=== PATIENT | female | born 1955 | race Caucasian/White ===

== ENCOUNTER → 2024-01-25 06:39 | Outpatient (REF) | payer OTHER, SELFPAY | LOC: MRI 06:39 | PROVIDERS: ATTENDING PHYSICIAN Orthopaedic Surgery; FAMILY PHYSICIAN Student in an Organized Health Care Education/Training Program | DX: M54.50 Low back pain, unspecified (principal); R10.2 Pelvic and perineal pain | CPT/HCPCS: 72148; 72195 ==

== ENCOUNTER → 2024-03-02 16:44 | Outpatient (REF) | payer OTHER, SELFPAY | LOC: RAD 16:44 | PROVIDERS: ATTENDING PHYSICIAN Internal Medicine | DX: J40 Bronchitis, not specified as acute or chronic (principal) | CPT/HCPCS: 71046 ==

== ENCOUNTER → 2024-03-14 15:04 | Outpatient (REF) | payer OTHER, SELFPAY | LOC: HWRAD 15:04 | PROVIDERS: ATTENDING PHYSICIAN Internal Medicine Critical Care Medicine; FAMILY PHYSICIAN Student in an Organized Health Care Education/Training Program | DX: J32.9 Chronic sinusitis, unspecified (principal) | CPT/HCPCS: 70486 ==

== ENCOUNTER 2024-03-22 13:25 | Inpatient (IN) | payer OTHER, SELFPAY ==
[2024-03-22] VITALS (11 sets, daily range): BP systolic 76–160; BP diastolic 42–96; BMI 31.4
--- NOTE | 2024-03-22 08:49 | ED.GENMED ---
History of Present Illness
General
Chief Complaint: Breathing Problem
Source: patient, records and ambulance crew
Exam Limitations: none
Time Seen by Provider: 03/22/24 08:43
Nursing documentation reviewed up to this point in time: agreed with
Travel History
Have you had any contact with someone who has COVID-19?: No
Do you have any symptoms of coronavirus? Fever > 100 degrees, chills, cough, shortness of breath, sore throat, loss of taste or smell, muscle aches, or headache?: No
History of Present Illness
History of Present Illness:
68-year-old female with past medical history of asthma/COPD, hypertension, hyperlipidemia, diabetes who presents to the emergency room from home via EMS for evaluation of shortness of breath and cough. Patient reports symptoms started earlier this
morning around 5 AM and they have been constant and worsening since that time. She reports hacking cough with wheezing and shortness of breath. She thinks similar to prior asthma/COPD exacerbations. She says that she used her rescue inhaler as
well as nebulizer treatment at home without improvement and EMS was called to bring her to the hospital for assessment. She does note that she just finished a short course of steroids for an asthma/COPD exacerbation. She denies any chest pain.
She denies any subjective fever. Denies any URI type symptoms recently. She denies any GI issues. Per EMS on their arrival she was hypoxic to 88% and was placed on nasal oxygen. She was given 125 mg of IV Solu-Medrol from EMS as well as [address] to the hospital[address]
Past History
Past History
ED Past Medical History: Asthma, CVA, HTN, Hypercholesterolemia, NIDDM, [place] and Psychiatric
ED Past Surgical History: Cholecystectomy, Gynecological (Hysterectomy), Orthopedic (right knee replacement) and Other (Gastric bypass)
Social History
Tobacco: Non-smoker
Alcohol: None
Drug: None
Personal:
Living: alone
Employment: Disabled
Family History
Family History: Asthma
Review of Systems
Review of Systems
All Other Systems: ROS reviewed and negative except as documented in HPI and ROS
Constitutional: Denies fever or chills
EENT: Denies sore throat or runny nose
Respiratory: Reports cough and trouble breathing
Cardiac: Denies chest pain or palpitations
ABD/GI: Denies abdominal pain, nausea or vomiting
: Denies dysuria or flank pain
Musculoskeletal: Denies edema, neck pain or back pain
Neurological: Denies dizzy or headache
Phy Exam
Physical Exam
Physical Exam:
General: Awake, alert
Head: Normocephalic, atraumatic
Eyes: Conjunctiva normal
Throat: Airway intact, handling secretions
Neck: Trachea midline, supple without meningismus
Lungs: Patient is hypoxic to 88% on room air, tachypneic, speaking in 3-4 word sentences; she has diffuse expiratory wheezing and hacking cough
Heart: Tachycardia with regular rhythm, no murmurs, gallops, or rubs
Abd: Soft, non distended, nontender
Neuro: Cranial nerves grossly intact, speech fluid
Skin: no rash
Extremities: Trace bilateral lower extremity edema, equal pulses in all extremities
Scores
Heart Failure Risk
Heart Failure Risk Score: Not Applicable
Heart Score for Chest Pain Patients
STEMI patient?: Not applicable
Withdrawal Assessment of Alcohol
Withdrawal Assessment Completed?: Not applicable
Course
Orders/Labs/Results
Orders:
Orders
03/22/24 08:48
Electrocardiogram (*1) Urgent
Reason for Study: Shortness of Breath
EKG- Treatment ONCE
CR Chest Portable - 1 View Urgent
Comment:
Reason For Exam: cough, fever
Reason Study Needs to be Portable: Unable to Transport
03/22/24 08:49
Ipratropium/Albuterol Sulfate [Duoneb] 3 ml INH R NOW STA
03/22/24 08:51
Acetaminophen 1000MG/100Ml [Ofirmev] 1,000 mg in 100 ml .ROUTE .STK-MED
Acetaminophen [Tylenol/Feverall] 650 mg RECTAL NOW STA
03/22/24 08:53
COVID-19 Antigen Urgent
Source: Nasal Swab
Complete Blood Count/With Diff Urgent
Comprehensive Metabolic Panel Urgent
Lactate Level [Lactic Acid] Urgent
Blood Culture Q30M
ELINOR Source: Blood/Venous
Specimen Description:
Influenza A+B Rapid Molecular Urgent
ELINOR Source: Nasal Swab
Specimen Description:
03/22/24 08:54
Blood Culture Q30M
ELINOR Source: Blood/Venous
Specimen Description:
03/22/24 09:10
CefTRIAXone [Rocephin] 1,000 mg IV NOW STA
03/22/24 09:16
Urinalysis Reflex To Culture Urgent
Date Specimen was Collected: 03/22/24
Time Specimen was Collected: 08:58
Urine Microscopic Reflex Cult Urgent
Urine Culture Urgent
ELINOR Source: U
Specimen Description:
Date Specimen was Collected: 03/22/24
Time Specimen was Collected: 08:58
03/22/24 09:18
Doxycycline Hyclate [Vibramycin] 100 mg 0.9% Sodium Chloride 250 ml [Nss] 250 ml IV NOW
03/22/24 09:25
0.9% Sodium Chloride 500 ml [Nss] 500 ml IV BOLUS
Abnormal Lab Results
03/22/24 03/22/24
08:53 09:16
MCHC 32.4 L g/dL
(33.0-37.0)
Absolute Neuts (auto) 8.0 H 10^3/uL
(1.4-6.5)
Absolute Lymphs (auto) 0.6 L 10^3/uL
(1.2-3.4)
Neutrophils % 91.0 H %
(42.2-75.2)
Lymphocytes % 7.1 L %
(20.5-51.1)
Monocytes % 1.5 L %
(1.7-9.3)
BUN 18 H mg/dl
(7-17)
Glucose 151 H mg/dl
(70-99)
Lactic Acid 2.3 H mmol/L
(0.7-2.0)
Total Bilirubin 1.4 H mg/dl
(0.2-1.3)
Alkaline Phosphatase 144 H U/L
(38-126)
Ur Occult Blood Reflex 1+ A
(Negative)
Leukocyte Esterase Rfl 1+ A
(Negative)
Urine RBC 3-6 A /HPF
(0-2)
Urine Bacteria (Reflex) Many A
(Negative)
03/22/24 08:53
03/22/24 08:53
Vital Signs
Initial and Last Documented VS:
Initial Vital Signs
BP
160/81
03/22/24 08:45
Last Documented Vital Signs
Temp Pulse Resp BP Pulse Ox
39.4 C H 102 24 121/60 93
03/22/24 08:46 03/22/24 10:45 03/22/24 10:45 03/22/24 10:00 03/22/24 10:45
MDM/Problems Addressed
Differential Diagnosis Includes:
Asthma exacerbation/COPD exacerbation, pneumonia, bronchitis
MDM/Problems Addressed:
68-year-old female with history as above presents for cough and shortness of breath that she says started earlier this morning and has not improved with home inhalers/nebs. Received IV steroid and DuoNeb from EMS on the way to the hospital. On
arrival she is hypertensive, tachycardic, tachypneic, hypoxic, febrile. Exam as above. Plan to place an IV check labs including a CBC and a CMP, lactate, blood cultures. Send swabs for COVID and flu. Obtain chest x-ray and EKG. Will treat with
Tylenol for fever. Will treat with DuoNeb. Reassess after the above.
Chest x-ray reviewed by me shows right-sided pneumonia�will cover with antibiotics for community-acquired pneumonia. Patient with multiple SIRS criteria concern potentially for sepsis also high risk given her history of asthma/COPD�warrants
admission for treatment of pneumonia. Will discuss with hospitalist pending labs.
Labs reviewed: CBC shows predominant neutrophils but otherwise unremarkable, CMP no clinically significant abnormalities. Her lactate is slightly elevated at 2.3. Provide some gentle fluids. COVID and flu negative. Case discussed with
hospitalist for admission.
Chronic conditions affecting care:
Asthma/COPD
Acute Exacerbation and/or Progression of Chronic Illness:
Acutely hypertensive
Acute Exacerbation and/or Progression of Chronic Illness: HTN
*Radiology
Radiology exam reviewed: preliminary read by ED provider and radiology read reviewed
*Pulse Oximetry
Patient hypoxic: yes
*EKG
Interpreted by ED Provider?: Yes
Heart Rate: 107
Rate: tachycardiac
Rhythm: sinus and sinus tachycardia
Sayre: normal axis
Interval: normal interval
QRS Pattern: normal QRS
Ischemia: non-specific ST changes
*Critical Care Note
Total Time (30-74mins, 75-104mins- exclusive of procedures): 35
comment:
Critical care statement: A total of 35 minutes of critical care time was provided for this patient. This includes management of unstable vital signs, evaluation of the patient at bedside, frequent reassessment, discussion with
consultants/hospitalist, and review of pertinent medical records. This time was separate from time utilized to perform any aforementioned documented procedures
Data Reviewed
Review of Other/Old Records Reveals: Labs and Records
Source: patient, records and ambulance crew
Patient Management
Discussion with other providers: Hospitalist (Discussed with hospitalist)
Escalation/DeEscalation of care consider admission/obs:
Admission indicated
ED Attending Note
-
Portions of this chart may have been created with voice recognition software.� Occasional wrong word or��sound alike� substitutions may have occurred due to the inherent limitations of voice recognition software.
Discharge Plan
Departure
Patient Disposition: Admit
Date of Disposition: 03/22/24
Time of Disposition: 09:23
Admit to doctor: Arpan
Presentation/result/management discussed w/ accepting MD/DO: Hospitalist
Discharge Problem:
Pneumonia, Sepsis, COPD exacerbation
Prescriptions:
No Action
famotidine 40 MG tablet
40 mg PO HS
atorvastatin 80 mg Tablet
80 mg PO DAILY
clopidogrel 75 mg Tablet
75 mg PO DAILY
pantoprazole [Protonix] 40 mg Tablet,Delayed Release (Dr/Ec)
40 mg PO BID
benzonatate 200 mg Capsule
200 mg PO TIDPRN PRN (Reason: cough)
donepezil 10 mg Tablet
10 mg PO HS
sennosides-docusate sodium 8.6-50 mg Tablet
3 tab-cap PO HS Qty: 0
meclizine 12.5 mg Tablet
12.5 mg PO TID
alprazolam 0.5 mg Tablet
0.5 mg PO QID
Patient Comments:
07/13/2023: last filled 07/13/23, 120 tabs for 30 days from [facility]
levothyroxine 50 mcg Tablet
50 mcg PO DAILY
mirtazapine 45 mg Tablet
45 mg PO HS
valsartan 40 mg Tablet
20 mg PO DAILY
levalbuterol tartrate [Xopenex HFA] 45 mcg/actuation Hfa Aerosol Inhaler
2 inh INHALATION R Q6HPRN PRN (Reason: sob) Qty: 0
ZTlido 1.8 % Adhesive Patch,Medicated
3 patch TOPICAL DAILYPRN PRN (Reason: b/l knee,hip and/or lower back)
Rx Instructions:
UP TO 3 patches a day max on at HS off in am
benztropine 1 mg Tablet
1 mg PO BID@1200,2000
cyclobenzaprine 10 mg Tablet
10 mg PO HS
cyanocobalamin (vitamin B-12) 1,000 mcg Tablet
1,000 mcg PO Q48H
hydrocodone-acetaminophen 10-325 mg Tablet
1 tab PO Q6H PRN (Reason: severe pain)
Patient Comments:
07/13/2023: last filled 07/02/23, 120 tabs for 30 days from [facility]
benztropine 2 mg Tablet
2 mg PO DAILY
ergocalciferol (vitamin D2) 1,250 mcg (50,000 unit) Capsule
1,250 mcg PO WE
ondansetron 4 mg Tablet,Disintegrating
4 mg PO BIDPRN PRN (Reason: nausea)
memantine 10 mg tablet
10 mg PO BID
lidocaine-prilocaine 2.5-2.5 % Cream
1 applic TOPICAL Q8HPRN PRN (Reason: breakthrough mild pain )
Rx Instructions:
apply to bilateral knees, bilateral hips and lower back
tizanidine 2 mg tablet
2 mg PO BID
furosemide 40 MG tablet
40 mg PO TUSA
budesonide-formoterol [Symbicort] 160-4.5 mcg/actuation Hfa Aerosol Inhaler
2 inh INHALATION R BID
fluticasone propionate [Flonase] 50 mcg/actuation [place],Suspension
1 spray INTRANASAL BID
cranberry 500 mg Capsule
4,200 mg PO BID
pregabalin [Lyrica] 25 mg Capsule
25 mg PO TIDPRN PRN (Reason: neuropathy)
Viactiv 500-100-40 mg-unit-mcg Tablet,Chewable
1 tab PO DAILY
potassium chloride 20 mEq Tablet Extended Release
20 meq PO BID
sucralfate 1 gram tablet
1 g PO BIDPRN PRN (Reason: stomach ulcer)
Interventions
Interventions:
*Risk Screen - Suicide Last Done: 03/22/24 09:12
*General Assessment Last Done: 03/22/24 09:12
*Neglect/Abuse Screening Last Done: 03/22/24 09:12
*ED COVID-19 Vaccine History Last Done: 03/22/24 09:12
ED- Cardiac Assessment Last Done: 03/22/24 09:00
ED- Pulmonary Assessment Last Done: 03/22/24 09:00
Discharge Date and Time
Print Language: NAURUAN
[2024-03-22] MEDS: TYLENOL/FEVERALL 650 MG RECTAL (09:01)
[2024-03-22] MEDS: DUONEB 3 ML INH (09:01)
[2024-03-22 09:06] LABS: % Basophils 0.1 % (0-2); % Eosinophils 0.1 % (0-6); % Immature Granulocytes 0.2 % (0-0.5); % Lymphocytes 7.1 % (20.5-51.1); % Monocytes 1.5 % (1.7-9.3); Absolute Lymphocytes 0.6 10^3/uL (1.2-3.4); Absolute Monocytes 0.1 10^3/uL (0.1-0.6); Hematocrit 41.7 % (37.0-47.0); Hemoglobin 13.5 g/dL (12.0-16.0); Mean Corp Hgb Conc. 32.4 g/dL (33.0-37.0); Mean Corpuscular Hgb 29.7 pg (27.0-31.0); Mean Corpuscular Volume 91.9 fL (81.0-99.0); Nucleated Red Blood Cells % 0 %; Platelet Count 209 10^3/uL (130-400); Red Blood Cell Count 4.54 10^6/uL (4.20-5.40); Red Cell Dist. Width 13.4 % (11.5-14.5); White Blood Cell Count 8.8 10^3/uL (4.8-10.8)
[2024-03-22] MEDS: ROCEPHIN 1000 MG IV (09:17)
[2024-03-22 09:19] LABS: COVID-19 Antigen Negative (Negative)
[2024-03-22 09:20] LABS: Lactic Acid 2.3 mmol/L (0.7-2.0)
[2024-03-22 09:23] LABS: ALT (SGPT) 22 U/L (0-35); AST (SGOT) 29 U/L (14-36); Albumin 3.9 g/dl (3.5-5.0); Alkaline Phosphatase 144 U/L (38-126); Blood Urea Nitrogen 18 mg/dl (7-17); Calcium 8.5 mg/dl (8.4-10.2); Carbon Dioxide 27 mmol/L (22-30); Chloride 101 mmol/L (98-107); Glucose 151 mg/dl (70-99); Potassium 3.8 mmol/L (3.5-5.1); Sodium 137 mmol/L (135-145); Total Bilirubin 1.4 mg/dl (0.2-1.3); Total Protein 6.7 g/dl (6.3-8.2); eGFR > 60.00
[2024-03-22 09:28] LABS: Urine Albumin Negative (Neg - Trace); Urine Bilirubin Negative (Negative); Urine Character Clear (Clear); Urine Color Yellow; Urine Glucose Negative (Negative); Urine Ketone Negative (Negative); Urine Leukocyte 1+ (Negative); Urine Nitrite Negative (Negative); Urine Occult Blood 1+ (Negative); Urine Specific Gravity 1.015 (<1.030); Urine Urobilinogen Negative (Neg - 1+)
[2024-03-22] MEDS: NSS 500 IV (09:51)
[2024-03-22] MEDS: VIBRAMYCIN 260 MG IV (09:52)
[2024-03-22 10:14] LABS: Urine Bacteria Many (Negative); Urine Squamous Cell 0-2 /LPF (Few)
--- NOTE | 2024-03-22 11:47 | HPS.HSE ---
Family Physician
-
Family Physician: Torrie Arizmendi MD
Chief Complaint
-
Shortness of breath
History of Present Illness
68-year-old female presented to the ER with shortness of breath. Symptoms started white hat hacker and has been getting worse. She also has had a cough and wheezing. She used nebulizer without any improvement. Patient recently passed a course of
steroids for respiratory illness.
Medical History
Past Medical History
Past Medical History: Reports Other
Additional Past Medical History:
History of stroke, cognitive dysfunction, asthma, COPD, lung nodule, hypertension, hyperlipidemia, diverticulosis, GERD, fibromyalgia, osteoarthritis, rheumatoid arthritis, diabetes, glaucoma with surgery, anemia, anxiety and depression, obesity
Past Surgical History: Reports Other
Additional Past Surgical History:
Partial hysterectomy, cholecystectomy, right knee repair, bariatric surgery, tonsillectomy, carpal tunnel surgery, cataract surgery, glaucoma surgery
Social History
Tobacco: Non-smoker
Alcohol: None
Living: With Family
Family History
Family History: Diabetes (Father), Hypertension (Father and mother) and Other (CVA mother)
Allergies / Home Medications
Allergies reflects when Allergies were last updated in [facility].
Home Medications with original date entered in [facility]
Allergy/Medication List:
Allergies
Allergy/AdvReac Type Severity Reaction Status Date / Time
celecoxib [From Celebrex] Allergy Unknown Verified 03/22/24 08:47
hydrochlorothiazide Allergy Unknown Verified 03/22/24 08:47
NSAIDS (Non-Steroidal Allergy Gastric Verified 03/22/24 08:47
Anti-Inflamma Bypass
pregabalin [From Lyrica] Allergy Unknown Verified 03/22/24 08:47
promethazine Allergy Unknown Verified 03/22/24 08:47
zolpidem [From Ambien] Allergy Unknown Verified 03/22/24 08:47
Home Medications
famotidine 40 mg tablet 40 mg PO HS Gastrointestinal Issue 05/19/15
alprazolam 0.5 mg tablet 0.5 mg PO QID Mental Health/Anxiety 01/10/23
atorvastatin 80 mg tablet 80 mg PO DAILY High Cholesterol 01/10/23
benzonatate 200 mg capsule 200 mg PO TIDPRN PRN cough 01/10/23
clopidogrel 75 mg tablet 75 mg PO DAILY Blood Clot Prevention/Tx 01/10/23
donepezil 10 mg tablet 10 mg PO HS Mental Health/Anxiety 01/10/23
levalbuterol tartrate 45 mcg/actuation aerosol inhaler (Xopenex HFA) 2 inh inhalation R Q6HPRN PRN sob ##0 01/10/23
levothyroxine 50 mcg tablet 50 mcg PO DAILY Thyroid 01/10/23
lidocaine 1.8 % topical patch (ZTlido) 3 patch topical DAILYPRN PRN b/l knee,hip and/or lower back 01/10/23
meclizine 12.5 mg tablet 12.5 mg PO TID Vertigo 01/10/23
mirtazapine 45 mg tablet 45 mg PO HS Mental Health/Anxiety 01/10/23
pantoprazole 40 mg tablet,delayed release (Protonix) 40 mg PO BID Gastrointestinal Issue 01/10/23
sennosides 8.6 mg-docusate sodium 50 mg tablet 3 tab-cap PO HS Constipation ##0 01/10/23
valsartan 40 mg tablet 20 mg PO DAILY Blood Pressure 01/10/23
benztropine 1 mg tablet 1 mg PO BID@1200,2000 extrapyrimadal symptoms 01/12/23
benztropine 2 mg tablet 2 mg PO DAILY extrapyrimidal symptoms 05/14/23
cyanocobalamin (vitamin B-12) 1,000 mcg tablet 1,000 mcg PO Q48H Supplement 05/14/23
cyclobenzaprine 10 mg tablet 10 mg PO HS Muscle Spasms 05/14/23
ergocalciferol (vitamin D2) 1,250 mcg (50,000 unit) capsule 1,250 mcg PO WE Supplement 05/14/23
hydrocodone 10 mg-acetaminophen 325 mg tablet 1 tab PO Q6H PRN severe pain 05/14/23
lidocaine-prilocaine 2.5 %-2.5 % topical cream 1 applic topical Q8HPRN PRN breakthrough mild pain 05/14/23
memantine 10 mg tablet 10 mg PO BID Neurological Condition 05/14/23
ondansetron 4 mg disintegrating tablet 4 mg PO BIDPRN PRN nausea 05/14/23
furosemide 40 mg tablet 40 mg PO TUSA Fluid Retention/Swelling 07/13/23
tizanidine 2 mg tablet 2 mg PO BID Muscle Spasms 07/13/23
budesonide-formoterol HFA 160 mcg-4.5 mcg/actuation aerosol inhaler (Symbicort) 2 inh inhalation R BID Lung/Breathing Issues 10/08/23
calcium-vitamin D3-vitamin K 500 mg-100 unit-40 mcg chewable tablet 1 tab PO DAILY Supplement 03/22/24
cranberry 500 mg capsule 4,200 mg PO BID Supplement 03/22/24
fluticasone propionate 50 mcg/actuation nasal spray,suspension 1 spray intranasal BID Congestion 03/22/24
potassium chloride 20 mEq tablet,extended release 20 meq PO BID Electrolyte Repletion 03/22/24
pregabalin 25 mg capsule (Lyrica) 25 mg PO TIDPRN PRN neuropathy 03/22/24
sucralfate 1 gram tablet 1 g PO BIDPRN PRN stomach ulcer 03/22/24
Review of Systems
-
A 12 point ROS was completed and negative except as noted: Yes
Respiratory: Reports Cough and Trouble Breathing; Denies Hemoptysis
Cardiac: Denies Chest Pain
Abdomen/GI: Denies Abdominal Pain
Physical Exam
Vital Signs
Vital Signs
Temp Pulse Resp BP Pulse Ox
103.0 F H 102 24 121/60 93
03/22/24 08:46 03/22/24 10:45 03/22/24 10:45 03/22/24 10:00 03/22/24 10:45
Physical Exam
General: Comfortable
Respiratory: Rales
Cardiac: S1/S2 and Regular Rhythm
GI: Soft, Non Tender and Normal Bowel Sounds
Musculoskeletal: No Edema
Neuro: Awake, Alert, Oriented and No Motor Deficits
Psych: Calm
Laboratory Results
-
03/22/24 08:53
03/22/24 08:53
Laboratory Results
Lactic Acid 2.3 mmol/L (0.7-2.0) H 03/22/24 08:53
Total Bilirubin 1.4 mg/dl (0.2-1.3) H 03/22/24 08:53
AST 29 U/L (14-36) 03/22/24 08:53
ALT 22 U/L (0-35) 03/22/24 08:53
Alkaline Phosphatase 144 U/L (38-126) H 03/22/24 08:53
Data Reviewed
-
Diagnostic Radiology: Image Personally Visualized and interpreted (Chest x-ray reviewed by me-findings consistent with right-sided pneumonia)
Medical Tests (Nuc Med, Echo, EKG etc): Image Personally Visualized and interpreted (EKG-sinus tachycardia rate of [address]-T changes)
Impression/Plan
-
IMPRESSION/PLAN:
# Right lower lobe pneumonia
Acute hypoxic respiratory insufficiency secondary to above
Treat with ceftriaxone, Flagyl and doxycycline
Speech evaluation to rule out aspiration
History of video swallow in December 2022 which showed mild pharyngeal dysphagia
COVID-19 negative
Wean oxygen as tolerated
Sputum culture of possible
Known to out Pul group- will consult
# Mild lactic acidosis-repeat
# Asthma NOS, no exacerbation-likely secondary to above
Chronic cough, Flonase, Xopenex
On Symbicort
# Hypertension-valsartan
# Hyperlipidemia-statin
# Diabetes-diet controlled. Accu-Cheks BID. Check A1C
# Hypothyroidism-Synthroid 50 mcg daily
# Pulmonary nodule-Follows with Pulm
# History of CVA-Plavix, statin
# Anxiety depression/schizoaffective disorder-continue Xanax, benztropine, Remeron
# Cognitive dysfunction-on donepezil, memantine
# Sleep apnea not on CPAP reported bili resolved with weight loss
# Arthritis/fibromyalgia/rheumatoid arthritis/osteoarthritis/chronic pain-opiate dependent, Lyrica, Zanaflex
Unclear if HLA-B27 positive
# GERD-continue PPI, Carafate
# Chronic lower extremity edema-on Lasix Wednesday and Wednesday
# Chronic vertigo-on meclizine
# Microscopic Hematuria-repeat as outpatient.Add On Cx
# History of bariatric surgery
# Diverticulosis
# DVT prophylaxis-Lovenox
# CODE STATUS-Full
Time spent over 75 min
--- NOTE | 2024-03-22 12:10 | PTOTSP ---
Speech Language Pathology
Pt seen for clinical bedside swallow evaluation. Known to PHYSICIAN LIAISON from VSE completed 01/12/23 with some pentration to the level of the vocal folds noted with liquids. Recommendation was for regular solids/thin liquids with use of chin tuck. This date,
frequent coughing noted at rest. P.O. trials of puree, regular solids, and thin liquids provided. Slightly prolonged mastication given edentulous status, not a true oral dysphagia. Pt appropriately tucked chin majority of session, but noted to
take consecutive sips x1 without tucking chin on 1st in series. Pt with resultant throat clearing. Occasional dry cough noted, but this was similar to baseline cough.
Pt reported that she has had PNA multiple times since VSE completed in December 2022.
Recommend:
(1) Repeat VSE 03/23
(2) Regular solids/thin liquids pending VSE
(3) Aspiration precautions: single cup sips with use of chin tuck, sit upright, chew food thoroughly, slow rate
(4) Meds as tolerated
(5) PHYSICIAN LIAISON to continue to follow
[2024-03-22 15:21] LABS: Lactic Acid 2.6 mmol/L (0.7-2.0)
[2024-03-22] MEDS: FLAGYL 500 MG 100 IV (16:32)
[2024-03-22] MEDS: XOPENEX 1.25 MG INHALANT SOLUTION INH ×2 (16:39→19:51)
--- NOTE | 2024-03-22 17:56 | PTCARENOTE ---
Patient admitted from ER to room 41-01. Oriented to room, use of call michelle, and television and bed controls. Patient verbalizes understanding. Reviewed plan of care with patient. Patient verbalizes understanding of teaching. Vital signs stable.
Patient 95 % on 2L NC.
[2024-03-22 18:03] LABS: Glucose - Point of Care 197 mg/dl (70-99)
[2024-03-22] MEDS: ANTIVERT 12.5 MG PO ×2 (18:18→22:37)
[2024-03-22] MEDS: LOVENOX 40 MG SC (18:18)
--- NOTE | 2024-03-22 18:35 | PTCARENOTE ---
Noted small tick on right side of back. Used alcohol pads to back out tick and removed cleanly with tweezers. Very small red area noted on patient's skin.
[2024-03-22] MEDS: SYMBICORT 160/4.5 MCG INHALER 2 PUFF INH (19:51)
[2024-03-22] MEDS: PROTONIX 40 MG PO (20:59)
[2024-03-22] MEDS: ZANAFLEX 2 MG PO (20:59)
[2024-03-22] MEDS: VIBRAMYCIN 100 MG PO (20:59)
[2024-03-22] MEDS: MUCINEX 600 MG PO (20:59)
[2024-03-22] MEDS: COGENTIN 1 MG PO (21:00)
[2024-03-22] MEDS: ARICEPT 10 MG PO (21:00)
[2024-03-22] MEDS: NAMENDA 10 MG PO (21:00)
[2024-03-22] MEDS: KCL 20 MEQ PO (21:00)
[2024-03-22] MEDS: FLEXERIL 10 MG PO (21:01)
[2024-03-22] MEDS: SENOKOT-S 3 TABLET PO (21:01)
[2024-03-22] MEDS: PEPCID 40 MG PO (21:01)
[2024-03-22 21:34] LABS: Glucose - Point of Care 274 mg/dl (70-99)
[2024-03-22] MEDS: REMERON 45 MG PO (22:37)
[2024-03-23] VITALS (10 sets, daily range): BP systolic 82–128; BP diastolic 42–67; PULSE 85; O2SAT 95; BMI 30.8
[2024-03-23] MEDS: FLAGYL 500 MG 100 IV ×3 (00:52→16:01)
[2024-03-23] MEDS: EMLA CREAM 1 GRAM TOPICAL ×2 (01:54→21:44)
--- NOTE | 2024-03-23 03:37 | PTCARENOTE ---
Pt aaox3 anxious at times.Pt refuses for a bed alarm,pt fall risk,rings appropriately as needed to get OOB,safety precautions explained. Pt BP noted to be 85/43 automatic,manual 76/42 pt asymptomatic. TRACK SUPERVISOR television inspector made aware of pt BP & aware of pt
on a lot of home meds & is asking for PO Vicodin, xanax,lyrica,pt made aware of unable to give these meds due to low BP range, pt not happy about not getting meds this time. SODIUM CHLORITE OPERATOR television inspector was made aware of it.Plan of care continued. Pt resting
comfortably at this time.
[2024-03-23 05:37] LABS: Hematocrit 31.9 % (37.0-47.0); Hemoglobin 10.2 g/dL (12.0-16.0); Mean Corpuscular Hgb 29.5 pg (27.0-31.0); Mean Corpuscular Volume 92.2 fL (81.0-99.0); Mean Platelet Volume 9.5 fL (7.4-10.4); Platelet Count 167 10^3/uL (130-400); Red Blood Cell Count 3.46 10^6/uL (4.20-5.40); Red Cell Dist. Width 13.8 % (11.5-14.5); White Blood Cell Count 17.6 10^3/uL (4.8-10.8)
[2024-03-23 06:06] LABS: Blood Urea Nitrogen 15 mg/dl (7-17); Calcium 8.4 mg/dl (8.4-10.2); Carbon Dioxide 29 mmol/L (22-30); Chloride 103 mmol/L (98-107); Estimated Creatinine Clearance 107 ml/min; Glucose 112 mg/dl (70-99); Potassium 3.9 mmol/L (3.5-5.1); Sodium 137 mmol/L (135-145); eGFR > 60.00
[2024-03-23] MEDS: SYNTHROID 50 MCG PO (06:27)
[2024-03-23] MEDS: XOPENEX 1.25 MG INHALANT SOLUTION INH ×3 (07:29→20:30)
[2024-03-23] MEDS: SYMBICORT 160/4.5 MCG INHALER 2 PUFF INH ×2 (07:30→20:30)
--- NOTE | 2024-03-23 07:33 | CON.PUL ---
Consultation
Consultation Request
Date/Time Consultation Requested: 03/23/2024-8 AM
Date/Time Consultation Performed: 03/23/2024-8:30 AM
Requesting Provider: Hospitalist
Performing Provider: Dr. Tse
Reason for Consultation: Shortness of breath
Medical History
-
Chief Complaint: Shortness of breath
History of Present Illness:
68-year-old female with underlying asthma, pulmonary nodule, hypertension, hyperlipidemia, fibromyalgia, depression and anxiety presents with increasing shortness of breath, chest congestion unresponsive to outpatient therapy and noted to have a
right lower lobe pneumonia-pulmonary consulted for pneumonia 03/23/2024. She complains she continues to have chest congestion, minimal cough and some wheezing. She has some dyspnea on exertion. She denies any chest pain, chest tightness, pleurisy,
abdominal pain, reflux, anorexia, leg swelling or weakness.
Past Medical History
Past Medical History: None (Asthma. Pulmonary nodule. EVELINA resolved with weight loss. Obesity/bariatric surgery. Hypertension. Hyperlipidemia. Diabetes. Hypothyroid. History CVA. Anxiety/depression/schizoaffective disorder. Cognitive
dysfunction. GERD. Vertigo. Diverticulosis.)
Past Surgical History: None (Cholecystectomy. Right knee repair. Tonsillectomy. Carpal tunnel 2020 11/2022. Cataract. Glaucoma. Hysterectomy.)
Social History
Tobacco: Non-smoker
Alcohol: None
Drug: None
Occupational Exposures: No known asbestos exposure
Environmental Exposures: No known tuberculosis exposure
Family History
Family History: Other (Father-COPD. Mother-CVA and hypertension.)
Allergies / Home Medications
Allergies
Allergy/AdvReac Type Severity Reaction Status Date / Time
celecoxib [From Celebrex] Allergy Unknown Verified 03/22/24 08:47
hydrochlorothiazide Allergy Unknown Verified 03/22/24 08:47
NSAIDS (Non-Steroidal Allergy Gastric Verified 03/22/24 08:47
Anti-Inflamma Bypass
pregabalin [From Lyrica] Allergy Unknown Verified 03/22/24 08:47
promethazine Allergy Unknown Verified 03/22/24 08:47
zolpidem [From Ambien] Allergy Unknown Verified 03/22/24 08:47
Home Medications
�Medication �Instructions �Recorded �Confirmed �Last Taken �Type
famotidine 40 mg tablet 40 mg PO HS Gastrointestinal Issue 05/19/15 03/22/24 03/21/24 History
alprazolam 0.5 mg tablet 0.5 mg PO QID Mental Health/Anxiety 01/10/23 03/22/24 03/22/24 History
atorvastatin 80 mg tablet 80 mg PO DAILY High Cholesterol 01/10/23 03/22/24 03/22/24 History
benzonatate 200 mg capsule 200 mg PO TIDPRN PRN cough 01/10/23 03/22/24 Unknown History
clopidogrel 75 mg tablet 75 mg PO DAILY Blood Clot 01/10/23 03/22/24 03/22/24 History
Prevention/Tx
donepezil 10 mg tablet 10 mg PO HS Mental Health/Anxiety 01/10/23 03/22/24 03/21/24 History
levalbuterol tartrate 45 2 inh inhalation R Q6HPRN PRN sob 01/10/23 03/22/24 Unknown History
mcg/actuation aerosol inhaler ##0
(Xopenex HFA)
levothyroxine 50 mcg tablet 50 mcg PO DAILY Thyroid 01/10/23 03/22/24 03/22/24 History
lidocaine 1.8 % topical patch 3 patch topical DAILYPRN PRN b/l 01/10/23 03/22/24 03/22/24 History
(ZTlido) knee,hip and/or lower back
meclizine 12.5 mg tablet 12.5 mg PO TID Vertigo 01/10/23 03/22/24 03/22/24 History
mirtazapine 45 mg tablet 45 mg PO HS Mental Health/Anxiety 01/10/23 03/22/24 03/21/24 History
pantoprazole 40 mg tablet,delayed 40 mg PO BID Gastrointestinal Issue 01/10/23 03/22/2403/22/24 History
release (Protonix)
sennosides 8.6 mg-docusate sodium 3 tab-cap PO HS Constipation ##0 01/10/23 03/22/24 03/21/24 History
50 mg tablet
valsartan 40 mg tablet 20 mg PO DAILY Blood Pressure 01/10/23 03/22/24 03/22/24 History
benztropine 1 mg tablet 1 mg PO BID@1200,2000 01/12/23 03/22/24 03/21/24 History
extrapyrimadal symptoms
benztropine 2 mg tablet 2 mg PO DAILY extrapyrimidal 05/14/23 03/22/24 03/22/24 History
symptoms
cyanocobalamin (vitamin B-12) 1,000 mcg PO Q48H Supplement 05/14/23 03/22/24 Unknown History
1,000 mcg tablet
cyclobenzaprine 10 mg tablet 10 mg PO HS Muscle Spasms 05/14/23 03/22/24 03/21/24 History
ergocalciferol (vitamin D2) 1,250 1,250 mcg PO WE Supplement 05/14/23 03/22/24 03/22/24 History
mcg (50,000 unit) capsule
hydrocodone 10 mg-acetaminophen 1 tab PO Q6H PRN severe pain 05/14/23 03/22/24 03/22/24 History
325 mg tablet
lidocaine-prilocaine 2.5 %-2.5 % 1 applic topical Q8HPRN PRN 05/14/23 03/22/24 Unknown History
topical cream breakthrough mild pain
memantine 10 mg tablet 10 mg PO BID Neurological Condition 05/14/23 03/22/24 03/22/24 History
ondansetron 4 mg disintegrating 4 mg PO BIDPRN PRN nausea 05/14/23 03/22/24 Unknown History
tablet
furosemide 40 mg tablet 40 mg PO TUSA Fluid 07/13/23 03/22/24 03/21/24 History
Retention/Swelling
tizanidine 2 mg tablet 2 mg PO BID Muscle Spasms 07/13/23 03/22/24 03/22/24 History
budesonide-formoterol HFA 160 2 inh inhalation R BID 10/08/23 03/22/24 03/22/24 History
mcg-4.5 mcg/actuation aerosol Lung/Breathing Issues
inhaler (Symbicort)
calcium-vitamin D3-vitamin K 500 1 tab PO DAILY Supplement 03/22/24 03/22/24 03/22/24 History
mg-100 unit-40 mcg chewable tablet
cranberry 500 mg capsule 4,200 mg PO BID Supplement 03/22/24 03/22/24 03/22/24 History
fluticasone propionate 50 1 spray intranasal BID Congestion 03/22/24 03/22/24 03/22/24 History
mcg/actuation nasal
spray,suspension
potassium chloride 20 mEq 20 meq PO BID Electrolyte Repletion 03/22/24 03/22/24 03/22/24 History
tablet,extended release
pregabalin 25 mg capsule (Lyrica) 25 mg PO TIDPRN PRN neuropathy 03/22/24 03/22/24 Unknown History
sucralfate 1 gram tablet 1 g PO BIDPRN PRN stomach ulcer 03/22/24 03/22/24 Unknown History
Review of Systems
-
Unable to Obtain full review of systems at this time due to: Other (Per HPI)
Vitals / Labs / Diagnostic Testing
Vital Signs
Temp Pulse Resp BP Pulse Ox
98.2 F 88 19 102/52 98
03/23/24 03:12 03/23/24 06:30 03/23/24 03:12 03/23/24 06:30 03/23/24 03:12
Lab Data
03/23/24 05:16
03/23/24 05:16
Microbiology
03/22/24 08:53 Nasal Swab Influenza Types A & B (DEL) - Final
Negative for Influenza A & B, NAAT
Negative results must be combined with clinical observations
and patient history.
Nucleic Acid Amplification test (NAAT)performed on the
[employer] platform.
Diagnostic Testing:
Physical Exam
-
Exam:
Well-nourished and well-developed in no apparent distress
HEENT-atraumatic, normocephalic
Neck-supple, no JVD, no bruit
Heart-regular rate and rhythm-no murmurs, rubs or gallops
Chest with diminished breath sounds, crackles at the right greater than left base and no wheezes
Back without tenderness
Abdomen-soft, nontender, nondistended, no hepatosplenomegaly
Extremities-no cyanosis, clubbing, edema and good peripheral pulses
Integument-intact, no rashes, lesions or ecchymosis
Neurology-alert and oriented, nonfocal motor and sensory exam
Assessment
-
68-year-old female with underlying asthma, pulmonary nodule, hypertension, hyperlipidemia, fibromyalgia, depression and anxiety presents with increasing shortness of breath, chest congestion unresponsive to outpatient therapy and noted to have a
right lower lobe pneumonia-pulmonary consulted for pneumonia 03/23/2024.
Right lower lobe pneumonia-suspect aspiration
Aspiration risk
Mild lactic acidosis
Asthma-mild intermittent with no exacerbation
Chronic cough
Leukocytosis
Nedmhr-[id number]-[id number] 10.2
Mild hyperglycemia
Conditions present prior to admission:
Asthma.
Pulmonary nodule.
Recurrent pneumonia-aspiration suspected
EVELINA resolved with weight loss.
Obesity/bariatric surgery.
Hypertension.
Hyperlipidemia.
Diabetes.
Hypothyroid.
History CVA.
Anxiety/depression/schizoaffective disorder.
Cognitive dysfunction.
GERD.
Vertigo.
Diverticulosis.
Cholecystectomy. Right knee repair. Tonsillectomy. Carpal tunnel 11/2022. Cataract. Glaucoma. Hysterectomy.
Plan
Patient followed closely by Dr. Szymanski.
Patient has underlying asthma maintained on Symbicort and Xopenex as needed, he also treats for postnasal drip with Aurea, Astelin and Flonase-he ordered CT sinuses
Patient has frequent recurrent pneumonias and waxing and waning nodules suspected related to aspiration with underlying severe reflux-ongoing problem after bariatric surgery
Radiographs, CT of the chest, CT of the sinuses, lower extremity ultrasound and pulmonary functions were reviewed and summarized below
Supplemental oxygen as needed
Incentive spirometry
Aspiration precautions
Speech therapy/video swallow
Mucolytic's
Antitussives
Nebulizers and inhalers as needed-on Symbicort and Xopenex nebulizers
Steroids not indicated
Check cultures
Broad-spectrum antibiotics-on ceftriaxone, doxycycline and metronidazole
Follow radiographically
Monitoring leukocytosis
Follow hemoglobin
Transfuse if needed
Monitor blood sugar
Insulin supplementation as needed
DVT prophylaxis-on Lovenox
GI prophylaxis-on pantoprazole
Nutrition with aspiration precautions
Early mobilization
Patient was last seen by Dr. Szymanski 03/07/2024 and has a follow-up appointment 04/05/2024 at 4:15 PM
Diagnostic data:
CXR 10/29/22: New areas of linear interstitial airspace disease in the right middle lobe and basilar portion of the left lower lobe suggesting interstitial pneumonia/bronchiolitis
Chest x-ray 03/02/2024-��NAD
Chest x-ray 03/22/20241887-[id number]-[id number] pneumonia, no large parapneumonic effusion is appreciated
CT scan08/09/2023: Reviewed,Jermaine Stanley 08/24/2023 08:54:12 AM >��1. Stable left lisa-fissural nodule, likely benign.2.� Interval resolution of previously seen left upper lobe groundglass densities.��������-��������CXR 05/16/2023: Right
upper lobe pneumonia appears unchanged. Linear foci in the left lower lobe may be subsegmental atelectasis.��������-��������
CT chest 04/12/2023: Previous opacity/pneumonia in the right lower lobe has resolved. Mild scarring versus atelectasis in the mid to lower lung zones. A perifissural nodule in the left mid to lower lung zone has remained stable. Multiple subtle
groundglass nodular opacities have developed in the left upper lobe measuring up to 8.4 mm.��������-
VSE 01/12/2023: Upper laryngeal penetration. No aspiration.��������-��������
CT chest 01/10/2023:showed no evidence for central pulmonary embolism. Patchy right lower lobe opacification, most likely pneumonia. Prominence of pulmonary interstitium some vague groundglass opacities bilaterally, sparing the Overload. Mild chronic
fiber changes.��������-��������
CT chest01/10/2023: showed no evidence for acute pulmonary embolism.Right lower lobe airspace disease, likely pneumonia, new compared to November 2022. Mild bilateral groundglass opacities.Stable left lower lobe pulmonary nodule.��������-��������
CT chest 2022:Reviewed, showed 8 mm pleural-based pulmonary nodule slightly increased compared to prior examinations.����������������-��������
��������
CT chest 05/08/2022: Solid pleural-based 8 mm left lower lobe pulmonary nodule. Appearance of slight increase in size. However this can be due to the location and the slice image. Moderate right upper lobe and right lower lobe atelectasis versus
scarring. Mild lingular and right middle lobe atelectasis versus scarring. Gallbladder has been removed.
CT sinus 03/14/2024-unremarkable CT of the sinuses
Lower extremity ultrasound 03/22/2024-no evidence for DVT
PFT 08/24/2023-FEV1 2.16-86%, FVC 2.78-84%, TLC 76%, RV 55%, DLCO 72%, DLCO/VA 89%
Data Reviewed
-
PFT: Report reviewed by me
EKG: Report reviewed by me
Radiology: Image personally visualized and interpreted and Report reviewed by me
CT Scan: Image personally visualized and interpreted and Report reviewed by me
Medical Tests (Nuc Med, Echo etc): Report reviewed by me
Labs: Labs reviewed by me
Old Records: Reviewed
Total Time Spent with Patient (in minutes): 65
[2024-03-23 08:10] LABS: Glucose - Point of Care 147 mg/dl (70-99)
[2024-03-23] MEDS: KCL 20 MEQ PO ×2 (08:29→19:32)
[2024-03-23] MEDS: PROTONIX 40 MG PO ×2 (08:29→19:32)
[2024-03-23] MEDS: ZANAFLEX 2 MG PO ×2 (08:29→19:33)
[2024-03-23] MEDS: DIOVAN 20 MG PO (08:29)
[2024-03-23] MEDS: MUCINEX 600 MG PO ×2 (08:29→19:32)
[2024-03-23] MEDS: VIBRAMYCIN 100 MG PO ×2 (08:30→19:32)
[2024-03-23] MEDS: OSCAL 500 + D 500 MG PO (08:30)
[2024-03-23] MEDS: COGENTIN 2 MG PO (08:31)
[2024-03-23] MEDS: LIPITOR 80 MG PO (08:31)
[2024-03-23] MEDS: PLAVIX 75 MG PO (08:31)
[2024-03-23] MEDS: VITAMIN B-12 1000 MCG PO (08:31)
[2024-03-23] MEDS: ROCEPHIN 1000 MG IV (08:34)
[2024-03-23] MEDS: STERILE WATER FOR INJECTION 10 ML IV (08:34)
[2024-03-23] MEDS: NORCO 5/325 2 TABLET PO ×3 (08:44→21:42)
[2024-03-23] MEDS: ANTIVERT 12.5 MG PO ×3 (09:00→21:42)
--- NOTE | 2024-03-23 09:06 | W.PN.HOSP.TC ---
Today's Communication/Plan
-
Continue AB
VSE today
ID eval for tick bite
Assessment / Plan
Assessment / Plan
68 y/o female with fever and cough
A tick found on her back retrieved. Pt says she doesn't go out. But she has dogs .
CVS: S1-S2 normal
Chest: rales
Abdomen: Soft, NT / Bowel sounds present
Extremities: No edema
# Right lower lobe pneumonia
white count up today
Acute hypoxic respiratory insufficiency secondary to above
Treat with ceftriaxone, Flagyl and doxycycline
Speech evaluation noted
VSE today
History of video swallow in December 2022 which showed mild pharyngeal dysphagia
COVID-19 negative
Wean oxygen as tolerated
Sputum culture of possible
Pulm consulted
#Tick found on the body-
Fever may be from pneumonia , but will consult ID
# Mild lactic acidosis-repeat today
# Asthma NOS, no exacerbation-likely secondary to above
Chronic cough, Flonase, Xopenex
On Symbicort
#Anemia- Hb drop noted- Will repeat
# Hypertension-valsartan
# Hyperlipidemia-statin
# Diabetes-diet controlled. Accu-Cheks BID. Check A1C
# Hypothyroidism-Synthroid 50 mcg daily
# Pulmonary nodule-Follows with Pulm
# History of CVA-Plavix, statin
# Anxiety depression/(On the chart but pt denies schizoaffective disorder)-continue Xanax, benztropine, Remeron
# Cognitive dysfunction-on donepezil, memantine
# Sleep apnea not on CPAP reported bili resolved with weight loss
# Arthritis/fibromyalgia/rheumatoid arthritis/osteoarthritis/chronic pain-opiate dependent, Lyrica, Zanaflex
Unclear if HLA-B27 positive
# GERD-continue PPI, Carafate
# Chronic lower extremity edema-on Lasix Wednesday and Wednesday
# Chronic vertigo-on meclizine
# Microscopic Hematuria-repeat as outpatient.Add On Cx
# History of bariatric surgery
# Diverticulosis
# DVT prophylaxis-Lovenox
# CODE STATUS-Full
Anticipated Discharge: 24 - 48 hours
Subjective/Interval History
-
Date of Service: March 23, 2024
Objective Data
-
Labs:
Laboratory Results
03/23/24
05:16
WBC 17.6 H
Hgb 10.2 L D
Hct 31.9 L
Plt Count 167 D
Sodium 137
Potassium 3.9
Chloride 103
Carbon Dioxide 29
BUN 15
Creatinine 0.6
Glucose 112 H
Calcium 8.4
Vital Signs:
Vital Signs
Temp Pulse Resp BP Pulse Ox
98.3 F 90 22 113/55 95
03/23/24 08:40 03/23/24 08:40 03/23/24 08:40 03/23/24 08:40 03/23/24 08:40
I&O
03/22/24 03/23/24 03/24/24
06:59 06:59 06:59
Intake Total 440 / 440
Output Total 900 / 900
Balance -460 / -460
[2024-03-23] MEDS: NAMENDA 10 MG PO ×2 (09:12→19:32)
[2024-03-23] MEDS: XANAX 0.5 MG PO ×2 (10:18→22:47)
[2024-03-23 11:37] LABS: Lactic Acid 2.7 mmol/L (0.7-2.0)
[2024-03-23 11:54] LABS: Hematocrit 30.3 % (37.0-47.0); Hemoglobin 9.9 g/dL (12.0-16.0); Mean Corp Hgb Conc. 32.7 g/dL (33.0-37.0); Mean Corpuscular Hgb 30.1 pg (27.0-31.0); Mean Corpuscular Volume 92.1 fL (81.0-99.0); Mean Platelet Volume 9.5 fL (7.4-10.4); Platelet Count 154 10^3/uL (130-400); Red Blood Cell Count 3.29 10^6/uL (4.20-5.40); Red Cell Dist. Width 13.8 % (11.5-14.5); White Blood Cell Count 15.6 10^3/uL (4.8-10.8)
[2024-03-23] MEDS: COGENTIN 1 MG PO ×2 (12:42→19:32)
[2024-03-23 13:14] LABS: Glycohemoglobin (HgbA1c) 5.7 % (4.0-5.6)
--- NOTE | 2024-03-23 14:01 | PTOTSP ---
Video Swallow Study
Summary: Patient presents with mild oral/pharyngeal stages of swallowing and concern for possible esophageal dysphagia (i.e., moderate retention in esophagus reduced w/ liquid washes). No aspiration occurred. Please see patient care note for full
details of penetration/aspiration and swallowing physiology.
Recommend:
1. Regular (pick soft/moist foods which are easy to chew), Thin Liquids
2. Medications as best tolerated
3. Strategies: upright to 90 degrees, small single sips/bites, tuck chin, slow rate, small frequent meals, reflux precautions
4. Oral care 3x daily
5. GI consult to assess esophageal stage of swallowing.
6. Brief dysphagia f/u at the acute care level.
--- NOTE | 2024-03-23 16:45 | CON.ID ---
Consultation
-
Date/Time Consultation Requested: March 23, 2024 0900
Date/Time Consultation Performed: March 23, 2024 1230
Requesting Provider: Dr. Christa Bunn
Performing Provider: Dr. Stefany Griffin
Reason for Consultation: Fever and tick bite
Chief Complaint / Past History
Chief Complaint
Cough
History of Present Illness
68-year-old female with diabetes mellitus, asthma, hypothyroidism who has been having on and off cough and shortness of breath for the past 2 months. Chest x-ray in February was normal. She was told probably she had sinusitis. She was placed on a
course of steroids. No antibiotic. Her cough and shortness of breath became worse. No significant sputum production. She had fever and chills. She presented to the hospital March 22. She was febrile to 103. Lactic acid 2.6. White count of
17.6. Chest x-ray shows right middle and lower lobe opacities. Patient denies ill contacts. No diarrhea. No sinus congestion. Today the nurse found it take partially embedded on her right scapula. Patient reports that her dogs bring home
takes. One of the dog sleeps with her. Also recently she has been taking her grandchildren to the park. No history of Lyme.
Past History
Additional Past Medical History:
Cognitive dysfunction
Diabetes mellitus
asthma
Lung nodule
Hypothyroidism
Hypertension
HLD
fibromyalgia
Rheumatoid arthritis
Schizoaffective disorder
Anxiety/depression
Sleep apnea not on CPAP
Chronic lower extremity edema
Cholecystectomy
Bariatric surgery
Carpal tunnel release
Right knee repair
Allergy History:
celecoxib [From Celebrex] Allergy (Verified 03/22/24 08:47)
Unknown
hydrochlorothiazide Allergy (Verified 03/22/24 08:47)
Unknown
NSAIDS (Non-Steroidal Anti-Inflamma Allergy (Verified 03/22/24 08:47)
Gastric Bypass
pregabalin [From Lyrica] Allergy (Verified 03/22/24 08:47)
Unknown
promethazine Allergy (Verified 03/22/24 08:47)
Unknown
zolpidem [From Ambien] Allergy (Verified 03/22/24 08:47)
Unknown
Medications Reviewed: Yes
Current Antibiotics:
Ceftriaxone
Metronidazole
Doxycycline
Social History
Tobacco: Non-Smoker
Alcohol: None
Drug: None
Living: With Family
Family History
Family History: Not Pertinent
Review of Systems
Review of Systems
General: Fever, Chills and Change in Appetite
HEENT: Negative Stiff Neck, Sinus Problems, Headache or Pharyngitis
Cardiovascular: Dyspnea; Negative Chest Pain
Respiratory: Dyspnea and Cough
Gasteroenterology: Negative Nausea or Vomiting
Genital / Urological: Negative Dysuria or Flank Pain
Skin / Hair / Nails: Negative Rash
Neurological: Negative Headache or Dizziness
All systems: All other systems were reviewed and were negative
Vital Signs
Temp Pulse Resp BP Pulse Ox
98 F 92 18 98/63 97
03/23/24 15:30 03/23/24 15:30 03/23/24 15:30 03/23/24 15:30 03/23/24 15:30
Selected Entries
03/22/24
08:46
Temp 103.0 F H
Physical Exam
Physical Exam
Constitutional: No Acute Distress
Head: Other (No frontal or maxillary sinus tenderness)
Eyes: No Conjunctival Hemorrhage and Sclera Anicteric
Cardiovascular: Regular Rate and S1/S2
Pulmonary: Coarse (Crackles right base)
Gastrointestinal: Soft, Non Tender and Non Distended
Extremities: Edema (BLE)
Skin: Negative Rash
Neurological: AO x 3
Lab / Diagnostic Study Results
03/23/24 11:17
03/23/24 05:16
Abs Immat Gran (auto) 0.0 10^3/uL (0-0.05) 03/22/24 08:53
Absolute Neuts (auto) 8.0 10^3/uL (1.4-6.5) H 03/22/24 08:53
Absolute Lymphs (auto) 0.6 10^3/uL (1.2-3.4) L 03/22/24 08:53
Absolute Monos (auto) 0.1 10^3/uL (0.1-0.6) 03/22/24 08:53
Absolute Basos (auto) 0.0 10^3/uL (0-0.2) 03/22/24 08:53
Immature Gran % 0.2 % (0-0.5) 03/22/24 08:53
Neutrophils % 91.0 % (42.2-75.2) H 03/22/24 08:53
Lymphocytes % 7.1 % (20.5-51.1) L 03/22/24 08:53
Monocytes % 1.5 % (1.7-9.3) L 03/22/24 08:53
Eosinophils % 0.1 % (0-6) 03/22/24 08:53
Basophils % 0.1 % (0-2) 03/22/24 08:53
Lactic Acid 2.7 mmol/L (0.7-2.0) H 03/23/24 11:17
Ur Squamous Epith Cells 0-2 /LPF (Few) 03/22/24 09:16
Microbiology Results
Micro:
03/22/24 09:16 Urine Culture - Preliminary
Urine Escherichia coli
03/22/24 08:53 Blood Culture - Preliminary
Blood/Venous No Growth in 24 hours- Final report to follow
03/22/24 08:54 Blood Culture - Preliminary
Blood/Venous No Growth in 24 hours- Final report to follow
03/22/24 15:23 Legionella Urinary Antigen - Final
Urine Negative for Legionella pneumophila Serogroup 1 antigen.
A negative result does not rule out the possiblity of
Legionella infection due to other serogroups or species of
Legionella. Clinical correlation is recommended.
03/22/24 08:53 Influenza Types A & B (DEL) - Final
Nasal Swab Negative for Influenza A & B, NAAT
Negative results must be combined with clinical observations
and patient history.
Nucleic Acid Amplification test (NAAT)performed on the
[email or web address] platform.
03/22/24 CXR: Pronounced airspace consolidation is seen within the right mid and lower lung zone, consistent with pneumonia.
Assessment / Plan
# R CAP
#Sepsis: Fever, Leukocytosis
- Blood cx's neg to date
- DC metronidazole.
- Continue ceftriaxone and doxycyline.
- Trend temps and wbc.
# Tick exposure
- I examined the captured tick placed in a container. The Ixodes tick is not engorged.
- No indication to treat for Lyme.
--- NOTE | 2024-03-23 17:01 | CM ---
Avis is a 68 year old female, admitted via ED with swallowing difficulties. This has been an ongoing issue.
She lives with her daughter in a 2SH with 4 steps to enter. Pt reports being independent in all areas [employer]. No DME, VN or SNF history.
PCP: Torrie Arizmendi
Pharmacy: [facility]
D/C plan: home with no needs. Daughter will provide transport at discharge.
[2024-03-23] MEDS: LOVENOX 40 MG SC (17:09)
[2024-03-23 21:24] LABS: Glucose - Point of Care 196 mg/dl (70-99)
[2024-03-23] MEDS: SENOKOT-S 3 TABLET PO (21:42)
[2024-03-23] MEDS: PEPCID 40 MG PO (21:42)
[2024-03-23] MEDS: REMERON 45 MG PO (21:42)
[2024-03-23] MEDS: NON-FORMULARY ITEM 1 UNIT PO (21:43)
[2024-03-23] MEDS: FLEXERIL 10 MG PO (21:43)
[2024-03-23] MEDS: ARICEPT 10 MG PO (21:43)
[2024-03-24] MEDS: NORCO 5/325 2 TABLET PO ×2 (03:34→18:34)
[2024-03-24] MEDS: SYNTHROID 50 MCG PO (03:34)
[2024-03-24 03:37] VITALS: BMI 30.3
[2024-03-24] MEDS: TESSALON PERLES 200 MG PO ×3 (03:38→22:00)
[2024-03-24 03:56] VITALS: BP 130/70
[2024-03-24 07:35] VITALS: BP 141/67
[2024-03-24 07:38] LABS: Glucose - Point of Care 203 mg/dl (70-99)
[2024-03-24] MEDS: SYMBICORT 160/4.5 MCG INHALER 2 PUFF INH ×2 (07:53→20:09)
[2024-03-24] MEDS: XOPENEX 1.25 MG INHALANT SOLUTION INH ×3 (07:53→20:09)
[2024-03-24 08:37] LABS: Hematocrit 30.1 % (37.0-47.0); Hemoglobin 10.1 g/dL (12.0-16.0); Mean Corp Hgb Conc. 33.6 g/dL (33.0-37.0); Mean Corpuscular Hgb 29.8 pg (27.0-31.0); Mean Corpuscular Volume 88.8 fL (81.0-99.0); Mean Platelet Volume 9.6 fL (7.4-10.4); Platelet Count 164 10^3/uL (130-400); Red Blood Cell Count 3.39 10^6/uL (4.20-5.40); Red Cell Dist. Width 13.7 % (11.5-14.5); White Blood Cell Count 9.7 10^3/uL (4.8-10.8)
[2024-03-24] MEDS: MUCINEX 600 MG PO ×2 (09:14→20:08)
[2024-03-24] MEDS: PROTONIX 40 MG PO ×2 (09:14→20:09)
[2024-03-24] MEDS: DIOVAN 20 MG PO (09:14)
[2024-03-24] MEDS: NAMENDA 10 MG PO ×2 (09:14→20:10)
[2024-03-24] MEDS: LIPITOR 80 MG PO (09:14)
[2024-03-24] MEDS: ZANAFLEX 2 MG PO ×2 (09:14→20:10)
[2024-03-24] MEDS: VIBRAMYCIN 100 MG PO ×2 (09:14→20:08)
[2024-03-24] MEDS: PLAVIX 75 MG PO (09:15)
[2024-03-24] MEDS: STERILE WATER FOR INJECTION 10 ML IV (09:15)
[2024-03-24] MEDS: OSCAL 500 + D 500 MG PO (09:15)
[2024-03-24] MEDS: COGENTIN 2 MG PO (09:16)
[2024-03-24] MEDS: ROCEPHIN 1000 MG IV (09:16)
[2024-03-24] MEDS: KCL 20 MEQ PO ×2 (09:16→20:10)
[2024-03-24] MEDS: ANTIVERT 12.5 MG PO ×3 (09:16→22:01)
--- NOTE | 2024-03-24 09:22 | W.PN.PUL.V3 ---
Today's Communication / Plan
-
Wean oxygen
Continue antibiotics
Mucus clearing devices
Increase activity
Assessment
-
68-year-old female with underlying asthma, pulmonary nodule, hypertension, hyperlipidemia, fibromyalgia, depression and anxiety presents with increasing shortness of breath, chest congestion unresponsive to outpatient therapy and noted to have a
right lower lobe pneumonia-pulmonary consulted for pneumonia 03/23/2024.
Right lower lobe pneumonia-suspect aspiration
Aspiration risk
Mild lactic acidosis
Asthma-mild intermittent with no exacerbation
Chronic cough
Leukocytosis
Vmgzyj-okvbricgpk-tblkveqikf 10.2
Mild hyperglycemia
UTI-E. coli
Conditions present prior to admission:
Asthma.
Pulmonary nodule.
Recurrent pneumonia-aspiration suspected
EVELINA resolved with weight loss.
Obesity/bariatric surgery.
Hypertension.
Hyperlipidemia.
Diabetes.
Hypothyroid.
History CVA.
Anxiety/depression/schizoaffective disorder.
Cognitive dysfunction.
GERD.
Vertigo.
Diverticulosis.
Cholecystectomy. Right knee repair. Tonsillectomy. Carpal tunnel 11/2022. Cataract. Glaucoma. Hysterectomy.
Plan
Patient followed closely by Dr. Szymnaski.
Patient has underlying asthma maintained on Symbicort and Xopenex as needed, he also treats for postnasal drip with Aurea, Astelin and Flonase-he ordered CT sinuses
Patient has frequent recurrent pneumonias and waxing and waning nodules suspected related to aspiration with underlying severe reflux-ongoing problem after bariatric surgery
Radiographs, CT of the chest, CT of the sinuses, lower extremity ultrasound and pulmonary functions were reviewed and summarized below
Continue supplemental oxygen as needed-patient does not have home oxygen
Will need to assess discharge supplemental oxygen needs prior to discharge
Incentive spirometry
Aspiration precautions
Speech therapy/video swallow
Mucolytic's
Antitussives
Nebulizers and inhalers as needed-on Symbicort and Xopenex nebulizers
Observe off steroids for now
Cultures reviewed
Blood cultures negative
Influenza negative
Urine culture-positive E. coli
Broad-spectrum antibiotics-on ceftriaxone, doxycycline and metronidazole
Follow radiographically
Monitoring leukocytosis
Follow hemoglobin-currently 10.1
Transfuse if needed
Monitor blood sugar
Insulin supplementation as needed
DVT prophylaxis-on Lovenox
GI prophylaxis-on pantoprazole
Nutrition with aspiration precautions
Early mobilization
Patient was last seen by Dr. Szymanski 03/07/2024 and has a follow-up appointment 04/05/2024 at 4:15 PM
Diagnostic data:
CXR 10/29/22: New areas of linear interstitial airspace disease in the right middle lobe and basilar portion of the left lower lobe suggesting interstitial pneumonia/bronchiolitis
Chest x-ray 03/02/2024-��NAD
Chest x-ray 03/22/[id number]-tadim pneumonia, no large parapneumonic effusion is appreciated
CT scan08/09/2023: Reviewed,Jermaine Stanley 08/24/2023 08:54:12 AM >��1. Stable left lisa-fissural nodule, likely benign.2.� Interval resolution of previously seen left upper lobe groundglass densities.��������-��������CXR 05/16/2023: Right
upper lobe pneumonia appears unchanged. Linear foci in the left lower lobe may be subsegmental atelectasis.��������-��������
CT chest 04/12/2023: Previous opacity/pneumonia in the right lower lobe has resolved. Mild scarring versus atelectasis in the mid to lower lung zones. A perifissural nodule in the left mid to lower lung zone has remained stable. Multiple subtle
groundglass nodular opacities have developed in the left upper lobe measuring up to 8.4 mm.��������-
VSE 01/12/2023: Upper laryngeal penetration. No aspiration.��������-��������
CT chest 01/10/2023:showed no evidence for central pulmonary embolism. Patchy right lower lobe opacification, most likely pneumonia. Prominence of pulmonary interstitium some vague groundglass opacities bilaterally, sparing the Overload. Mild chronic
fiber changes.��������-��������
CT chest01/10/2023: showed no evidence for acute pulmonary embolism.Right lower lobe airspace disease, likely pneumonia, new compared to November 2022. Mild bilateral groundglass opacities.Stable left lower lobe pulmonary nodule.��������-��������
CT chest 2022:Reviewed, showed 8 mm pleural-based pulmonary nodule slightly increased compared to prior examinations.����������������-��������
��������
CT chest 05/08/2022: Solid pleural-based 8 mm left lower lobe pulmonary nodule. Appearance of slight increase in size. However this can be due to the location and the slice image. Moderate right upper lobe and right lower lobe atelectasis versus
scarring. Mild lingular and right middle lobe atelectasis versus scarring. Gallbladder has been removed.
CT sinus 03/14/2024-unremarkable CT of the sinuses
Lower extremity ultrasound 03/22/2024-no evidence for DVT
PFT 08/24/2023-FEV1 2.16-86%, FVC 2.78-84%, TLC 76%, RV 55%, DLCO 72%, DLCO/VA 89%
Subjective Data
-
Date of Service:
Date of Service: March 24, 2024
Chief Complaint: Pulmonary Follow Up and Dyspnea Follow Up
Subjective:
Overall feels a little bit better, no complaints of increased shortness of breath, no chest pain, productive cough, does not have oxygen at home, no abdominal pain, eating breakfast
Review of Systems
General: Other (Per HPI)
Objective Data
Data Reviewed
Vital Signs / I&O:
Vital Signs
Temp Pulse Resp BP Pulse Ox
98.8 F 79 16 141/67 96
03/24/24 07:35 03/24/24 08:24 03/24/24 08:24 03/24/24 07:35 03/24/24 08:24
Intake and Output
03/23/24 03/24/24 03/25/24
06:59 06:59 06:59
Intake Total 440 / 440 1400 / 1400
Output Total 900 / 900 600 / 600
Balance -460 / -460 800 / 800
SaO2: 96
Nasal Cannula flow liters per minute: 2
Physical Exam
General: Respiratory Distress (n) and Comfortable
HEENT: Normocephalic, Anicteric and Moist Mucous Membranes
Cardiovascular: Regular Rhythm and Murmur
Respiratory: Crackles (Few basilar), Rhonchi (Expiratory), Non-Labored Respirations, Accessory Resp Muscle Use (n) and Stridor (n)
GI: Soft, Non Distended and Non Tender
Neurology: Awake, Alert and No Motor Deficits
Skin: Warm, Good Color, Cyanosis (n), Jaundice (n) and Rash (n)
Labs/Micro/Reports
Lab Data
03/24/24 08:05
Microbiology
03/22/24 08:53 Blood/Venous Blood Culture - Preliminary
No Growth in 48 hours- Final report to follow
03/22/24 08:54 Blood/Venous Blood Culture - Preliminary
No Growth in 48 hours- Final report to follow
03/22/24 09:16 Urine Urine Culture - Final
Escherichia coli
03/22/24 15:23 Urine Legionella Urinary Antigen - Final
Negative for Legionella pneumophila Serogroup 1 antigen.
A negative result does not rule out the possiblity of
Legionella infection due to other serogroups or species of
Legionella. Clinical correlation is recommended.
03/22/24 08:53 Nasal Swab Influenza Types A & B (DEL) - Final
Negative for Influenza A & B, NAAT
Negative results must be combined with clinical observations
and patient history.
Nucleic Acid Amplification test (NAAT)performed on the
[employer] platform.
[2024-03-24 09:23] LABS: Blood Urea Nitrogen 10 mg/dl (7-17); Calcium 8.7 mg/dl (8.4-10.2); Carbon Dioxide 27 mmol/L (22-30); Chloride 105 mmol/L (98-107); Estimated Creatinine Clearance 105 ml/min; Glucose 147 mg/dl (70-99); Sodium 137 mmol/L (135-145); eGFR > 60.00
--- NOTE | 2024-03-24 09:55 | W.PN.ID1 ---
Date of Service
Date of Service: March 24, 2024
Today's Communication
At time of discharge, transition to cefuroxime 500mg po bid and doxycycline 100mg po bid through 03/28/24.
Assessment / Plan
# R CAP
# s/p Sepsis
- Fever, Leukocytosis resolved
- Blood cx's neg
- Continue ceftriaxone/doxycycline (d3)
- At time of discharge, transition to cefuroxime 500mg po bid and doxycycline 100mg po bid through 03/28/24.
# Tick exposure
- The captured Ixodes tick was not engorged.
- No indication to treat for Lyme.
# Additional Past Medical History:
Cognitive dysfunction
Diabetes mellitus
asthma
Lung nodule
Hypothyroidism
Hypertension
HLD
fibromyalgia
Rheumatoid arthritis
Schizoaffective disorder
Anxiety/depression
Sleep apnea not on CPAP
Chronic lower extremity edema
Cholecystectomy
Bariatric surgery
Carpal tunnel release
Right knee repair
Chief Complaint
-: Pneumonia
Subjective / Review of Systems
Cough and SOB much improved.
Vital Signs / Physical Exam
Vital Signs
Vital Signs
Temp Pulse Resp BP Pulse Ox
98.8 F 90 16 141/67 96
03/24/24 07:35 03/24/24 09:14 03/24/24 08:24 03/24/24 09:14 03/24/24 09:22
Physical Exam
Constitutional: No Acute Distress
Cardiovascular: Regular Rate and S1/S2
Pulmonary: Coarse (mild crackles right base)
Gastrointestinal: Soft and Non Tender
Objective Data
Lab Data
Lab Results
03/24/24 08:05
03/24/24 08:05
Estimated Creat Clear 105 ml/min 03/24/24 08:05
Lactic Acid 2.7 mmol/L (0.7-2.0) H 03/23/24 11:17
Total Bilirubin 1.4 mg/dl (0.2-1.3) H 03/22/24 08:53
AST 29 U/L (14-36) 03/22/24 08:53
ALT 22 U/L (0-35) 03/22/24 08:53
Alkaline Phosphatase 144 U/L (38-126) H 03/22/24 08:53
Most recent labs reviewed.
Micro Results:
03/22/24 08:53 Blood Culture - Preliminary
Blood/Venous No Growth in 48 hours- Final report to follow
03/22/24 08:54 Blood Culture - Preliminary
Blood/Venous No Growth in 48 hours- Final report to follow
03/22/24 09:16 Urine Culture - Final
Urine Escherichia coli
03/22/24 15:23 Legionella Urinary Antigen - Final
Urine Negative for Legionella pneumophila Serogroup 1 antigen.
A negative result does not rule out the possiblity of
Legionella infection due to other serogroups or species of
Legionella. Clinical correlation is recommended.
03/22/24 08:53 Influenza Types A & B (DEL) - Final
Nasal Swab Negative for Influenza A & B, NAAT
Negative results must be combined with clinical observations
and patient history.
Nucleic Acid Amplification test (NAAT)performed on the
[employer] platform.
03/22/24 CXR: Pronounced airspace consolidation is seen within the right mid and lower lung zone, consistent with pneumonia.
[2024-03-24 11:13] VITALS: BP 123/60
[2024-03-24 11:47] LABS: Glucose - Point of Care 128 mg/dl (70-99)
--- NOTE | 2024-03-24 12:29 | PN.CDI ---
CDI
- -
CDI:
Physician Documentation Request
Admit Date: 03/22/24 13:25
Dear Doctor Oni,
Patient to ED from home via EMS for evaluation of shortness of breath and cough.
Patient found to have pneumonia.
ED discharge problems include 'Pneumonia, Sepsis,.....' Sepsis not in subsequent documentation
6/5 WBC 8.8
Temp on presentation 103.0
Heart rate 106 and respiratory rate 34
Lactic acid 2.3 (max 2.7)
Please clarify which of the following most accurately describes the status of the patient's infection:
Sepsis
- Systemic manifestations of infection, with 2 or more SIRS criteria which include:
- Fever >100.4 degrees F or hypothermia < 96.8 degrees F
- Leukocytosis - WBC > 12,000 or leukopenia - WBC < 4,000 or > 10% bands
- Tachycardia > 90 beats per minute
- Tachypnea - RR > 20 breaths per minute or PaCO2 , 32mmHg
Source: Merck Manual 2013
Severe Sepsis
- Sepsis with associated acute organ dysfunction, such as renal or respiratory failure
Sepsis ruled out
Other
Use of terms such as suspected, likely, concern for, or probable (associated with a specific diagnosis that is being evaluated, monitored, or treated as if it exists) are acceptable and can be coded in the inpatient setting, when documented at the
time of discharge.
Thank you,
Zuri Wilkinson RN BSN
CDI Specialist
tiger text
Please use your independent medical judgment in providing your response.
[2024-03-24] MEDS: COGENTIN 1 MG PO ×2 (13:07→20:10)
[2024-03-24] MEDS: LYRICA 25 MG PO (13:12)
[2024-03-24 15:20] VITALS: BP 121/57
--- NOTE | 2024-03-24 15:36 | W.PN.HOSP.TC ---
Today's Communication/Plan
-
Wean oxygen
Continue antibiotic
Encourage ambulation
Possible discharge tomorrow.
Assessment / Plan
Assessment / Plan
68 y/o female with fever and cough
CVS: S1-S2 normal
Chest: rales
Abdomen: Soft, NT / Bowel sounds present
Extremities: No edema
# Right lower lobe pneumonia
Sepsis POA due to above
Improving
Acute hypoxic respiratory insufficiency secondary to above
Treat with ceftriaxone, Flagyl and doxycycline
Speech evaluation noted -VSE today- Regular diet
History of video swallow in December 2022 which showed mild pharyngeal dysphagia
COVID-19 negative
Wean oxygen as tolerated
Cefuroxime 500mg po bid and doxycycline 100mg po bid through 03/28/24
#Tick found on the body-Exposure.
No need for treatment per ID as tick is flat and not engorged.
# Mild lactic acidosis-normalised
# Asthma NOS, no exacerbation-likely secondary to above
Chronic cough, Flonase, Xopenex
On Symbicort
#Anemia-Iron studies
# Hypertension-valsartan
# Hyperlipidemia-statin
# Diabetes-diet controlled. Accu-Cheks BID. Check A1C
# Hypothyroidism-Synthroid 50 mcg daily
# Pulmonary nodule-Follows with Pulm
# History of CVA-Plavix, statin
# Anxiety depression/(On the chart but pt denies schizoaffective disorder)-continue Xanax, benztropine, Remeron
# Cognitive dysfunction-on donepezil, memantine
# Sleep apnea not on CPAP reported resolved with weight loss
# Arthritis/fibromyalgia/rheumatoid arthritis/osteoarthritis/chronic pain-opiate dependent, Lyrica, Zanaflex
Unclear if HLA-B27 positive
# GERD-continue PPI, Carafate
# Chronic lower extremity edema-on Lasix Wednesday and Wednesday
# Chronic vertigo-on meclizine
# Microscopic Hematuria-repeat urinalysis outpatient
# History of bariatric surgery
# Diverticulosis
# DVT prophylaxis-Lovenox
# CODE STATUS-Full
D/W Resp at bed side
D/W RN
Spoke to patient's brother who is decimated spokesperson he lives with the patient also.
He is aware that patient is getting better and that she may be discharged tomorrow
Anticipated Discharge: Within 24 hours
Subjective/Interval History
-
Date of Service: March 24, 2024
Objective Data
-
Labs:
Laboratory Results
03/24/24
08:05
WBC 9.7
Hgb 10.1 L
Hct 30.1 L
Plt Count 164
Sodium 137
Potassium 4.0
Chloride 105
Carbon Dioxide 27
BUN 10
Creatinine 0.5 L
Glucose 147 H
Calcium 8.7
Vital Signs:
Vital Signs
Temp Pulse Resp BP Pulse Ox
98.2 F 78 16 123/60 96
03/24/24 11:13 03/24/24 14:10 03/24/24 14:10 03/24/24 11:13 03/24/24 14:10
I&O
03/23/24 03/24/24 03/25/24
06:59 06:59 06:59
Intake Total 440 / 440 1400 / 1400
Output Total 900 / 900 600 / 600
Balance -460 / -460 800 / 800
[2024-03-24 15:51] LABS: Iron 23 ug/dl (37-170)
[2024-03-24 16:00] LABS: Percent Saturation 8 % (20-50); Total Iron Binding Capacity 267 ug/dl (265-497)
[2024-03-24] MEDS: LOVENOX 40 MG SC (16:35)
[2024-03-24 16:46] LABS: Glucose - Point of Care 123 mg/dl (70-99)
[2024-03-24 16:58] LABS: Vitamin B12 805 pg/ml (239-931)
[2024-03-24 21:11] LABS: Glucose - Point of Care 268 mg/dl (70-99)
[2024-03-24] MEDS: NON-FORMULARY ITEM 1 UNIT PO (22:00)
[2024-03-24] MEDS: EMLA CREAM 1 GRAM TOPICAL (22:00)
[2024-03-24] MEDS: FLEXERIL 10 MG PO (22:01)
[2024-03-24] MEDS: SENOKOT-S 3 TABLET PO (22:01)
[2024-03-24] MEDS: REMERON 45 MG PO (22:01)
[2024-03-24] MEDS: ARICEPT 10 MG PO (22:01)
[2024-03-24] MEDS: PEPCID 40 MG PO (22:01)
[2024-03-24] MEDS: XANAX 0.5 MG PO (22:01)
[2024-03-24 23:41] VITALS: BP 108/55
[2024-03-25] MEDS: NORCO 5/325 2 TABLET PO ×2 (00:36→07:46)
[2024-03-25] MEDS: SYNTHROID 50 MCG PO (04:52)
[2024-03-25 04:54] VITALS: BMI 30.8
[2024-03-25] MEDS: XOPENEX 1.25 MG INHALANT SOLUTION INH ×2 (06:24→11:59)
[2024-03-25] MEDS: SYMBICORT 160/4.5 MCG INHALER 2 PUFF INH (06:24)
[2024-03-25 07:46] VITALS: BP 120/81
[2024-03-25] MEDS: VITAMIN B-12 1000 MCG PO (07:47)
[2024-03-25] MEDS: LIPITOR 80 MG PO (07:47)
[2024-03-25] MEDS: OSCAL 500 + D 500 MG PO (07:47)
[2024-03-25] MEDS: DIOVAN 20 MG PO (07:47)
[2024-03-25] MEDS: KCL 20 MEQ PO (07:47)
[2024-03-25] MEDS: NAMENDA 10 MG PO (07:47)
[2024-03-25] MEDS: COGENTIN 2 MG PO (07:47)
[2024-03-25] MEDS: ANTIVERT 12.5 MG PO (07:47)
[2024-03-25] MEDS: STERILE WATER FOR INJECTION 10 ML IV (07:47)
[2024-03-25] MEDS: MUCINEX 600 MG PO (07:47)
[2024-03-25] MEDS: VIBRAMYCIN 100 MG PO (07:47)
[2024-03-25] MEDS: ZANAFLEX 2 MG PO (07:47)
[2024-03-25] MEDS: PLAVIX 75 MG PO (07:47)
[2024-03-25] MEDS: PROTONIX 40 MG PO (07:47)
[2024-03-25] MEDS: ROCEPHIN 1000 MG IV (07:48)
[2024-03-25] MEDS: LASIX 40 MG PO (07:52)
--- NOTE | 2024-03-25 10:03 | W.PN.PUL3 ---
Today's Communication / Plan
-
Ambulatory pulse oximetry performed on 03/24 showed she does not need home oxygen
ABX as per ID
Mucus clearing devices
Increase activity
Patient being prepared for discharge today. Pulmonary service will now sign off. We will arrange for outpatient follow up. Please reconsult if there are any additional questions/concerns, or if patient's respiratory status deteriorates.
Assessment
-
68-year-old female with underlying asthma, pulmonary nodule, hypertension, hyperlipidemia, fibromyalgia, depression and anxiety presents with increasing shortness of breath, chest congestion unresponsive to outpatient therapy and noted to have a
right lower lobe pneumonia-pulmonary consulted for pneumonia 03/23/2024.
Impression:
Right lower lobe pneumonia-suspect aspiration
Aspiration risk
Mild lactic acidosis � resolved
Asthma-mild intermittent with no exacerbation
Chronic cough
Leukocytosis � resolved
Yyzrff-xxuprqwuna-gqvxsaeqqu 10.2
Mild hyperglycemia
UTI-E. coli
Conditions present prior to admission:
Asthma.
Pulmonary nodule.
Recurrent pneumonia-aspiration suspected
EVELINA resolved with weight loss.
Obesity/bariatric surgery.
Hypertension.
Hyperlipidemia.
Diabetes.
Hypothyroid.
History CVA.
Anxiety/depression/schizoaffective disorder.
Cognitive dysfunction.
GERD.
Vertigo.
Diverticulosis.
Cholecystectomy. Right knee repair. Tonsillectomy. Carpal tunnel 11/2022. Cataract. Glaucoma. Hysterectomy.
Plan
Patient followed closely by Dr. Szymanski.
Patient has underlying asthma maintained on Symbicort and Xopenex as needed, he also treats for postnasal drip with Aurea, Astelin and Flonase-he ordered CT sinuses which was done on 03/14/2024 which was unremarkable
Patient has frequent recurrent pneumonias and waxing and waning nodules suspected related to aspiration with underlying severe reflux-ongoing problem after bariatric surgery
Radiographs, CT of the chest, CT of the sinuses, lower extremity ultrasound and pulmonary functions were reviewed and summarized below
Continue supplemental oxygen as needed-patient does not have home oxygen
Assess discharge supplemental oxygen needs prior to discharge � this was done on 03/24/2024 and she desaturated with ambulation to 93% after walking 230 feet. She does not qualify for home oxygen
Incentive spirometry
Aspiration precautions
Speech therapy/video swallow � performed on 03/23/2024 showing mild oral/pharyngeal stage swallowing and concern for possible esophageal dysphagia, with no aspiration seen. Recommended regular diet with thin liquids
Mucolytics
Antitussives
Nebulizers and inhalers as needed-on Symbicort and Xopenex nebulizers
Observe off steroids for now
Cultures reviewed
Blood cultures negative
Influenza negative
Urine culture-positive E. coli
Broad-spectrum antibiotics-on ceftriaxone, doxycycline and metronidazole
Follow radiographically
Monitoring leukocytosis
Follow hemoglobin-currently 10.1 as of 03/24
Transfuse if needed
Monitor blood sugar with goal >100 and <180
Insulin supplementation as needed
DVT prophylaxis-on Lovenox
GI prophylaxis-on pantoprazole
Nutrition with aspiration precautions
Early mobilization
Patient was last seen by Dr. Szymanski 03/07/2024 and has a follow-up appointment 04/05/2024 at 4:15 PM
Patient being prepared for discharge today. Pulmonary service will now sign off. Thank you for allowing us to be involved in the care of this patient. Please reconsult if there are any additional questions/concerns, or if patient's respiratory
status deteriorates.
Total time spent today was 35 minutes for this encounter. Time includes reviewing laboratory test/imaging results, reviewing pertinent medical records, obtaining and reviewing medical history, performing an appropriate exam, ordering medications,
tests and procedures. Time also includes documentation of this encounter, coordinating patient care and communicating with other healthcare professionals. Total time does not include separately billed tests performed on this date of service.
Diagnostic data:
CXR 10/29/22: New areas of linear interstitial airspace disease in the right middle lobe and basilar portion of the left lower lobe suggesting interstitial pneumonia/bronchiolitis
Chest x-ray 03/02/2024-��NAD
Chest x-ray 03/22/[id number]-risat pneumonia, no large parapneumonic effusion is appreciated
CT scan08/09/2023: Reviewed,Jermaine Stanley 08/24/2023 08:54:12 AM >��1. Stable left lisa-fissural nodule, likely benign.2.� Interval resolution of previously seen left upper lobe groundglass densities.��������-��������CXR 05/16/2023: Right
upper lobe pneumonia appears unchanged. Linear foci in the left lower lobe may be subsegmental atelectasis.��������-��������
CT chest 04/12/2023: Previous opacity/pneumonia in the right lower lobe has resolved. Mild scarring versus atelectasis in the mid to lower lung zones. A perifissural nodule in the left mid to lower lung zone has remained stable. Multiple subtle
groundglass nodular opacities have developed in the left upper lobe measuring up to 8.4 mm.��������-
VSE 01/12/2023: Upper laryngeal penetration. No aspiration.��������-��������
CT chest 01/10/2023:showed no evidence for central pulmonary embolism. Patchy right lower lobe opacification, most likely pneumonia. Prominence of pulmonary interstitium some vague groundglass opacities bilaterally, sparing the Overload. Mild chronic
fiber changes.��������-��������
CT chest01/10/2023: showed no evidence for acute pulmonary embolism.Right lower lobe airspace disease, likely pneumonia, new compared to November 2022. Mild bilateral groundglass opacities.Stable left lower lobe pulmonary nodule.��������-��������
CT chest 2022:Reviewed, showed 8 mm pleural-based pulmonary nodule slightly increased compared to prior examinations.����������������-��������
��������
CT chest 05/08/2022: Solid pleural-based 8 mm left lower lobe pulmonary nodule. Appearance of slight increase in size. However this can be due to the location and the slice image. Moderate right upper lobe and right lower lobe atelectasis versus
scarring. Mild lingular and right middle lobe atelectasis versus scarring. Gallbladder has been removed.
CT sinus 03/14/2024-unremarkable CT of the sinuses
Lower extremity ultrasound 03/22/2024-no evidence for DVT
PFT 08/24/2023-FEV1 2.16-86%, FVC 2.78-84%, TLC 76%, RV 55%, DLCO 72%, DLCO/VA 89%
Subjective Data
-
Date of Service:
Date of Service: March 25, 2024
Chief Complaint: Pulmonary Follow Up and Dyspnea Follow Up
Subjective:
Patient was seen and evaluated today at bedside. On room air saturating 95%. No acute events reported from overnight. No chest pain, headache, abdominal pain, fevers or chills.
Review of Systems
General: Other (12 point ROS performed and is negative unless mentioned above.)
Objective Data
Data Reviewed
Vital Signs / I&O / Oxygen:
Vital Signs
Temp Pulse Resp BP Pulse Ox
99.8 F 89 16 120/81 94
03/25/24 07:46 03/25/24 07:46 03/25/24 07:46 03/25/24 07:46 03/25/24 08:00
Intake and Output
03/24/24 03/25/24 03/26/24
06:59 06:59 06:59
Intake Total 1400 / 1400 1080 / 1080
Output Total 600 / 600 480 / 480
Balance 800 / 800 600 / 600
SaO2 94
Nasal Cannula flow liters per 2
minute
Physical Exam
General: Respiratory Distress (n) and Comfortable
HEENT: Normocephalic, Anicteric and Moist Mucous Membranes
Cardiovascular: S1-S2
Respiratory: Wheeze (n), Crackles (Few basilar), Rhonchi (Expiratory), Non-Labored Respirations, Accessory Resp Muscle Use (n) and Stridor (n)
GI: Soft, Non Distended and Non Tender
Neurology: Awake, Alert and Tremors (n)
Skin: Warm, Dry, Cyanosis (n), Jaundice (n) and Rash (n)
Labs/Micro/Reports
Lab Data
03/24/24 08:05
03/24/24 08:05
Microbiology
03/22/24 08:53 Blood/Venous Blood Culture - Preliminary
No Growth in 72 hours- Final report to follow
03/22/24 08:54 Blood/Venous Blood Culture - Preliminary
No Growth in 72 hours- Final report to follow
03/22/24 09:16 Urine Urine Culture - Final
Escherichia coli
03/22/24 15:23 Urine Legionella Urinary Antigen - Final
Negative for Legionella pneumophila Serogroup 1 antigen.
A negative result does not rule out the possiblity of
Legionella infection due to other serogroups or species of
Legionella. Clinical correlation is recommended.
03/22/24 08:53 Nasal Swab Influenza Types A & B (DEL) - Final
Negative for Influenza A & B, NAAT
Negative results must be combined with clinical observations
and patient history.
Nucleic Acid Amplification test (NAAT)performed on the
[employer] platform.
--- NOTE | 2024-03-25 11:24 | CM ---
Patient seen bedside. CM offered VN to patient, patient declining at this time. CM reviewed IMM, signed, placed in chart. Patient reports she does have transportation home. CM will continue to follow for all discharge planning needs.
Plan; home no needs, family to provide transportation.
[2024-03-25] MEDS: EMLA CREAM 1 GRAM TOPICAL (11:27)
[2024-03-25] MEDS: COGENTIN 1 MG PO (11:30)
[2024-03-25] MEDS: LYRICA 25 MG PO (11:30)
--- NOTE | 2024-03-25 12:39 | W.PN.ID1 ---
Date of Service
Date of Service: March 25, 2024
Today's Communication
At time of discharge, transition to cefuroxime 500mg po bid and doxycycline 100mg po bid through 03/28/24.
Assessment / Plan
# R CAP
# s/p Sepsis
- Fever, Leukocytosis resolved
- Blood cx's neg
- Continue ceftriaxone/doxycycline (d4)
- At time of discharge, transition to cefuroxime 500mg po bid and doxycycline 100mg po bid through 03/28/24.
# Tick exposure
- The captured Ixodes tick was not engorged.
- No indication to treat for Lyme.
# Additional Past Medical History:
Cognitive dysfunction
Diabetes mellitus
asthma
Lung nodule
Hypothyroidism
Hypertension
HLD
fibromyalgia
Rheumatoid arthritis
Schizoaffective disorder
Anxiety/depression
Sleep apnea not on CPAP
Chronic lower extremity edema
Cholecystectomy
Bariatric surgery
Carpal tunnel release
Right knee repair
Chief Complaint
-: Pneumonia
Subjective / Review of Systems
Feels well.Off oxygen.
Vital Signs / Physical Exam
Vital Signs
Vital Signs
Temp Pulse Resp BP Pulse Ox
99.8 F 79 16 120/81 95
03/25/24 07:46 03/25/24 12:01 03/25/24 12:01 03/25/24 07:46 03/25/24 12:01
Physical Exam
Constitutional: No Acute Distress and Comfortable
Pulmonary: Clear and Other
Neurological: AO x 3
Objective Data
Lab Data
Lab Results
03/24/24 08:05
03/24/24 08:05
Estimated Creat Clear 105 ml/min 03/24/24 08:05
Lactic Acid 1.0 mmol/L (0.7-2.0) 03/24/24 10:49
Total Bilirubin 1.4 mg/dl (0.2-1.3) H 03/22/24 08:53
AST 29 U/L (14-36) 03/22/24 08:53
ALT 22 U/L (0-35) 03/22/24 08:53
Alkaline Phosphatase 144 U/L (38-126) H 03/22/24 08:53
Most recent labs reviewed.
Micro Results:
03/22/24 08:53 Blood Culture - Preliminary
Blood/Venous No Growth in 72 hours- Final report to follow
03/22/24 08:54 Blood Culture - Preliminary
Blood/Venous No Growth in 72 hours- Final report to follow
03/22/24 09:16 Urine Culture - Final
Urine Escherichia coli
03/22/24 15:23 Legionella Urinary Antigen - Final
Urine Negative for Legionella pneumophila Serogroup 1 antigen.
A negative result does not rule out the possiblity of
Legionella infection due to other serogroups or species of
Legionella. Clinical correlation is recommended.
03/22/24 08:53 Influenza Types A & B (DEL) - Final
Nasal Swab Negative for Influenza A & B, NAAT
Negative results must be combined with clinical observations
and patient history.
Nucleic Acid Amplification test (NAAT)performed on the
[employer] platform.
03/22/24 CXR: Pronounced airspace consolidation is seen within the right mid and lower lung zone, consistent with pneumonia.
Care Review
Plan reviewed with: Physician (Dr. Bunn)
[2024-03-25] MEDS: TESSALON PERLES 200 MG PO (12:57)
--- NOTE | 2024-03-25 14:02 | W.PN.HOSP.TC ---
Today's Communication/Plan
-
discharge after iron
Assessment / Plan
Assessment / Plan
68 y/o female with fever and cough
CVS: S1-S2 normal
Chest: rales
Abdomen: Soft, NT / Bowel sounds present
Extremities: No edema
# Right lower lobe pneumonia
Sepsis POA due to above
Acute hypoxic respiratory insufficiency secondary to above -Off O2
Treat with ceftriaxone, Flagyl and doxycycline
Speech evaluation noted -VSE today- Regular diet
History of video swallow in December 2022 which showed mild pharyngeal dysphagia
COVID-19 negative
Cefuroxime 500mg po bid and doxycycline 100mg po bid through 03/28/24
#Tick found on the body-Exposure.
No need for treatment per ID as tick is flat and not engorged.
# Mild lactic acidosis-normalized
# Asthma NOS, no exacerbation-likely secondary to above
Chronic cough, Flonase, Xopenex
On Symbicort
#Anemia-Iron studies indicate JOEL
Will give one dose of IV iron and then PO for discharge
# Hypertension-valsartan
# Hyperlipidemia-statin
# Diabetes-diet controlled. Check A1C low
Sugars slightly elevated from stress/illness.
Follow ADA diet at home
# Hypothyroidism-Synthroid 50 mcg daily
# Pulmonary nodule-Follows with Pulm
# History of CVA-Plavix, statin
# Anxiety depression/(On the chart but pt denies schizoaffective disorder)-continue Xanax, benztropine, Remeron
# Cognitive dysfunction-on donepezil, memantine
# Sleep apnea not on CPAP reported resolved with weight loss
# Arthritis/fibromyalgia/rheumatoid arthritis/osteoarthritis/chronic pain-opiate dependent, Lyrica, Zanaflex
Unclear if HLA-B27 positive
# GERD-continue PPI, Carafate
# Chronic lower extremity edema-on Lasix Wednesday and Wednesday
# Chronic vertigo-on meclizine
# Microscopic Hematuria-repeat urinalysis outpatient
# History of bariatric surgery
# Diverticulosis
# DVT prophylaxis-Lovenox
# CODE STATUS-Full
D/W RN
03/24/24- Spoke to patient's brother who is designated spokesperson he lives with the patient also.
D/W ID
Discharge time 36 min
Anticipated Discharge: Today
Subjective/Interval History
-
Date of Service: March 25, 2024
Objective Data
-
Vital Signs:
Vital Signs
Temp Pulse Resp BP Pulse Ox
99.8 F 79 16 120/81 95
03/25/24 07:46 03/25/24 12:01 03/25/24 12:01 03/25/24 07:46 03/25/24 12:01
I&O
03/24/24 03/25/24 03/26/24
06:59 06:59 06:59
Intake Total 1400 / 1400 1080 / 1080
Output Total 600 / 600 480 / 480
Balance 800 / 800 600 / 600
--- NOTE | 2024-03-25 14:08 | W.DS.TRANS ---
Addendum entered and electronically signed by Christa Bunn MD 03/25/24 15:15:
Dictation- [id number]
Original Note:
DC Summary - Business Risk Analyst
-
Discharge Instructions:
Discharge Diagnosis/Procedures Right lower lobe pneumonia, asthma, anemia,
hypertension, high cholesterol, diet-controlled
diabetes, hypothyroidism, history of CVA,
anxiety and depression, cognitive dysfunction,
GERD, chronic vertigo
Diet Diabetic, Carb Controlled
Activity As tolerated
Driving Restrictions As prior to admission
Blood Work bmp 1 week
Others Tests Repeat urinalysis to rule out blood
When you see your primary physician. Chest x-
ray in 4 to 6 weeks
Other Services VN
Instructions:
Stand-Alone Forms:
Changes to Home Medications: Yes
Discharge Medications:
DC Medications w/original date entered in [facility]
famotidine 40 mg tablet 40 mg PO HS Gastrointestinal Issue 05/19/15
atorvastatin 80 mg tablet 80 mg PO DAILY High Cholesterol 01/10/23
benzonatate 200 mg capsule 200 mg PO TIDPRN PRN cough 01/10/23
clopidogrel 75 mg tablet 75 mg PO DAILY Blood Clot Prevention/Tx 01/10/23
donepezil 10 mg tablet 10 mg PO HS Mental Health/Anxiety 01/10/23
levalbuterol tartrate 45 mcg/actuation aerosol inhaler (Xopenex HFA) 2 inh inhalation R Q6HPRN PRN sob ##0 01/10/23
levothyroxine 50 mcg tablet 50 mcg PO DAILY Thyroid 01/10/23
lidocaine 1.8 % topical patch (ZTlido) 3 patch topical DAILYPRN PRN b/l knee,hip and/or lower back 01/10/23
meclizine 12.5 mg tablet 12.5 mg PO TID Vertigo 01/10/23
mirtazapine 45 mg tablet 45 mg PO HS Mental Health/Anxiety 01/10/23
pantoprazole 40 mg tablet,delayed release (Protonix) 40 mg PO BID Gastrointestinal Issue 01/10/23
sennosides 8.6 mg-docusate sodium 50 mg tablet 3 tab-cap PO HS Constipation ##0 01/10/23
valsartan 40 mg tablet 20 mg PO DAILY Blood Pressure 01/10/23
benztropine 1 mg tablet 1 mg PO BID@1200,2000 extrapyrimadal symptoms 01/12/23
benztropine 2 mg tablet 2 mg PO DAILY extrapyrimidal symptoms 05/14/23
cyanocobalamin (vitamin B-12) 1,000 mcg tablet 1,000 mcg PO Q48H Supplement 05/14/23
cyclobenzaprine 10 mg tablet 10 mg PO HS Muscle Spasms 05/14/23
ergocalciferol (vitamin D2) 1,250 mcg (50,000 unit) capsule 1,250 mcg PO WE Supplement 05/14/23
hydrocodone 10 mg-acetaminophen 325 mg tablet 1 tab PO Q6H PRN severe pain 05/14/23
lidocaine-prilocaine 2.5 %-2.5 % topical cream 1 applic topical Q8HPRN PRN breakthrough mild pain 05/14/23
memantine 10 mg tablet 10 mg PO BID Neurological Condition 05/14/23
ondansetron 4 mg disintegrating tablet 4 mg PO BIDPRN PRN nausea 05/14/23
furosemide 40 mg tablet 40 mg PO TUSA Fluid Retention/Swelling 07/13/23
tizanidine 2 mg tablet 2 mg PO BID Muscle Spasms 07/13/23
budesonide-formoterol HFA 160 mcg-4.5 mcg/actuation aerosol inhaler (Symbicort) 2 inh inhalation R BID Lung/Breathing Issues 10/08/23
calcium-vitamin D3-vitamin K 500 mg-100 unit-40 mcg chewable tablet 1 tab PO DAILY Supplement 03/22/24
cranberry 500 mg capsule 4,200 mg PO BID Supplement 03/22/24
fluticasone propionate 50 mcg/actuation nasal spray,suspension 1 spray intranasal BID Congestion 03/22/24
pregabalin 25 mg capsule (Lyrica) 25 mg PO TIDPRN PRN neuropathy 03/22/24
sucralfate 1 gram tablet 1 g PO BIDPRN PRN stomach ulcer 03/22/24
alprazolam 0.5 mg tablet 0.5 mg PO QID PRN Mental Health/Anxiety #0 tabs 03/24/24
cefuroxime axetil 500 mg tablet 500 mg PO BID Lung/breathing issues #7 tabs 03/24/24
doxycycline monohydrate 100 mg capsule 100 mg PO BID Lung/breathing issues #7 caps 03/24/24
guaifenesin 600 mg tablet, extended release 12 hr 600 mg PO Q12 Lung/breathing issues #0 tabs 03/24/24
potassium chloride 20 mEq tablet,extended release 20 meq PO DAILY Electrolyte Repletion #0 tabs 03/24/24
ferrous sulfate 325 mg (65 mg iron) tablet,delayed release 325 mg PO DAILY anemia #60 tabs 03/25/24
Home Medication Changes
new
Cefuroxime axetil 500 mg tablet 500 mg PO BID Lung/breathing issues #7 tabs 03/24/24
doxycycline monohydrate 100 mg capsule 100 mg PO BID Lung/breathing issues #7 caps 03/24/24
guaifenesin 600 mg tablet, extended release 12 hr 600 mg PO Q12 Lung/breathing issues #0 tabs 03/24/24
ferrous sulfate 325 mg (65 mg iron) tablet,delayed release 325 mg PO DAILY anemia #60 tabs 03/25/24
Dose change
potassium chloride 20 mEq tablet,extended release 20 meq PO DAILY Electrolyte Repletion #0 tabs 03/24/24
Pending Results: No
[2024-03-25] MEDS: FERRLECIT 110 MG IV (14:34)
[2024-03-25 15:47] VITALS: BP 135/92
[2024-03-25 15:58] VITALS: BP 152/73
== END 2024-03-25 16:23 | disposition home or self-care (01) | DRG 871 ==
LOC: 4 EAST ACU 13:25
PROVIDERS: ADMITTING PHYSICIAN Hospitalist; CONSULT PHYSICIAN Internal Medicine Critical Care Medicine; EMERGENCY PHYSICIAN Emergency Medicine; FAMILY PHYSICIAN Student in an Organized Health Care Education/Training Program; OTHER PHYSICIAN Internal Medicine Infectious Disease
DX: A41.89 Other specified sepsis (principal); J69.0 Pneumonitis due to inhalation of food and vomit; J44.1 Chronic obstructive pulmonary disease with (acute) exacerbation; J44.0 Chronic obstructive pulmonary disease with (acute) lower respiratory infection; E87.20 Acidosis, unspecified; Z11.52 Encounter for screening for COVID-19; I10 Essential (primary) hypertension; R09.02 Hypoxemia; R06.89 Other abnormalities of breathing; E11.65 Type 2 diabetes mellitus with hyperglycemia; E11.36 Type 2 diabetes mellitus with diabetic cataract; E03.9 Hypothyroidism, unspecified; F32.A Depression, unspecified; F41.9 Anxiety disorder, unspecified; F25.9 Schizoaffective disorder, unspecified; K21.9 Gastro-esophageal reflux disease without esophagitis
CPT/HCPCS: 51701; 71045; 74230; 80048; 80053; 81003; 81015; 82607; 82728; 82962; 83036; 83540; 83550; 83605; 85025; 85027; 87040; 87086; 87088; 87186; 87449; 87502; 87811; 92610; 92611; 93005; 93970; 94640; 96365; 96375; 97162; 97166; 97530; 99291; J2916

== ENCOUNTER → 2024-04-24 09:28 | Outpatient (REF) | payer OTHER, SELFPAY | LOC: HWRAD 09:28 | PROVIDERS: ATTENDING PHYSICIAN Internal Medicine Critical Care Medicine; FAMILY PHYSICIAN Student in an Organized Health Care Education/Training Program | DX: R91.8 Other nonspecific abnormal finding of lung field (principal); R19.7 Diarrhea, unspecified | CPT/HCPCS: 71250; 74018 ==

== ENCOUNTER 2024-07-07 19:43 | Inpatient (IN) | payer OTHER, SELFPAY ==
[2024-07-07 15:00] VITALS: BP 110/58
[2024-07-07 15:32] LABS: Hematocrit 39.7 % (37.0-47.0); Hemoglobin 13.2 g/dL (12.0-16.0); Mean Corp Hgb Conc. 33.2 g/dL (33.0-37.0); Mean Corpuscular Hgb 29.3 pg (27.0-31.0); Mean Platelet Volume 8.9 fL (7.4-10.4); Platelet Count 246 10^3/uL (130-400); Red Blood Cell Count 4.51 10^6/uL (4.20-5.40); Red Cell Dist. Width 14.1 % (11.5-14.5); White Blood Cell Count 25.4 10^3/uL (4.8-10.8)
[2024-07-07 15:41] LABS: ALT (SGPT) 43 U/L (0-35); AST (SGOT) 62 U/L (14-36); Alkaline Phosphatase 130 U/L (38-126); Blood Urea Nitrogen 26 mg/dl (7-17); Calcium 9.4 mg/dl (8.4-10.2); Carbon Dioxide 22 mmol/L (22-30); Chloride 99 mmol/L (98-107); Glucose 131 mg/dl (70-99); Sodium 138 mmol/L (135-145); Total Bilirubin 1.7 mg/dl (0.2-1.3); Total Protein 6.5 g/dl (6.3-8.2); eGFR 55.07
[2024-07-07 15:52] LABS: NT-proBNP 1460 pg/ml; Troponin I < 0.012 ng/ml
[2024-07-07 16:09] LABS: % Basophils 0.5 % (0-2); % Eosinophils 0.1 % (0-6); % Immature Granulocytes 0.8 % (0-0.5); % Lymphocytes 2.8 % (20.5-51.1); % Monocytes 2.3 % (1.7-9.3); % Neutrophils 93.5 % (42.2-75.2); Absolute Basophils 0.1 10^3/uL (0-0.2); Absolute Immature Granulocytes 0.2 10^3/uL (0-0.05); Absolute Lymphocytes 0.7 10^3/uL (1.2-3.4); Absolute Monocytes 0.6 10^3/uL (0.1-0.6); Absolute Neutrophils 23.8 10^3/uL (1.4-6.5); Nucleated Red Blood Cells % 0 %
--- NOTE | 2024-07-07 17:46 | ED.GENMED ---
History of Present Illness
General
Chief Complaint: Chest Pain
Time Seen by Provider: 07/07/24 17:07
History of Present Illness
History of Present Illness:
69-year-old female with history of COPD presents the emergency department for evaluation of shortness of breath, dizziness, and general weakness. She noted the symptoms began while on a walk today. She denies any coughing. Denies any fevers or
chest pain. No nausea, vomiting, or diarrhea. Was admitted to this hospital in March for COPD exacerbation and pneumonia
Past History
Past History
ED Past Medical History: Asthma, CVA, HTN, Hypercholesterolemia, NIDDM, [place] and Psychiatric
ED Past Surgical History: Cholecystectomy, Gynecological (Hysterectomy), Orthopedic (right knee replacement) and Other (Gastric bypass)
Social History
Tobacco: Non-smoker
Alcohol: None
Drug: None
Personal:
Living: alone
Employment: Disabled
Family History
Family History: Asthma
Review of Systems
Review of Systems
Allergies reviewed?: Yes
All Other Systems: ROS reviewed and negative except as documented in HPI and ROS
Phy Exam
Physical Exam
Physical Exam:
GEN: Tachypneic with pursed lip breathing, conversational dyspnea
HEENT: Oral mucosa moist, no scleral icterus
Cardiac: Regular rate
Lung: Conversational dyspnea with tachypnea noted, no accessory muscle use. Rhonchi and rales in the left lower field
MSK: No gross deformity or injuries
Skin: Good color, no pallor or jaundice, no rashes
Neuro: AO x3, moves all extremities freely
Psych: Calm, cooperative
Scores
Heart Score for Chest Pain Patients
STEMI patient?: Not applicable
Course
Orders/Labs/Results
Orders:
Orders
07/07/24 14:56
ECG [Electrocardiogram (*1)] Urgent
Reason for Study: Chest Pain
EKG- Treatment ONCE
07/07/24 15:02
CR Chest - 2 Views Urgent
Comment:
Reason For Exam: SOB
07/07/24 15:12
Complete Blood Count/With Diff Urgent
Comprehensive Metabolic Panel Urgent
NT-proBNP Urgent
Troponin I Urgent
07/07/24 17:44
CefTRIAXone [Rocephin] 1,000 mg IV NOW STA
Doxycycline [Vibramycin] 100 mg PO NOW STA
Abnormal Lab Results
07/07/24
15:12
WBC 25.4 H 10^3/uL
(4.8-10.8)
Abs Immat Gran (auto) 0.2 H 10^3/uL
(0-0.05)
Absolute Neuts (auto) 23.8 H 10^3/uL
(1.4-6.5)
Absolute Lymphs (auto) 0.7 L 10^3/uL
(1.2-3.4)
Immature Gran % 0.8 H %
(0-0.5)
Neutrophils % 93.5 H %
(42.2-75.2)
Lymphocytes % 2.8 L %
(20.5-51.1)
BUN 26 H mg/dl
(7-17)
Creatinine 1.1 H mg/dL
(0.6-1.0)
Glucose 131 H mg/dl
(70-99)
Total Bilirubin 1.7 H mg/dl
(0.2-1.3)
AST 62 H U/L
(14-36)
ALT 43 H U/L
(0-35)
Alkaline Phosphatase 130 H U/L
(38-126)
07/07/24 15:12
07/07/24 15:12
Vital Signs
Initial and Last Documented VS:
Initial Vital Signs
Temp Pulse Resp BP Pulse Ox
98.3 F 98 20 110/58 94
07/07/24 15:00 07/07/24 15:00 07/07/24 15:00 07/07/24 15:00 07/07/24 15:00
Last Documented Vital Signs
Temp Pulse Resp BP Pulse Ox
98.3 F 98 20 110/58 94
07/07/24 15:00 07/07/24 15:00 07/07/24 15:00 07/07/24 15:00 07/07/24 15:00
MDM/Problems Addressed
MDM/Problems Addressed:
Patient is quite tachypneic with even minimal ambulation although she is not profoundly hypoxic. Chest x-ray shows a dense left lower lobe infiltrate. She is high risk for complicated disease particularly given her hospitalization 3 months ago for
pneumonia and COPD. Will admit for IV antibiotics
*Critical Care Note
Total Time (30-74mins, 75-104mins- exclusive of procedures): Not Applicable
ED Attending Note
-
Portions of this chart may have been created with voice recognition software.� Occasional wrong word or��sound alike� substitutions may have occurred due to the inherent limitations of voice recognition software.
Discharge Plan
Departure
Patient Disposition: Admit
Date of Disposition: 07/07/24
Time of Disposition: 18:00
Admit to: Med/Surg
Presentation/result/management discussed w/ accepting MD/DO: Hospitalist
Discharge Problem:
Community acquired pneumonia
Prescriptions:
No Action
famotidine 40 MG tablet
40 mg PO HS
atorvastatin 80 mg Tablet
80 mg PO DAILY
clopidogrel 75 mg Tablet
75 mg PO DAILY
pantoprazole [Protonix] 40 mg Tablet,Delayed Release (Dr/Ec)
40 mg PO BID
benzonatate 200 mg Capsule
200 mg PO TIDPRN PRN (Reason: cough)
donepezil 10 mg Tablet
10 mg PO HS
sennosides-docusate sodium 8.6-50 mg Tablet
3 tab-cap PO HS Qty: 0
meclizine 12.5 mg Tablet
12.5 mg PO TID
levothyroxine 50 mcg Tablet
50 mcg PO DAILY
mirtazapine 45 mg Tablet
45 mg PO HS
valsartan 40 mg Tablet
20 mg PO DAILY
levalbuterol tartrate [Xopenex HFA] 45 mcg/actuation Hfa Aerosol Inhaler
2 inh INHALATION R Q6HPRN PRN (Reason: sob) Qty: 0
ZTlido 1.8 % Adhesive Patch,Medicated
3 patch TOPICAL DAILYPRN PRN (Reason: b/l knee,hip and/or lower back)
Rx Instructions:
UP TO 3 patches a day max on at HS off in am
benztropine 1 mg Tablet
1 mg PO BID@1200,2000
cyclobenzaprine 10 mg Tablet
10 mg PO HS
cyanocobalamin (vitamin B-12) 1,000 mcg Tablet
1,000 mcg PO Q48H
hydrocodone-acetaminophen 10-325 mg Tablet
1 tab PO Q6H PRN (Reason: severe pain)
Patient Comments:
07/13/2023: last filled 07/02/23, 120 tabs for 30 days from [facility]
benztropine 2 mg Tablet
2 mg PO DAILY
ergocalciferol (vitamin D2) 1,250 mcg (50,000 unit) Capsule
1,250 mcg PO WE
ondansetron 4 mg Tablet,Disintegrating
4 mg PO BIDPRN PRN (Reason: nausea)
memantine 10 mg tablet
10 mg PO BID
lidocaine-prilocaine 2.5-2.5 % Cream
1 applic TOPICAL Q8HPRN PRN (Reason: breakthrough mild pain )
Rx Instructions:
apply to bilateral knees, bilateral hips and lower back
tizanidine 2 mg tablet
2 mg PO BID
furosemide 40 MG tablet
40 mg PO TUSA
budesonide-formoterol [Symbicort] 160-4.5 mcg/actuation Hfa Aerosol Inhaler
2 inh INHALATION R BID
fluticasone propionate 50 mcg/actuation [place],Suspension
1 spray INTRANASAL BID
cranberry 500 mg Capsule
4,200 mg PO BID
pregabalin [Lyrica] 25 mg Capsule
25 mg PO TIDPRN PRN (Reason: neuropathy)
calcium-vitamin D3-vitamin K 500-100-40 mg-unit-mcg Tablet,Chewable
1 tab PO DAILY
sucralfate 1 gram tablet
1 g PO BIDPRN PRN (Reason: stomach ulcer)
guaifenesin 600 mg Tablet Extended Release 12hr
600 mg PO Q12 Qty: 0 0RF
cefuroxime axetil 500 mg tablet
500 mg PO BID Qty: 7 0RF
doxycycline monohydrate 100 mg capsule
100 mg PO BID Qty: 7 0RF
alprazolam 0.5 mg Tablet
0.5 mg PO QID PRN (Reason: Mental Health/Anxiety) Qty: 0 0RF
Patient Comments:
07/13/2023: last filled 07/13/23, 120 tabs for 30 days from [facility]
potassium chloride 20 mEq Tablet Extended Release
20 meq PO DAILY Qty: 0 0RF
ferrous sulfate 325 mg (65 mg iron) tablet,delayed release (DR/EC)
325 mg PO DAILY Qty: 60 0RF
Referrals:
Torrie Arizmendi MD [Family Provider] -
Interventions
Interventions:
*General Assessment Last Done: 07/07/24 15:00
Discharge Date and Time
Print Language: LAO
--- NOTE | 2024-07-07 18:59 | W.PN.HOSP.TC ---
Today's Communication/Plan
-
empiric abx
Assessment / Plan
Assessment / Plan
Acute Left Lower Lung Pneumonia
Hospitalized 03/22-03/25/24 with [facility]
Hx of asthma
essential HTN
HLD
NIDDM
Hx of CVA
Cognitive impairment
GERD
P: empiric abx
Pulm consult
Duonebs
VSE
As per patient, she is a DNR
see dictated note
Anticipated Discharge: > 48 hours
Subjective/Interval History
-
Date of Service: July 07, 2024
Cough, sob, weakness onset today
Objective Data
-
Labs:
Laboratory Results
07/07/24
15:12
WBC 25.4 H
Hgb 13.2
Hct 39.7
Plt Count 246
Sodium 138
Potassium 4.0
Chloride 99
Carbon Dioxide 22
BUN 26 H
Creatinine 1.1 H
Glucose 131 H
Calcium 9.4
Total Bilirubin 1.7 H
AST 62 H
ALT 43 H
Alkaline Phosphatase 130 H
Vital Signs:
Vital Signs
Temp Pulse Resp BP Pulse Ox
98.3 F 86 22 110/58 93
07/07/24 15:00 07/07/24 18:10 07/07/24 18:10 07/07/24 15:00 07/07/24 18:10
Review of Systems
-
History Source: Patient and Coordinated Provider
Constitutional: Denies Fever
EENT: Reports No Symptoms Reported
Respiratory: Reports Cough and Trouble Breathing
Cardiac: Reports No Symptoms; Denies Chest Pain
Genitourinary: Reports No Symptoms
Neuro: Reports No Symptoms
Physical Exam
-
General: Well Developed, Well Nourished and Appears Chronically Ill
HEENT: Normocephalic, Atraumatic and Moist Mucous Membranes
Respiratory: Rales (bibasilar rales)
Cardiac: Regular Rhythm and S1/S2
Breast: Deferred by me
GI: Soft, Nontender and Nondistended
Musculoskeletal: No Clubbing, No Cyanosis and No Edema
Neuro: Awake, Alert and Oriented
[2024-07-07] MEDS: VIBRAMYCIN 100 MG PO (19:57)
[2024-07-07] MEDS: ROCEPHIN 1000 MG IV (19:57)
[2024-07-07 20:02] VITALS: BP 103/53
[2024-07-07 21:23] VITALS: BP 145/69
[2024-07-07 21:25] VITALS: BMI 30.3
--- NOTE | 2024-07-07 22:03 | RESPNOTE ---
pharmacy approved symbicort order
[2024-07-07] MEDS: SYMBICORT 160/4.5 MCG INHALER 2 PUFF INH (22:07)
[2024-07-07] MEDS: FLEXERIL 10 MG PO (22:22)
[2024-07-07] MEDS: REMERON 45 MG PO (22:27)
[2024-07-07] MEDS: ANTIVERT 25 MG PO (22:28)
[2024-07-07] MEDS: PEPCID 40 MG PO (22:28)
[2024-07-07] MEDS: XANAX 0.5 MG PO (22:28)
[2024-07-07] MEDS: ARICEPT 10 MG PO (22:28)
[2024-07-07] MEDS: NAMENDA 10 MG PO (22:29)
[2024-07-07] MEDS: HEPARIN 5000 UNITS SC (22:30)
[2024-07-07] MEDS: PROTONIX 40 MG PO (22:30)
[2024-07-07] MEDS: FLAGYL 500 MG 100 IV (22:31)
[2024-07-07] MEDS: ZANAFLEX 2 MG PO (22:42)
[2024-07-07] MEDS: NORCO 7.5/325 1 TABLET PO (22:43)
[2024-07-07 23:50] VITALS: BP 102/52
[2024-07-08 00:11] VITALS: BP 102/52
[2024-07-08 06:00] VITALS: BMI 30.2
[2024-07-08] MEDS: FLAGYL 500 MG 100 IV ×3 (06:29→21:28)
[2024-07-08] MEDS: SYNTHROID 50 MCG PO (06:30)
[2024-07-08 07:34] VITALS: BP 139/108
[2024-07-08 08:00] VITALS: BP 130/60
[2024-07-08] MEDS: SYMBICORT 160/4.5 MCG INHALER 2 PUFF INH ×2 (08:00→21:01)
[2024-07-08 08:18] LABS: Hematocrit 33.5 % (37.0-47.0); Hemoglobin 11.2 g/dL (12.0-16.0); Mean Corp Hgb Conc. 33.4 g/dL (33.0-37.0); Mean Corpuscular Hgb 30.7 pg (27.0-31.0); Mean Corpuscular Volume 91.8 fL (81.0-99.0); Mean Platelet Volume 9.3 fL (7.4-10.4); Platelet Count 196 10^3/uL (130-400); Red Blood Cell Count 3.65 10^6/uL (4.20-5.40); Red Cell Dist. Width 14.5 % (11.5-14.5); White Blood Cell Count 26.2 10^3/uL (4.8-10.8)
[2024-07-08 08:24] LABS: Blood Urea Nitrogen 25 mg/dl (7-17); Calcium 8.2 mg/dl (8.4-10.2); Carbon Dioxide 26 mmol/L (22-30); Chloride 99 mmol/L (98-107); Estimated Creatinine Clearance 75 ml/min; Glucose 121 mg/dl (70-99); Potassium 4.3 mmol/L (3.5-5.1); Sodium 138 mmol/L (135-145); eGFR > 60.00
[2024-07-08] MEDS: LASIX 80 MG PO (08:27)
[2024-07-08] MEDS: LIPITOR 80 MG PO (08:27)
[2024-07-08] MEDS: PLAVIX 75 MG PO (08:27)
[2024-07-08] MEDS: DIOVAN 20 MG PO (08:28)
[2024-07-08] MEDS: KCL 20 MEQ PO (08:28)
[2024-07-08] MEDS: PROTONIX 40 MG PO ×2 (08:28→21:25)
[2024-07-08] MEDS: VITAMIN B-12 1000 MCG PO (08:28)
[2024-07-08] MEDS: HEPARIN 5000 UNITS SC ×2 (08:28→21:25)
[2024-07-08] MEDS: NORCO 7.5/325 1 TABLET PO ×2 (08:28→17:54)
[2024-07-08] MEDS: ANTIVERT 25 MG PO ×2 (08:28→21:24)
[2024-07-08] MEDS: ZANAFLEX 2 MG PO ×2 (08:30→21:26)
[2024-07-08] MEDS: NAMENDA 10 MG PO ×2 (08:31→21:26)
[2024-07-08] MEDS: COGENTIN 2 MG PO (08:55)
--- NOTE | 2024-07-08 10:59 | CON.PUL ---
Consultation
Consultation Request
Date/Time Consultation Requested: 07/08/2024-8 AM
Date/Time Consultation Performed: 07/08/2024-8:30 AM
Requesting Provider: Dr. Garcia
Performing Provider: Dr. Tse
Reason for Consultation: Pneumonia
Medical History
-
Chief Complaint: Shortness of breath
History of Present Illness:
69-year-old female patient followed by Dr. Szymanski with suspected aspiration, pulmonary nodule, asthma, previous EVELINA, hypertension, hyperlipidemia who presented with increasing shortness of breath and cough felt to have pneumonia-pulmonary consulted
for pneumonia 07/08/2024. Patient feels somewhat improved on oxygen. She does have a minimal cough. She denies any coughing after drinking or eating. She did not complain of fevers, chills, but has some dyspnea on exertion. She is not on oxygen
at home. She has a gastroenterology appointment coming up as advised by Dr. Szymanski. She did not complain of abdominal pain, nausea, vomiting, leg swelling or weakness.
Past Medical History
Past Medical History: None (Asthma. Pulmonary nodule. Recurrent pneumonia-aspiration suspected EVELINA resolved with weight loss. Obesity/bariatric surgery. Hypertension. Hyperlipidemia. Diabetes. Hypothyroid. History CVA.
Anxiety/depression/schizoaffective disorder. Cognitive dysfunction. GERD. Vertigo. )
Past Surgical History: None (Diverticulosis. Cholecystectomy. Right knee repair. Tonsillectomy. Carpal tunnel . Cataract. Glaucoma. Hysterectomy.)
Social History
Tobacco: Non-smoker
Alcohol: None
Drug: None
Occupational Exposures: No known asbestos exposure
Environmental Exposures: No known tuberculosis exposure
Family History
Family History: Other (Father-COPD. Mother-CVA and hypertension)
Allergies / Home Medications
Allergies
Allergy/AdvReac Type Severity Reaction Status Date / Time
celecoxib [From Celebrex] Allergy Unknown Verified 07/07/24 15:00
hydrochlorothiazide Allergy Unknown Verified 07/07/24 15:00
NSAIDS (Non-Steroidal Allergy Gastric Verified 07/07/24 15:00
Anti-Inflamma Bypass
pregabalin [From Lyrica] Allergy Unknown Verified 07/07/24 15:00
promethazine Allergy Unknown Verified 07/07/24 15:00
zolpidem [From Ambien] Allergy Unknown Verified 07/07/24 15:00
Home Medications
�Medication �Instructions �Recorded �Confirmed �Last Taken �Type
famotidine 40 mg tablet 40 mg PO HS Gastrointestinal Issue 05/19/15 07/07/24 03/21/24 History
atorvastatin 80 mg tablet 80 mg PO DAILY High Cholesterol 01/10/23 07/07/24 03/22/24 History
benzonatate 200 mg capsule 200 mg PO TIDPRN PRN cough 01/10/23 07/07/24 Unknown History
clopidogrel 75 mg tablet 75 mg PO DAILY Blood Clot 01/10/23 07/07/24 03/22/24 History
Prevention/Tx
donepezil 10 mg tablet 10 mg PO HS Mental Health/Anxiety 01/10/23 07/07/24 03/21/24 History
levalbuterol tartrate 45 2 inh inhalation R Q6HPRN PRN sob 01/10/23 07/07/24 Unknown History
mcg/actuation aerosol inhaler ##0
(Xopenex HFA)
levothyroxine 50 mcg tablet 50 mcg PO DAILY Thyroid 01/10/23 07/07/24 03/22/24 History
lidocaine 1.8 % topical patch 3 patch topical DAILYPRN PRN b/l 01/10/23 07/07/24 03/22/24 History
(ZTlido) knee,hip and/or lower back
meclizine 12.5 mg tablet 25 mg PO BID Vertigo 01/10/23 07/07/24 03/22/24 History
mirtazapine 45 mg tablet 45 mg PO HS Mental Health/Anxiety 01/10/23 07/07/24 03/21/24 History
pantoprazole 40 mg tablet,delayed 40 mg PO BID Gastrointestinal Issue 01/10/23 07/07/24 03/22/24 History
release (Protonix)
sennosides 8.6 mg-docusate sodium 3 tab-cap PO HS Constipation ##0 01/10/23 07/07/24 03/21/24 History
50 mg tablet
valsartan 40 mg tablet 20 mg PO DAILY Blood Pressure 01/10/23 07/07/24 03/22/24 History
benztropine 1 mg tablet 1 mg PO BID@1200,2000 01/12/23 03/22/24 03/21/24 History
extrapyrimadal symptoms
benztropine 2 mg tablet 2 mg PO DAILY extrapyrimidal 05/14/23 03/22/24 03/22/24 History
symptoms
cyanocobalamin (vitamin B-12) 1,000 mcg PO Q48H Supplement 05/14/23 07/07/24 Unknown History
1,000 mcg tablet
cyclobenzaprine 10 mg tablet 10 mg PO HS Muscle Spasms 05/14/23 07/07/24 03/21/24 History
ergocalciferol (vitamin D2) 1,250 1,250 mcg PO WE Supplement 05/14/23 07/07/24 03/22/24 History
mcg (50,000 unit) capsule
hydrocodone 10 mg-acetaminophen 1 tab PO Q6H PRN severe pain 05/14/23 07/07/24 03/22/24 History
325 mg tablet
lidocaine-prilocaine 2.5 %-2.5 % 1 applic topical Q8HPRN PRN 05/14/23 07/07/24 Unknown History
topical cream breakthrough mild pain
memantine 10 mg tablet 10 mg PO BID Neurological Condition 05/14/23 07/07/24 03/22/24 History
ondansetron 4 mg disintegrating 4 mg PO BIDPRN PRN nausea 05/14/23 07/07/24 Unknown History
tablet
furosemide 40 mg tablet 80 mg PO TUSA Fluid 07/13/23 07/07/24 03/21/24 History
Retention/Swelling
tizanidine 2 mg tablet 2 mg PO BID Muscle Spasms 07/13/23 07/07/24 03/22/24 History
budesonide-formoterol HFA 160 2 inh inhalation R BID 10/08/23 07/07/24 03/22/24 History
mcg-4.5 mcg/actuation aerosol Lung/Breathing Issues
inhaler (Symbicort)
cranberry 500 mg capsule 4,200 mg PO BID Supplement 03/22/24 07/07/24 03/22/24 History
fluticasone propionate 50 1 spray intranasal BID Congestion 03/22/24 07/07/24 03/22/24 History
mcg/actuation nasal
spray,suspension
pregabalin 25 mg capsule (Lyrica) 25 mg PO TIDPRN PRN neuropathy 03/22/24 07/07/24 Unknown History
sucralfate 1 gram tablet 1 g PO BIDPRN PRN stomach ulcer 03/22/24 07/07/24 Unknown History
alprazolam 0.5 mg tablet 0.5 mg PO QID PRN Mental 03/24/24 07/07/24 03/22/24 Rx
Health/Anxiety #0 tabs
doxycycline monohydrate 100 mg 100 mg PO BID Lung/breathing 03/24/24 Unknown Rx
capsule issues #7 caps
benztropine 2 mg tablet 1 mg PO BID 07/07/24 07/07/24 Unknown History
calcium 500 mg-vitamin D3 100 1 tab DAILY 07/07/24 07/07/24 Unknown History
unit-vitamin K 40 mcg chewable
tablet
potassium chloride 20 mEq meq PO 07/07/24 Unknown History
tablet,extended
release(part/cryst) (Klor-Con M)
Review of Systems
-
Unable to Obtain full review of systems at this time due to: Other (Per HPI)
Vitals / Labs / Diagnostic Testing
Vital Signs
Temp Pulse Resp BP Pulse Ox
98.9 F 85 16 130/60 95
07/08/24 07:34 07/08/24 08:04 07/08/24 08:04 07/08/24 08:00 07/08/24 08:04
Lab Data
07/08/24 06:57
07/08/24 06:57
Diagnostic Testing:
Physical Exam
-
Exam:
Well-nourished and well-developed in no apparent distress
HEENT-atraumatic, normocephalic
Neck-supple, no JVD, no bruit
Heart-regular rate and rhythm-no murmurs, rubs or gallops
Chest with rare crackles at the bases and no wheezes
Abdomen-soft, nontender, nondistended, no hepatosplenomegaly
Extremities-no cyanosis, clubbing, edema and good peripheral pulses
Integument-intact, no rashes, lesions or ecchymosis
Neurology-alert and oriented, nonfocal motor and sensory exam
Assessment
-
69-year-old female patient followed by Dr. Szymanski with suspected aspiration, pulmonary nodule, asthma, previous EVELINA, hypertension, hyperlipidemia who presented with increasing shortness of breath and cough felt to have pneumonia-pulmonary consulted
for pneumonia 07/08/2024.
Community-acquired pneumonia with recent hospitalization-aspiration suspected
Aspiration risk
Leukocytosis
Mild szyegn-gspqwordoo-xzlzdlwhqu 11.2
Mild hyperglycemia
Elevated LFTs including total bilirubin
Asthma-mild intermittent with no exacerbation
Chronic cough
DNR
Conditions present prior to admission:
Hospitalization March 2024-right lower lobe pneumonia-aspiration suspected
Asthma.
Pulmonary nodule.
Recurrent pneumonia-aspiration suspected
EVELINA resolved with weight loss.
Obesity/bariatric surgery.
Hypertension.
Hyperlipidemia.
Diabetes.
Hypothyroid.
History CVA.
Anxiety/depression/schizoaffective disorder.
Cognitive dysfunction.
GERD.
Vertigo.
Diverticulosis.
Cholecystectomy. Right knee repair. Tonsillectomy. Carpal tunnel 2020 11/2022. Cataract. Glaucoma. Hysterectomy.
Plan
Patient followed closely by Dr. Szymanski.
Patient has underlying asthma maintained on Symbicort and Xopenex as needed, he also treats for postnasal drip with Aurea, Astelin and Flonase-he ordered CT sinuses
Patient has frequent recurrent pneumonias and waxing and waning nodules suspected related to aspiration with underlying severe reflux-ongoing problem after bariatric surgery
Radiographs, CT of the chest, CT of the sinuses, lower extremity ultrasound and pulmonary functions were reviewed and summarized below
Supplemental oxygen as needed
Incentive spirometry encouraged
Aspiration precautions
Speech therapy/video swallow 03/2024 reviewed-regular diet with thin liquids
Has GI evaluation as an outpatient in the next 1 month
Mucolytic's
Antitussives
Nebulizers and inhalers as needed-on Symbicort and Xopenex nebulizers
Symbicort 160/4.5 continues
Steroids not indicated
Check immunoglobulin levels with recurrent infections-not clear if aspiration
Check cultures
Broad-spectrum antibiotics-on ceftriaxone, and metronidazole
Add doxycycline for atypical coverage
Follow radiographically
Monitoring leukocytosis
Follow hemoglobin
Transfuse if needed
Monitor blood sugar
Insulin supplementation as needed
DVT prophylaxis-on heparin
GI prophylaxis-on pantoprazole as well as famotidine
Nutrition with aspiration precautions
Early mobilization
Patient was last seen by Dr. Szymanski 03/07/2024 and has a follow-up appointment 04/05/2024 at 4:15 PM
Diagnostic data:
CXR 10/29/22: New areas of linear interstitial airspace disease in the right middle lobe and basilar portion of the left lower lobe suggesting interstitial pneumonia/bronchiolitis
Chest x-ray 03/02/2024-��NAD
Chest x-ray 03/22/20242055-[id number] pneumonia, no large parapneumonic effusion is appreciated
Chest x-ray 07/07/2024-left lower lobe pneumonia
CT chest 04/24/2024-resolution of right pneumonia, low lung volumes with scattered bilateral subsegmental atelectasis, stable 7 mm solid pulmonary nodule
CT scan08/09/2023: Reviewed,Jermaine Stanley 08/24/2023 08:54:12 AM >��1. Stable left lisa-fissural nodule, likely benign.2.� Interval resolution of previously seen left upper lobe groundglass densities.��������-��������CXR 05/16/2023: Right
upper lobe pneumonia appears unchanged. Linear foci in the left lower lobe may be subsegmental atelectasis.��������-��������
CT chest 04/12/2023: Previous opacity/pneumonia in the right lower lobe has resolved. Mild scarring versus atelectasis in the mid to lower lung zones. A perifissural nodule in the left mid to lower lung zone has remained stable. Multiple subtle
groundglass nodular opacities have developed in the left upper lobe measuring up to 8.4 mm.��������-
VSE 01/12/2023: Upper laryngeal penetration. No aspiration.��������-��������
CT chest 01/10/2023:showed no evidence for central pulmonary embolism. Patchy right lower lobe opacification, most likely pneumonia. Prominence of pulmonary interstitium some vague groundglass opacities bilaterally, sparing the Overload. Mild chronic
fiber changes.��������-��������
CT chest01/10/2023: showed no evidence for acute pulmonary embolism.Right lower lobe airspace disease, likely pneumonia, new compared to November 2022. Mild bilateral groundglass opacities.Stable left lower lobe pulmonary nodule.��������-��������
CT chest 2022:Reviewed, showed 8 mm pleural-based pulmonary nodule slightly increased compared to prior examinations.����������������-��������
CT chest 05/08/2022: Solid pleural-based 8 mm left lower lobe pulmonary nodule. Appearance of slight increase in size. However this can be due to the location and the slice image. Moderate right upper lobe and right lower lobe atelectasis versus
scarring. Mild lingular and right middle lobe atelectasis versus scarring. Gallbladder has been removed.
CT sinus 03/14/2024-unremarkable CT of the sinuses
Lower extremity ultrasound 03/22/2024-no evidence for DVT
PFT 08/24/2023-FEV1 2.16-86%, FVC 2.78-84%, TLC 76%, RV 55%, DLCO 72%, DLCO/VA 89%
[2024-07-08] MEDS: EMLA CREAM 5 GRAM TOPICAL (11:20)
[2024-07-08] MEDS: COGENTIN 1 MG PO ×2 (11:20→17:27)
[2024-07-08 11:54] LABS: Urine Albumin Trace (Neg - Trace); Urine Bilirubin Negative (Negative); Urine Character Clear (Clear); Urine Color Yellow; Urine Glucose Negative (Negative); Urine Ketone Negative (Negative); Urine Leukocyte 2+ (Negative); Urine Nitrite Positive (Negative); Urine Occult Blood Trace (Negative); Urine Specific Gravity 1.015 (<1.030); Urine Urobilinogen 1+ (Neg - 1+)
[2024-07-08 12:59] LABS: Urine Bacteria Few (Negative); Urine Red Blood Cell 0-2 /HPF (0-2); Urine Squamous Cell 0-2 /LPF (Few); Urine White Cell 16-20 /HPF (0-5)
--- NOTE | 2024-07-08 13:56 | PTOTSP ---
SPEECH THERAPY SWALLOW EVALUATION:
Patient exhibits clinical signs of oropharyngeal dysphagia, likely chronic related to history of asthma, CVA, COPD, GERD. Patient with history of pneumonia x6 in past 2 years per pt report. No overt signs of aspiration at bedside; However, unable to
rule out dysphagia/aspiration at bedside. History of VSE x2 in 12/2022 and 03/2024. Recommend repeat Videofluoroscopic Swallowing Study to further assess swallow physiology at this time. Discussed Easy to Chew diet with patient given difficulty with
solids; Pt adamantly refused any modified diet despite rationale. Given that patient was able to implement safe swallow strategies during 100% of p.o. trials, it is reasonable to resume baseline Regular texture diet (with patient to select
soft/moist and easy to chew items) and thin liquids as per VSE recommendations from 03/23/2024. Medications whole with liquid as best tolerated. Speech therapy to follow and provide further recommendations following VSE. Discussed with patient and
Radha.
Recommend:
1) VSE
2) Regular (pick soft/moist foods which are easy to chew), Thin Liquids
3) Medications as best tolerated
4) Aspiration precautions/safe swallow strategies: upright to 90 degrees, small single sips/bites, tuck chin, slow rate, small frequent meals, reflux precautions, supervision with meals to ensure use of strategies
5) Oral care 3x daily
6) ST to follow
[2024-07-08 15:34] VITALS: BP 103/56
--- NOTE | 2024-07-08 17:19 | W.PN.HOSP.TC ---
Today's Communication/Plan
-
continue current Tx
await VSE
Assessment / Plan
Assessment / Plan
Acute Left Lower Lung Pneumonia
appears better, but WBC 25.4-->26.2
input of pulm appreciated
She had a VSE 12/2022 and 03/2024 that did not demonstrate aspiration, though recurrent aspirations would explain clinical situation. Will repeat
Hospitalized 03/22-03/25/24 with [facility]
Hx of asthma
essential HTN
HLD
NIDDM
Hx of CVA
Cognitive impairment
GERD
P: empiric abx
Pulm consult
Duonebs
VSE
Pt concerned about Narcotic analgesic, will order Vicodin 7.5.
As per patient, she is a DNR
Anticipated Discharge: > 48 hours
Subjective/Interval History
-
Date of Service: July 08, 2024
Pt concerned about her pain medications
Objective Data
-
Labs:
Laboratory Results
07/08/24
06:57
WBC 26.2 H
Hgb 11.2 L
Hct 33.5 L
Plt Count 196 D
Sodium 138
Potassium 4.3
Chloride 99
Carbon Dioxide 26
BUN 25 H
Creatinine 0.8
Glucose 121 H
Calcium 8.2 L
Vital Signs:
Vital Signs
Temp Pulse Resp BP Pulse Ox
98.8 F 90 17 103/56 93
07/08/24 15:34 07/08/24 15:34 07/08/24 15:34 07/08/24 15:34 07/08/24 15:34
I&O
07/07/24 07/08/24 07/09/24
06:59 06:59 06:59
Intake Total 480 / 480
Balance 480 / 480
Review of Systems
-
History Source: Patient and Coordinated Provider
Constitutional: Denies Fever
EENT: Reports No Symptoms Reported
Respiratory: Reports Cough and Trouble Breathing
Cardiac: Reports No Symptoms; Denies Chest Pain
Genitourinary: Reports No Symptoms
Neuro: Reports No Symptoms
Physical Exam
-
General: Well Developed, Well Nourished and Appears Chronically Ill
HEENT: Normocephalic, Atraumatic and Moist Mucous Membranes
Respiratory: Rales (rales today noted only on left side)
Cardiac: Regular Rhythm and S1/S2
Breast: Deferred by me
GI: Soft, Nontender and Nondistended
Musculoskeletal: No Clubbing, No Cyanosis and No Edema
Neuro: Awake, Alert and Oriented
[2024-07-08] MEDS: PEPCID 40 MG PO (21:24)
[2024-07-08] MEDS: XANAX 0.5 MG PO (21:24)
[2024-07-08] MEDS: ARICEPT 10 MG PO (21:24)
[2024-07-08] MEDS: REMERON 45 MG PO (21:27)
[2024-07-08] MEDS: FLEXERIL 10 MG PO (21:27)
[2024-07-08] MEDS: VIBRAMYCIN 100 MG PO (21:27)
[2024-07-08] MEDS: STERILE WATER FOR INJECTION 10 ML IV (21:28)
[2024-07-08] MEDS: ROCEPHIN 1000 MG IV (21:28)
[2024-07-08] MEDS: NON-FORMULARY ITEM 3 PATCH TOPICAL (21:33)
[2024-07-08 23:23] VITALS: BP 94/49
[2024-07-09 05:10] VITALS: BP 112/67
[2024-07-09] MEDS: NORCO 7.5/325 1 TABLET PO ×2 (05:16→15:29)
[2024-07-09] MEDS: FLAGYL 500 MG 100 IV ×3 (05:17→23:51)
[2024-07-09] MEDS: SYNTHROID 50 MCG PO (05:17)
[2024-07-09 05:33] VITALS: BMI 30.2
[2024-07-09 06:00] VITALS: BMI 30.2
--- NOTE | 2024-07-09 07:18 | W.PN.PUL.V3 ---
Today's Communication / Plan
-
Antibiotics
Aspiration precautions
Inhalers
Nebulizers as needed
Observe off steroids
Outpatient pulmonary follow-up
Assessment
-
69-year-old female patient followed by Dr. Szymanski with suspected aspiration, pulmonary nodule, asthma, previous EVELINA, hypertension, hyperlipidemia who presented with increasing shortness of breath and cough felt to have pneumonia-pulmonary consulted
for pneumonia 07/08/2024.
Community-acquired pneumonia with recent hospitalization-aspiration suspected
Aspiration risk
Leukocytosis
Mild okbcqe-ukqnqtbjmd-mymstjbkzk 11.2
Mild hyperglycemia
Elevated LFTs including total bilirubin
Asthma-mild intermittent with no exacerbation
Chronic cough
DNR
Conditions present prior to admission:
Hospitalization March 2024-right lower lobe pneumonia-aspiration suspected
Asthma.
Pulmonary nodule.
Recurrent pneumonia-aspiration suspected
EVELINA resolved with weight loss.
Obesity/bariatric surgery.
Hypertension.
Hyperlipidemia.
Diabetes.
Hypothyroid.
History CVA.
Anxiety/depression/schizoaffective disorder.
Cognitive dysfunction.
GERD.
Vertigo.
Diverticulosis.
cholecystectomy. Right knee repair. Tonsillectomy. Carpal tunnel 2020 11/2022. Cataract. Glaucoma. Hysterectomy.
Plan
Patient followed closely by Dr. Szymanski.
Patient has underlying asthma maintained on Symbicort and Xopenex as needed, he also treats for postnasal drip with Aurea, Astelin and Flonase-he ordered CT sinuses
Patient has frequent recurrent pneumonias and waxing and waning nodules suspected related to aspiration with underlying severe reflux-ongoing problem after bariatric surgery
Radiographs, CT of the chest, CT of the sinuses, lower extremity ultrasound and pulmonary functions were reviewed and summarized below
Respiratory status somewhat improved
Supplemental oxygen as needed-currently on 1 L
Incentive spirometry encouraged
Aspiration precautions
Speech therapy/video swallow 03/2024 reviewed-regular diet with thin liquids
Has GI evaluation as an outpatient in the next 1 month
Mucolytic's
Antitussives continue
Nebulizers and inhalers as needed-on Symbicort and Xopenex nebulizers
Symbicort 160/4.5 continues
Steroids not indicated at this time
Check immunoglobulin levels with recurrent infections-not clear if aspiration
Cultures reviewed
Urine culture-pending
Unable to produce sputum for culture
Broad-spectrum antibiotics-on ceftriaxone, and metronidazole
Doxycycline added for atypical coverage
Follow radiographically
Monitoring leukocytosis
Follow hemoglobin-currently 10.5
Transfuse if needed
Monitor blood sugar
Insulin supplementation as needed
DVT prophylaxis-on heparin
GI prophylaxis-on pantoprazole as well as famotidine
Nutrition with aspiration precautions
Early mobilization
Patient was last seen by Dr. Szymanski 03/07/2024 and has a follow-up appointment 04/05/2024 at 4:15 PM
Diagnostic data:
CXR 10/29/22: New areas of linear interstitial airspace disease in the right middle lobe and basilar portion of the left lower lobe suggesting interstitial pneumonia/bronchiolitis
Chest x-ray 03/02/2024-��NAD
Chest x-ray 03/22/20249699-[id number]-wdivk pneumonia, no large parapneumonic effusion is appreciated
Chest x-ray 07/07/2024-left lower lobe pneumonia
CT chest 04/24/2024-resolution of right pneumonia, low lung volumes with scattered bilateral subsegmental atelectasis, stable 7 mm solid pulmonary nodule
CT scan08/09/2023: Reviewed,Jermaine Stanley 08/24/2023 08:54:12 AM >��1. Stable left lisa-fissural nodule, likely benign.2.� Interval resolution of previously seen left upper lobe groundglass densities.��������-��������CXR 05/16/2023: Right
upper lobe pneumonia appears unchanged. Linear foci in the left lower lobe may be subsegmental atelectasis.��������-��������
CT chest 04/12/2023: Previous opacity/pneumonia in the right lower lobe has resolved. Mild scarring versus atelectasis in the mid to lower lung zones. A perifissural nodule in the left mid to lower lung zone has remained stable. Multiple subtle
groundglass nodular opacities have developed in the left upper lobe measuring up to 8.4 mm.��������-
VSE 01/12/2023: Upper laryngeal penetration. No aspiration.��������-��������
CT chest 01/10/2023:showed no evidence for central pulmonary embolism. Patchy right lower lobe opacification, most likely pneumonia. Prominence of pulmonary interstitium some vague groundglass opacities bilaterally, sparing the Overload. Mild chronic
fiber changes.��������-��������
CT chest01/10/2023: showed no evidence for acute pulmonary embolism.Right lower lobe airspace disease, likely pneumonia, new compared to November 2022. Mild bilateral groundglass opacities.Stable left lower lobe pulmonary nodule.��������-��������
CT chest 2022:Reviewed, showed 8 mm pleural-based pulmonary nodule slightly increased compared to prior examinations.����������������-��������
CT chest 05/08/2022: Solid pleural-based 8 mm left lower lobe pulmonary nodule. Appearance of slight increase in size. However this can be due to the location and the slice image. Moderate right upper lobe and right lower lobe atelectasis versus
scarring. Mild lingular and right middle lobe atelectasis versus scarring. Gallbladder has been removed.
CT sinus 03/14/2024-unremarkable CT of the sinuses
Lower extremity ultrasound 03/22/2024-no evidence for DVT
PFT 08/24/2023-FEV1 2.16-86%, FVC 2.78-84%, TLC 76%, RV 55%, DLCO 72%, DLCO/VA 89%
Subjective Data
-
Date of Service:
Date of Service: July 09, 2024
Chief Complaint: Pulmonary Follow Up and Dyspnea Follow Up
Subjective:
Feels a little better, less short of breath, FiO2 weaned a bit, no chest pain, minimal productive cough, no coughing after eating or drinking, no abdominal pain
Review of Systems
General: Other (Per HPI)
Objective Data
Data Reviewed
Vital Signs / I&O:
Vital Signs
Temp Pulse Resp BP Pulse Ox
98.5 F 82 16 112/67 95
07/08/24 23:23 07/09/24 05:10 07/08/24 23:23 07/09/24 05:10 07/08/24 23:23
Intake and Output
07/08/24 07/09/24 07/10/24
06:59 06:59 06:59
Intake Total 480 / 480 780 / 780
Balance 480 / 480 780 / 780
SaO2: 95
Nasal Cannula flow liters per minute: 2
Physical Exam
General: Respiratory Distress (n) and Comfortable
HEENT: Normocephalic, Anicteric and Moist Mucous Membranes
Cardiovascular: Regular Rhythm
Respiratory: Wheeze (n), Crackles, Rhonchi (n), Non-Labored Respirations, Accessory Resp Muscle Use (n) and Stridor (n)
GI: Soft, Non Distended and Non Tender
Neurology: Awake, Alert and No Motor Deficits
Skin: Warm, Good Color, Cyanosis (n), Jaundice (n) and Rash
Labs/Micro/Reports
Lab Data
07/08/24 06:57
07/08/24 06:57
[2024-07-09 07:30] VITALS: BP 91/46
[2024-07-09] MEDS: SYMBICORT 160/4.5 MCG INHALER 2 PUFF INH ×2 (08:19→19:51)
[2024-07-09] MEDS: PLAVIX 75 MG PO (08:34)
[2024-07-09] MEDS: KCL 20 MEQ PO (08:34)
[2024-07-09] MEDS: HEPARIN 5000 UNITS SC ×2 (08:34→20:54)
[2024-07-09] MEDS: VIBRAMYCIN 100 MG PO ×2 (08:35→20:51)
[2024-07-09] MEDS: NAMENDA 10 MG PO ×2 (08:35→20:53)
[2024-07-09] MEDS: ZANAFLEX 2 MG PO ×2 (08:35→20:51)
[2024-07-09] MEDS: ANTIVERT 25 MG PO ×2 (08:35→20:52)
[2024-07-09] MEDS: LIPITOR 80 MG PO (08:35)
[2024-07-09] MEDS: COGENTIN 2 MG PO (08:35)
[2024-07-09] MEDS: PROTONIX 40 MG PO ×2 (08:35→20:51)
[2024-07-09] MEDS: XANAX 0.5 MG PO ×2 (08:40→20:54)
[2024-07-09] MEDS: DIOVAN PO (08:45)
--- NOTE | 2024-07-09 09:00 | CM ---
met with patient at bedside.patient lives with SO,daughter and dght's in house with 3 uri,her bed and bath is on the first level,she ambulates I,is I with her adl.patient has never had a vn or been to ip rehab.
PCP: dr gonzalez Pharmacy:[facility] in [place]
PMH:asthma,htn,hld,niddm,cva,cognitive impairment,pulmonary nodule
Patient is adm with pna-possibe asp pna,cont iv rocephin,po doxy,duoneb,vicodin.she is sating 95% on 1 liter o2.sje does nothave home oxygen.patient has declined a vn.await pt/ot marlon,await vse.Plan:home with no needs .
[2024-07-09 11:09] LABS: % Basophils 0.1 % (0-2); % Eosinophils 0.2 % (0-6); % Immature Granulocytes 0.5 % (0-0.5); % Lymphocytes 5.1 % (20.5-51.1); % Neutrophils 92.1 % (42.2-75.2); Absolute Immature Granulocytes 0.1 10^3/uL (0-0.05); Absolute Lymphocytes 0.9 10^3/uL (1.2-3.4); Absolute Monocytes 0.3 10^3/uL (0.1-0.6); Absolute Neutrophils 15.6 10^3/uL (1.4-6.5); Hematocrit 32.1 % (37.0-47.0); Hemoglobin 10.5 g/dL (12.0-16.0); Mean Corp Hgb Conc. 32.7 g/dL (33.0-37.0); Mean Corpuscular Hgb 30.4 pg (27.0-31.0); Mean Platelet Volume 9.7 fL (7.4-10.4); Nucleated Red Blood Cells % 0 %; Platelet Count 170 10^3/uL (130-400); Red Blood Cell Count 3.45 10^6/uL (4.20-5.40); Red Cell Dist. Width 14.1 % (11.5-14.5); White Blood Cell Count 16.9 10^3/uL (4.8-10.8)
[2024-07-09] MEDS: COGENTIN 1 MG PO ×2 (11:39→16:59)
--- NOTE | 2024-07-09 12:56 | W.PN.HOSP.TC ---
Today's Communication/Plan
-
VSE tomorrow
recheck labs in AM
Assessment / Plan
Assessment / Plan
Acute Left Lower Lung Pneumonia
appears better, WBC 25.4-->26.2-->16.9
input of pulm appreciated
She had a VSE 12/2022 and 03/2024 that did not demonstrate aspiration, though recurrent aspirations would explain clinical situation. Will repeat, scheduled for 07/10
Hospitalized 03/22-03/25/24 with [facility]
Hx of asthma
essential HTN
HLD
NIDDM
Hx of CVA
Cognitive impairment
GERD
P: empiric abx
Pulm consult
Duonebs
VSE
Pt concerned about Narcotic analgesic, will order Vicodin 7.5 mg prn
As per patient, she is a DNR
Anticipated Discharge: 24 - 48 hours
Subjective/Interval History
-
Date of Service: July 09, 2024
Voice is stronger, appears less toxic
Objective Data
-
Labs:
Laboratory Results
07/09/24
07:50
WBC 16.9 H
Hgb 10.5 L
Hct 32.1 L
Plt Count 170
Vital Signs:
Vital Signs
Temp Pulse Resp BP Pulse Ox
97.7 F 80 16 91/46 95
07/09/24 07:30 07/09/24 08:22 07/09/24 08:22 07/09/24 08:45 07/09/24 08:22
I&O
07/08/24 07/09/24 07/10/24
06:59 06:59 06:59
Intake Total 480 / 480 780 / 780
Balance 480 / 480 780 / 780
Review of Systems
-
History Source: Patient and Coordinated Provider
Constitutional: Denies Fever
EENT: Reports No Symptoms Reported
Respiratory: Reports Cough and Trouble Breathing
Cardiac: Reports No Symptoms; Denies Chest Pain
Genitourinary: Reports No Symptoms
Neuro: Reports No Symptoms
Physical Exam
-
General: Well Developed, Well Nourished and Appears Chronically Ill
HEENT: Normocephalic, Atraumatic and Moist Mucous Membranes
Respiratory: Rales (rales today noted only on left side); Negative Clear to Auscultation (much clearer with minimal rales left base only)
Cardiac: Regular Rhythm and S1/S2
Breast: Deferred by me
GI: Soft, Nontender and Nondistended
Musculoskeletal: No Clubbing, No Cyanosis and No Edema
Neuro: Awake, Alert and Oriented
[2024-07-09 16:00] VITALS: BP 129/74
[2024-07-09] MEDS: FLEXERIL 10 MG PO (20:51)
[2024-07-09] MEDS: ARICEPT 10 MG PO (20:53)
[2024-07-09] MEDS: REMERON 45 MG PO (20:53)
[2024-07-09] MEDS: STERILE WATER FOR INJECTION 10 ML IV (20:55)
[2024-07-09] MEDS: PEPCID 40 MG PO (20:55)
[2024-07-09] MEDS: ROCEPHIN 1000 MG IV (20:55)
[2024-07-09 23:00] VITALS: BP 116/67
[2024-07-10] MEDS: NORCO 7.5/325 1 TABLET PO ×3 (01:12→16:37)
[2024-07-10 06:00] VITALS: BMI 30.4
[2024-07-10] MEDS: FLAGYL 500 MG 100 IV ×2 (06:24→14:26)
[2024-07-10] MEDS: SYNTHROID 50 MCG PO (06:24)
[2024-07-10 07:51] VITALS: BP 141/84
[2024-07-10 08:11] LABS: % Basophils 0.3 % (0-2); % Eosinophils 1.2 % (0-6); % Immature Granulocytes 0.5 % (0-0.5); % Lymphocytes 12.9 % (20.5-51.1); % Monocytes 3.9 % (1.7-9.3); % Neutrophils 81.2 % (42.2-75.2); Absolute Eosinophils 0.1 10^3/uL (0-0.7); Absolute Lymphocytes 0.9 10^3/uL (1.2-3.4); Absolute Monocytes 0.3 10^3/uL (0.1-0.6); Absolute Neutrophils 5.4 10^3/uL (1.4-6.5); Hematocrit 32.6 % (37.0-47.0); Hemoglobin 10.6 g/dL (12.0-16.0); Mean Corp Hgb Conc. 32.5 g/dL (33.0-37.0); Mean Corpuscular Volume 89.3 fL (81.0-99.0); Mean Platelet Volume 9.6 fL (7.4-10.4); Nucleated Red Blood Cells % 0 %; Platelet Count 190 10^3/uL (130-400); Red Blood Cell Count 3.65 10^6/uL (4.20-5.40); Red Cell Dist. Width 13.5 % (11.5-14.5); White Blood Cell Count 6.7 10^3/uL (4.8-10.8)
--- NOTE | 2024-07-10 08:15 | PTOTSP ---
Speech Language Pathology
VIDEOFLUOROSCOPIC SWALLOWING EXAMINATION (VSE) completed. Mild oral dysphagia. Pharyngeal phase of swallow WFL. No penetration/aspiration noted during study. Esophageal sweep demonstrated residue without backflow.
Pt with recurrent PNA, but largely functional oropharyngeal swallow noted. Question whether related to esophagus. Pt is aware that recommendation after VSE in March was for GI consult. She has an appointment at the end of this month.
Recommend:
(1) Regular solids/thin liquids with pt choosing softer items
(2) General aspiration precautions
(3) Esophageal precautions
(4) Meds as tolerated
(5) RECLAMATION KETTLE TENDER to sign off. Please reconsult as indicated
[2024-07-10] MEDS: SYMBICORT 160/4.5 MCG INHALER INH (08:20)
--- NOTE | 2024-07-10 08:35 | W.PN.HOSP.TC ---
Today's Communication/Plan
-
Discharge today
Assessment / Plan
Assessment / Plan
Physical Exam
General: Well Developed, Well Nourished and Appears Chronically Ill
HEENT: Normocephalic, Atraumatic and Moist Mucous Membranes
Respiratory: CTAB
Cardiac: Regular Rhythm and S1/S2
Breast: Deferred by me
GI: Soft, Nontender and Nondistended. Positive bowel sounds.
Musculoskeletal: No Cyanosis and No Edema
Neuro: Awake, Alert and Oriented
Assessment/Plan
Community-acquired pneumonia with recent hospitalization-aspiration suspected
Aspiration risk
UTI -- Urine culture + E coli
Leukocytosis - RESOLVED
input of pulm appreciated
She had a VSE 12/2022 and 03/2024 that did not demonstrate aspiration, though recurrent aspirations would explain clinical situation. Will repeat, scheduled for 07/10
Follow-up with GI outpatient
Okay to discharge on Augmentin and Doxycycline; spoke with pulmonary on-call regarding this
Hospitalized 03/22-03/25/24 with [facility]
Hx of asthma
essential HTN
HLD
NIDDM
Hx of CVA
Cognitive impairment
GERD
VSE: Per Speech Pathologist on 07/10/24: 'VSE completed on this pt. Rec regular solids/thin liquids (with pt choosing softer items given dentition). Rec GI when VSE was completed here in March, and pt has GI as outpatient scheduled end of this month.
Speech to sign off. Thanks'
As per patient, she is a DNR
More than 30 minutes spent in discharge including
Final examination of the patient
Summarizing hospital stay
Instructions for continuing care to all relevant caregivers
Preparation of discharge records, prescriptions, and referral forms
Total time spent (in minutes): 40
Anticipated Discharge: Today
Subjective/Interval History
-
Date of Service: July 10, 2024
Patient was seen and examined. She was doing okay, denied any new significant symptoms or complaints.
Objective Data
-
Labs:
Laboratory Results
07/10/24
07:37
WBC 6.7
Hgb 10.6 L
Hct 32.6 L
Plt Count 190
Sodium Pending
Potassium Pending
Chloride Pending
Carbon Dioxide Pending
BUN Pending
Creatinine Pending
Glucose Pending
Calcium Pending
Total Bilirubin Pending
AST Pending
ALT Pending
Alkaline Phosphatase Pending
Vital Signs:
Vital Signs
Temp Pulse Resp BP Pulse Ox
98 F 72 18 141/84 96
07/10/24 07:51 07/10/24 07:51 07/10/24 07:51 07/10/24 07:51 07/10/24 07:51
I&O
07/09/24 07/10/24 07/11/24
06:59 06:59 06:59
Intake Total 980 / 980 1140 / 1140
Balance 980 / 980 1140 / 1140
--- NOTE | 2024-07-10 09:24 | W.PN.PUL3 ---
Today's Communication / Plan
-
E. Coli UTI noted, pansensitive--can de-escalate abx to Augmentin (would also cover URI)
Stable on RA, no new complaints
VSE today, follow up speech recs for diet
Patient agreeable to discharge in next 24 hours
Follow up OP pulmonary with Dr Szymanski
Assessment
-
69-year-old female patient followed by Dr. Szymanski with suspected aspiration, pulmonary nodule, asthma, previous EVELINA, hypertension, hyperlipidemia who presented with increasing shortness of breath and cough felt to have pneumonia-pulmonary consulted
for pneumonia 07/08/2024.
Community-acquired pneumonia with recent hospitalization-aspiration suspected
Aspiration risk
UTI
Leukocytosis
Mild nlbtpo-fdtwzcondq-nuuespeifu 11.2
Mild hyperglycemia
Elevated LFTs including total bilirubin
Asthma-mild intermittent with no exacerbation
Chronic cough
DNR
Conditions present prior to admission:
Hospitalization March 2024-right lower lobe pneumonia-aspiration suspected
Asthma.
Pulmonary nodule.
Recurrent pneumonia-aspiration suspected
EVELINA resolved with weight loss.
Obesity/bariatric surgery.
Hypertension.
Hyperlipidemia.
Diabetes.
Hypothyroid.
History CVA.
Anxiety/depression/schizoaffective disorder.
Cognitive dysfunction.
GERD.
Vertigo.
Diverticulosis.
cholecystectomy. Right knee repair. Tonsillectomy. Carpal tunnel 11/2022. Cataract. Glaucoma. Hysterectomy.
Plan
Patient followed closely by Dr. Szymanski.
Patient has underlying asthma maintained on Symbicort and Xopenex as needed, he also treats for postnasal drip with Aurea, Astelin and Flonase-he ordered CT sinuses
Patient has frequent recurrent pneumonias and waxing and waning nodules suspected related to aspiration with underlying severe reflux/edentulous-ongoing problem after bariatric surgery
Radiographs, CT of the chest, CT of the sinuses, lower extremity ultrasound and pulmonary functions were reviewed and summarized below
Respiratory status improved
Supplemental oxygen as needed-currently on RA
Incentive spirometry encouraged
Aspiration precautions
Speech therapy/video swallow 03/2024 reviewed-regular diet with thin liquids
Has GI evaluation as an outpatient in the next 1 month
Mucolytic's
Antitussives continue
Nebulizers and inhalers as needed-on Symbicort and Xopenex nebulizers
Symbicort 160/4.5 continues
Steroids not indicated at this time
Check immunoglobulin levels with recurrent infections-not clear if aspiration
VSE today
Speech to follow up further management of diet/PO intake
Cultures reviewed
Urine culture + E coli, on abx
Unable to produce sputum for culture
Broad-spectrum antibiotics-on ceftriaxone, and metronidazole
Doxycycline added for atypical coverage
Follow radiographically
Monitoring leukocytosis
Follow hemoglobin-currently 10.5
Transfuse if needed
Monitor blood sugar
Insulin supplementation as needed
DVT prophylaxis-on heparin
GI prophylaxis-on pantoprazole as well as famotidine
Nutrition with aspiration precautions
Early mobilization
Patient was last seen by Dr. Szymanski 03/07/2024 and has a follow-up appointment 04/05/2024 at 4:15 PM
Diagnostic data:
CXR 10/29/22: New areas of linear interstitial airspace disease in the right middle lobe and basilar portion of the left lower lobe suggesting interstitial pneumonia/bronchiolitis
Chest x-ray 03/02/2024-��NAD
Chest x-ray 03/22/20246950-pyvzs-zkajr pneumonia, no large parapneumonic effusion is appreciated
Chest x-ray 07/07/2024-left lower lobe pneumonia
CT chest 04/24/2024-resolution of right pneumonia, low lung volumes with scattered bilateral subsegmental atelectasis, stable 7 mm solid pulmonary nodule
CT scan08/09/2023: Reviewed,Jermaine Stanley 08/24/2023 08:54:12 AM >��1. Stable left lisa-fissural nodule, likely benign.2.� Interval resolution of previously seen left upper lobe groundglass densities.�������
CXR 05/16/2023: Right upper lobe pneumonia appears unchanged. Linear foci in the left lower lobe may be subsegmental atelectasis.�������
CT chest 04/12/2023: Previous opacity/pneumonia in the right lower lobe has resolved. Mild scarring versus atelectasis in the mid to lower lung zones. A perifissural nodule in the left mid to lower lung zone has remained stable. Multiple subtle
groundglass nodular opacities have developed in the left upper lobe measuring up to 8.4 mm.�
VSE 01/12/2023: Upper laryngeal penetration. No aspiration.��
CT chest 01/10/2023:showed no evidence for central pulmonary embolism. Patchy right lower lobe opacification, most likely pneumonia. Prominence of pulmonary interstitium some vague groundglass opacities bilaterally, sparing the Overload. Mild chronic
fiber changes.�������
CT chest01/10/2023: showed no evidence for acute pulmonary embolism.Right lower lobe airspace disease, likely pneumonia, new compared to November 2022. Mild bilateral groundglass opacities.Stable left lower lobe pulmonary nodule.��������-��������
CT chest 2022:Reviewed, showed 8 mm pleural-based pulmonary nodule slightly increased compared to prior examinations.��������������
CT chest 05/08/2022: Solid pleural-based 8 mm left lower lobe pulmonary nodule. Appearance of slight increase in size. However this can be due to the location and the slice image. Moderate right upper lobe and right lower lobe atelectasis versus
scarring. Mild lingular and right middle lobe atelectasis versus scarring. Gallbladder has been removed.
CT sinus 03/14/2024-unremarkable CT of the sinuses
Lower extremity ultrasound 03/22/2024-no evidence for DVT
PFT 08/24/2023-FEV1 2.16-86%, FVC 2.78-84%, TLC 76%, RV 55%, DLCO 72%, DLCO/VA 89%
Subjective Data
-
Date of Service:
Date of Service: July 10, 2024
Chief Complaint: Pulmonary Follow Up and Dyspnea Follow Up
Subjective:
No acute events ON, remains stable on RA
No new complaints
VSE today
Objective Data
Data Reviewed
Vital Signs / I&O / Oxygen:
Vital Signs
Temp Pulse Resp BP Pulse Ox
98 F 72 18 141/84 96
07/10/24 07:51 07/10/24 07:51 07/10/24 07:51 07/10/24 07:51 07/10/24 07:51
Intake and Output
07/09/24 07/10/24 07/11/24
06:59 06:59 06:59
Intake Total 980 / 980 1140 / 1140
Balance 980 / 980 1140 / 1140
SaO2 96
Nasal Cannula flow liters per 1
minute
Physical Exam
General: Respiratory Distress (n) and Comfortable
HEENT: Normocephalic, Anicteric and Moist Mucous Membranes
Cardiovascular: Regular Rhythm
Respiratory: Clear, Wheeze (n), Rhonchi (n), Non-Labored Respirations, Accessory Resp Muscle Use (n) and Stridor (n)
GI: Soft, Non Distended and Non Tender
Neurology: Awake, Alert, AO x 3 and No Motor Deficits
Skin: Warm, Good Color, Cyanosis (n), Jaundice (n) and Rash
Labs/Micro/Reports
Lab Data
07/10/24 07:37
Microbiology
07/08/24 11:37 Urine Urine Culture - Final
Escherichia coli
[2024-07-10] MEDS: LIPITOR 80 MG PO (09:41)
[2024-07-10] MEDS: VIBRAMYCIN 100 MG PO (09:41)
[2024-07-10] MEDS: PROTONIX 40 MG PO (09:41)
[2024-07-10] MEDS: ZANAFLEX 2 MG PO (09:41)
[2024-07-10] MEDS: ANTIVERT 25 MG PO (09:42)
[2024-07-10] MEDS: VITAMIN B-12 1000 MCG PO (09:42)
[2024-07-10] MEDS: KCL 20 MEQ PO (09:42)
[2024-07-10] MEDS: HEPARIN 5000 UNITS SC (09:42)
[2024-07-10] MEDS: PLAVIX 75 MG PO (09:42)
[2024-07-10] MEDS: NAMENDA 10 MG PO (09:42)
[2024-07-10] MEDS: DIOVAN 20 MG PO (09:44)
[2024-07-10] MEDS: COGENTIN 2 MG PO (09:44)
[2024-07-10 09:49] LABS: ALT (SGPT) 27 U/L (0-35); AST (SGOT) 24 U/L (14-36); Albumin 3.4 g/dl (3.5-5.0); Alkaline Phosphatase 99 U/L (38-126); Blood Urea Nitrogen 10 mg/dl (7-17); Calcium 9.4 mg/dl (8.4-10.2); Carbon Dioxide 19 mmol/L (22-30); Chloride 104 mmol/L (98-107); Estimated Creatinine Clearance 86 ml/min; Glucose 107 mg/dl (70-99); Sodium 139 mmol/L (135-145); Total Bilirubin 0.5 mg/dl (0.2-1.3); Total Protein 5.8 g/dl (6.3-8.2); eGFR > 60.00
[2024-07-10] MEDS: COGENTIN 1 MG PO ×2 (11:29→16:37)
[2024-07-10 15:00] VITALS: BP 150/76
[2024-07-10 16:12] LABS: IgA 226 mg/dl (70-400); IgG 607 mg/dl (700-1600); IgM 96 mg/dl (40-230)
[2024-07-10] MEDS: XOPENEX HFA 45 MCG INHALER 2 PUFF INH (16:13)
--- NOTE | 2024-07-10 16:26 | W.DCSUMMARY ---
Discharge Summary
Discharge Data
Date of Admission: 07/07/24
Date of Discharge: 07/10/24
Total time spent discharging patient (in min): 40
-
Pending Results: No
Hospital Course
69-year-old female with history of suspected aspiration, pulmonary nodule, asthma, previous EVELINA, hypertension, hyperlipidemia who presented with increasing shortness of breath and cough. She was started on antibiotics for pneumonia, and pulmonary
was consulted. Patient had a video swallow exam and based on the results of that study, it was recommended that patient continue regular solids/thin liquids (with patient choosing softer items given dentition). Patient was also suspected to have E.
coli urinary tract infection. Patient would need to follow-up with gastroenterology as scheduled.
Discharge Plan
-
Patient Disposition: Home (Routine Discharge)
Discharge Diagnosis/Procedures: Community-acquired pneumonia with recent hospitalization-aspiration suspected
History of Pneumonia
Aspiration risk
UTI -- Urine culture + E coli
Leukocytosis - RESOLVED
History of asthma
Essential Hypertension
Hyperlipidemia
Diabetes Mellitus
History of Cerebrovascular Accident
Cognitive impairment
Gastroesophageal Reflux Disease
Condition: Fair
Diet: As tolerated
Additional Diets: Thin Liquids -- liquids should be thin liquids
Activity: As tolerated
Referrals:
Jermaine Bueno MD [Active] - (Has appointment 08/14/2024 at 10 AM)
Torrie Arizmendi MD [Family Provider] - in two to three days (Hospital Follow-up)
Additional Discharge Medication Instructions: Amoxicillin-Clavulanate and Doxycycline are new medications.
Prescriptions:
New
doxycycline hyclate 100 mg Capsule
100 mg PO Q12 Qty: 6 0RF
amoxicillin-pot clavulanate 875-125 mg tablet
1 tab PO Q12H Qty: 7 0RF
Continued
famotidine 40 MG tablet
40 mg PO HS
atorvastatin 80 mg Tablet
80 mg PO DAILY
clopidogrel 75 mg Tablet
75 mg PO DAILY
pantoprazole [Protonix] 40 mg Tablet,Delayed Release (Dr/Ec)
40 mg PO BID
benzonatate 200 mg Capsule
200 mg PO TIDPRN PRN (Reason: cough)
donepezil 10 mg Tablet
10 mg PO HS
sennosides-docusate sodium 8.6-50 mg Tablet
3 tab-cap PO HS Qty: 0
meclizine 12.5 mg Tablet
25 mg PO BID
levothyroxine 50 mcg Tablet
50 mcg PO DAILY
mirtazapine 45 mg Tablet
45 mg PO HS
valsartan 40 mg Tablet
20 mg PO DAILY
levalbuterol tartrate [Xopenex HFA] 45 mcg/actuation Hfa Aerosol Inhaler
2 inh INHALATION R Q6HPRN PRN (Reason: sob) Qty: 0
ZTlido 1.8 % Adhesive Patch,Medicated
3 patch TOPICAL DAILYPRN PRN (Reason: b/l knee,hip and/or lower back)
Rx Instructions:
UP TO 3 patches a day max on at HS off in am
benztropine 1 mg Tablet
1 mg PO BID@1200,2000
cyclobenzaprine 10 mg Tablet
10 mg PO HS
cyanocobalamin (vitamin B-12) 1,000 mcg Tablet
1,000 mcg PO Q48H
hydrocodone-acetaminophen 10-325 mg Tablet
1 tab PO Q6H PRN (Reason: severe pain)
Patient Comments:
07/13/2023: last filled 07/02/23, 120 tabs for 30 days from [facility]
ergocalciferol (vitamin D2) 1,250 mcg (50,000 unit) Capsule
1,250 mcg PO WE
ondansetron 4 mg Tablet,Disintegrating
4 mg PO BIDPRN PRN (Reason: nausea)
memantine 10 mg tablet
10 mg PO BID
lidocaine-prilocaine 2.5-2.5 % Cream
1 applic TOPICAL Q8HPRN PRN (Reason: breakthrough mild pain )
Rx Instructions:
apply to bilateral knees, bilateral hips and lower back
tizanidine 2 mg tablet
2 mg PO BID
furosemide 40 MG tablet
80 mg PO TUSA
Rx Instructions:
take 80 mg TU, Sat
Take 40 mg M, , , WED,
budesonide-formoterol [Symbicort] 160-4.5 mcg/actuation Hfa Aerosol Inhaler
2 inh INHALATION R BID
fluticasone propionate 50 mcg/actuation [place],Suspension
1 spray INTRANASAL BID
cranberry 500 mg Capsule
4,200 mg PO BID
pregabalin [Lyrica] 25 mg Capsule
25 mg PO TIDPRN PRN (Reason: neuropathy)
sucralfate 1 gram tablet
1 g PO BIDPRN PRN (Reason: stomach ulcer)
alprazolam 0.5 mg Tablet
0.5 mg PO QID PRN (Reason: Mental Health/Anxiety) Qty: 0 0RF
Patient Comments:
07/13/2023: last filled 07/13/23, 120 tabs for 30 days from [facility]
potassium chloride [Klor-Con M20] 20 mEq Tablet,Er Particles/Crystals
20 meq PO
benztropine 2 mg Tablet
1 mg PO BID
calcium-vitamin D3-vitamin K 500 mg-100 unit -40 mcg Tablet,Chewable
1 tab DAILY
Discharge Orders:
Discharge Patient (As Directed); Ordered 07/10/24
Ordered By: Jeremy Nails
Discharge Date and Time
Discharge Date/Time: 07/10/24 17:32
Print Language: SETSWANA
[2024-07-10 16:33] VITALS: O2SAT 90; O2SAT 96
--- NOTE | 2024-07-10 16:37 | CM ---
MD entered order for discharge.
Spoke with pt in room. She said her brother Orestes will drive her home.
She is weaned to room air .
Offered VN she declined need.
PLAN Home no needs
--- NOTE | 2024-07-11 14:18 | PN.CDI ---
CDI
- -
CDI:
Physician Documentation Request
Admit Date: 07/07/24 19:43
Dear Doctor Jaqui
Please review the following and provide your response in the progress notes.
Clinical Indicators:
H@P Left lower lobe pneumonia
PN 07/08 Acute Left Lower Lung pneumonia
PN 07/10 Community-acquired pneumonia with recent hospitalization-aspiration suspected
patient has frequent recurrent pneumonias and waxing and waning nodules suspected related to aspiration with underlying severe reflux/edentulous-ongoing problem after bariatric surgery
Video Fluoro Swalllow Exam: No fluoroscopic evidence for airway aspiration
Based on the above, could you clarify in the Progress Notes further specificity regarding the known, suspected or likely type of pneumonia you are treating (recognizing the specific organism may not be known)?
Examples
Aspiration Pneumonia - indicate substance such as food or vomitus, oils or other solids or liquids
Community acquired Pneumonia
Other type
Use of terms such as suspected, likely, concern for, or probable (associated with a specific diagnosis that is being evaluated, monitored, or treated as if it exists) are acceptable and can be coded in the inpatient setting, when documented at the
time of discharge.
Thank you,
Sienna Crowe
[facility] Inpatient
Please use your independent medical judgment in providing your response.
== END 2024-07-10 17:32 | disposition home or self-care (01) | DRG 178 ==
LOC: 3 WEST ACU 19:43
PROVIDERS: ADMITTING PHYSICIAN Internal Medicine; ATTENDING PHYSICIAN Hospitalist; CONSULT PHYSICIAN Internal Medicine Critical Care Medicine; EMERGENCY PHYSICIAN Emergency Medicine; FAMILY PHYSICIAN Student in an Organized Health Care Education/Training Program
DX: J69.0 Pneumonitis due to inhalation of food and vomit (principal); N39.0 Urinary tract infection, site not specified; J45.20 Mild intermittent asthma, uncomplicated; Z66 Do not resuscitate; E03.9 Hypothyroidism, unspecified; I10 Essential (primary) hypertension; E78.00 Pure hypercholesterolemia, unspecified; E11.65 Type 2 diabetes mellitus with hyperglycemia; K21.9 Gastro-esophageal reflux disease without esophagitis; B96.20 Unspecified Escherichia coli [E. coli] as the cause of diseases classified elsewhere; I25.2 Old myocardial infarction; M06.9 Rheumatoid arthritis, unspecified; D64.9 Anemia, unspecified; F41.9 Anxiety disorder, unspecified; F32.A Depression, unspecified; F25.9 Schizoaffective disorder, unspecified; G31.84 Mild cognitive impairment of uncertain or unknown etiology; E66.9 Obesity, unspecified; Z68.30 Body mass index [BMI] 30.0-30.9, adult; Z87.01 Personal history of pneumonia (recurrent); Z88.8 Allergy status to other drugs, medicaments and biological substances; Z86.73 Personal history of transient ischemic attack (TIA), and cerebral infarction without residual deficits; Z79.02 Long term (current) use of antithrombotics/antiplatelets; Z79.890 Hormone replacement therapy; Z79.51 Long term (current) use of inhaled steroids; Z79.899 Other long term (current) drug therapy; Z98.84 Bariatric surgery status
CPT/HCPCS: 71046; 74230; 80048; 80053; 81003; 81015; 82784; 83880; 84484; 85025; 85027; 87077; 87086; 87186; 92610; 92611; 93005; 94640; 94761; 96374; 99285

== ENCOUNTER 2024-07-23 12:51 | Inpatient (IN) | payer OTHER, SELFPAY ==
[2024-07-23] VITALS (8 sets, daily range): BP systolic 101–149; BP diastolic 41–64; BMI 30.1; BMI 29.2
--- NOTE | 2024-07-23 09:11 | ED.GENMED ---
History of Present Illness
General
Chief Complaint: Breathing Problem
Source: patient
Time Seen by Provider: 07/23/24 09:02
History of Present Illness
History of Present Illness:
69-year-old female with past medical history of previous CVA, COPD/asthma, HTN, HLD, NIDDM presenting to the emergency department for evaluation of nonproductive cough, shortness of breath and stating her oxygen has been dropping into the low 80s
since yesterday reminiscent of when she was admitted here for pneumonia about 3 to 4 weeks ago. She did use her albuterol inhaler this morning with only some relief but symptoms shortly returned. Patient was unaware of any fevers at home despite
having a 100.2 temperature here. She reports completing medications following her discharge about a month ago. Patient follows with pulmonary, Dr. Szymanski.
Past History
Past History
ED Past Medical History: Asthma, CVA, HTN, Hypercholesterolemia, NIDDM, [place] and Psychiatric
ED Past Surgical History: Cholecystectomy, Gynecological (Hysterectomy), Orthopedic (right knee replacement) and Other (Gastric bypass)
Social History
Tobacco: Non-smoker
Alcohol: None
Drug: None
Personal:
Living: alone
Employment: Disabled
Family History
Family History: Asthma
Review of Systems
Review of Systems
All Other Systems: ROS reviewed and negative except as documented in HPI and ROS
Phy Exam
Physical Exam
Physical Exam:
GENERAL: Alert , in no apparent distress
HEAD: NCAT
EYE: conjunctiva clear
NECK: Supple
ENT: o/p clr, mmm.
CARDIAC: Regular rate and rhythm
LUNGS: Rales left mid lung, diminished to left mid lung and left base, no wheezing/ronchi
NEUROLOGICAL: Alert and oriented
SKIN: Warm and dry, skin intact.
MUSCULOSKELETAL: well perfused. no edema
PSYCH: Normal and appropriate interaction.
Scores
Heart Failure Risk
Heart Failure Risk Score: Not Applicable
Heart Score for Chest Pain Patients
STEMI patient?: Not applicable
Withdrawal Assessment of Alcohol
Withdrawal Assessment Completed?: Not applicable
Sepsis
Sepsis Screening
Sepsis Assessment: Sepsis Ruled Out
Sepsis Screen
Sepsis Screen: Sepsis Ruled Out
Date: 07/23/24
Time: 12:16
Course
Orders/Labs/Results
Orders:
Orders
07/23/24 09:11
CR Chest - 2 Views Urgent
Comment:
Reason For Exam: cough, COPD, fever, recent pneumonia
07/23/24 09:14
Acetaminophen [Tylenol] 650 mg PO NOW STA
07/23/24 09:36
Basic Metabolic Panel Urgent
Blood Culture Routine
ELINOR Source: Blood/Venous
Specimen Description:
Blood Culture Urgent
ELINOR Source: Blood/Venous
Specimen Description:
07/23/24 09:37
COVID-19 Antigen Urgent
Source: Nasal Swab
Complete Blood Count/With Diff Urgent
Lactic Acid Q4H
Comment: CANCEL 2nd LACTIC ACID IF 1st LACTIC ACID IS LESS THAN 2
NT-proBNP Urgent
Influenza A+B Rapid Molecular Urgent
ELINOR Source: Nasal Swab
Specimen Description:
07/23/24 10:35
Cefepime HCl [Maxipime] 2,000 mg IV NOW STA
07/23/24 10:51
Sterile Water [Sterile Water For Injection] 20 ml .ROUTE .STK-MED
07/23/24 10:57
Vancomycin [Vancocin] 2,000 mg 0.9% Sodium Chloride 500 ml [Nss] 500 ml IV NOW
07/23/24 13:15
Lactic Acid Q4H
Comment: CANCEL 2nd LACTIC ACID IF 1st LACTIC ACID IS LESS THAN 2
Abnormal Lab Results
07/23/24 07/23/24
09:36 09:37
Hct 36.8 L %
(37.0-47.0)
Absolute Lymphs (auto) 0.3 L 10^3/uL
(1.2-3.4)
Neutrophils % 91.7 H %
(42.2-75.2)
Lymphocytes % 4.5 L %
(20.5-51.1)
BUN 20 H mg/dl
(7-17)
Glucose 134 H mg/dl
(70-99)
07/23/24 09:37
07/23/24 09:36
Vital Signs
Initial and Last Documented VS:
Initial Vital Signs
Temp Pulse Resp Pulse Ox
100.2 F 106 18 92
07/23/24 08:44 07/23/24 08:44 07/23/24 08:44 07/23/24 08:44
Last Documented Vital Signs
Temp Pulse Resp BP Pulse Ox
100.2 F 102 24 149/60 89
07/23/24 08:44 07/23/24 09:45 07/23/24 09:30 07/23/24 09:00 07/23/24 09:45
MDM/Problems Addressed
Differential Diagnosis Includes:
pneumonia, covid, flu, CHF, COPD exacerbation
MDM/Problems Addressed:
69-year-old female presenting to the emergency department for evaluation of shortness of breath, cough and diminished O2 saturations at home. During exam patient's oxygen saturation between 90 and 93 noting that her baseline is usually 93%.
Patient did have some Rales left mid lung to left base. Based off of her chest x-ray in June patient did have a left lower lobe pneumonia. I do suspect there could be recurrence of patient's pneumonia. Patient is tachycardic and has a
borderline fever here. Lactic and cultures ordered given patient's recent hospitalization combined with her chronic medical conditions. I do anticipate admission
Chronic conditions affecting care: COPD
Acute Exacerbation and/or Progression of Chronic Illness: COPD
*Radiology
Radiology exam reviewed: preliminary read by ED provider (improved LLL pneumonia but not fully resolved)
*Pulse Oximetry
Patient hypoxic: yes
*Mainframe Consultant Interpretation
Rate: tachycardiac
Rhythm: sinus
*Critical Care Note
Total Time (30-74mins, 75-104mins- exclusive of procedures): Not Applicable
Data Reviewed
Review of Other/Old Records Reveals: Labs, Records and Discharge Summary
Patient Management
Discussion with other providers: Hospitalist
Escalation/DeEscalation of care consider admission/obs:
Patient with continued pneumonia on CXR. Given her PMH combined with hypoxia and fever will admit for IV abx. Possible HAP vs CAP. Maxipime and Vanco ordered. Hospitalist team accepts for continued evaluation and treatment
ED Attending Note
-
Portions of this chart may have been created with voice recognition software.� Occasional wrong word or��sound alike� substitutions may have occurred due to the inherent limitations of voice recognition software.
Discharge Plan
Departure
Patient Disposition: Admit
Date of Disposition: 07/23/24
Time of Disposition: 10:35
Presentation/result/management discussed w/ accepting MD/DO: Hospitalist
Discharge Problem:
Pneumonia
Prescriptions:
No Action
famotidine 40 MG tablet
40 mg PO HS
atorvastatin 80 mg Tablet
80 mg PO DAILY
clopidogrel 75 mg Tablet
75 mg PO DAILY
pantoprazole [Protonix] 40 mg Tablet,Delayed Release (Dr/Ec)
40 mg PO BID
benzonatate 200 mg Capsule
200 mg PO TIDPRN PRN (Reason: cough)
donepezil 10 mg Tablet
10 mg PO HS
sennosides-docusate sodium 8.6-50 mg Tablet
3 tab-cap PO HS Qty: 0
meclizine 12.5 mg Tablet
25 mg PO BIDPRN PRN (Reason: verigo)
levothyroxine 50 mcg Tablet
50 mcg PO DAILY
mirtazapine 45 mg Tablet
45 mg PO HS
valsartan 40 mg Tablet
20 mg PO DAILY
levalbuterol tartrate [Xopenex HFA] 45 mcg/actuation Hfa Aerosol Inhaler
2 inh INHALATION R Q6HPRN PRN (Reason: sob) Qty: 0
ZTlido 1.8 % Adhesive Patch,Medicated
3 patch TOPICAL DAILYPRN PRN (Reason: b/l knee,hip and/or lower back)
Rx Instructions:
UP TO 3 patches a day max on at HS off in am
benztropine 1 mg Tablet
1 mg PO BID@1200,2000
cyclobenzaprine 10 mg Tablet
10 mg PO HS
cyanocobalamin (vitamin B-12) 1,000 mcg Tablet
1,000 mcg PO Q48H
hydrocodone-acetaminophen 10-325 mg Tablet
1 tab PO Q6HPRN PRN (Reason: severe pain)
Patient Comments:
07/13/2023: last filled 07/02/23, 120 tabs for 30 days from [facility]
ergocalciferol (vitamin D2) 1,250 mcg (50,000 unit) Capsule
1,250 mcg PO WE
ondansetron 4 mg Tablet,Disintegrating
4 mg PO BIDPRN PRN (Reason: nausea)
memantine 10 mg tablet
10 mg PO BID
lidocaine-prilocaine 2.5-2.5 % Cream
1 applic TOPICAL Q8HPRN PRN (Reason: breakthrough mild pain )
Rx Instructions:
apply to bilateral knees, bilateral hips and lower back
tizanidine 2 mg tablet
2 mg PO BID
furosemide 40 MG tablet
80 mg PO TUSA
budesonide-formoterol [Symbicort] 160-4.5 mcg/actuation Hfa Aerosol Inhaler
2 inh INHALATION R BID
fluticasone propionate 50 mcg/actuation [place],Suspension
1 spray INTRANASAL BID
cranberry 500 mg Capsule
4,200 mg PO BID
pregabalin [Lyrica] 25 mg Capsule
25 mg PO TIDPRN PRN (Reason: neuropathy)
sucralfate 1 gram tablet
1 g PO BIDPRN PRN (Reason: stomach ulcer)
potassium chloride [Klor-Con M20] 20 mEq Tablet,Er Particles/Crystals
20 meq PO BID
benztropine 2 mg Tablet
1 mg PO BID
calcium-vitamin D3-vitamin K 500 mg-100 unit -40 mcg Tablet,Chewable
1 tab DAILY
furosemide [Lasix] 40 mg Tablet
40 mg PO SUMOWETHFR
alprazolam 0.5 mg tablet
0.5 mg PO QIDPRN PRN (Reason: Mental Health/Anxiety)
Patient Comments:
07/13/2023: last filled 07/13/23, 120 tabs for 30 days from [facility]
Referrals:
Torrie Arizmendi MD [Family Provider] -
Interventions
Interventions:
*Risk Screen - Suicide Last Done: 07/23/24 08:47
*General Assessment Last Done: 07/23/24 09:21
*Neglect/Abuse Screening Last Done: 07/23/24 08:47
ED- Fall Risk Assessment Last Done: 07/23/24 09:04
*ED COVID-19 Vaccine History Last Done: 07/23/24 09:21
ED- Cardiac Assessment Last Done: 07/23/24 09:04
ED- Pulmonary Assessment Last Done: 07/23/24 09:04
Discharge Date and Time
Print Language: LITHUANIAN
[2024-07-23] MEDS: TYLENOL 650 MG PO (09:19)
[2024-07-23 09:47] LABS: % Basophils 0.3 % (0-2); % Eosinophils 0.2 % (0-6); % Immature Granulocytes 0.5 % (0-0.5); % Lymphocytes 4.5 % (20.5-51.1); % Monocytes 2.8 % (1.7-9.3); % Neutrophils 91.7 % (42.2-75.2); Absolute Lymphocytes 0.3 10^3/uL (1.2-3.4); Absolute Monocytes 0.2 10^3/uL (0.1-0.6); Absolute Neutrophils 5.9 10^3/uL (1.4-6.5); Hematocrit 36.8 % (37.0-47.0); Hemoglobin 12.7 g/dL (12.0-16.0); Mean Corp Hgb Conc. 34.5 g/dL (33.0-37.0); Mean Corpuscular Hgb 30.1 pg (27.0-31.0); Mean Corpuscular Volume 87.2 fL (81.0-99.0); Mean Platelet Volume 8.8 fL (7.4-10.4); Nucleated Red Blood Cells % 0 %; Platelet Count 209 10^3/uL (130-400); Red Blood Cell Count 4.22 10^6/uL (4.20-5.40); Red Cell Dist. Width 13.8 % (11.5-14.5); White Blood Cell Count 6.4 10^3/uL (4.8-10.8)
[2024-07-23 10:02] LABS: Blood Urea Nitrogen 20 mg/dl (7-17); Carbon Dioxide 26 mmol/L (22-30); Chloride 100 mmol/L (98-107); Estimated Creatinine Clearance 76 ml/min; Glucose 134 mg/dl (70-99); Potassium 4.1 mmol/L (3.5-5.1); Sodium 136 mmol/L (135-145); eGFR > 60.00
[2024-07-23 10:03] LABS: Lactic Acid 1.7 mmol/L (0.7-2.0)
[2024-07-23 10:06] LABS: COVID-19 Antigen Negative (Negative)
[2024-07-23 10:11] LABS: NT-proBNP 86.9 pg/ml
[2024-07-23] MEDS: VANCOCIN 540 MG IV (11:16)
[2024-07-23] MEDS: MAXIPIME 2000 MG IV (11:17)
--- NOTE | 2024-07-23 12:40 | HPS.HSE ---
Family Physician
-
Family Physician: Torrie Arizmendi MD
Chief Complaint
-
cough, shortness of breath
History of Present Illness
69-year-old female past medical history of asthma,, suspected aspiration, obstructive sleep apnea, hypertension, hyperlipidemia, diabetes, CVA, cognitive impairment, GERD, hypothyroidism, anxiety/depression/schizoaffective disorder, diverticulosis,
vertigo, presenting for nonproductive cough, shortness of breath and hypoxemia with saturations in the low 80s since yesterday. Was febrile here without chills. She has some chest tightness and wheezing. She has nausea without vomiting. Denies
abdominal pain or diarrhea.
She was admitted here for pneumonia from 07/07 to 07/10 for pneumonia treated with antibiotics suspected to be from aspiration pneumonia. Patient had video swallow examination and was recommended to continue regular solids/thin liquids. She was also
suspected to have E. coli urinary tract infection.
Denies history of smoking. Denies alcohol use.
Medical History
Past Medical History
Past Medical History: Reports Psychiatric ( asthma,, suspected aspiration, obstructive sleep apnea, hypertension, hyperlipidemia, diabetes, CVA, cognitive impairment, GERD, hypothyroidism, anxiety/depression/schizoaffective disorder, diverticulosis,
vertigo)
Past Surgical History: Reports None
Social History
Tobacco: Non-smoker
Alcohol: None
Drug: None
Family History
Family History: Not pertinent
Allergies / Home Medications
Allergies reflects when Allergies were last updated in [facility].
Home Medications with original date entered in [facility]
Allergy/Medication List:
Allergies
Allergy/AdvReac Type Severity Reaction Status Date / Time
celecoxib [From Celebrex] Allergy Unknown Verified 07/07/24 15:00
hydrochlorothiazide Allergy Unknown Verified 07/07/24 15:00
NSAIDS (Non-Steroidal Allergy Gastric Verified 07/07/24 15:00
Anti-Inflamma Bypass
pregabalin [From Lyrica] Allergy Unknown Verified 07/07/24 15:00
promethazine Allergy Unknown Verified 07/07/24 15:00
zolpidem [From Ambien] Allergy Unknown Verified 07/07/24 15:00
Home Medications
famotidine 40 mg tablet 40 mg PO HS Gastrointestinal Issue 05/19/15
atorvastatin 80 mg tablet 80 mg PO DAILY High Cholesterol 01/10/23
benzonatate 200 mg capsule 200 mg PO TIDPRN PRN cough 01/10/23
clopidogrel 75 mg tablet 75 mg PO DAILY Blood Clot Prevention/Tx 01/10/23
donepezil 10 mg tablet 10 mg PO HS Mental Health/Anxiety 01/10/23
levalbuterol tartrate 45 mcg/actuation aerosol inhaler (Xopenex HFA) 2 inh inhalation R Q6HPRN PRN sob ##0 01/10/23
levothyroxine 50 mcg tablet 50 mcg PO DAILY Thyroid 01/10/23
lidocaine 1.8 % topical patch (ZTlido) 3 patch topical DAILYPRN PRN b/l knee,hip and/or lower back 01/10/23
meclizine 12.5 mg tablet 25 mg PO BIDPRN PRN verigo 01/10/23
mirtazapine 45 mg tablet 45 mg PO HS Mental Health/Anxiety 01/10/23
pantoprazole 40 mg tablet,delayed release (Protonix) 40 mg PO BID Gastrointestinal Issue 01/10/23
sennosides 8.6 mg-docusate sodium 50 mg tablet 3 tab-cap PO HS Constipation ##0 01/10/23
valsartan 40 mg tablet 20 mg PO DAILY Blood Pressure 01/10/23
benztropine 1 mg tablet 1 mg PO BID@1200,2000 extrapyrimadal symptoms 01/12/23
cyanocobalamin (vitamin B-12) 1,000 mcg tablet 1,000 mcg PO Q48H Supplement 05/14/23
cyclobenzaprine 10 mg tablet 10 mg PO HS Muscle Spasms 05/14/23
ergocalciferol (vitamin D2) 1,250 mcg (50,000 unit) capsule 1,250 mcg PO WE Supplement 05/14/23
hydrocodone 10 mg-acetaminophen 325 mg tablet 1 tab PO Q6HPRN PRN severe pain 05/14/23
lidocaine-prilocaine 2.5 %-2.5 % topical cream 1 applic topical Q8HPRN PRN breakthrough mild pain 05/14/23
memantine 10 mg tablet 10 mg PO BID Neurological Condition 05/14/23
ondansetron 4 mg disintegrating tablet 4 mg PO BIDPRN PRN nausea 05/14/23
furosemide 40 mg tablet 80 mg PO TUSA Fluid Retention/Swelling 07/13/23
tizanidine 2 mg tablet 2 mg PO BID Muscle Spasms 07/13/23
budesonide-formoterol HFA 160 mcg-4.5 mcg/actuation aerosol inhaler (Symbicort) 2 inh inhalation R BID Lung/Breathing Issues 10/08/23
cranberry 500 mg capsule 4,200 mg PO BID Supplement 03/22/24
fluticasone propionate 50 mcg/actuation nasal spray,suspension 1 spray intranasal BID Congestion 03/22/24
pregabalin 25 mg capsule (Lyrica) 25 mg PO TIDPRN PRN neuropathy 03/22/24
sucralfate 1 gram tablet 1 g PO BIDPRN PRN stomach ulcer 03/22/24
benztropine 2 mg tablet 1 mg PO BID EPS 07/07/24
calcium 500 mg-vitamin D3 100 unit-vitamin K 40 mcg chewable tablet 1 tab DAILY Supplement 07/07/24
potassium chloride 20 mEq tablet,extended release(part/cryst) (Klor-Con M) 20 meq PO BID Electrolyte Repletion 07/07/24
alprazolam 0.5 mg tablet 0.5 mg PO QIDPRN PRN Mental Health/Anxiety 07/23/24
furosemide 40 mg tablet (Lasix) 40 mg PO SUMOWETHFR 07/23/24
Review of Systems
-
History Source: Patient
A 12 point ROS was completed and negative except as noted: Yes
Constitutional: Reports No Symptoms
EENT: Reports No Symptoms
Respiratory: Reports See HPI
Cardiac: Reports See HPI
Abdomen/GI: Reports No Symptoms
: Reports No Symptoms
Musculoskeletal: Reports No Symptoms
Skin: Reports No Symptoms
Neurological: Reports No Symptoms
Endocrine: Reports No Symptoms
Hematologic/Lymphatic: Reports No Symptoms
Psych: Reports No Symptoms
Physical Exam
Vital Signs
Vital Signs
Temp Pulse Resp BP Pulse Ox
100.2 F 102 24 149/60 89
07/23/24 08:44 07/23/24 09:45 07/23/24 09:30 07/23/24 09:00 07/23/24 09:45
Physical Exam
General: Well Developed, Well Nourished and No Apparent Distress
HEENT: NormoCephalic, Moist mucous membranes and Atraumatic
Respiratory: Clear
Cardiac: S1/S2 and Regular Rhythm; No Murmur or Rub
GI: Soft, Non Tender, Non Distended and Normal Bowel Sounds; No Organomegaly
Rectal: Deferred by Provider
Musculoskeletal: No Clubbing, No Cyanosis and No Edema
Skin: No Rash
Neuro: Nonfocal/grossly intact
Laboratory Results
-
07/23/24 09:37
07/23/24 09:36
Laboratory Results
Lactic Acid 1.7 mmol/L (0.7-2.0) 07/23/24 09:37
Data Reviewed
-
Lab Data: Labs Reviewed by me
Old Records: Reviewed
Impression/Plan
-
IMPRESSION:
PLAN:
# Sepsis (fever, tachycardia, tachypnea) secondary to persistent left-sided pneumonia, possibly aspiration related
-Check blood culture
-Check sputum culture if able
-Check strep antigen, Legionella
-COVID-negative
-Check MRSA
-IV fluids, hold Lasix
-Vancomycin/Zosyn
-Mucinex instead of benzonatate
-Pulmonary consulted
Asthma
-No wheezing on examination, not in asthma exacerbation
-Continue Xopenex as needed
-Continue Symbicort
Obstructive sleep apnea
Essential hypertension
-Continue valsartan
Hyperlipidemia
-Continue statin
Type 2 diabetes
-Not on treatment
History of CVA
-Continue Plavix
Cognitive impairment
-Continue memantine, donepezil
GERD
-Continue sucralfate, Protonix, Pepcid
Hypothyroidism
-Continue levothyroxine
Anxiety/depression/schizoaffective disorder
-Continue alprazolam, mirtazapine
Diverticulosis
History of vertigo
-Continue meclizine as needed
-Continue benztropine
Chronic back/knee pain/arthritis
-Continue lidocaine patch, tizanidine, pregabalin, Vicodin
Chronic lower extremity
-Hold Lasix
DNR/DNI
DVT prophylaxis-heparin
Regular diet
[2024-07-23] MEDS: NSS 1000 IV (16:44)
[2024-07-23] MEDS: ZOSYN 50 IV (18:38)
--- NOTE | 2024-07-23 18:59 | PHA.VAN.IN ---
Assessment
- Assessment
Renal Function: Appears similar to baseline
Maximum Temperature: 100.2
Concomitant Antimicrobials: Piperacillin/Tazobactam
Plan
- Plan
Initial / Loading Dose: Vanco 2000mg Loading dose 07/23/24 11:16
Monitoring: Random level 07/24/24 AM
Pharmacokinetics Vancomycin I
- -
Patient Age: 69
Patient Sex: Female
Vancomycin Day #: 1
Indication: Pulmonary/Respiratory
Requesting Provider: Haritha
Pertinent Antimicrobial Allergies:
No known Antibiotic Allergies
Height / Weight:
Height 5 ft 6 in
Actual Weight 81.919 kg
Pertinent Past Medical History: DM, Pneumonia
- Vital Signs / Lab Results
Temp Pulse Resp BP Pulse Ox
99.8 F 95 16 122/64 95
07/23/24 16:18 07/23/24 16:18 07/23/24 16:18 07/23/24 16:18 07/23/24 16:18
Lab Results - Hematology
07/23/24
09:37
WBC 6.4
Lab Results - Chemistry
07/23/24
09:36
BUN 20 H
Creatinine 0.8
Estimated Creat Clear 76
07/23/24 07/23/24
09:37 13:15
Lactic Acid 1.7 Cancelled
Microbiology Results
07/23/24 09:37 Influenza Types A & B (DEL) - Final
Nasal Swab Negative for Influenza A & B, NAAT
Negative results must be combined with clinical observations
and patient history.
Nucleic Acid Amplification test (NAAT)performed on the
[employer] platform.
--- NOTE | 2024-07-23 19:25 | PTCARENOTE ---
received pt to 3W, oriented pt to room, assessment complete, IV fluids and abx running. Pt able to order dinner. Pt VSS complete, resting comfortably, follow care plan
[2024-07-23] MEDS: SYMBICORT 160/4.5 MCG INHALER 2 PUFF INH (20:36)
[2024-07-23] MEDS: PROTONIX 40 MG PO (20:39)
[2024-07-23] MEDS: COGENTIN 1 MG PO (20:40)
[2024-07-23] MEDS: NAMENDA 10 MG PO (20:40)
[2024-07-23] MEDS: ZANAFLEX 2 MG PO (20:40)
[2024-07-23] MEDS: HEPARIN 5000 UNITS SC (20:40)
[2024-07-23] MEDS: ARICEPT 10 MG PO (20:46)
[2024-07-23] MEDS: PEPCID 40 MG PO (20:46)
[2024-07-23] MEDS: SENOKOT-S 1 TABLET PO (20:46)
[2024-07-23] MEDS: FLEXERIL 10 MG PO (20:50)
[2024-07-23] MEDS: REMERON 45 MG PO (20:50)
[2024-07-23] MEDS: EMLA CREAM 5 GRAM TOPICAL (20:51)
[2024-07-23] MEDS: NORCO 7.5/325 1 TABLET PO (21:14)
[2024-07-23] MEDS: NON-FORMULARY ITEM 1 UNIT TOPICAL (21:31)
[2024-07-24] MEDS: ZOSYN 50 IV ×4 (00:05→20:01)
[2024-07-24] MEDS: NSS 1000 IV ×2 (03:55→18:21)
[2024-07-24] MEDS: NORCO 7.5/325 1 TABLET PO ×3 (03:58→22:56)
[2024-07-24] MEDS: SYNTHROID 50 MCG PO (05:46)
[2024-07-24] MEDS: EMLA CREAM 5 GRAM TOPICAL (05:50)
[2024-07-24 06:53] LABS: % Basophils 0.2 % (0-2); % Eosinophils 0.3 % (0-6); % Immature Granulocytes 0.4 % (0-0.5); % Monocytes 5.9 % (1.7-9.3); % Neutrophils 84.2 % (42.2-75.2); Absolute Lymphocytes 0.8 10^3/uL (1.2-3.4); Absolute Monocytes 0.6 10^3/uL (0.1-0.6); Absolute Neutrophils 7.8 10^3/uL (1.4-6.5); Hematocrit 30.8 % (37.0-47.0); Hemoglobin 10.2 g/dL (12.0-16.0); Mean Corp Hgb Conc. 33.1 g/dL (33.0-37.0); Mean Corpuscular Hgb 29.5 pg (27.0-31.0); Mean Platelet Volume 9.2 fL (7.4-10.4); Nucleated Red Blood Cells % 0 %; Platelet Count 190 10^3/uL (130-400); Red Blood Cell Count 3.46 10^6/uL (4.20-5.40); Red Cell Dist. Width 14.1 % (11.5-14.5); White Blood Cell Count 9.3 10^3/uL (4.8-10.8)
[2024-07-24 07:10] LABS: Vancomycin Random 8.1 ug/ml
[2024-07-24 07:16] LABS: ALT (SGPT) 24 U/L (0-35); AST (SGOT) 22 U/L (14-36); Albumin 2.6 g/dl (3.5-5.0); Alkaline Phosphatase 78 U/L (38-126); Blood Urea Nitrogen 15 mg/dl (7-17); Calcium 7.8 mg/dl (8.4-10.2); Carbon Dioxide 25 mmol/L (22-30); Chloride 102 mmol/L (98-107); Estimated Creatinine Clearance 98 ml/min; Glucose 130 mg/dl (70-99); Potassium 3.5 mmol/L (3.5-5.1); Sodium 136 mmol/L (135-145); Total Bilirubin 0.6 mg/dl (0.2-1.3); Total Protein 4.9 g/dl (6.3-8.2); eGFR > 60.00
[2024-07-24 07:35] VITALS: BP 120/65
[2024-07-24] MEDS: VITAMIN B-12 1000 MCG PO (07:41)
[2024-07-24] MEDS: LIPITOR 80 MG PO (07:41)
[2024-07-24] MEDS: ZANAFLEX 2 MG PO ×2 (07:41→20:00)
[2024-07-24] MEDS: PROTONIX 40 MG PO ×2 (07:41→20:00)
[2024-07-24] MEDS: PLAVIX 75 MG PO (07:41)
[2024-07-24] MEDS: NAMENDA 10 MG PO ×2 (07:41→20:00)
--- NOTE | 2024-07-24 07:41 | W.PN.HOSP.TC ---
Addendum entered and electronically signed by Ryan Matias MD 07/24/24 14:52:
sepsis, left sided pna
-procal ordered
-iv atb
-pulm
-video swallow
-mucinex
-aspiratioun precautions
dysphagia?
-speech and gi to see
Original Note:
Today's Communication/Plan
-
Assessment / Plan
Assessment / Plan
Ms. Avis Leslie is a 69yo F pmh prior CVA, COPD, asthma, HTN, HLD, NIDDM admitted 07/23 for pneumonia.
Sepsis secondary to persistent L-sided pneumonia, possibly aspiration related
- lactate wnl
- CXR: L lung patches concerning for pneumonia, improved. No pleural effusion or pneumothorax
- CT head: No acute intracranial abnormality noted, specifically no acute intracranial hemorrhage. 1.4 cm epidermal inclusion cyst within the right occipital soft tissues.
- speech and swallow (07/24): ok for regular diet
- blood cx pending
- IVF, vancomycin, zosyn
- mucinex
- aspiration precautions
- pulm, GI, neuro consulted
Asthma, COPD, EVELINA
- not in acute exacerbation
- cont symbicort, xopenex
HTN, HLD
- cont valsartan, statin
DM
- not on treatment
Hx CVA
- cont plavix
Cognitive impairment
-Continue memantine, donepezil
GERD
-Continue sucralfate, Protonix, Pepcid
Hypothyroidism
-Continue levothyroxine
Anxiety/depression/schizoaffective disorder
-Continue alprazolam, mirtazapine
- pt unable to reduce stress in life at this time due to family health issues
Diverticulosis
History of vertigo
-Continue meclizine as needed
-Continue benztropine
Chronic back/knee pain/arthritis
-Continue lidocaine patch, tizanidine, pregabalin, Vicodin
Chronic b/l lower extremity edema
-Hold Lasix
DVT prophylaxis
- subq heparin
Code status: DNR/DNI
Diet: regular
Anticipated Discharge: > 48 hours
Subjective/Interval History
-
Date of Service: July 24, 2024
Ms. Avis Leslie is a 69yo F pmh prior CVA, COPD, asthma, HTN, HLD, NIDDM admitted 07/23 for pneumonia. Recently hospitalized () for suspected aspiration pneumonia. Now, has a nonproductive cough, SOB, chest tightness, and 'bubbles crackling'
on her chest. Says it feels like there is something in her left lung that she cannot cough up.
Objective Data
-
Labs:
Laboratory Results
07/24/24
06:27
WBC 9.3
Hgb 10.2 L
Hct 30.8 L
Plt Count 190
Sodium 136
Potassium 3.5
Chloride 102
Carbon Dioxide 25
BUN 15
Creatinine 0.6
Glucose 130 H
Calcium 7.8 L
Total Bilirubin 0.6
AST 22
ALT 24
Alkaline Phosphatase 78
Vital Signs:
Vital Signs
Temp Pulse Resp BP Pulse Ox
98.5 F 72 14 101/50 96
07/23/24 23:00 07/23/24 23:00 07/23/24 23:00 07/23/24 23:00 07/23/24 23:00
I&O
07/23/24 07/24/24 07/25/24
06:59 06:59 06:59
Intake Total 480 / 480
Balance 480 / 480
Review of Systems
-
History Source: Patient
All other systems: Reviewed and negative
Constitutional: Reports Fever; Denies Chills
Respiratory: Reports Cough, Trouble Breathing and Other (chest tightness); Denies Wheezing
Cardiac: Denies Chest Pain or Palpitations
Abdomen/GI: Denies Abdominal Pain, Nausea, Vomiting, Diarrhea or Constipated
Neuro: Denies Dizzy or Weakness
Psych: Reports Other (stressed)
Physical Exam
-
General: Well Developed and Well Nourished
HEENT: Normocephalic and Atraumatic
Respiratory: Decreased Breath Sounds and Other (no crepitus); Negative Wheezes, Rales, Rhonchi or Crackles
Cardiac: Regular Rhythm and S1/S2; Negative Murmur, Rub or Gallop
GI: Soft, Nontender, Nondistended and Normal Bowel Sounds
Musculoskeletal: No Cyanosis and No Edema
Skin: Warm and Dry
[2024-07-24] MEDS: DIOVAN 20 MG PO (07:42)
[2024-07-24] MEDS: HEPARIN 5000 UNITS SC ×2 (07:42→19:59)
[2024-07-24] MEDS: SYMBICORT 160/4.5 MCG INHALER 2 PUFF INH ×2 (08:02→19:32)
--- NOTE | 2024-07-24 09:02 | PHA.VAN.FU ---
Vancomycin Assessment / Plan
- Assessment
Renal Function: Stable
WBC's are: WNL
In the past 24 hrs, patient has been: Afebrile
Concomitant Antimicrobials: piperacillin/tazobactam
- Assessment - Therapeutic Drug Monitoring
Random Level: 8.1 - drawn ~19H after 2g loading dose
- Dosing Plan
Adjust Regimen to: Vanc 1000mg Q12H - first dose now then 1800
New Regimen Predicts: AUC (424), Peak (27.1), Trough (10.6)
- Monitoring Plan
No level(s) ordered at this time: consider levels in next few days
MRSA Screen: Ordered per protocol
- Follow Up
Pharmacy will continue to follow.
Vancomycin Follow UP
- -
Patient Age: 69
Patient Sex: Female
Vancomycin Day #: 2
Indication: Pulmonary/Respiratory
Requesting Provider: Haritha
Pertinent Antimicrobial Allergies:
no pertinent antibiotic allergies
Height / Weight:
Height 5 ft 6 in
Actual Weight 81.919 kg
Pertinent Past Medical History: DM, Pneumonia
- Vital Signs / Lab Results
Temp Pulse Resp BP Pulse Ox
98.7 F 81 20 120/65 98
07/24/24 07:35 07/24/24 08:07 07/24/24 08:07 07/24/24 07:42 07/24/24 08:07
Lab Results - Hematology
07/23/24 07/24/24
09:37 06:27
WBC 6.4 9.3
Lab Results - Chemistry
07/23/24 07/24/24
09:36 06:27
BUN 20 H 15
Creatinine 0.8 0.6
Estimated Creat Clear 76 98
Albumin 2.6 L
07/23/24 07/23/24
09:37 13:15
Lactic Acid 1.7 Cancelled
Microbiology Results
07/23/24 09:37 Influenza Types A & B (DEL) - Final
Nasal Swab Negative for Influenza A & B, NAAT
Negative results must be combined with clinical observations
and patient history.
Nucleic Acid Amplification test (NAAT)performed on the
[employer] platform.
Therapeutic Drug Monitoring
Random Vancomycin 8.1 ug/ml 07/24/24 06:27
[2024-07-24] MEDS: VANCOCIN 200 IV ×2 (09:27→18:21)
--- NOTE | 2024-07-24 09:46 | CON.PUL ---
Consultation
Consultation Request
Date/Time Consultation Requested: 07/24/2024-7 AM
Date/Time Consultation Performed: 07/24/2024-7:30 AM
Requesting Provider: Hospitalist
Performing Provider: Dr. Tse
Reason for Consultation: Shortness of breath
Medical History
-
Chief Complaint: Chronic cough
History of Present Illness:
69-year-old with a history of asthma, suspected silent aspiration, obstructive sleep apnea, hypertension, hyperlipidemia, diabetes, CVA, cognitive impairment as well as anxiety/depression/schizoaffective disorder who presented with nonproductive
cough, shortness of breath and pulmonary consulted for chronic cough 07/24/2024.
Past Medical History
Past Medical History: None (Asthma. Pulmonary nodule. EVELINA resolved with weight loss. Obesity/bariatric surgery. Hypertension. Hyperlipidemia. Diabetes. Hypothyroid. History CVA. Anxiety/depression/schizoaffective disorder. Cognitive
dysfunction. GERD. Vertigo. Diverticulosis.)
Past Surgical History: None (Cholecystectomy. Right knee repair. Tonsillectomy. Carpal tunnel 2020 11/2022. Cataract. Glaucoma. Hysterectomy.)
Social History
Tobacco: Non-smoker
Alcohol: None
Drug: None
Occupational Exposures: No known asbestos exposure
Environmental Exposures: No known tuberculosis exposure
Family History
Family History: Other (Father-COPD. Mother-CVA and hypertension)
Allergies / Home Medications
Allergies
Allergy/AdvReac Type Severity Reaction Status Date / Time
celecoxib [From Celebrex] Allergy Unknown Verified 07/07/24 15:00
hydrochlorothiazide Allergy Unknown Verified 07/07/24 15:00
NSAIDS (Non-Steroidal Allergy Gastric Verified 07/07/24 15:00
Anti-Inflamma Bypass
pregabalin [From Lyrica] Allergy Unknown Verified 07/07/24 15:00
promethazine Allergy Unknown Verified 07/07/24 15:00
zolpidem [From Ambien] Allergy Unknown Verified 07/07/24 15:00
Home Medications
�Medication �Instructions �Recorded �Confirmed �Last Taken �Type
famotidine 40 mg tablet 40 mg PO HS Gastrointestinal Issue 05/19/15 07/23/24 07/22/24 History
atorvastatin 80 mg tablet 80 mg PO DAILY High Cholesterol 01/10/23 07/23/24 07/22/24 History
benzonatate 200 mg capsule 200 mg PO TIDPRN PRN cough 01/10/23 07/23/24 Unknown History
clopidogrel 75 mg tablet 75 mg PO DAILY Blood Clot 01/10/23 07/23/24 07/22/24 History
Prevention/Tx
donepezil 10 mg tablet 10 mg PO HS Mental Health/Anxiety 01/10/23 07/23/24 07/22/24 History
levalbuterol tartrate 45 2 inh inhalation R Q6HPRN PRN sob 01/10/23 07/23/24 Unknown History
mcg/actuation aerosol inhaler ##0
(Xopenex HFA)
levothyroxine 50 mcg tablet 50 mcg PO DAILY Thyroid 01/10/23 07/23/24 07/22/24 History
lidocaine 1.8 % topical patch 3 patch topical DAILYPRN PRN b/l 01/10/23 07/23/24 03/22/24 History
(ZTlido) knee,hip and/or lower back
meclizine 12.5 mg tablet 25 mg PO BIDPRN PRN verigo 01/10/23 07/23/24 03/22/24 History
mirtazapine 45 mg tablet 45 mg PO HS Mental Health/Anxiety 01/10/23 07/23/24 07/22/24 History
pantoprazole 40 mg tablet,delayed 40 mg PO BID Gastrointestinal Issue 01/10/23 07/23/24 07/22/24 History
release (Protonix)
sennosides 8.6 mg-docusate sodium 3 tab-cap PO HS Constipation ##0 01/10/23 07/23/24 07/22/24 History
50 mg tablet
valsartan 40 mg tablet 20 mg PO DAILY Blood Pressure 01/10/23 07/23/24 07/22/24 History
benztropine 1 mg tablet 1 mg PO BID@1200,2000 01/12/23 07/23/24 07/22/24 History
extrapyrimadal symptoms
cyanocobalamin (vitamin B-12) 1,000 mcg PO Q48H Supplement 05/14/23 07/23/24 Unknown History
1,000 mcg tablet
cyclobenzaprine 10 mg tablet 10 mg PO HS Muscle Spasms 05/14/23 07/23/24 07/22/24 History
ergocalciferol (vitamin D2) 1,250 1,250 mcg PO WE Supplement 05/14/23 07/23/24 07/19/24 History
mcg (50,000 unit) capsule
hydrocodone 10 mg-acetaminophen 1 tab PO Q6HPRN PRN severe pain 05/14/23 07/23/24 03/22/24 History
325 mg tablet
lidocaine-prilocaine 2.5 %-2.5 % 1 applic topical Q8HPRN PRN 05/14/23 07/23/24 Unknown History
topical cream breakthrough mild pain
memantine 10 mg tablet 10 mg PO BID Neurological Condition 05/14/23 07/23/24 07/22/24 History
ondansetron 4 mg disintegrating 4 mg PO BIDPRN PRN nausea 05/14/23 07/23/24 Unknown History
tablet
furosemide 40 mg tablet 80 mg PO TUSA Fluid 07/13/23 07/23/24 07/19/24 History
Retention/Swelling
tizanidine 2 mg tablet 2 mg PO BID Muscle Spasms 07/13/23 07/23/24 07/22/24 History
budesonide-formoterol HFA 160 2 inh inhalation R BID 10/08/23 07/23/24 07/22/24 History
mcg-4.5 mcg/actuation aerosol Lung/Breathing Issues
inhaler (Symbicort)
cranberry 500 mg capsule 4,200 mg PO BID Supplement 03/22/24 07/23/24 07/22/24 History
fluticasone propionate 50 1 spray intranasal BID Congestion 03/22/24 07/23/24 07/22/24 History
mcg/actuation nasal
spray,suspension
pregabalin 25 mg capsule (Lyrica) 25 mg PO TIDPRN PRN neuropathy 03/22/24 07/23/24 Unknown History
sucralfate 1 gram tablet 1 g PO BIDPRN PRN stomach ulcer 03/22/24 07/23/24 Unknown History
benztropine 2 mg tablet 1 mg PO BID EPS 07/07/24 07/23/24 07/22/24 History
calcium 500 mg-vitamin D3 100 1 tab DAILY Supplement 07/07/24 07/23/24 07/22/24 History
unit-vitamin K 40 mcg chewable
tablet
potassium chloride 20 mEq 20 meq PO BID Electrolyte Repletion 07/07/24 07/23/24 07/22/24 History
tablet,extended
release(part/cryst) (Klor-Con M)
alprazolam 0.5 mg tablet 0.5 mg PO QIDPRN PRN Mental 07/23/24 07/23/24 Unknown History
Health/Anxiety
furosemide 40 mg tablet (Lasix) 40 mg PO SUMOWETHFR 07/23/24 07/23/24 07/21/24 History
Review of Systems
-
Unable to Obtain full review of systems at this time due to: Other (Per HPI)
Vitals / Labs / Diagnostic Testing
Vital Signs
Temp Pulse Resp BP Pulse Ox
98.7 F 81 20 120/65 98
07/24/24 07:35 07/24/24 08:07 07/24/24 08:07 07/24/24 07:42 07/24/24 08:07
Lab Data
07/24/24 06:27
07/24/24 06:27
Microbiology
07/23/24 09:36 Blood/Venous Blood Culture - Preliminary
No Growth in 24 hours- Final report to follow
07/23/24 09:37 Nasal Swab Influenza Types A & B (DEL) - Final
Negative for Influenza A & B, NAAT
Negative results must be combined with clinical observations
and patient history.
Nucleic Acid Amplification test (NAAT)performed on the
[employer] platform.
Diagnostic Testing:
Physical Exam
-
Exam:
Well-nourished and well-developed in no apparent distress
HEENT-atraumatic, normocephalic
Neck-supple, no JVD, no bruit
Heart-regular rate and rhythm-no murmurs, rubs or gallops
Chest with diminished breath sounds, no wheezes and rare basilar crackle
Abdomen-soft, nontender, nondistended, no hepatosplenomegaly
Extremities-no cyanosis, clubbing, edema and good peripheral pulses
Integument-intact, no rashes, lesions or ecchymosis
Neurology-alert and oriented, nonfocal motor and sensory exam
Assessment
-
69-year-old with a history of asthma followed by Dr. Szymanski, suspected silent aspiration, obstructive sleep apnea, hypertension, hyperlipidemia, diabetes, CVA, cognitive impairment as well as anxiety/depression/schizoaffective disorder who
presented with nonproductive cough, shortness of breath after recent hospitalization for community-acquired pneumonia 07/08/2024 and pulmonary consulted for chronic cough 07/24/2024.
Sepsis-fever, tachycardia and tachypnea and persistent pneumonia
Aspiration risk
Chronic cough
Asthma without acute exacerbation
Mild [id number] 10.2
Mild hyperglycemia
Conditions present prior to admission:
Hospitalization March 2024-right lower lobe pneumonia-aspiration suspected
Hospitalization 06/2024-right lower lobe pneumonia
Asthma-followed by Dr. Szymanski-maintained on Symbicort and Xopenex as well as Aurea, Astelin and Flonase
Pulmonary nodule-7-8 mm stable
Recurrent pneumonia-aspiration suspected
EVELINA resolved with weight loss.
Obesity/bariatric surgery.
Hypertension.
Hyperlipidemia.
Diabetes.
Hypothyroid.
History CVA.
Anxiety/depression/schizoaffective disorder.
Cognitive dysfunction.
GERD.
Vertigo.
Diverticulosis.
Cholecystectomy. Right knee repair. Tonsillectomy. Carpal tunnel 2020 11/2022. Cataract. Glaucoma. Hysterectomy.
Plan
Respiratory decompensation in the form of a chronic cough and persistent but slightly improved opacification on chest x-ray could be consistent with recurrent silent aspiration pneumonia
Supplemental oxygen as needed
Mucolytic's
Aspiration precautions
Speech therapy evaluation
Video swallow if needed
Diet modification if needed
Nebulizers as needed
Follow radiographically-repeat CT chest if necessary
No need for steroids
Check cultures
Empiric antibiotics
Check procalcitonin
Follow hemoglobin
Transfuse if needed
Monitor blood sugar
Insulin supplementation if needed
DVT prophylaxis-on subcu heparin
GI prophylaxis-on Pepcid at night
Nutrition with aspiration precautions
Early mobilization
Reviewed with nursing
Patient was last seen by Dr. Szymanski 03/07/2024 and has a follow-up appointment 04/05/2024 at 4:15 PM
Diagnostic data:
CXR 10/29/22: New areas of linear interstitial airspace disease in the right middle lobe and basilar portion of the left lower lobe suggesting interstitial pneumonia/bronchiolitis
Chest x-ray 03/02/2024-��NAD
Chest x-ray 03/22/20242042-[id number] pneumonia, no large parapneumonic effusion is appreciated
Chest x-ray 07/07/2024-left lower lobe pneumonia
Chest x-ray 07/23/2024-persistent patchy opacification in the left lung with some improvement compared to 07/10/2024, mildly elevated right hemidiaphragm
CT chest 04/24/2024-resolution of right pneumonia, low lung volumes with scattered bilateral subsegmental atelectasis, stable 7 mm solid pulmonary nodule
CT scan08/09/2023: Reviewed,Jermaine Stanley 08/24/2023 08:54:12 AM >��1. Stable left lisa-fissural nodule, likely benign.2.� Interval resolution of previously seen left upper lobe groundglass densities.��������-��������CXR 05/16/2023: Right
upper lobe pneumonia appears unchanged. Linear foci in the left lower lobe may be subsegmental atelectasis.��������-��������
CT chest 04/12/2023: Previous opacity/pneumonia in the right lower lobe has resolved. Mild scarring versus atelectasis in the mid to lower lung zones. A perifissural nodule in the left mid to lower lung zone has remained stable. Multiple subtle
groundglass nodular opacities have developed in the left upper lobe measuring up to 8.4 mm.��������-
VSE 01/12/2023: Upper laryngeal penetration. No aspiration.��������-��������
CT chest 01/10/2023:showed no evidence for central pulmonary embolism. Patchy right lower lobe opacification, most likely pneumonia. Prominence of pulmonary interstitium some vague groundglass opacities bilaterally, sparing the Overload. Mild chronic
fiber changes.��������-��������
CT chest01/10/2023: showed no evidence for acute pulmonary embolism.Right lower lobe airspace disease, likely pneumonia, new compared to November 2022. Mild bilateral groundglass opacities.Stable left lower lobe pulmonary nodule.��������-��������
CT chest 2022:Reviewed, showed 8 mm pleural-based pulmonary nodule slightly increased compared to prior examinations.����������������-��������
CT chest 05/08/2022: Solid pleural-based 8 mm left lower lobe pulmonary nodule. Appearance of slight increase in size. However this can be due to the location and the slice image. Moderate right upper lobe and right lower lobe atelectasis versus
scarring. Mild lingular and right middle lobe atelectasis versus scarring. Gallbladder has been removed.
CT sinus 03/14/2024-unremarkable CT of the sinuses
Lower extremity ultrasound 03/22/2024-no evidence for DVT
PFT 08/24/2023-FEV1 2.16-86%, FVC 2.78-84%, TLC 76%, RV 55%, DLCO 72%, DLCO/VA 89%
Data Reviewed
-
PFT: Report reviewed by me
EKG: Report reviewed by me
Radiology: Image personally visualized and interpreted and Report reviewed by me
CT Scan: Image personally visualized and interpreted and Report reviewed by me
Medical Tests (Nuc Med, Echo etc): Report reviewed by me
Labs: Labs reviewed by me
Old Records: Reviewed
Total Time Spent with Patient (in minutes): 65
--- NOTE | 2024-07-24 12:00 | CON.NEURO ---
Consultation
Order
Date of Consultation: 07/24/24
Requesting Provider: Eufemia Bunch DO
Reason for Consult: Dysphagia
CC: none
HPI: This is a 69-year-old woman who presented to [facility] on July 23, 2024 with cough and hypoxia.
Neurology consultation was requested in evaluation of dysphagia.
Ms. Salinas reports a recent fall due to loss of balance, landing on her knees with no LOC or head trauma. She reports no dysphagia to liquids or solids, sialorrhea, myalgias, abnormal movements or change in gait. Ms. Salinas has a history of '
ankylosing spondylitis' and chronic back pain, managed by pain management since she is not responding to conventional therapy and was ' discharged' by rheumatology in the past. She has been ambulating independently. No family history of
demyelinating MACHINE HOSTLER disease.
ER VS: 149/60, 106, afebrile. 92% on 2 l of O2.
EKG: NSR: QTc Int : 441 ms
PDMP:Alprazolam 0.5 Mg 120 tabs filled in on 07/06/2024, 06/07/2024; Hydrocodone-Acetamin 10-325�120 tabs filled in on 07/05/2024, 06/07/2024, Pregabalin 25 Mg�180 capsules filled in on 04/12/2024.
Labs: Glucose�134, hemoglobin 12.7�10.2, normal creatinine, WBCs, sodium.
CT head-No acute intracranial abnormality noted, specifically no acute intracranial hemorrhage. 1.4 cm likely epidermal inclusion cyst.
Brain MRI w/wo luciano(01/13/2022) done for 'Memory loss. Dizziness. Fatigue. Headaches. Weakness. 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
LS spine MRI wo luciano(01/25/2024) mild degenerative disk and joint disease. No focal disk herniation or clear nerve root impingement.
CXR: Persistent patchy airspace opacities in the left lung remain concerning for pneumonia. Some improvement compared to chest radiographs from 07/10/2024 and 07/07/2024
Modified barium swallow(07/10/2024)no fluoroscopic evidence for airway aspiration.
PMH: HTN, DLP, DM, asthma, EVELINA, hypothyroidism, LUCIANO, MDD, /schizoaffective disorder, diverticulosis, vertigo, chronic opioid use; h/o osteoporosis, HLA-B27�posiitve
PSH: BL cataract surgery, gastric bypass; cholecystectomy, R TKA, tonsillectomy. BL CTS, partial hysterectomy; trabeculectomy;
SH: lives with significant other; daugther/her family and younger brother; former RN; nonsmoker; no history of excessive ETOh use; independent in AIDLs
FH: sister-ankylosing spondylitis; Father-COPD; mother-stroke and hypertension
All: NSAIDs, HCTZ, promethazine, Lyrica, zolpidem, celecoxib, Phenothiazines, Gabapentin
ROS:Constitutional: Negative. Negative for chills, fever and unexpected weight change.
HENT: Negative for ear pain, hearing loss, tinnitus and trouble swallowing.
Eyes: Negative. Negative for photophobia, pain and visual disturbance.
Respiratory: positive for cough
Cardiovascular: Negative for chest pain, palpitations and leg swelling.
Gastrointestinal: Negative for abdominal pain and vomiting.
Endocrine: Negative. Negative for cold intolerance.
Genitourinary: Negative for dysuria, flank pain and urgency.
Musculoskeletal: positive for chronic back pain and R knee pain
Skin: Negative for rash.
Allergic/Immunologic: Negative. Negative for immunocompromised state.
Neurological: Negative for dizziness, tremors, seizures, speech difficulty, numbness and headaches.
Psychiatric/Behavioral: Negative for behavioral problems, confusion and hallucinations.
General: Well developed. In no acute distress.
Cardio: Regular rate and rhythm without murmur. Extremities are without cyanosis or edema.
Neuro:
Mental Status: Alert, oriented to person, place, month, year. Date was incorrect but very close. Normal attention and recall. Good fund of knowledge. Follows complex requests across the midline. Comprehension, naming, and repetition intact.
Immediate recall 3/3.
Cranial Nerves: Pupils are equally round, surgical. EOMs full. Visual madrigal full to confrontation. No ptosis. No nystagmus. V1-V3 intact to light touch and pinprick bilaterally, symmetric. Face symmetric. Normal hearing AU. The palate
elevated well. SCMs and traps 5/5. Tongue midline. Edentulous dysarthria
Motor: Normal bulk and tone. No pronator or arm drift. Strength 5/5 throughout. No clonus.
Reflexes: 1+ throughout
Sensory: normal vibration at the toes
Coordination: No dysmetria or tremor.
Gait: normal stance, limited exam due to IV line
Assessment and Plan:
I. LLL opacity. Concern about microaspiration. Neuro exam is unremarkable. Edentulous dysarthria
II. Leukoaraiosis
III. Chronic back pain
IV. LLL opacity. Concern about microaspiration. Neuro exam is unremarkable.
-Fall precautions
-PT
-Please check vit b12 level, thiamine
-Edentulous dysarthria
I personally reviewed all radiology and labs along with past medical records pertinent to current medical problems. Total time spent in patient care is 60 minutes.
Thank you for allowing us to participate in the care of this patient. We will continue to follow. Please do not hesitate to contact us with any questions or concerns.
Subjective/Objective
Subjective Data
Date of Service: July 24, 2024
Objective Data
Vital Signs
Temp Pulse Resp BP Pulse Ox
37.1 C 81 20 120/65 98
07/24/24 07:35 07/24/24 08:07 07/24/24 08:07 07/24/24 07:42 07/24/24 08:07
Lab Results
07/24/24 06:27
07/24/24 06:27
Sodium 136 mmol/L (135-145) 07/24/24 06:27
Potassium 3.5 mmol/L (3.5-5.1) 07/24/24 06:27
BUN 15 mg/dl (7-17) 07/24/24 06:27
Glucose 130 mg/dl (70-99) H 07/24/24 06:27
Calcium 7.8 mg/dl (8.4-10.2) L 07/24/24 06:27
Hsy-U-Wymvpgpdris Pept 86.9 pg/ml 07/23/24 09:37
Patient Allergies
celecoxib [From Celebrex] Allergy (Verified 07/07/24 15:00)
Unknown
hydrochlorothiazide Allergy (Verified 07/07/24 15:00)
Unknown
NSAIDS (Non-Steroidal Anti-Inflamma Allergy (Verified 07/07/24 15:00)
Gastric Bypass
pregabalin [From Lyrica] Allergy (Verified 07/07/24 15:00)
Unknown
promethazine Allergy (Verified 07/07/24 15:00)
Unknown
zolpidem [From Ambien] Allergy (Verified 07/07/24 15:00)
Unknown
Medications
-
Active Medications
Generic Name Dose Route Start Last Admin
Trade Name Freq PRN Reason Stop Dose Admin
Acetaminophen 650 mg 07/23/24 16:03
Acetaminophen 325 Mg Tablet PO 08/20/24 16:02
Q4HPRN PRN
mild pain/REAL/temp> 100.4F
Hydrocodone Bitart/Acetaminophen 1 tablet 07/23/24 20:32 07/24/24 03:58
Hydrocodone 7.5 Mg/Acetaminophen 325 Mg Tablet PO 08/06/24 20:31 1 tablet
Q6HPRN PRN Administration
severe pain
Alprazolam 0.5 mg 07/23/24 16:03
Alprazolam 0.5 Mg Tablet PO 08/20/24 16:02
QIDPRN PRN
Mental Health/Anxiety
Atorvastatin Calcium 80 mg 07/24/24 08:00 07/24/24 07:41
Atorvastatin (Lipitor) 80 Mg Tablet PO 08/21/24 07:59 80 mg
DAILY JOE Administration
Benztropine Mesylate 1 mg 07/23/24 20:00 07/23/24 20:40
Benztropine 1 Mg Tablet PO 08/20/24 19:59 1 mg
BID@1200,2000 JOE Administration
Budesonide/Formoterol Fumarate 2 puff 07/23/24 20:00 07/24/24 08:02
Symbicort Inhaler 160/4.5 INH 08/20/24 19:59 2 puff
R BID JOE Administration
Protocol
Clopidogrel Bisulfate 75 mg 07/24/24 08:00 07/24/24 07:41
Clopidogrel 75 Mg Tablet PO 08/21/24 07:59 75 mg
DAILY JOE Administration
Cyanocobalamin 1,000 mcg 07/24/24 08:00 07/24/24 07:41
Cyanocobalamin 1,000 Mcg Tablet PO 08/21/24 07:59 1,000 mcg
Q48H JOE Administration
Cyclobenzaprine HCl 10 mg 07/23/24 22:00 07/23/24 20:50
Cyclobenzaprine 10 Mg Tablet PO 08/20/24 21:59 10 mg
HS JOE Administration
Donepezil HCl 10 mg 07/23/24 22:00 07/23/24 20:46
Donepezil Hcl 10 Mg Tablet PO 08/20/24 21:59 10 mg
HS JOE Administration
Ergocalciferol 50,000 units 07/26/24 08:00
Ergocalciferol (Vitamin D-2) 55021 Units Capsule PO 08/23/24 07:59
WE JOE
Famotidine 40 mg 07/23/24 22:00 07/23/24 20:46
Famotidine 40 Mg Tablet PO 08/20/24 21:59 40 mg
HS JOE Administration
Heparin Sodium 5,000 units 07/23/24 20:00 07/24/24 07:42
Heparin 5,000 Units/Ml 1 Ml Vial SC 08/20/24 19:59 5,000 units
Q12 JOE Administration
Sodium Chloride 1,000 mls @ 100 mls/hr 07/23/24 16:03 07/24/24 03:55
Nss IV 1,000 mls
.Q10H JOE Administration
Piperacillin Sod/Tazobactam Sod 3.375 gram in 50 mls @ 100 mls/hr 07/23/24 18:00 07/24/24 05:46
Zosyn IV 50 mls
Q6H JOE Administration
Vancomycin HCl 1 gram in 200 mls @ 200 mls/hr 07/24/24 10:00 07/24/24 09:27
Vancocin IV 200 mls
Q12@0600,1800 JOE Administration
Protocol
Levalbuterol 2 puff 07/23/24 16:03
Levalbuterol 45 Mcg Inhaler INH
R Q6HPRN PRN
sob
Protocol
Levothyroxine Sodium 50 mcg 07/24/24 06:00 07/24/24 05:46
Levothyroxine 50 Mcg Tablet PO 08/21/24 05:59 50 mcg
DAILY@0600 JOE Administration
Lidocaine/Prilocaine 0 gram 07/23/24 16:03 07/24/24 05:50
Lidocaine 2.5%/Prilocaine 2.5% (Cream) 5 Gram Tube TOPICAL 08/20/24 16:02 5 gram
Q8HPRN PRN Administration
breakthrough mild pain
Meclizine HCl 25 mg 07/23/24 16:03
Meclizine 12.5 Mg Tablet PO 08/20/24 16:02
BIDPRN PRN
verigo
Memantine 10 mg 07/23/24 20:00 07/24/24 07:41
Memantine 10 Mg Tablet PO 08/20/24 19:59 10 mg
BID JOE Administration
Mirtazapine 15 mg/ Mirtazapine 45 mg 07/23/24 22:00 07/23/24 20:50
30 mg PO 08/20/24 21:59 45 mg
HS JOE Administration
Non-Formulary Medication 1 mg 07/23/24 20:00
Benztropine PO 08/20/24 19:59
BID JOE
Pt Own Ztlido 1.8% 0 unit 07/23/24 22:00 07/23/24 21:31
Top Up To 3 Patches TOPICAL 08/20/24 21:59 1 unit
A Day Max On Hs HS JOE Administration
Ondansetron HCl 4 mg 07/23/24 16:03
Ondansetron 4 Mg/2 Ml Vial IV 08/20/24 16:02
Q6HPRN PRN
nausea and vomiting
Pantoprazole Sodium 40 mg 07/23/24 20:00 07/24/24 07:41
Pantoprazole 40 Mg Delayed Release Tablet PO 08/20/24 19:59 40 mg
BID JOE Administration
Patch Removal 0 patch 07/24/24 08:00 07/24/24 07:41
Remove Lidocaine Patch REMOVE 08/21/24 07:59 3 patch
DAILY@0800 JOE Administration
Pregabalin 25 mg 07/23/24 16:03
Pregabalin 25 Mg Capsule PO 08/20/24 16:02
TIDPRN PRN
neuropathy
Senna/Docusate Sodium 1 tablet 07/23/24 22:00 07/23/24 20:46
Docusate W/Senna (Maribel-Colace) Tablet PO 08/20/24 21:59 1 tablet
HS JOE Administration
Sodium Chloride 0 flush 07/23/24 17:00
Sodium Chloride 0.9% (Flush) Syringe IV 08/20/24 16:59
PER PROTOCOL JOE
Sucralfate 1 gram 07/23/24 16:03
Sucralfate 1 Gram Tablet PO 08/20/24 16:02
BIDPRN PRN
stomach ulcer
Tizanidine HCl 2 mg 07/23/24 20:00 07/24/24 07:41
Tizanidine 2 Mg Tablet PO 08/20/24 19:59 2 mg
BID JOE Administration
Valsartan 20 mg 07/24/24 08:00 07/24/24 07:42
Valsartan 40 Mg Tablet PO 08/21/24 07:59 20 mg
DAILY JOE Administration
Home Medications
�Medication �Instructions �Recorded
famotidine 40 mg tablet 40 mg PO HS Gastrointestinal Issue 05/19/15
atorvastatin 80 mg tablet 80 mg PO DAILY High Cholesterol 01/10/23
benzonatate 200 mg capsule 200 mg PO TIDPRN PRN cough 01/10/23
clopidogrel 75 mg tablet 75 mg PO DAILY Blood Clot 01/10/23
Prevention/Tx
donepezil 10 mg tablet 10 mg PO HS Mental Health/Anxiety 01/10/23
levalbuterol tartrate 45 2 inh inhalation R Q6HPRN PRN sob 01/10/23
mcg/actuation aerosol inhaler ##0
(Xopenex HFA)
levothyroxine 50 mcg tablet 50 mcg PO DAILY Thyroid 01/10/23
lidocaine 1.8 % topical patch 3 patch topical DAILYPRN PRN b/l 01/10/23
(ZTlido) knee,hip and/or lower back
meclizine 12.5 mg tablet 25 mg PO BIDPRN PRN verigo 01/10/23
mirtazapine 45 mg tablet 45 mg PO HS Mental Health/Anxiety 01/10/23
pantoprazole 40 mg tablet,delayed 40 mg PO BID Gastrointestinal Issue 01/10/23
release (Protonix)
sennosides 8.6 mg-docusate sodium 3 tab-cap PO HS Constipation ##0 01/10/23
50 mg tablet
valsartan 40 mg tablet 20 mg PO DAILY Blood Pressure 01/10/23
benztropine 1 mg tablet 1 mg PO BID@1200,2000 01/12/23
extrapyrimadal symptoms
cyanocobalamin (vitamin B-12) 1,000 mcg PO Q48H Supplement 05/14/23
1,000 mcg tablet
cyclobenzaprine 10 mg tablet 10 mg PO HS Muscle Spasms 05/14/23
ergocalciferol (vitamin D2) 1,250 1,250 mcg PO WE Supplement 05/14/23
mcg (50,000 unit) capsule
hydrocodone 10 mg-acetaminophen 1 tab PO Q6HPRN PRN severe pain 05/14/23
325 mg tablet
lidocaine-prilocaine 2.5 %-2.5 % 1 applic topical Q8HPRN PRN 05/14/23
topical cream breakthrough mild pain
memantine 10 mg tablet 10 mg PO BID Neurological Condition 05/14/23
ondansetron 4 mg disintegrating 4 mg PO BIDPRN PRN nausea 05/14/23
tablet
furosemide 40 mg tablet 80 mg PO TUSA Fluid 07/13/23
Retention/Swelling
tizanidine 2 mg tablet 2 mg PO BID Muscle Spasms 07/13/23
budesonide-formoterol HFA 160 2 inh inhalation R BID 10/08/23
mcg-4.5 mcg/actuation aerosol Lung/Breathing Issues
inhaler (Symbicort)
cranberry 500 mg capsule 4,200 mg PO BID Supplement 03/22/24
fluticasone propionate 50 1 spray intranasal BID Congestion 03/22/24
mcg/actuation nasal
spray,suspension
pregabalin 25 mg capsule (Lyrica) 25 mg PO TIDPRN PRN neuropathy 03/22/24
sucralfate 1 gram tablet 1 g PO BIDPRN PRN stomach ulcer 03/22/24
benztropine 2 mg tablet 1 mg PO BID EPS 07/07/24
calcium 500 mg-vitamin D3 100 1 tab DAILY Supplement 07/07/24
unit-vitamin K 40 mcg chewable
tablet
potassium chloride 20 mEq 20 meq PO BID Electrolyte Repletion 07/07/24
tablet,extended
release(part/cryst) (Klor-Con M)
alprazolam 0.5 mg tablet 0.5 mg PO QIDPRN PRN Mental 07/23/24
Health/Anxiety
furosemide 40 mg tablet (Lasix) 40 mg PO SUMOWETHFR 07/23/24
Vital Signs and Labs
-
Vital Signs and Labs:
Vital Signs
Temp Pulse Resp BP Pulse Ox
37.1 C 81 20 120/65 98
07/24/24 07:35 07/24/24 08:07 07/24/24 08:07 07/24/24 07:42 07/24/24 08:07
Lab Results
07/24/24 06:27
07/24/24 06:27
Sodium 136 mmol/L (135-145) 07/24/24 06:27
Potassium 3.5 mmol/L (3.5-5.1) 07/24/24 06:27
BUN 15 mg/dl (7-17) 07/24/24 06:27
Glucose 130 mg/dl (70-99) H 07/24/24 06:27
Calcium 7.8 mg/dl (8.4-10.2) L 07/24/24 06:27
Yzw-X-Ydffzhvdlgp Pept 86.9 pg/ml 07/23/24 09:37
Medications
-
Medications:
Generic Name Dose Route Start Last Admin
Trade Name Freq PRN Reason Stop Dose Admin
Acetaminophen 650 mg 07/23/24 16:03
Acetaminophen 325 Mg Tablet PO 08/20/24 16:02
Q4HPRN PRN
mild pain/REAL/temp> 100.4F
Hydrocodone Bitart/Acetaminophen 1 tablet 07/23/24 20:32 07/24/24 03:58
Hydrocodone 7.5 Mg/Acetaminophen 325 Mg Tablet PO 08/06/24 20:31 1 tablet
Q6HPRN PRN Administration
severe pain
Alprazolam 0.5 mg 07/23/24 16:03
Alprazolam 0.5 Mg Tablet PO 08/20/24 16:02
QIDPRN PRN
Mental Health/Anxiety
Atorvastatin Calcium 80 mg 07/24/24 08:00 07/24/24 07:41
Atorvastatin (Lipitor) 80 Mg Tablet PO 08/21/24 07:59 80 mg
DAILY JOE Administration
Benztropine Mesylate 1 mg 07/23/24 20:00 07/23/24 20:40
Benztropine 1 Mg Tablet PO 08/20/24 19:59 1 mg
BID@1200,2000 JOE Administration
Budesonide/Formoterol Fumarate 2 puff 07/23/24 20:00 07/24/24 08:02
Symbicort Inhaler 160/4.5 INH 08/20/24 19:59 2 puff
R BID JOE Administration
Protocol
Clopidogrel Bisulfate 75 mg 07/24/24 08:00 07/24/24 07:41
Clopidogrel 75 Mg Tablet PO 08/21/24 07:59 75 mg
DAILY JOE Administration
Cyanocobalamin 1,000 mcg 07/24/24 08:00 07/24/24 07:41
Cyanocobalamin 1,000 Mcg Tablet PO 08/21/24 07:59 1,000 mcg
Q48H JOE Administration
Cyclobenzaprine HCl 10 mg 07/23/24 22:00 07/23/24 20:50
Cyclobenzaprine 10 Mg Tablet PO 08/20/24 21:59 10 mg
HS JOE Administration
Donepezil HCl 10 mg 07/23/24 22:00 07/23/24 20:46
Donepezil Hcl 10 Mg Tablet PO 08/20/24 21:59 10 mg
HS JOE Administration
Ergocalciferol 50,000 units 07/26/24 08:00
Ergocalciferol (Vitamin D-2) 76763 Units Capsule PO 08/23/24 07:59
WE JOE
Famotidine 40 mg 07/23/24 22:00 07/23/24 20:46
Famotidine 40 Mg Tablet PO 08/20/24 21:59 40 mg
HS JOE Administration
Heparin Sodium 5,000 units 07/23/24 20:00 07/24/24 07:42
Heparin 5,000 Units/Ml 1 Ml Vial SC 08/20/24 19:59 5,000 units
Q12 JOE Administration
Sodium Chloride 1,000 mls @ 100 mls/hr 07/23/24 16:03 07/24/24 03:55
Nss IV 1,000 mls
.Q10H JOE Administration
Piperacillin Sod/Tazobactam Sod 3.375 gram in 50 mls @ 100 mls/hr 07/23/24 18:00 07/24/24 05:46
Zosyn IV 50 mls
Q6H JOE Administration
Vancomycin HCl 1 gram in 200 mls @ 200 mls/hr 07/24/24 10:00 07/24/24 09:27
Vancocin IV 200 mls
Q12@0600,1800 JOE Administration
Protocol
Levalbuterol 2 puff 07/23/24 16:03
Levalbuterol 45 Mcg Inhaler INH
R Q6HPRN PRN
sob
Protocol
Levothyroxine Sodium 50 mcg 07/24/24 06:00 07/24/24 05:46
Levothyroxine 50 Mcg Tablet PO 08/21/24 05:59 50 mcg
DAILY@0600 JOE Administration
Lidocaine/Prilocaine 0 gram 07/23/24 16:03 07/24/24 05:50
Lidocaine 2.5%/Prilocaine 2.5% (Cream) 5 Gram Tube TOPICAL 08/20/24 16:02 5 gram
Q8HPRN PRN Administration
breakthrough mild pain
Meclizine HCl 25 mg 07/23/24 16:03
Meclizine 12.5 Mg Tablet PO 08/20/24 16:02
BIDPRN PRN
verigo
Memantine 10 mg 07/23/24 20:00 07/24/24 07:41
Memantine 10 Mg Tablet PO 08/20/24 19:59 10 mg
BID JOE Administration
Mirtazapine 15 mg/ Mirtazapine 45 mg 07/23/24 22:00 07/23/24 20:50
30 mg PO 08/20/24 21:59 45 mg
HS JOE Administration
Non-Formulary Medication 1 mg 07/23/24 20:00
Benztropine PO 08/20/24 19:59
BID JOE
Pt Own Ztlido 1.8% 0 unit 07/23/24 22:00 07/23/24 21:31
Top Up To 3 Patches TOPICAL 08/20/24 21:59 1 unit
A Day Max On Hs HS JOE Administration
Ondansetron HCl 4 mg 07/23/24 16:03
Ondansetron 4 Mg/2 Ml Vial IV 08/20/24 16:02
Q6HPRN PRN
nausea and vomiting
Pantoprazole Sodium 40 mg 07/23/24 20:00 07/24/24 07:41
Pantoprazole 40 Mg Delayed Release Tablet PO 08/20/24 19:59 40 mg
BID JOE Administration
Patch Removal 0 patch 07/24/24 08:00 07/24/24 07:41
Remove Lidocaine Patch REMOVE 08/21/24 07:59 3 patch
DAILY@0800 JOE Administration
Pregabalin 25 mg 07/23/24 16:03
Pregabalin 25 Mg Capsule PO 08/20/24 16:02
TIDPRN PRN
neuropathy
Senna/Docusate Sodium 1 tablet 07/23/24 22:00 07/23/24 20:46
Docusate W/Senna (Maribel-Colace) Tablet PO 08/20/24 21:59 1 tablet
HS JOE Administration
Sodium Chloride 0 flush 07/23/24 17:00
Sodium Chloride 0.9% (Flush) Syringe IV 08/20/24 16:59
PER PROTOCOL JOE
Sucralfate 1 gram 07/23/24 16:03
Sucralfate 1 Gram Tablet PO 08/20/24 16:02
BIDPRN PRN
stomach ulcer
Tizanidine HCl 2 mg 07/23/24 20:00 07/24/24 07:41
Tizanidine 2 Mg Tablet PO 08/20/24 19:59 2 mg
BID JOE Administration
Valsartan 20 mg 07/24/24 08:00 07/24/24 07:42
Valsartan 40 Mg Tablet PO 08/21/24 07:59 20 mg
DAILY JOE Administration
Home Medications
-
Home Medications
famotidine 40 mg tablet 40 mg PO HS Gastrointestinal Issue 05/19/15
atorvastatin 80 mg tablet 80 mg PO DAILY High Cholesterol 01/10/23
benzonatate 200 mg capsule 200 mg PO TIDPRN PRN cough 01/10/23
clopidogrel 75 mg tablet 75 mg PO DAILY Blood Clot Prevention/Tx 01/10/23
donepezil 10 mg tablet 10 mg PO HS Mental Health/Anxiety 01/10/23
levalbuterol tartrate 45 mcg/actuation aerosol inhaler (Xopenex HFA) 2 inh inhalation R Q6HPRN PRN sob ##0 01/10/23
levothyroxine 50 mcg tablet 50 mcg PO DAILY Thyroid 01/10/23
lidocaine 1.8 % topical patch (ZTlido) 3 patch topical DAILYPRN PRN b/l knee,hip and/or lower back 01/10/23
meclizine 12.5 mg tablet 25 mg PO BIDPRN PRN verigo 01/10/23
mirtazapine 45 mg tablet 45 mg PO HS Mental Health/Anxiety 01/10/23
pantoprazole 40 mg tablet,delayed release (Protonix) 40 mg PO BID Gastrointestinal Issue 01/10/23
sennosides 8.6 mg-docusate sodium 50 mg tablet 3 tab-cap PO HS Constipation ##0 01/10/23
valsartan 40 mg tablet 20 mg PO DAILY Blood Pressure 01/10/23
benztropine 1 mg tablet 1 mg PO BID@1200,2000 extrapyrimadal symptoms 01/12/23
cyanocobalamin (vitamin B-12) 1,000 mcg tablet 1,000 mcg PO Q48H Supplement 05/14/23
cyclobenzaprine 10 mg tablet 10 mg PO HS Muscle Spasms 05/14/23
ergocalciferol (vitamin D2) 1,250 mcg (50,000 unit) capsule 1,250 mcg PO WE Supplement 05/14/23
hydrocodone 10 mg-acetaminophen 325 mg tablet 1 tab PO Q6HPRN PRN severe pain 05/14/23
lidocaine-prilocaine 2.5 %-2.5 % topical cream 1 applic topical Q8HPRN PRN breakthrough mild pain 05/14/23
memantine 10 mg tablet 10 mg PO BID Neurological Condition 05/14/23
ondansetron 4 mg disintegrating tablet 4 mg PO BIDPRN PRN nausea 05/14/23
furosemide 40 mg tablet 80 mg PO TUSA Fluid Retention/Swelling 07/13/23
tizanidine 2 mg tablet 2 mg PO BID Muscle Spasms 07/13/23
budesonide-formoterol HFA 160 mcg-4.5 mcg/actuation aerosol inhaler (Symbicort) 2 inh inhalation R BID Lung/Breathing Issues 10/08/23
cranberry 500 mg capsule 4,200 mg PO BID Supplement 03/22/24
fluticasone propionate 50 mcg/actuation nasal spray,suspension 1 spray intranasal BID Congestion 03/22/24
pregabalin 25 mg capsule (Lyrica) 25 mg PO TIDPRN PRN neuropathy 03/22/24
sucralfate 1 gram tablet 1 g PO BIDPRN PRN stomach ulcer 03/22/24
benztropine 2 mg tablet 1 mg PO BID EPS 07/07/24
calcium 500 mg-vitamin D3 100 unit-vitamin K 40 mcg chewable tablet 1 tab DAILY Supplement 07/07/24
potassium chloride 20 mEq tablet,extended release(part/cryst) (Klor-Con M) 20 meq PO BID Electrolyte Repletion 07/07/24
alprazolam 0.5 mg tablet 0.5 mg PO QIDPRN PRN Mental Health/Anxiety 07/23/24
furosemide 40 mg tablet (Lasix) 40 mg PO SUMOWETHFR 07/23/24
--- NOTE | 2024-07-24 12:03 | PTOTSP ---
Dysphagia Evaluation
Oral stage mildly prolonged due to edentulous status but functional. No signs/complaints of pharyngeal dysphagia. Last known video swallow study 07/10/2024 mild oral stage, WFL pharyngeal stage, no penetration/aspiration, concern for esophageal
dysphagia.
Recommend:
1. Regular, Thin Liquids
2. Medications as best tolerated
3. Pick soft/moist foods, cut well, follow reflux
precautions
4. Oral care 3x daily
5. GI consult
No further dysphagia therapy warranted at this time. If concerned for silent aspiration reconsult via video swallow study. Low suspicion at this time given recent video without this in June 2024.
[2024-07-24] MEDS: COGENTIN 1 MG PO ×2 (12:21→21:04)
--- NOTE | 2024-07-24 13:52 | CON.GI ---
Addendum entered and electronically signed by Kandy Mendez DO 07/24/24 15:50:
Patient seen and examined independently of JUDITH. I agree with her note with my additions below
Patient is a 69-year-old female with history of Polina-en-Y gastric bypass in 2008 with iron deficiency anemia followed by hematology with prior iron infusions in the past, ankylosing spondylitis, not on therapy year with multiple episodes over 2022
and 2023 for pneumonia with concern of esophageal etiology. She was admitted again for cough shortness of breath and concern for pneumonia. She has a history of stroke on Plavix. During her previous admission she had a video swallow examination
on 07/10/2024 for concern for aspiration pneumonia which showed no evidence of aspiration. She just saw Dr. Rodrigez as an outpatient last week and he suggested an esophagram. She does take narcotics. She struggles with constipation alternating
with diarrhea with any doses of lactulose. Denies any NSAID use. She does get nausea roughly twice a week with Zofran without vomiting.
She denies any dysphagia to liquids. Occasionally she feels some pressure when she eats solids but no forced regurgitation.
She does sometimes wake up at night with cough when lying down. She denies any cough while actively drinking or eating.
# Aspiration pneumonia with a normal video swallow examination -possibly esophageal dysmotility versus significant reflux plus or minus gastroparesis in the setting of Polina-en-Y gastric bypass and small pouch with increased risk for reflux
-- PPI
-- Esophagram
-- Patient is on Plavix
Will follow
Original Note:
Consultation
-
Date/Time Consultation Requested: 07/24/24 1130
Date/Time Consultation Performed: 07/24/24 1350
Requesting Provider: cleopatra Bunch DO
Performing Provider: JUDITH Laguerre, Kandy Mendez DO
Reason for Consultation: dysphagia
Medical History
Chief Complaint / HPI
Chief Complaint: GERD, dysphagia
History of Present Illness:
69-year-old female with past medical history of asthma, Iron deficiency anemia followed by hematology with prior IV infusions in the past, ankylosing spondylitis, bipolar, dementia, fibromyalgia, chronic pain, hyperlipidemia, GERD, prior gastric
bypass 2008 with EGD at [facility] 2 yrs ago per patient for hx of JOEL, chronic lymphedema, hypothyroidism and chronic hyponatremia with 4 episodes in 2022 and 3 episodes this year for PNA and resp insufficiency. She completed VSE last admission
with concern for esophageal component of symptoms. Pt admits to chronic GERD since gastric bypass on PPi and Pepcid prior to admission. She also admits to nausea with Zofran use 1-2 times per week. She does have some constipation and will have
diarrhea even with smallest doses of laxative. + wt loss in 2019 down to 120 lb now up to 180 lbs but recently did loose about 10 lbs. She denies NSAID use. Otherwise denies rectal bleeding or vomiting.
Past Medical History
Past Medical History: Asthma, CVA, GERD, HTN, Hypercholesterolemia, Hypothyroidism, Psychiatric and Other (Asthma, ankylosing spondylitis, bipolar, dementia, fibromyalgia, chronic pain, hyperlipidemia, GERD, chronic lymphedema, hypothyroidism,
chronic hyponatremia, Iron deficiency anemia)
Past Surgical History: Cholecystectomy, Orthopedic (right knee replacement ), Tonsilectomy and Other (Gastric bypass, hysterectomy)
Social History
Tobacco: Non-Smoker
Alcohol: None
Drug: Marijuana (in past)
Personal:
Living: With Family
Family History
Family History: Other (No family history of gastrointestinal malignancy or inflammatory bowel disease)
Allergies / Home Medications
Allergy/AdvReac Type Severity Reaction Status Date / Time
celecoxib [From Celebrex] Allergy Unknown Verified 07/07/24 15:00
hydrochlorothiazide Allergy Unknown Verified 07/07/24 15:00
NSAIDS (Non-Steroidal Allergy Gastric Verified 07/07/24 15:00
Anti-Inflamma Bypass
pregabalin [From Lyrica] Allergy Unknown Verified 07/07/24 15:00
promethazine Allergy Unknown Verified 07/07/24 15:00
zolpidem [From Ambien] Allergy Unknown Verified 07/07/24 15:00
�Medication �Instructions �Recorded
famotidine 40 mg tablet 40 mg PO HS Gastrointestinal Issue 05/19/15
atorvastatin 80 mg tablet 80 mg PO DAILY High Cholesterol 01/10/23
benzonatate 200 mg capsule 200 mg PO TIDPRN PRN cough 01/10/23
clopidogrel 75 mg tablet 75 mg PO DAILY Blood Clot 01/10/23
Prevention/Tx
donepezil 10 mg tablet 10 mg PO HS Mental Health/Anxiety 01/10/23
levalbuterol tartrate 45 2 inh inhalation R Q6HPRN PRN sob 01/10/23
mcg/actuation aerosol inhaler ##0
(Xopenex HFA)
levothyroxine 50 mcg tablet 50 mcg PO DAILY Thyroid 01/10/23
lidocaine 1.8 % topical patch 3 patch topical DAILYPRN PRN b/l 01/10/23
(ZTlido) knee,hip and/or lower back
meclizine 12.5 mg tablet 25 mg PO BIDPRN PRN verigo 01/10/23
mirtazapine 45 mg tablet 45 mg PO HS Mental Health/Anxiety 01/10/23
pantoprazole 40 mg tablet,delayed 40 mg PO BID Gastrointestinal Issue 01/10/23
release (Protonix)
sennosides 8.6 mg-docusate sodium 3 tab-cap PO HS Constipation ##0 01/10/23
50 mg tablet
valsartan 40 mg tablet 20 mg PO DAILY Blood Pressure 01/10/23
benztropine 1 mg tablet 1 mg PO BID@1200,2000 01/12/23
extrapyrimadal symptoms
cyanocobalamin (vitamin B-12) 1,000 mcg PO Q48H Supplement 05/14/23
1,000 mcg tablet
cyclobenzaprine 10 mg tablet 10 mg PO HS Muscle Spasms 05/14/23
ergocalciferol (vitamin D2) 1,250 1,250 mcg PO WE Supplement 05/14/23
mcg (50,000 unit) capsule
hydrocodone 10 mg-acetaminophen 1 tab PO Q6HPRN PRN severe pain 05/14/23
325 mg tablet
lidocaine-prilocaine 2.5 %-2.5 % 1 applic topical Q8HPRN PRN 05/14/23
topical cream breakthrough mild pain
memantine 10 mg tablet 10 mg PO BID Neurological Condition 05/14/23
ondansetron 4 mg disintegrating 4 mg PO BIDPRN PRN nausea 05/14/23
tablet
furosemide 40 mg tablet 80 mg PO TUSA Fluid 07/13/23
Retention/Swelling
tizanidine 2 mg tablet 2 mg PO BID Muscle Spasms 07/13/23
budesonide-formoterol HFA 160 2 inh inhalation R BID 10/08/23
mcg-4.5 mcg/actuation aerosol Lung/Breathing Issues
inhaler (Symbicort)
cranberry 500 mg capsule 4,200 mg PO BID Supplement 03/22/24
fluticasone propionate 50 1 spray intranasal BID Congestion 03/22/24
mcg/actuation nasal
spray,suspension
pregabalin 25 mg capsule (Lyrica) 25 mg PO TIDPRN PRN neuropathy 03/22/24
sucralfate 1 gram tablet 1 g PO BIDPRN PRN stomach ulcer 03/22/24
benztropine 2 mg tablet 1 mg PO BID EPS 07/07/24
calcium 500 mg-vitamin D3 100 1 tab DAILY Supplement 07/07/24
unit-vitamin K 40 mcg chewable
tablet
potassium chloride 20 mEq 20 meq PO BID Electrolyte Repletion 07/07/24
tablet,extended
release(part/cryst) (Klor-Con M)
alprazolam 0.5 mg tablet 0.5 mg PO QIDPRN PRN Mental 07/23/24
Health/Anxiety
furosemide 40 mg tablet (Lasix) 40 mg PO SUMOWETHFR 07/23/24
Review of Systems
-
History Source: Patient
Constitutional: Reports Weight Loss and Fatigue
EENT: Reports No Symptoms
Respiratory: Reports Cough and Trouble Breathing (on admission )
Cardiac: Reports No Symptoms
Abdomen/GI: Reports Nausea, Diarrhea, Constipated and Other (GERD)
: Reports No Symptoms
Musculoskeletal: Reports No Symptoms
Skin: Reports No Symptoms
Neurological: Reports No Symptoms
Endocrine: Reports No Symptoms
Hematologic/Lymphatic: Reports No Symptoms
Vital Signs
Temp Pulse Resp BP Pulse Ox
98.7 F 81 20 120/65 98
07/24/24 07:35 07/24/24 08:07 07/24/24 08:07 07/24/24 07:42 07/24/24 08:07
Physical Exam
Exam
General: Well Developed, Well Nourished and No Apparent Distress
HEENT: Normocephalic and Anicteric
Respiratory: Other (course )
Cardiac: Regular Rhythm
GI: Soft, Non Tender and Non Distended
Musculoskeletal: No Clubbing and No Cyanosis
Skin: Warm and Dry
Neuro: Alert and AO x 3
Psych: Calm
Results
WBC 9.3 10^3/uL (4.8-10.8) 07/24/24 06:27
Hgb 10.2 g/dL (12.0-16.0) L 07/24/24 06:27
Hct 30.8 % (37.0-47.0) L 07/24/24 06:27
MCV 89.0 fL (81.0-99.0) 07/24/24 06:27
Plt Count 190 10^3/uL (130-400) 07/24/24 06:27
Absolute Neuts (auto) 7.8 10^3/uL (1.4-6.5) H 07/24/24 06:27
Sodium 136 mmol/L (135-145) 07/24/24 06:27
Potassium 3.5 mmol/L (3.5-5.1) 07/24/24 06:27
Chloride 102 mmol/L (98-107) 07/24/24 06:27
Carbon Dioxide 25 mmol/L (22-30) 07/24/24 06:27
BUN 15 mg/dl (7-17) 07/24/24:27
Creatinine 0.6 mg/dL (0.6-1.0) 07/24/24:
Calcium 7.8 mg/dl (8.4-10.2) L 07/24/24:
Total Bilirubin 0.6 mg/dl (0.2-1.3) 07/24/24:
AST 22 U/L (14-36) 07/24/24:
ALT 24 U/L (0-35) 07/24/24 06:
Alkaline Phosphatase 78 U/L (38-126) 07/24/24 06:
Diagnostic Image Results:
07/23 CXR
Persistent patchy airspace opacities in the left lung remain concerning for pneumonia. Some improvement compared to chest radiographs from 07/10/2024 and 07/07/2024
No pleural effusion or pneumothorax. Mild elevation of the right hemidiaphragm. The cardiomediastinal silhouette is stable. Chronic degenerative changes of the spine.
07/10/24
VIDEOFLUOROSCOPIC SWALLOWING EXAMINATION (VSE) completed. Mild oral dysphagia. Pharyngeal phase of swallow WFL. No penetration/aspiration noted during study. Esophageal sweep demonstrated residue without backflow.
Pt with recurrent PNA, but largely functional oropharyngeal swallow noted. Question whether related to esophagus. Pt is aware that recommendation after VSE in March was for GI consult. She has an appointment at the end of this month.
Recommend:
(1) Regular solids/thin liquids with pt choosing softer items
(2) General aspiration precautions
(3) Esophageal precautions
(4) Meds as tolerated
(5) HIGHBALLER to sign off. Please reconsult as indicated
Prior GI Procedures:
EGD: Patient states she had an EGD 2 years ago, performed at [facility]. States was within normal limits
Colonoscopy: Patient states she had colonoscopy 2 years ago, performed at [facility]. States this was within normal limits. Denies any history of polyp
Assessment / Plan
-
69-year-old female with past medical history of asthma, Iron deficiency anemia followed by hematology with prior IV infusions in the past, ankylosing spondylitis, bipolar, dementia, fibromyalgia, chronic pain, hyperlipidemia, GERD, prior gastric
bypass 2008 with EGD at [facility] 2 yrs ago per patient for hx of JOEL, chronic lymphedema, hypothyroidism and chronic hyponatremia with 4 episodes in 2022 and 3 episodes this year for PNA and resp insufficiency. She completed VSE last admission
with concern for esophageal component of symptoms. Pt admits to chronic GERD since gastric bypass on PPi and Pepcid prior to admission. She also admits to nausea with Zofran use 1-2 times per week. She does have some constipation and will have
diarrhea even with smallest doses of laxative. + wt loss in 2019 down to 120 lb now up to 180 lbs but recently did loose about 10 lbs. She denies NSAID use. Otherwise denies rectal bleeding or vomiting.
Impression:
Dysphagia
Odynophagia
recurrent PNA
VSE with concern for esophageal retention
PLAN:
etiology of recurrent PNA related to esophageal retention/ dysmotility vs back up from prior noted gastric bypass iwth chronic GERD vs other
plan for Esophagram with barium tablet and UGI in AM
cont regular diet then strict NPO for AM
cont PPI BID and pecid
carafate PRN for increased burning await UGI to see if change to scheduled dosing
if further intervention needed pt remain on Plavix therapy
cont abx for PNA per medical team
will follow
-
-
Thank you for consultation and allowing me to participate in the patient's care. Please call the condominium property manager GI physician during the after hours with any questions or concerns.
[2024-07-24 15:37] VITALS: BP 123/63
--- NOTE | 2024-07-24 16:43 | CM ---
Reviewed chart, met with patient to obtain information for assessment. Patient stated that she lives in a two story home with 3 steps to enter with her significant other, daughter and grandson. She described herself as independent with her ADLs,
personal care, bathing and dressing. She has a cane, walker, and a w/c but she often ambulates independently.
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 She drives and can get to her appointments and do all of her own shopping.
She denied any o2 at home. She stated that she has a commode, walkers and w/c from previous hospital stays.
Patient has not had VN services in the past.
She has had an LTC stay and stayed at [facility]. She stated that she liked it there.
Patient has a prescription plan and uses [facility] in [place] for all of her medications.
Her PCP is, Torrie Gamino.
Patient expressed that she has concern for her daughter who tried to attempt suicide the other day. She is at [place] currently. Patient stated that, she has no discharge concerns for herself, she is more concerned for her daughter right now.
Plan: Case management will continue to follow and assist with discharge planning. Home when stable.
[2024-07-24 17:58] LABS: Vitamin B12 954 pg/ml (239-931)
[2024-07-24] MEDS: FLEXERIL 10 MG PO (21:04)
[2024-07-24] MEDS: PEPCID 40 MG PO (21:05)
[2024-07-24] MEDS: SENOKOT-S 1 TABLET PO (21:05)
[2024-07-24] MEDS: ARICEPT 10 MG PO (21:06)
[2024-07-24] MEDS: REMERON 45 MG PO (21:06)
[2024-07-24] MEDS: NON-FORMULARY ITEM 1 UNIT TOPICAL (22:57)
[2024-07-24 23:30] VITALS: BP 138/77
[2024-07-25] MEDS: NSS 1000 IV (02:14)
[2024-07-25] MEDS: ZOSYN 50 IV ×2 (02:15→09:08)
[2024-07-25] MEDS: SYNTHROID 50 MCG PO (05:47)
[2024-07-25] MEDS: VANCOCIN 200 IV (05:49)
[2024-07-25 07:21] LABS: Hematocrit 30.5 % (37.0-47.0); Hemoglobin 10.3 g/dL (12.0-16.0); Mean Corp Hgb Conc. 33.8 g/dL (33.0-37.0); Mean Corpuscular Hgb 29.6 pg (27.0-31.0); Mean Corpuscular Volume 87.6 fL (81.0-99.0); Mean Platelet Volume 9.1 fL (7.4-10.4); Platelet Count 172 10^3/uL (130-400); Red Blood Cell Count 3.48 10^6/uL (4.20-5.40); Red Cell Dist. Width 13.4 % (11.5-14.5); White Blood Cell Count 5.6 10^3/uL (4.8-10.8)
[2024-07-25] MEDS: SYMBICORT 160/4.5 MCG INHALER 2 PUFF INH ×2 (07:35→19:33)
--- NOTE | 2024-07-25 07:39 | W.PN.HOSP.TC ---
Addendum entered and electronically signed by Ryan aMtias MD 07/25/24 14:45:
upper gi series completed
-without evidence of dysmotility
-'IMPRESSION:
Normal fluoroscopic examination of the upper gastrointestinal tract without evidence for complication of the gastric bypass.'
-resume diet.
dc antibiotics and monitor off for now as no white count and afebrile
-await further gi recs.
Original Note:
Today's Communication/Plan
-
Assessment / Plan
Assessment / Plan
Ms. Avis Leslie is a 69yo F pmh prior CVA, COPD, asthma, HTN, HLD, NIDDM admitted 07/23 for pneumonia.
Sepsis secondary to persistent L-sided pneumonia, possibly aspiration related
- lactate wnl
- CXR: L lung patches concerning for pneumonia, improved. No pleural effusion or pneumothorax
- CT head: No acute intracranial abnormality noted, specifically no acute intracranial hemorrhage. 1.4 cm epidermal inclusion cyst within the right occipital soft tissues.
- speech and swallow (07/24): ok for regular diet
- esophagram barium swallow today. If normal, consider chest CT
- blood cx pending
- afebrile, normal WBC, so hold abx
- mucinex
- aspiration precautions
- pulm, GI, neuro consulted
Anemia
- Hb 10.3
- stable
- monitor cbc
Asthma, COPD, EVELINA
- not in acute exacerbation
- cont symbicort, xopenex
HTN, HLD
- cont valsartan, statin
DM, overweight
- not on treatment
- monitor
Hx CVA
- cont plavix
Cognitive impairment
-Continue memantine, donepezil
GERD
-Continue sucralfate, Protonix, Pepcid
Hypothyroidism
-Continue levothyroxine
Anxiety/depression/schizoaffective disorder
- Continue alprazolam, mirtazapine
- pt unable to reduce stress in life at this time due to family health issues
Diverticulosis
History of vertigo
-Continue meclizine as needed
-Continue benztropine
Chronic back/knee pain/arthritis
-Continue lidocaine patch, tizanidine, pregabalin, Vicodin
Chronic b/l lower extremity edema
-Hold Lasix
DVT prophylaxis
- subq heparin
Code status: DNR/DNI
Diet: regular
Anticipated Discharge: 24 - 48 hours
Subjective/Interval History
-
Date of Service: July 25, 2024
Ms. Avis Leslie is a 69yo F pmh prior CVA, COPD, asthma, HTN, HLD, NIDDM admitted 07/23 for pneumonia. Scheduled for an esophagram w barium tablet and UGI scheduled for today.
Objective Data
-
Labs:
Laboratory Results
07/25/24
07:13
WBC 5.6
Hgb 10.3 L
Hct 30.5 L
Plt Count 172
Sodium Pending
Potassium Pending
Chloride Pending
Carbon Dioxide Pending
BUN Pending
Creatinine Pending
Glucose Pending
Calcium Pending
Vital Signs:
Vital Signs
Temp Pulse Resp BP Pulse Ox
98.5 F 83 18 138/77 95
07/24/24 23:30 07/24/24 23:30 07/24/24 23:30 07/24/24 23:30 07/24/24 23:30
I&O
07/24/24 07/25/24 07/26/24
06:59 06:59 06:59
Intake Total 480 / 480 1959
Balance 480 / 480 1959
Review of Systems
-
History Source: Patient
Constitutional: Reports Fatigue; Denies Fever or Chills
Respiratory: Reports Cough; Denies Trouble Breathing
Cardiac: Denies Chest Pain or Palpitations
Abdomen/GI: Reports No Symptoms
Musculoskeletal: Reports Muscle Pain (abdominal muscles sore from coughing)
Neuro: Reports No Symptoms
Physical Exam
-
General: Well Developed and Well Nourished
HEENT: Normocephalic, Atraumatic and Other (edentulous)
Respiratory: Decreased Breath Sounds
Cardiac: Regular Rhythm and S1/S2
GI: Soft, Nontender, Nondistended and Normal Bowel Sounds
Musculoskeletal: No Cyanosis and No Edema
Skin: Warm and Dry
Neuro: Awake and AO x 3
[2024-07-25 07:57] VITALS: BP 143/80
[2024-07-25 08:37] LABS: Blood Urea Nitrogen 6 mg/dl (7-17); Calcium 8.4 mg/dl (8.4-10.2); Carbon Dioxide 24 mmol/L (22-30); Chloride 106 mmol/L (98-107); Estimated Creatinine Clearance 98 ml/min; Glucose 161 mg/dl (70-99); Potassium 3.8 mmol/L (3.5-5.1); Sodium 138 mmol/L (135-145); eGFR > 60.00
--- NOTE | 2024-07-25 10:18 | W.PN.PUL.V3 ---
Today's Communication / Plan
-
wean oxygen.
Aspiration precautions.
GI evaluation.
Check CT chest
Assessment
-
69-year-old with a history of asthma followed by Dr. Szymanski, suspected silent aspiration, obstructive sleep apnea, hypertension, hyperlipidemia, diabetes, CVA, cognitive impairment as well as anxiety/depression/schizoaffective disorder who
presented with nonproductive cough, shortness of breath after recent hospitalization for community-acquired pneumonia 07/08/2024 and pulmonary consulted for chronic cough 07/24/2024.
Sepsis-fever, tachycardia and tachypnea and persistent pneumonia
Aspiration risk
Chronic cough
Asthma without acute exacerbation
Mild dnigyi-dyviwnrwyh-mzecfyesdw 10.2
Mild hyperglycemia
Conditions present prior to admission:
Hospitalization March 2024-right lower lobe pneumonia-aspiration suspected
Hospitalization 06/2024-right lower lobe pneumonia
Asthma-followed by Dr. Szymanski-maintained on Symbicort and Xopenex as well as Aurea, Astelin and Flonase
Pulmonary nodule-7-8 mm stable
Recurrent pneumonia-aspiration suspected
EVELINA resolved with weight loss.
Obesity/bariatric surgery.
Hypertension.
Hyperlipidemia.
Diabetes.
Hypothyroid.
History CVA.
Anxiety/depression/schizoaffective disorder.
Cognitive dysfunction.
GERD.
Vertigo.
Diverticulosis.
Cholecystectomy. Right knee repair. Tonsillectomy. Carpal tunnel 11/2022. Cataract. Glaucoma. Hysterectomy.
Plan
Respiratory decompensation in the form of a chronic cough and persistent but slightly improved opacification on chest x-ray could be consistent with recurrent silent aspiration pneumonia
Supplemental oxygen as needed
Mucolytic's
Aspiration precautions
Speech therapy evaluation-evaluation noted, regular diet with thin liquids, video swallow if silent aspiration suspected
Video swallow if needed-C above.
No diet modifications required
Nebulizers as needed.
Repeat CT chest.
Consider bronchoscopy if recurrent infiltrates without clear etiology
No need for steroids.
Check immunoglobulin level with recurrent infections
Cultures reviewed.
MRSA screen negative.
Influenza negative.
Blood cultures negative.
Unable to produce sputum
Empiric antibiotics discontinued
Check procalcitonin.
Barium swallow/upper GI series completed without evidence of dysmotility and without evidence for complications of the gastric bypass.
GI evaluation-ongoing
Follow hemoglobin
Transfuse if needed
Monitor blood sugar
Insulin supplementation if needed
DVT prophylaxis-on subcu heparin
GI prophylaxis-on Pepcid at night
Nutrition with aspiration precautions
Early mobilization
Reviewed with nursing
Patient was last seen by Dr. Szymanski 03/07/2024 and has a follow-up appointment 04/05/2024 at 4:15 PM
Diagnostic data:
CXR 10/29/22: New areas of linear interstitial airspace disease in the right middle lobe and basilar portion of the left lower lobe suggesting interstitial pneumonia/bronchiolitis
Chest x-ray 03/02/2024-��NAD
Chest x-ray 03/22/20244421-cptef-gtfkh pneumonia, no large parapneumonic effusion is appreciated
Chest x-ray 07/07/2024-left lower lobe pneumonia
Chest x-ray 07/23/2024-persistent patchy opacification in the left lung with some improvement compared to 07/10/2024, mildly elevated right hemidiaphragm
CT chest 04/24/2024-resolution of right pneumonia, low lung volumes with scattered bilateral subsegmental atelectasis, stable 7 mm solid pulmonary nodule
CT scan08/09/2023: Reviewed,Jermaine Stanley 08/24/2023 08:54:12 AM >��1. Stable left lisa-fissural nodule, likely benign.2.� Interval resolution of previously seen left upper lobe groundglass densities.��������-��������CXR 05/16/2023: Right
upper lobe pneumonia appears unchanged. Linear foci in the left lower lobe may be subsegmental atelectasis.��������-��������
CT chest 04/12/2023: Previous opacity/pneumonia in the right lower lobe has resolved. Mild scarring versus atelectasis in the mid to lower lung zones. A perifissural nodule in the left mid to lower lung zone has remained stable. Multiple subtle
groundglass nodular opacities have developed in the left upper lobe measuring up to 8.4 mm.��������-
VSE 01/12/2023: Upper laryngeal penetration. No aspiration.��������-��������
CT chest 01/10/2023:showed no evidence for central pulmonary embolism. Patchy right lower lobe opacification, most likely pneumonia. Prominence of pulmonary interstitium some vague groundglass opacities bilaterally, sparing the Overload. Mild chronic
fiber changes.��������-��������
CT chest01/10/2023: showed no evidence for acute pulmonary embolism.Right lower lobe airspace disease, likely pneumonia, new compared to November 2022. Mild bilateral groundglass opacities.Stable left lower lobe pulmonary nodule.��������-��������
CT chest 2022:Reviewed, showed 8 mm pleural-based pulmonary nodule slightly increased compared to prior examinations.����������������-��������
CT chest 05/08/2022: Solid pleural-based 8 mm left lower lobe pulmonary nodule. Appearance of slight increase in size. However this can be due to the location and the slice image. Moderate right upper lobe and right lower lobe atelectasis versus
scarring. Mild lingular and right middle lobe atelectasis versus scarring. Gallbladder has been removed.
CT sinus 03/14/2024-unremarkable CT of the sinuses
Lower extremity ultrasound 03/22/2024-no evidence for DVT
PFT 08/24/2023-FEV1 2.16-86%, FVC 2.78-84%, TLC 76%, RV 55%, DLCO 72%, DLCO/VA 89%
Subjective Data
-
Date of Service:
Date of Service: July 25, 2024
Chief Complaint: Pulmonary Follow Up and Dyspnea Follow Up
Subjective:
. Still with cough, mostly nonproductive, no chest pain or abdominal pain
Review of Systems
General: Other (Per HPI)
Objective Data
Data Reviewed
Vital Signs / I&O:
Vital Signs
Temp Pulse Resp BP Pulse Ox
97.4 F 78 16 143/80 94
07/25/24 07:57 07/25/24 07:57 07/25/24 07:57 07/25/24 07:57 07/25/24 07:57
Intake and Output
07/24/24 07/25/24 07/26/24
06:59 06:59 06:59
Intake Total 480 / 480 1959
Balance 480 / 480 1959
SaO2: 94
Nasal Cannula flow liters per minute: 2
Physical Exam
General: Respiratory Distress (n) and Comfortable
HEENT: Normocephalic, Anicteric and Moist Mucous Membranes
Cardiovascular: Regular Rhythm
Respiratory: Wheeze (n), Crackles ( basilar), Rhonchi (n), Non-Labored Respirations, Accessory Resp Muscle Use (n) and Stridor (n)
GI: Soft, Non Distended and Non Tender
Neurology: Awake, Alert and No Motor Deficits
Skin: Warm, Dry, Good Color, Cyanosis (n) and Jaundice (n)
Labs/Micro/Reports
Lab Data
07/25/24 07:13
07/25/24 07:13
Microbiology
07/23/24 09:36 Blood/Venous Blood Culture - Preliminary
No Growth in 48 hours- Final report to follow
07/23/24 09:36 Blood/Venous Blood Culture - Preliminary
No Growth in 48 hours- Final report to follow
07/23/24 23:37 Nose Nasal Screen MRSA (PCR) - Final
MRSA not detected - performed by PCR methodology.
07/23/24 09:37 Nasal Swab Influenza Types A & B (DEL) - Final
Negative for Influenza A & B, NAAT
Negative results must be combined with clinical observations
and patient history.
Nucleic Acid Amplification test (NAAT)performed on the
[employer] platform.
--- NOTE | 2024-07-25 11:26 | W.PN.GI.CBS2 ---
Addendum entered and electronically signed by Jessica Cutler MD 07/25/24 17:17:
I saw and examined the patient.
The CASH APPLICATION REPRESENTATIVE or PA's note was reviewed and I agree with the note.
Comment: 69 yo F here with recurrent aspiration PNA.
Upper GI series normal.
No further inpatient GI work up needed.
GI will sign off - will set up follow up with Dr. Rodrigez outpatient.
Original Note:
Today's Communication / Plan
-
etiology of recurrent PNA related to esophageal retention/ dysmotility vs back up from prior noted gastric bypass iwth chronic GERD vs other
s/p Esophagram with barium tablet and UGI await results
ok to resume diet
add miralax x 1 dose to help contrast pass with UGI then Miralax PRN as not stool since admission
some issues with laxative use with diarrhea with minimal use
carafate PRN for increased burning await UGI to see if change to scheduled dosing
if further intervention needed pt remain on Plavix therapy
cont abx for PNA per medical team
will follow
Assessment / Plan
-
69-year-old female with past medical history of asthma, Iron deficiency anemia followed by hematology with prior IV infusions in the past, ankylosing spondylitis, bipolar, dementia, fibromyalgia, chronic pain, hyperlipidemia, GERD, prior gastric
bypass 2008 with EGD at [place] 2 yrs ago per patient for hx of JOEL, chronic lymphedema, hypothyroidism and chronic hyponatremia with 4 episodes in 2022 and 3 episodes this year for PNA and resp insufficiency. She completed VSE last admission
with concern for esophageal component of symptoms. Pt admits to chronic GERD since gastric bypass on PPi and Pepcid prior to admission. She also admits to nausea with Zofran use 1-2 times per week. She does have some constipation and will have
diarrhea even with smallest doses of laxative. + wt loss in 2019 down to 120 lb now up to 180 lbs but recently did loose about 10 lbs. She denies NSAID use. Otherwise denies rectal bleeding or vomiting.
Impression:
Dysphagia
Odynophagia
recurrent PNA
VSE with concern for esophageal retention
PLAN:
etiology of recurrent PNA related to esophageal retention/ dysmotility vs back up from prior noted gastric bypass iwth chronic GERD vs other
s/p Esophagram with barium tablet and UGI await results
ok to resume diet
add miralax x 1 dose to help contrast pass with UGI then Miralax PRN as not stool since admission
some issues with laxative use with diarrhea with minimal use
carafate PRN for increased burning await UGI to see if change to scheduled dosing
if further intervention needed pt remain on Plavix therapy
cont abx for PNA per medical team
will follow
Subjective
Subjective
Date of Service: July 25, 2024
NPO, no stools since admission still with cough, also admits to occasional foul smelling belching with GI symptoms
Objective
Data Reviewed
Laboratory Data:
Laboratory Results
07/25/24 07:13
07/25/24 07:13
Laboratory Results
Total Bilirubin 0.6 mg/dl (0.2-1.3) 07/24/24 06:27
AST 22 U/L (14-36) 07/24/24 06:27
ALT 24 U/L (0-35) 07/24/24 06:27
Alkaline Phosphatase 78 U/L (38-126) 07/24/24 06:27
Vital Signs and I&O:
Vital Signs
Temp Pulse Resp BP Pulse Ox
97.4 F 78 16 143/80 94
07/25/24 07:57 07/25/24 07:57 07/25/24 07:57 07/25/24 07:57 07/25/24 10:18
I&O
07/24/24 07/25/24 07/26/24
06:59 06:59 06:59
Intake Total 480 / 480 1960 / 1960
Balance 480 / 480 1959
Physical Exam
Physical Exam
HEENT: Anicteric and Moist mucous membranes
Cardiology: Normal Sinus Rhythm
Pulmonary: Clear and Other (occasional cough )
GI: Soft, Non Distended and Non Tender
Extremities: No Edema
Neuro: Non Focal
[2024-07-25] MEDS: PROTONIX 40 MG PO ×2 (11:43→21:04)
[2024-07-25] MEDS: PLAVIX 75 MG PO (11:43)
[2024-07-25] MEDS: ZANAFLEX 2 MG PO ×2 (11:43→21:04)
[2024-07-25] MEDS: DIOVAN 20 MG PO (11:44)
[2024-07-25] MEDS: LIPITOR 80 MG PO (11:44)
[2024-07-25] MEDS: NAMENDA 10 MG PO ×2 (11:45→21:06)
[2024-07-25] MEDS: HEPARIN 5000 UNITS SC ×2 (11:45→21:07)
[2024-07-25] MEDS: COGENTIN 1 MG PO ×2 (11:58→21:06)
[2024-07-25] MEDS: MIRALAX 34 GRAMS PO (12:03)
[2024-07-25] MEDS: NORCO 7.5/325 1 TABLET PO ×2 (15:07→21:03)
[2024-07-25 16:00] VITALS: BP 125/75
[2024-07-25] MEDS: SENOKOT-S 1 TABLET PO (21:04)
[2024-07-25] MEDS: FLEXERIL 10 MG PO (21:04)
[2024-07-25] MEDS: REMERON 45 MG PO (21:05)
[2024-07-25] MEDS: PEPCID 40 MG PO (21:06)
[2024-07-25] MEDS: ARICEPT 10 MG PO (21:06)
[2024-07-25] MEDS: NON-FORMULARY ITEM 1 UNIT TOPICAL (21:09)
[2024-07-25 23:00] VITALS: BP 146/74
[2024-07-26 03:00] VITALS: BP 125/63
[2024-07-26] MEDS: SYNTHROID 50 MCG PO (05:30)
[2024-07-26 07:00] LABS: Hematocrit 31.3 % (37.0-47.0); Hemoglobin 10.6 g/dL (12.0-16.0); Mean Corp Hgb Conc. 33.9 g/dL (33.0-37.0); Mean Corpuscular Hgb 29.4 pg (27.0-31.0); Mean Corpuscular Volume 86.9 fL (81.0-99.0); Platelet Count 171 10^3/uL (130-400); Red Cell Dist. Width 13.2 % (11.5-14.5); White Blood Cell Count 3.8 10^3/uL (4.8-10.8)
[2024-07-26 07:20] VITALS: BP 151/69
[2024-07-26] MEDS: SYMBICORT 160/4.5 MCG INHALER 2 PUFF INH ×2 (07:30→19:29)
--- NOTE | 2024-07-26 07:36 | W.PN.HOSP.TC ---
Addendum entered and electronically signed by Ryan Matias MD 07/27/24 07:04:
sepsis, left sided pna
-procal 2.5
-iv atb, was stopped but will resume due to chest ct findings and procal
-pulm following
-video swallow completed, without evidence of concern
-mucinex
-aspiratioun precautions
acute hypoxic respiratory failure
-maintain spo2 >90%
-wean o2 as tolerated
-provide mucolytics
Original Note:
Today's Communication/Plan
-
Assessment / Plan
Assessment / Plan
Ms. Avis Leslie is a 69yo F pmh prior CVA, COPD, asthma, HTN, HLD, NIDDM admitted 07/23 for pneumonia.
Sepsis secondary to persistent L-sided pneumonia, possibly aspiration related
- lactate wnl
- CXR: L lung patches concerning for pneumonia, improved. No pleural effusion or pneumothorax
- CT head: No acute intracranial abnormality noted, specifically no acute intracranial hemorrhage. 1.4 cm epidermal inclusion cyst within the right occipital soft tissues.
- speech and swallow (07/24): ok for regular diet
- esophagram barium swallow: Normal fluoroscopic examination of the upper gastrointestinal tract without evidence for complication of the gastric bypass.
- CT chest: Moderate patchy pneumonia throughout the left lung, worse than before
- blood cx: no growth 72h
- started azithromycin, ceftriaxone
- strep pneumo, legionella urine pending
- recheck sputum culture
- aspiration precautions
- mucolytics
- decadron
- pulm, GI, neuro consulted
Anemia
- Hb 10.3
- stable
- monitor cbc
Asthma, COPD, EVELINA
- not in acute exacerbation
- cont symbicort, xopenex
HTN, HLD
- cont valsartan, statin
DM, overweight
- not on treatment
- monitor
Hx CVA
- cont plavix
Cognitive impairment
-Continue memantine, donepezil
GERD
-Continue sucralfate, Protonix, Pepcid
Hypothyroidism
-Continue levothyroxine
Anxiety/depression/schizoaffective disorder
- Continue alprazolam, mirtazapine
- pt unable to reduce stress in life at this time due to family health issues
Diverticulosis
History of vertigo
-Continue meclizine as needed
-Continue benztropine
Chronic back/knee pain/arthritis
-Continue lidocaine patch, tizanidine, pregabalin, Vicodin
Chronic b/l lower extremity edema
-Hold Lasix
DVT prophylaxis
- subq heparin
Code status: DNR/DNI
Diet: regular
Anticipated Discharge: 24 - 48 hours
Subjective/Interval History
-
Date of Service: July 26, 2024
Ms. Avis Leslie is a 69yo F pmh prior CVA, COPD, asthma, HTN, HLD, NIDDM admitted 07/23 for pneumonia. SOB worsening, still feels like she has to cough something up. Nonproductive cough
Objective Data
-
Labs:
Laboratory Results
07/26/24
06:40
WBC 3.8 L
Hgb 10.6 L
Hct 31.3 L
Plt Count 171
Sodium Pending
Potassium Pending
Chloride Pending
Carbon Dioxide Pending
BUN Pending
Creatinine Pending
Glucose Pending
Calcium Pending
Vital Signs:
Vital Signs
Temp Pulse Resp BP Pulse Ox
98.0 F 72 16 125/63 95
07/26/24 03:00 07/26/24 07:31 07/26/24 07:31 07/26/24 03:00 07/26/24 07:31
I&O
07/25/24 07/26/24 07/27/24
06:59 06:59 06:59
Intake Total 1959 720 / 720
Balance 1959 720 / 720
Review of Systems
-
History Source: Patient
Constitutional: Reports No Symptoms
EENT: Reports No Symptoms Reported
Respiratory: Reports Cough and Trouble Breathing
Cardiac: Reports No Symptoms
Abdomen/GI: Reports No Symptoms
Musculoskeletal: Reports Muscle Pain (abdominal muscles)
Physical Exam
-
General: Well Developed and Well Nourished
HEENT: Normocephalic, Atraumatic and Other (edentulous)
Respiratory: Wheezes and Accessory Resp Muscle Use
Cardiac: Regular Rhythm and S1/S2
GI: Soft, Nontender, Nondistended, Normal Bowel Sounds and No Hepatosplenomegaly
Musculoskeletal: No Clubbing, No Edema and Cyanosis (lips)
Skin: Warm and Dry
Neuro: Awake and AO x 3
[2024-07-26 07:50] LABS: Procalcitonin 2.32 ng/ml (0.0-0.25)
[2024-07-26] MEDS: ZANAFLEX 2 MG PO ×2 (08:24→21:45)
[2024-07-26] MEDS: VITAMIN B-12 1000 MCG PO (08:24)
[2024-07-26] MEDS: NAMENDA 10 MG PO ×2 (08:24→21:47)
[2024-07-26] MEDS: LIPITOR 80 MG PO (08:24)
[2024-07-26] MEDS: HEPARIN 5000 UNITS SC ×2 (08:24→21:47)
[2024-07-26] MEDS: PLAVIX 75 MG PO (08:24)
[2024-07-26] MEDS: PROTONIX 40 MG PO ×2 (08:24→21:45)
[2024-07-26] MEDS: DIOVAN 20 MG PO (08:25)
[2024-07-26] MEDS: NORCO 7.5/325 1 TABLET PO ×2 (08:29→17:08)
--- NOTE | 2024-07-26 09:07 | W.PN.PUL.V3 ---
Today's Communication / Plan
-
Intensify mucolytic's
Mucus clearing devices
Recheck sputum culture
Low threshold for antibiotic reinitiation with CT findings and procalcitonin levels
Begin Decadron
Assessment
-
69-year-old with a history of asthma followed by Dr. Szymanski, suspected silent aspiration, obstructive sleep apnea, hypertension, hyperlipidemia, diabetes, CVA, cognitive impairment as well as anxiety/depression/schizoaffective disorder who
presented with nonproductive cough, shortness of breath after recent hospitalization for community-acquired pneumonia 07/08/2024 and pulmonary consulted for chronic cough 07/24/2024.
Sepsis-fever, tachycardia and tachypnea and persistent pneumonia
Recurrent pneumonia
Aspiration risk-repeatedly negative workup
Chronic cough
Asthma without acute exacerbation
Mild zefibo-ecmpgunmux-ijntqejbty 10.2
Mild hyperglycemia
Conditions present prior to admission:
Hospitalization March 2024-right lower lobe pneumonia-aspiration suspected
Hospitalization 06/2024-right lower lobe pneumonia
Asthma-followed by Dr. Szymanski-maintained on Symbicort and Xopenex as well as Aurea, Astelin and Flonase
Pulmonary nodule-7-8 mm stable
Recurrent pneumonia-aspiration suspected
EVELINA resolved with weight loss.
Obesity/bariatric surgery.
Hypertension.
Hyperlipidemia.
Diabetes.
Hypothyroid.
History CVA.
Anxiety/depression/schizoaffective disorder.
Cognitive dysfunction.
GERD.
Vertigo.
Diverticulosis.
Cholecystectomy. Right knee repair. Tonsillectomy. Carpal tunnel 2020 11/2022. Cataract. Glaucoma. Hysterectomy.
Plan
Respiratory decompensation in the form of a chronic cough and persistent but slightly improved opacification on chest x-ray could be consistent with recurrent silent aspiration pneumonia, however, repetitive workup reveals no evidence for aspiration
Supplemental oxygen as needed-attempt to wean
Assess discharge supplemental oxygen needs
Mucolytic's
Aspiration precautions
Speech therapy evaluation-evaluation noted, regular diet with thin liquids, video swallow if silent aspiration suspected
Video swallow if needed-see above.
No diet modifications required
Nebulizers as needed.
Repeat CT chest-07/25/2024-moderate patchy pneumonia throughout the left lung including left upper lobe, lingula which is new compared to prior study, moderate patchy airspace disease throughout the left lower lobe consistent with pneumonia has
worsened in the interval since prior study, 7 mm nodule demonstrated 04/24/2024 not well-visualized
Consider bronchoscopy if recurrent infiltrates without clear etiology-hold off for now
Begin steroids with ongoing wheezing and unexplained pulmonary infiltrates
Check immunoglobulin level with recurrent infections
Cultures reviewed.
MRSA screen negative.
Influenza negative.
Blood cultures negative.
Unable to produce sputum
Empiric antibiotics discontinued
Procalcitonin elevated 2.32
Obtain sputum sample if possible with low threshold for antibiotic reinitiation with elevated procalcitonin and CT findings
Barium swallow/upper GI series completed without evidence of dysmotility and without evidence for complications of the gastric bypass.
GI evaluation--correspondence reviewed-they have signed off
Follow hemoglobin
Transfuse if needed
Monitor blood sugar
Insulin supplementation if needed
DVT prophylaxis-on subcu heparin
GI prophylaxis-on Pepcid at night
Nutrition with aspiration precautions
Early mobilization
Reviewed with nursing
Patient was last seen by Dr. Szymanski 03/07/2024 and has a follow-up appointment 04/05/2024 at 4:15 PM
Diagnostic data:
CXR 10/29/22: New areas of linear interstitial airspace disease in the right middle lobe and basilar portion of the left lower lobe suggesting interstitial pneumonia/bronchiolitis
Chest x-ray 03/02/2024-��NAD
Chest x-ray 03/22/20245082-pjven-mnlmu pneumonia, no large parapneumonic effusion is appreciated
Chest x-ray 07/07/2024-left lower lobe pneumonia
Chest x-ray 07/23/2024-persistent patchy opacification in the left lung with some improvement compared to 07/10/2024, mildly elevated right hemidiaphragm
CT chest 04/24/2024-resolution of right pneumonia, low lung volumes with scattered bilateral subsegmental atelectasis, stable 7 mm solid pulmonary nodule
CT scan08/09/2023: Reviewed,Jermaine Stanley 08/24/2023 08:54:12 AM >��1. Stable left lisa-fissural nodule, likely benign.2.� Interval resolution of previously seen left upper lobe groundglass densities.��������-��������CXR 05/16/2023: Right
upper lobe pneumonia appears unchanged. Linear foci in the left lower lobe may be subsegmental atelectasis.��������-��������
CT chest 04/12/2023: Previous opacity/pneumonia in the right lower lobe has resolved. Mild scarring versus atelectasis in the mid to lower lung zones. A perifissural nodule in the left mid to lower lung zone has remained stable. Multiple subtle
groundglass nodular opacities have developed in the left upper lobe measuring up to 8.4 mm.��������-
VSE 01/12/2023: Upper laryngeal penetration. No aspiration.��������-��������
CT chest 01/10/2023:showed no evidence for central pulmonary embolism. Patchy right lower lobe opacification, most likely pneumonia. Prominence of pulmonary interstitium some vague groundglass opacities bilaterally, sparing the Overload. Mild chronic
fiber changes.��������-��������
CT chest01/10/2023: showed no evidence for acute pulmonary embolism.Right lower lobe airspace disease, likely pneumonia, new compared to November 2022. Mild bilateral groundglass opacities.Stable left lower lobe pulmonary nodule.��������-��������
CT chest 2022:Reviewed, showed 8 mm pleural-based pulmonary nodule slightly increased compared to prior examinations.����������������-��������
CT chest 05/08/2022: Solid pleural-based 8 mm left lower lobe pulmonary nodule. Appearance of slight increase in size. However this can be due to the location and the slice image. Moderate right upper lobe and right lower lobe atelectasis versus
scarring. Mild lingular and right middle lobe atelectasis versus scarring. Gallbladder has been removed.
CT sinus 03/14/2024-unremarkable CT of the sinuses
Lower extremity ultrasound 03/22/2024-no evidence for DVT
PFT 08/24/2023-FEV1 2.16-86%, FVC 2.78-84%, TLC 76%, RV 55%, DLCO 72%, DLCO/VA 89%
Subjective Data
-
Date of Service:
Date of Service: July 26, 2024
Chief Complaint: Pulmonary Follow Up and Dyspnea Follow Up
Subjective:
Still with annoying cough, mostly nonproductive, no increase shortness of breath, chest pain or abdominal pain
Review of Systems
General: Other (Per HPI)
Objective Data
Data Reviewed
Vital Signs / I&O:
Vital Signs
Temp Pulse Resp BP Pulse Ox
98.8 F 72 16 151/69 95
07/26/24 07:20 07/26/24 07:31 07/26/24 07:31 07/26/24 07:20 07/26/24 07:31
Intake and Output
07/25/24 07/26/24 07/27/24
06:59 06:59 06:59
Intake Total 1959 720 / 720
Balance 1959 720 / 720
SaO2: 95
Nasal Cannula flow liters per minute: 2
Physical Exam
General: Respiratory Distress (n) and Comfortable
HEENT: Normocephalic, Anicteric and Moist Mucous Membranes
Cardiovascular: Regular Rhythm
Respiratory: Wheeze (n), Crackles ( basilar), Rhonchi (n), Non-Labored Respirations, Accessory Resp Muscle Use (n) and Stridor (n)
GI: Soft, Non Distended and Non Tender
Neurology: Awake, Alert and No Motor Deficits
Skin: Warm, Dry, Good Color, Cyanosis (n) and Jaundice (n)
Labs/Micro/Reports
Lab Data
07/26/24 06:40
Microbiology
07/23/24 09:36 Blood/Venous Blood Culture - Preliminary
No Growth in 48 hours- Final report to follow
07/23/24 09:36 Blood/Venous Blood Culture - Preliminary
No Growth in 48 hours- Final report to follow
07/23/24 23:37 Nose Nasal Screen MRSA (PCR) - Final
MRSA not detected - performed by PCR methodology.
07/23/24 09:37 Nasal Swab Influenza Types A & B (DEL) - Final
Negative for Influenza A & B, NAAT
Negative results must be combined with clinical observations
and patient history.
Nucleic Acid Amplification test (NAAT)performed on the
[employer] platform.
[2024-07-26 09:24] LABS: Blood Urea Nitrogen 5 mg/dl (7-17); Calcium 8.8 mg/dl (8.4-10.2); Carbon Dioxide 22 mmol/L (22-30); Chloride 107 mmol/L (98-107); Estimated Creatinine Clearance 98 ml/min; Glucose 111 mg/dl (70-99); Potassium 3.4 mmol/L (3.5-5.1); Sodium 140 mmol/L (135-145); eGFR > 60.00
[2024-07-26] MEDS: DRISDOL (VITAMIN D2) 50000 UNITS PO (10:03)
[2024-07-26] MEDS: KCL 40 MEQ PO (10:03)
[2024-07-26] MEDS: STERILE WATER FOR INJECTION 10 ML IV (10:03)
[2024-07-26] MEDS: ZITHROMAX 500 MG PO (10:06)
[2024-07-26] MEDS: ROCEPHIN 1000 MG IV (10:06)
--- NOTE | 2024-07-26 11:26 | W.PN.NEURO.1 ---
Today's Communication / Plan
-
.
Subjective/Objective
Subjective Data
Date of Service: July 26, 2024
Neurology Follow up Note
Ms. Leslie reports reports nonproductive cough. She has been afebrile. No reports of dysphagia, dysphonia or diplopia. She is being considered for bronchoscopy if recurrent pulmonary infiltrates are diagnosed.
Vit [id number].
PMH: HTN, DLP, DM, asthma, EVELINA, hypothyroidism, LUCIANO, MDD, /schizoaffective disorder, diverticulosis, vertigo, chronic opioid use; h/o osteoporosis, HLA-B27�posiitve
PSH: BL cataract surgery, gastric bypass, cholecystectomy, R TKA, tonsillectomy. BL CTS, partial hysterectomy; trabeculectomy;
SH: lives with significant other; daugther/her family and younger brother; former RN; nonsmoker; no history of excessive ETOh use; independent in AIDLs
FH: sister-ankylosing spondylitis; Father-COPD; mother-stroke and hypertension
All: NSAIDs, HCTZ, promethazine, Lyrica, zolpidem, celecoxib, Phenothiazines, Gabapentin
ROS:Constitutional: Negative. Negative for chills, fever and unexpected weight change.
HENT: Negative for ear pain, hearing loss, tinnitus and trouble swallowing.
Eyes: Negative. Negative for photophobia, pain and visual disturbance.
Respiratory: positive for cough
Cardiovascular: Negative for chest pain, palpitations and leg swelling.
Gastrointestinal: Negative for abdominal pain and vomiting.
Endocrine: Negative. Negative for cold intolerance.
Genitourinary: Negative for dysuria, flank pain and urgency.
Musculoskeletal: positive for chronic back pain and R knee pain
Skin: Negative for rash.
Allergic/Immunologic: Negative. Negative for immunocompromised state.
Neurological: Negative for dizziness, tremors, seizures, speech difficulty, numbness and headaches.
Psychiatric/Behavioral: Negative for behavioral problems, confusion and hallucinations.
General: Well developed. In no acute distress.
Cardio: Regular rate and rhythm without murmur. Extremities are without cyanosis or edema.
Neuro:
Mental Status: Alert, oriented to person, place, month, year. Date was incorrect but very close. Normal attention and recall. Good fund of knowledge. Follows complex requests across the midline. Comprehension, naming, and repetition intact.
Immediate recall 3/3.
Cranial Nerves: Pupils are equally round, surgical. EOMs full. Visual madrigal full to confrontation. No ptosis. No nystagmus. V1-V3 intact to light touch and pinprick bilaterally, symmetric. Face symmetric. Normal hearing AU. The palate
elevated well. SCMs and traps 5/5. Tongue midline. Edentulous dysarthria
Motor: Normal bulk and tone. No pronator or arm drift. Strength 5/5 throughout. No clonus.
Reflexes: 1+ throughout
Sensory: normal vibration at the toes
Coordination: No dysmetria or tremor. Oromandibular dyskinesia
Gait: normal stance, limited exam due to IV line
Assessment and Plan:
I. Pulmonary infiltrates. HLA-B27�posiitve
II. Leukoaraiosis
III. Chronic back pain
IV. Edentulous oromandibular dyskinesia
-Fall precautions
-OP neurology follow up in 2-4 weeks.
I personally reviewed all radiology and labs along with past medical records pertinent to current medical problems. Total time spent in patient care is 35 minutes.
Thank you for allowing us to participate in the care of this patient. Please do not hesitate to contact us with any questions or concerns.
Objective Data
Vital Signs
Temp Pulse Resp BP Pulse Ox
37.1 C 72 16 151/69 95
07/26/24 07:20 07/26/24 07:31 07/26/24 07:31 07/26/24 07:20 07/26/24 09:07
Lab Results
07/26/24 06:40
07/26/24 06:40
Sodium 140 mmol/L (135-145) 07/26/24 06:40
Potassium 3.4 mmol/L (3.5-5.1) L 07/26/24 06:40
BUN 5 mg/dl (7-17) L 07/26/24 06:40
Glucose 111 mg/dl (70-99) H 07/26/24 06:40
Calcium 8.8 mg/dl (8.4-10.2) 07/26/24 06:40
Zrc-C-Ffmgzqcyzrl Pept 86.9 pg/ml 07/23/24 09:37
Vitamin B12 Cancelled 07/24/24 14:04
Patient Allergies
celecoxib [From Celebrex] Allergy (Verified 07/07/24 15:00)
Unknown
hydrochlorothiazide Allergy (Verified 07/07/24 15:00)
Unknown
NSAIDS (Non-Steroidal Anti-Inflamma Allergy (Verified 07/07/24 15:00)
Gastric Bypass
pregabalin [From Lyrica] Allergy (Verified 07/07/24 15:00)
Unknown
promethazine Allergy (Verified 07/07/24 15:00)
Unknown
zolpidem [From Ambien] Allergy (Verified 07/07/24 15:00)
Unknown
Vital Signs and Labs
-
Vital Signs and Labs:
Vital Signs
Temp Pulse Resp BP Pulse Ox
37.1 C 72 16 151/69 95
07/26/24 07:20 07/26/24 07:31 07/26/24 07:31 07/26/24 07:20 07/26/24 09:07
Lab Results
07/26/24 06:40
07/26/24 06:40
Sodium 140 mmol/L (135-145) 07/26/24 06:40
Potassium 3.4 mmol/L (3.5-5.1) L 07/26/24 06:40
BUN 5 mg/dl (7-17) L 07/26/24 06:40
Glucose 111 mg/dl (70-99) H 07/26/24 06:40
Calcium 8.8 mg/dl (8.4-10.2) 07/26/24 06:40
Gse-G-Psqteglwjpa Pept 86.9 pg/ml 07/23/24 09:37
Vitamin B12 Cancelled 07/24/24 14:04
Medications
-
Medications:
Generic Name Dose Route Start Last Admin
Trade Name Freq PRN Reason Stop Dose Admin
Acetaminophen 650 mg 07/23/24 16:03
Acetaminophen 325 Mg Tablet PO 08/20/24 16:02
Q4HPRN PRN
mild pain/REAL/temp> 100.4F
Hydrocodone Bitart/Acetaminophen 1 tablet 07/23/24 20:32 07/26/24 08:29
Hydrocodone 7.5 Mg/Acetaminophen 325 Mg Tablet PO 08/06/24 20:31 1 tablet
Q6HPRN PRN Administration
severe pain
Alprazolam 0.5 mg 07/23/24 16:03
Alprazolam 0.5 Mg Tablet PO 08/20/24 16:02
QIDPRN PRN
Mental Health/Anxiety
Atorvastatin Calcium 80 mg 07/24/24 08:00 07/26/24 08:24
Atorvastatin (Lipitor) 80 Mg Tablet PO 08/21/24 07:59 80 mg
DAILY JOE Administration
Azithromycin 250 mg 07/27/24 08:00
Azithromycin 250 Mg Tablet PO
DAILY JOE
Benztropine Mesylate 1 mg 07/23/24 20:00 07/25/24 21:06
Benztropine 1 Mg Tablet PO 08/20/24 19:59 1 mg
BID@1200,2000 JOE Administration
Budesonide/Formoterol Fumarate 2 puff 07/23/24 20:00 07/26/24 07:30
Symbicort Inhaler 160/4.5 INH 11/03/24 19:59 2 puff
R BID JOE Administration
Protocol
Ceftriaxone Sodium 1,000 mg 07/26/24 10:00 07/26/24 10:06
Ceftriaxone 1000 Mg / 10 Ml Vial IV 1,000 mg
Q24H JOE Administration
Clopidogrel Bisulfate 75 mg 07/24/24 08:00 07/26/24 08:24
Clopidogrel 75 Mg Tablet PO 08/21/24 07:59 75 mg
DAILY JOE Administration
Cyanocobalamin 1,000 mcg 07/24/24 08:00 07/26/24 08:24
Cyanocobalamin 1,000 Mcg Tablet PO 08/21/24 07:59 1,000 mcg
Q48H JOE Administration
Cyclobenzaprine HCl 10 mg 07/23/24 22:00 07/25/24 21:04
Cyclobenzaprine 10 Mg Tablet PO 08/20/24 21:59 10 mg
HS JOE Administration
Dexamethasone Sodium Phosphate 4 mg 07/26/24 12:00
Dexamethasone 4 Mg/Ml 1 Ml Vial IV 08/23/24 11:59
Q8H JOE
Donepezil HCl 10 mg 07/23/24 22:00 07/25/24 21:06
Donepezil Hcl 10 Mg Tablet PO 08/20/24 21:59 10 mg
HS JOE Administration
Ergocalciferol 50,000 units 07/26/24 08:00 07/26/24 10:03
Ergocalciferol (Vitamin D-2) 14348 Units Capsule PO 08/23/24 07:59 50,000 units
WE JOE Administration
Famotidine 40 mg 07/23/24 22:00 07/25/24 21:06
Famotidine 40 Mg Tablet PO 08/20/24 21:59 40 mg
HS JOE Administration
Guaifenesin 1,200 mg 07/26/24 20:00
Guaifenesin 600 Mg Extended Release Tablet PO 08/23/24 19:59
Q12 JOE
Heparin Sodium 5,000 units 07/23/24 20:00 07/26/24 08:24
Heparin 5,000 Units/Ml 1 Ml Vial SC 08/20/24 19:59 5,000 units
Q12 JOE Administration
Levalbuterol 2 puff 07/23/24 16:03
Levalbuterol 45 Mcg Inhaler INH
R Q6HPRN PRN
sob
Protocol
Levothyroxine Sodium 50 mcg 07/24/24 06:00 07/26/24 05:30
Levothyroxine 50 Mcg Tablet PO 08/21/24 05:59 50 mcg
DAILY@0600 JOE Administration
Lidocaine/Prilocaine 0 gram 07/23/24 16:03 07/24/24 05:50
Lidocaine 2.5%/Prilocaine 2.5% (Cream) 5 Gram Tube TOPICAL 08/20/24 16:02 5 gram
Q8HPRN PRN Administration
breakthrough mild pain
Meclizine HCl 25 mg 07/23/24 16:03
Meclizine 12.5 Mg Tablet PO 08/20/24 16:02
BIDPRN PRN
verigo
Memantine 10 mg 07/23/24 20:00 07/26/24 08:24
Memantine 10 Mg Tablet PO 08/20/24 19:59 10 mg
BID JOE Administration
Mirtazapine 15 mg/ Mirtazapine 45 mg 07/23/24 22:00 07/25/24 21:05
30 mg PO 08/20/24 21:59 45 mg
HS JOE Administration
Pt Own Ztlido 1.8% 0 unit 07/23/24 22:00 07/25/24 21:09
Top Up To 3 Patches TOPICAL 08/20/24 21:59 1 unit
A Day Max On Hs HS JOE Administration
Ondansetron HCl 4 mg 07/23/24 16:03
Ondansetron 4 Mg/2 Ml Vial IV 08/20/24 16:02
Q6HPRN PRN
nausea and vomiting
Pantoprazole Sodium 40 mg 07/23/24 20:00 07/26/24 08:24
Pantoprazole 40 Mg Delayed Release Tablet PO 08/20/24 19:59 40 mg
BID JOE Administration
Patch Removal 0 patch 07/24/24 08:00 07/26/24 08:29
Remove Lidocaine Patch REMOVE 08/21/24 07:59 3 patch
DAILY@0800 JOE Administration
Polyethylene Glycol 17 grams 07/25/24 11:36
Polyethylene Glycol Powder 17 Grams Packet PO 08/22/24 11:35
DAILYPRN PRN
constipation
Pregabalin 25 mg 07/23/24 16:03
Pregabalin 25 Mg Capsule PO 08/20/24 16:02
TIDPRN PRN
neuropathy
Senna/Docusate Sodium 1 tablet 07/23/24 22:00 07/25/24 21:04
Docusate W/Senna (Maribel-Colace) Tablet PO 08/20/24 21:59 1 tablet
HS JOE Administration
Sodium Chloride 0 flush 07/23/24 17:00
Sodium Chloride 0.9% (Flush) Syringe IV 08/20/24 16:59
PER PROTOCOL JOE
Sterile Water 10 ml 07/26/24 10:00 07/26/24 10:03
Sterile Water For Injection 10 Ml Vial IV 08/23/24 09:59 10 ml
Q24H JOE Administration
Sucralfate 1 gram 07/23/24 16:03
Sucralfate 1 Gram Tablet PO 08/20/24 16:02
BIDPRN PRN
stomach ulcer
Tizanidine HCl 2 mg 07/23/24 20:00 07/26/24 08:24
Tizanidine 2 Mg Tablet PO 08/20/24 19:59 2 mg
BID JOE Administration
Valsartan 20 mg 07/24/24 08:00 07/26/24 08:25
Valsartan 40 Mg Tablet PO 08/21/24 07:59 20 mg
DAILY JOE Administration
Home Medications
-
Home Medications
famotidine 40 mg tablet 40 mg PO HS Gastrointestinal Issue 05/19/15
atorvastatin 80 mg tablet 80 mg PO DAILY High Cholesterol 01/10/23
benzonatate 200 mg capsule 200 mg PO TIDPRN PRN cough 01/10/23
clopidogrel 75 mg tablet 75 mg PO DAILY Blood Clot Prevention/Tx 01/10/23
donepezil 10 mg tablet 10 mg PO HS Mental Health/Anxiety 01/10/23
levalbuterol tartrate 45 mcg/actuation aerosol inhaler (Xopenex HFA) 2 inh inhalation R Q6HPRN PRN sob ##0 01/10/23
levothyroxine 50 mcg tablet 50 mcg PO DAILY Thyroid 01/10/23
lidocaine 1.8 % topical patch (ZTlido) 3 patch topical DAILYPRN PRN b/l knee,hip and/or lower back 01/10/23
meclizine 12.5 mg tablet 25 mg PO BIDPRN PRN verigo 01/10/23
mirtazapine 45 mg tablet 45 mg PO HS Mental Health/Anxiety 01/10/23
pantoprazole 40 mg tablet,delayed release (Protonix) 40 mg PO BID Gastrointestinal Issue 01/10/23
sennosides 8.6 mg-docusate sodium 50 mg tablet 3 tab-cap PO HS Constipation ##0 01/10/23
valsartan 40 mg tablet 20 mg PO DAILY Blood Pressure 01/10/23
benztropine 1 mg tablet 1 mg PO BID@1200,2000 extrapyrimadal symptoms 01/12/23
cyanocobalamin (vitamin B-12) 1,000 mcg tablet 1,000 mcg PO Q48H Supplement 05/14/23
cyclobenzaprine 10 mg tablet 10 mg PO HS Muscle Spasms 05/14/23
ergocalciferol (vitamin D2) 1,250 mcg (50,000 unit) capsule 1,250 mcg PO WE Supplement 05/14/23
hydrocodone 10 mg-acetaminophen 325 mg tablet 1 tab PO Q6HPRN PRN severe pain 05/14/23
lidocaine-prilocaine 2.5 %-2.5 % topical cream 1 applic topical Q8HPRN PRN breakthrough mild pain 05/14/23
memantine 10 mg tablet 10 mg PO BID Neurological Condition 05/14/23
ondansetron 4 mg disintegrating tablet 4 mg PO BIDPRN PRN nausea 05/14/23
furosemide 40 mg tablet 80 mg PO TUSA Fluid Retention/Swelling 07/13/23
tizanidine 2 mg tablet 2 mg PO BID Muscle Spasms 07/13/23
budesonide-formoterol HFA 160 mcg-4.5 mcg/actuation aerosol inhaler (Symbicort) 2 inh inhalation R BID Lung/Breathing Issues 10/08/23
cranberry 500 mg capsule 4,200 mg PO BID Supplement 03/22/24
fluticasone propionate 50 mcg/actuation nasal spray,suspension 1 spray intranasal BID Congestion 03/22/24
pregabalin 25 mg capsule (Lyrica) 25 mg PO TIDPRN PRN neuropathy 03/22/24
sucralfate 1 gram tablet 1 g PO BIDPRN PRN stomach ulcer 03/22/24
benztropine 2 mg tablet 1 mg PO BID EPS 07/07/24
calcium 500 mg-vitamin D3 100 unit-vitamin K 40 mcg chewable tablet 1 tab DAILY Supplement 07/07/24
potassium chloride 20 mEq tablet,extended release(part/cryst) (Klor-Con M) 20 meq PO BID Electrolyte Repletion 07/07/24
alprazolam 0.5 mg tablet 0.5 mg PO QIDPRN PRN Mental Health/Anxiety 07/23/24
furosemide 40 mg tablet (Lasix) 40 mg PO SUMOWETHFR Fluid Retention/Swelling 07/23/24
[2024-07-26] MEDS: COGENTIN 1 MG PO ×2 (12:48→21:49)
[2024-07-26] MEDS: DECADRON 4 MG IV ×2 (12:48→21:46)
--- NOTE | 2024-07-26 15:16 | CM ---
Reviewed chart, patient functioning at baseline level. Will be able to return home when medically cleared for discharge.
Plan: Case management will continue to follow and assist with discharge planning. Home when stable.
[2024-07-26 15:20] VITALS: BP 157/85
[2024-07-26] MEDS: FLEXERIL 10 MG PO (21:45)
[2024-07-26] MEDS: MUCINEX 1200 MG PO (21:45)
[2024-07-26] MEDS: REMERON 45 MG PO (21:49)
[2024-07-26] MEDS: ARICEPT 10 MG PO (21:49)
[2024-07-26] MEDS: PEPCID 40 MG PO (21:50)
[2024-07-26] MEDS: NON-FORMULARY ITEM 1 UNIT TOPICAL (21:50)
[2024-07-26] MEDS: SENOKOT-S 1 TABLET PO (21:50)
[2024-07-26 23:00] VITALS: BP 177/97
[2024-07-26 23:08] VITALS: BP 140/68
[2024-07-26] MEDS: XANAX 0.5 MG PO (23:12)
[2024-07-27] MEDS: DECADRON 4 MG IV (04:20)
[2024-07-27] MEDS: XANAX 0.5 MG PO ×2 (04:21→18:13)
[2024-07-27] MEDS: XOPENEX HFA 45 MCG INHALER 2 PUFF INH (04:26)
--- NOTE | 2024-07-27 04:55 | PTCARENOTE ---
Pt has a hx of asthma. Was continuously coughing and having trouble catching her breath. Pt SpO2 was 90% on 2L. This RN elevated the head of her bed and applied pulse ox. Respiratory therapy contacted to give rescue inhaler. Pt claimed that she had
her rescue inhaler in her purse, this RN educated pt in the reason why she is not allowed to use her own inhaler during her admission. FIELD SERVICES DIRECTOR made aware due to the delay in respiratory therapy. FIELD SERVICES DIRECTOR recommended giving a prn dose of Xanax for anxiety,
give the scheduled decadron, and ordered Tessalon Pearls. This RN increased O2 to 4L until Respiratory came to bedside. Will continue to monitor, call michelle in reach.
[2024-07-27] MEDS: SYNTHROID 50 MCG PO (05:38)
[2024-07-27 06:43] LABS: IgA 219 mg/dl (70-400); IgM 93 mg/dl (40-230)
[2024-07-27 07:05] LABS: IgG 574 mg/dl (700-1600)
--- NOTE | 2024-07-27 07:19 | W.PN.HOSP.TC ---
Addendum entered and electronically signed by Ryan Matias MD 07/27/24 13:21:
sepsis, left sided pna
-procal 2.5
-iv atb, was stopped but will resume due to chest ct findings and procal
-pulm following
-video swallow completed, without evidence of concern
-mucinex
-aspiratioun precautions
acute hypoxic respiratory failure
-maintain spo2 >90%
-wean o2 as tolerated
-provide mucolytics
07/27/24: c/o of shortness of breath, wheezing on exam, likely has asthma exacterbation
will start steroid po pred and conitue atb
check pre and post peak flow
pulmonary following
Original Note:
Today's Communication/Plan
-
Assessment / Plan
Assessment / Plan
Ms. Avis Leslie is a 69yo F pmh prior CVA, COPD, asthma, HTN, HLD, NIDDM admitted 07/23 for pneumonia.
Sepsis secondary to persistent L-sided pneumonia, possibly aspiration related
- esophagram barium swallow: Normal fluoroscopic examination
- CT chest: Moderate patchy pneumonia throughout the left lung, worse than before
- blood cx: no growth at 72h
- procal 2.2
- azithromycin, ceftriaxone for 5 days
- strep pneumo, legionella urine pending
- recheck sputum culture
- aspiration precautions
- mucolytics
- po prednisone
- pulm, GI, neuro consulted
Anemia
- stable
- monitor cbc
Asthma, COPD, EVELINA
- cont symbicort, xopenex
HTN, HLD
- cont valsartan, statin
DM, overweight
- not on treatment
- monitor
Hx CVA
- cont plavix
Cognitive impairment
-Continue memantine, donepezil
GERD
-Continue sucralfate, Protonix, Pepcid
Hypothyroidism
-Continue levothyroxine
Anxiety/depression/schizoaffective disorder
- Continue alprazolam, mirtazapine
- pt unable to reduce stress in life at this time due to family health issues
Diverticulosis
- senna
History of vertigo
-Continue meclizine as needed
-Continue benztropine
Chronic back/knee pain/arthritis
-Continue lidocaine patch, tizanidine, pregabalin, Vicodin
Chronic b/l lower extremity edema
-Hold Lasix
DVT prophylaxis
- subq heparin
Code status: DNR/DNI
Diet: regular
Anticipated Discharge: 24 - 48 hours
Subjective/Interval History
-
Date of Service: July 27, 2024
Ms. Avis Leslie is a 69yo F pmh prior CVA, COPD, asthma, HTN, HLD, NIDDM admitted 07/23 for pneumonia. Asthma attack this morning. Pt did not sleep well.
Objective Data
-
Labs:
Laboratory Results
07/27/24
06:00
WBC Pending
Hgb Pending
Hct Pending
Plt Count Pending
Sodium Pending
Potassium Pending
Chloride Pending
Carbon Dioxide Pending
BUN Pending
Creatinine Pending
Glucose Pending
Calcium Pending
Vital Signs:
Vital Signs
Temp Pulse Resp BP Pulse Ox
98.6 F 78 24 140/68 95
07/26/24 23:00 07/27/24 04:30 07/27/24 04:30 07/26/24 23:08 07/27/24 04:30
I&O
07/26/24 07/27/24 07/28/24
06:59 06:59 06:59
Intake Total 720 / 720 1320 / 1320
Balance 720 / 720 1320 / 1320
Review of Systems
-
History Source: Patient
All other systems: Reviewed and negative
Constitutional: Reports Fatigue and Sleep Disturbance; Denies Fever or Chills
Respiratory: Reports Cough and Trouble Breathing; Denies Hemoptysis
Cardiac: Reports Other (chest tightness); Denies Chest Pain, Diaphoresis or Palpitations
Abdomen/GI: Reports No Symptoms
Physical Exam
-
General: Well Developed, Well Nourished and Appears in Distress
HEENT: Normocephalic, Atraumatic and Other (edentulous)
Respiratory: Wheezes and Accessory Resp Muscle Use
Cardiac: Regular Rhythm and S1/S2
GI: Soft, Nontender, Nondistended, Normal Bowel Sounds and No Hepatosplenomegaly
Musculoskeletal: No Clubbing, No Cyanosis and No Edema
Skin: Warm and Dry
[2024-07-27 07:39] VITALS: BP 144/99
[2024-07-27] MEDS: SYMBICORT 160/4.5 MCG INHALER 2 PUFF INH ×2 (07:45→19:30)
[2024-07-27 07:46] LABS: Hematocrit 33.4 % (37.0-47.0); Hemoglobin 11.5 g/dL (12.0-16.0); Mean Corp Hgb Conc. 34.4 g/dL (33.0-37.0); Mean Corpuscular Hgb 30.5 pg (27.0-31.0); Mean Corpuscular Volume 88.6 fL (81.0-99.0); Mean Platelet Volume 9.3 fL (7.4-10.4); Platelet Count 175 10^3/uL (130-400); Red Blood Cell Count 3.77 10^6/uL (4.20-5.40); Red Cell Dist. Width 13.1 % (11.5-14.5)
[2024-07-27] MEDS: PLAVIX 75 MG PO (08:09)
[2024-07-27] MEDS: DIOVAN 20 MG PO (08:09)
[2024-07-27] MEDS: MUCINEX 1200 MG PO ×2 (08:09→20:19)
[2024-07-27] MEDS: ZANAFLEX 2 MG PO ×2 (08:09→20:19)
[2024-07-27] MEDS: LIPITOR 80 MG PO (08:09)
[2024-07-27] MEDS: PROTONIX 40 MG PO ×2 (08:09→20:19)
[2024-07-27] MEDS: ZITHROMAX 250 MG PO (08:09)
[2024-07-27] MEDS: NAMENDA 10 MG PO ×2 (08:10→20:20)
[2024-07-27] MEDS: HEPARIN 5000 UNITS SC ×2 (08:10→20:18)
[2024-07-27 08:22] LABS: Blood Urea Nitrogen 5 mg/dl (7-17); Calcium 8.8 mg/dl (8.4-10.2); Carbon Dioxide 26 mmol/L (22-30); Chloride 105 mmol/L (98-107); Estimated Creatinine Clearance 98 ml/min; Glucose 182 mg/dl (70-99); Potassium 4.4 mmol/L (3.5-5.1); Sodium 140 mmol/L (135-145); eGFR > 60.00
[2024-07-27] MEDS: DELTASONE 40 MG PO (09:12)
[2024-07-27] MEDS: ROCEPHIN 1000 MG IV (09:13)
[2024-07-27] MEDS: STERILE WATER FOR INJECTION 10 ML IV (09:13)
[2024-07-27 09:36] VITALS: O2SAT 96
--- NOTE | 2024-07-27 09:54 | W.PN.PUL.V3 ---
Today's Communication / Plan
-
Prednisone
Ceftriaxone and azithromycin reinitiated
Check immunoglobulin levels-consider IV GG
Wean oxygen
Mucus clearing devices
Assessment
-
69-year-old with a history of asthma followed by Dr. Szymanski, suspected silent aspiration, obstructive sleep apnea, hypertension, hyperlipidemia, diabetes, CVA, cognitive impairment as well as anxiety/depression/schizoaffective disorder who
presented with nonproductive cough, shortness of breath after recent hospitalization for community-acquired pneumonia 07/08/2024 and pulmonary consulted for chronic cough 07/24/2024.
Sepsis-fever, tachycardia and tachypnea and persistent pneumonia
Recurrent pneumonia
Aspiration risk-repeatedly negative workup
Chronic cough
Asthma without acute exacerbation
Mild jcordi-nbzgikoqqg-utilkoqoth 10.2
Mild hyperglycemia
Hypogammaglobulinemia
Conditions present prior to admission:
Hospitalization March 2024-right lower lobe pneumonia-aspiration suspected
Hospitalization 06/2024-right lower lobe pneumonia
Asthma-followed by Dr. Szymnaski-maintained on Symbicort and Xopenex as well as Aurea, Astelin and Flonase
Pulmonary nodule-7-8 mm stable
Recurrent pneumonia-aspiration suspected
EVELINA resolved with weight loss.
Obesity/bariatric surgery.
Hypertension.
Hyperlipidemia.
Diabetes.
Hypothyroid.
History CVA.
Anxiety/depression/schizoaffective disorder.
Cognitive dysfunction.
GERD.
Vertigo.
Diverticulosis.
Cholecystectomy. Right knee repair. Tonsillectomy. Carpal tunnel 11/2022. Cataract. Glaucoma. Hysterectomy.
Plan
Respiratory decompensation in the form of a chronic cough and persistent but slightly improved opacification on chest x-ray could be consistent with recurrent silent aspiration pneumonia, however, repetitive workup reveals no evidence for aspiration
Supplemental oxygen as needed-attempt to wean
Assess discharge supplemental oxygen needs
Mucolytic's
Aspiration precautions
Speech therapy evaluation-evaluation noted, regular diet with thin liquids, video swallow if silent aspiration suspected
Video swallow if needed-see above.
No diet modifications required
Nebulizers as needed.
Mucus clearing devices
Incentive spirometry
Flutter
And vest therapy initiated
Repeat CT chest-07/25/2024-moderate patchy pneumonia throughout the left lung including left upper lobe, lingula which is new compared to prior study, moderate patchy airspace disease throughout the left lower lobe consistent with pneumonia has
worsened in the interval since prior study, 7 mm nodule demonstrated 04/24/2024 not well-visualized
Consider bronchoscopy if recurrent infiltrates without clear etiology-hold off for now
Steroids initiated for ongoing wheezing and unexplained pulmonary infiltrates
IgG total 07/26/2024-low 574
IgM normal 93
Immunoglobulin levels 07/26/2024-pending
Cultures reviewed.
MRSA screen negative.
Influenza negative.
Blood cultures negative.
Unable to produce sputum
Empiric antibiotics ukqijvkngtal-jbayhhozfbt-asg hoping to obtain sputum off antibiotics
Procalcitonin elevated 2.32
Repeat sputum culture pending-states had significant mucus after vest therapy
Barium swallow/upper GI series completed without evidence of dysmotility and without evidence for complications of the gastric bypass.
GI evaluation--correspondence reviewed-they have signed off
Follow hemoglobin
Transfuse if needed
Monitor blood sugar
Insulin supplementation if needed
DVT prophylaxis-on subcu heparin
GI prophylaxis-on Pepcid at night
Nutrition with aspiration precautions
Early mobilization
Reviewed with nursing
Patient was last seen by Dr. Szymanski 03/07/2024 and has a follow-up appointment 04/05/2024 at 4:15 PM
Diagnostic data:
CXR 10/29/22: New areas of linear interstitial airspace disease in the right middle lobe and basilar portion of the left lower lobe suggesting interstitial pneumonia/bronchiolitis
Chest x-ray 03/02/2024-��NAD
Chest x-ray 03/22/20244779-gfycz-foqde pneumonia, no large parapneumonic effusion is appreciated
Chest x-ray 07/07/2024-left lower lobe pneumonia
Chest x-ray 07/23/2024-persistent patchy opacification in the left lung with some improvement compared to 07/10/2024, mildly elevated right hemidiaphragm
CT chest 04/24/2024-resolution of right pneumonia, low lung volumes with scattered bilateral subsegmental atelectasis, stable 7 mm solid pulmonary nodule
CT scan08/09/2023: Reviewed,Jermaine Stanley 08/24/2023 08:54:12 AM >��1. Stable left lisa-fissural nodule, likely benign.2.� Interval resolution of previously seen left upper lobe groundglass densities.��������-��������CXR 05/16/2023: Right
upper lobe pneumonia appears unchanged. Linear foci in the left lower lobe may be subsegmental atelectasis.��������-��������
CT chest 04/12/2023: Previous opacity/pneumonia in the right lower lobe has resolved. Mild scarring versus atelectasis in the mid to lower lung zones. A perifissural nodule in the left mid to lower lung zone has remained stable. Multiple subtle
groundglass nodular opacities have developed in the left upper lobe measuring up to 8.4 mm.��������-
VSE 01/12/2023: Upper laryngeal penetration. No aspiration.��������-��������
CT chest 01/10/2023:showed no evidence for central pulmonary embolism. Patchy right lower lobe opacification, most likely pneumonia. Prominence of pulmonary interstitium some vague groundglass opacities bilaterally, sparing the Overload. Mild chronic
fiber changes.��������-��������
CT chest01/10/2023: showed no evidence for acute pulmonary embolism.Right lower lobe airspace disease, likely pneumonia, new compared to November 2022. Mild bilateral groundglass opacities.Stable left lower lobe pulmonary nodule.��������-��������
CT chest 2022:Reviewed, showed 8 mm pleural-based pulmonary nodule slightly increased compared to prior examinations.����������������-��������
CT chest 05/08/2022: Solid pleural-based 8 mm left lower lobe pulmonary nodule. Appearance of slight increase in size. However this can be due to the location and the slice image. Moderate right upper lobe and right lower lobe atelectasis versus
scarring. Mild lingular and right middle lobe atelectasis versus scarring. Gallbladder has been removed.
CT sinus 03/14/2024-unremarkable CT of the sinuses
Lower extremity ultrasound 03/22/2024-no evidence for DVT
PFT 08/24/2023-FEV1 2.16-86%, FVC 2.78-84%, TLC 76%, RV 55%, DLCO 72%, DLCO/VA 89%
Subjective Data
-
Date of Service:
Date of Service: July 27, 2024
Chief Complaint: Pulmonary Follow Up and Dyspnea Follow Up
Subjective:
Episode of shortness of breath, now improved, no complaints of worsening dyspnea, had significant mucus after vest therapy, no chest pain or abdominal pain
Review of Systems
General: Other (Per HPI)
Objective Data
Data Reviewed
Vital Signs / I&O:
Vital Signs
Temp Pulse Resp BP Pulse Ox
98.0 F 84 18 144/99 95
07/27/24 07:39 07/27/24 08:09 07/27/24 07:48 07/27/24 08:09 07/27/24 07:48
Intake and Output
07/26/24 07/27/24 07/28/24
06:59 06:59 06:59
Intake Total 720 / 720 1320 / 1320
Balance 720 / 720 1320 / 1320
SaO2: 95
Nasal Cannula flow liters per minute: 2
Physical Exam
General: Respiratory Distress (n) and Comfortable
HEENT: Normocephalic, Anicteric and Moist Mucous Membranes
Cardiovascular: Regular Rhythm
Respiratory: Wheeze (n), Crackles ( basilar), Rhonchi (n), Non-Labored Respirations, Accessory Resp Muscle Use (n) and Stridor (n)
GI: Soft, Non Distended and Non Tender
Neurology: Awake, Alert and No Motor Deficits
Skin: Warm, Dry, Good Color, Cyanosis (n) and Jaundice (n)
Labs/Micro/Reports
Lab Data
07/27/24 07:27
07/27/24 07:27
Microbiology
07/23/24 09:36 Blood/Venous Blood Culture - Preliminary
No Growth in 4 days- Final report to follow
07/23/24 09:36 Blood/Venous Blood Culture - Preliminary
No Growth in 4 days- Final report to follow
07/23/24 23:37 Nose Nasal Screen MRSA (PCR) - Final
MRSA not detected - performed by PCR methodology.
[2024-07-27] MEDS: COGENTIN 1 MG PO ×2 (11:53→20:20)
[2024-07-27] MEDS: NORCO 7.5/325 1 TABLET PO ×2 (13:49→20:17)
[2024-07-27] MEDS: EMLA CREAM 5 GRAM TOPICAL ×2 (13:53→22:11)
[2024-07-27 15:00] VITALS: BP 170/86
[2024-07-27] MEDS: PEPCID 40 MG PO (22:04)
[2024-07-27] MEDS: SENOKOT-S 1 TABLET PO (22:04)
[2024-07-27] MEDS: ARICEPT 10 MG PO (22:04)
[2024-07-27] MEDS: NON-FORMULARY ITEM 1 UNIT TOPICAL (22:05)
[2024-07-27] MEDS: FLEXERIL 10 MG PO (22:05)
[2024-07-27] MEDS: REMERON 45 MG PO (22:05)
[2024-07-27 23:25] VITALS: BP 114/51
[2024-07-28 03:37] LABS: IgG Subclass 1 343 mg/dL (240-1118); IgG Subclass 2 143 mg/dL (124-549); IgG Subclass 3 9 mg/dL (21-134); IgG Subclass 4 23 mg/dL (1-123)
[2024-07-28] MEDS: NORCO 7.5/325 1 TABLET PO ×3 (04:13→19:30)
[2024-07-28] MEDS: SYNTHROID 50 MCG PO (05:55)
[2024-07-28 07:06] LABS: Hematocrit 31.8 % (37.0-47.0); Hemoglobin 10.5 g/dL (12.0-16.0); Mean Corpuscular Hgb 29.3 pg (27.0-31.0); Mean Corpuscular Volume 88.8 fL (81.0-99.0); Mean Platelet Volume 8.9 fL (7.4-10.4); Platelet Count 182 10^3/uL (130-400); Red Blood Cell Count 3.58 10^6/uL (4.20-5.40); Red Cell Dist. Width 13.4 % (11.5-14.5); White Blood Cell Count 6.7 10^3/uL (4.8-10.8)
[2024-07-28 07:42] LABS: IgE 51 kU/L (<=214)
[2024-07-28 07:47] VITALS: BP 131/60
[2024-07-28] MEDS: PROTONIX 40 MG PO ×2 (07:47→19:30)
[2024-07-28] MEDS: VITAMIN B-12 1000 MCG PO (07:47)
[2024-07-28] MEDS: DIOVAN 20 MG PO (07:47)
[2024-07-28] MEDS: ZITHROMAX 250 MG PO (07:47)
[2024-07-28] MEDS: DELTASONE 40 MG PO (07:48)
[2024-07-28] MEDS: ZANAFLEX 2 MG PO ×2 (07:49→19:30)
[2024-07-28] MEDS: NAMENDA 10 MG PO ×2 (07:49→19:30)
[2024-07-28] MEDS: MUCINEX 1200 MG PO ×2 (07:49→19:30)
[2024-07-28] MEDS: LIPITOR 80 MG PO (07:49)
[2024-07-28] MEDS: PLAVIX 75 MG PO (07:50)
[2024-07-28] MEDS: HEPARIN 5000 UNITS SC ×2 (07:50→19:30)
[2024-07-28] MEDS: SYMBICORT 160/4.5 MCG INHALER 2 PUFF INH ×2 (07:57→19:29)
[2024-07-28 08:21] LABS: Blood Urea Nitrogen 9 mg/dl (7-17); Calcium 9.1 mg/dl (8.4-10.2); Carbon Dioxide 27 mmol/L (22-30); Chloride 105 mmol/L (98-107); Estimated Creatinine Clearance 84 ml/min; Glucose 88 mg/dl (70-99); Potassium 4.2 mmol/L (3.5-5.1); Sodium 142 mmol/L (135-145); eGFR > 60.00
--- NOTE | 2024-07-28 08:41 | W.PN.HOSP.TC ---
Addendum entered and electronically signed by Ryan Matias MD 07/28/24 13:58:
sepsis, left sided pna
-procal 2.5
-iv atb, was stopped but will resume due to chest ct findings and procal
-pulm following
-video swallow completed, without evidence of concern
-mucinex
-aspiratioun precautions
acute hypoxic respiratory failure
-maintain spo2 >90%
-wean o2 as tolerated
-provide mucolytics
Original Note:
Today's Communication/Plan
-
wean O2
Assessment / Plan
Assessment / Plan
Ms. Avis Leslie is a 69yo F h prior CVA, COPD, asthma, HTN, HLD, NIDDM admitted 07/23 for pneumonia.
Sepsis secondary to persistent L-sided pneumonia, possibly aspiration related
- esophagram barium swallow: Normal fluoroscopic examination
- CT chest: Moderate patchy pneumonia throughout the left lung, worse than before
- blood cx: no growth
- azithromycin, ceftriaxone for 5 days
- aspiration precautions
- mucolytics
- po prednisone
- pulm, GI, neuro consulted
- wean O2
Anemia
- stable
- monitor cbc
Asthma, COPD, EVELINA
- cont symbicort, xopenex
HTN, HLD
- cont valsartan, statin
DM, overweight
- not on treatment
- monitor
Hx CVA
- cont plavix
Cognitive impairment
-Continue memantine, donepezil
GERD
-Continue sucralfate, Protonix, Pepcid
Hypothyroidism
-Continue levothyroxine
Anxiety/depression/schizoaffective disorder
- Continue alprazolam, mirtazapine
- pt unable to reduce stress in life at this time due to family health issues
Diverticulosis
- senna
History of vertigo
-Continue meclizine as needed
-Continue benztropine
Chronic back/knee pain/arthritis
-Continue lidocaine patch, tizanidine, pregabalin, Vicodin
Chronic b/l lower extremity edema
-Hold Lasix
DVT prophylaxis
- subq heparin
Code status: DNR/DNI
Diet: regular
Anticipated Discharge: 24 - 48 hours
Subjective/Interval History
-
Date of Service: July 28, 2024
Ms. Avis Leslie is a 69yo F pmh prior CVA, COPD, asthma, HTN, HLD, NIDDM admitted 07/23 for pneumonia. No acute events overnight
Objective Data
-
Labs:
Laboratory Results
07/28/24
07:01
WBC 6.7
Hgb 10.5 L
Hct 31.8 L
Plt Count 182
Sodium 142
Potassium 4.2
Chloride 105
Carbon Dioxide 27
BUN 9
Creatinine 0.7
Glucose 88
Calcium 9.1
Vital Signs:
Vital Signs
Temp Pulse Resp BP Pulse Ox
97.6 F 85 16 131/60 95
07/28/24 07:47 07/28/24 08:03 07/28/24 08:03 07/28/24 07:47 07/28/24 08:03
I&O
07/27/24 07/28/24 07/29/24
06:59 06:59 06:59
Intake Total 1320 / 1320 720 / 720
Balance 1320 / 1320 720 / 720
Review of Systems
-
History Source: Patient
Constitutional: Reports No Symptoms
Respiratory: Reports Cough and Trouble Breathing
Cardiac: Reports No Symptoms
Abdomen/GI: Reports No Symptoms
Genitourinary: Reports No Symptoms
Musculoskeletal: Reports No Symptoms
Physical Exam
-
General: Well Developed and Well Nourished
HEENT: Normocephalic and Atraumatic
Respiratory: Wheezes
Cardiac: Regular Rhythm and S1/S2
GI: Soft, Nontender, Nondistended and Normal Bowel Sounds
Musculoskeletal: No Clubbing, No Cyanosis and No Edema
Skin: Warm and Dry
[2024-07-28] MEDS: STERILE WATER FOR INJECTION 10 ML IV (09:27)
[2024-07-28] MEDS: ROCEPHIN 1000 MG IV (09:27)
--- NOTE | 2024-07-28 10:24 | W.PN.PUL.V3 ---
Today's Communication / Plan
-
Prednisone 40 mg-no change.
Mucolytic some mucus clearing devices continue
Empiric antibiotics continue
Assessment
-
69-year-old with a history of asthma followed by Dr. Szymanski, suspected silent aspiration, obstructive sleep apnea, hypertension, hyperlipidemia, diabetes, CVA, cognitive impairment as well as anxiety/depression/schizoaffective disorder who
presented with nonproductive cough, shortness of breath after recent hospitalization for community-acquired pneumonia 07/08/2024 and pulmonary consulted for chronic cough 07/24/2024.
Sepsis-fever, tachycardia and tachypnea and persistent pneumonia
Recurrent pneumonia
Aspiration risk-repeatedly negative workup
Chronic cough
Asthma with acute exacerbation
Mild nvxhwp-hqnceemiyh-hrgbacqnnf 10.2
Mild hyperglycemia
Hypogammaglobulinemia
Conditions present prior to admission:
Hospitalization March 2024-right lower lobe pneumonia-aspiration suspected
Hospitalization 06/2024-right lower lobe pneumonia
Asthma-followed by Dr. Szymanski-maintained on Symbicort and Xopenex as well as Aurea, Astelin and Flonase
Pulmonary nodule-7-8 mm stable
Recurrent pneumonia-aspiration suspected
EVELINA resolved with weight loss.
Obesity/bariatric surgery.
Hypertension.
Hyperlipidemia.
Diabetes.
Hypothyroid.
History CVA.
Anxiety/depression/schizoaffective disorder.
Cognitive dysfunction.
GERD.
Vertigo.
Diverticulosis.
Cholecystectomy. Right knee repair. Tonsillectomy. Carpal tunnel 11/2022. Cataract. Glaucoma. Hysterectomy.
Plan
Respiratory decompensation in the form of a chronic cough and persistent but slightly improved opacification on chest x-ray could be consistent with recurrent silent aspiration pneumonia, however, repetitive workup reveals no evidence for aspiration
Supplemental oxygen as needed-attempt to wean
Assess discharge supplemental oxygen needs
Mucolytic's
Aspiration precautions
Speech therapy evaluation-evaluation noted, regular diet with thin liquids, video swallow if silent aspiration suspected
Video swallow if needed-see above.
No diet modifications required
Nebulizers as needed.
Mucus clearing devices
Incentive spirometry
Flutter.
Vest therapy continues twice daily-patient feels benefit
Steroids added for persistent wheezing-prednisone 40 mg with slow taper
Repeat CT chest-07/25/2024-moderate patchy pneumonia throughout the left lung including left upper lobe, lingula which is new compared to prior study, moderate patchy airspace disease throughout the left lower lobe consistent with pneumonia has
worsened in the interval since prior study, 7 mm nodule demonstrated 04/24/2024 not well-visualized
Consider bronchoscopy if recurrent infiltrates without clear etiology-hold off for now
Steroids initiated for ongoing wheezing and unexplained pulmonary infiltrates
IgG total 07/26/2024-low 574
IgM normal 93
Immunoglobulin levels 07/26/2024- IgG 3-low at 9.
IgE-51
Consider outpatient replacement therapy with recurrent infections
Cultures reviewed.
MRSA screen negative.
Influenza negative.
Blood cultures negative.
Unable to produce sputum
Empiric antibiotics ynmegxzgqneg-ybmxgjmrmcr-xly hoping to obtain sputum off antibiotics
Procalcitonin elevated 2.32
Repeat sputum culture pending-states had significant mucus after vest therapy
Barium swallow/upper GI series completed without evidence of dysmotility and without evidence for complications of the gastric bypass.
GI evaluation--correspondence reviewed-they have signed off
Follow hemoglobin
Transfuse if needed
Monitor blood sugar
Insulin supplementation if needed
DVT prophylaxis-on subcu heparin
GI prophylaxis-on Pepcid at night
Nutrition with aspiration precautions
Early mobilization
Reviewed with nursing
Patient was last seen by Dr. Szymanski 03/07/2024 and has a follow-up appointment 04/05/2024 at 4:15 PM.-Consider gamma globulin replacement therapy or even Biologics
Diagnostic data:
CXR 10/29/22: New areas of linear interstitial airspace disease in the right middle lobe and basilar portion of the left lower lobe suggesting interstitial pneumonia/bronchiolitis
Chest x-ray 03/02/2024-��NAD
Chest x-ray 03/22/20242884-xxkfn-vhszm pneumonia, no large parapneumonic effusion is appreciated
Chest x-ray 07/07/2024-left lower lobe pneumonia
Chest x-ray 07/23/2024-persistent patchy opacification in the left lung with some improvement compared to 07/10/2024, mildly elevated right hemidiaphragm
CT chest 04/24/2024-resolution of right pneumonia, low lung volumes with scattered bilateral subsegmental atelectasis, stable 7 mm solid pulmonary nodule
CT scan08/09/2023: Reviewed,Jermaine Stanley 08/24/2023 08:54:12 AM >��1. Stable left lisa-fissural nodule, likely benign.2.� Interval resolution of previously seen left upper lobe groundglass densities.��������-��������CXR 05/16/2023: Right
upper lobe pneumonia appears unchanged. Linear foci in the left lower lobe may be subsegmental atelectasis.��������-��������
CT chest 04/12/2023: Previous opacity/pneumonia in the right lower lobe has resolved. Mild scarring versus atelectasis in the mid to lower lung zones. A perifissural nodule in the left mid to lower lung zone has remained stable. Multiple subtle
groundglass nodular opacities have developed in the left upper lobe measuring up to 8.4 mm.��������-
VSE 01/12/2023: Upper laryngeal penetration. No aspiration.��������-��������
CT chest 01/10/2023:showed no evidence for central pulmonary embolism. Patchy right lower lobe opacification, most likely pneumonia. Prominence of pulmonary interstitium some vague groundglass opacities bilaterally, sparing the Overload. Mild chronic
fiber changes.��������-��������
CT chest01/10/2023: showed no evidence for acute pulmonary embolism.Right lower lobe airspace disease, likely pneumonia, new compared to November 2022. Mild bilateral groundglass opacities.Stable left lower lobe pulmonary nodule.��������-��������
CT chest 2022:Reviewed, showed 8 mm pleural-based pulmonary nodule slightly increased compared to prior examinations.����������������-��������
CT chest 05/08/2022: Solid pleural-based 8 mm left lower lobe pulmonary nodule. Appearance of slight increase in size. However this can be due to the location and the slice image. Moderate right upper lobe and right lower lobe atelectasis versus
scarring. Mild lingular and right middle lobe atelectasis versus scarring. Gallbladder has been removed.
CT sinus 03/14/2024-unremarkable CT of the sinuses
Lower extremity ultrasound 03/22/2024-no evidence for DVT
PFT 08/24/2023-FEV1 2.16-86%, FVC 2.78-84%, TLC 76%, RV 55%, DLCO 72%, DLCO/VA 89%
Subjective Data
-
Date of Service:
Date of Service: July 28, 2024
Chief Complaint: Pulmonary Follow Up and Dyspnea Follow Up
Subjective:
Overall, feels a little better, cough improved, still with some chest congestion and wheezing, no chest pain or abdominal pain
Review of Systems
General: Other ( per HPI)
Objective Data
Data Reviewed
Vital Signs / I&O:
Vital Signs
Temp Pulse Resp BP Pulse Ox
97.6 F 85 16 131/60 95
07/28/24 07:47 07/28/24 08:03 07/28/24 08:03 07/28/24 07:47 07/28/24 08:03
Intake and Output
07/27/24 07/28/24 07/29/24
06:59 06:59 06:59
Intake Total 1320 / 1320 720 / 720
Balance 1320 / 1320 720 / 720
SaO2: 95
Nasal Cannula flow liters per minute: 1
Physical Exam
General: Respiratory Distress (n) and Comfortable
HEENT: Normocephalic, Anicteric and Moist Mucous Membranes
Cardiovascular: Regular Rhythm
Respiratory: Wheeze (n), Crackles ( basilar), Rhonchi (n), Non-Labored Respirations, Accessory Resp Muscle Use (n) and Stridor (n)
GI: Soft, Non Distended and Non Tender
Neurology: Awake, Alert and No Motor Deficits
Skin: Warm, Dry, Good Color, Cyanosis (n) and Jaundice (n)
Labs/Micro/Reports
Lab Data
07/28/24 07:01
07/28/24 07:01
Microbiology
07/23/24 09:36 Blood/Venous Blood Culture - Final
No Growth - Final Report
07/23/24 09:36 Blood/Venous Blood Culture - Final
No Growth - Final Report
07/27/24 14:31 Sputum Respiratory Culture - Final
07/27/24 14:31 Sputum Gram Stain - Final
[2024-07-28] MEDS: COGENTIN 1 MG PO ×2 (11:26→19:30)
[2024-07-28] MEDS: XANAX 0.5 MG PO (14:53)
[2024-07-28 15:04] VITALS: BP 162/79
[2024-07-28] MEDS: REMERON 45 MG PO (20:54)
[2024-07-28] MEDS: PEPCID 40 MG PO (20:55)
[2024-07-28] MEDS: NON-FORMULARY ITEM 1 UNIT TOPICAL (20:55)
[2024-07-28] MEDS: FLEXERIL 10 MG PO (20:55)
[2024-07-28] MEDS: SENOKOT-S 1 TABLET PO (20:55)
[2024-07-28] MEDS: ARICEPT 10 MG PO (20:55)
[2024-07-28 21:27] LABS: COVID-19 Antigen Negative (Negative)
[2024-07-28 23:56] VITALS: BP 158/85
[2024-07-29] MEDS: NORCO 7.5/325 1 TABLET PO ×4 (02:03→22:47)
[2024-07-29] MEDS: SYNTHROID 50 MCG PO (05:40)
[2024-07-29 07:00] VITALS: BP 160/86
--- NOTE | 2024-07-29 07:39 | W.PN.HOSP.TC ---
Addendum entered and electronically signed by Ryan Matias MD 07/29/24 13:48:
sepsis, left sided pna
-procal 2.5
-iv atb, tomorrow is day 02/19
-pulm following
-video swallow completed, without evidence of concern
-mucinex
-aspiratioun precautions
acute hypoxic respiratory failure
-maintain spo2 >90%
-wean o2 as tolerated
-provide mucolytics
symtpomatic and sob wit hambulation with spo2 of 91%. Will reattempt tomorrow if improved then DC home
Original Note:
Today's Communication/Plan
-
ambulatory pulse ox
Assessment / Plan
Assessment / Plan
Ms. Avis Leslie is a 69yo F pmh prior CVA, COPD, asthma, HTN, HLD, NIDDM admitted 07/23 for pneumonia.
Sepsis secondary to persistent L-sided pneumonia, possibly aspiration related
- esophagram barium swallow: Normal fluoroscopic examination
- CT chest: Moderate patchy pneumonia throughout the left lung, worse than before
- blood cx: no growth
- azithromycin, ceftriaxone for 5 days
- aspiration precautions
- mucolytics
- po prednisone
- pulm, GI, neuro consulted
- wean O2
- ambulatory pulse ox
Anemia
- stable
- monitor cbc
Asthma, COPD, EVELINA
- cont symbicort, xopenex
- add home spiriva
HTN, HLD
- cont valsartan, statin
DM, overweight
- not on treatment
- monitor
Hx CVA
- cont plavix
Cognitive impairment
-Continue memantine, donepezil
GERD
-Continue sucralfate, Protonix, Pepcid
Hypothyroidism
-Continue levothyroxine
Anxiety/depression/schizoaffective disorder
- Continue alprazolam, mirtazapine
- pt unable to reduce stress in life at this time due to family health issues
Diverticulosis
- senna
History of vertigo
-Continue meclizine as needed
-Continue benztropine
Chronic back/knee pain/arthritis
-Continue lidocaine patch, tizanidine, pregabalin, Vicodin
Chronic b/l lower extremity edema
-Hold Lasix
DVT prophylaxis
- subq heparin
Code status: DNR/DNI
Diet: regular
Anticipated Discharge: Within 24 hours
Subjective/Interval History
-
Date of Service: July 29, 2024
Ms. Avis Leslie is a 69yo F pmh prior CVA, COPD, asthma, HTN, HLD, NIDDM admitted 07/23 for pneumonia. Weaned off nasal cannula O2 at 2am. Gets SOB when ambulating. No longer feels like she has to cough something up out of her lungs.
Objective Data
-
Labs:
Laboratory Results
07/29/24
06:00
WBC Pending
Hgb Pending
Hct Pending
Plt Count Pending
Sodium Pending
Potassium Pending
Chloride Pending
Carbon Dioxide Pending
BUN Pending
Creatinine Pending
Glucose Pending
Calcium Pending
Vital Signs:
Vital Signs
Temp Pulse Resp BP Pulse Ox
97.8 F 92 18 158/85 95
07/28/24 23:56 07/28/24 19:35 07/28/24 23:56 07/28/24 23:56 07/29/24 01:16
I&O
07/28/24 07/29/24 07/30/24
06:59 06:59 06:59
Intake Total 720 / 720 960 / 960
Balance 720 / 720 960 / 960
Review of Systems
-
History Source: Patient
All other systems: Reviewed and negative
Constitutional: Reports No Symptoms
Respiratory: Reports Trouble Breathing; Denies Pleurisy
Cardiac: Reports No Symptoms
Abdomen/GI: Reports No Symptoms
Musculoskeletal: Reports No Symptoms
Neuro: Reports No Symptoms
Physical Exam
-
General: Well Developed and Well Nourished
HEENT: Normocephalic, Atraumatic and Moist Mucous Membranes
Respiratory: Wheezes
Cardiac: Regular Rhythm and S1/S2
GI: Soft, Nontender, Nondistended, Normal Bowel Sounds and No Hepatosplenomegaly
Musculoskeletal: No Clubbing, No Cyanosis and No Edema
Skin: Warm and Dry
Neuro: Awake and AO x 3
Psych: Calm
[2024-07-29] MEDS: SYMBICORT 160/4.5 MCG INHALER 2 PUFF INH ×2 (08:21→19:36)
[2024-07-29] MEDS: ZANAFLEX 2 MG PO ×2 (08:27→19:57)
[2024-07-29] MEDS: PLAVIX 75 MG PO (08:27)
[2024-07-29] MEDS: DELTASONE 40 MG PO (08:27)
[2024-07-29] MEDS: MUCINEX 1200 MG PO ×2 (08:27→19:57)
[2024-07-29] MEDS: NAMENDA 10 MG PO ×2 (08:28→19:57)
[2024-07-29] MEDS: LIPITOR 80 MG PO (08:28)
[2024-07-29] MEDS: PROTONIX 40 MG PO ×2 (08:28→19:57)
[2024-07-29] MEDS: HEPARIN 5000 UNITS SC ×2 (08:30→19:57)
[2024-07-29] MEDS: ZITHROMAX 250 MG PO (08:30)
[2024-07-29] MEDS: DIOVAN 20 MG PO (08:30)
[2024-07-29] MEDS: TESSALON PERLES 100 MG PO (09:59)
[2024-07-29] MEDS: STERILE WATER FOR INJECTION 10 ML IV (10:00)
[2024-07-29] MEDS: ROCEPHIN 1000 MG IV (10:00)
[2024-07-29] MEDS: COGENTIN 1 MG PO ×2 (11:32→19:57)
[2024-07-29 12:08] LABS: Blood Urea Nitrogen 8 mg/dl (7-17); Calcium 8.9 mg/dl (8.4-10.2); Carbon Dioxide 26 mmol/L (22-30); Chloride 105 mmol/L (98-107); Estimated Creatinine Clearance 84 ml/min; Glucose 128 mg/dl (70-99); Potassium 3.4 mmol/L (3.5-5.1); Sodium 140 mmol/L (135-145); eGFR > 60.00
[2024-07-29 12:15] LABS: Hematocrit 31.1 % (37.0-47.0); Hemoglobin 10.6 g/dL (12.0-16.0); Mean Corp Hgb Conc. 34.1 g/dL (33.0-37.0); Mean Corpuscular Hgb 30.8 pg (27.0-31.0); Mean Corpuscular Volume 90.4 fL (81.0-99.0); Mean Platelet Volume 9.3 fL (7.4-10.4); Platelet Count 195 10^3/uL (130-400); Red Blood Cell Count 3.44 10^6/uL (4.20-5.40); Red Cell Dist. Width 13.3 % (11.5-14.5); White Blood Cell Count 8.4 10^3/uL (4.8-10.8)
[2024-07-29 12:25] VITALS: BP 157/75; PULSE 89; O2SAT 94
[2024-07-29] MEDS: KCL 40 MEQ PO (13:04)
[2024-07-29 15:00] VITALS: BP 180/87
[2024-07-29 15:16] LABS: Vitamin B1, Whole Blood 105 nmol/L (70-180)
--- NOTE | 2024-07-29 17:02 | W.PN.PUL3 ---
Today's Communication / Plan
-
Prednisone taper
Nebulizers
Inhalers
Antibiotics to complete
Would keep low-dose azithromycin 250 mg every other day upon discharge for anti-inflammatory properties.
Physical therapy as able
Symptomatic management
I agree with possible discharge planning in the next 24 hours.
Assessment
-
69-year-old with a history of asthma followed by Dr. Szymanski, suspected silent aspiration, obstructive sleep apnea, hypertension, hyperlipidemia, diabetes, CVA, cognitive impairment as well as anxiety/depression/schizoaffective disorder who
presented with nonproductive cough, shortness of breath after recent hospitalization for community-acquired pneumonia 07/08/2024 and pulmonary consulted for chronic cough 07/24/2024.
Sepsis-fever, tachycardia and tachypnea and persistent pneumonia
Recurrent pneumonia
Aspiration risk-repeatedly negative workup
Chronic cough
Asthma with acute exacerbation
Mild jwemsa-bppdohwfih-pripsnesyu 10.2
Mild hyperglycemia
Hypogammaglobulinemia
Conditions present prior to admission:
Hospitalization March 2024-right lower lobe pneumonia-aspiration suspected
Hospitalization 06/2024-right lower lobe pneumonia
Asthma-followed by Dr. Szymanski-maintained on Symbicort and Xopenex as well as Aurea, Astelin and Flonase
Pulmonary nodule-7-8 mm stable
Recurrent pneumonia-aspiration suspected
EVELINA resolved with weight loss.
Obesity/bariatric surgery.
Hypertension.
Hyperlipidemia.
Diabetes.
Hypothyroid.
History CVA.
Anxiety/depression/schizoaffective disorder.
Cognitive dysfunction.
GERD.
Vertigo.
Diverticulosis.
Cholecystectomy. Right knee repair. Tonsillectomy. Carpal tunnel 2020 11/2022. Cataract. Glaucoma. Hysterectomy.
Plan
Respiratory decompensation in the form of a chronic cough and persistent but slightly improved opacification on chest x-ray could be consistent with recurrent silent aspiration pneumonia, however, repetitive workup reveals no evidence for aspiration
No need for oxygen supplementation. Improved.
Continues to report shortness of breath.
Speech therapy evaluation-evaluation noted, regular diet with thin liquids, video swallow if silent aspiration suspected
Video swallow if needed-see above.
No diet modifications required
Patient does have significant acid reflux symptoms post p bypass surgery
Nebulizers as needed.
Mucus clearing devices
Incentive spirometry
Continue Acapella device
Vest therapy continues twice daily-patient feels benefit-does not have bronchiectasis on CAT scan.
Steroids added for persistent wheezing-prednisone 40 mg with slow taper, decrease by 10 mg every 72 hours to off.
Repeat CT chest-07/25/2024-moderate patchy pneumonia throughout the left lung including left upper lobe, lingula which is new compared to prior study, moderate patchy airspace disease throughout the left lower lobe consistent with pneumonia has
worsened in the interval since prior study, 7 mm nodule demonstrated 04/24/2024 not well-visualized
Consider bronchoscopy if recurrent infiltrates without clear etiology-hold off for now
Steroids initiated for ongoing wheezing and unexplained pulmonary infiltrates
IgG total 07/26/2024-low 574
IgM normal 93
Immunoglobulin levels 07/26/2024- IgG 3-low at 9.
IgE-51
She has been evaluated for hypogammaglobulinemia in the outpatient setting by immunology. They did not recommend augmentation. Will need to repeat and consider reevaluation in the outpatient setting. In the acute settings with acute infection low
levels may not be reflective of stable condition.
Cultures reviewed.
MRSA screen negative.
Influenza negative.
Blood cultures negative.
Unable to produce sputum
Completed 5 days of antibiotics today.
Procalcitonin elevated 2.32
Historically her infiltrates clear after antibiotic therapy suggesting infectious etiology more than inflammatory process such as cryptogenic pneumonia.
She has gone long periods without recurrence of chronic steroids or antibiotics.
She has undergone autoimmune evaluation in the outpatient setting as well with negative results.
Barium swallow/upper GI series completed without evidence of dysmotility and without evidence for complications of the gastric bypass.
GI evaluation--correspondence reviewed-they have signed off
Monitor blood sugar
Insulin supplementation if needed
DVT prophylaxis-on subcu heparin
GI prophylaxis-on Pepcid at night
Patient was last seen by Dr. Szymanski 03/07/2024 and has a follow-up appointment 04/05/2024 at 4:15 PM.
Diagnostic data:
CXR 10/29/22: New areas of linear interstitial airspace disease in the right middle lobe and basilar portion of the left lower lobe suggesting interstitial pneumonia/bronchiolitis
Chest x-ray 03/02/2024-��NAD
Chest x-ray 03/22/20244323-fzywl-ikdtu pneumonia, no large parapneumonic effusion is appreciated
Chest x-ray 07/07/2024-left lower lobe pneumonia
Chest x-ray 07/23/2024-persistent patchy opacification in the left lung with some improvement compared to 07/10/2024, mildly elevated right hemidiaphragm
CT chest 04/24/2024-resolution of right pneumonia, low lung volumes with scattered bilateral subsegmental atelectasis, stable 7 mm solid pulmonary nodule
CT scan08/09/2023: Reviewed,Jermaine Stanley 08/24/2023 08:54:12 AM >��1. Stable left lisa-fissural nodule, likely benign.2.� Interval resolution of previously seen left upper lobe groundglass densities.��������-��������CXR 05/16/2023: Right
upper lobe pneumonia appears unchanged. Linear foci in the left lower lobe may be subsegmental atelectasis.��������-��������
CT chest 04/12/2023: Previous opacity/pneumonia in the right lower lobe has resolved. Mild scarring versus atelectasis in the mid to lower lung zones. A perifissural nodule in the left mid to lower lung zone has remained stable. Multiple subtle
groundglass nodular opacities have developed in the left upper lobe measuring up to 8.4 mm.��������-
VSE 01/12/2023: Upper laryngeal penetration. No aspiration.��������-��������
CT chest 01/10/2023:showed no evidence for central pulmonary embolism. Patchy right lower lobe opacification, most likely pneumonia. Prominence of pulmonary interstitium some vague groundglass opacities bilaterally, sparing the Overload. Mild chronic
fiber changes.��������-��������
CT chest01/10/2023: showed no evidence for acute pulmonary embolism.Right lower lobe airspace disease, likely pneumonia, new compared to November 2022. Mild bilateral groundglass opacities.Stable left lower lobe pulmonary nodule.��������-��������
CT chest 2022:Reviewed, showed 8 mm pleural-based pulmonary nodule slightly increased compared to prior examinations.����������������-��������
CT chest 05/08/2022: Solid pleural-based 8 mm left lower lobe pulmonary nodule. Appearance of slight increase in size. However this can be due to the location and the slice image. Moderate right upper lobe and right lower lobe atelectasis versus
scarring. Mild lingular and right middle lobe atelectasis versus scarring. Gallbladder has been removed.
CT sinus 03/14/2024-unremarkable CT of the sinuses
Lower extremity ultrasound 03/22/2024-no evidence for DVT
PFT 08/24/2023-FEV1 2.16-86%, FVC 2.78-84%, TLC 76%, RV 55%, DLCO 72%, DLCO/VA 89%
Subjective Data
-
Date of Service:
Date of Service: July 29, 2024
Chief Complaint: Pulmonary Follow Up and Dyspnea Follow Up
Subjective:
Continues to report shortness of breath
Ongoing coughing without significant phlegm production
Denies hemoptysis
Review of Systems
General: Fever (n)
Cardiopulmonary: Dyspnea, Dyspnea on Exertion and Cough
GI: Abdominal Pain (n) and Nausea (n)
Neuro: Headache (n)
Objective Data
Data Reviewed
Vital Signs / I&O / Oxygen:
Vital Signs
Temp Pulse Resp BP Pulse Ox
98 F 68 16 160/86 94
07/29/24 07:00 07/29/24 08:26 07/29/24 08:26 07/29/24 07:00 07/29/24 08:26
Intake and Output
07/28/24 07/29/24 07/30/24
06:59 06:59 06:59
Intake Total 720 / 720 960 / 960
Balance 720 / 720 960 / 960
SaO2 94
Nasal Cannula flow liters per 1
minute
Physical Exam
General: Respiratory Distress (n) and Comfortable
HEENT: Normocephalic, Anicteric and Moist Mucous Membranes
Cardiovascular: Regular Rhythm
Respiratory: Wheeze (n), Crackles ( basilar), Rhonchi (n), Non-Labored Respirations, Accessory Resp Muscle Use (n) and Stridor (n)
GI: Soft, Non Distended and Non Tender
Neurology: Awake, Alert and No Motor Deficits
Skin: Warm, Dry, Good Color, Cyanosis (n) and Jaundice (n)
Labs/Micro/Reports
Lab Data
07/29/24 10:57
07/29/24 10:57
Microbiology
07/23/24 09:36 Blood/Venous Blood Culture - Final
No Growth - Final Report
07/23/24 09:36 Blood/Venous Blood Culture - Final
No Growth - Final Report
07/27/24 14:31 Sputum Respiratory Culture - Final
07/27/24 14:31 Sputum Gram Stain - Final
[2024-07-29] MEDS: REMERON 45 MG PO (21:39)
[2024-07-29] MEDS: PEPCID 40 MG PO (21:39)
[2024-07-29] MEDS: SENOKOT-S 1 TABLET PO (21:40)
[2024-07-29] MEDS: ARICEPT 10 MG PO (21:40)
[2024-07-29] MEDS: NON-FORMULARY ITEM 1 UNIT TOPICAL (21:40)
[2024-07-29] MEDS: FLEXERIL 10 MG PO (21:40)
[2024-07-29 23:50] VITALS: BP 166/77
[2024-07-29] MEDS: XANAX 0.5 MG PO (23:51)
[2024-07-30] MEDS: SYNTHROID 50 MCG PO (05:22)
[2024-07-30] MEDS: NORCO 7.5/325 1 TABLET PO ×2 (05:24→12:29)
[2024-07-30 06:12] LABS: Hematocrit 31.5 % (37.0-47.0); Hemoglobin 11.2 g/dL (12.0-16.0); Mean Corp Hgb Conc. 35.6 g/dL (33.0-37.0); Mean Corpuscular Hgb 29.9 pg (27.0-31.0); Mean Corpuscular Volume 84.2 fL (81.0-99.0); Mean Platelet Volume 9.4 fL (7.4-10.4); Platelet Count 212 10^3/uL (130-400); Red Blood Cell Count 3.74 10^6/uL (4.20-5.40); Red Cell Dist. Width 13.4 % (11.5-14.5)
[2024-07-30 06:42] LABS: Blood Urea Nitrogen 11 mg/dl (7-17); Calcium 9.2 mg/dl (8.4-10.2); Carbon Dioxide 26 mmol/L (22-30); Chloride 104 mmol/L (98-107); Estimated Creatinine Clearance 84 ml/min; Glucose 88 mg/dl (70-99); Potassium 3.7 mmol/L (3.5-5.1); Sodium 144 mmol/L (135-145); eGFR > 60.00
[2024-07-30 07:00] VITALS: BP 165/98
--- NOTE | 2024-07-30 07:28 | W.PN.HOSP.TC ---
Today's Communication/Plan
-
finish abx
Assessment / Plan
Assessment / Plan
Ms. Avis Leslie is a 69yo F pmh prior CVA, COPD, asthma, HTN, HLD, NIDDM admitted 07/23 for pneumonia.
Sepsis secondary to persistent L-sided pneumonia, possibly aspiration related
- azithromycin, ceftriaxone for 5 days. Today is day 02/19
- mucolytics
- prednisone taper
- pulm, GI, neuro consulted
- azithromycin 250 mg every other day upon discharge for anti-inflammatory properties
- wean O2
- ambulatory pulse ox
Anemia
- stable
- monitor cbc
Asthma, COPD, EVELINA
- cont symbicort, xopenex
- add home spiriva
HTN, HLD
- cont valsartan, statin
DM, overweight
- not on treatment
- monitor
Hx CVA
- cont plavix
Cognitive impairment
-Continue memantine, donepezil
GERD
-Continue sucralfate, Protonix, Pepcid
Hypothyroidism
-Continue levothyroxine
Anxiety/depression/schizoaffective disorder
- Continue alprazolam, mirtazapine
- pt unable to reduce stress in life at this time due to family health issues
Diverticulosis
- senna
History of vertigo
-Continue meclizine as needed
-Continue benztropine
Chronic back/knee pain/arthritis
-Continue lidocaine patch, tizanidine, pregabalin, Vicodin
Chronic b/l lower extremity edema
-Hold Lasix
DVT prophylaxis
- subq heparin
Code status: DNR/DNI
Diet: regular
Anticipated Discharge: Today
Subjective/Interval History
-
Date of Service: July 30, 2024
Ms. Avis Leslie is a 69yo F pmh prior CVA, COPD, asthma, HTN, HLD, NIDDM admitted 07/23 for pneumonia. No acute events overnight. Feels well today.
Objective Data
-
Labs:
Laboratory Results
07/30/24
04:27
WBC 7.0
Hgb 11.2 L
Hct 31.5 L
Plt Count 212
Sodium 144
Potassium 3.7
Chloride 104
Carbon Dioxide 26
BUN 11
Creatinine 0.7
Glucose 88
Calcium 9.2
Vital Signs:
Vital Signs
Temp Pulse Resp BP Pulse Ox
98.2 F 97 14 166/77 93
07/29/24 23:50 07/29/24 23:50 07/29/24 23:50 07/29/24 23:50 07/29/24 23:50
I&O
07/29/24 07/30/24 07/31/24
06:59 06:59 06:59
Intake Total 960 / 960 180 / 180
Output Total 800 / 800
Balance 960 / 960 -620 / -620
Review of Systems
-
History Source: Patient
All other systems: Reviewed and negative
Constitutional: Reports No Symptoms
Respiratory: Reports Cough and Wheezing; Denies Hemoptysis or Trouble Breathing
Cardiac: Reports No Symptoms
Abdomen/GI: Reports No Symptoms
Musculoskeletal: Reports No Symptoms
Skin: Reports No Symptoms
Physical Exam
-
General: Well Developed, Well Nourished and No Apparent Distress
HEENT: Normocephalic, Atraumatic and Moist Mucous Membranes
Respiratory: Wheezes and Non Labored Respirations
Cardiac: Regular Rhythm and S1/S2
GI: Soft, Nontender, Nondistended, Normal Bowel Sounds and No Hepatosplenomegaly
Musculoskeletal: No Clubbing, No Cyanosis and No Edema
Skin: Warm and Dry
Neuro: Awake and AO x 3
Psych: Calm
[2024-07-30] MEDS: SYMBICORT 160/4.5 MCG INHALER 2 PUFF INH (08:12)
--- NOTE | 2024-07-30 09:12 | W.DCSUMMARY ---
Addendum entered and electronically signed by Isai Matias MD 07/30/24 17:35:
Read, reviewed, and agree. See same day progress note for additional details. Time spent coordinating care, DC planning, review of DC plan of care with resident, transition of care, review of records in EMR, med rec, consults, notes, d/w
consultants, nursing, family, and CM mins
Original Note:
Discharge Summary
Discharge Data
Date of Admission: 07/23/24
Date of Discharge: 07/30/24
-
Pending Results: No
Hospital Course
Ms. Avis Leslie is a 69yo F pmh prior CVA, COPD, asthma, HTN, HLD, NIDDM admitted 07/23 for pneumonia. Concerned for aspiration pneumonia as was recently hospitalized last month for suspected aspiration pneumonia and pt felt as if there was
something stuck in her lungs she could not cough up. CXR significant for persistent patchy airspace opacities in the left lung remain concerning for pneumonia. Some improvement compared to chest radiographs from 07/10/2024 and 07/07/2024. Started on
vancomycin and zosyn. Passed speech and swallow eval for a regular diet. Dysarthria evaluated w head CT - no acute intracranial abnormalities. Barium swallow esophagram remarkable for normal fluoroscopic examination of the upper gastrointestinal
tract without evidence for complication of the gastric bypass. Chest CT remarkable for a patchy pneumonia throughout the L lung, worse than before. Vancomycin, zosyn stopped. Started 5-day course of azithromycin and ceftriaxone. No growth on blood
or sputum cultures. Developed an asthma attack one day and was started on duonebs and po prednisone. Pt has returned to baseline and no longer feels there is something stuck in her lungs. Ambulatory pulseox acceptable for discharge. Afebrile,
hemodynamically stable, saturating well on room air.
Discharge Plan
-
Patient Disposition: Home (Routine Discharge)
Discharge Diagnosis/Procedures: Pneumonia
Condition: Good
Diet: Regular
Activity: As tolerated
Driving Restrictions: As prior to admission
Bathing Restrictions: OK to Shower
Instructions: Pneumonia, Adult (DC)
Referrals:
Vincenzo Rodrigez MD [Active] - in one to two months
Jermaine Bueno MD [Active] - (As scheduled 08/14/2024 at 10 AM)
Torrie Arizmendi MD [Family Provider] - in one week
Prescriptions:
New
tiotropium bromide [Spiriva with HandiHaler] 18 mcg capsule, w/inhalation device
1 cap inhalation DAILY Qty: 30 0RF
cefdinir 300 mg capsule
300 mg PO BID 3 Days Qty: 6 0RF
azithromycin 250 mg tablet
See Rx Instructions .ROUTE .COMPLEX Qty: 18 1RF
Rx Instructions:
Take daily for 3 days THEN
Take every other day for mainetnence
prednisone 10 mg Tablet
See Rx Instructions .ROUTE .COMPLEX Qty: 18 0RF
Rx Instructions:
Take By Mouth:
30 mg daily x3 days, 20 mg daily x3 days,
10 mg daily x3 days
Continued
famotidine 40 MG tablet
40 mg PO HS
atorvastatin 80 mg Tablet
80 mg PO DAILY
clopidogrel 75 mg Tablet
75 mg PO DAILY
pantoprazole [Protonix] 40 mg Tablet,Delayed Release (Dr/Ec)
40 mg PO BID
benzonatate 200 mg Capsule
200 mg PO TIDPRN PRN (Reason: cough)
donepezil 10 mg Tablet
10 mg PO HS
sennosides-docusate sodium 8.6-50 mg Tablet
3 tab-cap PO HS Qty: 0
meclizine 12.5 mg Tablet
25 mg PO BIDPRN PRN (Reason: verigo)
levothyroxine 50 mcg Tablet
50 mcg PO DAILY
mirtazapine 45 mg Tablet
45 mg PO HS
valsartan 40 mg Tablet
20 mg PO DAILY
levalbuterol tartrate [Xopenex HFA] 45 mcg/actuation Hfa Aerosol Inhaler
2 inh INHALATION R Q6HPRN PRN (Reason: sob) Qty: 0
ZTlido 1.8 % Adhesive Patch,Medicated
3 patch TOPICAL DAILYPRN PRN (Reason: b/l knee,hip and/or lower back)
Rx Instructions:
UP TO 3 patches a day max on at HS off in am
benztropine 1 mg Tablet
1 mg PO BID@1200,2000
cyclobenzaprine 10 mg Tablet
10 mg PO HS
cyanocobalamin (vitamin B-12) 1,000 mcg Tablet
1,000 mcg PO Q48H
hydrocodone-acetaminophen 10-325 mg Tablet
1 tab PO Q6HPRN PRN (Reason: severe pain)
Patient Comments:
07/13/2023: last filled 07/02/23, 120 tabs for 30 days from [facility]
ergocalciferol (vitamin D2) 1,250 mcg (50,000 unit) Capsule
1,250 mcg PO WE
ondansetron 4 mg Tablet,Disintegrating
4 mg PO BIDPRN PRN (Reason: nausea)
memantine 10 mg tablet
10 mg PO BID
lidocaine-prilocaine 2.5-2.5 % Cream
1 applic TOPICAL Q8HPRN PRN (Reason: breakthrough mild pain )
Rx Instructions:
apply to bilateral knees, bilateral hips and lower back
tizanidine 2 mg tablet
2 mg PO BID
furosemide 40 MG tablet
80 mg PO TUSA
budesonide-formoterol [Symbicort] 160-4.5 mcg/actuation Hfa Aerosol Inhaler
2 inh INHALATION R BID
fluticasone propionate 50 mcg/actuation [place],Suspension
1 spray INTRANASAL BID
cranberry 500 mg Capsule
4,200 mg PO BID
pregabalin [Lyrica] 25 mg Capsule
25 mg PO TIDPRN PRN (Reason: neuropathy)
sucralfate 1 gram tablet
1 g PO BIDPRN PRN (Reason: stomach ulcer)
potassium chloride [Klor-Con M20] 20 mEq Tablet,Er Particles/Crystals
20 meq PO BID
benztropine 2 mg Tablet
1 mg PO BID
calcium-vitamin D3-vitamin K 500 mg-100 unit -40 mcg Tablet,Chewable
1 tab DAILY
furosemide [Lasix] 40 mg Tablet
40 mg PO SUMOWETHFR
alprazolam 0.5 mg tablet
0.5 mg PO QIDPRN PRN (Reason: Mental Health/Anxiety)
Patient Comments:
07/13/2023: last filled 07/13/23, 120 tabs for 30 days from [facility]
Discharge Orders:
Discharge Patient (As Directed); Ordered 07/30/24
Ordered By: Isai Matias
Discharge Date and Time
Discharge Date/Time: 07/30/24 14:08
Print Language: ANGUILLAN
[2024-07-30] MEDS: LIPITOR 80 MG PO (09:17)
[2024-07-30] MEDS: PROTONIX 40 MG PO (09:17)
[2024-07-30] MEDS: ZITHROMAX 250 MG PO (09:17)
[2024-07-30] MEDS: DELTASONE 40 MG PO (09:18)
[2024-07-30] MEDS: NAMENDA 10 MG PO (09:18)
[2024-07-30] MEDS: PLAVIX 75 MG PO (09:18)
[2024-07-30] MEDS: ZANAFLEX 2 MG PO (09:18)
[2024-07-30] MEDS: DIOVAN 20 MG PO (09:18)
[2024-07-30] MEDS: MUCINEX 1200 MG PO (09:19)
[2024-07-30] MEDS: VITAMIN B-12 1000 MCG PO (09:20)
[2024-07-30] MEDS: HEPARIN 5000 UNITS SC (09:20)
[2024-07-30] MEDS: ROCEPHIN 1000 MG IV (09:21)
[2024-07-30] MEDS: STERILE WATER FOR INJECTION 10 ML IV (09:22)
[2024-07-30] MEDS: XANAX 0.5 MG PO (09:34)
[2024-07-30] MEDS: COGENTIN 1 MG PO (12:25)
[2024-07-30 12:40] VITALS: BP 157/90
== END 2024-07-30 14:08 | disposition home or self-care (01) | DRG 871 ==
LOC: 3 WEST ACU 12:51
PROVIDERS: Nurse Practitioner Family; Physician Assistant Medical; ADMITTING PHYSICIAN Hospitalist; ATTENDING PHYSICIAN Hospitalist; CONSULT PHYSICIAN Internal Medicine; CONSULT PHYSICIAN Psychiatry & Neurology Neurology; EMERGENCY PHYSICIAN Student in an Organized Health Care Education/Training Program; FAMILY PHYSICIAN Student in an Organized Health Care Education/Training Program; OTHER PHYSICIAN Internal Medicine Critical Care Medicine
DX: A41.9 Sepsis, unspecified organism (principal); J18.9 Pneumonia, unspecified organism; J69.0 Pneumonitis due to inhalation of food and vomit; J96.01 Acute respiratory failure with hypoxia; F03.93 Unspecified dementia, unspecified severity, with mood disturbance; F03.94 Unspecified dementia, unspecified severity, with anxiety; J44.0 Chronic obstructive pulmonary disease with (acute) lower respiratory infection; E87.1 Hypo-osmolality and hyponatremia; J45.901 Unspecified asthma with (acute) exacerbation; Z66 Do not resuscitate; I10 Essential (primary) hypertension; E78.00 Pure hypercholesterolemia, unspecified; E03.9 Hypothyroidism, unspecified; D50.9 Iron deficiency anemia, unspecified; F25.9 Schizoaffective disorder, unspecified; F32.9 Major depressive disorder, single episode, unspecified; J44.89 Other specified chronic obstructive pulmonary disease; K21.9 Gastro-esophageal reflux disease without esophagitis; K59.00 Constipation, unspecified; G89.29 Other chronic pain; M45.9 Ankylosing spondylitis of unspecified sites in spine; E11.65 Type 2 diabetes mellitus with hyperglycemia; R13.19 Other dysphagia; I89.0 Lymphedema, not elsewhere classified; M79.7 Fibromyalgia; M81.0 Age-related osteoporosis without current pathological fracture; E66.9 Obesity, unspecified; Z68.29 Body mass index [BMI] 29.0-29.9, adult; Z20.822 Contact with and (suspected) exposure to COVID-19; Z79.891 Long term (current) use of opiate analgesic; Z79.02 Long term (current) use of antithrombotics/antiplatelets; Z79.890 Hormone replacement therapy; Z79.51 Long term (current) use of inhaled steroids; Z79.899 Other long term (current) drug therapy; Z86.73 Personal history of transient ischemic attack (TIA), and cerebral infarction without residual deficits; Z87.01 Personal history of pneumonia (recurrent); Z96.651 Presence of right artificial knee joint; Z98.84 Bariatric surgery status
CPT/HCPCS: 70450; 71046; 71250; 74246; 80048; 80053; 80202; 82607; 82784; 82785; 82787; 83605; 83880; 84145; 84425; 85025; 85027; 87040; 87070; 87205; 87502; 87641; 87811; 92610; 93005; 94640; 94669; 96374; 96375; 97162; 97530; 99285

== ENCOUNTER 2024-08-28 22:22 | Inpatient (IN) | payer OTHER, SELFPAY ==
[2024-08-28] VITALS (8 sets, daily range): BP systolic 93–126; BP diastolic 42–106; BMI 30.1; BMI 29.2
[2024-08-28 18:14] LABS: % Basophils 0.3 % (0-2); % Eosinophils 0.3 % (0-6); % Immature Granulocytes 0.4 % (0-0.5); % Lymphocytes 7.3 % (20.5-51.1); % Monocytes 3.4 % (1.7-9.3); % Neutrophils 88.3 % (42.2-75.2); Absolute Immature Granulocytes 0.1 10^3/uL (0-0.05); Absolute Monocytes 0.4 10^3/uL (0.1-0.6); Absolute Neutrophils 11.4 10^3/uL (1.4-6.5); Hematocrit 30.2 % (37.0-47.0); Hemoglobin 10.4 g/dL (12.0-16.0); Mean Corp Hgb Conc. 34.4 g/dL (33.0-37.0); Mean Corpuscular Hgb 29.7 pg (27.0-31.0); Mean Corpuscular Volume 86.3 fL (81.0-99.0); Mean Platelet Volume 9.1 fL (7.4-10.4); Nucleated Red Blood Cells % 0 %; Platelet Count 177 10^3/uL (130-400); Red Cell Dist. Width 14.5 % (11.5-14.5); White Blood Cell Count 12.9 10^3/uL (4.8-10.8)
[2024-08-28 18:24] LABS: ALT (SGPT) 30 U/L (0-35); AST (SGOT) 32 U/L (14-36); Albumin 2.9 g/dl (3.5-5.0); Alkaline Phosphatase 88 U/L (38-126); Blood Urea Nitrogen 11 mg/dl (7-17); Calcium 8.3 mg/dl (8.4-10.2); Carbon Dioxide 24 mmol/L (22-30); Chloride 100 mmol/L (98-107); Glucose 137 mg/dl (70-99); Potassium 3.2 mmol/L (3.5-5.1); Sodium 135 mmol/L (135-145); Total Protein 5.3 g/dl (6.3-8.2); eGFR > 60.00
[2024-08-28 18:26] LABS: COVID-19 Antigen Negative (Negative)
[2024-08-28 18:36] LABS: Troponin I < 0.012 ng/ml
--- NOTE | 2024-08-28 19:02 | ED.GENMED ---
History of Present Illness
General
Chief Complaint: Chest Pain
Source: patient
Exam Limitations: none
Time Seen by Provider: 08/28/24 18:59
Nursing documentation reviewed up to this point in time: agreed with
History of Present Illness
History of Present Illness:
Patient is a 69-year-old female with history of hypertension hyperlipidemia stroke, COPD [id number] diabetes, schizoaffective disorder cognitive impairment, pneumonia presents to the ED c/o of right chest pain.
Patient started with this pain yesterday. She reports is in her right chest rib area and has been persistent throughout last night and into today. She does have a cough. She does report that her pulse ox was around 88% on room air. She does have
COPD but denies oxygen use. She was recently admitted for pneumonia 07/23 to 07/30 . she was discharged at that time on cefdinir Zithromax and prednisone she also has a inhaler Spiriva.
Past History
Past History
ED Past Medical History: Asthma, CVA, HTN, Hypercholesterolemia, NIDDM, [place] and Psychiatric
ED Past Surgical History: Cholecystectomy, Gynecological (Hysterectomy), Orthopedic (right knee replacement) and Other (Gastric bypass)
Social History
Tobacco: Non-smoker
Alcohol: None
Drug: None
Personal:
Living: alone
Employment: Disabled
Family History
Family History: Asthma
Review of Systems
Review of Systems
Allergies reviewed?: Yes
All Other Systems: ROS reviewed and negative except as documented in HPI and ROS
Constitutional: Reports no symptoms; Denies fever, fatigue or chills
Respiratory: Reports other (pain in right rib region )
Cardiac: Reports no symptoms
ABD/GI: Reports no symptoms
: Reports no symptoms
Musculoskeletal: Reports no symptoms
Skin: Reports no symptoms
Neurological: Reports no symptoms
Psychiatric: Reports no symptoms
Phy Exam
General Physical Exam
General Presentation: no apparent distress
General age: appears stated age
General Skin: warm and dry
General Habitus: normal
General Mental: alert
General Hydration: appears well hydrated
Cardiovascular Exam
Cardiovascular Exam: regular rate/rhythm, no murmur and normal peripheral pulses
Pulmonary Exam
Pulmonary Exam: other (crackle left base )
Neurological Exam
Neurological Exam: alert and oriented x3
Musculoskeletal Exam
Musculoskeletal Exam: full ROM
Skin Exam
Skin Exam: normal color and warm/dry
Psychiatric Exam
Psychiatric Exam: normal mood/affect
Scores
Heart Score for Chest Pain Patients
STEMI patient?: Not applicable
Course
Orders/Labs/Results
Orders:
Orders
08/28/24 Dinner
Regular
At Your Request: Limited Participation
Does patient need a safe tray?: No
08/28/24 17:50
Electrocardiogram (*1) Urgent
Reason for Study: Chest Pain
EKG- Treatment ONCE
08/28/24 17:58
CXR2 [CR Chest - 2 Views ] Urgent
Comment: pain worse with movement
Reason For Exam: right sided chest pain with cough
08/28/24 18:03
COVID-19 Antigen Urgent
Source: Nasal Swab
Complete Blood Count/With Diff Urgent
Influenza A+B Rapid Molecular Urgent
ELINOR Source: Nasal Swab
Specimen Description:
08/28/24 18:04
Comprehensive Metabolic Panel Urgent
Troponin I Urgent
08/28/24 19:23
CT Chest Pe Study Urgent
Comment:
Reason For Exam: right lateral rib pain
08/28/24 21:12
Vancomycin [Vancocin] 2,000 mg 0.9% Sodium Chloride 500 ml [Nss] 500 ml IV NOW
08/28/24 21:13
Piperacillin/Tazo 3.375 Gram [Zosyn] 3.375 gram in 50 ml IV NOW
08/28/24 21:24
Lactic Acid Q4H
Comment: CANCEL 2nd LACTIC ACID IF 1st LACTIC ACID IS LESS THAN 2
Blood Culture Q30M
ELINOR Source: Blood/Venous
Specimen Description:
Blood Culture Q30M
ELINOR Source: Blood/Venous
Specimen Description:
08/28/24 21:49
Potassium Chloride [KCl] 40 meq PO NOW STA
08/28/24 21:51
Admit/Transfer Patient As Directed
Co-Sign Provider:
Level of Care: Inpatient admission
Assign to:: Telemetry
Physician / Group: terri maciel
Diagnosis: sepsis hypotension 2/2 EMELINA/LLL pna, hypokalemia
Reason for Telemetry: Arrhythmia
Date to Stop Telemetry: 08/31/24
Time to Stop Telemetry: 11:00
Reason for Hospitalization: sepsis hypotension 2/2 EMELINA/LLL pna, hypokalemia
Expected length of stay greater than two midnights?: Yes
ELOS- Estimated Length of Stay in days: 5
I certify the patient meets the requirements for IP care: Yes
Code Status As Directed
Resuscitation Status: Do not resuscitate
Based on pt advanced directive or healthcare POA form: Yes
Decision communicated with: per chart
08/28/24 21:52
DNR Bracelet Application ONCE
08/28/24 21:57
PRN Pain Medication Management As Directed
May give lesser potent ordered pain med per pt: Yes
preference::
Protocol:: Medication orders for pain may be administered in a
manner that supports deferring to patient preference
when the pt is:
- Requesting an ordered lesser potent pain medication.
Least to most potent pain medications are defined
as: acetaminophen < NSAID < tramadol < opioids
(morphine, oxycodone, hydromorphone).
- Requesting a lesser dose of the same medication IF
ORDERED.
- Requesting a less intrusive route of administration
if both routes are prescribed by the provider (PO <
IV).
08/28/24 22:00
Lactated Ringers [Lr] 1,000 ml IV 500 mls/hr
08/28/24 22:22
Hydrocodone 7.5/APAP 325 [[place] 7.5/325] 1 tablet PO NOW STA
08/28/24 22:58
Acetaminophen [Tylenol] 650 mg PO Q6HPRN PRN
Alprazolam [Xanax] 0.5 mg PO QIDPRN PRN
Cyclobenzaprine HCl [Flexeril] 10 mg PO HS
Dextrose 50%-Water [Dextrose 50% Syringe] 12.5 grams IV [id number] PRN
Docusate W/Senna [Senokot-S] 3 tablet PO HS
Donepezil HCl [Aricept] 10 mg PO HS
Famotidine [Pepcid] 40 mg PO HS
Glucagon [GlucaGen] 1 mg IM PRN PRN
Levalbuterol Tartrate [Xopenex Hfa 45 Mcg Inhaler] 2 puff INH R Q6HPRN PRN
Lidocaine 2.5%/Prilocaine 2.5% [Emla Cream] See Dose Instructions TOPICAL Q8HPRN PRN
Meclizine [Antivert] 25 mg PO TID
Ondansetron Orally Disint [Zofran Odt (Orally Disintegrating)] 4 mg PO BIDPRN PRN
Pregabalin [Lyrica] 25 mg PO TIDPRN PRN
Sucralfate [Carafate] 1 gram PO BIDPRN PRN
VANCOMYCIN Pharmacy to Dose [VANCOCIN Pharmacy to Dose] 1 each Pharmacy To Prepare [Call Pharmacy To Prepare] 0 ml IV PER PROTOCOL
08/28/24 22:58
Activity As Directed
Activity Level: With Assistance
Bedside Glucose Monitoring As Directed
Frequency: AC&HS
Additional Instructions:: Change to q6h if pt on TPN, tube feeding or not eating
Intake/ Output As Directed
Frequency: Per unit guidelines
Vital Signs As Directed
Frequency: Per unit guidelines
Weight As Directed
Frequency: Daily
Xopenex Reason for Use As Directed
Reason for ordering Xopenex instead of Albuterol: arrythmias
Incentive Spirometry [Rx Incentive Spirometry] [RESP] Routine
Frequency: q1h while awake
O2 Therapy [RESP] Routine
Nasal Cannula Liter Flow: 2 LPM
Titrate/Wean O2 to maintain O2 sat greater than (%): 92
Pulse Ox/spot Check [RESP] Routine
Quantity: 1
Vest Therapy [Rx Vest] [RESP] Routine
Quantity: 1
Ot Eval And Treat Routine
Pt Eval And Treat Routine
Activity Level: As Tolerated
DX Deep Vein Thrombosis Video Routine
08/28/24 23:00
Mirtazapine [Remeron] 45 mg PO HS
08/28/24 23:03
Benzonatate [Tessalon Perles] 200 mg PO TIDPRN PRN
08/28/24 23:48
Hydrocodone 7.5/APAP 325 [[place] 7.5/325] 1 tablet PO Q6HPRN PRN
08/29/24 06:00
Levothyroxine [Synthroid] 50 mcg PO DAILY @ 0600
08/29/24 07:30
Insulin Aspart Corrective Low [Novolog Flexpen-Low Resistance] See Protocol SC AC
08/29/24 07:59
Complete Blood Count/With Diff IN AM
Comprehensive Metabolic Panel IN AM
Glycohemoglobin (HgbA1c) IN AM
08/29/24 08:00
Atorvastatin [Lipitor] 80 mg PO DAILY
Benztropine [Cogentin] 2 mg PO DAILY
Budesonide/Formoterol 160/4.5 [Symbicort 160/4.5 Mcg Inhaler] 2 puff INH R BID
Calcium Carbonate/Vitamin D3 [Oscal 500 + D] 500 mg PO DAILY
Clopidogrel Bisulfate [Plavix] 75 mg PO DAILY
Cyanocobalamin [Vitamin B-12] 1,000 mcg PO Q48H
Memantine HCl [Namenda] 10 mg PO BID
Pantoprazole [Protonix] 40 mg PO BID
Tiotropium [place] 2.5 Mcg [Spiriva Respimat 2.5 Mcg] 2 puff INH R DAILY
Tizanidine [Zanaflex] 2 mg PO BID
fluticasone propionate 1 spray NASAL BID
08/29/24 12:00
Benztropine [Cogentin] 1 mg PO BID@1200,2000
08/29/24 18:00
Enoxaparin Sodium [Lovenox] 40 mg SC QPM
08/30/24 07:15
Complete Blood Count/With Diff IN AM
Comprehensive Metabolic Panel IN AM
08/30/24 08:00
Azithromycin [Zithromax] 250 mg PO MoWeFr@0800
Ergocalciferol [Drisdol (Vitamin D2)] 50,000 units PO WE
08/31/24 06:00
Complete Blood Count/With Diff IN AM
Comprehensive Metabolic Panel IN AM
08/31/24 11:00
DC Protocol for Telemetry ONCE
09/01/24 06:00
Complete Blood Count/With Diff IN AM
Comprehensive Metabolic Panel IN AM
Abnormal Lab Results
08/28/24 08/28/24
18:03 18:04
WBC 12.9 H 10^3/uL
(4.8-10.8)
RBC 3.50 L 10^6/uL
(4.20-5.40)
Hgb 10.4 L g/dL
(12.0-16.0)
Hct 30.2 L %
(37.0-47.0)
Abs Immat Gran (auto) 0.1 H 10^3/uL
(0-0.05)
Absolute Neuts (auto) 11.4 H 10^3/uL
(1.4-6.5)
Absolute Lymphs (auto) 1.0 L 10^3/uL
(1.2-3.4)
Neutrophils % 88.3 H %
(42.2-75.2)
Lymphocytes % 7.3 L %
(20.5-51.1)
Potassium 3.2 L mmol/L
(3.5-5.1)
Glucose 137 H mg/dl
(70-99)
Calcium 8.3 L mg/dl
(8.4-10.2)
Total Protein 5.3 L g/dl
(6.3-8.2)
Albumin 2.9 L g/dl
(3.5-5.0)
08/28/24 18:03
08/28/24 18:04
Vital Signs
Initial and Last Documented VS:
Initial Vital Signs
Temp Pulse Resp BP Pulse Ox
100.0 F 85 18 104/58 95
08/28/24 17:54 08/28/24 17:54 08/28/24 17:54 08/28/24 17:54 08/28/24 17:54
Last Documented Vital Signs
Temp Pulse Resp BP Pulse Ox
98.7 F 71 20 111/53 96
08/30/24 08:17 08/30/24 08:17 08/30/24 08:17 08/30/24 08:17 08/30/24 09:21
MDM/Problems Addressed
MDM/Problems Addressed:
Patient is a 69-year-old female who presents back to the ER with right sided chest pain with low pulse ox. Patient was not aware but was found to be febrile here in the ER. Patient is mildly hypoxic here white count minimally elevated x-ray shows
mild to large amount of opacity in the left upper and left lower lobes which is most consistent with severe pneumonia worsening from previous pneumonia in July
Patient that time was discharged on Rocephin and Zithromax and Zithromax was a maintenance dose. Ordered broad-spectrum vancomycin and Zosyn and plan to admit to the hospital for pneumonia and hypoxia.
Patient was placed on 2 L.
*Critical Care Note
Total Time (30-74mins, 75-104mins- exclusive of procedures): Not Applicable
ED Attending Note
-
Portions of this chart may have been created with voice recognition software.� Occasional wrong word or��sound alike� substitutions may have occurred due to the inherent limitations of voice recognition software.
Discharge Plan
Departure
Patient Disposition: Admit
Date of Disposition: 08/28/24
Time of Disposition: 21:10
Presentation/result/management discussed w/ accepting MD/DO: Hospitalist
Patient with high blood pressure during this ER visit?: No
Condition: Fair
Covid-19: Not Applicable
Discharge Problem:
Pneumonia, hypoxia
Interventions
Interventions:
*Risk Screen - Suicide Last Done: 08/28/24 17:54
*General Assessment Last Done: 08/28/24 22:54
*Neglect/Abuse Screening Last Done: 08/28/24 17:54
ED- Fall Risk Assessment Last Done: 08/28/24 18:58
*ED COVID-19 Vaccine History Last Done: 08/28/24 22:54
*Nursing Disposition Last Done: 08/28/24 22:54
ED- Cardiac Assessment Last Done: 08/28/24 18:58
Discharge Date and Time
Discharge Date/Time: 08/28/24 22:54
[2024-08-28] MEDS: ZOSYN 50 IV (21:21)
--- NOTE | 2024-08-28 21:31 | HPS.HSE ---
Family Physician
-
Family Physician: Torrie Arizmendi MD
Chief Complaint
-
Cough right sided rib pain hypoxia at home
History of Present Illness
69-year-old female reporting right-sided chest pain that started yesterday in the rib area has been persistent throughout last night into today with a cough. She does report her pulse ox was 88% on room air at home. She has history of COPD but is
not on oxygen therapy. In the ER she had a low-grade temp 100 F with leukocytosis and CT PE study showing severe Left upper and Left lower lobe PNA. She was recently admitted for pneumonia left lower lobe 07/23-07/30 was treated as inpatient
antibiotics discharged on cefdinir, chronic Zithromax Wednesday and a prednisone taper along with Spiriva inhaler. She denies headache, fever, chills, palpitations, shortness of breath, abdominal pain, nausea, vomiting, diarrhea.
She has past medical history of chronic COPD, asthma,Recurrent pneumonia, essential HTN, EVELINA resolved with weight loss/gastric bypass, normocytic anemia, HLD, DM2 not on current treatment, CVA, cognitive impairment, GERD, gastric bypass history,
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
history of ankylosing spondylosis, osteoporosis, fibromyalgia, RA treated from [id number] referred to pain management for chronic pain for which she takes Vicodin applies topical lidocaine prilocaine and CT Lidoderm patches.
Medical History
Past Medical History
Past Medical History: Reports Psychiatric ( asthma,, suspected aspiration, obstructive sleep apnea, hypertension, hyperlipidemia, diabetes, CVA, cognitive impairment, GERD, hypothyroidism, anxiety/depression/schizoaffective disorder, diverticulosis,
vertigo) and Other
Additional Past Medical History:
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
Lidoderm patches.
Past Surgical History: Reports None
Social History
Tobacco: Non-smoker
Alcohol: None
Drug: None
Personal: Single
Living: With Family
Family History
Family History: Not pertinent
Allergies / Home Medications
Allergies reflects when Allergies were last updated in [employer].
Home Medications with original date entered in [employer]
Allergy/Medication List:
Allergies
Allergy/AdvReac Type Severity Reaction Status Date / Time
celecoxib [From Celebrex] Allergy Unknown Verified 08/28/24 17:57
hydrochlorothiazide Allergy Unknown Verified 08/28/24 17:57
NSAIDS (Non-Steroidal Allergy Gastric Verified 08/28/24 17:57
Anti-Inflamma Bypass
pregabalin [From Lyrica] Allergy Unknown Verified 08/28/24 17:57
promethazine Allergy Unknown Verified 08/28/24 17:57
zolpidem [From Ambien] Allergy Unknown Verified 08/28/24 17:57
Home Medications
famotidine 40 mg tablet 40 mg PO HS Gastrointestinal Issue 05/19/15
atorvastatin 80 mg tablet 80 mg PO DAILY High Cholesterol 01/10/23
benzonatate 200 mg capsule 200 mg PO TIDPRN PRN cough 01/10/23
clopidogrel 75 mg tablet 75 mg PO DAILY Blood Clot Prevention/Tx 01/10/23
donepezil 10 mg tablet 10 mg PO HS Mental Health/Anxiety 01/10/23
levalbuterol tartrate 45 mcg/actuation aerosol inhaler (Xopenex HFA) 2 inh inhalation R Q6HPRN PRN sob ##0 01/10/23
levothyroxine 50 mcg tablet 50 mcg PO DAILY Thyroid 01/10/23
lidocaine 1.8 % topical patch (ZTlido) 3 patch topical DAILYPRN PRN b/l knee,hip and/or lower back 01/10/23
mirtazapine 45 mg tablet 45 mg PO HS Mental Health/Anxiety 01/10/23
pantoprazole 40 mg tablet,delayed release (Protonix) 40 mg PO BID Gastrointestinal Issue 01/10/23
sennosides 8.6 mg-docusate sodium 50 mg tablet 3 tab-cap PO HS Constipation ##0 01/10/23
valsartan 40 mg tablet 20 mg PO DAILY Blood Pressure 01/10/23
benztropine 1 mg tablet 1 mg PO BID@1200,2000 extrapyrimadal symptoms 01/12/23
cyanocobalamin (vitamin B-12) 1,000 mcg tablet 1,000 mcg PO Q48H Supplement 05/14/23
cyclobenzaprine 10 mg tablet 10 mg PO HS Muscle Spasms 05/14/23
ergocalciferol (vitamin D2) 1,250 mcg (50,000 unit) capsule 1,250 mcg PO WE Supplement 05/14/23
hydrocodone 10 mg-acetaminophen 325 mg tablet 1 tab PO Q6HPRN PRN severe pain 05/14/23
lidocaine-prilocaine 2.5 %-2.5 % topical cream 1 applic topical Q8HPRN PRN breakthrough mild pain 05/14/23
memantine 10 mg tablet 10 mg PO BID Neurological Condition 05/14/23
ondansetron 4 mg disintegrating tablet 4 mg PO BIDPRN PRN nausea 05/14/23
furosemide 40 mg tablet 80 mg PO TUSA Fluid Retention/Swelling 07/13/23
tizanidine 2 mg tablet 2 mg PO BID Muscle Spasms 07/13/23
budesonide-formoterol HFA 160 mcg-4.5 mcg/actuation aerosol inhaler (Symbicort) 2 inh inhalation R BID Lung/Breathing Issues 10/08/23
cranberry 500 mg capsule 4,200 mg PO BID Supplement 03/22/24
fluticasone propionate 50 mcg/actuation nasal spray,suspension 1 spray intranasal BID Congestion 03/22/24
pregabalin 25 mg capsule (Lyrica) 25 mg PO TIDPRN PRN neuropathy 03/22/24
sucralfate 1 gram tablet 1 g PO BIDPRN PRN stomach ulcer 03/22/24
benztropine 2 mg tablet 2 mg PO DAILY EPS 07/07/24
calcium 500 mg-vitamin D3 100 unit-vitamin K 40 mcg chewable tablet 1 tab PO DAILY Supplement 07/07/24
potassium chloride 20 mEq tablet,extended release(part/cryst) (Klor-Con M) 20 meq PO BID Electrolyte Repletion 07/07/24
alprazolam 0.5 mg tablet 0.5 mg PO QIDPRN PRN Mental Health/Anxiety 07/23/24
furosemide 40 mg tablet (Lasix) 40 mg PO SUMOWETHFR Fluid Retention/Swelling 07/23/24
azithromycin 250 mg tablet 250 mg PO Q48H 08/28/24
meclizine 25 mg tablet 25 mg PO TID 08/28/24
tiotropium bromide 18 mcg capsule with inhalation device (Spiriva with HandiHaler) 1 cap inhalation R DAILY 08/28/24
Review of Systems
-
History Source: Patient
A 12 point ROS was completed and negative except as noted: Yes
Constitutional: Reports Fever; Denies Chills
EENT: Denies Sore Throat or Runny Nose
Respiratory: Reports Cough, Trouble Breathing (Hypoxia at home 88%) and Other (Right sided rib pain)
Cardiac: Denies Chest Pain, Diaphoresis, Palpitations or Syncope
Abdomen/GI: Denies Abdominal Pain, Nausea, Vomiting, Diarrhea, Constipated, Bloody Stools or Black Stools
: Denies Dysuria, Frequency, Flank Pain, Incontinence or Difficulty Voiding
Musculoskeletal: Reports Edema (Chronic bilateral legs currently has Velcro edema compression stockings from feet to knees in place); Denies Joint Pain
Skin: Denies Itching or Rash
Neurological: Denies Dizzy, Headache or Weakness
Endocrine: Reports No Symptoms
Hematologic/Lymphatic: Reports No Symptoms
Psych: Reports Calm
Physical Exam
Vital Signs
Vital Signs
Temp Pulse Resp BP Pulse Ox
100.0 F 78 20 95/46 94
08/28/24 17:54 08/28/24 18:53 08/28/24 18:53 08/28/24 18:53 08/28/24 18:53
Physical Exam
General: Comfortable, Conversant, Pain (Chronic) and Fever; No Chills
HEENT: NormoCephalic, Moist mucous membranes, PERRLA, Luke Conjunctivae, No Ptosis and Other (No teeth in mouth)
Respiratory: Rales (With rhonchi left lower left middle lobe)
Cardiac: S1/S2, Regular Rhythm and Peripheral Edema ( currently has Velcro edema compression stockings from feet to knees in place); No Murmur, Rub or Gallop
Breast: Deferred by me
GI: Soft, Non Tender, Non Distended, Normal Bowel Sounds and No Hepatosplenomegaly
Rectal: Deferred by Provider
Genito-urinary: Deferred by me
Musculoskeletal: No Clubbing, No Cyanosis, Edema, Left Lower Extremity ( currently has Velcro edema compression stockings from feet to knees in place) and Edema, Right Lower Extremity ( currently has Velcro edema compression stockings from feet to
knees in place); No Edema, Left Upper Extremity or Edema, Right Upper Extremity
Skin: Warm and Dry; No Rash
Neuro: AO x 3, No Motor Deficits, Nonfocal/grossly intact, Cranial Nerves Intact and No Sensory Deficits; No Slurred Speech, Facial Droop, Tremors or Sedated
Psych: Calm
Laboratory Results
-
08/28/24 18:03
08/28/24 18:04
Laboratory Results
Total Bilirubin 1.0 mg/dl (0.2-1.3) 08/28/24 18:04
AST 32 U/L (14-36) 08/28/24 18:04
ALT 30 U/L (0-35) 08/28/24 18:04
Alkaline Phosphatase 88 U/L (38-126) 08/28/24 18:04
Troponin I < 0.012 ng/ml 08/28/24 18:04
Impression/Plan
-
Impression/plan:
Admit to telemetry
#Sepsis with hypotension 2/2 left upper and left lower lobe PNA
#Hx recurrent pneumonias March 2024, June 2024 both right lower lobe, July 2024 left lower lobe
#Recent left lung 07/23 - 07/30/2024-treated with azithromycin/Rocephin, steroid taper until 08/08/2024
WBC 12.9 with left shift, temp 100 F, BP 95/46
94% RA
Patient on maintenance Azithromycin 250 mg Wednesday started on DC 08/08/2024
-Aspiration risk�repeatedly negative workups in the past by Pulmonary
-Negative MRSA screen nasal 07/23/2024
-Blood culture x 1
-IV LR 500 cc an hour total 2 L sepsis bolus
-No further IV vancomycin due to negative MRSA nasal screen on 07/23/2024
-Continue IV Zosyn and continue azithromycin to 50 mg Wednesday
-Tylenol as needed fever
-Incentive spirometry
-Vest therapy
CT PE study:
1. SEVERE AIRSPACE CONSOLIDATION in the left upper and lower lobes which appears increased, but in a slightly different distribution than on 07/25/2024 most consistent with SEVERE LEFT UPPER and
LOWER LOBE PNEUMONIA. A severe inflammatory pneumonitis or lung cancer are considered less likely.
2. Mild to moderate left hilar and left-sided mediastinal lymphadenopathy.
3. Mild scarring in the left lung.
4. Moderate chronic elevation of the anterior right hemidiaphragm.
5. Moderate calcific atherosclerotic plaque in the left coronary artery
#Acute hypotension due to sepsis/essential HTN
BP 95/46
-IV LR 2 L, then LR 80cc/hr
-Hold Lasix, valsartan 20 mg daily
#Acute hypokalemia
K3.2
-Will give KCl 40 mEq follow BMP
#Chronic COPD�no acute exacerbation
#Chronic asthma-�no acute exacerbation
-Continue Symbicort, Xopenex, Spiriva
-Follows with pulmonary
#EVELINA�resolved with weight loss
#Anemia normocytic
- stable at 10.4 Near baseline
- monitor cbc
#HLD
- cont atorvastatin 80 mg daily
#DM 2
- not on current treatment treatment HgbA1c 5.7 on 03/22/2024, will repeat
-Accu-Cheks with SSI
#Hx CVA
- cont plavix, Lipitor 80 mg daily
2D echo 12/01/2021: EF 55 to 60% normal LVSF, LVS, normal diastolic function no wall abnormalities no valvular dysfunction
-Follows with [facility]
#Cognitive impairment ? pseudodmentia
Patient oriented x 3 including past medical history all the way back to 1998
-Continue memantine, donepezil
#GERD
#Gastric bypass Hx
-Continue sucralfate, Protonix, Pepcid
-Barium swallow/upper GI series completed without evidence of dysmotility and without evidence for complications of the gastric bypass
-Diet regular
#Hypothyroidism
-Continue levothyroxine
#Anxiety/Depression/Schizoaffective disorder
- Continue alprazolam, mirtazapine
#Diverticulosis
-Continue senna
#History of vertigo
-Continue meclizine as needed
-Continue benztropine
History of chronic pain with HLA-B 27 gene factor/patient states history of ankylosing spondylosis, osteoporosis, fibromyalgia, RA
#Chronic back/knee pain/arthritis
-Patient was treated by rheumatology then referred to pain management the last 8 years
-Patient follows with [facility] pain management Dr. Heath in [place]
-Continue Z2 lidocaine patch 5%( May use own from [facility]), tizanidine, pregabalin, Vicodin 10mg/325mg every 6 hours scheduled
Lidocaine 2.5%/try looking 2.5% 30 g patient applies to posterior knees, hips, lower back and toes alternating 3 times daily as needed(may use own cream)
#Chronic b/l lower extremity edema
# currently has Velcro edema compression stockings from feet to knees in place
-Hold Lasix
#Obesity/Hx bariatric surgery�BMI 30
recommend weight loss
DVT prophylaxis
- subq heparin
DNR/DNI
[2024-08-28 21:44] LABS: Lactic Acid 1.8 mmol/L (0.7-2.0)
[2024-08-28] MEDS: VANCOCIN 540 MG IV (21:44)
--- NOTE | 2024-08-28 22:12 | W.PN.UPDATE ---
Update Note
Progress Note Update
This note serves as an addendum to the H&P by checkroom chief AP: Karyna FUENTES
HPI
69-year-old with a history of asthma followed by Dr. Szymanski, suspected silent aspiration, obstructive sleep apnea, hypertension, hyperlipidemia, diabetes, CVA, cognitive impairment as well as anxiety/depression/schizoaffective disorder
Addendum PHX
Obesity/bariatric surgery.
EVELINA resolved with weight loss.
GERD.
Vertigo.
Diverticulosis.
Cholecystectomy.
Right knee repair.
Tonsillectomy.
Carpal tunnel 2020 11/2022.
Reviewed VS: T 100.0 HR 78 Hypotensive 95/45 RR 20 POx 94 on RA
PE: Class I obesity
Gen: Not toxic , NAD , wearing 2 L NCO2
HEENT: anicteric
Neck: supple
Lungs: Symmetric AE, rales at LLL base
Cor: RRR S1 S2
Abdomen: benign exam
COMMUNITY RECREATION COORDINATOR: AAO3 , NFND
MS: B/l LE edema under compression wrap
Psych: approraite mood and affect
Data
08/28/24 08/28/24
18:03 18:04
WBC 12.9 H
Hgb 10.4 L
Potassium 3.2 L
Creatinine 0.6
eGFR > 60.00
Troponin I < 0.012
LA pending
NEG Flu A & B
NEG Covid
BCx sent
CXR
1. Moderate to large amount of asymmetric opacity in the left upper and lower lobes which is most consistent with SEVERE PNEUMONIA which appears to have increased since 07/23/2024.
2. Moderate elevation of the right hemidiaphragm.
CTC PE study
1. SEVERE AIRSPACE CONSOLIDATION in the left upper and lower lobes which appears increased, but in a slightly different distribution than on 07/25/2024 most consistent with SEVERE LEFT UPPER and LOWER LOBE PNEUMONIA. A severe inflammatory
pneumonitis or lung cancer are considered less likely.
2. Mild to moderate left hilar and left-sided mediastinal lymphadenopathy.
3. Mild scarring in the left lung.
4. Moderate chronic elevation of the anterior right hemidiaphragm.
5. Moderate calcific atherosclerotic plaque in the left coronary artery.
EKG
NORMAL SINUS RHYTHM
CANNOT RULE OUT ANTERIOR INFARCT , AGE UNDETERMINED
ABNORMAL ECG
WHEN COMPARED WITH ECG OF 27-JUL-2024 10:58,
NO SIGNIFICANT CHANGE WAS FOUND
12/11/21 ECHO
LVEF 55-60
Nl diastolic function
ASSESSMENT & PLAN
Sepsis due to PNA @ EMELINA and LLL
Associated hypotension s/p NS 500 bolus at ER
Associated mild to moderate left hilar and left-sided mediastinal LAD suspect reactive to PNA
NEG MRSA screen 07/23/24
HX multiple NEG w/u for aspiration
Recurrent PNA ( March 2024 , Jun 2024 )
HX Hypogammaglobulinemia
Chronic cough HX
- Pending LA
- Hold Lasix
- LR IV in place of IV NS
- agree with IV Zosyn
- Stop IV vancomycin
- cont SUPERINTENDENT TRANSMISSION Azithromycin
- Mucolytics
- Vest Rx
- incentive spirometry
- O2 to keep POx > 93 %
Hypokalemia
- Correct PO KCL 40 x1
- f/u K in AM
Chr b/l Zia edema on Lasix
No prior HX CHF
Prior LVEF 55-60
- Hold lasix due to hypotension
HX Asthma-followed by Dr. Szymanski
- on Symbicort and Xopenex as well as Aurea, Astelin and Flonase
HX Pulmonary nodule-7-8 mm stable
- OP f/u with Dr. Szymanski
Chronic normocytic mild anemia
Current Hgb 10.4 is at baseline mid 10s
- trend Hgb
Currently hypotesive due to sepsis
Essentila Hypertension.
- Hold Lasix
- hold valsaratan
Hyperlipidemia
- c/w atrvastatin
Diabetes.- A1C 5.7 on 03/22 24
- not on any Meds
- check A1C
HX CVA
- c/w Plavix and Statin
Hypothyroid.
- c/w LT4
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
- on Donepezil and memantine
Anxiety/depression/schizoaffective disorder
- c/w Mirtazapine
Conditions present prior to admission:
Obesity/bariatric surgery.
EVELINA resolved with weight loss.
GERD.
Vertigo.
Diverticulosis.
Cholecystectomy.
Right knee repair.
Tonsillectomy.
Carpal tunnel 2020 11/2022.
DVT Px: LMWH
DNR
IP TLM
[2024-08-28] MEDS: LR 1000 IV (22:22)
[2024-08-28] MEDS: KCL 40 MEQ PO (22:22)
[2024-08-28] MEDS: NORCO 7.5/325 1 TABLET PO (22:46)
--- NOTE | 2024-08-28 23:56 | PTCARENOTE ---
Received pt from ED via stretcher. Pt ambulated to bed with stand by assist. AAOx3. Oriented to floor, call michelle within reach
[2024-08-29] VITALS (7 sets, daily range): BP systolic 105–134; BP diastolic 50–95; PULSE 99; O2SAT 94–95; BMI 29.9
[2024-08-29 00:14] LABS: Glucose - Point of Care 179 mg/dl (70-99)
[2024-08-29] MEDS: SENOKOT-S PO ×2 (00:16→22:04)
[2024-08-29] MEDS: ANTIVERT 25 MG PO ×4 (00:16→21:55)
[2024-08-29] MEDS: FLEXERIL 10 MG PO ×2 (00:17→21:56)
[2024-08-29] MEDS: REMERON 45 MG PO ×2 (00:17→21:56)
[2024-08-29] MEDS: PEPCID 40 MG PO ×2 (00:18→21:56)
[2024-08-29] MEDS: ARICEPT 10 MG PO ×2 (00:18→21:55)
[2024-08-29] MEDS: LR 1000 IV ×2 (00:45→03:15)
[2024-08-29] MEDS: XANAX 0.5 MG PO ×2 (02:09→21:57)
[2024-08-29] MEDS: ZOSYN 50 IV ×4 (04:25→21:57)
[2024-08-29] MEDS: SYNTHROID 50 MCG PO (05:33)
[2024-08-29 07:07] LABS: Glucose - Point of Care 121 mg/dl (70-99)
[2024-08-29] MEDS: SPIRIVA RESPIMAT 2.5 MCG 2 PUFF INH (07:32)
[2024-08-29] MEDS: SYMBICORT 160/4.5 MCG INHALER 2 PUFF INH ×2 (07:32→19:21)
[2024-08-29 08:25] LABS: % Basophils 0.1 % (0-2); % Immature Granulocytes 0.2 % (0-0.5); % Lymphocytes 9.5 % (20.5-51.1); % Monocytes 4.7 % (1.7-9.3); % Neutrophils 84.5 % (42.2-75.2); Absolute Eosinophils 0.1 10^3/uL (0-0.7); Absolute Lymphocytes 0.8 10^3/uL (1.2-3.4); Absolute Monocytes 0.4 10^3/uL (0.1-0.6); Hematocrit 29.5 % (37.0-47.0); Hemoglobin 9.7 g/dL (12.0-16.0); Mean Corp Hgb Conc. 32.9 g/dL (33.0-37.0); Mean Corpuscular Hgb 30.1 pg (27.0-31.0); Mean Corpuscular Volume 91.6 fL (81.0-99.0); Mean Platelet Volume 9.1 fL (7.4-10.4); Nucleated Red Blood Cells % 0 %; Platelet Count 156 10^3/uL (130-400); Red Blood Cell Count 3.22 10^6/uL (4.20-5.40); Red Cell Dist. Width 14.2 % (11.5-14.5); White Blood Cell Count 8.2 10^3/uL (4.8-10.8)
[2024-08-29 09:04] LABS: ALT (SGPT) 24 U/L (0-35); AST (SGOT) 23 U/L (14-36); Albumin 2.4 g/dl (3.5-5.0); Alkaline Phosphatase 92 U/L (38-126); Blood Urea Nitrogen 8 mg/dl (7-17); Calcium 8.1 mg/dl (8.4-10.2); Carbon Dioxide 28 mmol/L (22-30); Chloride 102 mmol/L (98-107); Estimated Creatinine Clearance 103 ml/min; Glucose 130 mg/dl (70-99); Potassium 3.5 mmol/L (3.5-5.1); Sodium 136 mmol/L (135-145); Total Bilirubin 0.7 mg/dl (0.2-1.3); Total Protein 4.5 g/dl (6.3-8.2); eGFR > 60.00
[2024-08-29] MEDS: NOVOLOG FLEXPEN-LOW RESISTANCE SC ×3 (09:22→17:13)
[2024-08-29 09:34] LABS: Glycohemoglobin (HgbA1c) 5.8 % (4.0-5.6)
[2024-08-29] MEDS: OSCAL 500 + D 500 MG PO (09:41)
[2024-08-29] MEDS: PLAVIX 75 MG PO (09:41)
[2024-08-29] MEDS: LIPITOR 80 MG PO (09:41)
[2024-08-29] MEDS: VITAMIN B-12 1000 MCG PO (09:41)
[2024-08-29] MEDS: NAMENDA 10 MG PO ×2 (09:41→20:53)
[2024-08-29] MEDS: PROTONIX 40 MG PO ×2 (09:41→20:53)
[2024-08-29] MEDS: COGENTIN 2 MG PO (09:42)
[2024-08-29] MEDS: NORCO 7.5/325 1 TABLET PO ×3 (09:47→23:53)
--- NOTE | 2024-08-29 10:44 | CM ---
Patient seen at bedside. Patient stated that she lives with her significant other and family members in a 2 story home. Patient PCP is Dr. Mckenna and she uses the [facility] for medications. Patient plan is for home with no needs vs VN.
Patient has been at [facility] several times but currently wants to go home if appropriate. CM will continue to follow for discharge planning needs.
Plan; home with VN vs SNF pending assessments.
--- NOTE | 2024-08-29 11:09 | CON.PUL ---
Consultation
Consultation Request
Date/Time Consultation Requested: 08/29/2024-11 AM
Date/Time Consultation Performed: 08/29/2020 4-12 noon
Requesting Provider: Hospitalist-Dr. Matias
Performing Provider: Dr. Tse
Reason for Consultation: Pneumonia
Medical History
-
Chief Complaint: Chest pain and pneumonia
History of Present Illness:
69-year-old with a history of asthma followed by Dr. Szymanski, suspected silent aspiration, obstructive sleep apnea, hypertension, hyperlipidemia, diabetes, CVA, cognitive impairment as well as anxiety/depression/schizoaffective disorder who
presented with nonproductive cough, shortness of breath after recent hospitalization for community-acquired pneumonia 07/08/2024 and now readmitted with chest pain and pneumonia-pulmonary consulted for pneumonia 08/29/24.. The patient states that
after she was discharged and routinely use her vest therapy, her pulmonary condition improved significantly. She had minimal chest congestion. When she presented with a complaint of atypical left-sided chest pain. She felt like it was
musculoskeletal. She denies any worsening shortness breath, increased dyspnea exertion, hemoptysis, pleurisy, abdominal pain, increased leg swelling or weakness.
Past Medical History
Past Medical History: None (Asthma. Pulmonary nodule. EVELINA resolved with weight loss. Obesity/bariatric surgery. Recurrent pneumonias. IgG3 deficienc.Hypertension. Hyperlipidemia. Diabetes. Hypothyroid. History CVA.
Anxiety/depression/schizoaffective disorder. Cognitive dysfunction. GERD. Vertigo. Diverticulosis.)
Past Surgical History: None (Cholecystectomy. Right knee repair. Tonsillectomy. Carpal tunnel 11/2022. Cataract. Glaucoma. Hysterectomy.)
Social History
Tobacco: Non-smoker
Alcohol: None
Drug: None
Occupational Exposures: No known asbestos exposure
Environmental Exposures: . No known tuberculosis exposure
Family History
Family History: Other (. Father-COPD. Mother-CVA and hypertension)
Allergies / Home Medications
Allergies
Allergy/AdvReac Type Severity Reaction Status Date / Time
celecoxib [From Celebrex] Allergy Unknown Verified 08/28/24 17:57
hydrochlorothiazide Allergy Unknown Verified 08/28/24 17:57
NSAIDS (Non-Steroidal Allergy Gastric Verified 08/28/24 17:57
Anti-Inflamma Bypass
pregabalin [From Lyrica] Allergy Unknown Verified 08/28/24 17:57
promethazine Allergy Unknown Verified 08/28/24 17:57
zolpidem [From Ambien] Allergy Unknown Verified 08/28/24 17:57
Home Medications
�Medication �Instructions �Recorded �Confirmed �Last Taken �Type
famotidine 40 mg tablet 40 mg PO HS Gastrointestinal Issue 05/19/15 08/28/24 08/27/24 History
atorvastatin 80 mg tablet 80 mg PO DAILY High Cholesterol 01/10/23 08/28/24 08/28/24 History
benzonatate 200 mg capsule 200 mg PO TIDPRN PRN cough 01/10/23 08/28/24 Unknown History
clopidogrel 75 mg tablet 75 mg PO DAILY Blood Clot 01/10/23 08/28/24 08/28/24 History
Prevention/Tx
donepezil 10 mg tablet 10 mg PO HS Mental Health/Anxiety 01/10/23 08/28/24 08/27/24 History
levalbuterol tartrate 45 2 inh inhalation R Q6HPRN PRN sob 01/10/23 08/28/24 Unknown History
mcg/actuation aerosol inhaler ##0
(Xopenex HFA)
levothyroxine 50 mcg tablet 50 mcg PO DAILY Thyroid 01/10/23 08/28/24 08/28/24 History
lidocaine 1.8 % topical patch 3 patch topical DAILYPRN PRN b/l 01/10/23 08/28/24 03/22/24 History
(ZTlido) knee,hip and/or lower back
mirtazapine 45 mg tablet 45 mg PO HS Mental Health/Anxiety 01/10/23 08/28/24 08/27/24 History
pantoprazole 40 mg tablet,delayed 40 mg PO BID Gastrointestinal Issue 01/10/23 08/28/24 08/28/24 History
release (Protonix)
sennosides 8.6 mg-docusate sodium 3 tab-cap PO HS Constipation ##0 01/10/23 08/28/24 08/27/24 History
50 mg tablet
valsartan 40 mg tablet 20 mg PO DAILY Blood Pressure 01/10/23 08/28/24 08/28/24 History
benztropine 1 mg tablet 1 mg PO BID@1200,2000 01/12/23 08/28/24 07/22/24 History
extrapyrimadal symptoms
cyanocobalamin (vitamin B-12) 1,000 mcg PO Q48H Supplement 05/14/23 08/28/24 Unknown History
1,000 mcg tablet
cyclobenzaprine 10 mg tablet 10 mg PO HS Muscle Spasms 05/14/23 08/28/24 08/27/24 History
ergocalciferol (vitamin D2) 1,250 1,250 mcg PO WE Supplement 05/14/23 08/28/24 08/23/24 History
mcg (50,000 unit) capsule
hydrocodone 10 mg-acetaminophen 1 tab PO Q6HPRN PRN severe pain 05/14/23 08/28/24 03/22/24 History
325 mg tablet
lidocaine-prilocaine 2.5 %-2.5 % 1 applic topical Q8HPRN PRN 05/14/23 08/28/24 Unknown History
topical cream breakthrough mild pain
memantine 10 mg tablet 10 mg PO BID Neurological Condition 05/14/23 08/28/24 08/28/24 History
ondansetron 4 mg disintegrating 4 mg PO BIDPRN PRN nausea 05/14/23 08/28/24 Unknown History
tablet
furosemide 40 mg tablet 80 mg PO TUSA Fluid 07/13/23 08/28/24 08/26/24 History
Retention/Swelling
tizanidine 2 mg tablet 2 mg PO BID Muscle Spasms 07/13/23 08/28/24 08/28/24 History
budesonide-formoterol HFA 160 2 inh inhalation R BID 10/08/23 08/28/24 08/28/24 History
mcg-4.5 mcg/actuation aerosol Lung/Breathing Issues
inhaler (Symbicort)
cranberry 500 mg capsule 4,200 mg PO BID Supplement 03/22/24 08/28/24 08/28/24 History
fluticasone propionate 50 1 spray intranasal BID Congestion 03/22/24 08/28/24 08/28/24 History
mcg/actuation nasal
spray,suspension
pregabalin 25 mg capsule (Lyrica) 25 mg PO TIDPRN PRN neuropathy 03/22/24 08/28/24 Unknown History
sucralfate 1 gram tablet 1 g PO BIDPRN PRN stomach ulcer 03/22/24 08/28/24 Unknown History
benztropine 2 mg tablet 2 mg PO DAILY EPS 07/07/24 08/28/24 08/28/24 History
calcium 500 mg-vitamin D3 100 1 tab PO DAILY Supplement 07/07/24 08/28/24 08/28/24 History
unit-vitamin K 40 mcg chewable
tablet
potassium chloride 20 mEq 20 meq PO BID Electrolyte Repletion 07/07/24 08/28/24 08/28/24 History
tablet,extended
release(part/cryst) (Klor-Con M)
alprazolam 0.5 mg tablet 0.5 mg PO QIDPRN PRN Mental 07/23/24 08/28/24 Unknown History
Health/Anxiety
furosemide 40 mg tablet (Lasix) 40 mg PO SUMOWETHFR Fluid 07/23/24 08/28/24 08/28/24 History
Retention/Swelling
azithromycin 250 mg tablet 250 mg PO Q48H 08/28/24 08/28/24 Unknown History
meclizine 25 mg tablet 25 mg PO TID 08/28/24 08/28/24 08/28/24 History
tiotropium bromide 18 mcg capsule 1 cap inhalation R DAILY 08/28/24 08/28/24 08/28/24 History
with inhalation device (Spiriva
with HandiHaler)
Review of Systems
-
Unable to Obtain full review of systems at this time due to: Other (Per HPI)
Vitals / Labs / Diagnostic Testing
Vital Signs
Temp Pulse Resp BP Pulse Ox
98.1 F 78 16 120/54 98
08/29/24 07:25 08/29/24 07:37 08/29/24 07:37 08/29/24 07:25 08/29/24 07:37
Lab Data
08/29/24 07:59
08/29/24 07:59
Microbiology
08/28/24 18:03 Nasal Swab Influenza Types A & B (DEL) - Final
Negative for Influenza A & B, NAAT
Negative results must be combined with clinical observations
and patient history.
Nucleic Acid Amplification test (NAAT)performed on the
[employer] platform.
Diagnostic Testing:
Physical Exam
-
Exam:
Well-nourished and well-developed in no apparent distress
HEENT-atraumatic, normocephalic
Neck-supple, no JVD, no bruit
Heart-regular rate and rhythm-no murmurs, rubs or gallops
Chest-clear to auscultation, no wheezes, crackles
Back-no tenderness
Abdomen-soft, nontender, nondistended, no hepatosplenomegaly
Extremities-no cyanosis, clubbing, edema and good peripheral pulses
Integument-intact, no rashes, lesions or ecchymosis
Neurology-alert and oriented, nonfocal motor and sensory exam
Assessment
-
69-year-old with a history of asthma followed by Dr. Szymanski, suspected silent aspiration, obstructive sleep apnea, hypertension, hyperlipidemia, diabetes, CVA, cognitive impairment as well as anxiety/depression/schizoaffective disorder who
presented with nonproductive cough, shortness of breath after recent hospitalization for community-acquired pneumonia 07/08/2024 and now readmitted with chest pain and pneumonia-pulmonary consulted for pneumonia 08/29/24.
Recurrent pneumonia-severe multifocal left-sided community acquired with recent hospitalization
Atypical chest pain
Chronic cough
Aspiration risk
Leukocytosis.
Lihyhd-tkvtuntugy-nnpygoxoog 9.7.
Hyperglycemia
Conditions present prior to admission:
Hospitalization 07/2024-recurrent pneumonia left upper lobe
Hospitalization March 2024-right lower lobe pneumonia-aspiration suspected
Hospitalization 06/2024-right lower lobe pneumonia
Asthma-followed by Dr. Szymanski-maintained on Symbicort and Xopenex as well as Aurea, Astelin and Flonase
Pulmonary nodule-7-8 mm stable
Recurrent pneumonia-aspiration suspected.
IgG3 deficiency
EVELINA resolved with weight loss.
Obesity/bariatric surgery.
Hypertension.
Hyperlipidemia.
Diabetes.
Hypothyroid.
History CVA.
Anxiety/depression/schizoaffective disorder.
Cognitive dysfunction.
GERD.
Vertigo.
Diverticulosis.
Cholecystectomy. Right knee repair. Tonsillectomy. Carpal tunnel 11/2022. Cataract. Glaucoma. Hysterectomy.
Plan
Respiratory decompensation in the form of a chronic cough and persistent but slightly improved opacification on chest x-ray could be consistent with recurrent silent aspiration pneumonia, however, repetitive workup reveals no evidence for
aspiration-noninfectious airspace opacification differential would also include cryptogenic organizing pneumonia, etc.
Supplemental oxygen as needed-attempt to wean
Assess discharge supplemental oxygen needs
Mucolytic's
Aspiration precautions
Previous Speech therapy evaluation-evaluation noted, regular diet with thin liquids, video swallow if silent aspiration suspected
Video swallow also noted
No diet modifications required
Nebulizers as needed.
Symbicort 160/4.5, continues
Mucus clearing devices
Incentive spirometry
Flutter.
Vest therapy continues twice daily-patient feels benefit.
Chest physiotherapy left base with postural drainage
Steroids added previous admission for persistent wheezing--and she responded well-We'll likely add steroids after ESR/pro-calcitonin in the a.m.
CT chest summarized below
Consider bronchoscopy if recurrent infiltrates without clear etiology-hold off for now
Steroids initiated for ongoing wheezing and unexplained pulmonary infiltrates-possible cryptogenic organizing pneumonia
IgG total 07/26/2024-low 574
IgM normal 93
Immunoglobulin levels 07/26/2024- IgG 3-low at 9.
IgE-51
Consider outpatient replacement therapy with recurrent infections
Cultures reviewed.
MRSA screen negative.
Influenza negative.
Blood cultures negative..
Previously, she was unable to produce sputum.
Empiric antibiotics initiated-doxycycline and Zosyn.
Check ESR and pro-calcitonin
Previous barium swallow/upper GI series completed without evidence of dysmotility and without evidence for complications of the gastric bypass..
Previous GI evaluation- noted
Follow hemoglobin
Transfuse if needed
Monitor blood sugar
Insulin supplementation if needed
DVT prophylaxis-on subcu heparin
GI prophylaxis-on Pepcid at night
Nutrition with aspiration precautions
Early mobilization
Reviewed with nursing as well as primary team
Patient was last seen by Dr. Szymanski 03/07/2024 and has a follow-up appointment 04/05/2024 at 4:15 PM.-Consider gamma globulin replacement therapy or even Biologics and requires radiographic follow-up
Diagnostic data:
CXR 10/29/22: New areas of linear interstitial airspace disease in the right middle lobe and basilar portion of the left lower lobe suggesting interstitial pneumonia/bronchiolitis
Chest x-ray 03/02/2024-��NAD
Chest x-ray 03/22/20244152-sjbou-psrrf pneumonia, no large parapneumonic effusion is appreciated
Chest x-ray 07/07/2024-left lower lobe pneumonia
Chest x-ray 07/23/2024-persistent patchy opacification in the left lung with some improvement compared to 07/10/2024, mildly elevated right hemidiaphragm
Chest x-ray 08/28/24-moderate amount of asymmetrical opacification left upper lobe and lower lobes consistent with pneumonia increased since 07/23/24,
CT scan08/09/2023: Reviewed,Jermaine Stanley 08/24/2023 08:54:12 AM >��1. Stable left lisa-fissural nodule, likely benign.2.� Interval resolution of previously seen left upper lobe groundglass densities.��������-��������CXR 05/16/2023: Right
upper lobe pneumonia appears unchanged. Linear foci in the left lower lobe may be subsegmental atelectasis.��������-��������
CT chest 04/12/2023: Previous opacity/pneumonia in the right lower lobe has resolved. Mild scarring versus atelectasis in the mid to lower lung zones. A perifissural nodule in the left mid to lower lung zone has remained stable. Multiple subtle
groundglass nodular opacities have developed in the left upper lobe measuring up to 8.4 mm.��������-
VSE 01/12/2023: Upper laryngeal penetration. No aspiration.��������-��������
CT chest 01/10/2023:showed no evidence for central pulmonary embolism. Patchy right lower lobe opacification, most likely pneumonia. Prominence of pulmonary interstitium some vague groundglass opacities bilaterally, sparing the Overload. Mild chronic
fiber changes.��������-��������
CT chest01/10/2023: showed no evidence for acute pulmonary embolism.Right lower lobe airspace disease, likely pneumonia, new compared to November 2022. Mild bilateral groundglass opacities.Stable left lower lobe pulmonary nodule.��������-��������
CT chest 2022:Reviewed, showed 8 mm pleural-based pulmonary nodule slightly increased compared to prior examinations.����������������-��������
CT chest 05/08/2022: Solid pleural-based 8 mm left lower lobe pulmonary nodule. Appearance of slight increase in size. However this can be due to the location and the slice image. Moderate right upper lobe and right lower lobe atelectasis versus
scarring. Mild lingular and right middle lobe atelectasis versus scarring. Gallbladder has been removed.
CT sinus 03/14/2024-unremarkable CT of the sinuses
CT chest 04/24/2024-resolution of right pneumonia, low lung volumes with scattered bilateral subsegmental atelectasis, stable 7 mm solid pulmonary nodule,moderate elevation of right hemidiaphragm
CT chest 08/28/24. -severe airspace consolidation left upper lobe and lower lobe increased, but slightly different distribution than 07/25/24, mild to moderate left hilar and left sided mediastinal lymphadenopathy
Lower extremity ultrasound 03/22/2024-no evidence for DVT
PFT 08/24/2023-FEV1 2.16-86%, FVC 2.78-84%, TLC 76%, RV 55%, DLCO 72%, DLCO/VA 89%
Data Reviewed
-
PFT: Report reviewed by me
EKG: Report reviewed by me
Radiology: Image personally visualized and interpreted and Report reviewed by me
CT Scan: Image personally visualized and interpreted and Report reviewed by me
Medical Tests (Nuc Med, Echo etc): Report reviewed by me
Labs: Labs reviewed by me
Old Records: Reviewed
Critical Care Time (in minutes): 65
[2024-08-29] MEDS: ZANAFLEX 2 MG PO ×2 (11:20→20:53)
[2024-08-29] MEDS: VIBRAMYCIN 100 MG PO ×2 (11:21→20:53)
[2024-08-29 11:46] LABS: Glucose - Point of Care 150 mg/dl (70-99)
[2024-08-29] MEDS: COGENTIN 1 MG PO ×2 (12:35→20:53)
--- NOTE | 2024-08-29 13:58 | W.PN.HOSP.TC ---
Today's Communication/Plan
-
Maintain empiric antibiotics
Check Legionella/strep urine antigen
pulmonology consult
Assessment / Plan
Assessment / Plan
CT PE study:
1. SEVERE AIRSPACE CONSOLIDATION in the left upper and lower lobes which appears increased, but in a slightly different distribution than on 07/25/2024 most consistent with SEVERE LEFT UPPER and
LOWER LOBE PNEUMONIA. A severe inflammatory pneumonitis or lung cancer are considered less likely.
2. Mild to moderate left hilar and left-sided mediastinal lymphadenopathy.
3. Mild scarring in the left lung.
4. Moderate chronic elevation of the anterior right hemidiaphragm.
5. Moderate calcific atherosclerotic plaque in the left coronary artery

1. Left lung pneumonia
History of recurrent pneumo
Sepsis ruled out - Hypotension only
-CT chest showing severe airspace consolidation in the left lung
-No associated significant leukocytosis/patient afebrile
-Flu/covid neg. recheck strep and legionella.
-Unable to be sputum culture is dry cough only
-Patient have problem with recurrent pneumonia and in past there was question of possible cryptogenic pneumonia versus other autoimmune/inflammatory process playing a role
-Maintain patient on empiric Zosyn and doxycycline
-Pulmonology has requested to evaluate as well
2. Acute hypoxic respite insufficiency
-Patient was hypoxic yesterday, oxygenation better
-Continue monitoring and provide oxygen nasal cannula if needed
3. Hypokalemia
-Improved with replacement,
4. COPD
-No signs of exacerbation
-Continue Xopenex/Symbicort/Spiriva
5.Chronic back/knee pain/arthritis
-Patient was treated by rheumatology then referred to pain management the last 8 years
-Patient follows with [facility] pain management Dr. Heath in [place]
-Continue Z2 lidocaine patch 5%( May use own from [facility]), tizanidine, pregabalin, Vicodin 10mg/325mg every 6 hours scheduled
Lidocaine 2.5%/try looking 2.5% 30 g patient applies to posterior knees, hips, lower back and toes alternating 3 times daily as needed(may use own cream)
6. Right lower rib costochondritis
-Tenderness on palpation and reproducible
-apply NSAID cream
Obstructive sleep apnea -resolved post gastric bypass/weight loss
Chronic normocytic anemia
Type 2 diabetes mellitus
Hyperlipidemia
History of stroke
Gastroesophageal reflux disease
History of gastric bypass
Hypothyroidism
Anxiety/Depression/Schizoaffective disorder
h/o Diverticulosis
History of vertigo
History of chronic pain with HLA-B 27 gene factor/patient states history of ankylosing spondylosis
osteoporosis
fibromyalgia
RA
Chronic b/l lower extremity edema
Obesity/Hx bariatric surgery�BMI 30
DVT prophylaxis- subq heparin
DNR/DNI
Case discussed with pulmonology
Total time spent : 51 mins
I personally saw and examined the patient.
I have reviewed all diagnostic interpretations and treatment plans as written.
Time includes patient management by me, time spent at the patients bedside, time to review lab and imaging results, discussing patient care, documentation in the medical record, and time spent with the family or caregiver and discussing care plan
with RN/Consultants.
Anticipated Discharge: 24 - 48 hours
Subjective/Interval History
-
Date of Service: August 29, 2024
Not on oxygen
Afebrile overnight
Have dry cough
Objective Data
-
Labs:
Laboratory Results
08/29/24
07:59
WBC 8.2
Hgb 9.7 L
Hct 29.5 L
Plt Count 156
Sodium 136
Potassium 3.5
Chloride 102
Carbon Dioxide 28
BUN 8
Creatinine 0.6
Glucose 130 H
Calcium 8.1 L
Total Bilirubin 0.7
AST 23
ALT 24
Alkaline Phosphatase 92
Vital Signs:
Vital Signs
Temp Pulse Resp BP Pulse Ox
98.5 F 84 18 105/71 94
08/29/24 11:20 08/29/24 11:20 08/29/24 11:20 08/29/24 11:20 08/29/24 11:20
I&O
08/28/24 08/29/24 08/30/24
06:59 06:59 06:59
Intake Total 480 / 480 320 / 320
Balance 480 / 480 320 / 320
Review of Systems
-
Respiratory: Reports No Symptoms
Cardiac: Reports No Symptoms
Abdomen/GI: Reports No Symptoms
Physical Exam
-
General: No Apparent Distress
HEENT: Moist Mucous Membranes
Respiratory: Crackles (b/l lung base)
Cardiac: Regular Rhythm and S1/S2
GI: Soft, Nontender, Nondistended and No Hepatosplenomegaly
Musculoskeletal: No Edema
Neuro: Awake, Alert and AO x 3
Psych: Calm
[2024-08-29] MEDS: LOVENOX 40 MG SC (17:11)
[2024-08-29 17:12] LABS: Glucose - Point of Care 113 mg/dl (70-99)
[2024-08-29] MEDS: ZOSYN IV (17:17)
[2024-08-29] MEDS: EMLA CREAM 5 GRAM TOPICAL (17:18)
--- NOTE | 2024-08-29 18:43 | PTCARENOTE ---
Made overnight TRAIN CREW MEMBER aware of preliminary bcx results through [employer].
[2024-08-29] MEDS: MUCINEX 1200 MG PO (20:52)
[2024-08-29] MEDS: LYRICA 25 MG PO (20:57)
[2024-08-29 21:11] LABS: Glucose - Point of Care 149 mg/dl (70-99)
[2024-08-29] MEDS: ZOFRAN ODT (ORALLY DISINTEGRATING) 4 MG PO (21:57)
[2024-08-29] MEDS: NON-FORMULARY ITEM 3 PATCH TOPICAL (23:59)
[2024-08-30 03:21] VITALS: BP 141/77
[2024-08-30] MEDS: ZOSYN 50 IV ×4 (03:43→22:45)
[2024-08-30] MEDS: SYNTHROID 50 MCG PO (05:55)
[2024-08-30] MEDS: NORCO 7.5/325 1 TABLET PO ×3 (05:56→22:47)
[2024-08-30 06:00] VITALS: BMI 30.3
[2024-08-30 07:32] LABS: Glucose - Point of Care 137 mg/dl (70-99)
[2024-08-30 07:39] LABS: % Basophils 0.5 % (0-2); % Eosinophils 2.9 % (0-6); % Immature Granulocytes 0.5 % (0-0.5); % Lymphocytes 20.4 % (20.5-51.1); % Monocytes 5.7 % (1.7-9.3); Absolute Eosinophils 0.1 10^3/uL (0-0.7); Absolute Lymphocytes 0.9 10^3/uL (1.2-3.4); Absolute Monocytes 0.3 10^3/uL (0.1-0.6); Absolute Neutrophils 3.1 10^3/uL (1.4-6.5); Hematocrit 28.8 % (37.0-47.0); Hemoglobin 9.5 g/dL (12.0-16.0); Mean Corpuscular Hgb 30.4 pg (27.0-31.0); Mean Corpuscular Volume 92.3 fL (81.0-99.0); Mean Platelet Volume 9.3 fL (7.4-10.4); Nucleated Red Blood Cells % 0 %; Platelet Count 158 10^3/uL (130-400); Red Blood Cell Count 3.12 10^6/uL (4.20-5.40); White Blood Cell Count 4.4 10^3/uL (4.8-10.8)
[2024-08-30] MEDS: SYMBICORT 160/4.5 MCG INHALER 2 PUFF INH ×2 (07:56→19:41)
[2024-08-30] MEDS: SPIRIVA RESPIMAT 2.5 MCG 2 PUFF INH (07:56)
[2024-08-30 08:11] LABS: Procalcitonin 1.78 ng/ml (0.0-0.25)
[2024-08-30 08:15] LABS: ALT (SGPT) 30 U/L (0-35); AST (SGOT) 34 U/L (14-36); Albumin 2.4 g/dl (3.5-5.0); Alkaline Phosphatase 77 U/L (38-126); Blood Urea Nitrogen 6 mg/dl (7-17); Calcium 8.4 mg/dl (8.4-10.2); Carbon Dioxide 30 mmol/L (22-30); Chloride 103 mmol/L (98-107); Estimated Creatinine Clearance 103 ml/min; Glucose 136 mg/dl (70-99); Potassium 3.6 mmol/L (3.5-5.1); Sodium 139 mmol/L (135-145); Total Bilirubin 0.4 mg/dl (0.2-1.3); Total Protein 4.6 g/dl (6.3-8.2); eGFR > 60.00
[2024-08-30 08:17] VITALS: BP 111/53
[2024-08-30] MEDS: NOVOLOG FLEXPEN-LOW RESISTANCE SC ×2 (08:25→12:12)
[2024-08-30] MEDS: ANTIVERT 25 MG PO ×3 (08:26→22:44)
[2024-08-30] MEDS: MUCINEX 1200 MG PO ×2 (08:26→20:32)
[2024-08-30] MEDS: OSCAL 500 + D 500 MG PO (08:26)
[2024-08-30] MEDS: ZANAFLEX 2 MG PO ×2 (08:26→20:33)
[2024-08-30] MEDS: LIPITOR 80 MG PO (08:26)
[2024-08-30] MEDS: COGENTIN 2 MG PO (08:26)
[2024-08-30] MEDS: PROTONIX 40 MG PO ×2 (08:26→20:32)
[2024-08-30] MEDS: PLAVIX 75 MG PO (08:26)
[2024-08-30] MEDS: VIBRAMYCIN 100 MG PO ×2 (08:26→20:33)
[2024-08-30] MEDS: NAMENDA 10 MG PO ×2 (08:26→20:32)
[2024-08-30] MEDS: DRISDOL (VITAMIN D2) 50000 UNITS PO (09:16)
--- NOTE | 2024-08-30 09:21 | W.PN.PUL.V3 ---
Today's Communication / Plan
-
Wean oxygen
Increase activity
Check cultures
Empiric antibiotics
Empiric steroids-prednisone added
Follow radiographically
Assessment
-
69-year-old with a history of asthma followed by Dr. Szymanski, suspected silent aspiration, obstructive sleep apnea, hypertension, hyperlipidemia, diabetes, CVA, cognitive impairment as well as anxiety/depression/schizoaffective disorder who
presented with nonproductive cough, shortness of breath after recent hospitalization for community-acquired pneumonia 07/08/2024 and now readmitted with chest pain and pneumonia-pulmonary consulted for pneumonia 08/29/24.
Recurrent pneumonia-severe multifocal left-sided community acquired with recent hospitalization
Atypical chest pain
Chronic cough
Aspiration risk
Leukocytosis.
Hspbig-lmdadlpoiz-prrbyllrnw 9.7.
Hyperglycemia
Conditions present prior to admission:
Hospitalization 07/2024-recurrent pneumonia left upper lobe
Hospitalization March 2024-right lower lobe pneumonia-aspiration suspected
Hospitalization 06/2024-right lower lobe pneumonia
Asthma-followed by Dr. Szymanski-maintained on Symbicort and Xopenex as well as Aurea, Astelin and Flonase
Pulmonary nodule-7-8 mm stable
Recurrent pneumonia-aspiration suspected.
IgG3 deficiency
EVELINA resolved with weight loss.
Obesity/bariatric surgery.
Hypertension.
Hyperlipidemia.
Diabetes.
Hypothyroid.
History CVA.
Anxiety/depression/schizoaffective disorder.
Cognitive dysfunction.
GERD.
Vertigo.
Diverticulosis.
Cholecystectomy. Right knee repair. Tonsillectomy. Carpal tunnel 11/2022. Cataract. Glaucoma. Hysterectomy.
Plan
Respiratory decompensation in the form of a chronic cough and persistent but slightly improved opacification on chest x-ray could be consistent with recurrent silent aspiration pneumonia, however, repetitive workup reveals no evidence for
aspiration-noninfectious airspace opacification differential would also include cryptogenic organizing pneumonia, etc.
Supplemental oxygen as needed-attempt to wean
Assess discharge supplemental oxygen needs
Mucolytic's
Aspiration precautions
Previous Speech therapy evaluation-evaluation noted, regular diet with thin liquids, video swallow if silent aspiration suspected
Video swallow also noted
No diet modifications required
Nebulizers as needed.
Symbicort 160/4.5, continues
Mucus clearing devices
Incentive spirometry
Flutter.
Vest therapy continues twice daily-patient feels benefit.
Chest physiotherapy left base with postural drainage
Steroids added previous admission for persistent wheezing--and she responded well-prednisone will be added for potential noninfectious inflammatory pulmonary conditions
Consider biopsy, however, after treatment of infection we will empirically try anti-inflammatory steroids and follow radiographically
CT chest summarized below
Consider bronchoscopy if recurrent infiltrates without clear etiology-hold off for now
Steroids initiated for ongoing wheezing and unexplained pulmonary infiltrates-possible cryptogenic organizing pneumonia
IgG total 07/26/2024-low 574
IgM normal 93
Immunoglobulin levels 07/26/2024- IgG 3-low at 9.
IgE-51
Consider outpatient replacement therapy with recurrent infections
Cultures reviewed.
MRSA screen negative.
Influenza negative.
Blood cultures negative..
Previously, she was unable to produce sputum.
Empiric antibiotics initiated-doxycycline and Zosyn.
ESR-pending
Procalcitonin elevated
Previous barium swallow/upper GI series completed without evidence of dysmotility and without evidence for complications of the gastric bypass..
Previous GI evaluation- noted
Follow hemoglobin
Transfuse if needed
Monitor blood sugar
Insulin supplementation if needed
DVT prophylaxis-on subcu heparin
GI prophylaxis-on Pepcid at night
Nutrition with aspiration precautions
Early mobilization
Reviewed with nursing as well as primary team
Patient was last seen by Dr. Szymanski 03/07/2024 and has a follow-up appointment 04/05/2024 at 4:15 PM.-Consider gamma globulin replacement therapy, chronic low-dose prednisone if COPD suggested or even Biologics and requires radiographic follow-up
Diagnostic data:
CXR 10/29/22: New areas of linear interstitial airspace disease in the right middle lobe and basilar portion of the left lower lobe suggesting interstitial pneumonia/bronchiolitis
Chest x-ray 03/02/2024-��NAD
Chest x-ray 03/22/20243741-molrb-qgoez pneumonia, no large parapneumonic effusion is appreciated
Chest x-ray 07/07/2024-left lower lobe pneumonia
Chest x-ray 07/23/2024-persistent patchy opacification in the left lung with some improvement compared to 07/10/2024, mildly elevated right hemidiaphragm
Chest x-ray 08/28/24-moderate amount of asymmetrical opacification left upper lobe and lower lobes consistent with pneumonia increased since 07/23/24,
CT scan08/09/2023: Reviewed,Jermaine Stanley 08/24/2023 08:54:12 AM >��1. Stable left lisa-fissural nodule, likely benign.2.� Interval resolution of previously seen left upper lobe groundglass densities.��������-��������CXR 05/16/2023: Right
upper lobe pneumonia appears unchanged. Linear foci in the left lower lobe may be subsegmental atelectasis.��������-��������
CT chest 04/12/2023: Previous opacity/pneumonia in the right lower lobe has resolved. Mild scarring versus atelectasis in the mid to lower lung zones. A perifissural nodule in the left mid to lower lung zone has remained stable. Multiple subtle
groundglass nodular opacities have developed in the left upper lobe measuring up to 8.4 mm.��������-
VSE 01/12/2023: Upper laryngeal penetration. No aspiration.��������-��������
CT chest 01/10/2023:showed no evidence for central pulmonary embolism. Patchy right lower lobe opacification, most likely pneumonia. Prominence of pulmonary interstitium some vague groundglass opacities bilaterally, sparing the Overload. Mild chronic
fiber changes.��������-��������
CT chest01/10/2023: showed no evidence for acute pulmonary embolism.Right lower lobe airspace disease, likely pneumonia, new compared to November 2022. Mild bilateral groundglass opacities.Stable left lower lobe pulmonary nodule.��������-��������
CT chest 2022:Reviewed, showed 8 mm pleural-based pulmonary nodule slightly increased compared to prior examinations.����������������-��������
CT chest 05/08/2022: Solid pleural-based 8 mm left lower lobe pulmonary nodule. Appearance of slight increase in size. However this can be due to the location and the slice image. Moderate right upper lobe and right lower lobe atelectasis versus
scarring. Mild lingular and right middle lobe atelectasis versus scarring. Gallbladder has been removed.
CT sinus 03/14/2024-unremarkable CT of the sinuses
CT chest 04/24/2024-resolution of right pneumonia, low lung volumes with scattered bilateral subsegmental atelectasis, stable 7 mm solid pulmonary nodule,moderate elevation of right hemidiaphragm
CT chest 08/28/24. -severe airspace consolidation left upper lobe and lower lobe increased, but slightly different distribution than 07/25/24, mild to moderate left hilar and left sided mediastinal lymphadenopathy
Lower extremity ultrasound 03/22/2024-no evidence for DVT
PFT 08/24/2023-FEV1 2.16-86%, FVC 2.78-84%, TLC 76%, RV 55%, DLCO 72%, DLCO/VA 89%
Subjective Data
-
Date of Service:
Date of Service: August 30, 2024
Chief Complaint: Pulmonary Follow Up and Dyspnea Follow Up
Subjective:
Minimal cough, no significant shortness of breath, mild nonproductive cough, vest therapy not mobilizing secretions like her last admission, no increase in her atypical chest pain or abdominal pain
Review of Systems
General: Other (Per HPI)
Objective Data
Data Reviewed
Vital Signs / I&O:
Vital Signs
Temp Pulse Resp BP Pulse Ox
98.7 F 71 20 111/53 96
08/30/24 08:17 08/30/24 08:17 08/30/24 08:17 08/30/24 08:17 08/30/24 08:17
Intake and Output
08/29/24 08/30/24 08/31/24
06:59 06:59 06:59
Intake Total 480 / 480 1240 / 1240
Balance 480 / 480 1240 / 1240
SaO2: 96
Nasal Cannula flow liters per minute: 1.5
Physical Exam
General: Respiratory Distress (n) and Comfortable
HEENT: Normocephalic
Cardiovascular: Regular Rhythm
Respiratory: Crackles (Right base), Rhonchi (Few expiratory), Non-Labored Respirations, Accessory Resp Muscle Use (n) and Stridor (n)
GI: Soft, Non Distended and Non Tender
Neurology: Awake, Alert and No Motor Deficits
Skin: Warm, Good Color, Cyanosis (n) and Jaundice (n)
Labs/Micro/Reports
Lab Data
08/30/24 07:15
08/30/24 07:15
Microbiology
08/28/24 21:24 Blood/Venous Blood Culture - Preliminary
No Growth in 24 hours- Final report to follow
08/28/24 21:24 Blood/Venous Blood Culture - Preliminary
Positive culture in progress
08/28/24 21:24 Blood/Venous Gram Stain - Preliminary
08/29/24 17:23 Urine Legionella Urinary Antigen - Final
Negative for Legionella pneumophila Serogroup 1 antigen.
A negative result does not rule out the possiblity of
Legionella infection due to other serogroups or species of
Legionella. Clinical correlation is recommended.
08/29/24 17:23 Urine Streptococcus pneumoniae Antigen (M - Final
Negative for Streptococcus pneumoniae antigen.
A negative result does not exclude infection with
Streptococcus pneumoniae. Clinical correlation is
recommended.
08/28/24 18:03 Nasal Swab Influenza Types A & B (DEL) - Final
Negative for Influenza A & B, NAAT
Negative results must be combined with clinical observations
and patient history.
Nucleic Acid Amplification test (NAAT)performed on the
[employer] platform.
[2024-08-30 11:06] LABS: Erythrocyte Sed Rate 16 mm/hour (0-20)
[2024-08-30] MEDS: COGENTIN 1 MG PO ×2 (11:34→20:32)
[2024-08-30] MEDS: DELTASONE 40 MG PO (11:34)
[2024-08-30 11:39] VITALS: BP 128/65
[2024-08-30 12:00] LABS: Glucose - Point of Care 131 mg/dl (70-99)
--- NOTE | 2024-08-30 14:40 | W.PN.HOSP.TC ---
Today's Communication/Plan
-
maintain on abx/steroids
Assessment / Plan
Assessment / Plan
CT PE study:
1. SEVERE AIRSPACE CONSOLIDATION in the left upper and lower lobes which appears increased, but in a slightly different distribution than on 07/25/2024 most consistent with SEVERE LEFT UPPER and
LOWER LOBE PNEUMONIA. A severe inflammatory pneumonitis or lung cancer are considered less likely.
2. Mild to moderate left hilar and left-sided mediastinal lymphadenopathy.
3. Mild scarring in the left lung.
4. Moderate chronic elevation of the anterior right hemidiaphragm.
5. Moderate calcific atherosclerotic plaque in the left coronary artery

1. Left lung pneumonia
History of recurrent pneumo
Sepsis ruled out - Hypotension only
-CT chest showing severe airspace consolidation in the left lung
-No associated significant leukocytosis/patient afebrile
-Flu/Covid neg. Strep and legionella.
-Unable to be sputum culture is dry cough only
-Patient have problem with recurrent pneumonia and in past there was question of possible cryptogenic pneumonia versus other autoimmune/inflammatory process playing a role
-Maintain patient on empiric Zosyn and doxycycline
-Pulmonology evaluated and patient started on oral prednisone.
2. Acute hypoxic respite insufficiency
-Patient was hypoxic yesterday, oxygenation better
-Continue monitoring and provide oxygen nasal cannula if needed
3. Hypokalemia
-Improved with replacement,
4. COPD
-No signs of exacerbation
-Continue Xopenex/Symbicort/Spiriva
5.Chronic back/knee pain/arthritis
-Patient was treated by rheumatology then referred to pain management the last 8 years
-Patient follows with [facility] pain management Dr. Heath in [place]
-Continue Z2 lidocaine patch 5%( May use own from home), tizanidine, pregabalin, Vicodin 10mg/325mg every 6 hours scheduled
Lidocaine 2.5%/try looking 2.5% 30 g patient applies to posterior knees, hips, lower back and toes alternating 3 times daily as needed(may use own cream)
6. Right lower rib costochondritis
-Tenderness on palpation and reproducible
-apply NSAID cream
7. Positive
-possible contamination, CONS in one set of blood cx
Obstructive sleep apnea -resolved post gastric bypass/weight loss
Chronic normocytic anemia
Type 2 diabetes mellitus
Hyperlipidemia
History of stroke
Pulmonary nodule
Asthma
Gastroesophageal reflux disease
History of gastric bypass
Hypothyroidism
Anxiety/Depression/Schizoaffective disorder
h/o Diverticulosis
History of vertigo
History of chronic pain with HLA-B 27 gene factor/patient states history of ankylosing spondylosis
osteoporosis
fibromyalgia
RA
Chronic b/l lower extremity edema
Obesity/Hx bariatric surgery�BMI 30
DVT prophylaxis- subq heparin
DNR/DNI
Anticipated Discharge: 24 - 48 hours
Subjective/Interval History
-
Date of Service: August 30, 2024
continues to have right lower rib cage pain
afebrile overnight
o2 requirement is stable
Objective Data
-
Labs:
Laboratory Results
08/30/24
07:15
WBC 4.4 L
Hgb 9.5 L
Hct 28.8 L
Plt Count 158
Sodium 139
Potassium 3.6
Chloride 103
Carbon Dioxide 30
BUN 6 L
Creatinine 0.6
Glucose 136 H
Calcium 8.4
Total Bilirubin 0.4
AST 34
ALT 30
Alkaline Phosphatase 77
Vital Signs:
Vital Signs
Temp Pulse Resp BP Pulse Ox
97.5 F 76 18 128/65 97
08/30/24 11:39 08/30/24 11:39 08/30/24 11:39 08/30/24 11:39 08/30/24 11:39
I&O
08/29/24 08/30/24 08/31/24
06:59 06:59 06:59
Intake Total 480 / 480 1240 / 1240
Balance 480 / 480 1240 / 1240
Review of Systems
-
Respiratory: Reports No Symptoms
Cardiac: Reports No Symptoms
Abdomen/GI: Reports No Symptoms
Physical Exam
-
General: No Apparent Distress
HEENT: Moist Mucous Membranes
Respiratory: Crackles (b/l lung base); Negative Wheezes
Cardiac: Regular Rhythm and S1/S2
GI: Soft, Nontender, Nondistended and No Hepatosplenomegaly
Musculoskeletal: No Edema
Neuro: Awake, Alert and AO x 3
Psych: Calm
[2024-08-30] MEDS: XANAX 0.5 MG PO (15:44)
[2024-08-30 15:57] VITALS: BP 150/78
[2024-08-30 16:26] LABS: Glucose - Point of Care 219 mg/dl (70-99)
[2024-08-30] MEDS: LOVENOX 40 MG SC (17:07)
[2024-08-30] MEDS: NOVOLOG FLEXPEN-LOW RESISTANCE 2 UNITS SC (17:33)
[2024-08-30 19:41] VITALS: BP 146/82
[2024-08-30 21:38] LABS: Glucose - Point of Care 230 mg/dl (70-99)
[2024-08-30] MEDS: FLEXERIL 10 MG PO (22:44)
[2024-08-30] MEDS: REMERON 45 MG PO (22:44)
[2024-08-30] MEDS: ARICEPT 10 MG PO (22:44)
[2024-08-30] MEDS: PEPCID 40 MG PO (22:44)
[2024-08-30] MEDS: NON-FORMULARY ITEM 3 PATCH TOPICAL (22:49)
[2024-08-30] MEDS: SENOKOT-S PO (23:11)
[2024-08-30 23:55] VITALS: BP 154/70
[2024-08-31 03:19] VITALS: BP 140/71
[2024-08-31] MEDS: ZOSYN 50 IV ×4 (04:23→22:14)
[2024-08-31] MEDS: SYNTHROID 50 MCG PO (04:23)
[2024-08-31] MEDS: XANAX 0.5 MG PO ×2 (04:24→17:50)
[2024-08-31] MEDS: NORCO 7.5/325 1 TABLET PO ×4 (04:48→23:52)
[2024-08-31 06:00] VITALS: BMI 30.7
[2024-08-31 07:19] VITALS: BP 142/77
[2024-08-31 07:22] LABS: Glucose - Point of Care 143 mg/dl (70-99)
[2024-08-31] MEDS: SYMBICORT 160/4.5 MCG INHALER 2 PUFF INH ×2 (08:04→19:33)
[2024-08-31] MEDS: SPIRIVA RESPIMAT 2.5 MCG 2 PUFF INH (08:04)
[2024-08-31] MEDS: MUCINEX 1200 MG PO ×2 (08:46→20:00)
[2024-08-31] MEDS: VIBRAMYCIN 100 MG PO ×2 (08:46→19:59)
[2024-08-31] MEDS: LIPITOR 80 MG PO (08:46)
[2024-08-31] MEDS: DELTASONE 40 MG PO (08:46)
[2024-08-31] MEDS: NOVOLOG FLEXPEN-LOW RESISTANCE SC (08:46)
[2024-08-31] MEDS: ZANAFLEX 2 MG PO ×2 (08:46→19:59)
[2024-08-31] MEDS: VITAMIN B-12 1000 MCG PO (08:46)
[2024-08-31] MEDS: COGENTIN 2 MG PO (08:46)
[2024-08-31] MEDS: PLAVIX 75 MG PO (08:46)
[2024-08-31] MEDS: NAMENDA 10 MG PO ×2 (08:47→19:59)
[2024-08-31] MEDS: OSCAL 500 + D 500 MG PO (08:47)
[2024-08-31] MEDS: PROTONIX 40 MG PO ×2 (08:47→20:00)
[2024-08-31] MEDS: ANTIVERT 25 MG PO ×3 (08:47→22:14)
[2024-08-31 08:50] LABS: % Basophils 0.4 % (0-2); % Eosinophils 1.1 % (0-6); % Immature Granulocytes 0.6 % (0-0.5); % Lymphocytes 25.3 % (20.5-51.1); % Neutrophils 65.6 % (42.2-75.2); Absolute Eosinophils 0.1 10^3/uL (0-0.7); Absolute Lymphocytes 1.2 10^3/uL (1.2-3.4); Absolute Monocytes 0.3 10^3/uL (0.1-0.6); Absolute Neutrophils 3.1 10^3/uL (1.4-6.5); Hematocrit 29.7 % (37.0-47.0); Hemoglobin 9.9 g/dL (12.0-16.0); Mean Corp Hgb Conc. 33.3 g/dL (33.0-37.0); Mean Corpuscular Hgb 30.6 pg (27.0-31.0); Mean Corpuscular Volume 91.7 fL (81.0-99.0); Mean Platelet Volume 9.1 fL (7.4-10.4); Nucleated Red Blood Cells % 0 %; Platelet Count 197 10^3/uL (130-400); Red Blood Cell Count 3.24 10^6/uL (4.20-5.40); Red Cell Dist. Width 13.6 % (11.5-14.5); White Blood Cell Count 4.7 10^3/uL (4.8-10.8)
[2024-08-31 08:53] LABS: ALT (SGPT) 28 U/L (0-35); AST (SGOT) 23 U/L (14-36); Albumin 2.8 g/dl (3.5-5.0); Alkaline Phosphatase 77 U/L (38-126); Blood Urea Nitrogen 7 mg/dl (7-17); Calcium 9.1 mg/dl (8.4-10.2); Carbon Dioxide 27 mmol/L (22-30); Chloride 104 mmol/L (98-107); Estimated Creatinine Clearance 104 ml/min; Glucose 123 mg/dl (70-99); Potassium 3.3 mmol/L (3.5-5.1); Sodium 141 mmol/L (135-145); Total Bilirubin 0.2 mg/dl (0.2-1.3); Total Protein 5.2 g/dl (6.3-8.2); eGFR > 60.00
--- NOTE | 2024-08-31 10:45 | W.PN.PUL.V3 ---
Today's Communication / Plan
-
Antibiotics.
Outpatient radiographic follow-up
Prednisone taper to 10 mg as outlined in note
Outpatient pulmonary follow-up
Assessment
-
69-year-old with a history of asthma followed by Dr. Szymanski, suspected silent aspiration, obstructive sleep apnea, hypertension, hyperlipidemia, diabetes, CVA, cognitive impairment as well as anxiety/depression/schizoaffective disorder who
presented with nonproductive cough, shortness of breath after recent hospitalization for community-acquired pneumonia 07/08/2024 and now readmitted with chest pain and pneumonia-pulmonary consulted for pneumonia 08/29/24.
Recurrent pneumonia-severe multifocal left-sided community acquired with recent hospitalization
Atypical chest pain
Chronic cough
Aspiration risk
Leukocytosis.
Nypsrv-sbuzjdmtef-hrczjsipwq 9.7.
Hyperglycemia
Conditions present prior to admission:
Hospitalization 07/2024-recurrent pneumonia left upper lobe
Hospitalization March 2024-right lower lobe pneumonia-aspiration suspected
Hospitalization 06/2024-right lower lobe pneumonia
Asthma-followed by Dr. Szymanski-maintained on Symbicort and Xopenex as well as Aurea, Astelin and Flonase
Pulmonary nodule-7-8 mm stable
Recurrent pneumonia-aspiration suspected.
IgG3 deficiency
EVELINA resolved with weight loss.
Obesity/bariatric surgery.
Hypertension.
Hyperlipidemia.
Diabetes.
Hypothyroid.
History CVA.
Anxiety/depression/schizoaffective disorder.
Cognitive dysfunction.
GERD.
Vertigo.
Diverticulosis.
Cholecystectomy. Right knee repair. Tonsillectomy. Carpal tunnel 2020 11/2022. Cataract. Glaucoma. Hysterectomy.
Plan
Respiratory decompensation in the form of a chronic cough and persistent but slightly improved opacification on chest x-ray could be consistent with recurrent silent aspiration pneumonia, however, repetitive workup reveals no evidence for
aspiration-noninfectious airspace opacification differential would also include cryptogenic organizing pneumonia, etc.
Supplemental oxygen as needed-attempt to wean
Assess discharge supplemental oxygen needs
Mucolytic's
Aspiration precautions
Previous Speech therapy evaluation-evaluation noted, regular diet with thin liquids, video swallow if silent aspiration suspected
Video swallow also noted
No diet modifications required
Nebulizers as needed.
Symbicort 160/4.5, continues
Mucus clearing devices
Incentive spirometry
Flutter.
Vest therapy continues twice daily-patient feels benefit.
Chest physiotherapy left base with postural drainage
Steroids added previous admission for persistent wheezing--and she responded well-prednisone will be added for potential noninfectious inflammatory pulmonary conditions
Consider biopsy, however, after treatment of infection we will empirically try anti-inflammatory steroids and follow radiographically
CT chest summarized below
Consider bronchoscopy if recurrent infiltrates without clear etiology-hold off for now
Steroids initiated for ongoing wheezing and unexplained pulmonary infiltrates-possible cryptogenic organizing pneumonia
IgG total 07/26/2024-low 574
IgM normal 93
Immunoglobulin levels 07/26/2024- IgG 3-low at 9.
IgE-51
Consider outpatient replacement therapy with recurrent infections
Cultures reviewed.
MRSA screen negative.
Influenza negative.
Blood cultures negative..
Previously, she was unable to produce sputum.
Empiric antibiotics initiated-doxycycline and Zosyn.
ESR-16
Procalcitonin elevated-finish a course of antibiotics
Previous barium swallow/upper GI series completed without evidence of dysmotility and without evidence for complications of the gastric bypass..
Previous GI evaluation- noted
Follow hemoglobin
Transfuse if needed
Monitor blood sugar
Insulin supplementation if needed
DVT prophylaxis-on subcu heparin
GI prophylaxis-on Pepcid at night
Nutrition with aspiration precautions
Early mobilization
Reviewed with nursing as well as primary team.
When discharged-finish antibiotics and prednisone 40 mg daily for 4 days, then 30 mg daily for 4 days, then 20 mg daily for 4 days and then 10 mg until seen by pulmonary
Patient was last seen by Dr. Szymanski 03/07/2024 and has a follow-up appointment 04/05/2024 at 4:15 PM.-Consider gamma globulin replacement therapy, chronic low-dose prednisone if COPD suggested or even Biologics and requires radiographic follow-up
Diagnostic data:
CXR 10/29/22: New areas of linear interstitial airspace disease in the right middle lobe and basilar portion of the left lower lobe suggesting interstitial pneumonia/bronchiolitis
Chest x-ray 03/02/2024-��NAD
Chest x-ray 03/22/20242009-qedlx-tunxo pneumonia, no large parapneumonic effusion is appreciated
Chest x-ray 07/07/2024-left lower lobe pneumonia
Chest x-ray 07/23/2024-persistent patchy opacification in the left lung with some improvement compared to 07/10/2024, mildly elevated right hemidiaphragm
Chest x-ray 08/28/24-moderate amount of asymmetrical opacification left upper lobe and lower lobes consistent with pneumonia increased since 07/23/24,
CT scan08/09/2023: Reviewed,Jermaine Stanley 08/24/2023 08:54:12 AM >��1. Stable left lisa-fissural nodule, likely benign.2.� Interval resolution of previously seen left upper lobe groundglass densities.��������-��������CXR 05/16/2023: Right
upper lobe pneumonia appears unchanged. Linear foci in the left lower lobe may be subsegmental atelectasis.��������-��������
CT chest 04/12/2023: Previous opacity/pneumonia in the right lower lobe has resolved. Mild scarring versus atelectasis in the mid to lower lung zones. A perifissural nodule in the left mid to lower lung zone has remained stable. Multiple subtle
groundglass nodular opacities have developed in the left upper lobe measuring up to 8.4 mm.��������-
VSE 01/12/2023: Upper laryngeal penetration. No aspiration.��������-��������
CT chest 01/10/2023:showed no evidence for central pulmonary embolism. Patchy right lower lobe opacification, most likely pneumonia. Prominence of pulmonary interstitium some vague groundglass opacities bilaterally, sparing the Overload. Mild chronic
fiber changes.��������-��������
CT chest01/10/2023: showed no evidence for acute pulmonary embolism.Right lower lobe airspace disease, likely pneumonia, new compared to November 2022. Mild bilateral groundglass opacities.Stable left lower lobe pulmonary nodule.��������-��������
CT chest 2022:Reviewed, showed 8 mm pleural-based pulmonary nodule slightly increased compared to prior examinations.����������������-��������
CT chest 05/08/2022: Solid pleural-based 8 mm left lower lobe pulmonary nodule. Appearance of slight increase in size. However this can be due to the location and the slice image. Moderate right upper lobe and right lower lobe atelectasis versus
scarring. Mild lingular and right middle lobe atelectasis versus scarring. Gallbladder has been removed.
CT sinus 03/14/2024-unremarkable CT of the sinuses
CT chest 04/24/2024-resolution of right pneumonia, low lung volumes with scattered bilateral subsegmental atelectasis, stable 7 mm solid pulmonary nodule,moderate elevation of right hemidiaphragm
CT chest 08/28/24. -severe airspace consolidation left upper lobe and lower lobe increased, but slightly different distribution than 07/25/24, mild to moderate left hilar and left sided mediastinal lymphadenopathy
Lower extremity ultrasound 03/22/2024-no evidence for DVT
PFT 08/24/2023-FEV1 2.16-86%, FVC 2.78-84%, TLC 76%, RV 55%, DLCO 72%, DLCO/VA 89%
Subjective Data
-
Date of Service:
Date of Service: August 31, 2024
Chief Complaint: Pulmonary Follow Up and Dyspnea Follow Up
Subjective:
no complaints of worsening shortness of breath, no cough, no chest pain or abdominal pain
Review of Systems
General: Other ( per HPI)
Objective Data
Data Reviewed
Vital Signs / I&O:
Vital Signs
Temp Pulse Resp BP Pulse Ox
97.6 F 72 16 142/77 94
08/31/24 07:19 08/31/24 08:09 08/31/24 08:09 08/31/24 07:19 08/31/24 08:09
Intake and Output
08/30/24 08/31/24 09/01/24
06:59 06:59 06:59
Intake Total 1240 / 1240 710 / 710
Balance 1240 / 1240 710 / 710
SaO2: 94
Nasal Cannula flow liters per minute: 1.5
Physical Exam
General: Respiratory Distress (n) and Comfortable
HEENT: Normocephalic
Cardiovascular: Regular Rhythm
Respiratory: Crackles (Right base), Rhonchi (Few expiratory), Non-Labored Respirations, Accessory Resp Muscle Use (n) and Stridor (n)
GI: Soft, Non Distended and Non Tender
Neurology: Awake, Alert and No Motor Deficits
Skin: Warm, Good Color, Cyanosis (n) and Jaundice (n)
Labs/Micro/Reports
Lab Data
08/31/24 07:38
08/31/24 07:38
Microbiology
08/28/24 21:24 Blood/Venous Blood Culture - Preliminary
No Growth in 48 hours- Final report to follow
08/28/24 21:24 Blood/Venous Blood Culture - Preliminary
Coagulase neg. staphylococcus
Positive culture in progress
08/28/24 21:24 Blood/Venous Gram Stain - Preliminary
08/29/24 17:23 Urine Legionella Urinary Antigen - Final
Negative for Legionella pneumophila Serogroup 1 antigen.
A negative result does not rule out the possiblity of
Legionella infection due to other serogroups or species of
Legionella. Clinical correlation is recommended.
08/29/24 17:23 Urine Streptococcus pneumoniae Antigen (M - Final
Negative for Streptococcus pneumoniae antigen.
A negative result does not exclude infection with
Streptococcus pneumoniae. Clinical correlation is
recommended.
08/28/24 18:03 Nasal Swab Influenza Types A & B (DEL) - Final
Negative for Influenza A & B, NAAT
Negative results must be combined with clinical observations
and patient history.
Nucleic Acid Amplification test (NAAT)performed on the
[employer] platform.
[2024-08-31] MEDS: COGENTIN 1 MG PO ×2 (11:23→20:00)
[2024-08-31 11:42] VITALS: BP 155/82
[2024-08-31 12:42] LABS: Glucose - Point of Care 168 mg/dl (70-99)
[2024-08-31] MEDS: NOVOLOG FLEXPEN-LOW RESISTANCE 1 UNITS SC (13:14)
[2024-08-31] MEDS: LYRICA 25 MG PO (13:17)
--- NOTE | 2024-08-31 13:38 | W.PN.HOSP.TC ---
Today's Communication/Plan
-
Continue abx/steroids one more day
possible d/c in 24-48 hrs
Assessment / Plan
Assessment / Plan
CT PE study:
1. SEVERE AIRSPACE CONSOLIDATION in the left upper and lower lobes which appears increased, but in a slightly different distribution than on 07/25/2024 most consistent with SEVERE LEFT UPPER and
LOWER LOBE PNEUMONIA. A severe inflammatory pneumonitis or lung cancer are considered less likely.
2. Mild to moderate left hilar and left-sided mediastinal lymphadenopathy.
3. Mild scarring in the left lung.
4. Moderate chronic elevation of the anterior right hemidiaphragm.
5. Moderate calcific atherosclerotic plaque in the left coronary artery

1. Left lung pneumonia
History of recurrent pneumo
Sepsis ruled out - Hypotension only
-CT chest showing severe airspace consolidation in the left lung
-No associated significant leukocytosis/patient afebrile
-Flu/Covid neg. Strep and legionella.
-Unable to be sputum culture is dry cough only
-Patient have problem with recurrent pneumonia and in past there was question of possible cryptogenic pneumonia versus other autoimmune/inflammatory process playing a role
-Maintain patient on empiric Zosyn and doxycycline
-Pulmonology evaluated and patient started on oral prednisone.
2. Acute hypoxic respite insufficiency
-Patient was hypoxic yesterday, oxygenation better
-Continue monitoring and provide oxygen nasal cannula if needed
3. Hypokalemia
-Improved with replacement,
4. COPD
-No signs of exacerbation
-Continue Xopenex/Symbicort/Spiriva
5.Chronic back/knee pain/arthritis
-Patient was treated by rheumatology then referred to pain management the last 8 years
-Patient follows with [facility] pain management Dr. Heath in [place]
-Continue Z2 lidocaine patch 5%( May use own from home), tizanidine, pregabalin, Vicodin 10mg/325mg every 6 hours scheduled
Lidocaine 2.5%/try looking 2.5% 30 g patient applies to posterior knees, hips, lower back and toes alternating 3 times daily as needed(may use own cream)
6. Right lower rib costochondritis
-Tenderness on palpation and reproducible
-apply NSAID cream
7. Positive
-possible contamination, CONS in one set of blood cx
Obstructive sleep apnea -resolved post gastric bypass/weight loss
Chronic normocytic anemia
Type 2 diabetes mellitus
Hyperlipidemia
History of stroke
Pulmonary nodule
Asthma
Gastroesophageal reflux disease
History of gastric bypass
Hypothyroidism
Anxiety/Depression/Schizoaffective disorder
h/o Diverticulosis
History of vertigo
History of chronic pain with HLA-B 27 gene factor/patient states history of ankylosing spondylosis
osteoporosis
fibromyalgia
RA
Chronic b/l lower extremity edema
Obesity/Hx bariatric surgery�BMI 30
DVT prophylaxis- subq heparin
DNR/DNI
Anticipated Discharge: 24 - 48 hours
Subjective/Interval History
-
Date of Service: August 31, 2024
Continues have some dry cough
clinically feeling better
Afebrile overnight
Objective Data
-
Labs:
Laboratory Results
08/31/24
07:38
WBC 4.7 L
Hgb 9.9 L
Hct 29.7 L
Plt Count 197 D
Sodium 141
Potassium 3.3 L
Chloride 104
Carbon Dioxide 27
BUN 7
Creatinine 0.6
Glucose 123 H
Calcium 9.1
Total Bilirubin 0.2
AST 23
ALT 28
Alkaline Phosphatase 77
Vital Signs:
Vital Signs
Temp Pulse Resp BP Pulse Ox
98.3 F 78 18 155/82 97
08/31/24 11:42 08/31/24 11:42 08/31/24 11:42 08/31/24 11:42 08/31/24 11:42
I&O
08/30/24 08/31/24 09/01/24
06:59 06:59 06:59
Intake Total 1240 / 1240 710 / 710
Balance 1240 / 1240 710 / 710
Review of Systems
-
Respiratory: Reports No Symptoms
Cardiac: Reports No Symptoms
Abdomen/GI: Reports No Symptoms
Physical Exam
-
General: No Apparent Distress
HEENT: Moist Mucous Membranes
Respiratory: Crackles (b/l lung base); Negative Wheezes
Cardiac: Regular Rhythm and S1/S2
GI: Soft, Nontender, Nondistended and No Hepatosplenomegaly
Musculoskeletal: No Edema
Neuro: Awake, Alert and AO x 3
Psych: Calm
[2024-08-31] MEDS: EMLA CREAM 5 GRAM TOPICAL (14:17)
--- NOTE | 2024-08-31 15:13 | CM ---
Patient seen at bedside. Patient states that she is feeling better, off O2. Patient does not feel that she needs VN. CM will continue to follow for discharge planning needs.
Plan; home with no needs vs home with VN watch for home O2
[2024-08-31 15:51] VITALS: BP 154/64
[2024-08-31 16:25] LABS: Glucose - Point of Care 223 mg/dl (70-99)
[2024-08-31] MEDS: LOVENOX 40 MG SC (17:48)
[2024-08-31] MEDS: NOVOLOG FLEXPEN-LOW RESISTANCE 2 UNITS SC (17:51)
[2024-08-31] MEDS: DUONEB 3 ML INH (19:34)
[2024-08-31 21:14] LABS: Glucose - Point of Care 173 mg/dl (70-99)
[2024-08-31] MEDS: REMERON 45 MG PO (22:13)
[2024-08-31] MEDS: FLEXERIL 10 MG PO (22:13)
[2024-08-31] MEDS: PEPCID 40 MG PO (22:14)
[2024-08-31] MEDS: ARICEPT 10 MG PO (22:14)
[2024-08-31] MEDS: SENOKOT-S 3 TABLET PO (22:22)
[2024-08-31 23:35] VITALS: BP 146/78
[2024-09-01] MEDS: EMLA CREAM 5 GRAM TOPICAL ×2 (00:11→16:12)
[2024-09-01] MEDS: XANAX 0.5 MG PO (00:12)
[2024-09-01] MEDS: LYRICA 25 MG PO ×2 (00:12→21:33)
[2024-09-01] MEDS: NON-FORMULARY ITEM 3 PATCH TOPICAL ×2 (00:24→22:15)
[2024-09-01] MEDS: ZOSYN 50 IV ×2 (03:48→09:41)
[2024-09-01] MEDS: SYNTHROID 50 MCG PO ×2 (05:43)
[2024-09-01 05:47] VITALS: BMI 31.0
[2024-09-01] MEDS: NORCO 7.5/325 1 TABLET PO ×3 (05:55→18:41)
[2024-09-01] MEDS: SPIRIVA RESPIMAT 2.5 MCG 2 PUFF INH (07:37)
[2024-09-01] MEDS: SYMBICORT 160/4.5 MCG INHALER 2 PUFF INH ×2 (07:37→19:17)
[2024-09-01 08:09] LABS: Glucose - Point of Care 82 mg/dl (70-99)
[2024-09-01 08:12] VITALS: BP 155/84
[2024-09-01 08:13] LABS: ALT (SGPT) 25 U/L (0-35); AST (SGOT) 18 U/L (14-36); Albumin 2.7 g/dl (3.5-5.0); Alkaline Phosphatase 76 U/L (38-126); Blood Urea Nitrogen 10 mg/dl (7-17); Calcium 8.8 mg/dl (8.4-10.2); Carbon Dioxide 28 mmol/L (22-30); Chloride 105 mmol/L (98-107); Estimated Creatinine Clearance 90 ml/min; Glucose 86 mg/dl (70-99); Potassium 3.5 mmol/L (3.5-5.1); Sodium 144 mmol/L (135-145); Total Bilirubin 0.2 mg/dl (0.2-1.3); Total Protein 5.2 g/dl (6.3-8.2); eGFR > 60.00
[2024-09-01 08:19] LABS: % Basophils 0.6 % (0-2); % Eosinophils 0.4 % (0-6); % Immature Granulocytes 1.9 % (0-0.5); % Lymphocytes 31.6 % (20.5-51.1); % Monocytes 8.3 % (1.7-9.3); % Neutrophils 57.2 % (42.2-75.2); Absolute Immature Granulocytes 0.1 10^3/uL (0-0.05); Absolute Lymphocytes 1.5 10^3/uL (1.2-3.4); Absolute Monocytes 0.4 10^3/uL (0.1-0.6); Absolute Neutrophils 2.7 10^3/uL (1.4-6.5); Hematocrit 29.9 % (37.0-47.0); Hemoglobin 10.1 g/dL (12.0-16.0); Mean Corp Hgb Conc. 33.8 g/dL (33.0-37.0); Mean Corpuscular Hgb 30.7 pg (27.0-31.0); Mean Corpuscular Volume 90.9 fL (81.0-99.0); Mean Platelet Volume 9.4 fL (7.4-10.4); Nucleated Red Blood Cells % 0 %; Platelet Count 193 10^3/uL (130-400); Red Blood Cell Count 3.29 10^6/uL (4.20-5.40); Red Cell Dist. Width 13.5 % (11.5-14.5); White Blood Cell Count 4.7 10^3/uL (4.8-10.8)
[2024-09-01] MEDS: VIBRAMYCIN 100 MG PO ×2 (09:36→21:24)
[2024-09-01] MEDS: NOVOLOG FLEXPEN-LOW RESISTANCE SC ×2 (09:36→12:32)
[2024-09-01] MEDS: DELTASONE 40 MG PO (09:36)
[2024-09-01] MEDS: PLAVIX 75 MG PO (09:37)
[2024-09-01] MEDS: ANTIVERT 25 MG PO ×3 (09:37→21:25)
[2024-09-01] MEDS: NAMENDA 10 MG PO ×2 (09:37→21:24)
[2024-09-01] MEDS: PROTONIX 40 MG PO ×2 (09:38→21:24)
[2024-09-01] MEDS: MUCINEX 1200 MG PO ×2 (09:38→21:24)
[2024-09-01] MEDS: COGENTIN 2 MG PO (09:38)
[2024-09-01] MEDS: ZANAFLEX 2 MG PO ×2 (09:38→21:24)
[2024-09-01] MEDS: LIPITOR 80 MG PO (09:38)
[2024-09-01] MEDS: OSCAL 500 + D 500 MG PO (09:38)
[2024-09-01] MEDS: LASIX 40 MG PO (09:41)
[2024-09-01] MEDS: FLUSH (NSS) 1 FLUSH IV ×2 (09:41→16:04)
--- NOTE | 2024-09-01 10:12 | W.PN.PUL.V3 ---
Today's Communication / Plan
-
.
Prednisone taper to 10 mg until seen by pulmonary
Find a course of antibiotics
Outpatient radiographic follow-up
Pulmonary will sign off- Please call with questions
Assessment
-
69-year-old with a history of asthma followed by Dr. Szymanski, suspected silent aspiration, obstructive sleep apnea, hypertension, hyperlipidemia, diabetes, CVA, cognitive impairment as well as anxiety/depression/schizoaffective disorder who
presented with nonproductive cough, shortness of breath after recent hospitalization for community-acquired pneumonia 07/08/2024 and now readmitted with chest pain and pneumonia-pulmonary consulted for pneumonia 08/29/24.
Recurrent pneumonia-severe multifocal left-sided community acquired with recent hospitalization
Atypical chest pain
Chronic cough
Aspiration risk
Leukocytosis.
Rrhcit-kctolyxjza-zrjmckpdis 9.7.
Hyperglycemia
Conditions present prior to admission:
Hospitalization 07/2024-recurrent pneumonia left upper lobe
Hospitalization March 2024-right lower lobe pneumonia-aspiration suspected
Hospitalization 06/2024-right lower lobe pneumonia
Asthma-followed by Dr. Szymanski-maintained on Symbicort and Xopenex as well as Aurae, Astelin and Flonase
Pulmonary nodule-7-8 mm stable
Recurrent pneumonia-aspiration suspected.
IgG3 deficiency
EVELINA resolved with weight loss.
Obesity/bariatric surgery.
Hypertension.
Hyperlipidemia.
Diabetes.
Hypothyroid.
History CVA.
Anxiety/depression/schizoaffective disorder.
Cognitive dysfunction.
GERD.
Vertigo.
Diverticulosis.
Cholecystectomy. Right knee repair. Tonsillectomy. Carpal tunnel 2020 11/2022. Cataract. Glaucoma. Hysterectomy.
Plan
Respiratory decompensation in the form of a chronic cough and persistent but slightly improved opacification on chest x-ray could be consistent with recurrent silent aspiration pneumonia, however, repetitive workup reveals no evidence for
aspiration-noninfectious airspace opacification differential would also include cryptogenic organizing pneumonia, etc.
Supplemental oxygen as needed-attempt to wean
Assess discharge supplemental oxygen needs
Mucolytic's
Aspiration precautions
Previous Speech therapy evaluation-evaluation noted, regular diet with thin liquids, video swallow if silent aspiration suspected
Video swallow also noted
No diet modifications required
Nebulizers as needed.
Symbicort 160/4.5, continues
Mucus clearing devices
Incentive spirometry
Flutter.
Vest therapy continues twice daily-patient feels benefit.
Chest physiotherapy left base with postural drainage
Steroids added previous admission for persistent wheezing--and she responded well-prednisone will be added for potential noninfectious inflammatory pulmonary conditions
Consider biopsy, however, after treatment of infection we will empirically try anti-inflammatory steroids and follow radiographically
CT chest summarized below
Consider bronchoscopy if recurrent infiltrates without clear etiology-hold off for now
Steroids initiated for ongoing wheezing and unexplained pulmonary infiltrates-possible cryptogenic organizing pneumonia
IgG total 07/26/2024-low 574
IgM normal 93
Immunoglobulin levels 07/26/2024- IgG 3-low at 9.
IgE-51
Consider outpatient replacement therapy with recurrent infections
Cultures reviewed.
MRSA screen negative.
Influenza negative.
Blood cultures negative..
Previously, she was unable to produce sputum.
Empiric antibiotics initiated-doxycycline and Zosyn.
ESR-16
Procalcitonin elevated-finish a course of antibiotics
Previous barium swallow/upper GI series completed without evidence of dysmotility and without evidence for complications of the gastric bypass..
Previous GI evaluation- noted
Follow hemoglobin
Transfuse if needed
Monitor blood sugar
Insulin supplementation if needed
DVT prophylaxis-on subcu heparin
GI prophylaxis-on Pepcid at night
Nutrition with aspiration precautions
Early mobilization
Reviewed with nursing as well as primary team.
Respiratory status has improved-pulmonary We'll sign off- Please call with questions.
When discharged-finish antibiotics and prednisone 40 mg daily for 4 days, then 30 mg daily for 4 days, then 20 mg daily for 4 days and then 10 mg until seen by pulmonary
Patient was last seen by Dr. Szymanski 03/07/2024 and has a follow-up appointment 04/05/2024 at 4:15 PM.-Consider gamma globulin replacement therapy, chronic low-dose prednisone if COPD suggested or even Biologics and requires radiographic follow-up
Diagnostic data:
CXR 10/29/22: New areas of linear interstitial airspace disease in the right middle lobe and basilar portion of the left lower lobe suggesting interstitial pneumonia/bronchiolitis
Chest x-ray 03/02/2024-��NAD
Chest x-ray 03/22/20242768-ztssr-ezvaw pneumonia, no large parapneumonic effusion is appreciated
Chest x-ray 07/07/2024-left lower lobe pneumonia
Chest x-ray 07/23/2024-persistent patchy opacification in the left lung with some improvement compared to 07/10/2024, mildly elevated right hemidiaphragm
Chest x-ray 08/28/24-moderate amount of asymmetrical opacification left upper lobe and lower lobes consistent with pneumonia increased since 07/23/24,
CT scan08/09/2023: Reviewed,Jermaine Stanley 08/24/2023 08:54:12 AM >��1. Stable left lisa-fissural nodule, likely benign.2.� Interval resolution of previously seen left upper lobe groundglass densities.��������-��������CXR 05/16/2023: Right
upper lobe pneumonia appears unchanged. Linear foci in the left lower lobe may be subsegmental atelectasis.��������-��������
CT chest 04/12/2023: Previous opacity/pneumonia in the right lower lobe has resolved. Mild scarring versus atelectasis in the mid to lower lung zones. A perifissural nodule in the left mid to lower lung zone has remained stable. Multiple subtle
groundglass nodular opacities have developed in the left upper lobe measuring up to 8.4 mm.��������-
VSE 01/12/2023: Upper laryngeal penetration. No aspiration.��������-��������
CT chest 01/10/2023:showed no evidence for central pulmonary embolism. Patchy right lower lobe opacification, most likely pneumonia. Prominence of pulmonary interstitium some vague groundglass opacities bilaterally, sparing the Overload. Mild chronic
fiber changes.��������-��������
CT chest01/10/2023: showed no evidence for acute pulmonary embolism.Right lower lobe airspace disease, likely pneumonia, new compared to November 2022. Mild bilateral groundglass opacities.Stable left lower lobe pulmonary nodule.��������-��������
CT chest 2022:Reviewed, showed 8 mm pleural-based pulmonary nodule slightly increased compared to prior examinations.����������������-��������
CT chest 05/08/2022: Solid pleural-based 8 mm left lower lobe pulmonary nodule. Appearance of slight increase in size. However this can be due to the location and the slice image. Moderate right upper lobe and right lower lobe atelectasis versus
scarring. Mild lingular and right middle lobe atelectasis versus scarring. Gallbladder has been removed.
CT sinus 03/14/2024-unremarkable CT of the sinuses
CT chest 04/24/2024-resolution of right pneumonia, low lung volumes with scattered bilateral subsegmental atelectasis, stable 7 mm solid pulmonary nodule,moderate elevation of right hemidiaphragm
CT chest 08/28/24. -severe airspace consolidation left upper lobe and lower lobe increased, but slightly different distribution than 07/25/24, mild to moderate left hilar and left sided mediastinal lymphadenopathy
Lower extremity ultrasound 03/22/2024-no evidence for DVT
PFT 08/24/2023-FEV1 2.16-86%, FVC 2.78-84%, TLC 76%, RV 55%, DLCO 72%, DLCO/VA 89%
Subjective Data
-
Date of Service:
Date of Service: September 01, 2024
Chief Complaint: Pulmonary Follow Up and Dyspnea Follow Up
Subjective:
Feels better, pain improved, no complaints shortness of breath, no complaints of productive cough, no abdominal pain
Review of Systems
General: Other ( per HPI)
Objective Data
Data Reviewed
Vital Signs / I&O:
Vital Signs
Temp Pulse Resp BP Pulse Ox
97.7 F 76 20 155/84 94
09/01/24 08:12 09/01/24 09:41 09/01/24 08:42 09/01/24 09:41 09/01/24 09:52
Intake and Output
08/31/24 09/01/24 09/02/24
06:59 06:59 06:59
Intake Total 710 / 710 1040 / 1040
Balance 710 / 710 1040 / 1040
SaO2: 94
Nasal Cannula flow liters per minute: 1.5
Physical Exam
General: Respiratory Distress (n) and Comfortable
HEENT: Normocephalic
Cardiovascular: Regular Rhythm
Respiratory: Crackles (Right base), Rhonchi (Few expiratory), Non-Labored Respirations, Accessory Resp Muscle Use (n) and Stridor (n)
GI: Soft, Non Distended and Non Tender
Neurology: Awake, Alert and No Motor Deficits
Skin: Warm, Good Color, Cyanosis (n) and Jaundice (n)
Labs/Micro/Reports
Lab Data
09/01/24 07:08
09/01/24 07:08
Microbiology
08/28/24 21:24 Blood/Venous Blood Culture - Preliminary
No Growth in 72 hours- Final report to follow
08/28/24 21:24 Blood/Venous Blood Culture - Preliminary
Coagulase neg. staphylococcus
Positive culture in progress
08/28/24 21:24 Blood/Venous Gram Stain - Preliminary
08/29/24 17:23 Urine Legionella Urinary Antigen - Final
Negative for Legionella pneumophila Serogroup 1 antigen.
A negative result does not rule out the possiblity of
Legionella infection due to other serogroups or species of
Legionella. Clinical correlation is recommended.
08/29/24 17:23 Urine Streptococcus pneumoniae Antigen (M - Final
Negative for Streptococcus pneumoniae antigen.
A negative result does not exclude infection with
Streptococcus pneumoniae. Clinical correlation is
recommended.
[2024-09-01 11:45] LABS: Glucose - Point of Care 138 mg/dl (70-99)
--- NOTE | 2024-09-01 11:57 | CM ---
Patient eager to go home, declined VN and is off of O2. Patient completed IMM and signed form placed on chart. CM will continue to follow for discharge planning needs.
Plan; home with no needs at this time
[2024-09-01 12:29] VITALS: O2SAT 93
[2024-09-01] MEDS: COGENTIN 1 MG PO ×2 (12:32→21:24)
--- NOTE | 2024-09-01 14:20 | PTOTSP ---
Pt is indep in room for ADLs and functional mobility/transfers. No device for mobility, grab bars for bathroom transfers. Pt reports recent months of dropping things. Sensation in hands intact, FMC intact. Recommend outpatient OT for eval/treat
for motor function of hands. Will sign off.
--- NOTE | 2024-09-01 15:55 | W.PN.HOSP.TC ---
Today's Communication/Plan
-
home o2 test
likely d/c tomorrow
Assessment / Plan
Assessment / Plan
CT PE study:
1. SEVERE AIRSPACE CONSOLIDATION in the left upper and lower lobes which appears increased, but in a slightly different distribution than on 07/25/2024 most consistent with SEVERE LEFT UPPER and
LOWER LOBE PNEUMONIA. A severe inflammatory pneumonitis or lung cancer are considered less likely.
2. Mild to moderate left hilar and left-sided mediastinal lymphadenopathy.
3. Mild scarring in the left lung.
4. Moderate chronic elevation of the anterior right hemidiaphragm.
5. Moderate calcific atherosclerotic plaque in the left coronary artery

1. Left lung pneumonia
History of recurrent pneumo
Sepsis ruled out - Hypotension only
-CT chest showing severe airspace consolidation in the left lung
-No associated significant leukocytosis/patient afebrile
-Flu/Covid neg. Strep and legionella.
-Unable to be sputum culture is dry cough only
-Patient have problem with recurrent pneumonia and in past there was question of possible cryptogenic pneumonia versus other autoimmune/inflammatory process playing a role
-Pulmonology evaluated and patient started on oral prednisone.
-Change to Unasyn and doxycycline for now
2. Acute hypoxic respite insufficiency - resolved
-Patient was hypoxic yesterday, oxygenation better
-Continue monitoring and provide oxygen nasal cannula if needed
-Home oxygen test ordered
3. Hypokalemia
-Improved with replacement,
4. COPD
-No signs of exacerbation
-Continue Xopenex/Symbicort/Spiriva
5.Chronic back/knee pain/arthritis
-Patient was treated by rheumatology then referred to pain management the last 8 years
-Patient follows with [facility] pain management Dr. Heath in [place]
-Continue Z2 lidocaine patch 5%( May use own from home), tizanidine, pregabalin, Vicodin 10mg/325mg every 6 hours scheduled
Lidocaine 2.5%/try looking 2.5% 30 g patient applies to posterior knees, hips, lower back and toes alternating 3 times daily as needed(may use own cream)
6. Right lower rib costochondritis
-Tenderness on palpation and reproducible
-apply NSAID cream
7. Positive blood culture
-possible contamination, CONS in one set of blood cx
Obstructive sleep apnea -resolved post gastric bypass/weight loss
Chronic normocytic anemia
Type 2 diabetes mellitus
Hyperlipidemia
History of stroke
Pulmonary nodule
Asthma
Gastroesophageal reflux disease
History of gastric bypass
Hypothyroidism
Anxiety/Depression/Schizoaffective disorder
h/o Diverticulosis
History of vertigo
History of chronic pain with HLA-B 27 gene factor/patient states history of ankylosing spondylosis
osteoporosis
fibromyalgia
RA
Chronic b/l lower extremity edema
Obesity/Hx bariatric surgery�BMI 30
DVT prophylaxis- subq heparin
DNR/DNI
Anticipated Discharge: Within 24 hours
Subjective/Interval History
-
Date of Service: September 01, 2024
No productive cough
Afebrile overnight
Not hypoxic
Objective Data
-
Labs:
Laboratory Results
09/01/24
07:08
WBC 4.7 L
Hgb 10.1 L
Hct 29.9 L
Plt Count 193
Sodium 144
Potassium 3.5
Chloride 105
Carbon Dioxide 28
BUN 10
Creatinine 0.7
Glucose 86
Calcium 8.8
Total Bilirubin 0.2
AST 18
ALT 25
Alkaline Phosphatase 76
Vital Signs:
Vital Signs
Temp Pulse Resp BP Pulse Ox
97.7 F 76 20 155/84 94
09/01/24 08:12 09/01/24 09:41 09/01/24 08:42 09/01/24 09:41 09/01/24 10:12
I&O
08/31/24 09/01/24 09/02/24
06:59 06:59 06:59
Intake Total 710 / 710 1040 / 1040
Balance 710 / 710 1040 / 1040
Review of Systems
-
Respiratory: Reports No Symptoms
Cardiac: Reports No Symptoms
Abdomen/GI: Reports No Symptoms
Physical Exam
-
General: No Apparent Distress
HEENT: Moist Mucous Membranes
Respiratory: Clear to Auscultation; Negative Wheezes
Cardiac: Regular Rhythm and S1/S2
GI: Soft, Nontender, Nondistended and No Hepatosplenomegaly
Musculoskeletal: No Edema
Neuro: Awake, Alert and AO x 3
Psych: Calm
[2024-09-01 16:01] VITALS: BP 159/99
[2024-09-01] MEDS: UNASYN IV ×2 (16:04→21:25)
[2024-09-01 16:31] LABS: Glucose - Point of Care 192 mg/dl (70-99)
--- NOTE | 2024-09-01 16:47 | PTCARENOTE ---
Pt AAO x3, FRY; OOB in room/to BR kev well. Pt speech mumbled/unintelligible at times. VSS. On room air- pulse ox 95%, pt denies SOB. Abd large, soft, kev PO well. Voiding in BR without difficulty. Resting in bed at present, no c/o. Will
continue to monitor.
--- NOTE | 2024-09-01 16:48 | PN.CDI ---
CDI
- -
CDI:
Physician Documentation Request
Admit Date: 08/28/24 22:22
Dear Doctor Florencio,
Please review the following and provide your response in the progress notes.
Clinical Indicators:
Pt admitted with Left Lobe PNA
Documented per pulmonology notes , '... repetitive workup reveals no evidence for aspiration-noninfectious airspace opacification differential would also include cryptogenic organizing pneumonia, etc....'
Progress note 09/01, ' Left lung pneumonia....-Patient have problem with recurrent pneumonia and in past there was question of possible cryptogenic pneumonia versus other autoimmune/inflammatory process playing a role Pulmonology evaluated and
patient started on oral prednisone. Change to Unasyn and doxycycline for now...'
Based on the above, could you clarify in the Progress Notes further specificity regarding the known, suspected or likely type of pneumonia you are treating (recognizing the specific organism may not be known)?
Examples
Cryptogenic organizing pneumonia
Staph Pneumonia - indicate if MRSA or MSSA
Strep Pneumonia - indicate if strep B, strep pneumoniae or other type
Gram negative Pneumonia - indicate if Pseudomonas, Klebsiella or other
Other type ( please specify)
Use of terms such as suspected, likely, concern for, or probable (associated with a specific diagnosis that is being evaluated, monitored, or treated as if it exists) are acceptable and can be coded in the inpatient setting, when documented at the
time of discharge.
Thank you,
Ericka Hutton RN
CDI Specialist
[employer]
Please use your independent medical judgment in providing your response.
[2024-09-01] MEDS: NOVOLOG FLEXPEN-LOW RESISTANCE 1 UNITS SC (17:03)
[2024-09-01] MEDS: LOVENOX 40 MG SC (17:34)
[2024-09-01] MEDS: SENOKOT-S PO (21:15)
[2024-09-01] MEDS: PEPCID 40 MG PO (21:24)
[2024-09-01] MEDS: ARICEPT 10 MG PO (21:24)
[2024-09-01] MEDS: FLEXERIL 10 MG PO (21:24)
[2024-09-01] MEDS: REMERON 45 MG PO (21:25)
[2024-09-01 23:00] VITALS: BP 131/76
[2024-09-02 01:13] LABS: Glucose - Point of Care 249 mg/dl (70-99)
[2024-09-02] MEDS: NORCO 7.5/325 1 TABLET PO ×2 (01:19→08:18)
[2024-09-02] MEDS: UNASYN IV ×2 (04:03→09:57)
[2024-09-02] MEDS: SYNTHROID 50 MCG PO (04:03)
[2024-09-02 07:02] VITALS: BMI 31.0
[2024-09-02 07:15] LABS: Glucose - Point of Care 91 mg/dl (70-99)
[2024-09-02 07:20] VITALS: BP 171/88
[2024-09-02] MEDS: SYMBICORT 160/4.5 MCG INHALER 2 PUFF INH (07:56)
[2024-09-02] MEDS: SPIRIVA RESPIMAT 2.5 MCG 2 PUFF INH (07:56)
[2024-09-02] MEDS: NOVOLOG FLEXPEN-LOW RESISTANCE SC (08:18)
[2024-09-02] MEDS: OSCAL 500 + D 500 MG PO (08:20)
[2024-09-02] MEDS: EMLA CREAM 5 GRAM TOPICAL (08:20)
[2024-09-02] MEDS: ANTIVERT 25 MG PO (08:21)
[2024-09-02] MEDS: VIBRAMYCIN 100 MG PO (08:21)
[2024-09-02] MEDS: MUCINEX 1200 MG PO (08:22)
[2024-09-02] MEDS: DELTASONE 40 MG PO (08:22)
[2024-09-02] MEDS: COGENTIN 2 MG PO (08:22)
[2024-09-02] MEDS: VITAMIN B-12 1000 MCG PO (08:23)
[2024-09-02] MEDS: NAMENDA 10 MG PO (08:23)
[2024-09-02] MEDS: ZANAFLEX 2 MG PO (08:23)
[2024-09-02] MEDS: LIPITOR 80 MG PO (08:23)
[2024-09-02] MEDS: PLAVIX 75 MG PO (08:23)
[2024-09-02] MEDS: PROTONIX 40 MG PO (08:24)
[2024-09-02] MEDS: LASIX 80 MG PO (08:27)
[2024-09-02 09:53] VITALS: BP 119/69
--- NOTE | 2024-09-02 11:14 | CM ---
CM reviewed chart, patient for discharge today. Patient seen bedside, reports no needs upon discharge. Patient confirms transportation home. CM will continue to follow for all discharge planning needs.
Plan; home no needs.
[2024-09-02 11:49] LABS: Glucose - Point of Care 167 mg/dl (70-99)
[2024-09-02] MEDS: COGENTIN 1 MG PO (11:57)
[2024-09-02] MEDS: NOVOLOG FLEXPEN-LOW RESISTANCE 1 UNITS SC (11:58)
--- NOTE | 2024-09-02 15:16 | W.PN.HOSP.TC ---
Addendum entered and electronically signed by Isai Matias MD 09/04/24 15:24:
Addendum added in response to CDI query after patient discharged:
Recurrent Pneumonia -unable to differentiate if infectious source is cryptogenic organizing pneumonia in nature based on available information
Original Note:
Today's Communication/Plan
-
d/c home
Assessment / Plan
Assessment / Plan
CT PE study:
1. SEVERE AIRSPACE CONSOLIDATION in the left upper and lower lobes which appears increased, but in a slightly different distribution than on 07/25/2024 most consistent with SEVERE LEFT UPPER and
LOWER LOBE PNEUMONIA. A severe inflammatory pneumonitis or lung cancer are considered less likely.
2. Mild to moderate left hilar and left-sided mediastinal lymphadenopathy.
3. Mild scarring in the left lung.
4. Moderate chronic elevation of the anterior right hemidiaphragm.
5. Moderate calcific atherosclerotic plaque in the left coronary artery

1. Left lung pneumonia
History of recurrent pneumo
Sepsis ruled out - Hypotension only
-CT chest showing severe airspace consolidation in the left lung
-No associated significant leukocytosis/patient afebrile
-Flu/Covid neg. Strep and legionella.
-Unable to be sputum culture is dry cough only
-Patient have problem with recurrent pneumonia and in past there was question of possible cryptogenic pneumonia versus other autoimmune/inflammatory process playing a role
-Pulmonology evaluated and patient started on oral prednisone.
-Change to Unasyn and doxycycline for now
2. Acute hypoxic respite insufficiency - resolved
-Patient was hypoxic yesterday, oxygenation better
-Continue monitoring and provide oxygen nasal cannula if needed
-Home oxygen test ordered
3. Hypokalemia
-Improved with replacement,
4. COPD
-No signs of exacerbation
-Continue Xopenex/Symbicort/Spiriva
5.Chronic back/knee pain/arthritis
-Patient was treated by rheumatology then referred to pain management the last 8 years
-Patient follows with [facility] pain management Dr. Heath in [place]
-Continue Z2 lidocaine patch 5%( May use own from home), tizanidine, pregabalin, Vicodin 10mg/325mg every 6 hours scheduled
Lidocaine 2.5%/try looking 2.5% 30 g patient applies to posterior knees, hips, lower back and toes alternating 3 times daily as needed(may use own cream)
6. Right lower rib costochondritis
-Tenderness on palpation and reproducible
-apply NSAID cream
7. Positive blood culture
-possible contamination, CONS in one set of blood cx
Obstructive sleep apnea -resolved post gastric bypass/weight loss
Chronic normocytic anemia
Type 2 diabetes mellitus
Hyperlipidemia
History of stroke
Pulmonary nodule
Asthma
Gastroesophageal reflux disease
History of gastric bypass
Hypothyroidism
Anxiety/Depression/Schizoaffective disorder
h/o Diverticulosis
History of vertigo
History of chronic pain with HLA-B 27 gene factor/patient states history of ankylosing spondylosis
osteoporosis
fibromyalgia
RA
Chronic b/l lower extremity edema
Obesity/Hx bariatric surgery�BMI 30
DVT prophylaxis- subq heparin
DNR/DNI
Anticipated Discharge: Today
Subjective/Interval History
-
Date of Service: September 02, 2024
No complaints overnight
Objective Data
-
Vital Signs:
Vital Signs
Temp Pulse Resp BP Pulse Ox
97.6 F 70 16 119/69 93
09/02/24 07:20 09/02/24 09:53 09/02/24 07:56 09/02/24 09:53 09/02/24 09:53
I&O
09/01/24 09/02/24 09/03/24
06:59 06:59 06:59
Intake Total 1039 / 1039
Balance 1039
Review of Systems
-
Respiratory: Reports No Symptoms
Cardiac: Reports No Symptoms
Abdomen/GI: Reports No Symptoms
Physical Exam
-
General: No Apparent Distress
HEENT: Moist Mucous Membranes
Respiratory: Clear to Auscultation; Negative Wheezes
Cardiac: Regular Rhythm and S1/S2
GI: Soft, Nontender, Nondistended and No Hepatosplenomegaly
Musculoskeletal: No Edema
Neuro: Awake, Alert and AO x 3
Psych: Calm
--- NOTE | 2024-09-02 17:38 | W.DCSUMMARY ---
Discharge Summary
Discharge Data
Date of Admission: 08/28/24
Date of Discharge: 09/02/24
-
Pending Results: No
Hospital Course
Discharging Physician : Dr Isai Matias
Disposition : Home
Primary care physician : Torrie Arizmendi MD
Principal Discharge diagnosis :
Left lung infiltrate -pneumonia versus cryptogenic organizing pneumonia
Acute hypoxic respite insufficiency
Right lower rib costochondritis
Chronic Discharge diagnosis :
History of recurrent pneumonia
Chronic obstructive pulmonary disease
Chronic back/knee pain
Obstructive sleep apnea resolved post gastric bypass
Chronic normocytic anemia
Type 2 diabetes mellitus
Hyperlipidemia
History of stroke
Pulmonary nodule
Asthma
Gastroesophageal reflux disease
Hypothyroidism
History of diverticulosis
History of vertigo
History of chronic pain with HLA-B27 gene /questionable ankylosing spondylolysis
Osteoporosis
Fibromyalgia
History of primary arthritis
Hospital Course :
Patient is a 69-year-old female with mentioned past medical history came to ER with new onset of dry cough and right-sided lower rib cage pain. Patient was noted to be hypoxic in ER. Patient has complex history in the past and there was concern of
possible PE, a CT chest PE was done which ruled out any PE although incidentally was noted to having left upper and lower lobe pneumonia. Patient was started on broad-spectrum antibiotic and was admitted to hospital for further care. Pulmonology
was involved in care as patient did not have any further supportive signs of infectious pathology. Pulmonology post evaluation felt patient may have component of inflammatory pneumonia/cryptogenic organizing pneumonia and started on empiric
steroids. Patient had improvement in cough within 72 hours. At this point patient was discharged on short course of oral Augmentin and steroid with patient plan to follow-up with pulmonology in office for further evaluation.
Important imaging findings :
None
Procedure findings :
None
Discharge Plan
-
Patient Disposition: Home (Routine Discharge)
Discharge Diagnosis/Procedures: Left sided pneumonia, Hypoxic respiratory insufficiency
Condition: Fair
Diet: Regular
Activity: As tolerated
Driving Restrictions: As prior to admission
Bathing Restrictions: OK to Shower
Referrals:
Jermaine Bueno MD [Active] - in two to three weeks
(Dr. Szymanski or nurse practitioner
Radiographic follow-up
Consideration towards Biologics, immunoglobulins, chronic low-dose steroids, etc.)
Torrie Arizmendi MD [Family Provider] - in one week
Prescriptions:
New
amoxicillin-pot clavulanate 875-125 mg tablet
1 tab PO BID Qty: 6 0RF
prednisone 10 mg Tablet
See Rx Instructions .ROUTE .COMPLEX Qty: 60 0RF
Rx Instructions:
40 mg daily x3 days, 30 mg daily x3 days,
20 mg daily x3 days, 10 mg daily for maintenance
Continued
famotidine 40 MG tablet
40 mg PO HS
atorvastatin 80 mg Tablet
80 mg PO DAILY
clopidogrel 75 mg Tablet
75 mg PO DAILY
pantoprazole [Protonix] 40 mg Tablet,Delayed Release (Dr/Ec)
40 mg PO BID
benzonatate 200 mg Capsule
200 mg PO TIDPRN PRN (Reason: cough)
donepezil 10 mg Tablet
10 mg PO HS
sennosides-docusate sodium 8.6-50 mg Tablet
3 tab-cap PO HS Qty: 0
levothyroxine 50 mcg Tablet
50 mcg PO DAILY
mirtazapine 45 mg Tablet
45 mg PO HS
valsartan 40 mg Tablet
20 mg PO DAILY
levalbuterol tartrate [Xopenex HFA] 45 mcg/actuation Hfa Aerosol Inhaler
2 inh INHALATION R Q6HPRN PRN (Reason: sob) Qty: 0
ZTlido 1.8 % Adhesive Patch,Medicated
3 patch TOPICAL DAILYPRN PRN (Reason: b/l knee,hip and/or lower back)
Rx Instructions:
UP TO 3 patches a day max on at HS off in am
benztropine 1 mg Tablet
1 mg PO BID@1200,2000
cyclobenzaprine 10 mg Tablet
10 mg PO HS
cyanocobalamin (vitamin B-12) 1,000 mcg Tablet
1,000 mcg PO Q48H
hydrocodone-acetaminophen 10-325 mg Tablet
1 tab PO Q6HPRN PRN (Reason: severe pain)
Patient Comments:
08/28/2024: last filled 08/02/24, 120 tabs for 30 days from [facility]
ergocalciferol (vitamin D2) 1,250 mcg (50,000 unit) Capsule
1,250 mcg PO WE
ondansetron 4 mg Tablet,Disintegrating
4 mg PO BIDPRN PRN (Reason: nausea)
memantine 10 mg tablet
10 mg PO BID
lidocaine-prilocaine 2.5-2.5 % Cream
1 applic TOPICAL Q8HPRN PRN (Reason: breakthrough mild pain )
Rx Instructions:
apply to bilateral knees, bilateral hips and lower back
tizanidine 2 mg tablet
2 mg PO BID
furosemide 40 MG tablet
80 mg PO TUSA
budesonide-formoterol [Symbicort] 160-4.5 mcg/actuation Hfa Aerosol Inhaler
2 inh INHALATION R BID
fluticasone propionate 50 mcg/actuation [place],Suspension
1 spray INTRANASAL BID
cranberry 500 mg Capsule
4,200 mg PO BID
pregabalin [Lyrica] 25 mg Capsule
25 mg PO TIDPRN PRN (Reason: neuropathy)
sucralfate 1 gram tablet
1 g PO BIDPRN PRN (Reason: stomach ulcer)
potassium chloride [Klor-Con M20] 20 mEq Tablet,Er Particles/Crystals
20 meq PO BID
benztropine 2 mg Tablet
2 mg PO DAILY
calcium-vitamin D3-vitamin K 500 mg-100 unit -40 mcg Tablet,Chewable
1 tab PO DAILY
furosemide [Lasix] 40 mg Tablet
40 mg PO SUMOWETHFR
alprazolam 0.5 mg tablet
0.5 mg PO QIDPRN PRN (Reason: Mental Health/Anxiety)
Patient Comments:
08/28/2024: last filled 08/07/24, 120 tabs for 30 days from [facility]
meclizine 25 mg tablet
25 mg PO TID
azithromycin 250 mg tablet
250 mg PO Q48H
tiotropium bromide [Spiriva with HandiHaler] 18 mcg capsule, w/inhalation device
1 cap inhalation R DAILY
Discharge Orders:
Discharge Patient (As Directed); Ordered 09/02/24
Ordered By: Isai Matias
Discharge Date and Time
Discharge Date/Time: 09/02/24 15:35
Print Language: KYRGYZ
== END 2024-09-02 15:35 | disposition home or self-care (01) | DRG 190 ==
LOC: 4 EAST ACU 22:22
PROVIDERS: Clinical Nurse Specialist Family Health; Nurse Practitioner; ADMITTING PHYSICIAN Internal Medicine; ATTENDING PHYSICIAN Hospitalist; CONSULT PHYSICIAN Internal Medicine Critical Care Medicine; EMERGENCY PHYSICIAN Emergency Medicine; FAMILY PHYSICIAN Student in an Organized Health Care Education/Training Program
DX: J44.0 Chronic obstructive pulmonary disease with (acute) lower respiratory infection (principal); J18.9 Pneumonia, unspecified organism; I10 Essential (primary) hypertension; Z66 Do not resuscitate; E78.00 Pure hypercholesterolemia, unspecified; E03.9 Hypothyroidism, unspecified; F32.A Depression, unspecified; F41.9 Anxiety disorder, unspecified; F25.9 Schizoaffective disorder, unspecified; E87.6 Hypokalemia; E66.9 Obesity, unspecified; K21.9 Gastro-esophageal reflux disease without esophagitis; I95.9 Hypotension, unspecified; R09.02 Hypoxemia; M81.0 Age-related osteoporosis without current pathological fracture; M79.7 Fibromyalgia; D64.9 Anemia, unspecified; M94.0 Chondrocostal junction syndrome [Tietze]; R06.89 Other abnormalities of breathing; E11.65 Type 2 diabetes mellitus with hyperglycemia; Z86.73 Personal history of transient ischemic attack (TIA), and cerebral infarction without residual deficits; Z87.01 Personal history of pneumonia (recurrent); Z96.651 Presence of right artificial knee joint; Z98.84 Bariatric surgery status; Z82.5 Family history of asthma and other chronic lower respiratory diseases; Z79.899 Other long term (current) drug therapy; Z88.8 Allergy status to other drugs, medicaments and biological substances; Z79.890 Hormone replacement therapy; Z79.02 Long term (current) use of antithrombotics/antiplatelets; Z79.51 Long term (current) use of inhaled steroids; Z20.822 Contact with and (suspected) exposure to COVID-19; Z68.30 Body mass index [BMI] 30.0-30.9, adult
CPT/HCPCS: 71046; 71275; 80053; 82962; 83036; 83605; 84145; 84484; 85025; 85652; 87040; 87150; 87205; 87449; 87502; 87811; 87899; 93005; 94640; 94669; 96365; 96375; 97116; 97161; 97166; 97530; 99285; Q9967

== ENCOUNTER 2024-10-22 13:59 | Inpatient (IN) | payer OTHER, SELFPAY ==
[2024-10-22] VITALS (12 sets, daily range): BP systolic 105–154; BP diastolic 51–69
[2024-10-22 08:25] LABS: Hematocrit 35.8 % (37.0-47.0); Hemoglobin 12.2 g/dL (12.0-16.0); Mean Corp Hgb Conc. 34.1 g/dL (33.0-37.0); Mean Corpuscular Hgb 29.7 pg (27.0-31.0); Mean Corpuscular Volume 87.1 fL (81.0-99.0); Mean Platelet Volume 8.8 fL (7.4-10.4); Platelet Count 230 10^3/uL (130-400); Red Blood Cell Count 4.11 10^6/uL (4.20-5.40); Red Cell Dist. Width 14.2 % (11.5-14.5); White Blood Cell Count 14.7 10^3/uL (4.8-10.8)
[2024-10-22 08:46] LABS: ALT (SGPT) 25 U/L (0-35); AST (SGOT) 31 U/L (14-36); Albumin 3.3 g/dl (3.5-5.0); Alkaline Phosphatase 82 U/L (38-126); Blood Urea Nitrogen 13 mg/dl (7-17); Calcium 8.1 mg/dl (8.4-10.2); Carbon Dioxide 25 mmol/L (22-30); Chloride 104 mmol/L (98-107); Glucose 146 mg/dl (70-99); Lipase 29 U/L (23-300); Potassium 3.3 mmol/L (3.5-5.1); Sodium 137 mmol/L (135-145); Total Bilirubin 1.7 mg/dl (0.2-1.3); Total Protein 5.8 g/dl (6.3-8.2); eGFR > 60.00
[2024-10-22 09:05] LABS: Band Neutrophils 23 % (0-3); Lymphocytes 6 % (20-51); Monocytes 3 % (2-9); Myelocytes 2 % (-); Segmented Neutrophils 66 % (42-75)
[2024-10-22 09:06] LABS: Normal RBC Morphology Yes; Platelets Checked Yes; Total Cells Counted 100
--- NOTE | 2024-10-22 09:13 | ED.GENMED ---
History of Present Illness
General
Chief Complaint: Abdominal Symptoms
Time Seen by Provider: 10/22/24 08:56
History of Present Illness
History of Present Illness:
69-year-old female presents to the emergency department for evaluation of sudden onset of nausea vomiting and diarrhea beginning last night. Unable to tolerate p.o. fluids. Reports high-volume diarrhea, nonbloody. No ill contacts. She does note
that she is on chronic every other day antibiotics since August due to recurrent pneumonia
Past History
Past History
ED Past Medical History: Asthma, CVA, HTN, Hypercholesterolemia, NIDDM, [place] and Psychiatric
ED Past Surgical History: Cholecystectomy, Gynecological (Hysterectomy), Orthopedic (right knee replacement) and Other (Gastric bypass)
Social History
Tobacco: Non-smoker
Alcohol: None
Drug: None
Personal:
Living: alone
Employment: Disabled
Family History
Family History: Asthma
Review of Systems
Review of Systems
Allergies reviewed?: Yes
All Other Systems: ROS reviewed and negative except as documented in HPI and ROS
Phy Exam
Physical Exam
Physical Exam:
GEN: Well appearing, NAD, WDWN
HEENT: Oral mucosa moist, no scleral icterus
Cardiac: Regular rate
Lung: No respiratory distress, no tachypnea
MSK: No gross deformity or injuries
Skin: Good color, no pallor or jaundice, no rashes
Neuro: AO x3, moves all extremities freely
Psych: Calm, cooperative
Course
Orders/Labs/Results
Orders:
Orders
10/22/24 08:15
Complete Blood Count/With Diff Urgent
Comprehensive Metabolic Panel Urgent
Lipase Urgent
Manual Differential Urgent
10/22/24 09:12
0.9% Sodium Chloride 1000 ml [Nss] 1,000 ml IV BOLUS
Ondansetron Injectable [Zofran] 4 mg IV NOW STA
10/22/24 09:21
CR Chest Portable - 1 View Urgent
Comment:
Reason For Exam: fever/hypoxic
Reason Study Needs to be Portable: Other
10/22/24 10:11
C DIFF [C difficile Antigen & Toxins] Urgent
ELINOR Source: Feces/Stool
Specimen Description:
Date Specimen was Collected: 10/22/24
Time Specimen was Collected: 10:09
Stool Culture Urgent
ELINOR Source: Feces/Stool
Specimen Description:
Date Specimen was Collected: 10/22/24
Time Specimen was Collected: 10:09
10/22/24 10:43
Chest/Abd/Pelvis w Contrast CT [CT Chest/abd/pel W Iv Cont] Urgent
Comment:
Reason For Exam: hypoxia, N/V/D, new PNA on CXR
10/22/24 12:45
Dexamethasone Sod Phosphate [Decadron] 10 mg IV NOW STA
LevoFLOXacin 750 MG/150 ML [Levaquin] 750 mg in 150 ml IV NOW
10/22/24 13:44
Admit/Transfer Patient As Directed
Co-Sign Provider:
Level of Care: Inpatient admission
Assign to:: Telemetry
Physician / Group: Htay
Diagnosis: Sepsis, Gastroeneteritis
Reason for Telemetry: Arrhythmia
Date to Stop Telemetry: 10/25/24
Time to Stop Telemetry: 11:00
Reason for Hospitalization: IVFs
Expected length of stay greater than two midnights?: Yes
ELOS- Estimated Length of Stay in days: 3
I certify the patient meets the requirements for IP care: Yes
PRN Pain Medication Management As Directed
May give lesser potent ordered pain med per pt: Yes
preference::
Protocol:: Medication orders for pain may be administered in a
manner that supports deferring to patient preference
when the pt is:
- Requesting an ordered lesser potent pain medication.
Least to most potent pain medications are defined
as: acetaminophen < NSAID < tramadol < opioids
(morphine, oxycodone, hydromorphone).
- Requesting a lesser dose of the same medication IF
ORDERED.
- Requesting a less intrusive route of administration
if both routes are prescribed by the provider (PO <
IV).
10/22/24 13:46
Code Status As Directed
Resuscitation Status: Do not resuscitate
Reached after discussion with pt or family/Healthcare POA: Yes
Potassium Chloride 10% Elixir [KCl Elixir] 40 meq PO NOW STA
DNR Bracelet Application ONCE
10/22/24 13:51
Lactic Acid Q4H
Comment: CANCEL 2nd LACTIC ACID IF 1st LACTIC ACID IS LESS THAN 2
Procalcitonin Urgent
PCT Algorithmm Indication: Respiratory
Blood Culture Q30M
ELINOR Source: Blood/Venous
Specimen Description:
Blood Culture Q30M
ELINOR Source: Blood/Venous
Specimen Description:
10/22/24 17:00
Lactic Acid Q4H
Comment: CANCEL 2nd LACTIC ACID IF 1st LACTIC ACID IS LESS THAN 2
10/25/24 11:00
DC Protocol for Telemetry ONCE
Abnormal Lab Results
10/22/24 10/22/24
08:15 13:51
WBC 14.7 H 10^3/uL
(4.8-10.8)
RBC 4.11 L 10^6/uL
(4.20-5.40)
Hct 35.8 L %
(37.0-47.0)
Abs Neuts (Manual) 13.0 H 10^3/uL
(1.4-6.5)
Band Neutrophils 23 H %
(0-3)
Lymphocytes (Manual) 6 L %
(20-51)
Potassium 3.3 L mmol/L
(3.5-5.1)
Glucose 146 H mg/dl
(70-99)
Calcium 8.1 L mg/dl
(8.4-10.2)
Total Bilirubin 1.7 H mg/dl
(0.2-1.3)
Total Protein 5.8 L g/dl
(6.3-8.2)
Albumin 3.3 L g/dl
(3.5-5.0)
Procalcitonin 5.47 H* ng/ml
(0.0-0.25)
10/22/24 08:15
10/22/24 08:15
Vital Signs
Initial and Last Documented VS:
Initial Vital Signs
Temp Pulse Resp BP Pulse Ox
100.7 F H 80 18 123/61 90
10/22/24 08:08 10/22/24 08:08 10/22/24 08:08 10/22/24 08:08 10/22/24 08:08
Last Documented Vital Signs
Temp Pulse Resp BP Pulse Ox
100.7 F H 80 18 123/61 92
10/22/24 08:08 10/22/24 08:08 10/22/24 08:08 10/22/24 08:08 10/22/24 09:43
MDM/Problems Addressed
MDM/Problems Addressed:
Patient's nausea vomiting and diarrhea are most likely due to norovirus, she is C. difficile negative. However she was noted to be hypoxic on arrival and imaging is suspicious for worsening organizing pneumonia. Will cover with broad-spectrum IV
antibiotics as well as steroids and admit to the hospital for further management
*Critical Care Note
Total Time (30-74mins, 75-104mins- exclusive of procedures): Not Applicable
ED Attending Note
-
Portions of this chart may have been created with voice recognition software.� Occasional wrong word or��sound alike� substitutions may have occurred due to the inherent limitations of voice recognition software.
Discharge Plan
Departure
Patient Disposition: Admit
Date of Disposition: 10/22/24
Time of Disposition: 12:48
Presentation/result/management discussed w/ accepting MD/DO: Hospitalist
Discharge Problem:
Enterocolitis, Multifocal pneumonia
Interventions
Interventions:
*Risk Screen - Suicide Last Done: 10/22/24 08:08
*General Assessment Last Done: 10/22/24 08:08
*Neglect/Abuse Screening Last Done: 10/22/24 08:08
ED- Fall Risk Assessment Last Done: 10/22/24 09:43
*ED COVID-19 Vaccine History Last Done: 10/22/24 08:08
QU-Snbgww-Nkcjxytnfg Assessment Last Done: 10/22/24 09:12
[2024-10-22] MEDS: ZOFRAN 4 MG IV (09:50)
[2024-10-22] MEDS: NSS 1000 IV ×2 (10:15→20:33)
--- NOTE | 2024-10-22 12:52 | HPS.HSE ---
Addendum entered and electronically signed by Martha Zuñiga PA-C 10/22/24 17:05:
Update:
Procalcitonin Elevated at 5.47 - Start Unasyn to cover for pneumonia, possibly aspiration related
Original Note:
Family Physician
-
Family Physician: Torrie Arizmendi MD
Chief Complaint
-
Vomiting and Diarrhea
History of Present Illness
Patient is a 69 y/o female past medical history of CVA, HTN, DM, Bipolar Disorder, Chronic Pain and Recurrent Pneumonia who presents with vomiting and diarrhea. Patient reports vomiting and diarrhea started around midnight last night. She describes
high volume diarrhea and inability to tolerate oral fluids. She admits to mild abdominal discomfort. Upon arrival to the ED she was found to be febrile with temp 100.7F. She denies sick contacts, recent travel or usual food intake, but is maintained
on chronic antibiotics for recurrent pneumonia.
Medical History
Past Medical History
Past Medical History: Reports Other
Additional Past Medical History:
CVA/TIA
Essential Hypertension
Hyperlipidemia
Diabetes Mellitus, Type II
Asthma
Hypothyroidism
Bipolar Disorder / Schizoaffective Disorder
Dementia
Chronic Pain Syndrome
Fibromyalgia
Ankylosing Spondylitis
GERD
Chronic Lower Extremity Lymphedema
Obstructive Sleep Apnea
Past Surgical History: Reports Other
Additional Past Surgical History:
Cholecystectomy
Hysterectomy
Tonsillectomy
Gastric Bypass
Right Knee Surgery
Social History
Tobacco: Non-smoker
Alcohol: None
Drug: None
Family History
Family History: Not pertinent
Allergies / Home Medications
Allergies reflects when Allergies were last updated in [facility].
Home Medications with original date entered in [facility]
Allergy/Medication List:
Allergies
Allergy/AdvReac Type Severity Reaction Status Date / Time
celecoxib [From Celebrex] Allergy Unknown Verified 10/22/24 08:14
hydrochlorothiazide Allergy Unknown Verified 10/22/24 08:14
NSAIDS (Non-Steroidal Allergy Gastric Verified 10/22/24 08:14
Anti-Inflamma Bypass
pregabalin [From Lyrica] Allergy Unknown Verified 10/22/24 08:14
promethazine Allergy Unknown Verified 10/22/24 08:14
zolpidem [From Ambien] Allergy Unknown Verified 10/22/24 08:14
Home Medications
famotidine 40 mg tablet 40 mg PO HS Gastrointestinal Issue 05/19/15
atorvastatin 80 mg tablet 80 mg PO DAILY High Cholesterol 01/10/23
benzonatate 200 mg capsule 200 mg PO TIDPRN PRN cough 01/10/23
clopidogrel 75 mg tablet 75 mg PO DAILY Blood Clot Prevention/Tx 01/10/23
donepezil 10 mg tablet 10 mg PO HS Mental Health/Anxiety 01/10/23
levalbuterol tartrate 45 mcg/actuation aerosol inhaler (Xopenex HFA) 2 inh inhalation R Q6HPRN PRN sob ##0 01/10/23
levothyroxine 50 mcg tablet 50 mcg PO DAILY Thyroid 01/10/23
lidocaine 1.8 % topical patch (ZTlido) 3 patch topical DAILYPRN PRN b/l knee,hip and/or lower back 01/10/23
mirtazapine 45 mg tablet 45 mg PO HS Mental Health/Anxiety 01/10/23
pantoprazole 40 mg tablet,delayed release (Protonix) 40 mg PO BID Gastrointestinal Issue 01/10/23
valsartan 40 mg tablet 20 mg PO DAILY Blood Pressure 01/10/23
cyanocobalamin (vitamin B-12) 1,000 mcg tablet 1,000 mcg PO Q48H Supplement 05/14/23
cyclobenzaprine 10 mg tablet 10 mg PO HS Muscle Spasms 05/14/23
ergocalciferol (vitamin D2) 1,250 mcg (50,000 unit) capsule 1,250 mcg PO WE Supplement 05/14/23
hydrocodone 10 mg-acetaminophen 325 mg tablet 1 tab PO QID 05/14/23
lidocaine-prilocaine 2.5 %-2.5 % topical cream 1 applic topical Q8HPRN PRN breakthrough mild pain 05/14/23
memantine 10 mg tablet 10 mg PO BID Neurological Condition 05/14/23
ondansetron 4 mg disintegrating tablet 4 mg PO BIDPRN PRN nausea 05/14/23
furosemide 40 mg tablet 80 mg PO TUSA Fluid Retention/Swelling 07/13/23
tizanidine 2 mg tablet 2 mg PO BID Muscle Spasms 07/13/23
budesonide-formoterol HFA 160 mcg-4.5 mcg/actuation aerosol inhaler (Symbicort) 2 inh inhalation R BID Lung/Breathing Issues 10/08/23
cranberry 500 mg capsule 4,200 mg PO BID Supplement 03/22/24
pregabalin 25 mg capsule (Lyrica) 25 mg PO TIDPRN PRN neuropathy 03/22/24
potassium chloride 20 mEq tablet,extended release(part/cryst) (Klor-Con M) 20 meq PO BID Electrolyte Repletion 07/07/24
alprazolam 0.5 mg tablet 0.5 mg PO QIDPRN PRN anxiety 07/23/24
furosemide 40 mg tablet (Lasix) 40 mg PO SUMOWETHFR Fluid Retention/Swelling 07/23/24
meclizine 25 mg tablet 25 mg PO TID 08/28/24
tiotropium bromide 18 mcg capsule with inhalation device (Spiriva with HandiHaler) 1 cap inhalation R DAILY 08/28/24
azithromycin 250 mg tablet 250 mg PO Q48H 10/22/24
benztropine 2 mg tablet 2 mg PO BID 10/22/24
Review of Systems
-
A 12 point ROS was completed and negative except as noted: Yes
Constitutional: Reports Fever
Respiratory: Denies Cough or Trouble Breathing
Cardiac: Denies Chest Pain or Palpitations
: Reports See HPI
Physical Exam
Vital Signs
Vital Signs
Temp Pulse Resp BP Pulse Ox
100.7 F H 80 18 123/61 92
10/22/24 08:08 10/22/24 08:08 10/22/24 08:08 10/22/24 08:08 10/22/24 09:43
Physical Exam
General: Comfortable and Conversant
HEENT: Anicteric and Other (Mucous Membranes are Dry)
Respiratory: Clear and Non Labored Respirations
Cardiac: S1/S2 and Regular Rhythm
GI: Soft and Tender (Mild left sided tenderness without rebound or guarding)
Rectal: Deferred by Provider
Musculoskeletal: No Clubbing and No Cyanosis
Skin: Warm and Dry
Neuro: Awake, Alert and Oriented
Psych: Calm
Laboratory Results
-
10/22/24 08:15
10/22/24 08:15
Laboratory Results
Total Bilirubin 1.7 mg/dl (0.2-1.3) H 10/22/24 08:15
AST 31 U/L (14-36) 10/22/24 08:15
ALT 25 U/L (0-35) 10/22/24 08:15
Alkaline Phosphatase 82 U/L (38-126) 10/22/24 08:15
Lipase 29 U/L (23-300) 10/22/24 08:15
Chest X-Ray:
Left basilar pneumonia
Chest/Abdomen/Pelvis CT:
1. Multifocal pneumonia in both lungs, left greater than right.
2. CT findings suspicious for a mild enterocolitis, likely inflammatory or infectious.
Data Reviewed
-
Diagnostic Radiology: Report Reviewed by me
CT Scan: Report Reviewed by me
Lab Data: Labs Reviewed by me
Impression/Plan
-
Sepsis secondary to Gastroenteritis presumed norovirus
-Continue supportive care
-Continue IVFs
-Continue anti-emetics
-Allow clears liquids as tolerated
Recurrent Pneumonia
-Doubt acute bacterial pneumonia therefore will hold on antibiotics
-Check Procalcitonin
-Continue usual vest therapy
-Continue azithromycin as prior to admission
-Consult Pulmonary
Hx CVA/TIA
-Continue Plavix
Essential Hypertension
-Continue valsartan withhold parameters
Hyperlipidemia
-Continue atorvastatin
Diabetes Mellitus, Type II
-Monitor sugars and continue coverage insulin
Asthma, no acute exacerbation
-Continue Symbicort and Spiriva
Hypothyroidism
-Continue levothyroxine
Bipolar Disorder / Schizoaffective Disorder
-Continue alprazolam, mirtazapine
Dementia
-Continue Aricept and Namenda
Chronic Pain Syndrome with Opioid Dependence secondary to Fibromyalgia and Ankylosing Spondylitis
-Continue hydrocodone/acetaminophen
-Continue cyclobenzaprine, tizanidine and lidocaine cream/patch
GERD
-Continue Pepcid and Protonix
Chronic Lower Extremity Lymphedema
-Hold Lasix in setting of GI Illness
Obesity s/p Bariatric Surgery
DVT Proph: Lovenox
Code Status: DNR/DNI
--- NOTE | 2024-10-22 13:36 | W.PN.UPDATE ---
Addendum entered and electronically signed by Ari Quan MD 10/22/24 18:31:
Correction:
Pulmonology evaluated and patient started on oral prednisone.
-Change to Unasyn <del>and</del> <del>doxycycline</del> for now
Original Note:
Update Note
Progress Note Update
This note serves as an addendum to the H&P by traffic coordinator SERVANDO
Myra DIETERICK
HPI
69F Non smoker, disabled HX recurrent PNA ( Bacterial vs. cryptogenic organizing pneumonia) HX acute hypoxia, asthma, not on on home O2
HX CVA, HLD, NIDDM, Post gastric bypass surgery seen at ER;
- for evaluation of sudden onset of nausea vomiting and diarrhea beginning last night.
- Unable to tolerate p.o. fluids.
- Reports high-volume diarrhea, nonbloody.
- No ill contacts.
Vital Signs
Temp Pulse Resp BP Pulse Ox
100.7 F H 80 18 123/61 92
10/22/24 08:08 10/22/24 08:08 10/22/24 08:08 10/22/24 08:08 10/22/24 09:43
PE
Gen: NAD
HEENT: anicteric
Neck: supple
Lungs: No respiratory distress, no tachypnea, not wearing O2
Cor:RRR S1 S2
Abdomen:
LABORER SAWMILL: awake alert
MS: no edema
Psych: Calm
Abnormal Lab Results
10/22/24
08:15
WBC 14.7 H
RBC 4.11 L
Hct 35.8 L
Abs Neuts (Manual) 13.0 H
Band Neutrophils 23 H
Lymphocytes (Manual) 6 L
Potassium 3.3 L
Glucose 146 H
Calcium 8.1 L
Total Bilirubin 1.7 H
Total Protein 5.8 L
Albumin 3.3 L
10/22/24 NEG C Diff
CT Chest/abd/pel W Iv Cont
1. Multifocal pneumonia in both lungs, left greater than right.
2. CT findings suspicious for a mild enterocolitis, likely inflammatory or infectious.
Last hospitalist admission:
DC DXs: Date of Admission: 08/28/24 - 09/02/24
Principal Discharge diagnosis :
Left lung infiltrate -pneumonia versus cryptogenic organizing pneumonia
Acute hypoxic respite insufficiency
Right lower rib costochondritis
ASSESSMENT & PLAN
Sepsis due to acute enterocolitis suspect virus likely Noro virus
Source of tender abdomen + fever+ leucocytosis with Lt shift are likely due to acute enterocolitis
CT AP confirmed mild acute enterocolitis, likely inflammatory or infectious
Mild hypokalemia due to GI loss from N/V/ non bloody diarrhea
- NEG C Diff toxin and Ag
- Supportive care; IV NS, K correction PRN
- No indication for ABx
HX multifocal pneumonia in both lungs, left greater than right.
- Denied cough,
-
- Marginal hypoxia but not on O2 Hypoxia
- Received first dose of IV LVQ
- pending PCT
-CT chest showing severe airspace consolidation in the left lung
-No associated significant leukocytosis/patient afebrile
-Flu/Covid neg. Strep and legionella.
-Unable to be sputum culture is dry cough only
-Patient have problem with recurrent pneumonia and in past there was question of possible cryptogenic pneumonia versus other autoimmune/inflammatory process playing a role
-Pulmonology evaluated and patient started on oral prednisone.
-Change to Unasyn and doxycycline for now
Borderline hypoxic respite insufficiency
-Continue monitoring and provide oxygen nasal cannula if needed
HX COPD
- No signs of exacerbation
- Continue Xopenex/Symbicort/Spiriva
Chronic back/knee pain/arthritis f/u at pain clinic
- F/U by rheumatology - 15 then referred to pain management the last 8 years
- F/U with [facility] pain management Dr. Heath in [place]
- Continue Z2 lidocaine patch 5%( May use own from home), tizanidine, pregabalin, Vicodin 10mg/325mg every 6 hours scheduled
- Lidocaine 2.5%/try looking 2.5% 30 g patient applies to posterior knees, hips, lower back and toes alternating 3 times daily as needed(may use own cream)
HX Right lower rib costochondritis
-Tenderness on palpation and reproducible
-apply NSAID cream
Chr conditions
Obstructive sleep apnea -resolved post gastric bypass/weight loss
Chronic normocytic anemia
Type 2 diabetes mellitus
Hyperlipidemia
History of stroke
Pulmonary nodule
Asthma
Gastroesophageal reflux disease
History of gastric bypass
Hypothyroidism
Anxiety/Depression/Schizoaffective disorder
h/o Diverticulosis
History of vertigo
History of chronic pain with HLA-B 27 gene factor/patient states history of ankylosing spondylosis
osteoporosis
fibromyalgia
RA
Chronic b/l lower extremity edema
Obesity/Hx bariatric surgery�BMI 30
DVT PPX; LMWH
DNR per patient
IP TLM
[2024-10-22] MEDS: DECADRON 10 MG IV (13:48)
[2024-10-22 14:56] LABS: Lactic Acid 1.3 mmol/L (0.7-2.0)
[2024-10-22] MEDS: KCL ELIXIR 40 MEQ PO (15:16)
[2024-10-22 15:19] LABS: Procalcitonin 5.47 ng/ml (0.0-0.25)
[2024-10-22] MEDS: UNASYN IV (16:43)
[2024-10-22] MEDS: TYLENOL 650 MG PO (17:13)
--- NOTE | 2024-10-22 17:52 | EDRN ---
Patient taken to room 328-1 on stretcher on monitor by advanced manufacturing technician.
[2024-10-22] MEDS: SYMBICORT 160/4.5 MCG INHALER 2 PUFF INH (19:55)
[2024-10-22] MEDS: NOVOLOG FLEXPEN-LOW RESISTANCE SC (20:33)
[2024-10-22] MEDS: ANTIVERT 25 MG PO (20:36)
[2024-10-22] MEDS: LOVENOX 40 MG SC (20:36)
[2024-10-22] MEDS: ZITHROMAX 250 MG PO (20:36)
[2024-10-22] MEDS: DIOVAN 20 MG PO (20:37)
[2024-10-22] MEDS: LIPITOR 80 MG PO (20:37)
[2024-10-22] MEDS: PLAVIX 75 MG PO (20:37)
[2024-10-22] MEDS: PROTONIX 40 MG PO (20:38)
[2024-10-22] MEDS: NAMENDA 10 MG PO (20:38)
[2024-10-22] MEDS: COGENTIN 2 MG PO (20:38)
[2024-10-22] MEDS: KCL 20 MEQ PO (20:38)
[2024-10-22] MEDS: ZANAFLEX 2 MG PO (20:38)
[2024-10-22] MEDS: ARICEPT 10 MG PO (21:55)
[2024-10-22] MEDS: PEPCID 40 MG PO (21:55)
[2024-10-22] MEDS: REMERON 45 MG PO (21:55)
[2024-10-22] MEDS: ROXICODONE 5 MG PO (21:55)
[2024-10-22] MEDS: ANTIVERT PO (21:55)
[2024-10-22] MEDS: FLEXERIL 10 MG PO (21:55)
[2024-10-22] MEDS: NORCO 5/325 1 TABLET PO (21:55)
[2024-10-22 23:51] LABS: Glucose - Point of Care 225 mg/dl (70-99)
[2024-10-23] MEDS: UNASYN IV ×5 (00:57→23:24)
[2024-10-23 03:21] VITALS: BP 113/84
[2024-10-23] MEDS: XANAX 0.5 MG PO (04:42)
--- NOTE | 2024-10-23 05:56 | W.PN.HOSP.TC ---
Today's Communication/Plan
-
cont abx
IVF support
pain control
glycemic control
VEST therapy as per pulm
diet advanced to low residue
Assessment / Plan
Assessment / Plan
Physical Exam
General: Comfortable and Conversant
HEENT: Anicteric moist mucous membranes
Respiratory: Clear and Non Labored Respirations
Cardiac: S1/S2 and Regular Rhythm
GI: Soft and nontender bowel sounds present
Musculoskeletal: No Clubbing and No Cyanosis
Skin: Warm and Dry
Neuro: Awake, Alert and Oriented
Psych: Calm
69F CVA, HTN, DM, Bipolar Disorder, Chronic Pain and Recurrent Pneumonia p/w vomiting and diarrhea. Reported high volume diarrhea and inability to tolerate oral fluids. Upon arrival to the ED she was found to be febrile with temp 100.7F. Denied
sick contacts, recent travel or usual food intake, but is maintained on chronic antibiotics for recurrent pneumonia.
Sepsis secondary to Viral Gastroenteritis
-Norovirus CDiff neg
-Continue supportive care
-Continue IVFs
-Continue anti-emetics
-clear liquid advanced to Low residue
Associate Multifocal PNA
Recurrent Pneumonia
-elevated Procal
-Continue usual vest therapy
-Continue azithromycin as prior to admission
-Consult Pulmonary appreciated
-cont empiric Unasyn
Hx CVA/TIA
-Continue Plavix
Essential Hypertension
-Continue valsartan withhold parameters
Hyperlipidemia
-Continue atorvastatin
Diabetes Mellitus, Type II
-Monitor sugars and continue coverage insulin
Asthma, no acute exacerbation
-Continue Symbicort and Spiriva
Hypothyroidism
-Continue levothyroxine
Bipolar Disorder / Schizoaffective Disorder
-Continue alprazolam, mirtazapine
Dementia
-Continue Aricept and Namenda
Chronic Pain Syndrome with Opioid Dependence secondary to Fibromyalgia and Ankylosing Spondylitis
-Continue hydrocodone/acetaminophen
-Continue cyclobenzaprine, tizanidine and lidocaine cream/patch
GERD
-Continue Pepcid and Protonix
Chronic Lower Extremity Lymphedema
-Hold Lasix in setting of GI Illness
Obesity s/p Bariatric Surgery
DVT Proph: Lovenox
Code Status: DNR/DNI
I spent a total of 50 minutes with the patient or on the floor. More than 50% of this time involved counseling and coordination of care.
Anticipated Discharge: 24 - 48 hours
Subjective/Interval History
-
Date of Service: October 23, 2024
No acute distress sitting up comfortably in bed. Reports overall improvement in symptoms.
Objective Data
-
Labs:
Laboratory Results
10/23/24
06:00
WBC Pending
Hgb Pending
Hct Pending
Plt Count Pending
Sodium Pending
Potassium Pending
Chloride Pending
Carbon Dioxide Pending
BUN Pending
Creatinine Pending
Glucose Pending
Calcium Pending
Total Bilirubin Pending
AST Pending
ALT Pending
Alkaline Phosphatase Pending
Vital Signs:
Vital Signs
Temp Pulse Resp BP Pulse Ox
98.9 F 86 16 113/84 95
10/23/24 03:21 10/23/24 03:21 10/23/24 03:21 10/23/24 03:21 10/23/24 03:21
[2024-10-23 06:00] VITALS: BMI 31.1
[2024-10-23 07:15] LABS: ALT (SGPT) 20 U/L (0-35); AST (SGOT) 21 U/L (14-36); Albumin 2.8 g/dl (3.5-5.0); Alkaline Phosphatase 84 U/L (38-126); Blood Urea Nitrogen 10 mg/dl (7-17); Calcium 7.6 mg/dl (8.4-10.2); Carbon Dioxide 22 mmol/L (22-30); Chloride 107 mmol/L (98-107); Estimated Creatinine Clearance 105 ml/min; Glucose 174 mg/dl (70-99); Potassium 3.8 mmol/L (3.5-5.1); Sodium 138 mmol/L (135-145); Total Protein 5.1 g/dl (6.3-8.2); eGFR > 60.00
[2024-10-23 07:28] LABS: Hematocrit 30.6 % (37.0-47.0); Hemoglobin 10.2 g/dL (12.0-16.0); Mean Corp Hgb Conc. 33.3 g/dL (33.0-37.0); Mean Corpuscular Hgb 29.8 pg (27.0-31.0); Mean Corpuscular Volume 89.5 fL (81.0-99.0); Mean Platelet Volume 9.5 fL (7.4-10.4); Platelet Count 182 10^3/uL (130-400); Red Blood Cell Count 3.42 10^6/uL (4.20-5.40); Red Cell Dist. Width 13.9 % (11.5-14.5); White Blood Cell Count 10.8 10^3/uL (4.8-10.8)
[2024-10-23 07:30] VITALS: BP 131/63
[2024-10-23] MEDS: SPIRIVA RESPIMAT 2.5 MCG INH ×2 (07:44→08:02)
[2024-10-23] MEDS: SYMBICORT 160/4.5 MCG INHALER INH ×2 (07:44→08:01)
[2024-10-23 08:15] LABS: Glucose - Point of Care 152 mg/dl (70-99)
[2024-10-23] MEDS: SYNTHROID 50 MCG PO (08:27)
[2024-10-23] MEDS: ZANAFLEX 2 MG PO ×2 (08:28→19:52)
[2024-10-23] MEDS: NAMENDA 10 MG PO ×2 (08:28→19:53)
[2024-10-23] MEDS: DIOVAN 20 MG PO (08:28)
[2024-10-23] MEDS: KCL 20 MEQ PO ×2 (08:28→19:38)
[2024-10-23] MEDS: PLAVIX 75 MG PO (08:28)
[2024-10-23] MEDS: NORCO 5/325 1 TABLET PO ×4 (08:28→21:27)
[2024-10-23] MEDS: ROXICODONE 5 MG PO ×4 (08:28→21:26)
[2024-10-23] MEDS: PROTONIX 40 MG PO ×2 (08:28→19:38)
[2024-10-23] MEDS: COGENTIN 2 MG PO ×2 (08:29→19:52)
[2024-10-23] MEDS: ANTIVERT 25 MG PO ×3 (08:29→21:27)
[2024-10-23] MEDS: LIPITOR 80 MG PO (08:29)
[2024-10-23] MEDS: NOVOLOG FLEXPEN-LOW RESISTANCE 1 UNITS SC ×2 (08:40→17:28)
[2024-10-23 11:03] LABS: Glycohemoglobin (HgbA1c) 6.1 % (4.0-5.6)
--- NOTE | 2024-10-23 11:25 | CM ---
Patient seen at bedside. Patient with consult for advance directives but patient does have an advance directive and does not want additional information at this time. Patient stated that she lives with family in a 2 story home, and she has "Jennifer"Hanny as her PCP. Patient also uses [facility] and has been at [facility] previously. Patient indicated that she does not have any need for DME although she has a walker and a wheelchair. Patient does drive and plans to go back home
with no needs. Patient was interested however, if physicians recommended [facility] in possible referrals. CM will continue to follow for discharge planning needs.
Plan; home with VN vs home with no needs.
[2024-10-23 11:55] VITALS: BP 109/57
[2024-10-23 12:29] LABS: Glucose - Point of Care 251 mg/dl (70-99)
[2024-10-23] MEDS: NSS 1000 IV ×2 (12:44→23:23)
[2024-10-23] MEDS: NOVOLOG FLEXPEN-LOW RESISTANCE 3 UNITS SC (12:44)
--- NOTE | 2024-10-23 13:34 | CON.PUL ---
Consultation
Consultation Request
Date/Time Consultation Requested: 10/23/24-8 AM
Date/Time Consultation Performed: , 10/23/24-8:30 AM
Requesting Provider: hospitalist
Performing Provider: , Dr. Tse
Reason for Consultation: , shortness of breath
Medical History
-
Chief Complaint: , shortness of breath
History of Present Illness:
69-year-old with a history of asthma followed by Dr. Szymanski, suspected silent aspiration, obstructive sleep apnea, hypertension, hyperlipidemia, diabetes, CVA, cognitive impairment as well as anxiety/depression/schizoaffective disorder who
presented with nonproductive cough, shortness of breath after recent hospitalization for community-acquired pneumonia 07/08/2024 and then readmitted with chest pain and pneumonia- 08/29/24 and now readmitted with vomiting, diarrhea, noted to have
pneumonia-pulmonary again consulted for pneumonia 10/23/24. . Patient states that she does have some shortness of breath, minimal cough compared to when she said in the past, no chest pain, pleurisy, admits to some vomiting as well as diarrhea. She
had high volume diarrhea as well as mild abdominal discomfort. She is noted to have possible colitis and noted to have multifocal pneumonia with elevated pro calcitonin.
Past Medical History
Past Medical History: None (Asthma. Pulmonary nodule. EVELINA resolved with weight loss. Obesity/bariatric surgery. Recurrent pneumonias. IgG3 deficienc.Hypertension. Hyperlipidemia. Diabetes. Hypothyroid. History CVA.
Anxiety/depression/schizoaffective disorder. Cognitive dysfunction. GERD. Vertigo. Diverticulosis.)
Past Surgical History: None (Cholecystectomy. Right knee repair. Tonsillectomy. Carpal tunnel 2020 11/2022. Cataract. Glaucoma. Hysterectomy.)
Social History
Tobacco: Non-smoker
Alcohol: None
Drug: None
Occupational Exposures: No known asbestos exposure
Environmental Exposures: . No known tuberculosis exposure
Family History
Family History: Other (. Father-COPD. Mother-CVA and hypertension)
Allergies / Home Medications
Allergies
Allergy/AdvReac Type Severity Reaction Status Date / Time
celecoxib [From Celebrex] Allergy Unknown Verified 10/22/24 08:14
hydrochlorothiazide Allergy Unknown Verified 10/22/24 08:14
NSAIDS (Non-Steroidal Allergy Gastric Verified 10/22/24 08:14
Anti-Inflamma Bypass
pregabalin [From Lyrica] Allergy Unknown Verified 10/22/24 08:14
promethazine Allergy Unknown Verified 10/22/24 08:14
zolpidem [From Ambien] Allergy Unknown Verified 10/22/24 08:14
Home Medications
�Medication �Instructions �Recorded �Confirmed �Last Taken �Type
famotidine 40 mg tablet 40 mg PO HS Gastrointestinal Issue 05/19/15 10/22/24 10/21/24 History
atorvastatin 80 mg tablet 80 mg PO DAILY High Cholesterol 01/10/23 10/22/24 10/21/24 History
benzonatate 200 mg capsule 200 mg PO TIDPRN PRN cough 01/10/23 10/22/24 Unknown History
clopidogrel 75 mg tablet 75 mg PO DAILY Blood Clot 01/10/23 10/22/24 10/21/24 History
Prevention/Tx
donepezil 10 mg tablet 10 mg PO HS Mental Health/Anxiety 01/10/23 10/22/24 10/21/24 History
levalbuterol tartrate 45 2 inh inhalation R Q6HPRN PRN sob 01/10/23 10/22/24 Unknown History
mcg/actuation aerosol inhaler ##0
(Xopenex HFA)
levothyroxine 50 mcg tablet 50 mcg PO DAILY Thyroid 01/10/23 10/22/24 10/21/24 History
lidocaine 1.8 % topical patch 3 patch topical DAILYPRN PRN b/l 01/10/23 10/22/24 03/22/24 History
(ZTlido) knee,hip and/or lower back
mirtazapine 45 mg tablet 45 mg PO HS Mental Health/Anxiety 01/10/23 10/22/24 10/21/24 History
pantoprazole 40 mg tablet,delayed 40 mg PO BID Gastrointestinal Issue 01/10/23 10/22/24 10/21/24 History
release (Protonix)
valsartan 40 mg tablet 20 mg PO DAILY Blood Pressure 01/10/23 10/22/24 10/21/24 History
cyanocobalamin (vitamin B-12) 1,000 mcg PO Q48H Supplement 05/14/23 10/22/24 10/21/24 History
1,000 mcg tablet
cyclobenzaprine 10 mg tablet 10 mg PO HS Muscle Spasms 05/14/23 10/22/24 10/21/24 History
ergocalciferol (vitamin D2) 1,250 1,250 mcg PO WE Supplement 05/14/23 10/22/24 08/23/24 History
mcg (50,000 unit) capsule
hydrocodone 10 mg-acetaminophen 1 tab PO QID pain 05/14/23 10/22/24 10/21/24 History
325 mg tablet
lidocaine-prilocaine 2.5 %-2.5 % 1 applic topical Q8HPRN PRN 05/14/23 10/22/24 Unknown History
topical cream breakthrough mild pain
memantine 10 mg tablet 10 mg PO BID memory/cognition 05/14/23 10/22/24 10/21/24 History
ondansetron 4 mg disintegrating 4 mg PO BIDPRN PRN nausea 05/14/23 10/22/24 Unknown History
tablet
furosemide 40 mg tablet 80 mg PO TUSA Fluid 07/13/23 10/22/24 10/21/24 History
Retention/Swelling
tizanidine 2 mg tablet 2 mg PO BID Muscle Spasms 07/13/23 10/22/24 10/21/24 History
budesonide-formoterol HFA 160 2 inh inhalation R BID 10/08/23 10/22/24 10/21/24 History
mcg-4.5 mcg/actuation aerosol Lung/Breathing Issues
inhaler (Symbicort)
cranberry 500 mg capsule 4,200 mg PO BID Supplement 03/22/24 10/22/2410/21/25 History
pregabalin 25 mg capsule (Lyrica) 25 mg PO TIDPRN PRN neuropathy 03/22/24 10/22/24 Unknown History
potassium chloride 20 mEq 20 meq PO BID Electrolyte Repletion 07/07/24 10/22/24 10/21/24 History
tablet,extended
release(part/cryst) (Klor-Con M)
alprazolam 0.5 mg tablet 0.5 mg PO QIDPRN PRN anxiety 07/23/24 10/22/24 10/21/24 History
furosemide 40 mg tablet (Lasix) 40 mg PO SUMOWETHFR Fluid 07/23/24 10/22/24 08/28/24 History
Retention/Swelling
meclizine 25 mg tablet 25 mg PO TID vertigo/dizziness 08/28/24 10/22/24 10/21/24 History
tiotropium bromide 18 mcg capsule 1 cap inhalation R DAILY 08/28/24 10/22/24 10/21/24 History
with inhalation device (Spiriva Lung/Breathing Issues
with HandiHaler)
azithromycin 250 mg tablet 250 mg PO Q48H INFECTION 10/22/24 10/22/24 Unknown History
benztropine 2 mg tablet 2 mg PO BID Neurological Condition 10/22/24 10/22/24 10/21/24 History
Review of Systems
-
Unable to Obtain full review of systems at this time due to: Other ( per HPI)
Vitals / Labs / Diagnostic Testing
Vital Signs
Temp Pulse Resp BP Pulse Ox
97.9 F 65 18 109/57 95
10/23/24 11:55 10/23/24 11:55 10/23/24 11:55 10/23/24 11:55 10/23/24 11:55
Lab Data
10/23/24 06:24
10/23/24 06:24
Microbiology
10/22/24 10:11 Feces/Stool C. difficile GDH Antigen & Toxins - Final
Negative for toxigenic C.difficile
10/22/24 10:11 Feces/Stool - Final
Negative for Norovirus GI and GII.
10/22/24 10:11 Feces/Stool Salmonella/Shigella Culture - Preliminary
Culture in Progress
10/22/24 10:11 Feces/Stool Campylobacter Culture - Preliminary
Culture in Progress
10/22/24 10:11 Feces/Stool Shiga Toxin Test - Final
No E. coli Shiga Toxin 1 or 2 detected.
Diagnostic Testing:
Physical Exam
-
Exam:
HEENT atraumatic normocephalic and anicteric. Heart was regular without murmur. Chest with diminished breath sounds, rare crackles, no rhonchi and mild kyphoscoliosis. Integument without rashes or icterus. Neurologic exam without weakness or
numbness. Abdomen soft and nondistended. The patient had no JVD, cyanosis, clubbing or edema.
Assessment
-
69-year-old with a history of asthma followed by Dr. Szymanski, suspected silent aspiration, obstructive sleep apnea, hypertension, hyperlipidemia, diabetes, CVA, cognitive impairment as well as anxiety/depression/schizoaffective disorder who
presented with nonproductive cough, shortness of breath after recent hospitalization for community-acquired pneumonia 07/08/2024 and then readmitted with chest pain and pneumonia- 08/29/24 and now readmitted with vomiting, diarrhea, noted to have
pneumonia-pulmonary again consulted for pneumonia 10/23/24. .
Recurrent pneumonia-severe multifocal left-sided community acquired with recent hospitalization and aspiration risk
Nausea/vomiting and diarrhea
Gastroenteritis-Presumed norovirus
Chronic cough
Aspiration risk
Leukocytosis.
Kqfbsl-gkomgtwjaa-xqbkogobll 10.2
Hyperglycemia
Conditions present prior to admission:
Hospitalization 07/2024-recurrent pneumonia left upper lobe
Hospitalization March 2024-right lower lobe pneumonia-aspiration suspected
Hospitalization 06/2024-right lower lobe pneumonia.
Hospitalization 08/29/24-chest pain and pneumonia
Asthma-followed by Dr. Szymanski-maintained on Symbicort and Xopenex as well as Aurea, Astelin and Flonase
Pulmonary nodule-7-8 mm stable
Recurrent pneumonia-aspiration suspected.
IgG3 deficiency
EVELINA resolved with weight loss.
Obesity/bariatric surgery.
Hypertension.
Hyperlipidemia.
Diabetes.
Hypothyroid.
History CVA.
Anxiety/depression/schizoaffective disorder.
Cognitive dysfunction.
GERD.
Vertigo.
Diverticulosis.
Cholecystectomy. Right knee repair. Tonsillectomy. Carpal tunnel 11/2022. Cataract. Glaucoma. Hysterectomy.
Plan
Respiratory decompensation in the form of a chronic cough and persistent but slightly improved opacification on chest x-ray could be consistent with recurrent silent aspiration pneumonia, however, repetitive workup reveals no evidence for
aspiration-noninfectious airspace opacification differential would also include cryptogenic organizing pneumonia, etc.
Supplemental oxygen as needed-attempt to wean
Assess discharge supplemental oxygen needs
Mucolytic's
Aspiration precautions
Previous Speech therapy evaluation-evaluation noted, regular diet with thin liquids, video swallow if silent aspiration suspected
Video swallow also noted
No diet modifications required
Nebulizers as needed.
Symbicort 160/4.5 and Spiriva continues
Mucus clearing devices
Incentive spirometry
Flutter.
Vest therapy continues twice daily-patient feels benefit.
Chest physiotherapy left base with postural drainage
Steroids added previous admission for persistent wheezing--and she responded well-We'll likely add steroids after ESR/pro-calcitonin in the a.m.
CT chest summarized below
Consider bronchoscopy if recurrent infiltrates without clear etiology-hold off for now
Consider steroids for previous wheezing and unexplained pulmonary infiltrates-possible cryptogenic organizing pneumonia-hold off for now with minimal wheezing
IgG total 07/26/2024-low 574
IgM normal 93
Immunoglobulin levels 07/26/2024- IgG 3-low at 9.
IgE-51
Consider outpatient replacement therapy with recurrent infections
Cultures reviewed.
MRSA screen negative
Influenza negative
Blood cultures negative.
C. difficile negative.
Stool cultures negative thus far
Previously, she was unable to produce sputum.
Empiric antibiotics initiated--Unasyn and azithromycin..
Vak-stpoacbluq-ijvshfhr at 5.47
Previous barium swallow/upper GI series completed without evidence of dysmotility and without evidence for complications of the gastric bypass..
Previous GI evaluation- noted
Follow hemoglobin
Transfuse if needed
Monitor blood sugar
Insulin supplementation if needed
DVT prophylaxis-on subcu heparin
GI prophylaxis-on Pepcid at night
Nutrition with aspiration precautions
Early mobilization
Reviewed with nursing as well as primary team
Follow-up pulmonary appointment
Patient was last seen by Dr. Szymanski 03/07/2024 And then an appointment with Janki Lopez NP after recent hospitalization on 10/19/24.-consider gamma globulin replacement therapy or even Biologics and requires radiographic follow-up in consideration
towards chronic immunosuppression/prednisone. If steroid responsive pulmonary process
Diagnostic data:
CXR 10/29/22: New areas of linear interstitial airspace disease in the right middle lobe and basilar portion of the left lower lobe suggesting interstitial pneumonia/bronchiolitis
Chest x-ray 03/02/2024-��NAD
Chest x-ray 03/22/20244283-hqspu-ibrlu pneumonia, no large parapneumonic effusion is appreciated
Chest x-ray 07/07/2024-left lower lobe pneumonia
Chest x-ray 07/23/2024-persistent patchy opacification in the left lung with some improvement compared to 07/10/2024, mildly elevated right hemidiaphragm
Chest x-ray 08/28/24-moderate amount of asymmetrical opacification left upper lobe and lower lobes consistent with pneumonia increased since 07/23/24, .
Chest x-ray 10/22/24-left basilar pneumonia
CT scan08/09/2023: Reviewed,Jermaine Stanley 08/24/2023 08:54:12 AM >��1. Stable left lisa-fissural nodule, likely benign.2.� Interval resolution of previously seen left upper lobe groundglass densities.��������-��������CXR 05/16/2023: Right
upper lobe pneumonia appears unchanged. Linear foci in the left lower lobe may be subsegmental atelectasis.��������-��������
CT chest 04/12/2023: Previous opacity/pneumonia in the right lower lobe has resolved. Mild scarring versus atelectasis in the mid to lower lung zones. A perifissural nodule in the left mid to lower lung zone has remained stable. Multiple subtle
groundglass nodular opacities have developed in the left upper lobe measuring up to 8.4 mm.��������-
VSE 01/12/2023: Upper laryngeal penetration. No aspiration.��������-��������
CT chest 01/10/2023:showed no evidence for central pulmonary embolism. Patchy right lower lobe opacification, most likely pneumonia. Prominence of pulmonary interstitium some vague groundglass opacities bilaterally, sparing the Overload. Mild chronic
fiber changes.��������-��������
CT chest01/10/2023: showed no evidence for acute pulmonary embolism.Right lower lobe airspace disease, likely pneumonia, new compared to November 2022. Mild bilateral groundglass opacities.Stable left lower lobe pulmonary nodule.��������-��������
CT chest 2022:Reviewed, showed 8 mm pleural-based pulmonary nodule slightly increased compared to prior examinations.����������������-��������
CT chest 05/08/2022: Solid pleural-based 8 mm left lower lobe pulmonary nodule. Appearance of slight increase in size. However this can be due to the location and the slice image. Moderate right upper lobe and right lower lobe atelectasis versus
scarring. Mild lingular and right middle lobe atelectasis versus scarring. Gallbladder has been removed.
CT sinus 03/14/2024-unremarkable CT of the sinuses
CT chest 04/24/2024-resolution of right pneumonia, low lung volumes with scattered bilateral subsegmental atelectasis, stable 7 mm solid pulmonary nodule,moderate elevation of right hemidiaphragm
CT chest 08/28/24. -severe airspace consolidation left upper lobe and lower lobe increased, but slightly different distribution than 07/25/24, mild to moderate left hilar and left sided mediastinal lymphadenopathy.
CT chest, abdomen and pelvis 10/22/24-multifocal pneumonia in both lungs, left greater than right, mild enterocolitis
Lower extremity ultrasound 03/22/2024-no evidence for DVT
PFT 08/24/2023-FEV1 2.16-86%, FVC 2.78-84%, TLC 76%, RV 55%, DLCO 72%, DLCO/VA 89%
Data Reviewed
-
PFT: Report reviewed by me
EKG: Report reviewed by me
Radiology: Image personally visualized and interpreted and Report reviewed by me
CT Scan: Image personally visualized and interpreted and Report reviewed by me
Medical Tests (Nuc Med, Echo etc): Report reviewed by me
Labs: Labs reviewed by me
Old Records: Reviewed
Total Time Spent with Patient (in minutes): 65
[2024-10-23 16:00] VITALS: BP 116/67
[2024-10-23] MEDS: SYMBICORT 160/4.5 MCG INHALER 2 PUFF INH (16:40)
[2024-10-23 16:50] LABS: Glucose - Point of Care 150 mg/dl (70-99)
[2024-10-23] MEDS: LOVENOX 40 MG SC (17:27)
[2024-10-23 19:00] VITALS: BP 115/82
[2024-10-23] MEDS: FLEXERIL 10 MG PO (21:26)
[2024-10-23] MEDS: ARICEPT 10 MG PO (21:26)
[2024-10-23] MEDS: PEPCID 40 MG PO (21:26)
[2024-10-23] MEDS: REMERON 45 MG PO (21:26)
[2024-10-23 21:45] LABS: Glucose - Point of Care 153 mg/dl (70-99)
[2024-10-23 23:00] VITALS: BP 110/60
[2024-10-23] MEDS: NON-FORMULARY ITEM 3 PATCH TOPICAL (23:38)
[2024-10-24] MEDS: XANAX 0.5 MG PO ×2 (02:08→23:25)
[2024-10-24] MEDS: UNASYN IV ×4 (05:24→23:25)
[2024-10-24 06:00] VITALS: BMI 32.0
[2024-10-24 06:35] LABS: Hematocrit 29.9 % (37.0-47.0); Hemoglobin 10.2 g/dL (12.0-16.0); Mean Corp Hgb Conc. 34.1 g/dL (33.0-37.0); Mean Corpuscular Hgb 29.7 pg (27.0-31.0); Mean Corpuscular Volume 86.9 fL (81.0-99.0); Mean Platelet Volume 9.7 fL (7.4-10.4); Platelet Count 164 10^3/uL (130-400); Red Blood Cell Count 3.44 10^6/uL (4.20-5.40); Red Cell Dist. Width 13.7 % (11.5-14.5); White Blood Cell Count 8.2 10^3/uL (4.8-10.8)
[2024-10-24 07:00] VITALS: BP 149/89
--- NOTE | 2024-10-24 07:11 | W.PN.HOSP.TC ---
Today's Communication/Plan
-
started carafate ACHS
NPO after midnight for Barium Esophagram
cont abx
trend Troponin
Assessment / Plan
Assessment / Plan
Physical Exam
General: Comfortable and Conversant
HEENT: Anicteric moist mucous membranes
Respiratory: Clear and Non Labored Respirations
Cardiac: S1/S2 and Regular Rhythm
GI: Soft and nontender bowel sounds present
Musculoskeletal: No Clubbing and No Cyanosis
Skin: Warm and Dry
Neuro: Awake, Alert and Oriented
Psych: Calm
69F CVA, HTN, DM, Bipolar Disorder, Chronic Pain and Recurrent Pneumonia p/w vomiting and diarrhea. Reported high volume diarrhea and inability to tolerate oral fluids. Upon arrival to the ED she was found to be febrile with temp 100.7F. Denied
sick contacts, recent travel or usual food intake, but is maintained on chronic antibiotics for recurrent pneumonia.
Sepsis secondary to Viral Gastroenteritis
-Norovirus CDiff neg
-Continue supportive care
-Continue IVFs
-Continue anti-emetics
-clear liquid advanced to Low residue
Chest pain 10/24/24 unclear etiology suspected Esophageal related
sternal, exacerbated with swallowing, improvement noted with once maalox
no significant changes noted on EKG
mild troponin elevation, will trend
started carafate ACHS
NPO after midnight for Barium Esophagram
Associate Multifocal PNA
Recurrent Pneumonia
-elevated Procal
-Continue usual vest therapy
-Continue azithromycin as prior to admission
-Consult Pulmonary appreciated
-cont empiric Unasyn
Hx CVA/TIA
-Continue Plavix
Essential Hypertension
-Continue valsartan withhold parameters
Hyperlipidemia
-Continue atorvastatin
Diabetes Mellitus, Type II
-Monitor sugars and continue coverage insulin
Asthma, no acute exacerbation
-Continue Symbicort and Spiriva
Hypothyroidism
-Continue levothyroxine
Bipolar Disorder / Schizoaffective Disorder
-Continue alprazolam, mirtazapine
Dementia
-Continue Aricept and Namenda
Chronic Pain Syndrome with Opioid Dependence secondary to Fibromyalgia and Ankylosing Spondylitis
-Continue hydrocodone/acetaminophen
-Continue cyclobenzaprine, tizanidine and lidocaine cream/patch
GERD
-Continue Pepcid and Protonix
Chronic Lower Extremity Lymphedema
-Held Lasix in setting of GI Illness, diarrhea since resolved
-home Lasix resumed
Obesity s/p Bariatric Surgery
DVT Proph: Lovenox
Code Status: DNR/DNI
I spent a total of 50 minutes with the patient or on the floor. More than 50% of this time involved counseling and coordination of care.
Anticipated Discharge: 24 - 48 hours
Subjective/Interval History
-
Date of Service: October 24, 2024
Episode sternal chest pain starting in morning with associate nausea. Constant, gradually improved over the course the day. Exacerbated with swallowing. Noted improvement in pain with once maalox.
Objective Data
-
Labs:
Laboratory Results
10/24/24
06:12
WBC 8.2
Hgb 10.2 L
Hct 29.9 L
Plt Count 164
Sodium Pending
Potassium Pending
Chloride Pending
Carbon Dioxide Pending
BUN Pending
Creatinine Pending
Glucose Pending
Calcium Pending
Vital Signs:
Vital Signs
Temp Pulse Resp BP Pulse Ox
97.8 F 84 14 110/60 94
10/23/24 23:00 10/23/24 23:00 10/23/24 23:00 10/23/24 23:00 10/23/24 23:00
I&O
10/23/24 10/24/24 10/25/24
06:59 06:59 06:59
Intake Total 1760 / 1760 4000 / 4000
Output Total 500 / 500 300 / 300
Balance 1260 / 1260 3700 / 3700
[2024-10-24] MEDS: ZOFRAN 4 MG IV (07:19)
[2024-10-24 08:01] LABS: Blood Urea Nitrogen 12 mg/dl (7-17); Calcium 7.8 mg/dl (8.4-10.2); Carbon Dioxide 19 mmol/L (22-30); Chloride 110 mmol/L (98-107); Estimated Creatinine Clearance 106 ml/min; Glucose 81 mg/dl (70-99); Magnesium 2.1 mg/dl (1.6-2.3); Phosphorus 2.2 mg/dl (2.5-4.5); Potassium 3.7 mmol/L (3.5-5.1); Sodium 139 mmol/L (135-145); eGFR > 60.00
[2024-10-24] MEDS: SYMBICORT 160/4.5 MCG INHALER 2 PUFF INH ×2 (08:05→19:52)
[2024-10-24] MEDS: SPIRIVA RESPIMAT 2.5 MCG 2 PUFF INH (08:05)
[2024-10-24 08:10] LABS: Glucose - Point of Care 94 mg/dl (70-99)
[2024-10-24] MEDS: SYNTHROID 50 MCG PO (08:16)
[2024-10-24] MEDS: ROXICODONE 5 MG PO ×4 (08:21→21:06)
[2024-10-24 08:37] LABS: Troponin I 0.031 ng/ml
[2024-10-24] MEDS: DIOVAN 20 MG PO (08:52)
[2024-10-24] MEDS: ANTIVERT 25 MG PO ×3 (08:52→21:09)
[2024-10-24] MEDS: NORCO 5/325 1 TABLET PO ×4 (08:52→21:09)
[2024-10-24] MEDS: NAMENDA 10 MG PO ×2 (08:53→21:05)
[2024-10-24] MEDS: LIPITOR 80 MG PO (08:54)
[2024-10-24] MEDS: PLAVIX 75 MG PO (08:54)
[2024-10-24] MEDS: COGENTIN 2 MG PO ×2 (08:54→21:13)
[2024-10-24] MEDS: KCL 20 MEQ PO ×2 (08:54→21:08)
[2024-10-24] MEDS: PROTONIX 40 MG PO ×2 (08:54→21:08)
[2024-10-24] MEDS: ZANAFLEX 2 MG PO ×2 (08:54→21:07)
[2024-10-24] MEDS: NOVOLOG FLEXPEN-LOW RESISTANCE SC ×2 (08:57→17:07)
[2024-10-24] MEDS: POTASSIUM PHOSPHATE 259.0909 MEQ IV (10:20)
[2024-10-24] MEDS: MAALOX 30 ML PO (10:20)
--- NOTE | 2024-10-24 10:38 | W.PN.PUL.V3 ---
Today's Communication / Plan
-
.
Antibiotics.
Wean FiO2.
Considering steroid addition.
Assessment
-
69-year-old with a history of asthma followed by Dr. Szymanski, suspected silent aspiration, obstructive sleep apnea, hypertension, hyperlipidemia, diabetes, CVA, cognitive impairment as well as anxiety/depression/schizoaffective disorder who
presented with nonproductive cough, shortness of breath after recent hospitalization for community-acquired pneumonia 07/08/2024 and then readmitted with chest pain and pneumonia- 08/29/24 and now readmitted with vomiting, diarrhea, noted to have
pneumonia-pulmonary again consulted for pneumonia 10/23/24. .
Recurrent pneumonia-severe multifocal left-sided community acquired with recent hospitalization and aspiration risk
Nausea/vomiting and diarrhea
Gastroenteritis-Presumed norovirus
Chronic cough
Atypical chest pain
Aspiration risk
Leukocytosis.
Rqcopd-ipxlsywkrh-hitnixqvsq 10.2
Hyperglycemia
Conditions present prior to admission:
Hospitalization 07/2024-recurrent pneumonia left upper lobe
Hospitalization March 2024-right lower lobe pneumonia-aspiration suspected
Hospitalization 06/2024-right lower lobe pneumonia.
Hospitalization 08/29/24-chest pain and pneumonia
Asthma-followed by Dr. Szymanski-maintained on Symbicort and Xopenex as well as Aurea, Astelin and Flonase
Pulmonary nodule-7-8 mm stable
Recurrent pneumonia-aspiration suspected.
IgG3 deficiency
EVELINA resolved with weight loss.
Obesity/bariatric surgery.
Hypertension.
Hyperlipidemia.
Diabetes.
Hypothyroid.
History CVA.
Anxiety/depression/schizoaffective disorder.
Cognitive dysfunction.
GERD.
Vertigo.
Diverticulosis.
Cholecystectomy. Right knee repair. Tonsillectomy. Carpal tunnel 11/2022. Cataract. Glaucoma. Hysterectomy.
Plan
Respiratory decompensation in the form of a chronic cough and persistent but slightly improved opacification on chest x-ray could be consistent with recurrent silent aspiration pneumonia, however, repetitive workup reveals no evidence for
aspiration-noninfectious airspace opacification differential would also include cryptogenic organizing pneumonia, etc.
Supplemental oxygen as needed-attempt to wean
Assess discharge supplemental oxygen needs
Mucolytic's
Aspiration precautions
Previous Speech therapy evaluation-evaluation noted, regular diet with thin liquids, video swallow if silent aspiration suspected
Video swallow also noted
No diet modifications required
Nebulizers as needed.
Symbicort 160/4.5 and Spiriva continues
Mucus clearing devices
Incentive spirometry
Flutter.
Vest therapy continues twice daily-patient feels benefit.
Chest physiotherapy left base with postural drainage
Steroids added previous admission for persistent wheezing--and she responded well-if she continues to have wheezing will add steroids
CT chest summarized below
Consider bronchoscopy if recurrent infiltrates without clear etiology-hold off for now
Consider steroids for previous wheezing and unexplained pulmonary infiltrates-possible cryptogenic organizing pneumonia-hold off for now with minimal wheezing
IgG total 07/26/2024-low 574
IgM normal 93
Immunoglobulin levels 07/26/2024- IgG 3-low at 9.
IgE-51
Consider outpatient replacement therapy with recurrent infections.
Atypical chest pain-troponin and EKG negative.
Hospitalist aware-trying Maalox
Cultures reviewed.
MRSA screen negative
Influenza negative
Blood cultures negative.
C. difficile negative.
Stool cultures negative thus far
Previously, she was unable to produce sputum.
Empiric antibiotics initiated--Unasyn and azithromycin
Goc-nijnnyfngh-dsbekoly at 5.47
Previous barium swallow/upper GI series completed without evidence of dysmotility and without evidence for complications of the gastric bypass..
Previous GI evaluation- noted
Follow hemoglobin
Transfuse if needed
Monitor blood sugar
Insulin supplementation if needed
DVT prophylaxis-on subcu heparin
GI prophylaxis-on Pepcid at night as well as pantoprazole
Nutrition with aspiration precautions
Early mobilization
Reviewed with nursing as well as primary team
Follow-up pulmonary appointment
Patient was last seen by Dr. Szymanski 03/07/2024 And then an appointment with Janki Lopez [employer] after recent hospitalization on 10/19/24.-consider gamma globulin replacement therapy or even Biologics and requires radiographic follow-up in consideration
towards chronic immunosuppression/prednisone. If steroid responsive pulmonary process
Diagnostic data:
CXR 10/29/22: New areas of linear interstitial airspace disease in the right middle lobe and basilar portion of the left lower lobe suggesting interstitial pneumonia/bronchiolitis
Chest x-ray 03/02/2024-��NAD
Chest x-ray 03/22/20244826-qxxdi-dawth pneumonia, no large parapneumonic effusion is appreciated
Chest x-ray 07/07/2024-left lower lobe pneumonia
Chest x-ray 07/23/2024-persistent patchy opacification in the left lung with some improvement compared to 07/10/2024, mildly elevated right hemidiaphragm
Chest x-ray 08/28/24-moderate amount of asymmetrical opacification left upper lobe and lower lobes consistent with pneumonia increased since 07/23/24, .
Chest x-ray 10/22/24-left basilar pneumonia
CT scan08/09/2023: Reviewed,Jermaine Stanley 08/24/2023 08:54:12 AM >��1. Stable left lisa-fissural nodule, likely benign.2.� Interval resolution of previously seen left upper lobe groundglass densities.��������-��������CXR 05/16/2023: Right
upper lobe pneumonia appears unchanged. Linear foci in the left lower lobe may be subsegmental atelectasis.��������-��������
CT chest 04/12/2023: Previous opacity/pneumonia in the right lower lobe has resolved. Mild scarring versus atelectasis in the mid to lower lung zones. A perifissural nodule in the left mid to lower lung zone has remained stable. Multiple subtle
groundglass nodular opacities have developed in the left upper lobe measuring up to 8.4 mm.��������-
VSE 01/12/2023: Upper laryngeal penetration. No aspiration.��������-��������
CT chest 01/10/2023:showed no evidence for central pulmonary embolism. Patchy right lower lobe opacification, most likely pneumonia. Prominence of pulmonary interstitium some vague groundglass opacities bilaterally, sparing the Overload. Mild chronic
fiber changes.��������-��������
CT chest01/10/2023: showed no evidence for acute pulmonary embolism.Right lower lobe airspace disease, likely pneumonia, new compared to November 2022. Mild bilateral groundglass opacities.Stable left lower lobe pulmonary nodule.��������-��������
CT chest 2022:Reviewed, showed 8 mm pleural-based pulmonary nodule slightly increased compared to prior examinations.����������������-��������
CT chest 05/08/2022: Solid pleural-based 8 mm left lower lobe pulmonary nodule. Appearance of slight increase in size. However this can be due to the location and the slice image. Moderate right upper lobe and right lower lobe atelectasis versus
scarring. Mild lingular and right middle lobe atelectasis versus scarring. Gallbladder has been removed.
CT sinus 03/14/2024-unremarkable CT of the sinuses
CT chest 04/24/2024-resolution of right pneumonia, low lung volumes with scattered bilateral subsegmental atelectasis, stable 7 mm solid pulmonary nodule,moderate elevation of right hemidiaphragm
CT chest 08/28/24. -severe airspace consolidation left upper lobe and lower lobe increased, but slightly different distribution than 07/25/24, mild to moderate left hilar and left sided mediastinal lymphadenopathy.
CT chest, abdomen and pelvis 10/22/24-multifocal pneumonia in both lungs, left greater than right, mild enterocolitis
Lower extremity ultrasound 03/22/2024-no evidence for DVT
PFT 08/24/2023-FEV1 2.16-86%, FVC 2.78-84%, TLC 76%, RV 55%, DLCO 72%, DLCO/VA 89%
Subjective Data
-
Date of Service:
Date of Service: October 24, 2024
Chief Complaint: Pulmonary Follow Up and Dyspnea Follow Up
Subjective:
complained some chest pain, troponin and EKG negative, possibly reflux, hospitalist aware, no completes worsening shortness of breath, developing nonproductive cough, no abdominal pain
Review of Systems
General: Other (per HPI)
Objective Data
Data Reviewed
Vital Signs / I&O:
Vital Signs
Temp Pulse Resp BP Pulse Ox
98.2 F 77 16 149/89 94
10/24/24 07:00 10/24/24 08:10 10/24/24 08:10 10/24/24 08:52 10/24/24 08:10
Intake and Output
10/23/24 10/24/24 10/25/24
06:59 06:59 06:59
Intake Total 1760 / 1760 4000 / 4000
Output Total 500 / 500 300 / 300
Balance 1260 / 1260 3700 / 3700
SaO2: 94
Physical Exam
General: Respiratory Distress (n) and Comfortable
HEENT: Normocephalic and Anicteric
Cardiovascular: Regular Rhythm and Murmur
Respiratory: Wheeze ( few forced expiratory), Crackles ( basilar), Rhonchi (n), Non-Labored Respirations, Accessory Resp Muscle Use (n) and Stridor
GI: Soft, Non Distended and Non Tender
Neurology: Awake and No Motor Deficits
Skin: Warm, Good Color, Cyanosis (n), Jaundice (n) and Rash (n)
Labs/Micro/Reports
Lab Data
10/24/24 06:12
10/24/24 06:12
Microbiology
10/22/24 10:11 Feces/Stool Salmonella/Shigella Culture - Final
No Salmonella, Shigella, Aeromonas or Plesiomonas species
isolated.
10/22/24 10:11 Feces/Stool Campylobacter Culture - Final
No Campylobacter species isolated.
10/22/24 10:11 Feces/Stool Shiga Toxin Test - Final
No E. coli Shiga Toxin 1 or 2 detected.
10/22/24 13:51 Blood/Venous Blood Culture - Preliminary
No Growth in 24 hours- Final report to follow
10/22/24 13:51 Blood/Venous Blood Culture - Preliminary
No Growth in 24 hours- Final report to follow
10/22/24 10:11 Feces/Stool C. difficile GDH Antigen & Toxins - Final
Negative for toxigenic C.difficile
10/22/24 10:11 Feces/Stool - Final
Negative for Norovirus GI and GII.
--- NOTE | 2024-10-24 10:55 | CM ---
Patient seen at bedside, patient declined VN supports. Patient uncertain of discharge plan for timing. CM will continue to follow for discharge planning needs.
Plan; home with no needs vs home with VN
[2024-10-24 11:00] VITALS: BP 126/64
[2024-10-24 11:55] LABS: Glucose - Point of Care 169 mg/dl (70-99)
[2024-10-24] MEDS: NOVOLOG FLEXPEN-LOW RESISTANCE 1 UNITS SC (12:03)
[2024-10-24 12:43] LABS: Troponin I 0.036 ng/ml
--- NOTE | 2024-10-24 13:43 | PTCARENOTE ---
at 07, patient c/o nausea and medicated with PRN Zofran. 07, patient c/o of mid sternal chest pressure/pain. 05/27. b/p 149/89 and heart rate 75. no sob at rest. EKG ordered per telemetry protocol and showing NSR. at 07, Dr. Guillermo made
aware and he is ordering Troponin. patient made aware, will continue to monitor.
[2024-10-24 15:00] VITALS: BP 152/85
[2024-10-24 16:52] LABS: Glucose - Point of Care 120 mg/dl (70-99)
[2024-10-24] MEDS: ZITHROMAX 250 MG PO (17:14)
[2024-10-24] MEDS: CARAFATE 1 GRAM PO ×2 (17:15→21:05)
[2024-10-24] MEDS: LOVENOX 40 MG SC (17:16)
[2024-10-24 19:26] VITALS: BP 147/84
[2024-10-24] MEDS: NSS 1000 IV (21:04)
[2024-10-24] MEDS: REMERON 45 MG PO (21:06)
[2024-10-24] MEDS: PEPCID 40 MG PO (21:07)
[2024-10-24] MEDS: FLEXERIL 10 MG PO (21:08)
[2024-10-24] MEDS: ARICEPT 10 MG PO (21:09)
[2024-10-24] MEDS: NON-FORMULARY ITEM 3 PATCH TOPICAL (21:14)
[2024-10-24 22:55] LABS: Glucose - Point of Care 99 mg/dl (70-99)
[2024-10-24 23:05] VITALS: BP 151/79
[2024-10-25] VITALS (7 sets, daily range): BP systolic 152–175; BP diastolic 75–97; BMI 32.1
[2024-10-25] MEDS: NSS 1000 IV ×2 (00:36→11:24)
--- NOTE | 2024-10-25 03:40 | PTCARENOTE ---
Pt placed on 2L O2 fo SOB. Pt dyspneic w/ exertion. Pt had a Soft medium BM, not eligible to send for noro testing.
[2024-10-25] MEDS: SYNTHROID 50 MCG PO (05:19)
[2024-10-25] MEDS: UNASYN IV ×3 (05:19→17:16)
[2024-10-25 05:24] LABS: Glucose - Point of Care 96 mg/dl (70-99)
[2024-10-25 06:20] LABS: Hematocrit 33.9 % (37.0-47.0); Hemoglobin 10.9 g/dL (12.0-16.0); Mean Corp Hgb Conc. 32.2 g/dL (33.0-37.0); Mean Corpuscular Hgb 28.9 pg (27.0-31.0); Mean Corpuscular Volume 89.9 fL (81.0-99.0); Mean Platelet Volume 9.4 fL (7.4-10.4); Platelet Count 174 10^3/uL (130-400); Red Blood Cell Count 3.77 10^6/uL (4.20-5.40); Red Cell Dist. Width 13.4 % (11.5-14.5); White Blood Cell Count 5.4 10^3/uL (4.8-10.8)
[2024-10-25 06:48] LABS: Troponin I 0.041 ng/ml
[2024-10-25 07:01] LABS: Blood Urea Nitrogen 8 mg/dl (7-17); Calcium 8.3 mg/dl (8.4-10.2); Carbon Dioxide 20 mmol/L (22-30); Chloride 109 mmol/L (98-107); Estimated Creatinine Clearance 106 ml/min; Glucose 106 mg/dl (70-99); Magnesium 1.9 mg/dl (1.6-2.3); Phosphorus 3.2 mg/dl (2.5-4.5); Potassium 4.8 mmol/L (3.5-5.1); Sodium 140 mmol/L (135-145); eGFR > 60.00
[2024-10-25] MEDS: CARAFATE PO (07:39)
[2024-10-25] MEDS: DIOVAN 20 MG PO (07:40)
[2024-10-25] MEDS: COGENTIN 2 MG PO ×2 (07:40→20:46)
[2024-10-25] MEDS: PROTONIX 40 MG PO ×2 (07:40→20:46)
[2024-10-25] MEDS: ROXICODONE 5 MG PO ×4 (07:40→21:49)
[2024-10-25] MEDS: ZANAFLEX 2 MG PO ×2 (07:40→20:46)
[2024-10-25] MEDS: LIPITOR 80 MG PO (07:40)
[2024-10-25] MEDS: VITAMIN B-12 1000 MCG PO (07:41)
[2024-10-25] MEDS: PLAVIX 75 MG PO (07:41)
[2024-10-25] MEDS: NORCO 5/325 1 TABLET PO ×4 (07:41→21:49)
[2024-10-25] MEDS: ANTIVERT 25 MG PO ×3 (07:41→21:49)
[2024-10-25] MEDS: KCL 20 MEQ PO ×2 (07:41→20:46)
[2024-10-25] MEDS: NAMENDA 10 MG PO ×2 (07:41→20:46)
[2024-10-25] MEDS: LASIX 40 MG PO (07:43)
[2024-10-25] MEDS: SYMBICORT 160/4.5 MCG INHALER 2 PUFF INH ×2 (07:45→19:43)
[2024-10-25] MEDS: SPIRIVA RESPIMAT 2.5 MCG 2 PUFF INH (07:45)
[2024-10-25] MEDS: DRISDOL (VITAMIN D2) 50000 UNITS PO (07:47)
--- NOTE | 2024-10-25 07:58 | W.PN.HOSP.TC ---
Today's Communication/Plan
-
cont abx
barium esophagram
resume home lasix
pain control
prednisone as per Pulm
Assessment / Plan
Assessment / Plan
Physical Exam
General: Comfortable and Conversant
HEENT: Anicteric moist mucous membranes
Respiratory: Clear and Non Labored Respirations
Cardiac: S1/S2 and Regular Rhythm
GI: Soft and nontender bowel sounds present
Musculoskeletal: No Clubbing and No Cyanosis
Skin: Warm and Dry
Neuro: Awake, Alert and Oriented
Psych: Calm
69F CVA, HTN, DM, Bipolar Disorder, Chronic Pain and Recurrent Pneumonia p/w vomiting and diarrhea. Reported high volume diarrhea and inability to tolerate oral fluids. Upon arrival to the ED she was found to be febrile with temp 100.7F. Denied
sick contacts, recent travel or usual food intake, but is maintained on chronic antibiotics for recurrent pneumonia.
Sepsis secondary to Viral Gastroenteritis
-Norovirus CDiff neg
-Continue supportive care
-Continue IVFs
-Continue anti-emetics
-clear liquid advanced to Low residue
Chest pain 10/24/24 unclear etiology suspected Esophageal related
sternal, exacerbated with swallowing, improvement noted with once maalox
no significant changes noted on EKG
started carafate ACHS but no significant improvement noted since discontinued
Barium Esophagram appreciated esophageal dysmotility, GI eval requested
Mild Troponin elevation likely Non-ischemic CT
-trended to peak 0.044 since trended down
Associate Multifocal PNA
Recurrent Pneumonia
-elevated Procal
-Continue VEST therapy
-Continue azithromycin as prior to admission
-Consult Pulmonary appreciated Prednisone started
-cont empiric Unasyn
Hx CVA/TIA
-Continue Plavix
Essential Hypertension
-Continue valsartan with holding parameters
Hyperlipidemia
-Continue atorvastatin
Diabetes Mellitus, Type II
-Monitor sugars and continue coverage insulin
Asthma, no acute exacerbation
-Continue Symbicort and Spiriva
Hypothyroidism
-Continue levothyroxine
Bipolar Disorder / Schizoaffective Disorder
-Continue alprazolam, mirtazapine
Dementia
-Continue Aricept and Namenda
Chronic Pain Syndrome with Opioid Dependence secondary to Fibromyalgia and Ankylosing Spondylitis
-Continue hydrocodone/acetaminophen
-Continue cyclobenzaprine, tizanidine and lidocaine cream/patch
GERD
-Continue Pepcid and Protonix
Chronic Lower Extremity Lymphedema
-Held Lasix in setting of GI Illness, diarrhea since resolved
-home Lasix resumed
Obesity s/p Bariatric Surgery
DVT Proph: Lovenox
Code Status: DNR/DNI
I spent a total of 50 minutes with the patient or on the floor. More than 50% of this time involved counseling and coordination of care.
Anticipated Discharge: 24 - 48 hours
Subjective/Interval History
-
Date of Service: October 25, 2024
No acute distress sitting up comfortably in bed. Odynophagia persists. Chest discomfort also persists but significantly improved from prior as per patient.
Objective Data
-
Labs:
Laboratory Results
10/25/24
06:05
WBC 5.4
Hgb 10.9 L
Hct 33.9 L
Plt Count 174
Sodium 140
Potassium 4.8 D
Chloride 109 H
Carbon Dioxide 20 L
BUN 8
Creatinine 0.6
Glucose 106 H
Calcium 8.3 L
Vital Signs:
Vital Signs
Temp Pulse Resp BP Pulse Ox
98.0 F 83 16 165/75 92
10/25/24 03:41 10/25/24 07:51 10/25/24 07:51 10/25/24 03:50 10/25/24 07:51
I&O
10/24/24 10/25/24 10/26/24
06:59 06:59 06:59
Intake Total 4000 / 4000 3130 / 3130
Output Total 300 / 300
Balance 3700 / 3700 3130 / 3130
[2024-10-25 08:14] LABS: Glucose - Point of Care 115 mg/dl (70-99)
--- NOTE | 2024-10-25 10:09 | W.PN.PUL.V3 ---
Today's Communication / Plan
-
Wean oxygen.
Prednisone for persistent wheezing and infiltrates.
Esophagram pending
Assessment
-
69-year-old with a history of asthma followed by Dr. Szymanski, suspected silent aspiration, obstructive sleep apnea, hypertension, hyperlipidemia, diabetes, CVA, cognitive impairment as well as anxiety/depression/schizoaffective disorder who
presented with nonproductive cough, shortness of breath after recent hospitalization for community-acquired pneumonia 07/08/2024 and then readmitted with chest pain and pneumonia- 08/29/24 and now readmitted with vomiting, diarrhea, noted to have
pneumonia-pulmonary again consulted for pneumonia 10/23/24. .
Recurrent pneumonia-severe multifocal left-sided community acquired with recent hospitalization and aspiration risk
Nausea/vomiting and diarrhea
Gastroenteritis-Presumed norovirus
Chronic cough
Atypical chest pain
Aspiration risk
Leukocytosis.
Frdicu-myqqcrxajd-wtyipeyvcu 10.2
Hyperglycemia
Conditions present prior to admission:
Hospitalization 07/2024-recurrent pneumonia left upper lobe
Hospitalization March 2024-right lower lobe pneumonia-aspiration suspected
Hospitalization 06/2024-right lower lobe pneumonia.
Hospitalization 08/29/24-chest pain and pneumonia
Asthma-followed by Dr. Szymanski-maintained on Symbicort and Xopenex as well as Aurea, Astelin and Flonase
Pulmonary nodule-7-8 mm stable
Recurrent pneumonia-aspiration suspected.
IgG3 deficiency
EVELINA resolved with weight loss.
Obesity/bariatric surgery.
Hypertension.
Hyperlipidemia.
Diabetes.
Hypothyroid.
History CVA.
Anxiety/depression/schizoaffective disorder.
Cognitive dysfunction.
GERD.
Vertigo.
Diverticulosis.
Cholecystectomy. Right knee repair. Tonsillectomy. Carpal tunnel 2020 11/2022. Cataract. Glaucoma. Hysterectomy.
Plan
Respiratory decompensation in the form of a chronic cough and persistent but slightly improved opacification on chest x-ray could be consistent with recurrent silent aspiration pneumonia, however, repetitive workup reveals no evidence for
aspiration-noninfectious airspace opacification differential would also include cryptogenic organizing pneumonia, etc.
Supplemental oxygen as needed-attempt to wean
Assess discharge supplemental oxygen needs-currently on 2 L-95% saturation
Mucolytic's
Aspiration precautions
Previous Speech therapy evaluation-evaluation noted, regular diet with thin liquids, video swallow if silent aspiration suspected
Video swallow also noted.
Esophagram 10/25/24-pending
No diet modifications required
Nebulizers as needed.
Symbicort 160/4.5 and Spiriva continues
Mucus clearing devices
Incentive spirometry
Flutter.
Vest therapy continues twice daily-patient feels benefit.
Chest physiotherapy left base with postural drainage
Steroids added previous admission for persistent wheezing--and she responded well-if she continues to have wheezing will add steroids
CT chest summarized below
Consider bronchoscopy if recurrent infiltrates without clear etiology-hold off for now.
Steroids will be initiated for mild persistent wheezing and unexplained pulmonary infiltrates-possible cryptogenic organizing pneumonia-hold off for now with minimal wheezing
IgG total 07/26/2024-low 574
IgM normal 93
Immunoglobulin levels 07/26/2024- IgG 3-low at 9.
IgE-51
Consider outpatient replacement therapy with recurrent infections.
Atypical chest pain-troponin and EKG negative.
Hospitalist aware-trying Maalox
Cultures reviewed.
MRSA screen negative
Influenza negative
Blood cultures negative.
C. difficile negative.
Stool cultures negative thus far
Previously, she was unable to produce sputum.
Empiric antibiotics initiated--Unasyn and azithromycin
Nek-fmoigrwedc-aqvfrakw at 5.47
Previous barium swallow/upper GI series completed without evidence of dysmotility and without evidence for complications of the gastric bypass..
Previous GI evaluation- noted
Follow hemoglobin
Transfuse if needed
Monitor blood sugar
Insulin supplementation if needed
DVT prophylaxis-on subcu heparin
GI prophylaxis-on Pepcid at night as well as pantoprazole
Nutrition with aspiration precautions
Early mobilization
Reviewed with nursing as well as primary team
Follow-up pulmonary appointment
Patient was last seen by Dr. Szymanski 03/07/2024 And then an appointment with Janki Lopez [employer] after recent hospitalization on 10/19/24.-consider gamma globulin replacement therapy or even Biologics and requires radiographic follow-up in consideration
towards chronic immunosuppression/prednisone. If steroid responsive pulmonary process
Diagnostic data:
CXR 10/29/22: New areas of linear interstitial airspace disease in the right middle lobe and basilar portion of the left lower lobe suggesting interstitial pneumonia/bronchiolitis
Chest x-ray 03/02/2024-��NAD
Chest x-ray 03/22/20245612-vmgxv-uszic pneumonia, no large parapneumonic effusion is appreciated
Chest x-ray 07/07/2024-left lower lobe pneumonia
Chest x-ray 07/23/2024-persistent patchy opacification in the left lung with some improvement compared to 07/10/2024, mildly elevated right hemidiaphragm
Chest x-ray 08/28/24-moderate amount of asymmetrical opacification left upper lobe and lower lobes consistent with pneumonia increased since 07/23/24, .
Chest x-ray 10/22/24-left basilar pneumonia
CT scan08/09/2023: Reviewed,Jermaine Stanley 08/24/2023 08:54:12 AM >��1. Stable left lisa-fissural nodule, likely benign.2.� Interval resolution of previously seen left upper lobe groundglass densities.��������-��������CXR 05/16/2023: Right
upper lobe pneumonia appears unchanged. Linear foci in the left lower lobe may be subsegmental atelectasis.��������-��������
CT chest 04/12/2023: Previous opacity/pneumonia in the right lower lobe has resolved. Mild scarring versus atelectasis in the mid to lower lung zones. A perifissural nodule in the left mid to lower lung zone has remained stable. Multiple subtle
groundglass nodular opacities have developed in the left upper lobe measuring up to 8.4 mm.��������-
VSE 01/12/2023: Upper laryngeal penetration. No aspiration.��������-��������
CT chest 01/10/2023:showed no evidence for central pulmonary embolism. Patchy right lower lobe opacification, most likely pneumonia. Prominence of pulmonary interstitium some vague groundglass opacities bilaterally, sparing the Overload. Mild chronic
fiber changes.��������-��������
CT chest01/10/2023: showed no evidence for acute pulmonary embolism.Right lower lobe airspace disease, likely pneumonia, new compared to November 2022. Mild bilateral groundglass opacities.Stable left lower lobe pulmonary nodule.��������-��������
CT chest 2022:Reviewed, showed 8 mm pleural-based pulmonary nodule slightly increased compared to prior examinations.����������������-��������
CT chest 05/08/2022: Solid pleural-based 8 mm left lower lobe pulmonary nodule. Appearance of slight increase in size. However this can be due to the location and the slice image. Moderate right upper lobe and right lower lobe atelectasis versus
scarring. Mild lingular and right middle lobe atelectasis versus scarring. Gallbladder has been removed.
CT sinus 03/14/2024-unremarkable CT of the sinuses
CT chest 04/24/2024-resolution of right pneumonia, low lung volumes with scattered bilateral subsegmental atelectasis, stable 7 mm solid pulmonary nodule,moderate elevation of right hemidiaphragm
CT chest 08/28/24. -severe airspace consolidation left upper lobe and lower lobe increased, but slightly different distribution than 07/25/24, mild to moderate left hilar and left sided mediastinal lymphadenopathy.
CT chest, abdomen and pelvis 10/22/24-multifocal pneumonia in both lungs, left greater than right, mild enterocolitis
Lower extremity ultrasound 03/22/2024-no evidence for DVT
PFT 08/24/2023-FEV1 2.16-86%, FVC 2.78-84%, TLC 76%, RV 55%, DLCO 72%, DLCO/VA 89%
Subjective Data
-
Date of Service:
Date of Service: October 25, 2024
Chief Complaint: Pulmonary Follow Up and Dyspnea Follow Up
Subjective:
Still with cough, forced wheezes, no change in abdominal pain,
Review of Systems
General: Other ( per HPI)
Objective Data
Data Reviewed
Vital Signs / I&O:
Vital Signs
Temp Pulse Resp BP Pulse Ox
98.2 F 82 16 160/97 95
10/25/24 07:00 10/25/24 08:30 10/25/24 07:51 10/25/24 08:30 10/25/24 09:32
Intake and Output
10/24/24 10/25/24 10/26/24
06:59 06:59 06:59
Intake Total 4000 / 4000 3130 / 3130
Output Total 300 / 300
Balance 3700 / 3700 3130 / 3130
SaO2: 95
Nasal Cannula flow liters per minute: 2
Physical Exam
General: Respiratory Distress (n) and Comfortable
HEENT: Normocephalic and Anicteric
Cardiovascular: Regular Rhythm and Murmur
Respiratory: Wheeze ( few forced expiratory), Crackles ( basilar), Rhonchi (n), Non-Labored Respirations, Accessory Resp Muscle Use (n) and Stridor
GI: Soft, Non Distended and Non Tender
Neurology: Awake and No Motor Deficits
Skin: Warm, Good Color, Cyanosis (n), Jaundice (n) and Rash (n)
Labs/Micro/Reports
Lab Data
10/25/24 06:05
10/25/24 06:05
Microbiology
10/22/24 13:51 Blood/Venous Blood Culture - Preliminary
No Growth in 48 hours- Final report to follow
10/22/24 13:51 Blood/Venous Blood Culture - Preliminary
No Growth in 48 hours- Final report to follow
10/22/24 10:11 Feces/Stool Salmonella/Shigella Culture - Final
No Salmonella, Shigella, Aeromonas or Plesiomonas species
isolated.
10/22/24 10:11 Feces/Stool Campylobacter Culture - Final
No Campylobacter species isolated.
10/22/24 10:11 Feces/Stool Shiga Toxin Test - Final
No E. coli Shiga Toxin 1 or 2 detected.
10/22/24 10:11 Feces/Stool C. difficile GDH Antigen & Toxins - Final
Negative for toxigenic C.difficile
10/22/24 10:11 Feces/Stool - Final
Negative for Norovirus GI and GII.
[2024-10-25 11:41] LABS: Glucose - Point of Care 105 mg/dl (70-99)
[2024-10-25] MEDS: CARAFATE 1 GRAM PO ×2 (12:38→17:15)
[2024-10-25 12:51] LABS: Troponin I 0.044 ng/ml
--- NOTE | 2024-10-25 13:05 | CM ---
Patient seen at bedside. Patient stated that she had a video swallow today and did not have any information. CM will continue to follow for discharge planning needs.
Plan; home with no needs; watch for VN needs.
[2024-10-25 16:19] LABS: Glucose - Point of Care 119 mg/dl (70-99)
[2024-10-25] MEDS: NOVOLOG FLEXPEN-LOW RESISTANCE SC (16:26)
[2024-10-25] MEDS: LOVENOX 40 MG SC (17:17)
[2024-10-25 17:56] LABS: Troponin I 0.034 ng/ml
[2024-10-25] MEDS: ZOFRAN 4 MG IV (19:30)
[2024-10-25] MEDS: XANAX 0.5 MG PO (20:46)
[2024-10-25] MEDS: FLEXERIL 10 MG PO (21:49)
[2024-10-25] MEDS: NON-FORMULARY ITEM 3 PATCH TOPICAL (21:50)
[2024-10-25] MEDS: PEPCID 40 MG PO (21:50)
[2024-10-25] MEDS: ARICEPT 10 MG PO (21:50)
[2024-10-25] MEDS: REMERON 45 MG PO (21:50)
[2024-10-25 21:54] LABS: Glucose - Point of Care 103 mg/dl (70-99)
[2024-10-26] MEDS: UNASYN IV ×4 (00:01→18:15)
[2024-10-26] MEDS: XANAX 0.5 MG PO (02:41)
[2024-10-26 03:35] VITALS: BP 149/72
[2024-10-26] MEDS: SYNTHROID 50 MCG PO (05:34)
[2024-10-26 06:00] VITALS: BMI 31.5
[2024-10-26 06:16] LABS: Hematocrit 32.1 % (37.0-47.0); Hemoglobin 10.6 g/dL (12.0-16.0); Mean Corpuscular Volume 87.9 fL (81.0-99.0); Platelet Count 191 10^3/uL (130-400); Red Blood Cell Count 3.65 10^6/uL (4.20-5.40); Red Cell Dist. Width 13.5 % (11.5-14.5); White Blood Cell Count 5.8 10^3/uL (4.8-10.8)
--- NOTE | 2024-10-26 06:40 | W.PN.HOSP.TC ---
Today's Communication/Plan
-
cont abx
steroids as per Pulm
diet as per GI
wean O2 as tolerated
cont diuresis
Assessment / Plan
Assessment / Plan
Physical Exam
General: Comfortable and Conversant
HEENT: Anicteric moist mucous membranes
Respiratory: crackles on auscultation
Cardiac: S1/S2 and Regular Rhythm
GI: Soft and nontender bowel sounds present
Musculoskeletal: No Clubbing and No Cyanosis
Skin: Warm and Dry
Neuro: Awake, Alert and Oriented
Psych: Calm
69F CVA, HTN, DM, Bipolar Disorder, Chronic Pain and Recurrent Pneumonia p/w vomiting and diarrhea. Reported high volume diarrhea and inability to tolerate oral fluids. Upon arrival to the ED she was found to be febrile with temp 100.7F. Denied
sick contacts, recent travel or usual food intake, but is maintained on chronic antibiotics for recurrent pneumonia.
Sepsis secondary to Viral Gastroenteritis
-Norovirus CDiff neg
-Continue supportive care
-Continue IVFs
-Continue anti-emetics
-clear liquid advanced to Low residue
Chest pain 10/24/24 unclear etiology suspected Esophageal related
sternal, exacerbated with swallowing, improvement noted with once maalox
no significant changes noted on EKG
started carafate ACHS but no significant improvement noted since discontinued
Barium Esophagram appreciated esophageal dysmotility, likely source of recurrent pneumonias
GI eval appreciated low fat low residue diet, speech eval, cont PPI BID, outpt esophageal manometry testing
Mild Troponin elevation likely Non-ischemic FL
-trended to peak 0.044 since trended down
Associate Multifocal PNA
Recurrent Pneumonia
-elevated Procal
-Continue VEST therapy
-Continue azithromycin as prior to admission
-Consult Pulmonary appreciated Prednisone started
-cont empiric Unasyn
Acute Hypoxia
-wean O2 supplementation as tolerated
-Check ECHO
Hx CVA/TIA
-Continue Plavix
Essential Hypertension
-Continue valsartan with holding parameters
Hyperlipidemia
-Continue atorvastatin
Diabetes Mellitus, Type II
-Monitor sugars and continue coverage insulin
Asthma, no acute exacerbation
-Continue Symbicort and Spiriva
Hypothyroidism
-Continue levothyroxine
Bipolar Disorder / Schizoaffective Disorder
-Continue alprazolam, mirtazapine
Dementia
-Continue Aricept and Namenda
Chronic Pain Syndrome with Opioid Dependence secondary to Fibromyalgia and Ankylosing Spondylitis
-Continue hydrocodone/acetaminophen
-Continue cyclobenzaprine, tizanidine and lidocaine cream/patch
GERD
-Continue Pepcid and Protonix
Chronic Lower Extremity Lymphedema
-Held Lasix in setting of GI Illness, diarrhea since resolved
-home Lasix resumed
Obesity s/p Bariatric Surgery
DVT Proph: Lovenox
Code Status: DNR/DNI
I spent a total of 50 minutes with the patient or on the floor. More than 50% of this time involved counseling and coordination of care.
Anticipated Discharge: 24 - 48 hours
Subjective/Interval History
-
Date of Service: October 26, 2024
continues to report improvement in chest discomfort. Noted back on oxygen supplementation 2L, required overnight due to shortness of breath.
Objective Data
-
Labs:
Laboratory Results
10/26/24
05:44
WBC 5.8
Hgb 10.6 L
Hct 32.1 L
Plt Count 191
Sodium Pending
Potassium Pending
Chloride Pending
Carbon Dioxide Pending
BUN Pending
Creatinine Pending
Glucose Pending
Calcium Pending
Vital Signs:
Vital Signs
Temp Pulse Resp BP Pulse Ox
97.9 F 89 20 149/72 93
10/26/24 03:35 10/26/24 03:35 10/26/24 03:35 10/26/24 03:35 10/26/24 03:35
I&O
10/24/24 10/25/24 10/26/24
06:59 06:59 06:59
Intake Total 4000 / 4000 3130 / 3130 2009
Output Total 300 / 300
Balance 3700 / 3700 3130 / 3130 2009
[2024-10-26 06:42] LABS: Blood Urea Nitrogen 6 mg/dl (7-17); Calcium 8.2 mg/dl (8.4-10.2); Carbon Dioxide 28 mmol/L (22-30); Chloride 104 mmol/L (98-107); Estimated Creatinine Clearance 90 ml/min; Glucose 98 mg/dl (70-99); Magnesium 1.8 mg/dl (1.6-2.3); Phosphorus 3.5 mg/dl (2.5-4.5); Potassium 4.9 mmol/L (3.5-5.1); Sodium 138 mmol/L (135-145); eGFR > 60.00
[2024-10-26 07:00] VITALS: BP 151/82
[2024-10-26 07:48] LABS: Glucose - Point of Care 118 mg/dl (70-99)
[2024-10-26] MEDS: NORCO 5/325 1 TABLET PO ×4 (08:30→21:15)
[2024-10-26] MEDS: DELTASONE 40 MG PO (08:30)
[2024-10-26] MEDS: COGENTIN 2 MG PO ×2 (08:30→21:15)
[2024-10-26] MEDS: LIPITOR 80 MG PO (08:30)
[2024-10-26] MEDS: ROXICODONE 5 MG PO ×4 (08:30→21:17)
[2024-10-26] MEDS: ANTIVERT 25 MG PO ×3 (08:31→21:15)
[2024-10-26] MEDS: DIOVAN 20 MG PO (08:31)
[2024-10-26] MEDS: SPIRIVA RESPIMAT 2.5 MCG INH (08:36)
[2024-10-26] MEDS: PROTONIX 40 MG PO ×2 (08:37→21:15)
[2024-10-26] MEDS: PLAVIX 75 MG PO (08:37)
[2024-10-26] MEDS: KCL 20 MEQ PO ×2 (08:37→21:17)
[2024-10-26] MEDS: SYMBICORT 160/4.5 MCG INHALER INH (08:37)
[2024-10-26] MEDS: NAMENDA 10 MG PO ×2 (08:38→21:16)
[2024-10-26] MEDS: LASIX 40 MG PO (08:42)
[2024-10-26] MEDS: ZANAFLEX 2 MG PO ×2 (08:45→21:14)
[2024-10-26] MEDS: NOVOLOG FLEXPEN-LOW RESISTANCE SC (10:08)
[2024-10-26] MEDS: SPIRIVA RESPIMAT 2.5 MCG 2 PUFF INH (10:14)
[2024-10-26] MEDS: SYMBICORT 160/4.5 MCG INHALER 2 PUFF INH ×2 (10:14→20:30)
--- NOTE | 2024-10-26 10:25 | CM ---
Patient seen at bedside. Patient indicated that she is unsure of plan for today and will update CM about discharge. Patient declined VN supports at this time. CM will continue to follow for discharge planning needs.
[2024-10-26 11:00] VITALS: BP 125/69
[2024-10-26 11:13] LABS: Glucose - Point of Care 182 mg/dl (70-99)
--- NOTE | 2024-10-26 13:04 | CON.GI ---
Addendum entered and electronically signed by Zenia Olmstead MD 10/26/24 16:54:
I saw and examined the patient.
The [employer] or PA's note was reviewed and I agree with the note.
Comment: 69-year-old female with history of Polina-en-Y gastric bypass in 2008 with iron deficiency anemia followed by hematology with prior iron infusions in the past, ankylosing spondylitis, with multiple episodes over 2022 and 2023 for pneumonia
with concern of esophageal etiology. She now presents with complaints of nausea, vomiting and diarrhea and also recurrent pneumonia. She reports occasional choking and coughing during meals. Difficulties with swallowing bread and meats sometimes
if she does not chew it well. No odynophagia. Has heartburn and takes pantoprazole twice a day and Pepcid at bedtime. Also has some trouble swallowing pills.
She had upper GI study in July 2024 that was unremarkable, Double contrast esophagram showing airway aspiration of small amount of thick barium during exam, prominent cricopharyngeus causing dorsal indentation on the posterior cervical esophagus
without obstruction increased tertiary contractions in the mid and distal esophagus with delay in the barium contrast suggesting esophageal dysmotility. Mild mucosal irregularity noted suggesting esophagitis as well. During her previous admission
she had a video swallow examination on 07/10/2024 for concern for aspiration pneumonia which showed no evidence of aspiration. She saw Dr. Rodrigez as outpatient-had a follow-up appointment again couple of days ago but was admitted to the hospital..
She does take narcotics. She has erratic bowel pattern with either constipation or diarrhea. She has history of CVA on Plavix.
# Aspiration pneumonia -possibly related to esophageal dysmotility with component of prominent cricopharyngeus causing some dysphagia
Might benefit from speech pathology recommendations regarding the diet
Low fat and low residue diet given history of gastric bypass-this is to prevent further reflux of gastric contents into the esophagus
-- Continue PPI twice a day
Will need outpatient esophageal manometry testing to evaluate the esophageal dysmotility but until then diet modification to prevent further aspiration pneumonia.
Limiting narcotics will help as she does have chronic erratic bowels as well.
At home.
Once the pneumonia clears up, she will need to be seen in the office as outpatient and possible consideration of upper endoscopy at that time given mild mucosal irregularity suggesting esophagitis on recent esophagram.
Will sign off, please call back if needed.
Original Note:
Consultation
-
Date/Time Consultation Requested: 10/25/242039
Date/Time Consultation Performed: 10/26/24 1300
Requesting Provider: Carlo Andrade MD
Performing Provider: JUDITH Laguerre, Zenia Olmstead MD
Reason for Consultation: dysphagia recurrent PNA
Medical History
Chief Complaint / HPI
Chief Complaint: GERD, dysphagia
History of Present Illness:
69-year-old female with past medical history of asthma, Iron deficiency anemia followed by hematology with prior IV infusions in the past, ankylosing spondylitis, bipolar, dementia, fibromyalgia, chronic pain, hyperlipidemia, GERD, IgG 3 deficiency,
prior gastric bypass 2008 with EGD/colon at [facility] in 2018 recalls as normal per patient for hx of JOEL, chronic lymphedema, hypothyroidism and chronic hyponatremia with 4 episodes in 2022 and multiple episodes 2022 and 2023 for recurrent PNA
and resp insufficiency. She has completed VSE in June with concern for esophageal component of symptoms. She was seen by GI during July admission and UGI was completed with normal results without complication of bypass. After evaluation
she had another admission in August and now presents again nausea/vomiting/diarrhea with concern for GI virus and noted with recurrent PNA. 10/25 repeat esophagram was completed with no esophageal obstruction but diffuse distention, delayed
transit and tertiary contraction for concern of esophageal dysmotility. Also note prior gastric bypass with mild distention of proximal jejunal loops and severe b/l PNA. In review with patient she had feeling of dysphagia with solids and liquids
and has been chronic for some time but no hematemesis or recent wt loss.
Pt admits to chronic GERD since gastric bypass on PPi and Pepcid prior to admission. She also admits to nausea at times. She does have some constipation and will have diarrhea even with smallest doses of laxative. + wt loss in 2020 down to
120 lb now up to 180 lbs ? depression related and did require peg for failure to thrive. She denies NSAID use. Otherwise denies rectal bleeding or vomiting. Pt is on chronic narcotics but no NSAID use.
Past Medical History
Past Medical History: Asthma, CVA, GERD, HTN, Hypercholesterolemia, Hypothyroidism, Psychiatric (anxiety/depression, schizoaffective disorder, bipolar, dementia ) and Other (Asthma, recurrent PNA, ankylosing spondylitis, fibromyalgia, chronic pain,
hyperlipidemia, GERD, chronic lymphedema, hypothyroidism, chronic hyponatremia, Iron deficiency anemia, IgG3 deficiency)
Past Surgical History: Cholecystectomy, Orthopedic (right knee replacement ), Tonsilectomy and Other (Gastric bypass, hysterectomy)
Social History
Tobacco: Non-Smoker
Alcohol: None
Drug: Marijuana (in past)
Personal:
Living: With Family
Family History
Family History: Other (No family history of gastrointestinal malignancy or inflammatory bowel disease)
Allergies / Home Medications
Allergy/AdvReac Type Severity Reaction Status Date / Time
celecoxib [From Celebrex] Allergy Unknown Verified 10/22/24 08:14
hydrochlorothiazide Allergy Unknown Verified 10/22/24 08:14
NSAIDS (Non-Steroidal Allergy Gastric Verified 10/22/24 08:14
Anti-Inflamma Bypass
pregabalin [From Lyrica] Allergy Unknown Verified 10/22/24 08:14
promethazine Allergy Unknown Verified 10/22/24 08:14
zolpidem [From Ambien] Allergy Unknown Verified 10/22/24 08:14
�Medication �Instructions �Recorded
famotidine 40 mg tablet 40 mg PO HS Gastrointestinal Issue 05/19/15
atorvastatin 80 mg tablet 80 mg PO DAILY High Cholesterol 01/10/23
benzonatate 200 mg capsule 200 mg PO TIDPRN PRN cough 01/10/23
clopidogrel 75 mg tablet 75 mg PO DAILY Blood Clot 01/10/23
Prevention/Tx
donepezil 10 mg tablet 10 mg PO HS Mental Health/Anxiety 01/10/23
levalbuterol tartrate 45 2 inh inhalation R Q6HPRN PRN sob 01/10/23
mcg/actuation aerosol inhaler ##0
(Xopenex HFA)
levothyroxine 50 mcg tablet 50 mcg PO DAILY Thyroid 01/10/23
lidocaine 1.8 % topical patch 3 patch topical DAILYPRN PRN b/l 01/10/23
(ZTlido) knee,hip and/or lower back
mirtazapine 45 mg tablet 45 mg PO HS Mental Health/Anxiety 01/10/23
pantoprazole 40 mg tablet,delayed 40 mg PO BID Gastrointestinal Issue 01/10/23
release (Protonix)
valsartan 40 mg tablet 20 mg PO DAILY Blood Pressure 01/10/23
cyanocobalamin (vitamin B-12) 1,000 mcg PO Q48H Supplement 05/14/23
1,000 mcg tablet
cyclobenzaprine 10 mg tablet 10 mg PO HS Muscle Spasms 05/14/23
ergocalciferol (vitamin D2) 1,250 1,250 mcg PO WE Supplement 05/14/23
mcg (50,000 unit) capsule
hydrocodone 10 mg-acetaminophen 1 tab PO QID pain 05/14/23
325 mg tablet
lidocaine-prilocaine 2.5 %-2.5 % 1 applic topical Q8HPRN PRN 05/14/23
topical cream breakthrough mild pain
memantine 10 mg tablet 10 mg PO BID memory/cognition 05/14/23
ondansetron 4 mg disintegrating 4 mg PO BIDPRN PRN nausea 05/14/23
tablet
furosemide 40 mg tablet 80 mg PO TUSA Fluid 07/13/23
Retention/Swelling
tizanidine 2 mg tablet 2 mg PO BID Muscle Spasms 07/13/23
budesonide-formoterol HFA 160 2 inh inhalation R BID 10/08/23
mcg-4.5 mcg/actuation aerosol Lung/Breathing Issues
inhaler (Symbicort)
cranberry 500 mg capsule 4,200 mg PO BID Supplement 03/22/24
pregabalin 25 mg capsule (Lyrica) 25 mg PO TIDPRN PRN neuropathy 03/22/24
potassium chloride 20 mEq 20 meq PO BID Electrolyte Repletion 07/07/24
tablet,extended
release(part/cryst) (Klor-Con M)
alprazolam 0.5 mg tablet 0.5 mg PO QIDPRN PRN anxiety 07/23/24
furosemide 40 mg tablet (Lasix) 40 mg PO SUMOWETHFR Fluid 07/23/24
Retention/Swelling
meclizine 25 mg tablet 25 mg PO TID vertigo/dizziness 08/28/24
tiotropium bromide 18 mcg capsule 1 cap inhalation R DAILY 08/28/24
with inhalation device (Spiriva Lung/Breathing Issues
with HandiHaler)
azithromycin 250 mg tablet 250 mg PO Q48H INFECTION 10/22/24
benztropine 2 mg tablet 2 mg PO BID Neurological Condition 10/22/24
Review of Systems
-
History Source: Patient
Constitutional: Reports Weight Loss (in past now improved ) and Fatigue
EENT: Reports No Symptoms
Respiratory: Reports No Symptoms
Cardiac: Reports No Symptoms
Abdomen/GI: Reports Diarrhea, Constipated and Other (chronic GERD and dysphagia )
: Reports No Symptoms
Musculoskeletal: Reports No Symptoms
Skin: Reports No Symptoms
Neurological: Reports Weakness
Endocrine: Reports No Symptoms
Vital Signs
Temp Pulse Resp BP Pulse Ox
97.7 F 82 17 125/69 93
10/26/24 11:00 10/26/24 11:00 10/26/24 11:00 10/26/24 11:00 10/26/24 11:00
Physical Exam
Exam
General: Well Developed, Well Nourished and No Apparent Distress
HEENT: Normocephalic and Anicteric
Respiratory: Other (decreased bases minimal wheezing )
Cardiac: Regular Rhythm
GI: Soft, Non Tender and Non Distended
Musculoskeletal: No Clubbing and No Cyanosis
Skin: Warm and Dry
Neuro: Alert, AO x 3 and Other (chronic thick speech , continuous movement during exam)
Psych: Calm
Results
WBC 5.8 10^3/uL (4.8-10.8) 10/26/24 05:44
Hgb 10.6 g/dL (12.0-16.0) L 10/26/24 05:44
Hct 32.1 % (37.0-47.0) L 10/26/24 05:44
MCV 87.9 fL (81.0-99.0) 10/26/24 05:44
Plt Count 191 10^3/uL (130-400) 10/26/24 05:44
Sodium 138 mmol/L (135-145) 10/26/24 05:44
Potassium 4.9 mmol/L (3.5-5.1) 10/26/24 05:44
Chloride 104 mmol/L (98-107) 10/26/24 05:44
Carbon Dioxide 28 mmol/L (22-30) 10/26/24 05:44
BUN 6 mg/dl (7-17) L 10/26/24 05:44
Creatinine 0.7 mg/dL (0.6-1.0) 10/26/24 05:44
Calcium 8.2 mg/dl (8.4-10.2) L 10/26/24 05:44
Total Bilirubin 1.0 mg/dl (0.2-1.3) 10/23/24 06:24
AST 21 U/L (14-36) 10/23/24 06:24
ALT 20 U/L (0-35) 10/23/24 06:24
Alkaline Phosphatase 84 U/L (38-126) 10/23/24 06:24
Lipase 29 U/L (23-300) 10/22/24 08:15
Diagnostic Image Results:
07/10/24
VIDEOFLUOROSCOPIC SWALLOWING EXAMINATION (VSE) completed. Mild oral dysphagia. Pharyngeal phase of swallow WFL. No penetration/aspiration noted during study. Esophageal sweep demonstrated residue without backflow.
Pt with recurrent PNA, but largely functional oropharyngeal swallow noted. Question whether related to esophagus. Pt is aware that recommendation after VSE in March was for GI consult. She has an appointment at the end of this month.
Recommend:
(1) Regular solids/thin liquids with pt choosing softer items
(2) General aspiration precautions
(3) Esophageal precautions
(4) Meds as tolerated
10/22/24 CT Chest/abd/pel W Iv Cont
1. Multifocal pneumonia in both lungs, left greater than right.
2. CT findings suspicious for a mild enterocolitis, likely inflammatory or infectious.
10/25/24 esophagram
1. No fluoroscopic evidence for esophageal obstruction.
2. Mild diffuse esophageal distention, delayed esophageal transit, and increased tertiary contractions in the esophagus consistent with an ESOPHAGEAL MOTILITY DISORDER.
3. Mild diffuse esophagitis.
4. Mild airway aspiration of thick barium contrast.
5. Previous gastric bypass surgery (gastrojejunal anastomosis) with mild distention of proximal jejunal small bowel loops.
6. SEVERE BILATERAL PNEUMONIA.
Prior GI Procedures:
EGD: Patient states she had an EGD 2019 years ago, performed at [facility]. States was within normal limits
Colonoscopy: Patient states she had colonoscopy 2 years 2019 performed at [facility]. States this was within normal limits. Denies any history of polyp
Assessment / Plan
-
69-year-old female with past medical history of asthma, Iron deficiency anemia followed by hematology with prior IV infusions in the past, ankylosing spondylitis, bipolar, dementia, fibromyalgia, chronic pain, hyperlipidemia, GERD, IgG 3 deficiency,
prior gastric bypass 2009 with EGD/colon at [facility] in 2019 recalls as normal per patient for hx of JOEL, chronic lymphedema, hypothyroidism and chronic hyponatremia with 4 episodes in 2022 and multiple episodes 2022 and 2024 for recurrent PNA
and resp insufficiency. She has completed VSE in June with concern for esophageal component of symptoms. She was seen by GI during July admission and UGI was completed with normal results without complication of bypass. After evaluation
she had another admission in August and now presents again nausea/vomiting/diarrhea with concern for GI virus and noted with recurrent PNA. 10/25 repeat esophagram was completed with no esophageal obstruction but diffuse distention, delayed
transit and tertiary contraction for concern of esophageal dysmotility. Also note prior gastric bypass with mild distention of proximal jejunal loops and severe b/l PNA. In review with patient she had feeling of dysphagia with solids and liquids
and has been chronic for some time. No hematemesis recent wt loss.
Impression:
Dysphagia
Odynophagia
recurrent PNA
VSE with concern for esophageal retention, f/u esophagram 10/25 with concern for esophageal dymotility
-nausea/vomiting/diarrhea on admission
-hx gastric bypass
-hx JOEL
other med problems:
-asthma
-ankylosing spondylitis
-hx failure to thrive and prior TPN/peg
-bipolar
-dementia
-fibromyalgia
-chronic hampton with chronic narcotic use
-GERD
-IGG deficiency
-chronic lymphedema
-hypothyroidism
PLAN:
etiology of recurrent PNA related to esophageal retention/ dysmotility as noted on follow up esophagram vs back up from prior noted gastric bypass, chronic GERD vs other
repeat esophagram with concern or esophageal dysmotility
t/c OP manometry
cont Low residue diet
food well chewed and chopped with plenty of water
stay upright after eating
pt reviewed she has hx failure to thrive ? depression triggered with prior TPN and peg -- she states would not want any alternative feeding if resp issues do not improve
add iron studies with chronic anemia likely in setting of bypass- as pt late on hematology follow up with multiple admissions
pt was scheduled 10/[address] Rodrigez follow up but was in hospital -- message sent to reschedule OP visit
-
-
Thank you for consultation and allowing me to participate in the patient's care. Please call the [employer] equipment operator GI physician during the after hours with any questions or concerns.
[2024-10-26] MEDS: NOVOLOG FLEXPEN-LOW RESISTANCE 1 UNITS SC ×2 (13:57→18:13)
--- NOTE | 2024-10-26 14:29 | W.PN.PUL.V3 ---
Today's Communication / Plan
-
.
Esophageal motility disorder noted-likely cause of recurrent pneumonias.
Prednisone 40 mg with fairly rapid taper.
Continue nebulizers.
Antibiotics
Assessment
-
69-year-old with a history of asthma followed by Dr. Szymanski, suspected silent aspiration, obstructive sleep apnea, hypertension, hyperlipidemia, diabetes, CVA, cognitive impairment as well as anxiety/depression/schizoaffective disorder who
presented with nonproductive cough, shortness of breath after recent hospitalization for community-acquired pneumonia 07/08/2024 and then readmitted with chest pain and pneumonia- 08/29/24 and now readmitted with vomiting, diarrhea, noted to have
pneumonia-pulmonary again consulted for pneumonia 10/23/24. .
Recurrent pneumonia-severe multifocal left-sided community acquired with recent hospitalization and aspiration risk
Nausea/vomiting and diarrhea
Gastroenteritis-Presumed norovirus
Chronic cough
Atypical chest pain
Aspiration risk
Leukocytosis.
Zkuchi-uebcotygky-xoeqbwmqgx 10.2
Hyperglycemia
Conditions present prior to admission:
Hospitalization 07/2024-recurrent pneumonia left upper lobe
Hospitalization March 2024-right lower lobe pneumonia-aspiration suspected
Hospitalization 06/2024-right lower lobe pneumonia.
Hospitalization 08/29/24-chest pain and pneumonia
Asthma-followed by Dr. Szymanski-maintained on Symbicort and Xopenex as well as Aurea, Astelin and Flonase
Pulmonary nodule-7-8 mm stable
Recurrent pneumonia-aspiration suspected..
Esophageal dysmotility
IgG3 deficiency
EVELINA resolved with weight loss.
Obesity/bariatric surgery.
Hypertension.
Hyperlipidemia.
Diabetes.
Hypothyroid.
History CVA.
Anxiety/depression/schizoaffective disorder.
Cognitive dysfunction.
GERD.
Vertigo.
Diverticulosis.
Cholecystectomy. Right knee repair. Tonsillectomy. Carpal tunnel 2020 11/2022. Cataract. Glaucoma. Hysterectomy.
Plan
Respiratory decompensation in the form of a chronic cough and persistent but slightly improved opacification on chest x-ray could be consistent with recurrent silent aspiration pneumonia, however, repetitive workup reveals no evidence for
aspiration-noninfectious airspace opacification differential would also include cryptogenic organizing pneumonia, etc.
Supplemental oxygen as needed-attempt to wean
Assess discharge supplemental oxygen needs-currently on 2 L-95% saturation
Mucolytic's
Aspiration precautions
Previous Speech therapy evaluation-evaluation noted, regular diet with thin liquids, video swallow if silent aspiration suspected
Video swallow also noted.
Esophagram 10/25/24--no obstruction, mild diffuse esophageal distention, delayed esophageal transit consistent with esophageal motility disorder.
GI following-correspondence reviewed
No diet modifications required
Nebulizers as needed.
Symbicort 160/4.5 and Spiriva continues
Mucus clearing devices
Incentive spirometry
Flutter.
Vest therapy continues twice daily-patient feels benefit.
Chest physiotherapy left base with postural drainage
Steroids added previous admission for persistent wheezing--and she responded well-if she continues to have wheezing will add steroids-fairly rapid taper
CT chest summarized below
Consider bronchoscopy if recurrent infiltrates without clear etiology-hold off for now.
Steroids will be initiated for mild persistent wheezing and unexplained pulmonary infiltrates-possible cryptogenic organizing pneumonia-hold off for now with minimal wheezing
IgG total 07/26/2024-low 574
IgM normal 93
Immunoglobulin levels 07/26/2024- IgG 3-low at 9.
IgE-51
Consider outpatient replacement therapy with recurrent infections.
Atypical chest pain-troponin and EKG negative.
Hospitalist aware-trying Maalox
Cultures reviewed.
MRSA screen negative
Influenza negative
Blood cultures negative.
C. difficile negative.
Stool cultures negative thus far
Previously, she was unable to produce sputum.
Empiric antibiotics initiated--Unasyn and azithromycin
Ncu-bynmvlohrh-fomprnmn at 5.47
Previous barium swallow/upper GI series completed without evidence of dysmotility and without evidence for complications of the gastric bypass..
Previous GI evaluation- noted
Follow hemoglobin
Transfuse if needed
Monitor blood sugar
Insulin supplementation if needed
DVT prophylaxis-on subcu heparin
GI prophylaxis-on Pepcid at night as well as pantoprazole
Nutrition with aspiration precautions
Early mobilization
Reviewed with nursing as well as primary team
Follow-up pulmonary appointment
Patient was last seen by Dr. Szymanski 03/07/2024 And then an appointment with Janki Lopez NP after recent hospitalization on 10/19/24.-consider gamma globulin replacement therapy or even Biologics and requires radiographic follow-up in consideration
towards chronic immunosuppression/prednisone. If steroid responsive pulmonary process
Diagnostic data:
CXR 10/29/22: New areas of linear interstitial airspace disease in the right middle lobe and basilar portion of the left lower lobe suggesting interstitial pneumonia/bronchiolitis
Chest x-ray 03/02/2024-��NAD
Chest x-ray 03/22/20245982-xbrhp-xyknl pneumonia, no large parapneumonic effusion is appreciated
Chest x-ray 07/07/2024-left lower lobe pneumonia
Chest x-ray 07/23/2024-persistent patchy opacification in the left lung with some improvement compared to 07/10/2024, mildly elevated right hemidiaphragm
Chest x-ray 08/28/24-moderate amount of asymmetrical opacification left upper lobe and lower lobes consistent with pneumonia increased since 07/23/24, .
Chest x-ray 10/22/24-left basilar pneumonia
CT scan08/09/2023: Reviewed,Jermaine Stanley 08/24/2023 08:54:12 AM >��1. Stable left lisa-fissural nodule, likely benign.2.� Interval resolution of previously seen left upper lobe groundglass densities.��������-��������CXR 05/16/2023: Right
upper lobe pneumonia appears unchanged. Linear foci in the left lower lobe may be subsegmental atelectasis.��������-��������
CT chest 04/12/2023: Previous opacity/pneumonia in the right lower lobe has resolved. Mild scarring versus atelectasis in the mid to lower lung zones. A perifissural nodule in the left mid to lower lung zone has remained stable. Multiple subtle
groundglass nodular opacities have developed in the left upper lobe measuring up to 8.4 mm.��������-
VSE 01/12/2023: Upper laryngeal penetration. No aspiration.��������-��������
CT chest 01/10/2023:showed no evidence for central pulmonary embolism. Patchy right lower lobe opacification, most likely pneumonia. Prominence of pulmonary interstitium some vague groundglass opacities bilaterally, sparing the Overload. Mild chronic
fiber changes.��������-��������
CT chest01/10/2023: showed no evidence for acute pulmonary embolism.Right lower lobe airspace disease, likely pneumonia, new compared to November 2022. Mild bilateral groundglass opacities.Stable left lower lobe pulmonary nodule.��������-��������
CT chest 2022:Reviewed, showed 8 mm pleural-based pulmonary nodule slightly increased compared to prior examinations.����������������-��������
CT chest 05/08/2022: Solid pleural-based 8 mm left lower lobe pulmonary nodule. Appearance of slight increase in size. However this can be due to the location and the slice image. Moderate right upper lobe and right lower lobe atelectasis versus
scarring. Mild lingular and right middle lobe atelectasis versus scarring. Gallbladder has been removed.
CT sinus 03/14/2024-unremarkable CT of the sinuses
CT chest 04/24/2024-resolution of right pneumonia, low lung volumes with scattered bilateral subsegmental atelectasis, stable 7 mm solid pulmonary nodule,moderate elevation of right hemidiaphragm
CT chest 08/28/24. -severe airspace consolidation left upper lobe and lower lobe increased, but slightly different distribution than 07/25/24, mild to moderate left hilar and left sided mediastinal lymphadenopathy.
CT chest, abdomen and pelvis 10/22/24-multifocal pneumonia in both lungs, left greater than right, mild enterocolitis
Lower extremity ultrasound 03/22/2024-no evidence for DVT
PFT 08/24/2023-FEV1 2.16-86%, FVC 2.78-84%, TLC 76%, RV 55%, DLCO 72%, DLCO/VA 89%
Subjective Data
-
Date of Service:
Date of Service: October 26, 2024
Chief Complaint: Pulmonary Follow Up and Dyspnea Follow Up
Subjective:
Complains of a mild cough, no chest pain, shortness of breath, abdominal pain
Review of Systems
General: Other ( per HPI)
Objective Data
Data Reviewed
Vital Signs / I&O:
Vital Signs
Temp Pulse Resp BP Pulse Ox
97.7 F 82 17 125/69 93
10/26/24 11:00 10/26/24 11:00 10/26/24 11:00 10/26/24 11:00 10/26/24 11:00
Intake and Output
10/25/24 10/26/24 10/27/24
06:59 06:59 06:59
Intake Total 3130 / 3130 2009
Balance 3130 / 3130 2009
SaO2: 93
Nasal Cannula flow liters per minute: 2
Physical Exam
General: Respiratory Distress (n) and Comfortable
HEENT: Normocephalic and Anicteric
Cardiovascular: Regular Rhythm and Murmur
Respiratory: Wheeze ( few forced expiratory), Crackles ( basilar), Rhonchi (n), Non-Labored Respirations, Accessory Resp Muscle Use (n) and Stridor
GI: Soft, Non Distended and Non Tender
Neurology: Awake and No Motor Deficits
Skin: Warm, Good Color, Cyanosis (n), Jaundice (n) and Rash (n)
Labs/Micro/Reports
Lab Data
10/26/24 05:44
10/26/24 05:44
Microbiology
10/22/24 13:51 Blood/Venous Blood Culture - Preliminary
No Growth in 72 hours- Final report to follow
10/22/24 13:51 Blood/Venous Blood Culture - Preliminary
No Growth in 72 hours- Final report to follow
10/22/24 10:11 Feces/Stool Salmonella/Shigella Culture - Final
No Salmonella, Shigella, Aeromonas or Plesiomonas species
isolated.
10/22/24 10:11 Feces/Stool Campylobacter Culture - Final
No Campylobacter species isolated.
10/22/24 10:11 Feces/Stool Shiga Toxin Test - Final
No E. coli Shiga Toxin 1 or 2 detected.
10/22/24 10:11 Feces/Stool C. difficile GDH Antigen & Toxins - Final
Negative for toxigenic C.difficile
10/22/24 10:11 Feces/Stool - Final
Negative for Norovirus GI and GII.
[2024-10-26 15:07] LABS: Iron 30 ug/dl (37-170)
[2024-10-26 15:17] LABS: Percent Saturation 10 % (20-50); Total Iron Binding Capacity 292 ug/dl (265-497)
[2024-10-26 15:19] VITALS: BP 129/67
[2024-10-26] MEDS: ZITHROMAX 250 MG PO (16:59)
[2024-10-26 17:12] LABS: Glucose - Point of Care 167 mg/dl (70-99)
[2024-10-26] MEDS: LOVENOX 40 MG SC (18:10)
[2024-10-26 19:00] VITALS: BP 107/79
[2024-10-26] MEDS: FLEXERIL 10 MG PO (21:15)
[2024-10-26] MEDS: ARICEPT 10 MG PO (21:16)
[2024-10-26] MEDS: PEPCID 40 MG PO (21:16)
[2024-10-26] MEDS: REMERON 45 MG PO (21:17)
[2024-10-26 21:28] LABS: Glucose - Point of Care 145 mg/dl (70-99)
[2024-10-26 23:00] VITALS: BP 130/70
[2024-10-27] MEDS: NON-FORMULARY ITEM 3 PATCH TOPICAL ×2 (00:05→21:51)
[2024-10-27] MEDS: UNASYN IV ×5 (00:06→23:21)
[2024-10-27] MEDS: XANAX 0.5 MG PO ×2 (00:14→20:42)
[2024-10-27 03:00] VITALS: BP 143/61
[2024-10-27 05:35] VITALS: BMI 31.5
[2024-10-27] MEDS: SYNTHROID 50 MCG PO (05:36)
[2024-10-27 06:35] LABS: Hematocrit 30.3 % (37.0-47.0); Hemoglobin 10.1 g/dL (12.0-16.0); Mean Corp Hgb Conc. 33.3 g/dL (33.0-37.0); Mean Corpuscular Hgb 29.2 pg (27.0-31.0); Mean Corpuscular Volume 87.6 fL (81.0-99.0); Mean Platelet Volume 9.5 fL (7.4-10.4); Platelet Count 215 10^3/uL (130-400); Red Blood Cell Count 3.46 10^6/uL (4.20-5.40); Red Cell Dist. Width 13.5 % (11.5-14.5); White Blood Cell Count 6.6 10^3/uL (4.8-10.8)
--- NOTE | 2024-10-27 06:51 | W.PN.HOSP.TC ---
Today's Communication/Plan
-
cont abx
steroids as per Pulm
cont diuresis
ECHO
Assessment / Plan
Assessment / Plan
Physical Exam
General: Comfortable and Conversant
HEENT: Anicteric moist mucous membranes
Respiratory: crackles on auscultation
Cardiac: S1/S2 and Regular Rhythm
GI: Soft and nontender bowel sounds present
Musculoskeletal: No Clubbing and No Cyanosis
Skin: Warm and Dry
Neuro: Awake, Alert and Oriented
Psych: Calm
69F CVA, HTN, DM, Bipolar Disorder, Chronic Pain and Recurrent Pneumonia p/w vomiting and diarrhea. Reported high volume diarrhea and inability to tolerate oral fluids. Upon arrival to the ED she was found to be febrile with temp 100.7F. Denied
sick contacts, recent travel or usual food intake, but is maintained on chronic antibiotics for recurrent pneumonia.
Sepsis secondary to Viral Gastroenteritis
-Norovirus CDiff neg
-Continue supportive care
-Continue IVFs
-Continue anti-emetics
-clear liquid advanced to Low residue
Chest pain 10/24/24 unclear etiology suspected Esophageal related
sternal, exacerbated with swallowing, improvement noted with once maalox
no significant changes noted on EKG
started carafate ACHS but no significant improvement noted since discontinued
Barium Esophagram appreciated esophageal dysmotility, likely source of recurrent pneumonias
GI eval appreciated low fat low residue diet, speech eval, cont PPI BID, outpt esophageal manometry testing
Mild Troponin elevation likely Non-ischemic TX
-trended to peak 0.044 since trended down
Associate Multifocal PNA
Recurrent Pneumonia
-elevated Procal
-Continue VEST therapy
-Continue azithromycin as prior to admission
-Consult Pulmonary appreciated Prednisone taper
-cont empiric Unasyn
Acute Hypoxia
-weaned off oxygen supplementation
-ECHO appreciated EF 60-65% no significant valve abn's, no significant change from prior ECHO 12/01/21
Hx CVA/TIA
-Continue Plavix
Essential Hypertension
-Continue valsartan with holding parameters
Hyperlipidemia
-Continue atorvastatin
Diabetes Mellitus, Type II
-Monitor sugars and continue coverage insulin
Asthma, no acute exacerbation
-Continue Symbicort and Spiriva
Hypothyroidism
-Continue levothyroxine
Bipolar Disorder / Schizoaffective Disorder
-Continue alprazolam, mirtazapine
Dementia
-Continue Aricept and Namenda
Chronic Pain Syndrome with Opioid Dependence secondary to Fibromyalgia and Ankylosing Spondylitis
-Continue hydrocodone/acetaminophen
-Continue cyclobenzaprine, tizanidine and lidocaine cream/patch
GERD
-Continue Pepcid and Protonix
Chronic Lower Extremity Lymphedema
-Held Lasix in setting of GI Illness, diarrhea since resolved
-home Lasix resumed
Obesity s/p Bariatric Surgery
DVT Proph: Lovenox
Code Status: DNR/DNI
I spent a total of 45 minutes with the patient or on the floor. More than 50% of this time involved counseling and coordination of care.
Anticipated Discharge: Within 24 hours
Subjective/Interval History
-
Date of Service: October 27, 2024
Reports overall improvement in symptoms. Weaned off oxygen supplementation. Chest discomfort significantly improved/resolved. Denies new acute issues
Objective Data
-
Labs:
Laboratory Results
10/27/24
06:12
WBC 6.6
Hgb 10.1 L
Hct 30.3 L
Plt Count 215
Sodium Pending
Potassium Pending
Chloride Pending
Carbon Dioxide Pending
BUN Pending
Creatinine Pending
Glucose Pending
Calcium Pending
Vital Signs:
Vital Signs
Temp Pulse Resp BP Pulse Ox
97.9 F 80 20 143/61 92
01/10/25 03:00 10/27/24 03:00 10/27/24 03:00 10/27/24 03:00 10/27/24 03:00
I&O
10/25/24 10/26/24 10/27/24
06:59 06:59 06:59
Intake Total 3130 / 3130 2009 960 / 960
Balance 3130 / 3130 2009 960 / 960
[2024-10-27 06:58] LABS: NT-proBNP 2100 pg/ml
[2024-10-27 07:02] LABS: Blood Urea Nitrogen 11 mg/dl (7-17); Calcium 8.5 mg/dl (8.4-10.2); Carbon Dioxide 26 mmol/L (22-30); Chloride 101 mmol/L (98-107); Estimated Creatinine Clearance 90 ml/min; Glucose 113 mg/dl (70-99); Magnesium 1.7 mg/dl (1.6-2.3); Phosphorus 4.5 mg/dl (2.5-4.5); Potassium 4.2 mmol/L (3.5-5.1); Sodium 136 mmol/L (135-145); eGFR > 60.00
[2024-10-27] MEDS: SYMBICORT 160/4.5 MCG INHALER 2 PUFF INH ×2 (07:25→18:01)
[2024-10-27] MEDS: SPIRIVA RESPIMAT 2.5 MCG 2 PUFF INH (07:25)
[2024-10-27 07:33] VITALS: BP 155/91
[2024-10-27 07:45] LABS: Glucose - Point of Care 115 mg/dl (70-99)
[2024-10-27] MEDS: NOVOLOG FLEXPEN-LOW RESISTANCE SC ×2 (09:38→18:14)
[2024-10-27] MEDS: PLAVIX 75 MG PO (09:39)
[2024-10-27] MEDS: LIPITOR 80 MG PO (09:39)
[2024-10-27] MEDS: NAMENDA 10 MG PO ×2 (09:39→20:41)
[2024-10-27] MEDS: NORCO 5/325 1 TABLET PO ×4 (09:39→21:59)
[2024-10-27] MEDS: VITAMIN B-12 1000 MCG PO (09:39)
[2024-10-27] MEDS: KCL 20 MEQ PO ×2 (09:39→20:41)
[2024-10-27] MEDS: DELTASONE 40 MG PO (09:39)
[2024-10-27] MEDS: ZANAFLEX 2 MG PO ×2 (09:39→20:42)
[2024-10-27] MEDS: ANTIVERT 25 MG PO ×3 (09:39→21:59)
[2024-10-27] MEDS: COGENTIN 2 MG PO ×2 (09:39→20:41)
[2024-10-27] MEDS: PROTONIX 40 MG PO ×2 (09:40→20:41)
[2024-10-27] MEDS: ROXICODONE 5 MG PO ×4 (09:40→22:00)
[2024-10-27] MEDS: DIOVAN 20 MG PO (09:40)
[2024-10-27] MEDS: LASIX 40 MG PO (09:44)
--- NOTE | 2024-10-27 10:19 | W.PN.PUL.V3 ---
Today's Communication / Plan
-
.
Wean oxygen.
Finite course of antibiotics.
Prednisone 40 mg daily for 3 days, then 30 mg daily for 3 days, then 20 mg daily for 3 days and then 10 mg daily until seen by pulmonary.
Esophageal dysmotility likely the culprit of recurrent multifocal pneumonia.
Outpatient GI follow-up.
Pulmonary will sign off-please call with questions
Assessment
-
69-year-old with a history of asthma followed by Dr. Szymanski, suspected silent aspiration, obstructive sleep apnea, hypertension, hyperlipidemia, diabetes, CVA, cognitive impairment as well as anxiety/depression/schizoaffective disorder who
presented with nonproductive cough, shortness of breath after recent hospitalization for community-acquired pneumonia 07/08/2024 and then readmitted with chest pain and pneumonia- 08/29/24 and now readmitted with vomiting, diarrhea, noted to have
pneumonia-pulmonary again consulted for pneumonia 10/23/24. .
Recurrent pneumonia-severe multifocal left-sided community acquired with recent hospitalization and aspiration risk-felt to be secondary to esophageal dysmotility
Nausea/vomiting and diarrhea
Gastroenteritis-Presumed norovirus
Chronic cough
Atypical chest pain
Aspiration risk
Leukocytosis.
Wphjuw-besdthzgrv-dnreqgvrdd 10.2
Hyperglycemia
Conditions present prior to admission:
Hospitalization 07/2024-recurrent pneumonia left upper lobe
Hospitalization March 2024-right lower lobe pneumonia-aspiration suspected
Hospitalization 06/2024-right lower lobe pneumonia.
Hospitalization 08/29/24-chest pain and pneumonia
Asthma-followed by Dr. Szymanski-maintained on Symbicort and Xopenex as well as Aurea, Astelin and Flonase
Pulmonary nodule-7-8 mm stable
Recurrent pneumonia-aspiration suspected..
Esophageal dysmotility
IgG3 deficiency
EVELINA resolved with weight loss.
Obesity/bariatric surgery.
Hypertension.
Hyperlipidemia.
Diabetes.
Hypothyroid.
History CVA.
Anxiety/depression/schizoaffective disorder.
Cognitive dysfunction.
GERD.
Vertigo.
Diverticulosis.
Cholecystectomy. Right knee repair. Tonsillectomy. Carpal tunnel 11/2022. Cataract. Glaucoma. Hysterectomy.
Plan
Respiratory decompensation in the form of a chronic cough and persistent but slightly improved opacification on chest x-ray could be consistent with recurrent silent aspiration pneumonia, however, repetitive workup reveals no evidence for
aspiration-noninfectious airspace opacification differential would also include cryptogenic organizing pneumonia,. However, with upper swallowing normal, however, significant esophageal dysmotility, the latter is likely the cause for recurrent
pneumonias
Supplemental oxygen as needed-attempt to wean
Assess discharge supplemental oxygen needs-currently on 2 L-95% saturation
Mucolytic's
Aspiration precautions
Previous Speech therapy evaluation-evaluation noted, regular diet with thin liquids, video swallow if silent aspiration suspected
Video swallow also noted.
Esophagram 10/25/24--no obstruction, mild diffuse esophageal distention, delayed esophageal transit consistent with esophageal motility disorder.
GI following-correspondence reviewed
No diet modifications required
Nebulizers as needed.
Symbicort 160/4.5 and Spiriva continues
Mucus clearing devices
Incentive spirometry
Flutter.
Vest therapy continues twice daily-patient feels benefit.
Chest physiotherapy left base with postural drainage
Steroids added previous admission for persistent wheezing--and she responded well-if she continues to have wheezing will add steroids-fairly rapid taper
CT chest summarized below
Consider bronchoscopy if recurrent infiltrates without clear etiology-hold off for now.
Steroids will be initiated for mild persistent wheezing and unexplained pulmonary infiltrates-possible cryptogenic organizing pneumonia-hold off for now with minimal wheezing
IgG total 07/26/2024-low 574
IgM normal 93
Immunoglobulin levels 07/26/2024- IgG 3-low at 9.
IgE-51
Consider outpatient replacement therapy with recurrent infections.
Atypical chest pain-troponin and EKG negative.
Hospitalist aware-trying Maalox
Cultures reviewed.
MRSA screen negative
Influenza negative
Blood cultures negative.
C. difficile negative.
Stool cultures negative thus far
Previously, she was unable to produce sputum.
Empiric antibiotics initiated--Unasyn and azithromycin
Iuq-lwtmdsqawu-cdqddqvm at 5.47
Previous barium swallow/upper GI series completed without evidence of dysmotility and without evidence for complications of the gastric bypass..
Previous GI evaluation- noted
Follow hemoglobin
Transfuse if needed
Monitor blood sugar
Insulin supplementation if needed
DVT prophylaxis-on subcu heparin
GI prophylaxis-on Pepcid at night as well as pantoprazole
Nutrition with aspiration precautions
Early mobilization
Reviewed with nursing as well as primary team.
Outpatient GI/esophageal dysmotility follow-up.
Respiratory status improving-Wean oxygen, Finite course of antibiotics, Prednisone taper-pulmonary will sign off-please call with questions
Follow-up pulmonary appointment
Patient was last seen by Dr. Szymanski 03/07/2024 And then an appointment with Janki Lopez NP after recent hospitalization on 10/19/24.-consider gamma globulin replacement therapy or even Biologics and requires radiographic follow-up
Diagnostic data:
CXR 10/29/22: New areas of linear interstitial airspace disease in the right middle lobe and basilar portion of the left lower lobe suggesting interstitial pneumonia/bronchiolitis
Chest x-ray 03/02/2024-��NAD
Chest x-ray 03/22/20246379-yguii-sfzor pneumonia, no large parapneumonic effusion is appreciated
Chest x-ray 07/07/2024-left lower lobe pneumonia
Chest x-ray 07/23/2024-persistent patchy opacification in the left lung with some improvement compared to 07/10/2024, mildly elevated right hemidiaphragm
Chest x-ray 08/28/24-moderate amount of asymmetrical opacification left upper lobe and lower lobes consistent with pneumonia increased since 07/23/24, .
Chest x-ray 10/22/24-left basilar pneumonia
CT scan08/09/2023: Reviewed,Jermaine Stanley 08/24/2023 08:54:12 AM >��1. Stable left lisa-fissural nodule, likely benign.2.� Interval resolution of previously seen left upper lobe groundglass densities.��������-��������CXR 05/16/2023: Right
upper lobe pneumonia appears unchanged. Linear foci in the left lower lobe may be subsegmental atelectasis.��������-��������
CT chest 04/12/2023: Previous opacity/pneumonia in the right lower lobe has resolved. Mild scarring versus atelectasis in the mid to lower lung zones. A perifissural nodule in the left mid to lower lung zone has remained stable. Multiple subtle
groundglass nodular opacities have developed in the left upper lobe measuring up to 8.4 mm.��������-
VSE 01/12/2023: Upper laryngeal penetration. No aspiration.��������-��������
CT chest 01/10/2023:showed no evidence for central pulmonary embolism. Patchy right lower lobe opacification, most likely pneumonia. Prominence of pulmonary interstitium some vague groundglass opacities bilaterally, sparing the Overload. Mild chronic
fiber changes.��������-��������
CT chest01/10/2023: showed no evidence for acute pulmonary embolism.Right lower lobe airspace disease, likely pneumonia, new compared to November 2022. Mild bilateral groundglass opacities.Stable left lower lobe pulmonary nodule.��������-��������
CT chest 2022:Reviewed, showed 8 mm pleural-based pulmonary nodule slightly increased compared to prior examinations.����������������-��������
CT chest 05/08/2022: Solid pleural-based 8 mm left lower lobe pulmonary nodule. Appearance of slight increase in size. However this can be due to the location and the slice image. Moderate right upper lobe and right lower lobe atelectasis versus
scarring. Mild lingular and right middle lobe atelectasis versus scarring. Gallbladder has been removed.
CT sinus 03/14/2024-unremarkable CT of the sinuses
CT chest 04/24/2024-resolution of right pneumonia, low lung volumes with scattered bilateral subsegmental atelectasis, stable 7 mm solid pulmonary nodule,moderate elevation of right hemidiaphragm
CT chest 08/28/24. -severe airspace consolidation left upper lobe and lower lobe increased, but slightly different distribution than 07/25/24, mild to moderate left hilar and left sided mediastinal lymphadenopathy.
CT chest, abdomen and pelvis 10/22/24-multifocal pneumonia in both lungs, left greater than right, mild enterocolitis
Lower extremity ultrasound 03/22/2024-no evidence for DVT
PFT 08/24/2023-FEV1 2.16-86%, FVC 2.78-84%, TLC 76%, RV 55%, DLCO 72%, DLCO/VA 89%
Subjective Data
-
Date of Service:
Date of Service: October 27, 2024
Chief Complaint: Pulmonary Follow Up and Dyspnea Follow Up
Subjective:
Minimal cough, no chest pain or abdominal pain
Review of Systems
General: Other ( per HPI)
Objective Data
Data Reviewed
Vital Signs / I&O:
Vital Signs
Temp Pulse Resp BP Pulse Ox
98.2 F 81 16 155/91 93
10/27/24 07:33 10/27/24 07:33 10/27/24 07:33 10/27/24 07:33 10/27/24 07:33
Intake and Output
10/26/24 10/27/24 10/28/24
06:59 06:59 06:59
Intake Total 2009 960 / 960
Balance 2009 960 / 960
SaO2: 93
Nasal Cannula flow liters per minute: 2
Physical Exam
General: Respiratory Distress (n) and Comfortable
HEENT: Normocephalic and Anicteric
Cardiovascular: Regular Rhythm and Murmur
Respiratory: Wheeze ( few forced expiratory), Crackles ( basilar), Rhonchi (n), Non-Labored Respirations, Accessory Resp Muscle Use (n) and Stridor
GI: Soft, Non Distended and Non Tender
Neurology: Awake and No Motor Deficits
Skin: Warm, Good Color, Cyanosis (n), Jaundice (n) and Rash (n)
Labs/Micro/Reports
Lab Data
10/27/24 06:12
10/27/24 06:12
Microbiology
10/22/24 13:51 Blood/Venous Blood Culture - Preliminary
No Growth in 4 days- Final report to follow
10/22/24 13:51 Blood/Venous Blood Culture - Preliminary
No Growth in 4 days- Final report to follow
10/22/24 10:11 Feces/Stool Salmonella/Shigella Culture - Final
No Salmonella, Shigella, Aeromonas or Plesiomonas species
isolated.
10/22/24 10:11 Feces/Stool Campylobacter Culture - Final
No Campylobacter species isolated.
10/22/24 10:11 Feces/Stool Shiga Toxin Test - Final
No E. coli Shiga Toxin 1 or 2 detected.
[2024-10-27 11:08] VITALS: BP 124/61
--- NOTE | 2024-10-27 14:30 | PTOTSP ---
Speech Language Pathology
Pt seen for clinical bedside swallow evaluation. Well known to [facility] department at . Previous VSEs completed 07/10/24, 03/23/24, 01/12/23, all with recommendations for regular solids/thin liquids. No aspiration noted on any study. Most recently seen
bedside 07/24/24 with recommendations for same.
This date, P.O. trials of water ice, thin liquids, and regular solids provided. Slightly prolonged mastication of regular solids noted, secondary to edentulous status. No overt signs of aspiration. Belch x1, likely related to known esophageal
dysphagia.
Pt with recurrent PNA, but given multiple VSEs with no significant difficulty and known esophageal dysphagia, this is being considered likely etiology of recurrent PNA.
Recommend:
(1) Regular solids/thin liquids
(2) General aspiration precautions
(3) Esophageal precautions
(4) Continued GI follow planned as OP
(5) [facility] to sign off. Please reconsult as indicated
[2024-10-27 15:14] VITALS: BP 150/79
[2024-10-27 15:25] LABS: Glucose - Point of Care 224 mg/dl (70-99)
[2024-10-27] MEDS: NOVOLOG FLEXPEN-LOW RESISTANCE 2 UNITS SC (15:25)
[2024-10-27 16:49] LABS: Glucose - Point of Care 416 mg/dl (70-99)
[2024-10-27] MEDS: LOVENOX 40 MG SC (17:16)
[2024-10-27 18:13] LABS: Glucose 142 mg/dl (70-99)
[2024-10-27 19:00] VITALS: BP 149/85
[2024-10-27 21:23] LABS: Glucose - Point of Care 200 mg/dl (70-99)
[2024-10-27] MEDS: ARICEPT 10 MG PO (21:59)
[2024-10-27] MEDS: FLEXERIL 10 MG PO (21:59)
[2024-10-27] MEDS: REMERON 45 MG PO (22:00)
[2024-10-27] MEDS: PEPCID 40 MG PO (22:00)
[2024-10-27 23:00] VITALS: BP 132/69
[2024-10-28 03:00] VITALS: BP 151/75
[2024-10-28 05:16] VITALS: BMI 31.2
[2024-10-28] MEDS: SYNTHROID 50 MCG PO (05:33)
[2024-10-28] MEDS: UNASYN IV ×2 (05:33→12:24)
[2024-10-28 06:59] LABS: Hematocrit 31.9 % (37.0-47.0); Hemoglobin 10.2 g/dL (12.0-16.0); Mean Corpuscular Hgb 28.7 pg (27.0-31.0); Mean Corpuscular Volume 89.6 fL (81.0-99.0); Mean Platelet Volume 9.1 fL (7.4-10.4); Platelet Count 245 10^3/uL (130-400); Red Blood Cell Count 3.56 10^6/uL (4.20-5.40); Red Cell Dist. Width 13.5 % (11.5-14.5); White Blood Cell Count 5.9 10^3/uL (4.8-10.8)
--- NOTE | 2024-10-28 07:25 | W.PN.HOSP.TC ---
Today's Communication/Plan
-
discharge
Assessment / Plan
Assessment / Plan
Physical Exam
General: Comfortable and Conversant
HEENT: Anicteric moist mucous membranes
Respiratory: clear to auscultation
Cardiac: S1/S2 and Regular Rhythm
GI: Soft and nontender bowel sounds present
Musculoskeletal: No Clubbing and No Cyanosis
Skin: Warm and Dry
Neuro: Awake, Alert and Oriented
Psych: Calm
69F CVA, HTN, DM, Bipolar Disorder, Chronic Pain and Recurrent Pneumonia p/w vomiting and diarrhea. Reported high volume diarrhea and inability to tolerate oral fluids. Upon arrival to the ED she was found to be febrile with temp 100.7F. Denied
sick contacts, recent travel or usual food intake, but is maintained on chronic antibiotics for recurrent pneumonia.
Sepsis secondary to Viral Gastroenteritis
-Norovirus CDiff neg
-symptoms since resolved, completed IVF support
-clear liquid advanced to Low residue, tolerating.
Chest pain/discomfort 10/24/24 likely Esophageal related
Barium Esophagram appreciated esophageal dysmotility, likely source of recurrent pneumonias
GI eval appreciated low fat low residue diet, speech eval, cont PPI BID, outpt esophageal manometry testing
Mild Troponin elevation likely Non-ischemic PR
-trended to peak 0.044 since trended down
Associate Multifocal PNA
Recurrent Pneumonia
-elevated Procal
-VEST therapy
-Continue home azithromycin
-Consult Pulmonary appreciated Prednisone taper dose to be reduced by 10 mg after every 3rd dose until reaching 10 mg daily. Following which patient should continue until seen by pulmonology
-completed 5 days Unasyn
Acute Hypoxia resolved
-weaned off oxygen supplementation
-ECHO appreciated EF 60-65% no significant valve abn's, no significant change from prior ECHO 12/01/21
Hx CVA/TIA
-Continue Plavix
Essential Hypertension
-Continue valsartan with holding parameters
Hyperlipidemia
-Continue atorvastatin
reported Hx Diabetes Mellitus, Type II
Obesity
steroid induced hyperglycemia
-recent A1c 6.1 prediabetic (review of records notes consistent prediabetic A1c for the last year)
-likely steroid induced hyperglycemia, anticipated to resolve as prednisone is tapered down
Asthma, no acute exacerbation
-Continue Symbicort and Spiriva
Hypothyroidism
-Continue levothyroxine
Bipolar Disorder / Schizoaffective Disorder
-Continue alprazolam, mirtazapine
Dementia
-Continue Aricept and Namenda
Chronic Pain Syndrome with Opioid Dependence secondary to Fibromyalgia and Ankylosing Spondylitis
-Continue hydrocodone/acetaminophen
-Continue cyclobenzaprine, tizanidine and lidocaine cream/patch
GERD
-Continue Pepcid and Protonix
Chronic Lower Extremity Lymphedema
-Held Lasix in setting of GI Illness, diarrhea since resolved
-home Lasix resumed
Obesity s/p Bariatric Surgery
DVT Proph: Lovenox
Code Status: DNR/DNI
Medically stable for discharge home with outpatient follow up recommendations.
Total Time Preparing Discharge ___40____ minutes including examination of the patient, summary of the hospital stay, instructions for continuing care to all relevant caregivers; and preparation of discharge records, prescriptions, and referral
forms if necessary.
Anticipated Discharge: Today
Subjective/Interval History
-
Date of Service: October 28, 2024
Seen and examined at bedside in no acute distress. Overall reports feeling well. Symptom free. Denies new acute issues. Eager to go home.
Objective Data
-
Labs:
Laboratory Results
10/28/24
06:42
WBC 5.9
Hgb 10.2 L
Hct 31.9 L
Plt Count 245
Sodium Pending
Potassium Pending
Chloride Pending
Carbon Dioxide Pending
BUN Pending
Creatinine Pending
Glucose Pending
Calcium Pending
Vital Signs:
Vital Signs
Temp Pulse Resp BP Pulse Ox
98.4 F 75 14 151/75 93
10/28/24 03:00 10/28/24 03:00 10/28/24 03:00 10/28/24 03:00 10/28/24 03:00
I&O
10/27/24 10/28/24 10/29/24
06:59 06:59 06:59
Intake Total 960 / 960 1500 / 1500
Balance 960 / 960 1500 / 1500
[2024-10-28 07:31] VITALS: BP 158/90
[2024-10-28 07:35] LABS: Blood Urea Nitrogen 7 mg/dl (7-17); Calcium 8.8 mg/dl (8.4-10.2); Carbon Dioxide 29 mmol/L (22-30); Chloride 102 mmol/L (98-107); Estimated Creatinine Clearance 90 ml/min; Glucose 116 mg/dl (70-99); Magnesium 1.6 mg/dl (1.6-2.3); Phosphorus 4.3 mg/dl (2.5-4.5); Potassium 4.1 mmol/L (3.5-5.1); Sodium 140 mmol/L (135-145); eGFR > 60.00
[2024-10-28] MEDS: SPIRIVA RESPIMAT 2.5 MCG 2 PUFF INH (07:51)
[2024-10-28] MEDS: SYMBICORT 160/4.5 MCG INHALER 2 PUFF INH (07:51)
[2024-10-28 08:18] LABS: Glucose - Point of Care 108 mg/dl (70-99)
[2024-10-28] MEDS: ROXICODONE 5 MG PO ×2 (09:08→13:25)
[2024-10-28] MEDS: NORCO 5/325 1 TABLET PO ×2 (09:08→13:25)
[2024-10-28] MEDS: COGENTIN 2 MG PO (09:08)
[2024-10-28] MEDS: ANTIVERT 25 MG PO (09:08)
[2024-10-28] MEDS: DIOVAN 20 MG PO (09:09)
[2024-10-28] MEDS: LASIX 80 MG PO (09:09)
[2024-10-28] MEDS: ZANAFLEX 2 MG PO (09:10)
[2024-10-28] MEDS: DELTASONE 40 MG PO (09:10)
[2024-10-28] MEDS: KCL 20 MEQ PO (09:10)
[2024-10-28] MEDS: PLAVIX 75 MG PO (09:10)
[2024-10-28] MEDS: LIPITOR 80 MG PO (09:10)
[2024-10-28] MEDS: PROTONIX 40 MG PO (09:10)
[2024-10-28] MEDS: NAMENDA 10 MG PO (09:10)
[2024-10-28] MEDS: NOVOLOG FLEXPEN-LOW RESISTANCE SC ×2 (09:14→15:58)
[2024-10-28 11:13] VITALS: BP 125/68
[2024-10-28 11:41] LABS: Glucose - Point of Care 259 mg/dl (70-99)
[2024-10-28] MEDS: NOVOLOG FLEXPEN-LOW RESISTANCE 3 UNITS SC (12:25)
[2024-10-28 15:37] VITALS: BP 136/64
--- NOTE | 2024-10-28 15:50 | W.DCSUMMARY ---
Discharge Summary
Discharge Data
Date of Admission: 10/22/24
Date of Discharge: 10/28/24
-
Pending Results: No
Discharge Plan
-
Patient Disposition: Home (Routine Discharge)
Discharge Diagnosis/Procedures: Sepsis secondary to Viral Gastroenteritis
Esophageal Dysmotility likely causing recurrent aspirations and subsequent Recurrent Pneumonia
Multifocal Pneumonia
Possible Cryptogenic Pneumonia
Acute Hypoxia resolved
Steroid induced Hyperglycemia
Recent HgbA1c noted at prediabetes level 6.1
Condition: Fair
Diet: Low Fat and Low Residue
Activity: As tolerated
Driving Restrictions: As prior to admission
Bathing Restrictions: None
Others Tests: Please follow up with GI for esophageal manometry testing
Activity Restrictions/Additional Instructions:
Please follow up with primary care provider in 1 week of discharge, GI in two weeks of discharge, and Pulmonology in 2-3 weeks of discharge.
Prednisone has been prescribed as per Pulmonary recommendations due to concerns possible cryptogenic pneumonia:
Prednisone 30 mg daily x 3 days, then 20 mg daily x 3 days, then 10 mg daily from then on until seen by Pulmonary.
Please take medications as prescribed/recommended and follow up with primary care provider and/or other healthcare provider involved in your care for refills and/or further adjustment to your medication regimen as necessary.
Referrals:
Vincenzo Rodrigez MD [Active] - in two weeks
Jermaine Bueno MD [Active] - in two to three weeks (Or nurse practitioner)
Torrie Arizmendi MD [Family Provider] - in one week
Prescriptions:
New
prednisone 10 mg Tablet
10 mg PO DIRECTED Qty: 60 0RF
Rx Instructions:
30 mg daily x3 days, 20 mg daily x3 days, then 10 mg daily till seen by Pulm
Continued
famotidine 40 MG tablet
40 mg PO HS
atorvastatin 80 mg Tablet
80 mg PO DAILY
clopidogrel 75 mg Tablet
75 mg PO DAILY
pantoprazole [Protonix] 40 mg Tablet,Delayed Release (Dr/Ec)
40 mg PO BID
benzonatate 200 mg Capsule
200 mg PO TIDPRN PRN (Reason: cough)
donepezil 10 mg Tablet
10 mg PO HS
levothyroxine 50 mcg Tablet
50 mcg PO DAILY
mirtazapine 45 mg Tablet
45 mg PO HS
Patient Comments:
take 15mg and 30mg together
valsartan 40 mg Tablet
20 mg PO DAILY
levalbuterol tartrate [Xopenex HFA] 45 mcg/actuation Hfa Aerosol Inhaler
2 inh INHALATION R Q6HPRN PRN (Reason: sob) Qty: 0
ZTlido 1.8 % Adhesive Patch,Medicated
3 patch TOPICAL DAILYPRN PRN (Reason: b/l knee,hip and/or lower back)
Rx Instructions:
UP TO 3 patches a day max on at HS off in am
cyclobenzaprine 10 mg Tablet
10 mg PO HS
cyanocobalamin (vitamin B-12) 1,000 mcg Tablet
1,000 mcg PO Q48H
hydrocodone-acetaminophen 10-325 mg Tablet
1 tab PO QID
Patient Comments:
08/28/2024: last filled 08/02/24, 120 tabs for 30 days from [facility]
ergocalciferol (vitamin D2) 1,250 mcg (50,000 unit) Capsule
1,250 mcg PO WE
ondansetron 4 mg Tablet,Disintegrating
4 mg PO BIDPRN PRN (Reason: nausea)
memantine 10 mg tablet
10 mg PO BID
lidocaine-prilocaine 2.5-2.5 % Cream
1 applic TOPICAL Q8HPRN PRN (Reason: breakthrough mild pain )
Rx Instructions:
apply to bilateral knees, bilateral hips and lower back
tizanidine 2 mg tablet
2 mg PO BID
furosemide 40 MG tablet
80 mg PO TUSA
budesonide-formoterol [Symbicort] 160-4.5 mcg/actuation Hfa Aerosol Inhaler
2 inh INHALATION R BID
cranberry 500 mg Capsule
4,200 mg PO BID
pregabalin [Lyrica] 25 mg Capsule
25 mg PO TIDPRN PRN (Reason: neuropathy)
potassium chloride [Klor-Con M20] 20 mEq Tablet,Er Particles/Crystals
20 meq PO BID
furosemide [Lasix] 40 mg Tablet
40 mg PO SUMOWETHFR
alprazolam 0.5 mg tablet
0.5 mg PO QIDPRN PRN (Reason: anxiety)
Patient Comments:
08/28/2024: last filled 08/07/24, 120 tabs for 30 days from [facility]
meclizine 25 mg tablet
25 mg PO TID
tiotropium bromide [Spiriva with HandiHaler] 18 mcg capsule, w/inhalation device
1 cap inhalation R DAILY
azithromycin 250 mg Tablet
250 mg PO Q48H
benztropine 2 mg Tablet
2 mg PO BID
Discharge Orders:
Discharge Patient (As Directed); Ordered 10/28/24
Ordered By: Gentry Guillermo
Discharge Date and Time
Print Language: AUSTRALIAN
[2024-10-28] MEDS: ANTIVERT PO (15:58)
--- NOTE | 2024-10-28 16:20 | CM ---
IMM benefit explained; form signed
NO skilled PT needed
Brother will provide transport home
Plan: discharge to home; no needs
== END 2024-10-28 17:14 | disposition home or self-care (01) | DRG 871 ==
LOC: 3 WEST ACU 13:59
PROVIDERS: Emergency Medicine; Physician Assistant; Physician Assistant Medical; ADMITTING PHYSICIAN Internal Medicine; ATTENDING PHYSICIAN Internal Medicine; CONSULT PHYSICIAN Internal Medicine Gastroenterology; EMERGENCY PHYSICIAN Emergency Medicine; FAMILY PHYSICIAN Student in an Organized Health Care Education/Training Program; OTHER PHYSICIAN Internal Medicine Critical Care Medicine
DX: A41.89 Other specified sepsis (principal); J18.9 Pneumonia, unspecified organism; F03.93 Unspecified dementia, unspecified severity, with mood disturbance; F11.20 Opioid dependence, uncomplicated; A08.11 Acute gastroenteropathy due to Norwalk agent; J84.116 Cryptogenic organizing pneumonia; G47.33 Obstructive sleep apnea (adult) (pediatric); Z66 Do not resuscitate; I10 Essential (primary) hypertension; F25.9 Schizoaffective disorder, unspecified; F31.9 Bipolar disorder, unspecified; G89.4 Chronic pain syndrome; I89.0 Lymphedema, not elsewhere classified; K21.9 Gastro-esophageal reflux disease without esophagitis; E03.9 Hypothyroidism, unspecified; E78.00 Pure hypercholesterolemia, unspecified; E66.9 Obesity, unspecified; E87.6 Hypokalemia; E11.40 Type 2 diabetes mellitus with diabetic neuropathy, unspecified; E11.65 Type 2 diabetes mellitus with hyperglycemia; J45.909 Unspecified asthma, uncomplicated; T38.0X5A Adverse effect of glucocorticoids and synthetic analogues, initial encounter; R62.7 Adult failure to thrive; R09.02 Hypoxemia; M81.0 Age-related osteoporosis without current pathological fracture; M79.7 Fibromyalgia; Z68.32 Body mass index [BMI] 32.0-32.9, adult; Z98.84 Bariatric surgery status; Z96.651 Presence of right artificial knee joint; Z87.01 Personal history of pneumonia (recurrent); Z86.73 Personal history of transient ischemic attack (TIA), and cerebral infarction without residual deficits; Z79.899 Other long term (current) drug therapy; Z79.890 Hormone replacement therapy; Z79.02 Long term (current) use of antithrombotics/antiplatelets; Z79.51 Long term (current) use of inhaled steroids
CPT/HCPCS: 71045; 71260; 74177; 74221; 80048; 80053; 82728; 82947; 82962; 83036; 83540; 83550; 83605; 83690; 83735; 83880; 84100; 84145; 84484; 85025; 85027; 87040; 87045; 87046; 87324; 87427; 87449; 87798; 92610; 93005; 93306; 94640; 94669; 96361; 96374; 99285; Q9967

== ENCOUNTER 2024-11-03 19:21 | Inpatient (IN) | payer OTHER, SELFPAY ==
[2024-11-03] VITALS (8 sets, daily range): BP systolic 119–169; BP diastolic 60–96; BMI 31.7; BMI 30.4
[2024-11-03 15:39] LABS: % Basophils 0.3 % (0-2); % Immature Granulocytes 0.5 % (0-0.5); % Lymphocytes 7.2 % (20.5-51.1); % Monocytes 6.7 % (1.7-9.3); % Neutrophils 85.3 % (42.2-75.2); Absolute Lymphocytes 0.4 10^3/uL (1.2-3.4); Absolute Monocytes 0.4 10^3/uL (0.1-0.6); Hematocrit 34.6 % (37.0-47.0); Hemoglobin 11.5 g/dL (12.0-16.0); Mean Corp Hgb Conc. 33.2 g/dL (33.0-37.0); Mean Corpuscular Hgb 28.9 pg (27.0-31.0); Mean Corpuscular Volume 86.9 fL (81.0-99.0); Mean Platelet Volume 8.8 fL (7.4-10.4); Nucleated Red Blood Cells % 0 %; Platelet Count 327 10^3/uL (130-400); Red Blood Cell Count 3.98 10^6/uL (4.20-5.40); Red Cell Dist. Width 13.8 % (11.5-14.5); White Blood Cell Count 5.8 10^3/uL (4.8-10.8)
[2024-11-03 15:47] LABS: Lactic Acid 1.1 mmol/L (0.7-2.0)
[2024-11-03 15:49] LABS: ALT (SGPT) 20 U/L (0-35); AST (SGOT) 19 U/L (14-36); Albumin 3.9 g/dl (3.5-5.0); Alkaline Phosphatase 89 U/L (38-126); Blood Urea Nitrogen 16 mg/dl (7-17); Calcium 8.7 mg/dl (8.4-10.2); Carbon Dioxide 27 mmol/L (22-30); Chloride 99 mmol/L (98-107); Glucose 172 mg/dl (70-99); Potassium 3.7 mmol/L (3.5-5.1); Sodium 134 mmol/L (135-145); Total Bilirubin 0.3 mg/dl (0.2-1.3); Total Protein 6.3 g/dl (6.3-8.2); eGFR > 60.00
[2024-11-03 15:54] LABS: COVID-19 Antigen Negative (Negative)
[2024-11-03 15:59] LABS: Troponin I 0.015 ng/ml
--- NOTE | 2024-11-03 16:08 | ED.GENMED ---
History of Present Illness
General
Chief Complaint: Cough
Source: patient and records
Exam Limitations: none
Time Seen by Provider: 11/03/24 15:54
History of Present Illness
History of Present Illness:
69yoF with a history of CVA, hypertension, diabetes, COPD, and recurrent pneumonia on chronic azithromycin presenting for evaluation of chest pain. Patient was recently hospitalized from 10/22/24-10/28/24 for pneumonia. She was treated with Unasyn
during the hospitalization. Patient was doing well up until yesterday when her symptoms recurred. She reports cough, shortness of breath, and left sided chest pain. She is febrile to 102.8 on arrival and believes that she has pneumonia again.
Past History
Past History
ED Past Medical History: Asthma, CVA, HTN, Hypercholesterolemia, NIDDM, [place] and Psychiatric
ED Past Surgical History: Cholecystectomy, Gynecological (Hysterectomy), Orthopedic (right knee replacement) and Other (Gastric bypass)
Social History
Tobacco: Non-smoker
Alcohol: None
Drug: None
Personal:
Living: alone
Employment: Disabled
Family History
Family History: Asthma
Phy Exam
Physical Exam
Physical Exam:
See above
General Physical Exam
General Skin: warm and dry
General Habitus: normal
General Mental: alert
ENT Exam
ENT Exam: normocephalic
Cardiovascular Exam
Cardiovascular Exam: regular rate/rhythm
Pulmonary Exam
Pulmonary Exam: other (+Rales noted on L. Mildly increased WOB.)
Neurological Exam
Neurological Exam: alert
Kristina Coma Scale
Eye Opening: Spontaneous
Verbal Response: Oriented
Motor Response: Obeys Commands
GCS Total Score: 15
Skin Exam
Skin Exam: normal color and warm/dry
Psychiatric Exam
Psychiatric Exam: normal mood/affect
Sepsis
Sepsis Screening
Sepsis Assessment: Sepsis
Sepsis Screen
Sepsis Screen: Sepsis
Date: 11/03/24
Time: 21:57
Course
Orders/Labs/Results
Orders:
Orders
11/03/24 Dinner
Cholesterol Lowering
Fluid Restriction: 1440 mL/day (48 oz)
Cholesterol Lowering: Sodium, 2 Gram
11/03/24 15:07
EKG [Electrocardiogram (*1)] Urgent
Reason for Study: Chest Pain
CXR2 [CR Chest - 2 Views ] Urgent
Comment:
Reason For Exam: sob
11/03/24 15:26
CBC/With Diff [Complete Blood Count/With Diff] Urgent
COVID-19 Antigen Urgent
Source: Nasal Swab
Comprehensive Metabolic Panel Urgent
Lactate Level [Lactic Acid] Urgent
Influenza A+B Rapid Molecular Urgent
ELINOR Source: Nasal Swab
Specimen Description:
11/03/24 15:28
Troponin I Urgent
11/03/24 16:07
0.9% Sodium Chloride 500 ml [Nss] 500 ml IV BOLUS
Acetaminophen [Tylenol] 1,000 mg PO NOW STA
11/03/24 16:18
Lactate Level [Lactic Acid] Urgent
Procalcitonin Urgent
PCT Algorithmm Indication: Respiratory
Blood Culture Q30M
ELINOR Source: Blood/Venous
Specimen Description:
Blood Culture Q30M
ELINOR Source: Blood/Venous
Specimen Description:
11/03/24 16:20
Ipratropium/Albuterol Sulfate [Duoneb] 3 ml INH R NOW STA
11/03/24 18:43
Admit/Transfer Patient As Directed
Co-Sign Provider:
Level of Care: Inpatient admission
Assign to:: Telemetry
Physician / Group: Lisa Collins
Diagnosis: recurrent pneumonia/pneumonitis
Reason for Telemetry: Chest Pain syndromes
Date to Stop Telemetry: 11/05/24
Time to Stop Telemetry: 11:00
Reason for Hospitalization: recurrent pneumonia/pneumonitis
Expected length of stay greater than two midnights?: Yes
ELOS- Estimated Length of Stay in days: 3
I certify the patient meets the requirements for IP care: Yes
PRN Pain Medication Management As Directed
May give lesser potent ordered pain med per pt: Yes
preference::
Protocol:: Medication orders for pain may be administered in a
manner that supports deferring to patient preference
when the pt is:
- Requesting an ordered lesser potent pain medication.
Least to most potent pain medications are defined
as: acetaminophen < NSAID < tramadol < opioids
(morphine, oxycodone, hydromorphone).
- Requesting a lesser dose of the same medication IF
ORDERED.
- Requesting a less intrusive route of administration
if both routes are prescribed by the provider (PO <
IV).
11/03/24 18:47
Code Status As Directed
Resuscitation Status: Do not resuscitate
Reached after discussion with pt or family/Healthcare POA: Yes
DNR Bracelet Application ONCE
11/03/24 19:03
Furosemide [Lasix] 80 mg IV NOW STA
Potassium Chloride 10% Elixir [KCl Elixir] 40 meq PO NOW STA
11/03/24 19:07
Ampicillin/Sulbactam 3 G [Unasyn] 3 gm 0.9% Sodium Chloride 100 ml [Nss] 100 ml IV NOW
11/03/24 20:48
Benztropine [Cogentin] 1 mg PO BID@1300,2000
Bisacodyl [Dulcolax] 10 mg RECTAL [id number] PRN
Budesonide/Formoterol 160/4.5 [Symbicort 160/4.5 Mcg Inhaler] 2 puff INH R BID
Docusate W/Senna [Senokot-S] 1 tablet PO BIDPRN PRN
Ipratropium Nebs [Atrovent Nebules] 0.5 mg INH R TID
Levalbuterol Tartrate [Xopenex Hfa 45 Mcg Inhaler] 2 puff INH R Q6HPRN PRN
Levalbuterol [Xopenex 0.63 mg Inhalant Solution] 0.63 mg INH R TID
Memantine HCl [Namenda] 10 mg PO BID
Pantoprazole [Protonix] 40 mg PO BID
Polyethylene Glycol Powder [Miralax] 17 grams PO DAILYPRN PRN
Pregabalin [Lyrica] 25 mg PO TIDPRN PRN
Tizanidine [Zanaflex] 2 mg PO BID
11/03/24 20:48
HF DIETARY CONSULT Routine
HF EDUCATOR CONSULT Routine
Comment:
Activity As Directed
Activity Level: As Tolerated
Activity As Directed
Activity Level: As Tolerated
Intake/ Output As Directed
Frequency: Per unit guidelines
Patient Education As Directed
Type: CHF folder
Comment: give on admission. Document in Interdisciplinary Education record
Sleep Apnea Assessment by RN As Directed
Comment:
Physician Instructions:
Vital Signs As Directed
Frequency: Other
Additional Instructions:: Q12 or per unit guidelines if more frequent.
Vital Signs As Directed
Frequency: Per unit guidelines
Weight As Directed
Frequency: Daily
Type of Scale: Standing Scale
Comment: Daily morning weight. If unable to stand, use balanced bed scale.
Weight As Directed
Frequency: Once
Type of Scale: Standing Scale
Comment: Upon Admission. If unable to stand, use balanced bed scale.
Xopenex Reason for Use As Directed
Reason for ordering Xopenex instead of Albuterol: tachycardia
Xopenex Reason for Use As Directed
Reason for ordering Xopenex instead of Albuterol: tachycardia
Pulse Ox/cont/shift [RESP] Routine
Quantity: 1
Special Instructions: Daily pulse oximetry at rest. If greater than 92% at rest also obtain pulse oximetry
while ambulating as tolerated.
Ot Eval And Treat Routine
Pt Eval And Treat Routine
Activity Level: As Tolerated
Speech Therapy Eval & Treat Routine
DX Deep Vein Thrombosis Video Routine
11/03/24 20:53
Benzonatate [Tessalon Perles] 200 mg PO TIDPRN PRN
11/03/24 22:00
Acetaminophen [Tylenol] 650 mg PO Q4HPRN PRN
Alprazolam [Xanax] 0.5 mg PO QID
Cyclobenzaprine HCl [Flexeril] 10 mg PO HS
Donepezil HCl [Aricept] 10 mg PO HS
Famotidine [Pepcid] 40 mg PO HS
Meclizine [Antivert] 25 mg PO TID
Mirtazapine [Remeron] 45 mg PO HS
hydrocodone-acetaminophen 1 tablet PO QID
11/04/24 02:00
Ampicillin/Sulbactam 3 G [Unasyn] 3 gm 0.9% Sodium Chloride 100 ml [Nss] 100 ml IV Q6H
11/04/24 06:00
Basic Metabolic Panel IN AM
Complete Blood Count/With Diff IN AM
Magnesium IN AM
Levothyroxine [Synthroid] 50 mcg PO DAILY @ 0600
11/04/24 08:00
Atorvastatin [Lipitor] 80 mg PO DAILY
Azithromycin [Zithromax] 250 mg PO Q48H
Benztropine [Cogentin] 2 mg PO DAILY
Clopidogrel Bisulfate [Plavix] 75 mg PO DAILY
Furosemide [Lasix] 40 mg IV DAILY
Prednisone [Deltasone] 10 mg PO DAILY
Tiotropium [place] 2.5 Mcg [Spiriva Respimat 2.5 Mcg] 2 puff INH R DAILY
Valsartan [Diovan] 20 mg PO DAILY
11/04/24 18:00
Enoxaparin Sodium [Lovenox] 40 mg SC QPM
11/05/24 11:00
DC Protocol for Telemetry ONCE
Abnormal Lab Results
11/03/24
15:26
RBC 3.98 L 10^6/uL
(4.20-5.40)
Hgb 11.5 L g/dL
(12.0-16.0)
Hct 34.6 L %
(37.0-47.0)
Absolute Lymphs (auto) 0.4 L 10^3/uL
(1.2-3.4)
Neutrophils % 85.3 H %
(42.2-75.2)
Lymphocytes % 7.2 L %
(20.5-51.1)
Sodium 134 L mmol/L
(135-145)
Glucose 172 H mg/dl
(70-99)
11/03/24 15:26
11/03/24 15:26
Vital Signs
Initial and Last Documented VS:
Initial Vital Signs
Temp Pulse Resp BP Pulse Ox
102.8 F H 96 18 169/86 93
11/03/24 15:03 11/03/24 15:03 11/03/24 15:03 11/03/24 15:03 11/03/24 15:03
Last Documented Vital Signs
Temp Pulse Resp BP Pulse Ox
100.0 F 81 14 119/71 94
11/03/24 20:40 11/03/24 21:50 11/03/24 21:50 11/03/24 20:40 11/03/24 21:50
MDM/Problems Addressed
Differential Diagnosis Includes:
69yoF here chest discomfort and cough. Hx of recurrent pneumonia and recent admission for pneumonia. She is febrile to 102.8 on arrival. L sided rales noted on exam with mildly increased WOB. Differential diagnosis includes but is not limited to:
pneumonia, aspiration, viral illness, sepsis, ACS
Initial ED plan: Check cardiac labs, lactate, blood cultures, COVID/flu swab, EKG, and CXR. Tylenol and fluid bolus.
*Critical Care Note
Total Time (30-74mins, 75-104mins- exclusive of procedures): Not Applicable
Update Note
Update Note:
CXR shows stable L sided infiltrate. White count, lactate, and procalcitonin WNL. COVID/flu negative. Patient desaturated to 86% and was placed on 3L NC. IV Unasyn ordered and patient admitted for further management.
ED Attending Note
-
Portions of this chart may have been created with voice recognition software.� Occasional wrong word or��sound alike� substitutions may have occurred due to the inherent limitations of voice recognition software.
Discharge Plan
Departure
Patient Disposition: Admit
Date of Disposition: 11/03/24
Time of Disposition: 18:15
Presentation/result/management discussed w/ accepting MD/DO: Hospitalist
Discharge Problem:
Fever, Pneumonia
Interventions
Interventions:
*Risk Screen - Suicide Last Done: 11/03/24 15:03
*General Assessment Last Done: 11/03/24 15:50
*Neglect/Abuse Screening Last Done: 11/03/24 15:03
*ED COVID-19 Vaccine History Last Done: 11/03/24 15:50
*Nursing Disposition Last Done: 11/03/24 20:47
ED- Pulmonary Assessment Last Done: 11/03/24 20:13
Discharge Date and Time
Discharge Date/Time: 11/03/24 20:47
[2024-11-03] MEDS: TYLENOL 1000 MG PO (16:13)
[2024-11-03] MEDS: NSS 500 IV (16:16)
[2024-11-03] MEDS: DUONEB 3 ML INH (16:24)
[2024-11-03 16:46] LABS: Lactic Acid 1.2 mmol/L (0.7-2.0)
[2024-11-03 17:10] LABS: Procalcitonin 0.06 ng/ml (0.0-0.25)
--- NOTE | 2024-11-03 18:14 | HPS.HSE ---
Family Physician
-
Family Physician: Torrie Arizmendi MD
Chief Complaint
-
cough and left sided chest pain
History of Present Illness
Ms. Avis Leslie is a 69 yo woman with hx CVA with cognitive impairment, essential HTN, DM, Bipolar disorder, chronic pain, anxiety/depression/schizoaffective disorder, recurrent hospitalizations for pneumonia (07/11, 09/10, 11/11) represents to
the ER with cough and chest pain. She was found to by hypoxic on arrival with SpO2 80's.
From prior admissions: Recurrent pneumonia thought secondary to recurrent silent aspiration, but repetitive work up without evidence of aspiration. Patient did have an Esophagram showing delayed motility disorder. Per GI: 'Will need outpatient
esophageal manometry testing to evaluate the esophageal dysmotility but until then diet modification to prevent further aspiration pneumonia.' Per ST, she was advised regular solids/thin liquids with general aspiration and esophageal precautions.
Patient has a follow up with GI on 11/17/24.
Patient states she was feeling well until yesterday when she started having cough and chest pain with coughing. Pain is reproducible on exam. Cough non-productive. She denies coughing with eating food. mild nausea, no vomiting. No diarrhea. +
fatigue. She didn't know she had a fever until arrival here. No abdominal pain. No LE swelling. She states she feels similarly to how she has felt prior with pneumonia.
Medical History
Past Medical History
Past Medical History: Reports Other
Additional Past Medical History:
CVA/TIA
Essential Hypertension
Hyperlipidemia
Diabetes Mellitus, Type II
Asthma
Hypothyroidism
Bipolar Disorder / Schizoaffective Disorder
Dementia
Chronic Pain Syndrome
Fibromyalgia
Ankylosing Spondylitis
GERD
Chronic Lower Extremity Lymphedema
Obstructive Sleep Apnea
Past Surgical History: Reports Other
Additional Past Surgical History:
Cholecystectomy
Hysterectomy
Tonsillectomy
Gastric Bypass
Right Knee Surgery
Social History
Tobacco: Non-smoker
Alcohol: None
Drug: None
Family History
Family History: Not pertinent
Allergies / Home Medications
Allergies reflects when Allergies were last updated in [employer].
Home Medications with original date entered in [employer]
Allergy/Medication List:
Allergies
Allergy/AdvReac Type Severity Reaction Status Date / Time
celecoxib [From Celebrex] Allergy Unknown Verified 11/03/24 15:03
hydrochlorothiazide Allergy Unknown Verified 11/03/24 15:03
NSAIDS (Non-Steroidal Allergy Gastric Verified 11/03/24 15:03
Anti-Inflamma Bypass
pregabalin [From Lyrica] Allergy Unknown Verified 11/03/24 15:03
promethazine Allergy Unknown Verified 11/03/24 15:03
zolpidem [From Ambien] Allergy Unknown Verified 11/03/24 15:03
Home Medications
famotidine 40 mg tablet 40 mg PO HS Gastrointestinal Issue 05/19/15
atorvastatin 80 mg tablet 80 mg PO DAILY High Cholesterol 01/10/23
benzonatate 200 mg capsule 200 mg PO TIDPRN PRN cough 01/10/23
clopidogrel 75 mg tablet 75 mg PO DAILY Blood Clot Prevention/Tx 01/10/23
donepezil 10 mg tablet 10 mg PO HS Mental Health/Anxiety 01/10/23
levalbuterol tartrate 45 mcg/actuation aerosol inhaler (Xopenex HFA) 2 inh inhalation R Q6HPRN PRN sob ##0 01/10/23
levothyroxine 50 mcg tablet 50 mcg PO DAILY Thyroid 01/10/23
lidocaine 1.8 % topical patch (ZTlido) 3 patch topical DAILYPRN PRN b/l knee,hip and/or lower back 01/10/23
mirtazapine 45 mg tablet 45 mg PO HS Mental Health/Anxiety 01/10/23
pantoprazole 40 mg tablet,delayed release (Protonix) 40 mg PO BID Gastrointestinal Issue 01/10/23
valsartan 40 mg tablet 20 mg PO DAILY Blood Pressure 01/10/23
cyanocobalamin (vitamin B-12) 1,000 mcg tablet 1,000 mcg PO Q48H Supplement 05/14/23
cyclobenzaprine 10 mg tablet 10 mg PO HS Muscle Spasms 05/14/23
ergocalciferol (vitamin D2) 1,250 mcg (50,000 unit) capsule 1,250 mcg PO WE Supplement 05/14/23
hydrocodone 10 mg-acetaminophen 325 mg tablet 1 tab PO QID pain 05/14/23
lidocaine-prilocaine 2.5 %-2.5 % topical cream 1 applic topical Q8HPRN PRN breakthrough mild pain 05/14/23
memantine 10 mg tablet 10 mg PO BID memory/cognition 05/14/23
ondansetron 4 mg disintegrating tablet 4 mg PO BIDPRN PRN nausea 05/14/23
furosemide 40 mg tablet 80 mg PO TUSA Fluid Retention/Swelling 07/13/23
tizanidine 2 mg tablet 2 mg PO BID Muscle Spasms 07/13/23
budesonide-formoterol HFA 160 mcg-4.5 mcg/actuation aerosol inhaler (Symbicort) 2 inh inhalation R BID Lung/Breathing Issues 10/08/23
cranberry 500 mg capsule 4,200 mg PO BID Supplement 03/22/24
pregabalin 25 mg capsule (Lyrica) 25 mg PO TIDPRN PRN neuropathy 03/22/24
potassium chloride 20 mEq tablet,extended release(part/cryst) (Klor-Con M) 20 meq PO BID Electrolyte Repletion 07/07/24
alprazolam 0.5 mg tablet 0.5 mg PO QIDPRN PRN anxiety 07/23/24
furosemide 40 mg tablet (Lasix) 40 mg PO SUMOWETHFR Fluid Retention/Swelling 07/23/24
meclizine 25 mg tablet 25 mg PO TID vertigo/dizziness 08/28/24
tiotropium bromide 18 mcg capsule with inhalation device (Spiriva with HandiHaler) 1 cap inhalation R DAILY Lung/Breathing Issues 08/28/24
azithromycin 250 mg tablet 250 mg PO Q48H INFECTION 10/22/24
benztropine 2 mg tablet 2 mg PO BID Neurological Condition 10/22/24
prednisone 10 mg tablet 10 mg PO DIRECTED #60 tabs 10/28/24
Review of Systems
-
History Source: Patient
A 12 point ROS was completed and negative except as noted: Yes
Physical Exam
Vital Signs
Vital Signs
Temp Pulse Resp BP Pulse Ox
102.8 F H 96 28 156/67 95
11/03/24 15:03 11/03/24 18:00 11/03/24 18:00 11/03/24 18:00 11/03/24 18:00
Physical Exam
General: No Apparent Distress and Other (appears fatigued)
HEENT: PERRLA
Respiratory: No Wheezes (intermittent cough) or Rales
Cardiac: S1/S2, Regular Rhythm and JVD
GI: Soft and Non Tender
Skin: Warm and Dry; No Rash
Neuro: AO x 3
Psych: Calm
Laboratory Results
-
11/03/24 15:26
11/03/24 15:26
Laboratory Results
Lactic Acid 1.2 mmol/L (0.7-2.0) 11/03/24 16:18
Total Bilirubin 0.3 mg/dl (0.2-1.3) 11/03/24 15:26
AST 19 U/L (14-36) 11/03/24 15:26
ALT 20 U/L (0-35) 11/03/24 15:26
Alkaline Phosphatase 89 U/L (38-126) 11/03/24 15:26
Troponin I 0.015 ng/ml 11/03/24 15:28
Data Reviewed
-
Diagnostic Radiology: Report Reviewed by me
Lab Data: Labs Reviewed by me
Impression/Plan
-
Ms. Avis Leslie is a 69 yo woman with hx CVA with cognitive impairment, essential HTN, DM, Bipolar disorder, chronic pain, anxiety/depression/schizoaffective disorder, recurrent hospitalizations for pneumonia (07/11, 09/10, 11/11) represents to
the ER with cough and chest pain. She was found to be hypoxic to 80's on arrival requiring 4L O2.
Triage VS: T 102.8, P 96, RR 18, BP 169/86, SpO2 93%
LABS: WBC 5.8, Hg 11.5, PLT 327, Na 134, K+ 3.7, Cl 99, CO2 27, BUN 16, Cr 0.7, Glucose 172, Lactate 1.1, Ca 8.7, T. Bili 0.3, AST 19, ALT 20, Alk Phos 89, Trop 0.015, Procal 0.06
Covid Negative
Influenza Negative
CXR
IMPRESSION:
Stable moderate left lower lobe pneumonia
MAR: Tylenol, Unayn, Duonebs, NS 500 x 1
Fever
Recurrent pneumonia
Hx Esophageal Dysmotility and concern for recurrent aspiration events
-unclear if patient with new pneumonia versus pneumonitis. Procal negative. However given recurrent infections and patient's frailty will continue IV antibiotics while awaiting input of Pulmonary
-covid and flu negative
-Pulmonary consult
-consider touching base with GI although unclear if more can be done inpatient
-reconsult ST
-NEUROLOGICAL SURGEON prednisone 10mg PO QD
-standing levalbuterol and levalbuterol PRN
Hypoxic Respiratory Insufficiency
Heart Failure preserved EF acute exacerbation
-admit to telemetry
-EF 60-65% on TTE 11/11, mild TR
-patient is on Lasix 80mg TuSa and 40mg other days
-she has elevated JVP on exam and rales
-lasix 80mg IV x 1 now then 40mg IV QD adjust as needed
Essential Hypertension
-Continue valsartan with holding parameters
Hyperlipidemia
-Continue atorvastatin
Asthma, no acute exacerbation
-Continue Symbicort and Spiriva
Hypothyroidism
-Continue levothyroxine
Bipolar Disorder / Schizoaffective Disorder
-Continue alprazolam, mirtazapine
Dementia
-Continue Aricept and Namenda
Chronic Pain Syndrome with Opioid Dependence secondary to Fibromyalgia and Ankylosing Spondylitis
-Continue hydrocodone/acetaminophen
-Continue cyclobenzaprine, tizanidine and lidocaine cream/patch
GERD
-Continue Pepcid and Protonix
Obesity s/p Bariatric Surgery
DVT Proph: Lovenox
Code Status: DNR/DNI
76 minutes spent on patient care
[2024-11-03] MEDS: LASIX 80 MG IV (19:16)
[2024-11-03] MEDS: UNASYN IV (19:45)
[2024-11-03] MEDS: KCL ELIXIR 40 MEQ PO (20:16)
[2024-11-03] MEDS: SYMBICORT 160/4.5 MCG INHALER 2 PUFF INH (21:45)
[2024-11-03] MEDS: ATROVENT NEBULES 0.5 MG INH (21:45)
[2024-11-03] MEDS: XOPENEX 0.63 MG INHALANT SOLUTION INH (21:45)
[2024-11-03] MEDS: XANAX 0.5 MG PO (22:29)
[2024-11-03] MEDS: REMERON 45 MG PO (22:29)
[2024-11-03] MEDS: PEPCID 40 MG PO (22:29)
[2024-11-03] MEDS: FLEXERIL 10 MG PO (22:29)
[2024-11-03] MEDS: ANTIVERT 25 MG PO (22:30)
[2024-11-03] MEDS: NAMENDA 10 MG PO (22:30)
[2024-11-03] MEDS: PROTONIX 40 MG PO (22:30)
[2024-11-03] MEDS: COGENTIN 1 MG PO (22:33)
[2024-11-03] MEDS: ARICEPT 10 MG PO (22:33)
[2024-11-03] MEDS: ZANAFLEX 2 MG PO (22:33)
[2024-11-03] MEDS: TYLENOL 650 MG PO (22:41)
[2024-11-03] MEDS: NORCO 5/325 1 TABLET PO (22:57)
[2024-11-04] VITALS (8 sets, daily range): BP systolic 109–144; BP diastolic 51–88; PULSE 88; O2SAT 94; BMI 29.9
[2024-11-04] MEDS: UNASYN IV ×4 (04:23→21:26)
[2024-11-04] MEDS: TYLENOL 650 MG PO ×3 (04:23→21:21)
[2024-11-04] MEDS: SYNTHROID 50 MCG PO (04:23)
[2024-11-04] MEDS: PROTONIX 40 MG PO ×2 (07:49→21:20)
[2024-11-04] MEDS: ZITHROMAX 250 MG PO (07:49)
[2024-11-04] MEDS: DELTASONE 10 MG PO (07:49)
[2024-11-04] MEDS: PLAVIX 75 MG PO (07:49)
[2024-11-04] MEDS: XANAX 0.5 MG PO ×4 (07:50→21:20)
[2024-11-04] MEDS: DIOVAN 20 MG PO (07:50)
[2024-11-04] MEDS: NAMENDA 10 MG PO ×2 (07:50→21:20)
[2024-11-04] MEDS: ZANAFLEX 2 MG PO ×2 (07:50→21:20)
[2024-11-04] MEDS: LIPITOR 80 MG PO (07:50)
[2024-11-04] MEDS: NORCO 5/325 1 TABLET PO ×2 (07:50→21:21)
[2024-11-04] MEDS: ANTIVERT 25 MG PO ×3 (07:50→21:22)
[2024-11-04] MEDS: COGENTIN 2 MG PO (07:51)
[2024-11-04] MEDS: LASIX 40 MG IV (07:51)
[2024-11-04] MEDS: SPIRIVA RESPIMAT 2.5 MCG 2 PUFF INH (08:14)
[2024-11-04] MEDS: XOPENEX 0.63 MG INHALANT SOLUTION INH ×3 (08:14→19:36)
[2024-11-04] MEDS: ATROVENT NEBULES 0.5 MG INH ×3 (08:14→19:36)
[2024-11-04] MEDS: SYMBICORT 160/4.5 MCG INHALER 2 PUFF INH ×2 (08:15→19:36)
--- NOTE | 2024-11-04 09:31 | CON.PUL ---
Consultation
Consultation Request
Date/Time Consultation Requested: 11/03/2024 - 2243
Date/Time Consultation Performed: 11/04/2024926
Requesting Provider: Dr. Collins
Performing Provider: Dr. Ayala
Reason for Consultation: SOB/Hypoxia
Medical History
-
Chief Complaint: Chest pain + cough and shortness of breath
History of Present Illness:
69-year-old female with a past medical history of severe persistent asthma, history of multiple lung nodules, GERD, chronic cough, fibromyalgia, history of recurrent pneumonia, history of EVELINA that resolved after bariatric surgery, history of
dysphagia, osteoporosis, and history of heart attack who presents with sharp pain in her chest with cough since yesterday afternoon. Also short of breath. Prior admissions patient diagnosed with recurrent pneumonia thought to be due to aspiration
but prior VSE studies completed in December 2022, March 2024 and June 2024 all recommended regular solids/thin liquids with no aspiration noted on any study. Patient was in her usual state of health until 1 day prior to arrival when she started
having a cough with chest pain. Cough was dry and she denied having coughing while eating food or drinking water. Initially in the ER she was febrile to 102.8 �F, pulse rate 96, breathing at 18 breaths/minute, BP 169/86 and saturating 93% on room
air. Initial labs showed normal WBC at 5.8, Hb 11.5, serum sodium 134, troponin negative at 0.015, procalcitonin negative at 0.06, and COVID-19 antigen negative. Flu A/B swab is negative and blood cultures were collected. CXR shows concern for
left lower lobe pneumonia which is stable compared to prior CXR on 10/22/2024. In the ER she was given IVF with 500cc NS 0.9%, DuoNebs, 500 cc bolus of NS 0.9% and 1 g of acetaminophen. She was later give 80 mg IV Lasix. She was admitted to
telemetry and continued on IV Lasix and antibiotics. Pulmonary service now consulted for additional management/recommendations.
When I saw the patient she was resting in bed in no acute distress, currently on 4 L/min and breathing comfortably. She says she feels better overall. Still has a dry cough that she says she has had since earlier this month (October 2024). She
currently denies chest pain at rest, REAL, abdominal pain, nausea, or chills. She continues to spike fevers today which has been as high as 102.8 �F.
Of note patient follows with us in the office with Dr. Szymanski. Last visit with JUDITH Hawkins on 10/19/2024. She is continued on Symbicort + Spiriva for her asthmatic symptoms; also on prednisone 10 mg daily and Zithromax 250 mg 3 times
weekly. Of note she does have a chronic cough which is likely multifactorial from GERD, postnasal drip as well as aspiration; apparently prior barium swallow in December 2023 showed laryngeal penetration with thin and nectar liquids. She has a
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 Patient has a history of recurrent infiltrates and apparently in the past patient received steroids with complete resolution of her infiltrates. She was told to follow-up in 2 months which
will be on 12/07/2024. Last full PFT on 08/24/2024 which showed mild restriction with normal gas exchange capacity and no evidence of obstruction.
PMHx: Severe persistent asthma, history of multiple lung nodules, GERD, arthritis, hyperlipidemia, history of heart attack, migraine headaches, diabetes, fibromyalgia, history of recurrent pneumonia, anemia, history of stroke, osteoarthritis,
osteoporosis, history of EVELINA that resolved after her bariatric surgery, chronic cough, history of dysphagia
PSHx: Cholecystectomy, gastric bypass, hysterectomy, knee replacement, cataract surgery, right hand carpal tunnel (09/2022), left hand carpal tunnel (01/2023)
Past Medical History
Past Medical History: Other (Above as per HPI)
Past Surgical History: Other (Above as per HPI)
Social History
Tobacco: Non-smoker
Alcohol: None
Drug: None
Family History
Family History: Hypertension (Mother) and Other (Father: COPD/emphysema; sibling: History of stroke/TIA)
Allergies / Home Medications
Allergies
Allergy/AdvReac Type Severity Reaction Status Date / Time
celecoxib [From Celebrex] Allergy Unknown Verified 11/03/24 15:03
hydrochlorothiazide Allergy Unknown Verified 11/03/24 15:03
NSAIDS (Non-Steroidal Allergy Gastric Verified 11/03/24 15:03
Anti-Inflamma Bypass
pregabalin [From Lyrica] Allergy Unknown Verified 11/03/24 15:03
promethazine Allergy Unknown Verified 11/03/24 15:03
zolpidem [From Ambien] Allergy Unknown Verified 11/03/24 15:03
Home Medications
�Medication �Instructions �Recorded �Confirmed �Last Taken �Type
famotidine 40 mg tablet 40 mg PO HS Gastrointestinal Issue 05/19/15 11/03/24 10/21/24 History
atorvastatin 80 mg tablet 80 mg PO DAILY High Cholesterol 01/10/23 11/03/24 10/21/24 History
benzonatate 200 mg capsule 200 mg PO TIDPRN PRN cough 01/10/23 11/03/24 Unknown History
clopidogrel 75 mg tablet 75 mg PO DAILY Blood Clot 01/10/23 11/03/24 10/21/24 History
Prevention/Tx
donepezil 10 mg tablet 10 mg PO HS Mental Health/Anxiety 01/10/23 11/03/24 10/21/24 History
levalbuterol tartrate 45 2 inh inhalation R Q6HPRN PRN sob 01/10/23 11/03/24 Unknown History
mcg/actuation aerosol inhaler ##0
(Xopenex HFA)
levothyroxine 50 mcg tablet 50 mcg PO DAILY Thyroid 01/10/23 11/03/24 10/21/24 History
lidocaine 1.8 % topical patch 3 patch topical DAILYPRN PRN b/l 01/10/23 11/03/24 03/22/24 History
(ZTlido) knee,hip and/or lower back
mirtazapine 45 mg tablet 45 mg PO HS Mental Health/Anxiety 01/10/23 11/03/24 10/21/24 History
pantoprazole 40 mg tablet,delayed 40 mg PO BID Gastrointestinal Issue 01/10/23 11/03/24 10/21/24 History
release (Protonix)
valsartan 40 mg tablet 20 mg PO DAILY Blood Pressure 01/10/23 11/03/24 10/21/24 History
cyanocobalamin (vitamin B-12) 1,000 mcg PO Q48H Supplement 05/14/23 11/03/24 10/21/24 History
1,000 mcg tablet
cyclobenzaprine 10 mg tablet 10 mg PO HS Muscle Spasms 05/14/23 11/03/24 10/21/24 History
ergocalciferol (vitamin D2) 1,250 1,250 mcg PO WE Supplement 05/14/23 11/03/24 08/23/24 History
mcg (50,000 unit) capsule
hydrocodone 10 mg-acetaminophen 1 tab PO QID pain 05/14/23 11/03/24 10/21/24 History
325 mg tablet
lidocaine-prilocaine 2.5 %-2.5 % 1 applic topical Q8HPRN PRN 05/14/23 11/03/24 Unknown History
topical cream breakthrough mild pain
memantine 10 mg tablet 10 mg PO BID memory/cognition 05/14/23 11/03/24 10/21/24 History
ondansetron 4 mg disintegrating 4 mg PO BIDPRN PRN nausea 05/14/23 11/03/24 Unknown History
tablet
furosemide 40 mg tablet 80 mg PO TUSA Fluid 07/13/23 11/03/24 10/21/24 History
Retention/Swelling
tizanidine 2 mg tablet 2 mg PO BID Muscle Spasms 07/13/23 11/03/24 10/21/24 History
budesonide-formoterol HFA 160 2 inh inhalation R BID 10/08/23 11/03/24 10/21/24 History
mcg-4.5 mcg/actuation aerosol Lung/Breathing Issues
inhaler (Symbicort)
cranberry 500 mg capsule 4,200 mg PO BID Supplement 03/22/24 11/03/24 10/21/24 History
pregabalin 25 mg capsule (Lyrica) 25 mg PO TIDPRN PRN neuropathy 03/22/24 11/03/24 Unknown History
potassium chloride 20 mEq 20 meq PO BID Electrolyte Repletion 07/07/24 11/03/24 10/21/24 History
tablet,extended
release(part/cryst) (Klor-Con M)
alprazolam 0.5 mg tablet 0.5 mg PO QID 07/23/24 11/03/24 10/21/24 History
furosemide 40 mg tablet (Lasix) 40 mg PO SUMOWETHFR Fluid 07/23/24 11/03/24 08/28/24 History
Retention/Swelling
meclizine 25 mg tablet 25 mg PO TID vertigo/dizziness 08/28/24 11/03/24 10/21/24 History
tiotropium bromide 18 mcg capsule 1 cap inhalation R DAILY 08/28/24 11/03/24 10/21/24 History
with inhalation device (Spiriva Lung/Breathing Issues
with HandiHaler)
azithromycin 250 mg tablet 250 mg PO Q48H INFECTION 10/22/24 11/03/24 Unknown History
benztropine 2 mg tablet 2 mg PO DAILY Neurological 10/22/24 11/03/24 10/21/24 History
Condition
prednisone 10 mg tablet 10 mg PO DIRECTED #60 tabs 10/28/24 11/03/24 Unknown Rx
azelastine 137 mcg-fluticasone 50 1 spray intranasal BID 11/03/24 11/03/24 Unknown History
mcg/spray nasal spray
benztropine 1 mg tablet 1 mg PO BID@1300,2000 11/03/24 11/03/24 Unknown History
calcium 500 mg-vitamin D3 100 1 tab PO DAILY 11/03/24 11/03/24 Unknown History
unit-vitamin K 40 mcg chewable
tablet
Review of Systems
-
History Source: Patient
All other systems: Negative unless noted
Vitals / Labs / Diagnostic Testing
Vital Signs
Temp Pulse Resp BP Pulse Ox
102.1 F H 80 16 124/66 94
11/04/24 07:33 11/04/24 08:20 11/04/24 08:20 11/04/24 07:33 11/04/24 08:20
Microbiology
11/03/24 15:26 Nasal Swab Influenza Types A & B (DEL) - Final
Negative for Influenza A & B, NAAT
Negative results must be combined with clinical observations
and patient history.
Nucleic Acid Amplification test (NAAT)performed on the
[employer] platform.
Diagnostic Testing:
Physical Exam
-
HEENT: Normocephalic and Anicteric
Cardiovascular: S1/S2 and Peripheral Edema (negative)
Respiratory: Rales (Bibasilar), Rhonchi (Bibasilar) and Accessory Resp Muscle Use (negative)
GI: Soft, Non Distended, Non Tender and Normal Bowel Sounds
Neurology: AO x 3 and Tremors (negative)
Skin: Warm and Dry
General: Respiratory Distress (negative), Comfortable, Chills (negative) and Sweats (negative)
Assessment
-
Assessment: 69-year-old female with a past medical history of severe persistent asthma, history of multiple lung nodules, GERD, chronic cough, fibromyalgia, history of recurrent pneumonia, history of EVELINA that resolved after bariatric surgery,
history of dysphagia, osteoporosis, and history of heart attack who presents with sharp pain in her chest with cough since yesterday afternoon. Also short of breath. Prior admissions patient diagnosed with recurrent pneumonia thought to be due to
aspiration but prior VSE studies completed in December 2022, March 2024 and June 2024 all recommended regular solids/thin liquids with no aspiration noted on any study. Patient was in her usual state of health until 1 day prior to arrival when she
started having a cough with chest pain. Cough was dry and she denied having coughing while eating food or drinking water. Initially in the ER she was febrile to 102.8 �F, pulse rate 96, breathing at 18 breaths/minute, BP 169/86 and saturating 93%
on room air. Initial labs showed normal WBC at 5.8, Hb 11.5, serum sodium 134, troponin negative at 0.015, procalcitonin negative at 0.06, and COVID-19 antigen negative. Flu A/B swab is negative and blood cultures were collected. CXR shows
concern for left lower lobe pneumonia which is stable compared to prior CXR on 10/22/2024. In the ER she was given IVF with 500cc NS 0.9%, DuoNebs, 500 cc bolus of NS 0.9% and 1 g of acetaminophen. She was later give 80 mg IV Lasix. She was
admitted to telemetry and continued on IV Lasix and antibiotics. Pulmonary service now consulted for additional management/recommendations.
Chronic conditions PSYCHOLOGY LECTURER: Severe persistent asthma, history of multiple lung nodules, GERD, arthritis, hyperlipidemia, history of heart attack, migraine headaches, diabetes, fibromyalgia, history of recurrent pneumonia, anemia, history of stroke,
osteoarthritis, osteoporosis, history of EVELINA that resolved after her bariatric surgery, chronic cough, history of dysphagia
Impression:
#Acute respiratory failure with hypoxia on supplemental oxygen
#Hypochloremic, hyponatremia
#Hypokalemia
#History of left lower lobe pneumonia with history of recurrent pneumonia
#Hyperglycemia
#Hypomagnesemia
#History of postnasal drip
#Chronic anemia (baseline Hb 9.5�11g/dL)
#Chronic cough
#Severe persistent asthma on Symbicort + Spiriva, Zithromax TIW + prednisone 10 mg daily
#Hypothyroidism
Plan:
- Patient has a very complex pulmonary history
- Patient has chronic opacification in the left retrocardiac/left lower lobe region at least since June 2024
- I feel that this left lower lobe opacification is chronic and considering that she has absent leukocytosis with negative procalcitonin, I am not fully convinced she has a new bacterial pneumonia that needs to be treated
- Okay to continue with empiric antibiotics for now given her fever, but if she remains afebrile going forward with negative blood cultures over the next 48 hours then would stop antibiotics at that time
- Check sputum Cx and legionella and strep PNA urine antigens
- She does have bibasilar rales/rhonchi on exam without lower extremity edema, and admitting physician felt that she had elevated JVP on exam and patient was treated with IV Lasix
- Would check BNP; last echo on 10/27/2024 showed preserved biventricular function with normal RV size, normal LV thickness, normal diastolic function and only mildly elevated PASP 35-40 mmHg (no change compared to prior echo from November 2021)
- Would cautiously continue with diuresis, assuring that her K is >3.5 and Mg>1.8 before additional diuretics are given
- She does carry a history of ILD, and after reviewing her last several CT chest imaging studies, it seems like she has peripheral consolidative opacities, worse in the left hemithorax, which appears in different positions based on recent CT chest
from 08/28/2024 compared to the one on 10/22/2024. Interestingly, her CT chest from 04/24/2024 showed subtle groundglass opacifications bilaterally with lower lobe predominant bronchial wall thickening and inferior lingular atelectasis, majority of her
imaging from all of 2022 showed no evidence of pneumonia or ILD.
- Her latest CT imaging studies could be due to organizing pneumonia; I do not see that she ever had a bronchoscopy but perhaps this can be discussed as an outpatient for airway survey with BAL and possibly transbronchial biopsy if interstitial
abnormalities persist especially on the left side
- Even though she is on prednisone 10mgm daily, I will still check CRP and ESR in addition to HP-panel and CTD-panel. Hold off on raising her home dose of systemic steroids at this time; if hypoxia worsens or fails to improve despite ABx and
diuretics, would start high dose systemic steroids at that time
- Pain control
- Antitussants as needed
- If mucous develops then start mucinex and give acapella
- Maintain SpO2 >90-94% with supplemental O2 and wean down as tolerated
- She takes Symbicort and spiriva as an outpatient with zithromycin and chronic prednisone 10mg daily --> resume all this while hospitalized
- Trend QTc (459ms currently)
- prn nebulized bronchodilators - not currently bronchospastic
- Continue xopenex and atrovent TID
- Incentive spirometer encouraged q1hr while awake
- Replete electrolytes with K>4, Mg>2
- Maintain euglycemia with goal BG >100 and <180
- DVT ppx: LMWH
Pulmonary service will continue to follow along. Once discharged we will ensure patient has follow-up with our office with Dr. Szymanski, as last visit was with JUDITH Hawkins on 10/19/2024.
Data:
CT chest/abdomen/pelvis with IV contrast 10/22/2024:
1. Multifocal pneumonia in both lungs, left greater than right.
2. CT findings suspicious for a mild enterocolitis, likely inflammatory or infectious.
Total time spent today was 56 minutes for this encounter. Time includes reviewing laboratory test/imaging results, reviewing pertinent medical records, obtaining and reviewing medical history, performing an appropriate exam, ordering medications,
tests and procedures. Time also includes documentation of this encounter, coordinating patient care and communicating with other healthcare professionals. Total time does not include separately billed tests performed on this date of service.
[2024-11-04 09:46] LABS: % Basophils 0.3 % (0-2); % Immature Granulocytes 0.6 % (0-0.5); % Lymphocytes 4.1 % (20.5-51.1); % Monocytes 4.7 % (1.7-9.3); % Neutrophils 90.3 % (42.2-75.2); Absolute Lymphocytes 0.3 10^3/uL (1.2-3.4); Absolute Monocytes 0.3 10^3/uL (0.1-0.6); Absolute Neutrophils 5.9 10^3/uL (1.4-6.5); Hematocrit 35.8 % (37.0-47.0); Hemoglobin 11.6 g/dL (12.0-16.0); Mean Corp Hgb Conc. 32.4 g/dL (33.0-37.0); Mean Corpuscular Hgb 28.5 pg (27.0-31.0); Mean Platelet Volume 9.2 fL (7.4-10.4); Nucleated Red Blood Cells % 0 %; Platelet Count 304 10^3/uL (130-400); Red Blood Cell Count 4.07 10^6/uL (4.20-5.40); Red Cell Dist. Width 14.1 % (11.5-14.5); White Blood Cell Count 6.6 10^3/uL (4.8-10.8)
[2024-11-04 10:05] LABS: Blood Urea Nitrogen 13 mg/dl (7-17); Carbon Dioxide 28 mmol/L (22-30); Chloride 94 mmol/L (98-107); Estimated Creatinine Clearance 88 ml/min; Glucose 192 mg/dl (70-99); Magnesium 1.4 mg/dl (1.6-2.3); Potassium 3.1 mmol/L (3.5-5.1); Sodium 133 mmol/L (135-145); eGFR > 60.00
--- NOTE | 2024-11-04 10:47 | PTOTSP ---
Speech Therapy
Presentation: Patient was oriented. Patient's speech and language appeared to be WNL. Patient's vocal quality was minimally weak which may be related to patient's current mental state (wax/ wane alertness).
Previous VSEs 07/10/24, 03/23/24, 01/12/23: All VSEs recommended regular consistency solids and thin liquids. No aspiration noted.
Swallowing Function: Patient was observed with thin liquids via straw and bites of cracker in which patient appeared to tolerate as she did not exhibit any overt clinical s/sx of aspiration. Patient's intake was limited due to patient's reported
poor appetite. Patient demonstrated prolonged mastication of cracker which an independent thin liquid wash assisted with propelling of bolus.
Per RN, patient tolerated medications whole with thin liquid wash.
Recommendations:
1) Continuation of regular consistency solids and thin liquids
2) Standard aspiration precautions
3) PO only when ALERT
4) Consideration of VSE given recurrent pna
5) Medications as tolerated
Plan: [employer] will continue to follow; pending hospitalization.
--- NOTE | 2024-11-04 11:09 | W.PN.HOSP.TC ---
Today's Communication/Plan
-
IV abx
IV diuresis
wean o2 as tolerated
replete kcl and mag
Assessment / Plan
Assessment / Plan
General: No Apparent Distress and Other (appears fatigued)
HEENT: PERRLA
Respiratory: No Wheezes (intermittent cough) or Rales
Cardiac: S1/S2, Regular Rhythm and JVD
GI: Soft and Non Tender
Skin: Warm and Dry; No Rash
Neuro: AO x 3
Psych: Calm
Ms. Avis Leslie is a 69 yo woman with hx CVA with cognitive impairment, essential HTN, DM, Bipolar disorder, chronic pain, anxiety/depression/schizoaffective disorder, recurrent hospitalizations for pneumonia (07/11, 09/10, 11/11) represents to
the ER with cough and chest pain. She was found to be hypoxic to 80's on arrival requiring 4L O2.
CXR
IMPRESSION:
Stable moderate left lower lobe pneumonia
Fever
Recurrent pneumonia
Hx Esophageal Dysmotility and concern for recurrent aspiration events
-unclear if patient with new pneumonia versus pneumonitis. Procal negative. However given recurrent infections and patient's frailty will continue IV antibiotics
-covid and flu negative
-Pulmonary consult
-reconsult ST
-Covid Negative and Influenza Negative
-VSE ordered. per speech okay for regular diet
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
-standing levalbuterol and levalbuterol PRN
Acute Hypoxic Respiratory Insufficiency
Heart Failure preserved EF acute exacerbation
Hypokalemia/hypomag-replete/monitor
-EF 60-65% on TTE 11/11, mild TR
-patient is on Lasix 80mg TuSa and 40mg other days
-she has elevated JVP on exam and rales
-lasix 80mg IV x 1 now then 40mg IV QD adjust as needed
-Check probnp in am
Essential Hypertension
-Continue valsartan with holding parameters
Hyperlipidemia
-Continue atorvastatin
Asthma, no acute exacerbation
-Continue Symbicort and Spiriva
Hypothyroidism
-Continue levothyroxine
Bipolar Disorder / Schizoaffective Disorder
-Continue alprazolam, mirtazapine
Dementia
-Continue Aricept and Namenda
Chronic Pain Syndrome with Opioid Dependence secondary to Fibromyalgia and Ankylosing Spondylitis
-Continue hydrocodone/acetaminophen
-Continue cyclobenzaprine, tizanidine and lidocaine cream/patch
GERD
-Continue Pepcid and Protonix
Obesity s/p Bariatric Surgery
DVT Proph: Lovenox
Code Status: DNR/DNI
Anticipated Discharge: > 48 hours
Subjective/Interval History
-
Date of Service: November 04, 2024
states feeling tired
on oxygen
intermittent cough
Objective Data
-
Labs:
Laboratory Results
11/04/24
09:20
WBC 6.6
Hgb 11.6 L
Hct 35.8 L
Plt Count 304
Sodium 133 L
Potassium 3.1 L
Chloride 94 L
Carbon Dioxide 28
BUN 13
Creatinine 0.7
Glucose 192 H
Calcium 8.0 L
Vital Signs:
Vital Signs
Temp Pulse Resp BP Pulse Ox
102.1 F H 80 16 124/66 94
11/04/24 07:33 11/04/24 08:20 11/04/24 08:20 11/04/24 07:33 11/04/24 08:20
I&O
11/03/24 11/04/24 11/05/24
06:59 06:59 06:59
Output Total 2600 / 2600
Balance -2600 / -2600
Data Reviewed
-
Total Time Spent with Patient (in minutes): 58
[2024-11-04] MEDS: KCL 40 MEQ PO (11:32)
[2024-11-04] MEDS: MAGNESIUM SULFATE 100 IV (11:33)
[2024-11-04] MEDS: COGENTIN 1 MG PO ×2 (12:28→21:21)
[2024-11-04] MEDS: LOVENOX 40 MG SC (16:43)
--- NOTE | 2024-11-04 17:20 | CM ---
Alert awake oriented patient who lives with her brother Flaco in a 1 story home with 1 step to enter and bed/bathroom first floor. She is independent in activates of daily living.She does drive .She has no adaptive devices.
Had [facility] in past . No SNF hx
Pharmacy [place]
PCP Dr Gamino
PLAN will need PT OT eval for dc plan
[2024-11-04] MEDS: REMERON 45 MG PO (21:20)
[2024-11-04] MEDS: PEPCID 40 MG PO (21:20)
[2024-11-04] MEDS: LYRICA 25 MG PO (21:20)
[2024-11-04] MEDS: FLEXERIL 10 MG PO (21:20)
[2024-11-04] MEDS: ARICEPT 10 MG PO (21:20)
[2024-11-05] MEDS: LYRICA 25 MG PO (02:37)
[2024-11-05] MEDS: NORCO 5/325 1 TABLET PO ×2 (02:37→11:17)
[2024-11-05] MEDS: TYLENOL 650 MG PO ×2 (02:37→19:43)
[2024-11-05] MEDS: UNASYN IV ×4 (02:38→19:44)
[2024-11-05] MEDS: SYNTHROID 50 MCG PO (03:17)
[2024-11-05 03:26] VITALS: BP 104/58
[2024-11-05 05:12] VITALS: BMI 30.1
[2024-11-05 07:30] LABS: % Basophils 0.5 % (0-2); % Immature Granulocytes 0.5 % (0-0.5); % Lymphocytes 16.2 % (20.5-51.1); % Monocytes 7.3 % (1.7-9.3); % Neutrophils 75.5 % (42.2-75.2); Absolute Lymphocytes 0.6 10^3/uL (1.2-3.4); Absolute Monocytes 0.3 10^3/uL (0.1-0.6); Absolute Neutrophils 2.9 10^3/uL (1.4-6.5); Hematocrit 36.1 % (37.0-47.0); Hemoglobin 11.6 g/dL (12.0-16.0); Mean Corp Hgb Conc. 32.1 g/dL (33.0-37.0); Mean Corpuscular Hgb 28.8 pg (27.0-31.0); Mean Corpuscular Volume 89.6 fL (81.0-99.0); Nucleated Red Blood Cells % 0 %; Platelet Count 267 10^3/uL (130-400); Red Blood Cell Count 4.03 10^6/uL (4.20-5.40); Red Cell Dist. Width 14.3 % (11.5-14.5); White Blood Cell Count 3.8 10^3/uL (4.8-10.8)
[2024-11-05] MEDS: SYMBICORT 160/4.5 MCG INHALER 2 PUFF INH ×2 (07:33→18:08)
[2024-11-05] MEDS: ATROVENT NEBULES 0.5 MG INH ×3 (07:33→18:07)
[2024-11-05] MEDS: SPIRIVA RESPIMAT 2.5 MCG 2 PUFF INH (07:33)
[2024-11-05] MEDS: XOPENEX 0.63 MG INHALANT SOLUTION INH ×3 (07:39→18:08)
[2024-11-05 07:55] VITALS: BP 119/64
[2024-11-05 08:08] LABS: Blood Urea Nitrogen 16 mg/dl (7-17); Calcium 7.6 mg/dl (8.4-10.2); Carbon Dioxide 30 mmol/L (22-30); Chloride 95 mmol/L (98-107); Creatine Phosphokinase 71 U/L (30-135); Estimated Creatinine Clearance 88 ml/min; Glucose 106 mg/dl (70-99); Potassium 3.7 mmol/L (3.5-5.1); Sodium 134 mmol/L (135-145); eGFR > 60.00
--- NOTE | 2024-11-05 09:16 | W.PN.PUL3 ---
Today's Communication / Plan
-
Xopenex, Spiriva + Symbicort
Atrovent DC'd given that she is on Spiriva
s/p IV Lasix x 2 days, now on hold, continue to monitor volume status
Maintain SpO2 >90%
Up OOB as tolerated
Tessalon Perles
CRP level is elevated at 128.2 � if hypoxia worsens or fails to improve despite ABx and diuretics, would start high dose systemic steroids at that time
Empiric antibiotics
Pulmonary will continue to follow along
Assessment
-
Assessment: 69-year-old female with a past medical history of severe persistent asthma, history of multiple lung nodules, GERD, chronic cough, fibromyalgia, history of recurrent pneumonia, history of EVELINA that resolved after bariatric surgery,
history of dysphagia, osteoporosis, and history of heart attack who presents with sharp pain in her chest with cough since yesterday afternoon. Also short of breath. Prior admissions patient diagnosed with recurrent pneumonia thought to be due to
aspiration but prior VSE studies completed in December 2022, March 2024 and June 2024 all recommended regular solids/thin liquids with no aspiration noted on any study. Patient was in her usual state of health until 1 day prior to arrival when she
started having a cough with chest pain. Cough was dry and she denied having coughing while eating food or drinking water. Initially in the ER she was febrile to 102.8 �F, pulse rate 96, breathing at 18 breaths/minute, BP 169/86 and saturating 93%
on room air. Initial labs showed normal WBC at 5.8, Hb 11.5, serum sodium 134, troponin negative at 0.015, procalcitonin negative at 0.06, and COVID-19 antigen negative. Flu A/B swab is negative and blood cultures were collected. CXR shows
concern for left lower lobe pneumonia which is stable compared to prior CXR on 10/22/2024. In the ER she was given IVF with 500cc NS 0.9%, DuoNebs, 500 cc bolus of NS 0.9% and 1 g of acetaminophen. She was later give 80 mg IV Lasix. She was
admitted to telemetry and continued on IV Lasix and antibiotics. Pulmonary service now consulted for additional management/recommendations.
Chronic conditions REGIONAL MANAGER: Severe persistent asthma, history of multiple lung nodules, GERD, arthritis, hyperlipidemia, history of heart attack, migraine headaches, diabetes, fibromyalgia, history of recurrent pneumonia, anemia, history of stroke,
osteoarthritis, osteoporosis, history of EVELINA that resolved after her bariatric surgery, chronic cough, history of dysphagia
Impression:
#Acute respiratory failure with hypoxia on supplemental oxygen
#Hypochloremic, hyponatremia
#Hypokalemia
#History of left lower lobe pneumonia with history of recurrent pneumonia
#Hyperglycemia - improved
#Hypomagnesemia
#History of postnasal drip
#Chronic anemia (baseline Hb 9.5�11g/dL)
#Chronic cough
#Severe persistent asthma on Symbicort + Spiriva, Zithromax TIW + prednisone 10 mg daily
#Hypothyroidism
Plan:
- Patient has a very complex pulmonary history
- Patient has chronic opacification in the left retrocardiac/left lower lobe region at least since June 2024
- I feel that this left lower lobe opacification is chronic and considering that she has absent leukocytosis with negative procalcitonin, I am not fully convinced she has a new bacterial pneumonia that needs to be treated
- Okay to continue with empiric antibiotics for now given her fever, but if she remains afebrile going forward with negative blood cultures over the next 48 hours then would stop antibiotics at that time
- Check sputum Cx; legionella and strep PNA urine antigens both negative
- She does have bibasilar rales/rhonchi on exam without lower extremity edema, and admitting physician felt that she had elevated JVP on exam and patient was treated with IV Lasix
- BNP low at 112; last echo on 10/27/2024 showed preserved biventricular function with normal RV size, normal LV thickness, normal diastolic function and only mildly elevated PASP 35-40 mmHg (no change compared to prior echo from November 2021)
- s/p diuresis (last dose 11/05) and now on hold; keep K is >3.5 and Mg>1.8
- She does carry a history of ILD, and after reviewing her last several CT chest imaging studies, it seems like she has peripheral consolidative opacities, worse in the left hemithorax, which appears in different positions based on recent CT chest
from 08/28/2024 compared to the one on 10/22/2024. Interestingly, her CT chest from 04/24/2024 showed subtle groundglass opacifications bilaterally with lower lobe predominant bronchial wall thickening and inferior lingular atelectasis, majority of her
imaging from all of 2022 showed no evidence of pneumonia or ILD.
- Her latest CT imaging studies could be due to organizing pneumonia; I do not see that she ever had a bronchoscopy but perhaps this can be discussed as an outpatient for airway survey with BAL and possibly transbronchial biopsy if interstitial
abnormalities persist especially on the left side
- CRP level is elevated at 128, ESR is WNL at 7; HP-panel and CTD-panel pending. Hold off on raising her home dose of systemic steroids at this time; if hypoxia worsens or fails to improve despite ABx and diuretics, would start high dose
systemic steroids at that time
- Pain control
- Antitussants as needed
- If mucous develops then start mucinex and give acapella
- Maintain SpO2 >90-94% with supplemental O2 and wean down as tolerated
- She takes Symbicort and spiriva as an outpatient with zithromycin and chronic prednisone 10mg daily --> resume all this while hospitalized
- Trend QTc (459ms currently)
- prn nebulized bronchodilators - not currently bronchospastic
- Continue xopenex TID; DC atrovent given she is already on spiriva
- Incentive spirometer encouraged q1hr while awake
- Replete electrolytes with K>4, Mg>2
- Maintain euglycemia with goal BG >100 and <180
- DVT ppx: LMWH
Pulmonary service will continue to follow along. Once discharged we will ensure patient has follow-up with our office with Dr. Szymanski, as last visit was with JUDITH Hawkins on 10/19/2024.
Data:
CT chest/abdomen/pelvis with IV contrast 10/22/2024:
1. Multifocal pneumonia in both lungs, left greater than right.
2. CT findings suspicious for a mild enterocolitis, likely inflammatory or infectious.
Total time spent today was 36 minutes for this encounter. Time includes reviewing laboratory test/imaging results, reviewing pertinent medical records, obtaining and reviewing medical history, performing an appropriate exam, ordering medications,
tests and procedures. Time also includes documentation of this encounter, coordinating patient care and communicating with other healthcare professionals. Total time does not include separately billed tests performed on this date of service.
Subjective Data
-
Date of Service:
Date of Service: November 05, 2024
Chief Complaint: Pulmonary Follow Up
Subjective:
Pt seen this AM (late note entry). She still endorses dry cough. Remains on 1L/min, and still has SOB with activity. Denies chest pain, REAL, abd pain, N/V/f/c.
Review of Systems
General: Other (negative unless mentioned above)
Objective Data
Data Reviewed
Vital Signs / I&O / Oxygen:
Vital Signs
Temp Pulse Resp BP Pulse Ox
98.0 F 66 16 119/64 96
11/05/24 07:55 11/05/24 07:55 11/05/24 07:55 11/05/24 07:55 11/05/24 07:55
Intake and Output
11/04/24 11/05/24 11/06/24
06:59 06:59 06:59
Intake Total 120 / 120
Output Total 2600 / 2600 850 / 850
Balance -2600 / -2600 -730 / -730
SaO2 96
Nasal Cannula flow liters per 2
minute
Physical Exam
General: Respiratory Distress (negative), Comfortable, Chills (negative) and Sweats (negative)
HEENT: Normocephalic and Anicteric
Cardiovascular: S1-S2, Murmur (negative), Rub (negative) and Peripheral Edema (trace LE edema b/l)
Respiratory: Wheeze (negative), Crackles (bibasilar), Rhonchi (negative), Non-Labored Respirations and Stridor (negative)
GI: Soft, Non Distended, Non Tender and Normal Bowel Sounds
Neurology: AO x 3 and Tremors (negative)
Skin: Warm, Dry, Cyanosis (negative) and Jaundice (negative)
Labs/Micro/Reports
Lab Data
11/05/24 06:45
11/05/24 06:45
Microbiology
11/05/24 03:22 Urine Legionella Urinary Antigen - Final
Negative for Legionella pneumophila Serogroup 1 antigen.
A negative result does not rule out the possiblity of
Legionella infection due to other serogroups or species of
Legionella. Clinical correlation is recommended.
11/05/24 03:22 Urine Streptococcus pneumoniae Antigen (M - Final
Negative for Streptococcus pneumoniae antigen.
A negative result does not exclude infection with
Streptococcus pneumoniae. Clinical correlation is
recommended.
11/03/24 16:18 Blood/Venous Blood Culture - Preliminary
No Growth in 24 hours- Final report to follow
11/03/24 16:18 Blood/Venous Blood Culture - Preliminary
No Growth in 24 hours- Final report to follow
11/04/24 15:12 Nasalpharynx Respiratory Syncytial Virus Ag - Final
Negative for Respiratory Syncytial Virus.
A false negative result may be obtained with a specimen
collected early in the acute phase. If symptoms persist, a
new specimen should be tested.
11/03/24 15:26 Nasal Swab Influenza Types A & B (DEL) - Final
Negative for Influenza A & B, NAAT
Negative results must be combined with clinical observations
and patient history.
Nucleic Acid Amplification test (NAAT)performed on the
[employer] platform.
[2024-11-05 10:06] LABS: Erythrocyte Sed Rate 7 mm/hour (0-20)
[2024-11-05 11:11] VITALS: BP 137/68
[2024-11-05] MEDS: LASIX 40 MG IV (11:12)
[2024-11-05] MEDS: DIOVAN 20 MG PO (11:13)
[2024-11-05] MEDS: XANAX 0.5 MG PO ×4 (11:13→22:12)
[2024-11-05] MEDS: COGENTIN 2 MG PO (11:13)
[2024-11-05] MEDS: LIPITOR 80 MG PO (11:13)
[2024-11-05] MEDS: NAMENDA 10 MG PO ×2 (11:13→19:44)
[2024-11-05] MEDS: PROTONIX 40 MG PO ×2 (11:13→19:44)
[2024-11-05] MEDS: PLAVIX 75 MG PO (11:13)
[2024-11-05] MEDS: DELTASONE 10 MG PO (11:13)
[2024-11-05] MEDS: ZANAFLEX 2 MG PO ×2 (11:13→19:44)
[2024-11-05] MEDS: ANTIVERT 25 MG PO ×3 (11:14→22:11)
[2024-11-05] MEDS: TYLENOL 325 MG PO (11:17)
[2024-11-05] MEDS: TESSALON PERLES 200 MG PO ×2 (11:17→17:44)
--- NOTE | 2024-11-05 12:59 | W.PN.HOSP.TC ---
Today's Communication/Plan
-
Hold IV lasix
check probnp
wean o2
VSE in am
trend fever curve
Pulm recs
await auto-immune bloodwork
Assessment / Plan
Assessment / Plan
General: No Apparent Distress and Other (appears fatigued)
HEENT: PERRLA
Respiratory: mild rhonchi, oxygen
Cardiac: S1/S2, Regular Rhythm
GI: Soft and Non Tender
MSK-LE with trace edema
Skin: Warm and Dry; No Rash
Neuro: AO x 3
Psych: Calm
Ms. Avis Leslie is a 69 yo woman with hx CVA with cognitive impairment, essential HTN, DM, Bipolar disorder, chronic pain, anxiety/depression/schizoaffective disorder, recurrent hospitalizations for pneumonia (07/11, 09/10, 11/11) represents to
the ER with cough and chest pain. She was found to be hypoxic to 80's on arrival requiring 4L O2.
CXR
IMPRESSION:
Stable moderate left lower lobe pneumonia
Fever
Recurrent pneumonia
Hx Esophageal Dysmotility and concern for recurrent aspiration events
-unclear if patient with new pneumonia versus pneumonitis. Procal negative. However given recurrent infections and patient's frailty will continue IV antibiotics
-covid and flu negative
-Pulmonary consult
-reconsult ST
-Covid Negative and Influenza Negative
-VSE ordered. per speech okay for regular diet
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
-standing levalbuterol and levalbuterol PRN
-auto-immune work up started per pulm. Seems Chronic left lung infiltration.
-If no improvement in fever curve, may need ID input.
Acute Hypoxic Respiratory Insufficiency
Mild acute on chronic HFpEF
Hypokalemia/hypomag-replete/monitor
-EF 60-65% on TTE 11/11, mild TR
-patient is on Lasix 80mg TuSa and 40mg other days
-she has elevated JVP on exam and rales
-hold further IV lasix.
-Check probnp
Essential Hypertension
-Continue valsartan with holding parameters
Hyperlipidemia
-Continue atorvastatin
Asthma, no acute exacerbation
-Continue Symbicort and Spiriva
Hypothyroidism
-Continue levothyroxine
Bipolar Disorder / Schizoaffective Disorder
-Continue alprazolam, mirtazapine
Dementia
-Continue Aricept and Namenda
Chronic Pain Syndrome with Opioid Dependence secondary to Fibromyalgia and Ankylosing Spondylitis
-Continue hydrocodone/acetaminophen
-Continue cyclobenzaprine, tizanidine and lidocaine cream/patch
GERD
-Continue Pepcid and Protonix
Obesity s/p Bariatric Surgery
DVT Proph: Lovenox
Code Status: DNR/DNI
Anticipated Discharge: > 48 hours
Subjective/Interval History
-
Date of Service: November 05, 2024
states has autoimmune condition
walked to bathroom
Objective Data
-
Labs:
Laboratory Results
11/05/24
06:45
WBC 3.8 L
Hgb 11.6 L
Hct 36.1 L
Plt Count 267
Sodium 134 L
Potassium 3.7
Chloride 95 L
Carbon Dioxide 30
BUN 16
Creatinine 0.7
Glucose 106 H
Calcium 7.6 L
Vital Signs:
Vital Signs
Temp Pulse Resp BP Pulse Ox
100.8 F H 84 24 137/68 93
11/05/24 11:11 11/05/24 11:11 11/05/24 11:11 11/05/24 11:11 11/05/24 11:28
I&O
11/04/24 11/05/24 11/06/24
06:59 06:59 06:59
Intake Total 120 / 120
Output Total 2600 / 2600 850 / 850
Balance -2600 / -2600 -730 / -730
Data Reviewed
-
Total Time Spent with Patient (in minutes): 55
[2024-11-05 14:14] LABS: Magnesium 2.6 mg/dl (1.6-2.3)
[2024-11-05] MEDS: COGENTIN 1 MG PO ×2 (14:31→22:12)
[2024-11-05 15:06] LABS: NT-proBNP 112 pg/ml
[2024-11-05 15:28] VITALS: BP 94/51
--- NOTE | 2024-11-05 15:30 | PTCARENOTE ---
Tessalon pearls given for frequent NPC with good relief. Patient OOb with steady gait to bathroom. Patient slept most of the day.
[2024-11-05] MEDS: LOVENOX 40 MG SC (17:35)
[2024-11-05 19:40] VITALS: BP 95/59
[2024-11-05] MEDS: ARICEPT 10 MG PO (22:11)
[2024-11-05] MEDS: PEPCID 40 MG PO (22:11)
[2024-11-05] MEDS: REMERON 45 MG PO (22:11)
[2024-11-05] MEDS: FLEXERIL PO (22:12)
[2024-11-05 23:05] VITALS: BP 89/45
[2024-11-06] VITALS (7 sets, daily range): BP systolic 96–164; BP diastolic 46–79; BMI 29.3
[2024-11-06] MEDS: UNASYN IV ×4 (02:44→20:44)
[2024-11-06] MEDS: NORCO 5/325 1 TABLET PO ×3 (02:49→18:16)
[2024-11-06] MEDS: SYNTHROID 50 MCG PO (06:18)
[2024-11-06] MEDS: SYMBICORT 160/4.5 MCG INHALER 2 PUFF INH ×2 (07:18→20:13)
[2024-11-06] MEDS: XOPENEX 0.63 MG INHALANT SOLUTION INH ×3 (07:18→20:13)
[2024-11-06] MEDS: SPIRIVA RESPIMAT 2.5 MCG 2 PUFF INH (07:18)
[2024-11-06] MEDS: LIPITOR 80 MG PO (08:28)
[2024-11-06] MEDS: DIOVAN 20 MG PO (08:28)
[2024-11-06] MEDS: ZITHROMAX 250 MG PO (08:28)
[2024-11-06] MEDS: XANAX 0.5 MG PO ×4 (08:28→22:13)
[2024-11-06] MEDS: COGENTIN 2 MG PO (08:32)
[2024-11-06] MEDS: PROTONIX 40 MG PO ×2 (08:32→20:44)
[2024-11-06] MEDS: ZANAFLEX 2 MG PO ×2 (08:33→20:45)
[2024-11-06] MEDS: PLAVIX 75 MG PO (08:33)
[2024-11-06] MEDS: TESSALON PERLES 200 MG PO ×2 (08:33→17:40)
[2024-11-06] MEDS: DELTASONE 10 MG PO (08:33)
[2024-11-06] MEDS: NAMENDA 10 MG PO ×2 (08:33→20:45)
[2024-11-06] MEDS: ANTIVERT 25 MG PO ×3 (08:33→22:13)
[2024-11-06 09:05] LABS: % Basophils 0.4 % (0-2); % Eosinophils 0.4 % (0-6); % Immature Granulocytes 0.8 % (0-0.5); % Monocytes 11.7 % (1.7-9.3); % Neutrophils 50.7 % (42.2-75.2); Absolute Lymphocytes 0.9 10^3/uL (1.2-3.4); Absolute Monocytes 0.3 10^3/uL (0.1-0.6); Absolute Neutrophils 1.2 10^3/uL (1.4-6.5); Hematocrit 33.4 % (37.0-47.0); Hemoglobin 11.1 g/dL (12.0-16.0); Mean Corp Hgb Conc. 33.2 g/dL (33.0-37.0); Mean Corpuscular Hgb 29.1 pg (27.0-31.0); Mean Corpuscular Volume 87.4 fL (81.0-99.0); Mean Platelet Volume 9.2 fL (7.4-10.4); Nucleated Red Blood Cells % 0 %; Platelet Count 235 10^3/uL (130-400); Red Blood Cell Count 3.82 10^6/uL (4.20-5.40); Red Cell Dist. Width 13.9 % (11.5-14.5); White Blood Cell Count 2.4 10^3/uL (4.8-10.8)
[2024-11-06 09:27] LABS: Blood Urea Nitrogen 16 mg/dl (7-17); Carbon Dioxide 31 mmol/L (22-30); Chloride 93 mmol/L (98-107); Estimated Creatinine Clearance 87 ml/min; Glucose 93 mg/dl (70-99); Potassium 3.5 mmol/L (3.5-5.1); Sodium 132 mmol/L (135-145); eGFR > 60.00
--- NOTE | 2024-11-06 10:01 | W.PN.HOSP.TC ---
Today's Communication/Plan
-
VSE today
IV abx
fever curve improving
pulm recs
Assessment / Plan
Assessment / Plan
General: No Apparent Distress and Other (appears fatigued)
HEENT: neck is supple,
Respiratory: mild rhonchi,
Cardiac: S1/S2, Regular Rhythm
GI: Soft and Non Tender
MSK-LE with edema
Skin: Warm and Dry; No Rash
Neuro: AO x 3
Psych: Calm
Ms. Avis Leslie is a 69 yo woman with hx CVA with cognitive impairment, essential HTN, DM, Bipolar disorder, chronic pain, anxiety/depression/schizoaffective disorder, recurrent hospitalizations for pneumonia (07/11, 09/10, 11/11) represents to
the ER with cough and chest pain. She was found to be hypoxic to 80's on arrival requiring 4L O2.
CXR
IMPRESSION:
Stable moderate left lower lobe pneumonia
Fever
Recurrent pneumonia
Hx Esophageal Dysmotility and concern for recurrent aspiration events
-unclear if patient with new pneumonia versus pneumonitis. Procal negative. However given recurrent infections and patient's frailty will continue IV antibiotics
-covid and flu negative
-Pulmonary consult
-reconsult ST
-Covid Negative and Influenza Negative
-VSE ordered. per speech okay for regular diet
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
-standing levalbuterol and levalbuterol PRN. Spirvia and symbicort.
-auto-immune work up started per pulm. Seems Chronic left lung infiltration.
-Barium Esophagram appreciated esophageal dysmotility, likely source of recurrent pneumonias
-fever curve improving
Acute Hypoxic Respiratory Insufficiency
Mild acute on chronic HFpEF
Hypokalemia/hypomag-replete/monitor
-EF 60-65% on TTE 11/11, mild TR
-patient is on Lasix 80mg TuSa and 40mg other days
-she has elevated JVP on exam and rales
-Probnp noted. Stop IV lasix and restart home po lasix 80/40mg regimen. KCL.
Mild hyponatremia
-monitor for now
esophageal dysmotility, likely source of recurrent pneumonias
speech eval, cont PPI BID, outpt esophageal manometry testing
Vse pending for today
Essential Hypertension
-Continue valsartan with holding parameters
Hyperlipidemia
-Continue atorvastatin
Asthma, no acute exacerbation
-Continue Symbicort and Spiriva
Hypothyroidism
-Continue levothyroxine
Bipolar Disorder / Schizoaffective Disorder
-Continue alprazolam, mirtazapine
Dementia
-Continue Aricept and Namenda
Chronic Pain Syndrome with Opioid Dependence secondary to Fibromyalgia and Ankylosing Spondylitis
-Continue hydrocodone/acetaminophen
-Continue cyclobenzaprine, tizanidine and lidocaine cream/patch
Arthirtis
GERD
-Continue Pepcid and Protonix
Chronic Lower Extremity Lymphedema
-home Lasix resumed
Obesity s/p Bariatric Surgery
DVT Proph: Lovenox
Code Status: DNR/DNI
Anticipated Discharge: > 48 hours
Subjective/Interval History
-
Date of Service: November 06, 2024
states of sob with exertion
no chest pain
99% on 2L -plan to wean off o2
Objective Data
-
Labs:
Laboratory Results
11/06/24
08:27
WBC 2.4 L*
Hgb 11.1 L
Hct 33.4 L
Plt Count 235
Sodium 132 L
Potassium 3.5
Chloride 93 L
Carbon Dioxide 31 H
BUN 16
Creatinine 0.7
Glucose 93
Calcium 8.0 L
Vital Signs:
Vital Signs
Temp Pulse Resp BP Pulse Ox
98.1 F 71 18 111/54 99
11/06/24 07:30 11/06/24 08:28 11/06/24 07:30 11/06/24 08:28 11/06/24 07:30
I&O
11/05/24 11/06/24 11/07/24
06:59 06:59 06:59
Intake Total 120 / 120 1919
Output Total 850 / 850
Balance -730 / -730 1919
Data Reviewed
-
Total Time Spent with Patient (in minutes): 55
[2024-11-06] MEDS: VITAMIN B-12 1000 MCG PO (12:47)
[2024-11-06] MEDS: COGENTIN 1 MG PO ×2 (12:47→20:52)
[2024-11-06] MEDS: LASIX 40 MG PO (12:51)
--- NOTE | 2024-11-06 12:56 | W.PN.PUL3 ---
Today's Communication / Plan
-
Stable on RA, no new complaints
She has SOB with exertion but this is likely due to deconditioning
Recurrent asp PNA is likely, she has chronic opacification on her CXR -- on abx but could stop and observe off
If 5 day course if preferred can stop on 11/08
Encouraged OOB, resumed on her home meds
D/c planning per team otherwise
FU outpatient in our office
Assessment
-
69-year-old female with a past medical history of severe persistent asthma, history of multiple lung nodules, GERD, chronic cough, fibromyalgia, history of recurrent pneumonia, history of EVELINA that resolved after bariatric surgery, history of
dysphagia, osteoporosis, and history of heart attack who presents with sharp pain in her chest with cough since yesterday afternoon. Also short of breath. Prior admissions patient diagnosed with recurrent pneumonia thought to be due to aspiration
but prior VSE studies completed in December 2022, March 2024 and June 2024 all recommended regular solids/thin liquids with no aspiration noted on any study. Patient was in her usual state of health until 1 day prior to arrival when she started
having a cough with chest pain. Cough was dry and she denied having coughing while eating food or drinking water. Initially in the ER she was febrile to 102.8 �F, pulse rate 96, breathing at 18 breaths/minute, BP 169/86 and saturating 93% on room
air. Initial labs showed normal WBC at 5.8, Hb 11.5, serum sodium 134, troponin negative at 0.015, procalcitonin negative at 0.06, and COVID-19 antigen negative. Flu A/B swab is negative and blood cultures were collected. CXR shows concern for
left lower lobe pneumonia which is stable compared to prior CXR on 10/22/2024. In the ER she was given IVF with 500cc NS 0.9%, DuoNebs, 500 cc bolus of NS 0.9% and 1 g of acetaminophen. She was later give 80 mg IV Lasix. She was admitted to
telemetry and continued on IV Lasix and antibiotics. Pulmonary service now consulted for additional management/recommendations.
Impression:
#Acute respiratory failure with hypoxia on supplemental oxygen
#Hypochloremic, hyponatremia
#Hypokalemia
#History of left lower lobe pneumonia with history of recurrent pneumonia
#Hyperglycemia - improved
#Hypomagnesemia
#History of postnasal drip
#Chronic anemia (baseline Hb 9.5�11g/dL)
#Chronic cough
#Severe persistent asthma on Symbicort + Spiriva, Zithromax TIW + prednisone 10 mg daily
#Hypothyroidism
Conditions present prior to admission:
Hospitalization 07/2024-recurrent pneumonia left upper lobe
Hospitalization March 2024-right lower lobe pneumonia-aspiration suspected
Hospitalization 06/2024-right lower lobe pneumonia.
Hospitalization 08/29/24-chest pain and pneumonia
Asthma-followed by Dr. Szymanski-maintained on Symbicort and Xopenex as well as Aurea, Astelin and Flonase
Pulmonary nodule-7-8 mm stable
Recurrent pneumonia-aspiration suspected..
Esophageal dysmotility
IgG3 deficiency
EVELINA resolved with weight loss.
Obesity/bariatric surgery.
Hypertension.
Hyperlipidemia.
Diabetes.
Hypothyroid.
History CVA.
Anxiety/depression/schizoaffective disorder.
Cognitive dysfunction.
GERD.
Vertigo.
Diverticulosis.
Cholecystectomy. Right knee repair. Tonsillectomy. Carpal tunnel 2020 11/2022. Cataract. Glaucoma. Hysterectomy.
Plan:
She is currently stable on RA
Patient has chronic opacification in the left retrocardiac/left lower lobe region at least since June 2024
I feel that this left lower lobe opacification is chronic and considering that she has absent leukocytosis with negative procalcitonin, I am not fully convinced she has a new bacterial pneumonia that needs to be treated
VSE 11/06/24- Mild pharyngeal dysphagia characterized trace laryngeal penetration of thin and mildly thick liquids by consecutive sips due in part to delayed swallow onset. No aspiration identified but risk elevated. Distal retention noted during
lateral sweep of esophagus suggesting contents slow to empty.
Asp PNA likely
Can de-escalate abx therapy or stop and observe off
BNP low at 112; last echo on 10/27/2024 showed preserved biventricular function with normal RV size, normal LV thickness, normal diastolic function and only mildly elevated PASP 35-40 mmHg (no change compared to prior echo from November 2021)
s/p diuresis (last dose 11/05) and now on hold; keep K is >3.5 and Mg>1.8
She does carry a history of ILD, can review further OP testing
Eval with repeat PFT/CT imaging, she has many CTs in past
Pain control
Antitussants as needed
If mucous develops then start mucinex and give acapella
Maintain SpO2 >90-94% with supplemental O2 and wean down as tolerated
She takes Symbicort and spiriva as an outpatient with zithromycin and chronic prednisone 10mg daily --> resume all this while hospitalized
Trend QTc (459ms currently)
prn nebulized bronchodilators - not currently bronchospastic
Continue xopenex TID; DC atrovent given she is already on spiriva
- Incentive spirometer encouraged q1hr while awake
- Replete electrolytes with K>4, Mg>2
- Maintain euglycemia with goal BG >100 and <180
- DVT ppx: LMWH
Pulmonary service will continue to follow along.
Once discharged we will ensure patient has follow-up with our office with Dr. Szymanski, as last visit was with JUDITH Hawkins on 10/19/2024.
Eval for PT/rehab per team
Data:
CXR 05/16/2023: Right upper lobe pneumonia appears unchanged. Linear foci in the left lower lobe may be subsegmental atelectasis.����
CXR 10/29/22: New areas of linear interstitial airspace disease in the right middle lobe and basilar portion of the left lower lobe suggesting interstitial pneumonia/bronchiolitis
Chest x-ray 03/02/2024-��NAD
Chest x-ray 03/22/20240796-pdtqs-cholw pneumonia, no large parapneumonic effusion is appreciated
Chest x-ray 07/07/2024-left lower lobe pneumonia
Chest x-ray 07/23/2024-persistent patchy opacification in the left lung with some improvement compared to 07/10/2024, mildly elevated right hemidiaphragm
Chest x-ray 08/28/24-moderate amount of asymmetrical opacification left upper lobe and lower lobes consistent with pneumonia increased since 07/23/24, .
Chest x-ray 10/22/24-left basilar pneumonia
CXR 11/03/24-Stable moderate left lower lobe pneumonia
CT chest, abdomen and pelvis 10/22/24-multifocal pneumonia in both lungs, left greater than right, mild enterocolitis
CT chest 04/24/2024-resolution of right pneumonia, low lung volumes with scattered bilateral subsegmental atelectasis, stable 7 mm solid pulmonary nodule,moderate elevation of right hemidiaphragm
CT chest 08/28/24. -severe airspace consolidation left upper lobe and lower lobe increased, but slightly different distribution than 07/25/24, mild to moderate left hilar and left sided mediastinal lymphadenopathy.
CT scan08/09/2023: Reviewed,Jermaine Stanley 08/24/2023 08:54:12 AM >��1. Stable left lisa-fissural nodule, likely benign.2.� Interval resolution of previously seen left upper lobe groundglass densities.�������
CT chest 04/12/2023: Previous opacity/pneumonia in the right lower lobe has resolved. Mild scarring versus atelectasis in the mid to lower lung zones. A perifissural nodule in the left mid to lower lung zone has remained stable. Multiple subtle
groundglass nodular opacities have developed in the left upper lobe measuring up to 8.4 mm.��������-
CT chest 01/10/2023: showed no evidence for acute pulmonary embolism.Right lower lobe airspace disease, likely pneumonia, new compared to November 2022. Mild bilateral groundglass opacities.Stable left lower lobe pulmonary nodule.��������������
CT chest 2022:Reviewed, showed 8 mm pleural-based pulmonary nodule slightly increased compared to prior examinations.����������������-��������
CT chest 05/08/2022: Solid pleural-based 8 mm left lower lobe pulmonary nodule. Appearance of slight increase in size. However this can be due to the location and the slice image. Moderate right upper lobe and right lower lobe atelectasis versus
scarring. Mild lingular and right middle lobe atelectasis versus scarring. Gallbladder has been removed.
CT sinus 03/14/2024-unremarkable CT of the sinuses
VSE 01/12/2023: Upper laryngeal penetration. No aspiration.������
Lower extremity ultrasound 03/22/2024-no evidence for DVT
PFT 08/24/2023-FEV1 2.16-86%, FVC 2.78-84%, TLC 76%, RV 55%, DLCO 72%, DLCO/VA 89%
-----
Total time spent today was 45 minutes for this encounter. Time includes reviewing laboratory test/imaging results, reviewing pertinent medical records, obtaining and reviewing medical history, performing an appropriate exam, ordering medications,
tests and procedures. Time also includes documentation of this encounter, coordinating patient care and communicating with other healthcare professionals. Total time does not include separately billed tests performed on this date of service.
Subjective Data
-
Date of Service:
Date of Service: November 06, 2024
Chief Complaint: Pulmonary Follow Up
Subjective:
Remains stable on RA, SOB with exertion
Otherwise no other complaints
Objective Data
Data Reviewed
Vital Signs / I&O / Oxygen:
Vital Signs
Temp Pulse Resp BP Pulse Ox
97.8 F 69 16 130/86 92
11/06/24 11:30 11/06/24 11:30 11/06/24 11:30 11/06/24 12:51 11/06/24 11:30
Intake and Output
11/05/24 11/06/24 11/07/24
06:59 06:59 06:59
Intake Total 120 / 120 1920 / 1920
Output Total 850 / 850
Balance -730 / -730 1919
SaO2 92
Nasal Cannula flow liters per 2
minute
Physical Exam
General: Respiratory Distress (negative), Comfortable, Chills (negative) and Sweats (negative)
HEENT: Normocephalic, Anicteric and Other (edentulous)
Cardiovascular: S1-S2, Regular Rhythm, Murmur (negative), Rub (negative) and Peripheral Edema (trace LE edema b/l)
Respiratory: Clear, Wheeze (negative), Rhonchi (negative), Non-Labored Respirations and Stridor (negative)
GI: Soft, Non Distended, Non Tender and Normal Bowel Sounds
Neurology: AO x 3 and Tremors (negative)
Skin: Warm, Dry, Cyanosis (negative) and Jaundice (negative)
Labs/Micro/Reports
Lab Data
11/06/24 08:27
11/06/24 08:27
Microbiology
11/03/24 16:18 Blood/Venous Blood Culture - Preliminary
No Growth in 48 hours- Final report to follow
11/03/24 16:18 Blood/Venous Blood Culture - Preliminary
No Growth in 48 hours- Final report to follow
11/05/24 03:22 Urine Legionella Urinary Antigen - Final
Negative for Legionella pneumophila Serogroup 1 antigen.
A negative result does not rule out the possiblity of
Legionella infection due to other serogroups or species of
Legionella. Clinical correlation is recommended.
11/05/24 03:22 Urine Streptococcus pneumoniae Antigen (M - Final
Negative for Streptococcus pneumoniae antigen.
A negative result does not exclude infection with
Streptococcus pneumoniae. Clinical correlation is
recommended.
11/04/24 15:12 Nasalpharynx Respiratory Syncytial Virus Ag - Final
Negative for Respiratory Syncytial Virus.
A false negative result may be obtained with a specimen
collected early in the acute phase. If symptoms persist, a
new specimen should be tested.
11/03/24 15:26 Nasal Swab Influenza Types A & B (DEL) - Final
Negative for Influenza A & B, NAAT
Negative results must be combined with clinical observations
and patient history.
Nucleic Acid Amplification test (NAAT)performed on the
[employer] platform.
--- NOTE | 2024-11-06 12:59 | PTOTSP ---
Video Swallow Examination
Mild pharyngeal dysphagia characterized trace laryngeal penetration of thin and mildly thick liquids by consecutive sips due in part to delayed swallow onset. No aspiration identified but risk elevated. Distal retention noted during lateral sweep of
esophagus suggesting contents slow to empty.
Recommend
1. Continue current diet of regular solids and thin liquids.
2. Single sips
3. Meds with liquid or as best tolerated.
4. Alternate sip of liquid after every 2-3 bites of solid.
5. Remain upright for at least 30 minutes after meals.
ST will follow up to ensure use of strategies.
[2024-11-06 14:01] LABS: Rheumatoid Agglutinin Less Than 10 IU (<10 IU)
--- NOTE | 2024-11-06 14:25 | CM ---
Patient seen bedside.
PT/OT recommending home with home care.
patient agreeable to VN, choices reviewed- chose [facility].
Referral to [facility] nurse liaison.
IMM completed.
Plan: home with [facility].
--- NOTE | 2024-11-06 15:52 | VNURNOTE ---
[facility] Liaison attempted to meet patient at bedside. She was sound asleep. [facility] brochure left on bedside table. Will follow up later. Referral placed in [facility].
[2024-11-06] MEDS: LOVENOX 40 MG SC (17:41)
[2024-11-06] MEDS: KCL 20 MEQ PO (20:44)
[2024-11-06] MEDS: REMERON 45 MG PO (22:13)
[2024-11-06] MEDS: ARICEPT 10 MG PO (22:13)
[2024-11-06] MEDS: FLEXERIL 10 MG PO (22:13)
[2024-11-06] MEDS: PEPCID 40 MG PO (22:14)
[2024-11-06 23:45] LABS: Aldolase 5.3 U/L (1.2-7.6)
[2024-11-07 01:03] LABS: Centromere Antibody 1 AU/mL (0-40); Jo-1 Antibodies 2 AU/mL (0-40); SSA 52 (Ro)(ENA) Ab, IgG 6 AU/mL (0-40); SSA 60 (Ro)(ENA) Ab, IgG 0 AU/mL (0-40); SSB (La)(ENA) Ab, IgG 9 AU/mL (0-40); Scleroderma Antibody (Scl-70) 1 AU/mL (0-40)
[2024-11-07] MEDS: TESSALON PERLES 200 MG PO ×3 (02:35→21:12)
[2024-11-07] MEDS: NORCO 5/325 1 TABLET PO ×3 (02:35→21:12)
[2024-11-07] MEDS: UNASYN IV ×4 (02:36→21:11)
[2024-11-07 06:00] VITALS: BMI 29.5
[2024-11-07] MEDS: SYNTHROID 50 MCG PO (06:39)
[2024-11-07 07:39] VITALS: BP 122/55
[2024-11-07 07:52] LABS: Blood Urea Nitrogen 9 mg/dl (7-17); Calcium 8.6 mg/dl (8.4-10.2); Carbon Dioxide 31 mmol/L (22-30); Chloride 95 mmol/L (98-107); Estimated Creatinine Clearance 88 ml/min; Glucose 86 mg/dl (70-99); Potassium 3.2 mmol/L (3.5-5.1); Sodium 136 mmol/L (135-145); eGFR > 60.00
[2024-11-07 07:54] LABS: % Basophils 0.4 % (0-2); % Immature Granulocytes 0.4 % (0-0.5); % Lymphocytes 37.7 % (20.5-51.1); % Monocytes 11.7 % (1.7-9.3); % Neutrophils 49.8 % (42.2-75.2); Absolute Lymphocytes 0.9 10^3/uL (1.2-3.4); Absolute Monocytes 0.3 10^3/uL (0.1-0.6); Absolute Neutrophils 1.2 10^3/uL (1.4-6.5); Hemoglobin 11.4 g/dL (12.0-16.0); Mean Corp Hgb Conc. 32.6 g/dL (33.0-37.0); Mean Platelet Volume 8.8 fL (7.4-10.4); Nucleated Red Blood Cells % 0 %; Platelet Count 220 10^3/uL (130-400); Red Blood Cell Count 4.07 10^6/uL (4.20-5.40); Red Cell Dist. Width 13.5 % (11.5-14.5); White Blood Cell Count 2.4 10^3/uL (4.8-10.8)
[2024-11-07] MEDS: SYMBICORT 160/4.5 MCG INHALER 2 PUFF INH ×2 (08:18→19:41)
[2024-11-07] MEDS: COGENTIN 2 MG PO (08:18)
[2024-11-07] MEDS: XOPENEX 0.63 MG INHALANT SOLUTION INH ×3 (08:18→19:40)
[2024-11-07] MEDS: PROTONIX 40 MG PO ×2 (08:19→20:53)
[2024-11-07] MEDS: ZANAFLEX 2 MG PO ×2 (08:19→20:52)
[2024-11-07] MEDS: SPIRIVA RESPIMAT 2.5 MCG 2 PUFF INH (08:19)
[2024-11-07] MEDS: PLAVIX 75 MG PO (08:19)
[2024-11-07] MEDS: DIOVAN 20 MG PO (08:19)
[2024-11-07] MEDS: ANTIVERT 25 MG PO ×3 (08:19→20:55)
[2024-11-07] MEDS: LIPITOR 80 MG PO (08:19)
[2024-11-07] MEDS: DELTASONE 10 MG PO (08:19)
[2024-11-07] MEDS: NAMENDA 10 MG PO ×2 (08:19→20:53)
[2024-11-07] MEDS: XANAX 0.5 MG PO ×4 (08:20→20:59)
[2024-11-07] MEDS: KCL 20 MEQ PO ×2 (08:20→20:53)
[2024-11-07] MEDS: LASIX 80 MG PO (09:43)
[2024-11-07 10:11] VITALS: BP 99/59; PULSE 73; O2SAT 92
[2024-11-07 10:54] LABS: CCP Antibody IgG/IgA 4 Units (0-19)
[2024-11-07 11:14] LABS: ANA, IgG Reflex to HEp-2 Detected (None Detected)
--- NOTE | 2024-11-07 11:39 | PN.CDI ---
CDI
- -
CDI:
Physician Documentation Request
Admit Date: 11/03/24 19:21
Dear Doctor Arpan,
Patient admitted for recurrent pneumonia.
11/06 Hospitalist PN: 'Recurrent pneumonia
Hx Esophageal Dysmotility and concern for recurrent aspiration events
-unclear if patient with new pneumonia versus pneumonitis. Procal negative. However given recurrent infections and patient's frailty will continue IV antibiotics'
Selected Entries
11/03/24
15:03 11/03/24
19:13 11/04/24
03:00
Temp 102.8 F H 100.4 F H 102.8 F H
11/03/24
15:03 11/03/24
17:00 11/03/24
17:45
Pulse 96 96 97
11/03/24
16:15 11/03/24
16:45 11/03/24
17:45
Resp Rate 32 32 32
Please clarify which of the following most accurately describes the status of the patient's infection:
Sepsis, POA
- Systemic manifestations of infection, with 2 or more SIRS criteria which include:
- Fever >100.4 degrees F or hypothermia < 96.8 degrees F
- Leukocytosis - WBC > 12,000 or leukopenia - WBC < 4,000 or > 10% bands
- Tachycardia > 90 beats per minute
- Tachypnea - RR > 20 breaths per minute or PaCO2 , 32mmHg
Source: Merck Manual 2013
- Indicate the known or suspected organism
- Indicate the known or suspected underlying infection, such as UTI, pneumonia or cellulitis
- Indicate if a suspected bacterial infection of unknown source
- Indicate if associated with an implanted device such as a F/C, PICC line, orthopedic hardware, etc.
Severe Sepsis
- Sepsis with associated acute organ dysfunction, such as renal or respiratory failure
- Documentation should indicate the association between the sepsis and the organ dysfunction
Localized Infection Only, Without Systemic Illness
- indicate the site/source, such as UTI, pneumonia etc.
Other
Use of terms such as suspected, likely, concern for, or probable (associated with a specific diagnosis that is being evaluated, monitored, or treated as if it exists) are acceptable and can be coded in the inpatient setting, when documented at the
time of discharge.
Thank you,
Jyoti Neves RN, BSN
CDI Specialist
Available via [facility] text
Please use your independent medical judgment in providing your response.
--- NOTE | 2024-11-07 11:45 | W.PN.HOSP.TC ---
Today's Communication/Plan
-
IV abx
steroids per pulm
OOB
Start dispo
Assessment / Plan
Assessment / Plan
General: No Apparent Distress and Other (appears fatigued)
HEENT: neck is supple,
Respiratory: mild rhonchi,
Cardiac: S1/S2, Regular Rhythm
GI: Soft and Non Tender
MSK-LE with edema
Skin: Warm and Dry; No Rash
Neuro: AO x 3
Psych: Calm
Ms. Avis Leslie is a 69 yo woman with hx CVA with cognitive impairment, essential HTN, DM, Bipolar disorder, chronic pain, anxiety/depression/schizoaffective disorder, recurrent hospitalizations for pneumonia (07/11, 09/10, 11/11) represents to
the ER with cough and chest pain. She was found to be hypoxic to 80's on arrival requiring 4L O2.
CXR
IMPRESSION:
Stable moderate left lower lobe pneumonia
Weakness likley 2/2 sepsis/deconditioning
Sepsis likely 2/2 recurrent aspiration pna-poa
Hx Esophageal Dysmotility and concern for recurrent aspiration events
-unclear if patient with new pneumonia versus pneumonitis. Procal negative. However given recurrent infections and patient's frailty will continue IV antibiotics day 4/5
-covid and flu negative
-Pulmonary consult
-reconsult ST
-Covid Negative and Influenza Negative
-VSE ordered. per speech okay for regular diet
-FILLER AND TRIMMER prednisone 10mg PO QD.
-standing levalbuterol and levalbuterol PRN. Spirvia and symbicort.
-auto-immune work up started per pulm. Seems Chronic left lung infiltration.
-Barium Esophagram appreciated esophageal dysmotility, likely source of recurrent pneumonias
-fever curve improved
-HEATHER positive. Rheum factor, CCP, Anti JANET, SS-A/B, SCL 70, Anti-centromere -neg
Acute Hypoxic Respiratory Insufficiency
Mild acute on chronic HFpEF
Hypokalemia/hypomag-replete/monitor
-EF 60-65% on TTE 11/11, mild TR
-patient is on Lasix 80mg TuSa and 40mg other days
-she has elevated JVP on exam and rales
-Probnp noted. Stop IV lasix and restart home po lasix 80/40mg regimen. KCL.
Leukopenia likely 2/2 steroids vs. sepsis
-trend wbc for now.
-
Mild hyponatremia
-monitor for now
esophageal dysmotility, likely source of recurrent pneumonias
speech eval, cont PPI BID, outpt esophageal manometry testing
Vse completed.
Essential Hypertension
-Continue valsartan with holding parameters
Hyperlipidemia
-Continue atorvastatin
Asthma, no acute exacerbation
-Continue Symbicort and Spiriva
Hypothyroidism
-Continue levothyroxine
Bipolar Disorder / Schizoaffective Disorder
-Continue alprazolam, mirtazapine
Dementia
-Continue Aricept and Namenda
Chronic Pain Syndrome with Opioid Dependence secondary to Fibromyalgia and Ankylosing Spondylitis
-Continue hydrocodone/acetaminophen
-Continue cyclobenzaprine, tizanidine and lidocaine cream/patch
Arthirtis
GERD
-Continue Pepcid and Protonix
Chronic Lower Extremity Lymphedema
-home Lasix resumed
Hypokalemia
-replete /monitor
Obesity s/p Bariatric Surgery
DVT Proph: Lovenox
Code Status: DNR/DNI
PT/OT-Home VN.
Anticipated Discharge: Within 24 hours
Subjective/Interval History
-
Date of Service: November 07, 2024
States feeling extremely weak
felt sob with exertion after working PT
Objective Data
-
Labs:
Laboratory Results
11/07/24
07:06
WBC 2.4 L*
Hgb 11.4 L
Hct 35.0 L
Plt Count 220
Sodium 136
Potassium 3.2 L
Chloride 95 L
Carbon Dioxide 31 H
BUN 9
Creatinine 0.7
Glucose 86
Calcium 8.6
Vital Signs:
Vital Signs
Temp Pulse Resp BP Pulse Ox
98.1 F 76 18 99/59 94
11/07/24 07:39 11/07/24 09:43 11/07/24 08:19 11/07/24 09:43 11/07/24 08:19
I&O
11/06/24 11/07/24 11/08/24
06:59 06:59 06:59
Intake Total 2160 / 2160 240 / 240 120 / 120
Balance 2160 / 2160 240 / 240 120 / 120
[2024-11-07] MEDS: COGENTIN 1 MG PO ×2 (12:21→20:58)
--- NOTE | 2024-11-07 13:19 | W.PN.PUL3 ---
Today's Communication / Plan
-
No new complaints, remains stable on RA
Stop date for abx added for 11/08 (total 5 days)
On baseline prednisone dose (10mg daily)
Discharge planning per team
We will sign off at this time, please call with questions
Assessment
-
69-year-old female with a past medical history of severe persistent asthma, history of multiple lung nodules, GERD, chronic cough, fibromyalgia, history of recurrent pneumonia, history of EVELINA that resolved after bariatric surgery, history of
dysphagia, osteoporosis, and history of heart attack who presents with sharp pain in her chest with cough since yesterday afternoon. Also short of breath. Prior admissions patient diagnosed with recurrent pneumonia thought to be due to aspiration
but prior VSE studies completed in December 2022, March 2024 and June 2024 all recommended regular solids/thin liquids with no aspiration noted on any study. Patient was in her usual state of health until 1 day prior to arrival when she started
having a cough with chest pain. Cough was dry and she denied having coughing while eating food or drinking water. Initially in the ER she was febrile to 102.8 �F, pulse rate 96, breathing at 18 breaths/minute, BP 169/86 and saturating 93% on room
air. Initial labs showed normal WBC at 5.8, Hb 11.5, serum sodium 134, troponin negative at 0.015, procalcitonin negative at 0.06, and COVID-19 antigen negative. Flu A/B swab is negative and blood cultures were collected. CXR shows concern for
left lower lobe pneumonia which is stable compared to prior CXR on 10/22/2024. In the ER she was given IVF with 500cc NS 0.9%, DuoNebs, 500 cc bolus of NS 0.9% and 1 g of acetaminophen. She was later give 80 mg IV Lasix. She was admitted to
telemetry and continued on IV Lasix and antibiotics. Pulmonary service now consulted for additional management/recommendations.
Impression:
#Acute respiratory failure with hypoxia on supplemental oxygen
#Hypochloremic, hyponatremia
#Hypokalemia
#History of left lower lobe pneumonia with history of recurrent pneumonia
#Hyperglycemia - improved
#Hypomagnesemia
#History of postnasal drip
#Chronic anemia (baseline Hb 9.5�11g/dL)
#Chronic cough
#Severe persistent asthma on Symbicort + Spiriva, Zithromax TIW + prednisone 10 mg daily
#Hypothyroidism
Conditions present prior to admission:
Hospitalization 07/2024-recurrent pneumonia left upper lobe
Hospitalization March 2024-right lower lobe pneumonia-aspiration suspected
Hospitalization 06/2024-right lower lobe pneumonia.
Hospitalization 08/29/24-chest pain and pneumonia
Asthma-followed by Dr. Szymanski-maintained on Symbicort and Xopenex as well as Aurea, Astelin and Flonase
Pulmonary nodule-7-8 mm stable
Recurrent pneumonia-aspiration suspected..
Esophageal dysmotility
IgG3 deficiency
EVELINA resolved with weight loss.
Obesity/bariatric surgery.
Hypertension.
Hyperlipidemia.
Diabetes.
Hypothyroid.
History CVA.
Anxiety/depression/schizoaffective disorder.
Cognitive dysfunction.
GERD.
Vertigo.
Diverticulosis.
Cholecystectomy. Right knee repair. Tonsillectomy. Carpal tunnel 2020 11/2022. Cataract. Glaucoma. Hysterectomy.
Plan:
She is currently stable on RA
Patient has chronic opacification in the left retrocardiac/left lower lobe region at least since June 2024
I feel that this left lower lobe opacification is chronic and considering that she has absent leukocytosis with negative procalcitonin, I am not fully convinced she has a new bacterial pneumonia that needs to be treated
VSE 11/06/24- Mild pharyngeal dysphagia characterized trace laryngeal penetration of thin and mildly thick liquids by consecutive sips due in part to delayed swallow onset. No aspiration identified but risk elevated. Distal retention noted during
lateral sweep of esophagus suggesting contents slow to empty.
Asp PNA likely
Can de-escalate abx therapy or stop and observe off
BNP low at 112; last echo on 10/27/2024 showed preserved biventricular function with normal RV size, normal LV thickness, normal diastolic function and only mildly elevated PASP 35-40 mmHg (no change compared to prior echo from November 2021)
s/p diuresis (last dose 11/05) and now on hold; keep K is >3.5 and Mg>1.8
She does carry a history of ILD, can review further OP testing
Eval with repeat PFT/CT imaging, she has many CTs in past
Pain control
Antitussants as needed
If mucous develops then start mucinex and give acapella
Maintain SpO2 >90-94% with supplemental O2 and wean down as tolerated
She takes Symbicort and spiriva as an outpatient with zithromycin and chronic prednisone 10mg daily --> resume all this while hospitalized
Trend QTc (459ms currently)
prn nebulized bronchodilators - not currently bronchospastic
Continue xopenex TID; DC atrovent given she is already on spiriva
- Incentive spirometer encouraged q1hr while awake
- Replete electrolytes with K>4, Mg>2
- Maintain euglycemia with goal BG >100 and <180
- DVT ppx: LMWH
Pulmonary service will continue to follow along.
Once discharged we will ensure patient has follow-up with our office with Dr. Szymanski, as last visit was with JUDITH Hawkins on 10/19/2024.
Eval for PT/rehab per team
Data:
CXR 05/16/2023: Right upper lobe pneumonia appears unchanged. Linear foci in the left lower lobe may be subsegmental atelectasis.����
CXR 10/29/22: New areas of linear interstitial airspace disease in the right middle lobe and basilar portion of the left lower lobe suggesting interstitial pneumonia/bronchiolitis
Chest x-ray 03/02/2024-��NAD
Chest x-ray 03/22/20249811-wgcgg-euenu pneumonia, no large parapneumonic effusion is appreciated
Chest x-ray 07/07/2024-left lower lobe pneumonia
Chest x-ray 07/23/2024-persistent patchy opacification in the left lung with some improvement compared to 07/10/2024, mildly elevated right hemidiaphragm
Chest x-ray 08/28/24-moderate amount of asymmetrical opacification left upper lobe and lower lobes consistent with pneumonia increased since 07/23/24, .
Chest x-ray 10/22/24-left basilar pneumonia
CXR 11/03/24-Stable moderate left lower lobe pneumonia
CT chest, abdomen and pelvis 10/22/24-multifocal pneumonia in both lungs, left greater than right, mild enterocolitis
CT chest 04/24/2024-resolution of right pneumonia, low lung volumes with scattered bilateral subsegmental atelectasis, stable 7 mm solid pulmonary nodule,moderate elevation of right hemidiaphragm
CT chest 08/28/24. -severe airspace consolidation left upper lobe and lower lobe increased, but slightly different distribution than 07/25/24, mild to moderate left hilar and left sided mediastinal lymphadenopathy.
CT scan08/09/2023: Reviewed,Jermaine Stanley 08/24/2023 08:54:12 AM >��1. Stable left lisa-fissural nodule, likely benign.2.� Interval resolution of previously seen left upper lobe groundglass densities.�������
CT chest 04/12/2023: Previous opacity/pneumonia in the right lower lobe has resolved. Mild scarring versus atelectasis in the mid to lower lung zones. A perifissural nodule in the left mid to lower lung zone has remained stable. Multiple subtle
groundglass nodular opacities have developed in the left upper lobe measuring up to 8.4 mm.��������-
CT chest 01/10/2023: showed no evidence for acute pulmonary embolism.Right lower lobe airspace disease, likely pneumonia, new compared to November 2022. Mild bilateral groundglass opacities.Stable left lower lobe pulmonary nodule.��������������
CT chest 2022:Reviewed, showed 8 mm pleural-based pulmonary nodule slightly increased compared to prior examinations.����������������-��������
CT chest 05/08/2022: Solid pleural-based 8 mm left lower lobe pulmonary nodule. Appearance of slight increase in size. However this can be due to the location and the slice image. Moderate right upper lobe and right lower lobe atelectasis versus
scarring. Mild lingular and right middle lobe atelectasis versus scarring. Gallbladder has been removed.
CT sinus 03/14/2024-unremarkable CT of the sinuses
VSE 01/12/2023: Upper laryngeal penetration. No aspiration.������
Lower extremity ultrasound 03/22/2024-no evidence for DVT
PFT 08/24/2023-FEV1 2.16-86%, FVC 2.78-84%, TLC 76%, RV 55%, DLCO 72%, DLCO/VA 89%
-----
Total time spent today was 45 minutes for this encounter. Time includes reviewing laboratory test/imaging results, reviewing pertinent medical records, obtaining and reviewing medical history, performing an appropriate exam, ordering medications,
tests and procedures. Time also includes documentation of this encounter, coordinating patient care and communicating with other healthcare professionals. Total time does not include separately billed tests performed on this date of service.
Subjective Data
-
Date of Service:
Date of Service: November 07, 2024
Chief Complaint: Pulmonary Follow Up
Subjective:
No new complaints, stable on RA
Objective Data
Data Reviewed
Vital Signs / I&O / Oxygen:
Vital Signs
Temp Pulse Resp BP Pulse Ox
98.1 F 76 18 99/59 94
11/07/24 07:39 11/07/24 09:43 11/07/24 08:19 11/07/24 09:43 11/07/24 08:19
Intake and Output
11/06/24 11/07/24 11/08/24
06:59 06:59 06:59
Intake Total 2160 / 2160 240 / 240 120 / 120
Balance 2160 / 2160 240 / 240 120 / 120
SaO2 94
Nasal Cannula flow liters per 2
minute
Physical Exam
General: Respiratory Distress (negative), Comfortable, Chills (negative) and Sweats (negative)
HEENT: Normocephalic, Anicteric and Other (edentulous)
Cardiovascular: S1-S2, Regular Rhythm, Murmur (negative), Rub (negative) and Peripheral Edema (trace LE edema b/l)
Respiratory: Clear, Wheeze (negative), Rhonchi (negative), Non-Labored Respirations and Stridor (negative)
GI: Soft, Non Distended, Non Tender and Normal Bowel Sounds
Neurology: AO x 3 and Tremors (negative)
Skin: Warm, Dry, Cyanosis (negative) and Jaundice (negative)
Labs/Micro/Reports
Lab Data
11/07/24 07:06
11/07/24 07:06
Microbiology
11/03/24 16:18 Blood/Venous Blood Culture - Preliminary
No Growth in 72 hours- Final report to follow
11/03/24 16:18 Blood/Venous Blood Culture - Preliminary
No Growth in 72 hours- Final report to follow
11/05/24 03:22 Urine Legionella Urinary Antigen - Final
Negative for Legionella pneumophila Serogroup 1 antigen.
A negative result does not rule out the possiblity of
Legionella infection due to other serogroups or species of
Legionella. Clinical correlation is recommended.
11/05/24 03:22 Urine Streptococcus pneumoniae Antigen (M - Final
Negative for Streptococcus pneumoniae antigen.
A negative result does not exclude infection with
Streptococcus pneumoniae. Clinical correlation is
recommended.
11/04/24 15:12 Nasalpharynx Respiratory Syncytial Virus Ag - Final
Negative for Respiratory Syncytial Virus.
A false negative result may be obtained with a specimen
collected early in the acute phase. If symptoms persist, a
new specimen should be tested.
[2024-11-07 13:52] VITALS: BP 118/63
--- NOTE | 2024-11-07 15:22 | VNURNOTE ---
Second attempt to meet with patient. She was asleep. Call placed to contact [facility]. Discussed [facility] nurse/therapy, visits, schedule and homebound status. Brother is agreeable and understands that visits at home will be 2-3 x per week to assess and
teach medical management.
[facility] brochure was provided at bedside with contact information. Brother is aware that [facility] will contact them for start of care in 1-2 days after discharge from . [facility] confirms that there is a scale at home. [facility] referral accepted in [facility].
--- NOTE | 2024-11-07 16:26 | TRANSFER ---
pt being transfered to [facility]. Verbal report called to Abran Turner via phone. pt packing up belongings and being transported via wheelchair on RA by PCT within the next 5 mins.
[2024-11-07] MEDS: LOVENOX 40 MG SC (17:29)
[2024-11-07] MEDS: FLEXERIL 10 MG PO (20:54)
[2024-11-07] MEDS: PEPCID 40 MG PO (20:54)
[2024-11-07] MEDS: ARICEPT 10 MG PO (20:54)
[2024-11-07] MEDS: REMERON 45 MG PO (20:55)
[2024-11-07 23:26] VITALS: BP 121/57
[2024-11-08 02:02] LABS: ds-DNA Ab, IgG Reflex To Titer 5 IU (0-24)
--- NOTE | 2024-11-08 02:11 | DOWNTIME ---
There was a [employer] Downtime on 11/08/2024 from 0100 to 11/08/2023 at 0205 . Downtime documentation of patient's care, including medication administrations, has been reconciled in the electronic record per guidelines. Refer to the
patient's paper chart under the miscellaneous tab to see printed paper medication records and downtime forms.
[2024-11-08] MEDS: SYNTHROID 50 MCG PO (05:00)
[2024-11-08 05:12] VITALS: BMI 29.3
[2024-11-08] MEDS: XANAX 0.5 MG PO ×4 (07:18→21:07)
[2024-11-08] MEDS: ZANAFLEX 2 MG PO ×2 (07:18→21:08)
[2024-11-08] MEDS: PROTONIX 40 MG PO ×2 (07:18→21:07)
[2024-11-08] MEDS: ZITHROMAX 250 MG PO (07:18)
[2024-11-08] MEDS: DELTASONE 10 MG PO (07:19)
[2024-11-08] MEDS: DIOVAN 20 MG PO (07:19)
[2024-11-08] MEDS: COGENTIN 2 MG PO (07:21)
[2024-11-08] MEDS: LIPITOR 80 MG PO (07:21)
[2024-11-08] MEDS: KCL 20 MEQ PO ×2 (07:21→21:08)
[2024-11-08] MEDS: NAMENDA 10 MG PO ×2 (07:21→21:09)
[2024-11-08] MEDS: PLAVIX 75 MG PO (07:21)
[2024-11-08] MEDS: ANTIVERT 25 MG PO ×3 (07:21→21:09)
[2024-11-08 07:23] VITALS: BP 139/94
[2024-11-08] MEDS: TESSALON PERLES 200 MG PO ×3 (07:24→21:21)
[2024-11-08] MEDS: SYMBICORT 160/4.5 MCG INHALER 2 PUFF INH ×2 (08:11→19:50)
[2024-11-08] MEDS: XOPENEX 0.63 MG INHALANT SOLUTION INH ×3 (08:11→19:50)
[2024-11-08] MEDS: SPIRIVA RESPIMAT 2.5 MCG 2 PUFF INH (08:11)
[2024-11-08 08:18] LABS: Blood Urea Nitrogen 6 mg/dl (7-17); Calcium 8.4 mg/dl (8.4-10.2); Carbon Dioxide 31 mmol/L (22-30); Chloride 98 mmol/L (98-107); Estimated Creatinine Clearance 87 ml/min; Glucose 96 mg/dl (70-99); Potassium 2.9 mmol/L (3.5-5.1); Sodium 138 mmol/L (135-145); eGFR > 60.00
[2024-11-08 09:01] LABS: Hematocrit 33.1 % (37.0-47.0); Hemoglobin 10.9 g/dL (12.0-16.0); Mean Corp Hgb Conc. 32.9 g/dL (33.0-37.0); Mean Corpuscular Hgb 28.3 pg (27.0-31.0); Platelet Count 206 10^3/uL (130-400); Red Blood Cell Count 3.85 10^6/uL (4.20-5.40); Red Cell Dist. Width 13.5 % (11.5-14.5)
[2024-11-08] MEDS: DRISDOL (VITAMIN D2) 50000 UNITS PO (09:24)
[2024-11-08] MEDS: VITAMIN B-12 1000 MCG PO (09:24)
[2024-11-08] MEDS: LASIX 40 MG PO (09:24)
[2024-11-08 10:33] LABS: Magnesium 1.5 mg/dl (1.6-2.3)
[2024-11-08] MEDS: KCL 270 MEQ IV (10:41)
--- NOTE | 2024-11-08 11:14 | PN.CDI ---
CDI
- -
CDI:
Physician Documentation Request
Admit Date: 11/03/24 19:21
Dear Doctor Arpan,
Patient admitted for sepsis.
11/06 Pulmonary PN: 'Acute respiratory failure with hypoxia on supplemental oxygen'
11/07 Hospitalist PN: 'Acute Hypoxic Respiratory Insufficiency, Mild acute on chronic HFpEF'
Selected Entries
11/03/24
20:40 11/04/24
08:47 11/05/24
03:26
Nasal Cannula flow liters per minute 4 4 4
11/03/24
16:10 11/03/24
16:15 11/03/24
17:45
Resp Rate 28 32 32
Clarify which of the following accurately represents the patient's respiratory status:
Acute hypoxic respiratory failure
Acute hypoxic respiratory insufficiency
Other
Additional information for Respiratory Failure:
Recognized criteria for Respiratory Failure (Source: [facility] Hospitalist Aug 2013)
ABGs: (1 or more) Symptoms Please indicate type if known
1. p)2 <60 or RA SPO2 <91% on RA 1. Tachypnea, SOB, dyspnea Hypoxic
2. pCO2 50 and pH <7.35 2. Use of accessory muscles Hypercapnic
3. pO2 decrease of pCO2 increase by 3. Pallor or cyanosis Hypoxic and Hypercapnic
10 mmHg from baseline if known 4. Anxiety or restlessness Unable to determine
5. Unable to speak in full sentences
Supplemental O2 of > 40% (5LPM) Intubation is not required
Use of terms such as suspected, likely, concern for, or probable (associated with a specific diagnosis that is being evaluated, monitored, or treated as if it exists) are acceptable and can be coded in the inpatient setting, when documented at the
time of discharge.
Thank you,
Jyoti Neves RN, BSN
CDI Specialist
Available via [place] text
Please use your independent medical judgment in providing your response.
[2024-11-08 11:39] LABS: % Eosinophils 0.5 % (0-6); % Immature Granulocytes 0.5 % (0-0.5); % Lymphocytes 47.7 % (20.5-51.1); % Monocytes 13.6 % (1.7-9.3); % Neutrophils 37.7 % (42.2-75.2); Absolute Monocytes 0.3 10^3/uL (0.1-0.6); Absolute Neutrophils 0.8 10^3/uL (1.4-6.5); Nucleated Red Blood Cells % 0 %
--- NOTE | 2024-11-08 11:57 | PTCARENOTE ---
Pt with critical neutrophil count of 0.8. MD Bunn notified, awaiting private room for pt to be placed on neutropenic precautions.
[2024-11-08] MEDS: COGENTIN 1 MG PO ×2 (12:33→21:14)
[2024-11-08 15:00] VITALS: BP 127/72
--- NOTE | 2024-11-08 15:14 | W.PN.HOSP.TC ---
Today's Communication/Plan
-
CBC in am
Replace K and Mag
Recheck in am
Assessment / Plan
Assessment / Plan
69-year-old female with shortness of breath. Multiple family members at home had flulike illness
Patient was awake and alert
Cardiovascular system S1-S2 appreciated
Chest few scattered rales
Abdomen soft and nontender
# Sepsis likely secondary to recurrent aspiration pneumonia
History of esophageal dysmotility and concern for aspiration events
Antibiotics completed
COVID and influenza negative
Pulmonary consulted and following
Speech therapy /video swallow-okay for regular diet
Continue Spiriva/Symbicort and nebulizer treatments
Autoimmune workup started per pulmonary-chronic left lung infiltrate
Barium esophagram with esophageal dysmotility likely reason for recurrent pneumonia
HEATHER positive. Rheum factor, CCP, Anti JANET, SS-A/B, SCL 70, Anti-centromere -neg
Completed Unasyn
# Leukopenia-follow? Viral infection. Follow.
# Hypokalemia-replace. Continue daily dose.
# Hypomagnesemia-replace
# Generalized weakness deconditioning-likely secondary to above
# Acute hypoxic respiratory insufficiency
Mild acute on chronic HFpEF and also aspiration related
Echo--EF 60-65% on TTE 11/11, mild TR
patient is on Lasix 80mg TuSa and 40mg other days
# Esophageal dysmotility disorder-continue PPI-outpatient GI evaluation and esophageal manometry testing
# Asthma-continue Symbicort and Spiriva
# Anemia NOS
# Hypertension-continue valsartan
# Hyperlipidemia-continue atorvastatin
# Diet-controlled diabetes
# Hypothyroidism-continue levothyroxine
# Pulmonary nodule-follows up with pulmonary
# History of CVA-continue Plavix, statin
# Anxiety and depression-continue alprazolam, benztropine and mirtazapine
# Cognitive dysfunction
# Sleep apnea-not on CPAP reported resolved with weight loss
# Arthritis/fibromyalgia/rheumatoid arthritis/osteoarthritis/chronic pain-opiate dependent, Lyrica, cyclobenzaprine
Unclear if HLA-B27 positive
# GERD-continue PPI, famotidine
# Chronic lower extremity edema-on Lasix
# Chronic vertigo-on meclizine
# Dementia-continue Aricept and Namenda
# Obesity with history of bariatric surgery
# Diverticulosis
# DVT prophylaxis-Lovenox
# DNR
Discussed with nursing
Discussed with patient's brother listed as contact
Anticipated Discharge: Within 24 hours
Subjective/Interval History
-
Date of Service: November 08, 2024
Objective Data
-
Labs:
Laboratory Results
11/08/24
07:02
WBC 2.0 L*
Hgb 10.9 L
Hct 33.1 L
Plt Count 206
Sodium 138
Potassium 2.9 L
Chloride 98
Carbon Dioxide 31 H
BUN 6 L
Creatinine 0.7
Glucose 96
Calcium 8.4
Vital Signs:
Vital Signs
Temp Pulse Resp BP Pulse Ox
99.7 F 77 20 127/72 96
11/08/24 15:00 11/08/24 15:00 11/08/24 15:00 11/08/24 15:00 11/08/24 15:00
I&O
11/07/24 11/08/24 11/09/24
06:59 06:59 06:59
Intake Total 240 / 240 1200 / 1200
Balance 240 / 240 1200 / 1200
--- NOTE | 2024-11-08 15:54 | CM ---
talent solutions manager reviewed patient's chart and plan is to home with brother when stable and [facility].
Plan; Home with [facility].
[2024-11-08] MEDS: LOVENOX 40 MG SC (17:16)
[2024-11-08] MEDS: FLEXERIL 10 MG PO (21:07)
[2024-11-08] MEDS: PEPCID 40 MG PO (21:08)
[2024-11-08] MEDS: REMERON 45 MG PO (21:09)
[2024-11-08] MEDS: ARICEPT 10 MG PO (21:09)
[2024-11-08] MEDS: NORCO 5/325 1 TABLET PO (21:21)
[2024-11-08 23:19] VITALS: BP 118/66
[2024-11-08] MEDS: MAGNESIUM SULFATE 50 IV (23:30)
[2024-11-08 23:43] LABS: ANA, HEp-2, IgG <1:80 (<1:80)
[2024-11-09] MEDS: SYNTHROID 50 MCG PO (05:10)
[2024-11-09 06:00] VITALS: BMI 29.1
[2024-11-09] MEDS: SPIRIVA RESPIMAT 2.5 MCG 2 PUFF INH (07:35)
[2024-11-09] MEDS: SYMBICORT 160/4.5 MCG INHALER 2 PUFF INH (07:35)
[2024-11-09] MEDS: XOPENEX 0.63 MG INHALANT SOLUTION INH ×3 (07:35→19:16)
[2024-11-09 08:00] VITALS: BP 113/66
[2024-11-09 08:11] LABS: Hematocrit 31.5 % (37.0-47.0); Hemoglobin 10.4 g/dL (12.0-16.0); Mean Corpuscular Hgb 28.4 pg (27.0-31.0); Mean Corpuscular Volume 86.1 fL (81.0-99.0); Mean Platelet Volume 9.2 fL (7.4-10.4); Platelet Count 193 10^3/uL (130-400); Red Blood Cell Count 3.66 10^6/uL (4.20-5.40); Red Cell Dist. Width 13.4 % (11.5-14.5)
[2024-11-09 08:21] LABS: Blood Urea Nitrogen 6 mg/dl (7-17); Calcium 8.4 mg/dl (8.4-10.2); Carbon Dioxide 28 mmol/L (22-30); Chloride 102 mmol/L (98-107); Estimated Creatinine Clearance 87 ml/min; Glucose 99 mg/dl (70-99); Magnesium 2.2 mg/dl (1.6-2.3); Potassium 3.4 mmol/L (3.5-5.1); Sodium 138 mmol/L (135-145); eGFR > 60.00
[2024-11-09] MEDS: KCL 20 MEQ PO ×2 (09:04→09:05)
[2024-11-09] MEDS: XANAX 0.5 MG PO ×3 (09:05→16:54)
[2024-11-09] MEDS: COGENTIN 2 MG PO (09:05)
[2024-11-09] MEDS: PLAVIX 75 MG PO (09:06)
[2024-11-09] MEDS: ANTIVERT 25 MG PO ×2 (09:06→15:49)
[2024-11-09] MEDS: ZANAFLEX 2 MG PO (09:06)
[2024-11-09] MEDS: NAMENDA 10 MG PO (09:06)
[2024-11-09] MEDS: LIPITOR 80 MG PO (09:06)
[2024-11-09] MEDS: PROTONIX 40 MG PO (09:06)
[2024-11-09] MEDS: DIOVAN 20 MG PO (09:07)
[2024-11-09] MEDS: DELTASONE 10 MG PO (09:07)
--- NOTE | 2024-11-09 09:08 | W.PN.HOSP.TC ---
Addendum entered and electronically signed by Christa Bunn MD 11/09/24 15:45:
Dictation- [id number]
Original Note:
Today's Communication/Plan
-
Mag citrate for BM
Discharge later today after BM
Assessment / Plan
Assessment / Plan
69-year-old female with shortness of breath. Multiple family members at home had flulike illness
Patient was awake and alert
Cardiovascular system S1-S2 appreciated
Chest few scattered rales
Abdomen soft and nontender
Mild edema
# Sepsis likely secondary to recurrent aspiration pneumonia
History of esophageal dysmotility and concern for aspiration events
Antibiotics completed
COVID and influenza negative
Pulmonary consulted and following
Speech therapy /video swallow-okay for regular diet
Continue Spiriva/Symbicort and nebulizer treatments
Autoimmune workup started per pulmonary-chronic left lung infiltrate.
Barium esophagram with esophageal dysmotility likely reason for recurrent pneumonia
HEATHER positive. Rheum factor, CCP, Anti JANET, SS-A/B, SCL 70, Anti-centromere -neg.
Completed Unasyn.
# Leukopenia-follow? Viral infection. improved.
# Hypokalemia-replace extra. Continue daily dose.
# Hypomagnesemia-replaced
# Generalized weakness deconditioning-likely secondary to above
# Acute hypoxic respiratory insufficiency
Mild acute on chronic HFpEF and also aspiration related
Echo--EF 60-65% on TTE 11/11, mild TR
patient is on Lasix 80mg TuSa and 40mg other days
# Esophageal dysmotility disorder-continue PPI-outpatient GI evaluation and esophageal manometry testing discussed with the patient.
# Asthma-continue Symbicort and Spiriva
# Anemia NOS
# Hypertension-continue valsartan
# Hyperlipidemia-continue atorvastatin
# Diet-controlled diabetes
# Hypothyroidism-continue levothyroxine
# Pulmonary nodule-follows up with pulmonary
# History of CVA-continue Plavix, statin
# Anxiety and depression-continue Alprazolam, Benztropine and Mirtazapine
# Cognitive dysfunction
# Sleep apnea-not on CPAP reported resolved with weight loss
# Arthritis/fibromyalgia/rheumatoid arthritis/osteoarthritis/chronic pain-opiate dependent, Lyrica, cyclobenzaprine
Unclear if HLA-B27 positive
# GERD-continue PPI, Famotidine
# Chronic lower extremity edema-on Lasix
# Chronic vertigo-on Meclizine
# Dementia-continue Aricept and Namenda
# Obesity with history of Bariatric surgery
# Diverticulosis
# DVT prophylaxis-Lovenox
# DNR
Discussed with nursing
Discussed with patient's brother listed as contact 11/08/24
Anticipated Discharge: Today
Subjective/Interval History
-
Date of Service: November 09, 2024
Objective Data
-
Labs:
Laboratory Results
11/09/24
07:16
WBC 3.0 L
Hgb 10.4 L
Hct 31.5 L
Plt Count 193
Sodium 138
Potassium 3.4 L
Chloride 102
Carbon Dioxide 28
BUN 6 L
Creatinine 0.7
Glucose 99
Calcium 8.4
Vital Signs:
Vital Signs
Temp Pulse Resp BP Pulse Ox
97.8 F 75 16 113/66 92
11/09/24 08:00 11/09/24 08:00 11/09/24 08:00 11/09/24 08:00 11/09/24 08:00
I&O
11/08/24 11/09/24 11/10/24
06:59 06:59 06:59
Intake Total 1200 / 1200 1120 / 1120
Balance 1200 / 1200 1120 / 1120
[2024-11-09] MEDS: LASIX 40 MG PO (09:10)
[2024-11-09] MEDS: TESSALON PERLES 200 MG PO (09:20)
[2024-11-09 11:22] LABS: Atypical Lymphocytes 4 %; Band Neutrophils 1 % (0-3); Eosinophils 1 % (0-6); Lymphocytes 52 % (20-51); Monocytes 8 % (2-9); Myelocytes 2 % (-); Normal RBC Morphology Yes; Platelets Checked Yes; Segmented Neutrophils 32 % (42-75); Smudge Cells 1+; Total Cells Counted 100
[2024-11-09 11:24] LABS: Absolute Neutrophils -Man Diff 0.9 10^3/uL (1.4-6.5)
[2024-11-09] MEDS: COGENTIN 1 MG PO (12:20)
[2024-11-09] MEDS: SENOKOT 8.6 MG PO (12:20)
[2024-11-09] MEDS: CITROMA 300 ML PO (12:20)
[2024-11-09 15:23] VITALS: BP 138/79
--- NOTE | 2024-11-09 15:29 | W.DS.TRANS ---
DC Summary - [facility]
-
Discharge Instructions:
Discharge Diagnosis/Procedures Recurrent pneumonia
History of esophageal dysmotility with concern
for recurrent aspiration event
Acute hypoxic respiratory insufficiency
Mild acute on chronic HFpEF
Mild hyponatremia
Low potassium
Low magnesium
Asthma
Hypertension
High cholesterol
Hypothyroidism
History of CVA
Anxiety and depression
Chronic vertigo
Diverticulosis
Diet Restrict fluids to 48 oz,2 Gram Sodium
Activity With assistance
Driving Restrictions As prior to admission
Blood Work CBC and BMP in 1 week
Others Tests Chest x-ray 4 to 6 weeks
Other Services [facility]
Instructions:
Stand-Alone Forms:
Changes to Home Medications: Yes
Discharge Medications:
DC Medications w/original date entered in [facility]
famotidine 40 mg tablet 40 mg PO HS Gastrointestinal Issue 05/19/15
atorvastatin 80 mg tablet 80 mg PO DAILY High Cholesterol 01/10/23
benzonatate 200 mg capsule 200 mg PO TIDPRN PRN cough 01/10/23
clopidogrel 75 mg tablet 75 mg PO DAILY Blood Clot Prevention/Tx 01/10/23
donepezil 10 mg tablet 10 mg PO HS Mental Health/Anxiety 01/10/23
levalbuterol tartrate 45 mcg/actuation aerosol inhaler (Xopenex HFA) 2 inh inhalation R Q6HPRN PRN sob ##0 01/10/23
levothyroxine 50 mcg tablet 50 mcg PO DAILY Thyroid 01/10/23
mirtazapine 45 mg tablet 45 mg PO HS Mental Health/Anxiety 01/10/23
pantoprazole 40 mg tablet,delayed release (Protonix) 40 mg PO BID Gastrointestinal Issue 01/10/23
valsartan 40 mg tablet 20 mg PO DAILY Blood Pressure 01/10/23
cyanocobalamin (vitamin B-12) 1,000 mcg tablet 1,000 mcg PO Q48H Supplement 05/14/23
cyclobenzaprine 10 mg tablet 10 mg PO HS Muscle Spasms 05/14/23
ergocalciferol (vitamin D2) 1,250 mcg (50,000 unit) capsule 1,250 mcg PO WE Supplement 05/14/23
hydrocodone 10 mg-acetaminophen 325 mg tablet 1 tab PO QID pain 05/14/23
lidocaine-prilocaine 2.5 %-2.5 % topical cream 1 applic topical Q8HPRN PRN breakthrough mild pain 05/14/23
memantine 10 mg tablet 10 mg PO BID memory/cognition 05/14/23
ondansetron 4 mg disintegrating tablet 4 mg PO BIDPRN PRN nausea 05/14/23
furosemide 40 mg tablet 80 mg PO TUSA Fluid Retention/Swelling 07/13/23
tizanidine 2 mg tablet 2 mg PO BID Muscle Spasms 07/13/23
budesonide-formoterol HFA 160 mcg-4.5 mcg/actuation aerosol inhaler (Symbicort) 2 inh inhalation R BID Lung/Breathing Issues 10/08/23
cranberry 500 mg capsule 4,200 mg PO BID Supplement 03/22/24
pregabalin 25 mg capsule (Lyrica) 25 mg PO TIDPRN PRN neuropathy 03/22/24
potassium chloride 20 mEq tablet,extended release(part/cryst) (Klor-Con M) 20 meq PO BID Electrolyte Repletion 07/07/24
furosemide 40 mg tablet (Lasix) 40 mg PO SUMOWETHFR Fluid Retention/Swelling 07/23/24
meclizine 25 mg tablet 25 mg PO TID vertigo/dizziness 08/28/24
tiotropium bromide 18 mcg capsule with inhalation device (Spiriva with HandiHaler) 1 cap inhalation R DAILY Lung/Breathing Issues 08/28/24
azithromycin 250 mg tablet 250 mg PO Q48H INFECTION 10/22/24
benztropine 2 mg tablet 2 mg PO DAILY Neurological Condition 10/22/24
alprazolam 0.5 mg tablet 0.5 mg PO QID anxiety #0 tabs 11/09/24
azelastine 137 mcg-fluticasone 50 mcg/spray nasal spray 1 spray intranasal BID Lung/breathing issues #0 grams 11/09/24
benztropine 1 mg tablet 1 mg PO BID@1300,2000 Mental Health/Anxiety #0 tabs 11/09/24
calcium 500 mg-vitamin D3 100 unit-vitamin K 40 mcg chewable tablet 1 tab PO DAILY Supplement #0 tabs 11/09/24
polyethylene glycol 3350 17 gram oral powder packet (Miralax) 17 g PO DAILY Constipation #30 ea 11/09/24
prednisone 10 mg tablet 10 mg PO DIRECTED Lung/breathing issues #60 tabs 11/09/24
sennosides 8.6 mg capsule (senna) 8.6 mg PO BID Constipation #60 caps 11/09/24
Home Medication Changes
new
sennosides 8.6 mg capsule (senna) 8.6 mg PO BID Constipation #60 caps 11/09/24
polyethylene glycol 3350 17 gram oral powder packet (Miralax) 17 g PO DAILY Constipation #30 ea 11/09/24
Pending Results: No
[2024-11-09] MEDS: LOVENOX 40 MG SC (16:54)
--- NOTE | 2024-11-09 17:29 | W.PN.UPDATE ---
Update Note
Progress Note Update
Patient had a Bowel movement.
X ray reviewed.
More than 30 minutes spent in discharge including
Final examination of the patient
Summarizing hospital stay
Instructions for continuing care to all relevant caregivers
Preparation of discharge records, prescriptions, and referral forms
Total time spent (in minutes): 39 min
[2024-11-09 19:14] VITALS: BP 110/73
[2024-11-09] MEDS: SYMBICORT 160/4.5 MCG INHALER INH (19:16)
[2024-11-11 06:33] LABS: Aspergillus fumigatus #1 Ab None Detected (None Detected); Aspergillus fumigatus #6 Ab None Detected (None Detected); Aureobasidium pullulans Ab None Detected (None Detected); Micropolyspora faeni Ab None Detected (None Detected); Pigeon Serum Ab None Detected (None Detected)
== END 2024-11-09 19:23 | disposition home health service (06) | DRG 871 ==
LOC: 4 WEST ACU 19:21
PROVIDERS: Hospitalist; Physician Assistant; Student in an Organized Health Care Education/Training Program; ADMITTING PHYSICIAN Student in an Organized Health Care Education/Training Program; ATTENDING PHYSICIAN Hospitalist; EMERGENCY PHYSICIAN Emergency Medicine; FAMILY PHYSICIAN Student in an Organized Health Care Education/Training Program; OTHER PHYSICIAN Internal Medicine Critical Care Medicine
DX: A41.9 Sepsis, unspecified organism (principal); I50.33 Acute on chronic diastolic (congestive) heart failure; J69.0 Pneumonitis due to inhalation of food and vomit; J18.9 Pneumonia, unspecified organism; E87.1 Hypo-osmolality and hyponatremia; F03.93 Unspecified dementia, unspecified severity, with mood disturbance; F03.94 Unspecified dementia, unspecified severity, with anxiety; F11.20 Opioid dependence, uncomplicated; Z66 Do not resuscitate; E11.40 Type 2 diabetes mellitus with diabetic neuropathy, unspecified; E03.9 Hypothyroidism, unspecified; I11.0 Hypertensive heart disease with heart failure; E66.9 Obesity, unspecified; E78.00 Pure hypercholesterolemia, unspecified; K21.9 Gastro-esophageal reflux disease without esophagitis; F25.9 Schizoaffective disorder, unspecified; F31.9 Bipolar disorder, unspecified; G47.33 Obstructive sleep apnea (adult) (pediatric); G89.4 Chronic pain syndrome; I25.2 Old myocardial infarction; E83.42 Hypomagnesemia; E87.6 Hypokalemia; E87.8 Other disorders of electrolyte and fluid balance, not elsewhere classified; I89.0 Lymphedema, not elsewhere classified; J45.50 Severe persistent asthma, uncomplicated; K22.4 Dyskinesia of esophagus; D64.9 Anemia, unspecified; R09.02 Hypoxemia; M79.7 Fibromyalgia; M81.0 Age-related osteoporosis without current pathological fracture; R06.89 Other abnormalities of breathing; Z68.31 Body mass index [BMI] 31.0-31.9, adult; Z86.73 Personal history of transient ischemic attack (TIA), and cerebral infarction without residual deficits; Z79.02 Long term (current) use of antithrombotics/antiplatelets; Z79.890 Hormone replacement therapy; Z79.51 Long term (current) use of inhaled steroids; Z79.52 Long term (current) use of systemic steroids; Z79.899 Other long term (current) drug therapy; Z11.52 Encounter for screening for COVID-19; Z96.651 Presence of right artificial knee joint; Z98.84 Bariatric surgery status
CPT/HCPCS: 71046; 74019; 74230; 80048; 80053; 82085; 82550; 83516; 83605; 83735; 83880; 84100; 84145; 84484; 85025; 85652; 86038; 86039; 86140; 86200; 86225; 86235; 86331; 86430; 86606; 87040; 87449; 87502; 87807; 87811; 87899; 92526; 92610; 92611; 93005; 94640; 96361; 96374; 97116; 97162; 97167; 97530; 99285

== ENCOUNTER 2024-12-28 06:18 | Day surgery (SDC) | payer OTHER, SELFPAY | END 2024-12-28 11:07 | disposition home or self-care (01) | LOC: GI 06:18 | PROVIDERS: ATTENDING PHYSICIAN Internal Medicine Gastroenterology | DX: R13.10 Dysphagia, unspecified (principal); R12 Heartburn; Z98.0 Intestinal bypass and anastomosis status; Z98.84 Bariatric surgery status | CPT/HCPCS: 43239; 88305 ==

== ENCOUNTER → 2025-04-27 10:47 | Outpatient (REF) | payer OTHER, SELFPAY | LOC: HWRAD 10:47 | PROVIDERS: ATTENDING PHYSICIAN Internal Medicine Critical Care Medicine; FAMILY PHYSICIAN Student in an Organized Health Care Education/Training Program | DX: R91.8 Other nonspecific abnormal finding of lung field (principal) | CPT/HCPCS: 71250 ==

== ENCOUNTER 2025-09-24 12:51 | Emergency (ER) | payer OTHER, SELFPAY ==
[2025-09-24 12:56] VITALS: BP 150/83
[2025-09-24 13:19] LABS: Hematocrit 39.2 % (37.0-47.0); Hemoglobin 13.0 g/dL (12.0-16.0); Mean Corp Hgb Conc. 33.2 g/dL (33.0-37.0); Mean Corpuscular Volume 83.9 fL (81.0-99.0); Nucleated Red Blood Cells % 0 %; Platelet Count 195 10^3/uL (130-400); Red Cell Dist. Width 17.1 % (11.5-14.5)
[2025-09-24 13:34] LABS: COVID-19 Antigen Negative (Negative)
[2025-09-24 13:52] LABS: ALT (SGPT) 26 U/L (0-35); AST (SGOT) 23 U/L (14-36); Albumin 4.1 g/dl (3.5-5.0); Alkaline Phosphatase 103 U/L (38-126); Blood Urea Nitrogen 21 mg/dl (7-17); Calcium 9.0 mg/dl (8.4-10.2); Carbon Dioxide 31 mmol/L (22-30); Glucose 172 mg/dl (70-99); Potassium 4.3 mmol/L (3.5-5.1); Sodium 138 mmol/L (135-145); Total Protein 6.8 g/dl (6.3-8.2); eGFR > 60.00
[2025-09-24 13:57] LABS: Chloride 101 mmol/L (98-107)
--- NOTE | 2025-09-24 15:27 | ED.GENMED ---
History of Present Illness
General
Chief Complaint: Pneumonia Symptoms
Source: patient
Exam Limitations: none
Time Seen by Provider: 09/24/25 15:12
Nursing documentation reviewed up to this point in time: agreed with
History of Present Illness
History of Present Illness:
Pt is 70 yr female with past medical history of diverticulitis COPD asthma hypertension hyperlipidemia presents to the ER for for evaluation patient started with a cough on Wednesday. She was started on antibiotics (amoxicillin) by DR Szymanski
(pulmonary ) on Wednesday and prednisone. She has taken 30 mg per day since Wednesday. She c/o of cough and wheezing. denies any fevers.
Past History
Past History
ED Past Medical History: Asthma, CVA, HTN, Hypercholesterolemia, NIDDM, [place] and Psychiatric
ED Past Surgical History: Cholecystectomy, Gynecological (Hysterectomy), Orthopedic (right knee replacement) and Other (Gastric bypass)
Social History
Tobacco: Non-smoker
Alcohol: None
Drug: None
Personal:
Living: alone
Employment: Disabled
Family History
Family History: Asthma
Phy Exam
General Physical Exam
General Presentation: no apparent distress
General age: appears stated age
General Skin: warm and dry
General Habitus: elderly
General Mental: alert
General Hydration: appears well hydrated
Eye Exam
Eye Exam: PERRL and EOMI
Eye Exam General: PERRL: bilateral and EOM intact: bilateral
Pupil Exam: Bilateral: round and reactive
Cardiovascular Exam
Cardiovascular Exam: regular rate/rhythm, no murmur and normal peripheral pulses
Pulmonary Exam
Pulmonary Exam: no respiratory distress and other (+ exp wheezing throughout )
Neurological Exam
Neurological Exam: alert and oriented x3
Musculoskeletal Exam
Musculoskeletal Exam: full ROM
Skin Exam
Skin Exam: normal color and warm/dry
Psychiatric Exam
Psychiatric Exam: normal mood/affect
Course
Orders/Labs/Results
Orders:
Orders
09/24/25 12:55
CR Chest - 2 Views Urgent
Comment:
Reason For Exam: cough, SOB w exertion
09/24/25 12:59
Electrocardiogram (*1) Urgent
Reason for Study: Shortness of Breath
EKG- Treatment ONCE
09/24/25 13:08
Complete Blood Count/With Diff Urgent
Comprehensive Metabolic Panel Urgent
09/24/25 13:09
COVID-19 Antigen Urgent
Source: Nasal Swab
Influenza A+B Rapid Molecular Urgent
ELINOR Source: Nasal Swab
Specimen Description:
09/24/25 15:41
Albuterol Nebs [Ventolin Nebules] 2.5 mg INH R NOW STA
09/24/25 16:39
Ipratropium/Albuterol Sulfate [Duoneb] 3 ml INH R NOW STA
09/24/25 19:17
Doxycycline [Vibramycin] 100 mg PO NOW STA
Abnormal Lab Results
09/24/25
13:08
RDW 17.1 H %
(11.5-14.5)
Absolute Lymphs (auto) 0.8 L 10^3/uL
(1.2-3.4)
Neutrophils % 83.5 H %
(42.2-75.2)
Lymphocytes % 12.2 L %
(20.5-51.1)
Carbon Dioxide 31 H mmol/L
(22-30)
BUN 21 H mg/dl
(7-17)
Glucose 172 H mg/dl
(70-99)
09/24/25 13:08
09/24/25 13:08
Vital Signs
Initial and Last Documented VS:
Initial Vital Signs
Temp Pulse Resp BP Pulse Ox
97.8 F 85 24 150/83 96
09/24/25 12:56 12/08/25 12:56 09/24/25 12:56 09/24/25 12:56 09/24/25 12:56
Last Documented Vital Signs
Temp Pulse Resp BP Pulse Ox
98.4 F 93 20 138/64 94
09/24/25 19:09 09/24/25 19:09 09/24/25 19:09 09/24/25 19:09 09/24/25 19:09
MDM/Problems Addressed
Differential Diagnosis Includes:
Not limited to COVID, influenza, URI bronchitis, pneumonia, copd exacerbation
MDM/Problems Addressed:
Patient is a 18-year-old female presents with cough for past several days started on Augmentin by pulmonary and steroids. Presents with persistent cough /wheezing, no fevers. pt with + left lower lobe pneumonia on chest. non hypoxic mild cough and
wheezing. will give nebs here. pt is well appearing will plan to add doxycycline however stable for discharge home also to continue on steroids
Chronic conditions affecting care:
Asthma COPD
*Radiology
Radiology exam reviewed: radiology read reviewed
*Pulse Oximetry
SaO2: 96
Oxygen Mode of Delivery: Room air
Patient hypoxic: no
*Critical Care Note
Total Time (30-74mins, 75-104mins- exclusive of procedures): Not Applicable
ED Attending Note
-
Portions of this chart may have been created with voice recognition software.� Occasional wrong word or��sound alike� substitutions may have occurred due to the inherent limitations of voice recognition software.
Discharge Plan
Departure
Patient Disposition: Home (Routine Discharge)
Date of Disposition: 09/24/25
Time of Disposition: 18:51
Patient with high blood pressure during this ER visit?: Yes
Condition: Fair
Covid-19: Not Applicable
Discharge Problem:
Pneumonia
Instructions: Pneumonia, Adult (DC), BLOOD PRESSURE
Prescriptions:
New
doxycycline hyclate 100 mg capsule
100 mg PO BID Qty: 20 0RF
No Action
famotidine 40 MG tablet
40 mg PO HS
atorvastatin 80 mg Tablet
80 mg PO DAILY
clopidogrel 75 mg Tablet
75 mg PO DAILY
pantoprazole [Protonix] 40 mg Tablet,Delayed Release (Dr/Ec)
40 mg PO BID
benzonatate 200 mg Capsule
200 mg PO TIDPRN PRN (Reason: cough)
donepezil 10 mg Tablet
10 mg PO HS
levothyroxine 50 mcg Tablet
50 mcg PO DAILY
mirtazapine 45 mg Tablet
45 mg PO HS
Patient Comments:
take 15mg and 30mg together
valsartan 40 mg Tablet
20 mg PO DAILY
levalbuterol tartrate [Xopenex HFA] 45 mcg/actuation Hfa Aerosol Inhaler
2 inh INHALATION R Q6HPRN PRN (Reason: sob) Qty: 0
cyclobenzaprine 10 mg Tablet
10 mg PO HS
cyanocobalamin (vitamin B-12) 1,000 mcg Tablet
1,000 mcg PO Q48H
hydrocodone-acetaminophen 10-325 mg Tablet
1 tab PO QID
Patient Comments:
08/28/2024: last filled 08/02/24, 120 tabs for 30 days from [facility]
ergocalciferol (vitamin D2) 1,250 mcg (50,000 unit) Capsule
1,250 mcg PO WE
ondansetron 4 mg Tablet,Disintegrating
4 mg PO BIDPRN PRN (Reason: nausea)
memantine 10 mg tablet
10 mg PO BID
lidocaine-prilocaine 2.5-2.5 % Cream
1 applic TOPICAL Q8HPRN PRN (Reason: breakthrough mild pain )
Rx Instructions:
apply to bilateral knees, bilateral hips and lower back
tizanidine 2 mg tablet
2 mg PO BID
furosemide 40 MG tablet
80 mg PO TUSA
budesonide-formoterol [Symbicort] 160-4.5 mcg/actuation Hfa Aerosol Inhaler
2 inh INHALATION R BID
cranberry 500 mg Capsule
4,200 mg PO BID
pregabalin [Lyrica] 25 mg Capsule
25 mg PO TIDPRN PRN (Reason: neuropathy)
potassium chloride [Klor-Con M20] 20 mEq Tablet,Er Particles/Crystals
20 meq PO BID
furosemide [Lasix] 40 mg Tablet
40 mg PO SUMOWETHFR
meclizine 25 mg tablet
25 mg PO TID
tiotropium bromide [Spiriva with HandiHaler] 18 mcg capsule, w/inhalation device
1 cap inhalation R DAILY
azithromycin 250 mg Tablet
250 mg PO Q48H
benztropine 2 mg Tablet
2 mg PO DAILY
prednisone 10 mg Tablet
10 mg PO DIRECTED Qty: 60 0RF
alprazolam 0.5 mg tablet
0.5 mg PO QID Qty: 0 0RF
Patient Comments:
08/28/2024: last filled 08/07/24, 120 tabs for 30 days from [facility]
benztropine 1 mg Tablet
1 mg PO BID@1300,2000 Qty: 0 0RF
calcium-vitamin D3-vitamin K 500 mg-100 unit -40 mcg Tablet,Chewable
1 tab PO DAILY Qty: 0 0RF
azelastine-fluticasone 137-50 mcg/spray [place],Non-Aerosol
1 spray INTRANASAL BID Qty: 0 0RF
senna 8.6 mg capsule
8.6 mg PO BID Qty: 60 0RF
polyethylene glycol 3350 [Miralax] 17 gram powder in packet
17 g PO DAILY Qty: 30 0RF
Referrals:
Jermaine Bueno MD [Active, Pulmonary Medicine]
Torrie Arizmendi MD [Family Provider, Internal Medicine]
Activity Restrictions/Additional Instructions:
As discussed continue your Augmentin as previously prescribed and please add doxycycline. You were given the first dose here in the ER. As requested your prescription was sent to the [facility] on [facility]. Follow-up closely with your family
doctor in the next several days. In addition please follow-up with pulmonology. Return if any worsening of symptoms including shortness of breath.
Interventions
Interventions:
*Risk Screen - Suicide Last Done: 09/24/25 12:52
*General Assessment Last Done: 09/24/25 16:02
*Neglect/Abuse Screening Last Done: 09/24/25 12:53
*ED COVID-19 Vaccine History Last Done: 09/24/25 16:02
*ED Influenza Vaccine History Last Done: 09/24/25 16:02
[facility] Risk Assessment Tool Last Done: 09/24/25 16:02
*Nursing Disposition Last Done: 09/24/25 19:09
ED- Cardiac Assessment Last Done: 09/24/25 16:02
ED- Pulmonary Assessment Last Done: 09/24/25 16:02
Discharge Date and Time
Discharge Date/Time: 09/24/25 19:27
Print Language: AMHARIC
[2025-09-24 16:02] VITALS: BMI 33.5
[2025-09-24 16:10] VITALS: BP 102/48
[2025-09-24] MEDS: VENTOLIN NEBULES 2.5 MG INH (16:11)
[2025-09-24] MEDS: DUONEB 3 ML INH (16:58)
[2025-09-24 18:30] VITALS: BP 138/64
--- NOTE | 2025-09-24 19:08 | EDRN ---
Reviewed Discharge instructions with patient. Verbalized understanding.
[2025-09-24 19:09] VITALS: BP 138/64
[2025-09-24] MEDS: VIBRAMYCIN 100 MG PO (19:23)
== END 2025-09-24 19:27 | disposition home or self-care (01) ==
LOC: EMR 12:51
PROVIDERS: Student in an Organized Health Care Education/Training Program; EMERGENCY PHYSICIAN Emergency Medicine; FAMILY PHYSICIAN Student in an Organized Health Care Education/Training Program
DX: J44.89 Other specified chronic obstructive pulmonary disease (principal); I10 Essential (primary) hypertension; E78.00 Pure hypercholesterolemia, unspecified; E11.9 Type 2 diabetes mellitus without complications; J45.909 Unspecified asthma, uncomplicated; Z82.5 Family history of asthma and other chronic lower respiratory diseases; Z86.73 Personal history of transient ischemic attack (TIA), and cerebral infarction without residual deficits; Z90.49 Acquired absence of other specified parts of digestive tract; Z90.710 Acquired absence of both cervix and uterus; Z96.651 Presence of right artificial knee joint; Z98.84 Bariatric surgery status
CPT/HCPCS: 99283; 94640; 71046; 80053; 85025; 87502; 87811; 93005

== ENCOUNTER 2025-09-27 13:10 | Emergency (ER) | payer OTHER, SELFPAY ==
[2025-09-27 13:15] VITALS: BP 157/97
[2025-09-27 13:39] LABS: Hematocrit 43.3 % (37.0-47.0); Hemoglobin 14.2 g/dL (12.0-16.0); Mean Corp Hgb Conc. 32.8 g/dL (33.0-37.0); Mean Corpuscular Volume 82.6 fL (81.0-99.0); Nucleated Red Blood Cells % 0 %; Platelet Count 209 10^3/uL (130-400); Red Cell Dist. Width 16.6 % (11.5-14.5)
[2025-09-27 13:55] LABS: ALT (SGPT) 35 U/L (0-35); AST (SGOT) 28 U/L (14-36); Albumin 4.7 g/dl (3.5-5.0); Alkaline Phosphatase 136 U/L (38-126); Blood Urea Nitrogen 13 mg/dl (7-17); Calcium 9.0 mg/dl (8.4-10.2); Carbon Dioxide 28 mmol/L (22-30); Chloride 102 mmol/L (98-107); Glucose 202 mg/dl (70-99); Potassium 4.3 mmol/L (3.5-5.1); Sodium 139 mmol/L (135-145); Total Protein 7.9 g/dl (6.3-8.2); eGFR > 60.00
--- NOTE | 2025-09-27 15:16 | ED.GENMED ---
History of Present Illness
General
Chief Complaint: Swallowing Problem
Source: patient
Exam Limitations: none
Time Seen by Provider: 09/27/25 15:14
Nursing documentation reviewed up to this point in time: agreed with
History of Present Illness
History of Present Illness:
Patient is a 70-year-old male presents back to the ER from patient care patient seen here 3 days ago diagnosed with pneumonia. Patient was previously already prescribed amoxicillin and doxycycline with added. she reports since then she is having
difficulty swallowing food. She feels burning in her esophagus and feels that food is 'not going down all of the way.' She is able to swallow secretions and drink fluids. Pt denies any fever/chills. She still continues to have cough but denies
any shortness of breath fever chills. It is documented that she has esophageal motility disorder. Patient is followed by GI and had endoscopy in December 2024. This showed Polina-en-Y gastrojejunostomy with gastrojejunal anastomosis characterized by
healthy-appearing mucosa minimal amount of retained food normal examined. It was recommended that time to continue small frequent meals.
Patient was sent by her primary care physician out of concern of not eating for the past several days however pt continues to drink
Past History
Past History
ED Past Medical History: Asthma, CVA, HTN, Hypercholesterolemia, NIDDM, [place] and Psychiatric
ED Past Surgical History: Cholecystectomy, Gynecological (Hysterectomy), Orthopedic (right knee replacement) and Other (Gastric bypass)
Social History
Tobacco: Non-smoker
Alcohol: None
Drug: None
Personal:
Living: alone
Employment: Disabled
Family History
Family History: Asthma
Phy Exam
General Physical Exam
General Presentation: no apparent distress
General Skin: warm and dry
General Habitus: normal
General Mental: alert
General Hydration: appears well hydrated
ENT Exam
ENT Exam: pharynx normal and neck supple
Cardiovascular Exam
Cardiovascular Exam: regular rate/rhythm, no murmur and normal peripheral pulses
Pulmonary Exam
Pulmonary Exam: lungs clear and no respiratory distress
Neurological Exam
Neurological Exam: alert and oriented x3
Musculoskeletal Exam
Musculoskeletal Exam: full ROM
Skin Exam
Skin Exam: normal color and warm/dry
Psychiatric Exam
Psychiatric Exam: normal mood/affect
Course
Orders/Labs/Results
Orders:
Orders
09/27/25 13:33
Complete Blood Count/With Diff Urgent
Comprehensive Metabolic Panel Urgent
09/27/25 16:05
Mag Hydrox/Al Hydrox/Simeth [Maalox] 30 ml Phenobarb/Hyoscy/Atropine/Scop [] 10 ml PO NOW
09/27/25 16:11
Vital Signs- Treatment ONCE
Frequency: Once
09/27/25 16:12
Mag Hydrox/Al Hydrox/Simeth [Maalox] 30 ml .ROUTE .STK-MED ONE
Phenobarb/Hyoscy/Atropine/Scop [] 10 ml .ROUTE .STK-MED ONE
Abnormal Lab Results
09/27/25
13:33
MCHC 32.8 L g/dL
(33.0-37.0)
RDW 16.6 H %
(11.5-14.5)
Absolute Lymphs (auto) 0.7 L 10^3/uL
(1.2-3.4)
Neutrophils % 84.8 H %
(42.2-75.2)
Lymphocytes % 12.2 L %
(20.5-51.1)
Glucose 202 H mg/dl
(70-99)
Alkaline Phosphatase 136 H U/L
(38-126)
09/27/25 13:33
09/27/25 13:33
Vital Signs
Initial and Last Documented VS:
Initial Vital Signs
Temp Pulse Resp BP Pulse Ox
98.0 F 91 16 157/97 98
09/27/25 13:15 09/27/25 13:15 09/27/25 13:15 09/27/25 13:15 09/27/25 13:15
Last Documented Vital Signs
Temp Pulse Resp BP Pulse Ox
98.0 F 84 16 165/85 95
09/27/25 13:15 09/27/25 16:21 09/27/25 16:21 09/27/25 16:21 09/27/25 16:21
MDM/Problems Addressed
Differential Diagnosis Includes:
Not limited to dysphagia
MDM/Problems Addressed:
Patient as documented is a 70-year-old female seen several days ago for pneumonia. Pt with no fever chills, reports coughing is improving.
She has a history of esophageal motility issues and feels this has been acting up again. In addition she has history of Heartburn and feels that is contributing. She is on Protonix. She is drinking fluids and is well hydrated. no difficult
tolerating her secretions, pharynx is clear.
labs nml.
Lungs cta non hypoxic
She is followed by GI for her motility issues. Will d/c on soft small meals.. smoothies yogurts etc.. She has no difficulty drinking fluids and feels well enough to go home. She is to continue Protonix and also has Carafate at home to use as
needed discussed using this as well. She is non toxic appearing. I spoke with pt's pcp and she has an outpt swallow study /speech/swallow therapy scheduled.
Chronic conditions affecting care:
motility issues
*Pulse Oximetry
SaO2: 98
Oxygen Mode of Delivery: Room air
Patient hypoxic: no
*Critical Care Note
Total Time (30-74mins, 75-104mins- exclusive of procedures): Not Applicable
Data Reviewed
Review of Other/Old Records Reveals: Discharge Summary and Other (GI endoscopy previous ER chart imaging)
Patient Management
Discussion with other providers: PCP
ED Attending Note
-
Portions of this chart may have been created with voice recognition software.� Occasional wrong word or��sound alike� substitutions may have occurred due to the inherent limitations of voice recognition software.
Discharge Plan
Departure
Patient Disposition: Home (Routine Discharge)
Date of Disposition: 09/27/25
Time of Disposition: 16:11
Patient with high blood pressure during this ER visit?: Yes
Condition: Good
Covid-19: Not Applicable
Discharge Problem:
Dysphagia
Instructions: Dysphagia, BLOOD PRESSURE
Prescriptions:
No Action
famotidine 40 MG tablet
40 mg PO HS
atorvastatin 80 mg Tablet
80 mg PO DAILY
clopidogrel 75 mg Tablet
75 mg PO DAILY
pantoprazole [Protonix] 40 mg Tablet,Delayed Release (Dr/Ec)
40 mg PO BID
benzonatate 200 mg Capsule
200 mg PO TIDPRN PRN (Reason: cough)
donepezil 10 mg Tablet
10 mg PO HS
levothyroxine 50 mcg Tablet
50 mcg PO DAILY
mirtazapine 45 mg Tablet
45 mg PO HS
Patient Comments:
take 15mg and 30mg together
valsartan 40 mg Tablet
20 mg PO DAILY
levalbuterol tartrate [Xopenex HFA] 45 mcg/actuation Hfa Aerosol Inhaler
2 inh INHALATION R Q6HPRN PRN (Reason: sob) Qty: 0
cyclobenzaprine 10 mg Tablet
10 mg PO HS
cyanocobalamin (vitamin B-12) 1,000 mcg Tablet
1,000 mcg PO Q48H
hydrocodone-acetaminophen 10-325 mg Tablet
1 tab PO QID
Patient Comments:
08/28/2024: last filled 08/02/24, 120 tabs for 30 days from [facility]
ergocalciferol (vitamin D2) 1,250 mcg (50,000 unit) Capsule
1,250 mcg PO WE
ondansetron 4 mg Tablet,Disintegrating
4 mg PO BIDPRN PRN (Reason: nausea)
memantine 10 mg tablet
10 mg PO BID
lidocaine-prilocaine 2.5-2.5 % Cream
1 applic TOPICAL Q8HPRN PRN (Reason: breakthrough mild pain )
Rx Instructions:
apply to bilateral knees, bilateral hips and lower back
tizanidine 2 mg tablet
2 mg PO BID
furosemide 40 MG tablet
80 mg PO TUSA
budesonide-formoterol [Symbicort] 160-4.5 mcg/actuation Hfa Aerosol Inhaler
2 inh INHALATION R BID
cranberry 500 mg Capsule
4,200 mg PO BID
pregabalin [Lyrica] 25 mg Capsule
25 mg PO TIDPRN PRN (Reason: neuropathy)
potassium chloride [Klor-Con M20] 20 mEq Tablet,Er Particles/Crystals
20 meq PO BID
furosemide [Lasix] 40 mg Tablet
40 mg PO SUMOWETHFR
meclizine 25 mg tablet
25 mg PO TID
tiotropium bromide [Spiriva with HandiHaler] 18 mcg capsule, w/inhalation device
1 cap inhalation R DAILY
azithromycin 250 mg Tablet
250 mg PO Q48H
benztropine 2 mg Tablet
2 mg PO DAILY
prednisone 10 mg Tablet
10 mg PO DIRECTED Qty: 60 0RF
alprazolam 0.5 mg tablet
0.5 mg PO QID Qty: 0 0RF
Patient Comments:
08/28/2024: last filled 08/07/24, 120 tabs for 30 days from [facility]
benztropine 1 mg Tablet
1 mg PO BID@1300,2000 Qty: 0 0RF
calcium-vitamin D3-vitamin K 500 mg-100 unit -40 mcg Tablet,Chewable
1 tab PO DAILY Qty: 0 0RF
azelastine-fluticasone 137-50 mcg/spray [place],Non-Aerosol
1 spray INTRANASAL BID Qty: 0 0RF
senna 8.6 mg capsule
8.6 mg PO BID Qty: 60 0RF
polyethylene glycol 3350 [Miralax] 17 gram powder in packet
17 g PO DAILY Qty: 30 0RF
doxycycline hyclate 100 mg capsule
100 mg PO BID Qty: 20 0RF
Referrals:
UNKNOWN - PT DOES,NOT KNOW [Unknown Provider]
Activity Restrictions/Additional Instructions:
Continue to take your Protonix as previously recommended and also use Carafate. Soft small meals as discussed. Stay well-hydrated. Follow-up family doctor for additional evaluation/out patient studies as ordered. Return for any worsening of
symptoms.
Interventions
Interventions:
*Risk Screen - Suicide Last Done: 09/27/25 13:15
*General Assessment Last Done: 09/27/25 13:15
*Neglect/Abuse Screening Last Done: 09/27/25 13:15
*ED COVID-19 Vaccine History Last Done: 09/27/25 15:26
*ED Influenza Vaccine History Last Done: 09/27/25 15:26
[facility] Fall Risk Assessment Tool Last Done: 09/27/25 15:25
*Nursing Disposition Last Done: 09/27/25 16:21
ME-Ktljer-Tsgcpzemep Assessment Last Done: 09/27/25 15:26
ED-EENT Assessment Last Done: 09/27/25 15:26
ED- Neurological Assessment Last Done: 09/27/25 15:26
ED- Pulmonary Assessment Last Done: 09/27/25 15:26
ED Swallowing Screen Last Done: 09/27/25 15:27
Discharge Date and Time
Discharge Date/Time: 09/27/25 16:34
Print Language: MOLDOVAN
[2025-09-27 15:23] VITALS: BP 164/108
--- NOTE | 2025-09-27 15:45 | CM ---
Patient seen in ED at request of PCP. Patient lives with daughter and grandson Adrian. Patient PCP is Dr. Gamino and patient uses [facility]. Patient stated that the pharmacy is closed at 6pm. Patient uses [facility] in [place] if after 6pm.
Patient also stated that Adrian's father was home with him today and that her brother who is now home from the hospital would be able to care for Adrian at this time. Patient stated she did not want to come to the ED if Adrian not cared for. Patient
daughter Anni is not normally the caregiver for Adrian and patient assured CM that supports were in place. BILLING SPECIALIST aware and in contact with PCP. Patient awaiting medical treatment plan to determine if she will stay at hospital or return home. CM will
continue to follow for discharge planning needs.
Plan; home with VN vs home with no needs.
[2025-09-27] MEDS: MAALOX 40 PO (16:13)
[2025-09-27 16:21] VITALS: BP 165/85
== END 2025-09-27 16:34 | disposition home or self-care (01) ==
LOC: EMR 13:10
PROVIDERS: Emergency Medicine; EMERGENCY PHYSICIAN Emergency Medicine; FAMILY PHYSICIAN Student in an Organized Health Care Education/Training Program
DX: K22.4 Dyskinesia of esophagus (principal); E11.9 Type 2 diabetes mellitus without complications; I10 Essential (primary) hypertension; E78.00 Pure hypercholesterolemia, unspecified; I25.2 Old myocardial infarction; J45.909 Unspecified asthma, uncomplicated; Z79.02 Long term (current) use of antithrombotics/antiplatelets; Z86.73 Personal history of transient ischemic attack (TIA), and cerebral infarction without residual deficits; Z98.84 Bariatric surgery status; Z96.651 Presence of right artificial knee joint; Z82.5 Family history of asthma and other chronic lower respiratory diseases
CPT/HCPCS: 99283; 80053; 85025